=== PATIENT | female | born 1945 | race Caucasian/White ===

== ENCOUNTER 2018-12-31 00:15 | Inpatient (IN) | payer MEDICARE ==
[2018-12-31 02:09] VITALS: BP 122/75
[2018-12-31] MEDS ORDERED: Magnesium Hydroxide (MOM) 30 mL UDC PO PRN (02:26)
[2018-12-31] MEDS ORDERED: Maalox 30 mL Cup PO PRN (02:26)
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
[2019-01-01 08:13] LABS: A1C 5.5 % (4.8-5.6)
--- NOTE | 2019-01-02 00:39 | Progress Notes ---
DATE: PATIENT'S ID: The patient is a 73-year-old female. SUBJECTIVE: The patient seen and examined. The patient is lying in the bed. The patient denies any chest pain, shortness of breath, palpitation, dizziness, nausea, vomiting. PHYSICAL EXAMINATION: VITAL SIGNS: Temperature 97.6, pulse 75, respiratory rate 18, blood pressure 126/68. HEENT: No facial asymmetry. NECK: Supple, no JVD. HEART: Regular. CHEST AND LUNGS: Equal in expansion, no expiratory wheezing. ABDOMEN: Soft. EXTREMITIES: No edema. NEUROLOGIC: Alert, awake, follows commands. Decreased power throughout the upper and lower extremity. AVAILABLE DIAGNOSTIC DATA: None for my review. CLINICAL IMPRESSION: 1. Alzheimer's type dementia. 2. Hyperlipidemia. 3. Degenerative joint disease. 4. Osteoporosis. PLAN: 1. Psychotic evaluation and management deferred to psychiatrist. 2. Symptoms management. 3. Medication management. 4. Fall precautions. 5. Nutritional support. 6. General nursing care. 7. Care plan reviewed and discussed with staff. JOB# [id number]
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
--- NOTE | 2019-01-03 03:25 | Progress Notes ---
DATE: SUBJECTIVE: Chart was reviewed and the patient interviewed. Also discussed the patient's condition with the staff and reviewed records and labs. The patient is slightly confused. The patient also is withdrawn and she is also forgetful. At times, the patient seems to be fearful. She is interacting minimally with others. On the other hand, the patient is compliant with taking medications with no side effects of medications. ASSESSMENT: The patient is still depressed, psychotic, and unable to make her own decision. TREATMENT PLAN: Continue to monitor her behavior closely. Also, continue Namenda 5 mg twice a day and Aricept 10 mg at bedtime and continue to follow up closely. JOB# [id number]
--- NOTE | 2019-01-04 09:01 | Progress Notes ---
DATE: SUBJECTIVE: Chart was reviewed and the patient interviewed. Also discussed the patient's condition with the staff and reviewed records and labs. The patient remains confused and anxious. The patient also still needs lots of redirections. The patient also is still unable to provide any safe plan for self-care. At the same time, the patient continues to interact more and personal hygiene is fair and appetite is fair. ASSESSMENT: The patient is still confused and still needs a lot of caring. Also, the patient will need placement. [facility]# [id number]
--- NOTE | 2019-01-04 18:31 | Progress Notes ---
DATE: 01/04/2019 DATE OF SERVICE: 01/04/2019 IDENTIFICATION: A 73-year-old female. SUBJECTIVE: The patient seen and examined. The patient is lying in the bed. The patient denies any chest pain, shortness of breath, palpitation, dizziness, nausea, vomiting, diarrhea. PHYSICAL EXAMINATION: VITAL SIGNS: Temperature 96.9, pulse 70, respiratory rate 18, blood pressure 124/75. HEENT: No facial asymmetry. Poor dentition noted. NECK: Supple, no JVD, no hepatojugular reflux. No lymphadenopathy. HEART: Both heart sounds are regular. CHEST AND LUNGS: Equal in expansion, no expiratory wheezing. ABDOMEN: Soft, no guarding, no rigidity. Bowel sounds present. No palpable mass. EXTREMITIES: No edema. CLINICAL IMPRESSION: 1. Hyperlipidemia. 2. Osteoporosis. 3. Degenerative joint disease. 4. Alzheimer's type dementia. 5. Fall risk. PLAN: 1. Psychiatric evaluation and management deferred to psychiatrist. 2. Fall precautions. 3. Continue Aricept. 4. Symptoms management. 5. Medication management. 6. General nursing care. 7. We will follow this patient during the stay in the hospital. 8. Care plan reviewed and discussed with staff. JOB# [id number]
--- NOTE | 2019-01-04 21:11 | Progress Notes ---
DATE: 01/04/2019 SUBJECTIVE: Chart was reviewed and the patient interviewed. Also discussed the patient's condition with the staff and reviewed records and labs. The patient is still confused. The patient also is still asking "want to go home." Her judgment is still poor and the patient is still unable to make any safe plan for selfcare. The patient also is still anxious and is still depressed. Otherwise, no behavioral problems. ASSESSMENT: The patient is still depressed and is still considered to be gravely disabled. TREATMENT PLAN: Continue to monitor behavior and condition closely. Also, continue adjusting psychotropic medications and working on behavioral modification as well as placement issue. [facility]# [id number]
--- NOTE | 2019-01-05 22:48 | Progress Notes ---
DATE: SUBJECTIVE: Chart was reviewed and the patient interviewed. Also discussed the patient's condition with the staff and reviewed records and labs. The patient remains in a depressed mood. The patient also still seems to be confused with a flat affect. She also is still forgetful and she is still unable to provide any safe plan for selfcare. The patient also is still suspicious and seems to be paranoid. Otherwise, she is able to follow directions with no problems. ASSESSMENT: The patient is still depressed and still considered to be gravely disabled and unable to make decisions for herself at this time. TREATMENT PLAN: We will continue monitoring her behavior closely. Also, continue Aricept at a dose of 10 mg every day and Namenda was increased to 5 mg twice a day. Also, working on discharge plans and placement issue. JOB# [id number]
--- NOTE | 2019-01-07 01:30 | Progress Notes ---
DATE: 01/06/2019 SUBJECTIVE: Chart was reviewed and the patient interviewed. Also I discussed the patient's condition with the staff and reviewed records and labs. The patient is still withdrawn and guarded. The patient also is suspicious and paranoid and seems to be preoccupied. The patient also is forgetful and confused and needs lots of redirections. She also continued to be unable to provide any safe plan for self-care. ASSESSMENT: The patient is still psychotic. TREATMENT PLAN: Continue to monitor her behavior and her condition closely. Also, we will continue adjusting psychotropic medications and continue Namenda 5 mg twice a day and Aricept 10 mg at bedtime and continue to monitor behavior and condition closely. [facility]# [id number]
--- NOTE | 2019-01-07 22:39 | Progress Notes ---
DATE: 01/07/2019 SUBJECTIVE: Chart reviewed and the patient interviewed. Also discussed the patient's condition with the staff and reviewed records and labs. The patient is still confused and she still needs directions. The patient also is still anxious about where she is going to live and still unable to come up with a safe plan for her self-care or her discharge. She is still suspicious and slightly paranoid. Otherwise, the patient is easy to redirect her, and she is compliant with taking her Namenda and Aricept with no side effects. ASSESSMENT: The patient is still confused and considered to be gravely disabled. TREATMENT PLAN: Continue monitoring her behavior and her condition closely. Also, continue to work on discharge plans and placement issue. [facility]# [id number]
--- NOTE | 2019-01-08 20:52 | Progress Notes ---
DATE: 01/08/2019 PSYCHIATRIC PROGRESS NOTE SUBJECTIVE: Chart was reviewed and the patient interviewed. Also discussed the patient's condition with the staff and reviewed records and labs. The patient is still confused and still needs lots of redirections. The patient also is still isolative and tends to stay by herself most of the time. She also is still suspicious. On the other hand, the patient continued to comply with taking her medications with no side effects of medications. ASSESSMENT: The patient is still confused and needs redirections. TREATMENT PLAN: Continue to monitor her behavior and her condition closely. Also, continue working on adjusting her psychotropic medications and also working on placement issue and discharge plans. JOB# [id number]
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
--- NOTE | 2019-01-10 09:59 | Progress Notes ---
DATE: SUBJECTIVE: Chart was reviewed and the patient interviewed. Also discussed the patient's condition with the staff and reviewed records and labs. The patient is still forgetful and still needs redirections, but at the same time, the patient is pleasant and exhibiting no major behavioral problems. The patient also is able to follow instructions. She also still needs redirections. The patient also still unable to come up with a safe plan for self care because of her memory and forgetfulness. ASSESSMENT: The patient is still considered to be gravely disabled. TREATMENT PLAN: Continue to work with discharge planners in regard to placement issue and continue to follow up closely. Also, we will increase Namenda to 10 mg twice a day and continue Aricept to 10 mg every day and will continue to follow up. [facility]# [id number]
--- NOTE | 2019-01-11 18:55 | Progress Notes ---
DATE: SUBJECTIVE: Chart was reviewed and the patient interviewed. Also discussed the patient's condition with the staff and reviewed records and labs. The patient is calm, quiet, and withdrawn. The patient also is still confused and asking to go home, but have no safe plan for her going home. The patient also is still anxious. Otherwise, the patient denies any side effects of medications and continues to take Aricept and Namenda. ASSESSMENT: The patient is still considered to be gravely disabled. TREATMENT PLAN: Continue to monitor her behavior and her condition closely and continue working on discharge plans and placement issue. JOB# [id number]
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
--- NOTE | 2019-01-16 01:43 | Progress Notes ---
DATE: 01/15/2019 SUBJECTIVE: Chart was reviewed and the patient interviewed. Also discussed the patient's condition with the staff and reviewed records and labs. The patient is still confused and still needs lots of redirections. The patient also is withdrawn and interacting minimally with others. The patient, on the other hand is compliant with taking her medications with no side effects of medications. ASSESSMENT: The patient is still considered to be gravely disabled and confused. TREATMENT PLAN: Continue monitoring her behavior and her condition closely. Also, continue adjusting psychotropic medications and follow up closely, also working on discharge plans and placement issue. JOB# [id number]
--- NOTE | 2019-01-17 01:50 | Progress Notes ---
DATE: 01/16/2019 Case was discussed with staff of the patient, reviewed records. Covering for Dr. Mason. This is a well-known case to me as I have evaluated her upon admission. The patient is somewhat brighter. The patient continues to be; however, withdrawn, interacting minimally with staff. The patient; however, is compliant with the medication with no side effects. Continues to be unable to make safe plan for self-care. She is somewhat confused. No side effects with the medication, no sedation, no nausea, no extrapyramidal symptoms. We will continue to work with the patient in group therapy, milieu therapy, adjust medication as needed. JOB# [id number]
--- NOTE | 2019-01-17 22:58 | Progress Notes ---
DATE: 01/17/2019 Case was discussed with staff of the patient, reviewed records. The patient continues to be confused, withdrawal, isolate herself, minimal interaction, unable to formulate a safe plan for self-care. Continues to be unpredictable, impulsive. No side effects of the medication, no sedation, no nausea. We will continue to work with the patient in group therapy, milieu therapy, and adjust the medication as needed. [facility]# [id number]
--- NOTE | 2019-01-18 18:39 | Progress Notes ---
DATE: SUBJECTIVE: Chart was reviewed and the patient interviewed. Also discussed the patient's condition with the staff and reviewed records and labs. The patient is still in a depressed mood and the patient is still anxious. The patient also is still forgetful and has difficulty making up her needs known. The patient also is still unable to provide any safe plan for her self-care. At the same time, the patient is compliant with taking her medications and cooperative with her treatment. ASSESSMENT: The patient is still depressed and confused and considered to be gravely disabled. TREATMENT PLAN: We will continue monitoring her behavior and her condition and continue adjusting psychotropic medications and work on behavioral modification. JOB# [id number]
--- NOTE | 2019-01-19 06:37 | Progress Notes ---
DATE: SUBJECTIVE: Chart reviewed and the patient interviewed. Also discussed the patient's condition with the staff and reviewed records and labs. The patient is still in a depressed mood and she is still withdrawn. The patient also is forgetful and she is still trying to manage and still has difficulty providing any safe plan for self-care. The patient is still guarded and withdrawn. ASSESSMENT: The patient is still forgetful and unable to provide safe plan for self-care. TREATMENT PLAN: Continue monitoring her behavior closely. Also waiting for showcase maker to bring outcome of her placement and up until now the patient has no place to live. At the same time, we will continue working on placement and followup. JOB# [id number]
--- NOTE | 2019-01-20 19:10 | Progress Notes ---
DATE: 01/20/2019 DATE OF SERVICE: 01/20/2019 SUBJECTIVE: Chart was reviewed and the patient interviewed. Also discussed the patient's condition with the staff and reviewed records and labs. The patient remains in a depressed mood. The patient also is still anxious and is still withdrawn and guarded. The patient also seems to be confused and still needs redirections and assurance. She is compliant with taking her medications. The patient is still unable to provide any safe plan for self-care and still needs close monitoring and reassurance. The patient also still waiting for placement. ASSESSMENT: The patient is still considered to be gravely disabled. TREATMENT PLAN: We will continue monitoring her behavior and her condition and also continue to work on her ineffective coping. Also, working with senior case manager in regard to discharge plans and placement issue. JOB# [id number]
--- NOTE | 2019-01-22 09:58 | Progress Notes ---
DATE: 01/21/2019 SUBJECTIVE: Chart reviewed and the patient interviewed. Also discussed the patient's condition with the staff and reviewed records and labs. The patient is still in a depressed mood. The patient also is still confused and anxious and still unable to come up with a safe plan for safety care. The patient also still has difficulty with making plan for her discharge and still think that she can go home. At the same time working with the staff to get her to go to [facility] and will continue Abilify same dose and continue to follow up. JOB# [id number]
--- NOTE | 2019-01-22 22:49 | Progress Notes ---
DATE: SUBJECTIVE: Chart was reviewed and the patient interviewed. Also discussed the patient's condition with the staff and reviewed records and labs. The patient is still confused and still needs redirections. The patient also is still forgetful and still has difficulty retaining patient information. She is still asking for going home with no safe plan for self-care. On the other hand, no side effects of medications. ASSESSMENT: The patient is still considered to be gravely disabled. TREATMENT PLAN: I did fill some information to [facility] regarding her placement there. Waiting for approval from [facility] to be transferred there. At the same time, we will continue to monitor medications and condition and continue to follow up. JOB# [id number]
--- NOTE | 2019-01-24 02:35 | Progress Notes ---
DATE: 01/23/[address] Mason. Case was discussed with staff of the patient, reviewed records. This is a well-known case to me. I have seen her before covering for Dr. Mason. The patient continues to be confused, needing redirection. Continues to be very forgetful, difficulty retaining information. She is still asking to go home with no safe plan for self-care. She is compliant with the medication with no side effects. Continues to be considered gravely disabled. She has been compliant with the medication with no side effects, no sedation, no nausea and she is on Aricept and Namenda. We will continue to work with the patient in group therapy, milieu therapy, and adjust the medication as needed. JOB# [id number]
--- NOTE | 2019-01-25 11:55 | Progress Notes ---
DATE: 01/24/2019 SUBJECTIVE: Chart was reviewed and the patient interviewed. Also discussed the patient's condition with the staff and reviewed records and labs. The patient is still anxious and depressed. The patient also is still slightly confused. She is also interacting minimally with others. The patient also is still forgetful and needs lots of redirections. Otherwise, the patient is compliant with taking her medications with no side effects of medications. ASSESSMENT: The patient is still forgetful and needs placement. TREATMENT PLAN: We will monitor her behavior closely. Also discussed with case hardenermanager cardiac issue and waiting for conservative shift and also to try to get approval for the patient from Adult Protective Services in order to place the patient. At the same time, the patient still needs close monitoring and needs to work on her confusion and continue to follow up. JOB# [id number]
--- NOTE | 2019-01-26 18:21 | Progress Notes ---
DATE: 01/25/2019 SUBJECTIVE: Chart was reviewed and the patient interviewed. Also discussed the patient's condition with the staff and reviewed records and labs. The patient is still confused and anxious, but her affect is brighter. The patient also is cooperative with her treatment. She denies any intention to harm herself or others. She still has no safe plan for her discharge. ASSESSMENT: The patient is still concerned to be gravely disabled. TREATMENT PLAN: Continue Namenda 10 mg twice a day and Aricept 10 mg at bedtime. Also, continue working on her ineffective coping and her placement issue and discharge plans. optician manager still waiting for some kind of approval from a conservator in order for the patient to go to [facility]. At the same time, we will continue monitoring behavior and condition closely and continue to follow up. JOB# [id number]
--- NOTE | 2019-01-27 08:08 | Progress Notes ---
DATE: SUBJECTIVE: Chart was reviewed and the patient interviewed. Also discussed the patient's condition with the staff and reviewed records and labs. The patient is still depressed and confused. The patient also is still isolative and withdrawn. She also is still feeling hopeless and helpless. Otherwise, the patient is still unable to provide any safe plan for self-care and is still talking about going to her home and about her mom's need in the bank. ASSESSMENT: The patient is still gravely disabled. TREATMENT PLAN: Continue to monitor her behavior and her current condition. Also, continue to monitor psychotropic medications. [facility]# [id number]
--- NOTE | 2019-01-27 23:40 | Progress Notes ---
DATE: 01/27/[address] Mason. SUBJECTIVE: This is a well-known case to me and seen him before many times covering for Dr. Mason. The patient continues to be confused, depressed, isolating herself, feeling hopeless and helpless, unable to provide a safe plan for self-care, unpredictable, impulsive. She is still gravely disabled. Continue to being compliant with the medication with no side effects. We will continue the patient in group therapy, milieu therapy, adjust medication as needed. [facility]# [id number]
--- NOTE | 2019-01-28 12:19 | Progress Notes ---
DATE: 01/28/2019 FOLLOWUP PROGRESS NOTE PROGRESS ON THE UNIT: Case discussed with staff of the patient, reviewed records. The patient continues to be unpredictable, impulsive, confused, unable to make a safe plan for self-care, preoccupied with discharge, easily agitated. No side effects to the medication, no sedation, no nausea, no extrapyramidal symptoms. We will continue to work with the patient in group therapy and milieu therapy, adjust the medication as needed. JOB# [id number]
--- NOTE | 2019-01-30 05:11 | Progress Notes ---
DATE: SUBJECTIVE: Chart was reviewed and the patient interviewed. Also discussed the patient's condition with the staff and reviewed records and labs. The patient is still forgetful and still has difficulty making decisions. She also is still in a depressed mood. On the other hand, the patient is calm and cooperative and she is compliant with medications and also is still waiting for placement issue. drug worker is still reporting the patient's money is locked and waiting to release the money. On the other hand, the patient is still close observation, close monitoring. ASSESSMENT: The patient is still depressed but cooperative. TREATMENT PLAN: Continue monitoring her behavior. Also, continue to work with employment case manager in regard to discharge plans and placement issue. JOB# [id number]
--- NOTE | 2019-01-30 18:57 | Progress Notes ---
DATE: 01/30/2019 SUBJECTIVE: Chart reviewed and the patient interviewed. Also discussed the patient's condition with the staff and reviewed the records and labs. The patient is still confused. The patient also is still withdrawn and interacting minimally with others. The patient also still needs a lot of redirections and also needs encouragement. Otherwise, the patient is compliant with taking her medications. ASSESSMENT: The patient is still considered to be gravely disabled. TREATMENT PLAN: Continue to monitor her behavior and her condition closely. Also, continue to work on her ineffective coping as well as on discharge plans and placement issue. developer relations manager still telling me that patient's money is locked and there is no place to accept her. We will continue working on placement issue and on discharge plans. JOB# [id number]
--- NOTE | 2019-01-31 18:31 | Progress Notes ---
DATE: 01/31/2019 SUBJECTIVE: Chart reviewed and the patient interviewed. Also discussed the patient's condition with the staff and reviewed records and labs. The patient is still confused and is still withdrawn. The patient also still has difficulty carrying on conversation or making up decisions regard to her placement and she is still thinking that "I want to go home." Continued to discuss with the patient that she is not able to return back to her home, but the patient has difficulty accepting that. At the same time, case investigator is still trying to get the patient placed, but waiting for release of her funds. ASSESSMENT: The patient is still considered to be gravely disabled. TREATMENT PLAN: Continue current treatment and hospitalization. Also, continue to work on placement of the patient and followup. JOB# [id number]
--- NOTE | 2019-02-03 16:43 | Progress Notes ---
DATE: SUBJECTIVE: Chart was reviewed and the patient interviewed. Also discussed the patient's condition with the staff and reviewed records and labs. The patient is withdrawn and she is paranoid. The patient also is guarded and still needs lots of redirections. She is still unable to provide any safe plan for self-care. ASSESSMENT: The patient is still paranoid and still considered to be gravely disabled. TREATMENT PLAN: Continue to monitor behavior and condition. Also, porter sample case continued to try to place the patient somewhere, but still saying that the patient's funds are locked and is still trying to get her placed when her funds are released. At the same time, we will continue to monitor her medications and continue to follow up. [facility]# [id number]
--- NOTE | 2019-02-03 16:43 | Progress Notes ---
DATE: 02/02/2019 SUBJECTIVE: Chart was reviewed and the patient interviewed. Also discussed the patient's condition with the staff and reviewed records and labs. The patient is still anxious about her discharge and she is still unable to provide a safe plan for self-care. She still thinks that she can go home. On the other hand, the patient is easier to redirect and she is accepting instructions from staff. She also denies any intention to harm herself or others. She also is compliant with taking medications with no side effects of medications. ASSESSMENT: The patient still needs close monitoring and need placement and considered to be gravely disabled. TREATMENT PLAN: Continue to monitor her behavior and her condition and continue monitoring psychotropic medications. Also, continue to work on placement issue and discharge plans. JOB# [id number]
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
--- NOTE | 2019-02-04 09:21 | Progress Notes ---
DATE: 02/04/2019 SUBJECTIVE: The patient in the hospital, no confirmed discharge plan, noted by nursing staff to be generally calm and cooperative, but confused. Sleeping fairly well, eating with some prompting. AO to name only. No agitation, no escalation of behaviors, unable to care for her basic needs. We are trying to help her with placement, sometimes preoccupied with own thoughts, withdrawn. We will continue to monitor. We are actively trying to confirm a safe discharge plan. The patient quite confused. JOB# [id number]
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
--- NOTE | 2019-02-07 02:22 | Progress Notes ---
DATE: 02/06/2019 SUBJECTIVE: The patient remains very preoccupied, confused, demanding that I call the copy center specialist, "they know me." ASSESSMENT: The patient poorly oriented, ongoing concerns about her ability to care for self. The patient has fair sleep, fair appetite, mostly keeping to herself, highly disoriented. PLAN: We will continue to monitor. We are trying to figure out a safe discharge plan. Continue current dosing of Namenda. JOB# [id number]
--- NOTE | 2019-02-07 21:47 | Progress Notes ---
DATE: 02/07/2019 SUBJECTIVE: Chart reviewed and patient interviewed. Also discussed the patient's condition with the staff and reviewed records and labs. The patient is still anxious and is still confused. The patient also is still wondering about "going home." She is still not able to come up with a safe plan for self-care. At the same time, case loader operator is still unable to provide placement for the patient and still working with public office in order to try to get her placed. ASSESSMENT: The patient is still confused and needs placement and redirections. TREATMENT PLAN: Continue to monitor behavior and continue to work on her irritability and we will continue to follow up. JOB# [id number]
--- NOTE | 2019-02-08 20:36 | Progress Notes ---
DATE: 02/08/2019 SUBJECTIVE: Chart was reviewed and the patient interviewed. Also discussed the patient's condition with the staff and reviewed records and labs. The patient's affect is brighter, but she is still confused and the patient is still unable to provide a safe plan for self-care. She also is still anxious and is still in a depressed mood at times, but most of the time she seemed cheerful. She denies any intention to harm herself or others, but she is still unable to provide any safe plan for self-care. ASSESSMENT: The patient is still confused and considered gravely disabled and waiting for nurse case management, with placement issues and situations. The patient still needs placement and we will continue to work on placement issue. TREATMENT PLAN: We will plan to continue to work on placement issue and discharge plans and continue to follow up. JOB# [id number]
--- NOTE | 2019-02-09 21:29 | Progress Notes ---
DATE: 02/09/2019 SUBJECTIVE: Chart was reviewed and the patient interviewed. Also discussed the patient's condition with the staff and reviewed records and labs. The patient is still confused and is still in a depressed mood and still unable to provide any safe plan for self-care. The patient also is still anxious. The patient also is denying any intention to harm herself or others, but at the same time, she is unable to provide any safe plan for self-care. She also is still confused. Otherwise, the patient is compliant with taking her medications and no behavioral issues. ASSESSMENT: The patient is still considered to be gravely disabled. TREATMENT PLAN: We will continue monitoring her behavior. Also, continue to work on her placement and followup. JOB# [id number]
--- NOTE | 2019-02-11 16:50 | Progress Notes ---
DATE: 02/10/2019 SUBJECTIVE: Chart was reviewed and the patient interviewed. Also discussed the patient's condition with the staff and reviewed records and labs. The patient has been getting out of her room more, but at the same time, she is still anxious and still unable to provide any safe plan for self-care. The patient also is still interacting minimally with others. Otherwise, the patient is compliant with taking her medications. She is still confused. ASSESSMENT: The patient is still anxious and is still confused. TREATMENT PLAN: Continue to monitor her behavior and her condition, and continue to work on her placement and followup. JOB# [id number]
--- NOTE | 2019-02-12 00:15 | Progress Notes ---
DATE: 02/11/2019 SUBJECTIVE: Chart was reviewed and the patient interviewed. Also discussed the patient's condition with the staff and reviewed records and labs. The patient's affect is brighter, but the patient is still confused and she still needs lots of redirections. The patient also is still unable to make her needs known and unable to bring up or to come up with any safe plan for self-care. She is compliant with taking her medications with no side effects of medications. ASSESSMENT: The patient is still confused and gravely disabled. TREATMENT PLAN: Continue to monitor her behavior. Also, continue to work on placement issue and discharge plans. JOB# [id number]
--- NOTE | 2019-02-13 17:13 | Progress Notes ---
DATE: 02/12/2019 SUBJECTIVE: Chart was reviewed and the patient interviewed. Also discussed the patient's condition with the staff and reviewed records and labs. The patient is still anxious and slightly confused, but she also has started to get out more of the room and tries to go to attend the groups, although she is not participating because of her confusion. The patient also still needs redirections. On the other hand, the patient is compliant with treatment and medications. She is still asking for when she is going to go home and is still unable to provide any safe plan for self-care. ASSESSMENT: The patient is still considered to be gravely disabled. TREATMENT PLAN: Continue to monitor behavior and condition closely. Also, continue adjusting psychotropic medications and followup. [facility]# [id number]
--- NOTE | 2019-02-14 01:36 | Progress Notes ---
DATE: 02/13/2019 SUBJECTIVE: Chart was reviewed and the patient interviewed. Also discussed the patient's condition with the staff and reviewed records and labs. The patient is still forgetful and is still confused, but her affect is brighter and the patient is cooperative with her treatment. The patient also is compliant with taking her medication, which is Aricept and Namenda. She is still unable to provide any safe plan for self-care although she is still asking for "going home." No behavioral issues. Fair sleep and fair hygiene. ASSESSMENT: The patient is still considered to be gravely disabled. TREATMENT PLAN: Continue monitoring her behavior and her condition and continue to work on her discharge plans and placement issue. [facility]# [id number]
--- NOTE | 2019-02-14 19:01 | Progress Notes ---
DATE: 02/14/2019 SUBJECTIVE: Chart was reviewed and the patient interviewed. Also discussed the patient's condition with the staff and reviewed records and labs. The patient is still confused and anxious. The patient also still has difficulty accepting the fact that she is waiting for placement and she cannot return back to her place. At the same time, the patient is cooperative and compliant with her treatment and she denies any side effects of her medications. ASSESSMENT: The patient is still considered to be gravely disabled and she is still confused. TREATMENT PLAN: Continue to monitor her behavior and condition and continue current medications. Also, continue to work with window caser in regard to placement issue and discharge plans. JOB# [id number]
--- NOTE | 2019-02-15 22:15 | Progress Notes ---
DATE: SUBJECTIVE: Chart was reviewed and the patient interviewed. Also discussed the patient's condition with the staff and reviewed records and labs. The patient is calm and cooperative. She is still confused, but no behavioral issues with the patient. The patient is still unable to provide any safe plan for self-care. On the other hand, no side effects of the patient's medications. The patient continued to take Aricept and Namenda. ASSESSMENT: The patient is still considered to be gravely disabled. TREATMENT PLAN: It is not clear to me why the patient is still in the hospital all this time and why placement for her is not arranged, although the patient has sufficient funds, money and human services case manager continued to say that conservative shift issues, but no dates and no more information available for me. It seemed that the patient is regressing and her condition deteriorating with long hospital stay and I am trying to push for patient to be discharged from the hospital, but at the same time, still no reports of placement and the patient cannot return to her previous placement according to staff. ASSESSMENT: The patient is still considered gravely stable, but she is ready for discharge. TREATMENT PLAN: Continue to work on placement and work with human services case manager in regard to discharge plans. JOB# [id number]
--- NOTE | 2019-02-16 14:15 | Progress Notes ---
DATE: SUBJECTIVE: Chart was reviewed and the patient interviewed. Also discussed the patient's condition with the staff and reviewed records and labs. The patient's affect is brighter. The patient is less agitated and she is interacting more, but she is still confused and her interaction is in a confused state. The patient also still needs lots of redirections. The patient also is having difficulty following directions at times. She is still unable to provide any safe plan for self-care and she still thinks that she can go back to her home in spite of explaining to the patient the reason why she is in the hospital and the reason why she cannot return back to her home. ASSESSMENT: The patient is still considered to be gravely disabled. TREATMENT PLAN: We will continue to monitor her behavior and her condition closely. Also, continue working on discharge plans and placement issue since the patient is still considered to be gravely disabled and unable to return to her previous placement or to her home. [facility]# [id number]
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
--- NOTE | 2019-02-18 23:59 | Progress Notes ---
DATE: 02/18/2019 SUBJECTIVE: The patient was seen and evaluated. The patient's chart reviewed ____. Today on dsia-vu-oldo evaluation, the patient denies any ____, she has a friend in the police department who she needs to contact, so she can get delivery to her house. MENTAL STATUS EXAMINATION: Mildly disorganized and confused. ASSESSMENT AND PLAN: We will continue with the current medication regimen as she continued to be very disabled secondary to the patient's severe dementia. We will continue working with mental rn case management ____. JOB# [id number]
--- NOTE | 2019-02-19 18:31 | Progress Notes ---
DATE: 02/19/2019 SUBJECTIVE: Case was discussed with staff of the patient, reviewed records, well-known case to me. I have seen her before covering for Dr. Mason. The patient reported that the plan is that she is supposed to be leaving today. She is still confused, mumbling to herself. Continues to be unable to make safe plan for self-care. This is probably her basic level of functioning. She is on Namenda and Aricept. The patient is discharged today, will need to follow up with the psychiatrist, primary care physician and therapist. We will continue with the patient in group therapy, milieu therapy, and adjust medications as needed. JOB# [id number]
--- NOTE | 2019-02-21 00:05 | Progress Notes ---
DATE: 02/20/2019 SUBJECTIVE: Case was discussed with staff of the patient, reviewed records. The patient is leaving today; however, not sure if this is right. No side effects with the medication, no sedation, and no nausea. She is sleeping well, eating well. Working on discharge plan. We will continue to work with the patient in group therapy, milieu therapy, and adjust the medications as needed. JOB# [id number]
--- NOTE | 2019-02-22 08:40 | Progress Notes ---
DATE: 02/22/2019 DATE OF SERVICE: 02/22/2019 SUBJECTIVE: Chart reviewed and the patient interviewed. Also discussed the patient's condition with the staff and reviewed records and labs. The patient is calm and is cooperative. The patient also is not agitated. Easy to redirect her. The patient also is compliant with taking her medications. She still needs medical support assistant and confused and still unable to make decisions. ASSESSMENT: The patient is still considered to be gravely disabled and waiting for placement. TREATMENT PLAN: The patient has court date today and she is going to the court for having public guardian assigned to her properties. Also, we will work on discharge plans and placement as soon as the patient gets a court order with a conservator. JOB# [id number]
--- NOTE | 2019-02-22 19:54 | Progress Notes ---
DATE: 02/21/2019 DATE: 02/21/2019. SUBJECTIVE: Chart was reviewed and the patient interviewed. Also discussed the patient's condition with the staff and reviewed records and labs. The patient is still calm, but anxious and still seems to be in a depressed mood. The patient also is interacting minimally with others. She is also unable to make any decisions for herself and she is forgetful. Otherwise, the patient is compliant with taking her medications with no side effects. ASSESSMENT: The patient is still considered to be gravely disabled. TREATMENT PLAN: Continue current condition and medications and monitoring her closely. Also, tomorrow will be a court date for a conservatorship hearing. At the same time, we will continue working on her placement and discharge plans. JOB# [id number]
--- NOTE | 2019-02-23 20:29 | Progress Notes ---
DATE: SUBJECTIVE: Chart reviewed and the patient interviewed. Also discussed the patient's condition with the staff and reviewed records and labs. The patient is still anxious and is still confused and depressed. The patient also still has no safe plan for self-care, but at the same time yesterday, the patient went to court and it seems that the court approved her condition in regard to her disability and in regard to her conservatorship. It is not clear to me what will be the next step, but definitely waiting for placement. ASSESSMENT: The patient is still considered to be gravely disabled. TREATMENT PLAN: Continue working on placement and continue current medications, Aricept and Namenda. Also, continue to follow up. Vital signs are stable and the patient has steady gait. No new labs available for review. JOB# [id number]
--- NOTE | 2019-02-26 01:06 | Progress Notes ---
DATE: 02/25/2019 SUBJECTIVE: Chart was reviewed and the patient interviewed. Also discussed the patient's condition with the staff and reviewed the records and labs. The patient is still anxious and is still in a depressed mood, but no behavioral issues. The patient also is still unable to provide any safe plan for self-care. The patient also is still unable to provide any safe plan and at the same time, the patient is compliant with taking Aricept and Namenda. We will continue same dose and we will continue to follow up. [facility]# [id number]
--- NOTE | 2019-02-26 10:01 | Progress Notes ---
DATE: 02/24/2019 SUBJECTIVE: Chart was reviewed and patient interviewed. Also discussed the patient's condition with the staff and reviewed records and labs. The patient is still depressed and withdrawn. The patient also is still easily agitated. The patient also still has been unable to provide any safe plan for self-care. At the same time, the patient does not understand the process of the court and what happened in the court and still asking to go home. At the same time, she is compliant with taking her medications. ASSESSMENT: The patient is still considered to be gravely disabled. TREATMENT PLAN: Continue monitoring behavior and condition closely. Also, continue to work on placement issue and discharge plans. JOB# [id number]
--- NOTE | 2019-03-01 00:25 | Progress Notes ---
DATE: 02/28/2019 SUBJECTIVE: Chart was reviewed and the patient interviewed. Also discussed the patient's condition with the staff and reviewed records and labs. The patient's affect is brighter. The patient is less anxious, but she is still confused and she is still unable to provide any safe plan for self-care. She also is still interacting minimally with others. Otherwise, the patient is compliant with taking her medications with no side effects of medications. ASSESSMENT: The patient is calm, but confused and still needs placement. TREATMENT PLAN: Continue to monitor her behavior and her condition. Also, continue adjusting psychotropic medications and work on behavioral modification. [facility]# [id number]
--- NOTE | 2019-03-01 15:50 | Progress Notes ---
DATE: 03/01/2019 SUBJECTIVE: Case was discussed with staff of the patient, reviewed records. The patient is brighter, decrease anxiety. She continues to be confused, unable to provide safe plan for self-care. The patient reported that she went to court yesterday; however, I could not find any documentation about that. She said, she will be leaving in 2 days. She continues to be unable to take care of herself on her own. No side effects with the medication, no sedation, no nausea. She has been here for a long period of time, almost 2 months. I will continue outpatient group therapy, milieu therapy, and adjust medications as needed. JOB# [id number]
--- NOTE | 2019-03-02 04:12 | Progress Notes ---
DATE: 02/26/2019 DATE OF SERVICE: 02/26/2019 SUBJECTIVE: Chart was reviewed and the patient interviewed. Also discussed the patient's condition with the staff and reviewed records and labs. The patient is still anxious and she is still isolative and withdrawn. The patient also seems to be depressed. The patient also has difficulty making decisions. The patient also is compliant with taking medications and no side effects of medications. ASSESSMENT: The patient is still considered to be gravely disabled. TREATMENT PLAN: Continue to monitor her behavior and her condition closely. Also, continue working on discharge plans and placement issue. JOB# [id number]
--- NOTE | 2019-03-02 09:20 | Progress Notes ---
DATE: 02/27/2019 DATE OF SERVICE: 02/27/2019 SUBJECTIVE: Chart was reviewed and the patient interviewed. Also discussed the patient's condition with the staff and reviewed records and labs. The patient is still forgetful and confused. The patient also still needs redirections. Otherwise, the patient is compliant with taking her medications with no side effects of medications. ASSESSMENT: The patient is still gravely disabled. TREATMENT PLAN: Continue current treatment and current medications. Also, working on placement issue and on discharge plans. JOB# [id number]
--- NOTE | 2019-03-02 19:53 | Progress Notes ---
DATE: 02/26/2019 DATE OF SERVICE: 02/26/19 SUBJECTIVE: Chart was reviewed and the patient interviewed. Also discussed the patient's condition with the staff and reviewed records and labs. The patient is still in a depressed mood. The patient also is still anxious and she is still interacting minimally with others. She also seems to be slightly confused, but at the same time, pleasantly confused and no behavioral problems. The patient denies any side effects of medications. ASSESSMENT: The patient is still considered to be gravely disabled and waiting for placement. TREATMENT PLAN: We will continue monitoring her behavior and continue to work on discharge plans and placement issue. Also, continue current medications. JOB# [id number]
--- NOTE | 2019-03-03 21:46 | Progress Notes ---
DATE: 03/03/[address] Mason. SUBJECTIVE: Case was discussed with staff of the patient, reviewed records. This is a well-known case to me and seen her before many times covering for Dr. Mason. The patient is awaiting placement. She continues to be anxious, interacting minimally with others. She continues to have poor insight. She is confused. She is unable to make safe plan for for self-care. She continues to be gravely disabled, awaiting placement. No side effects with medication, no sedation, and no nausea. We will continue to work with the patient in group therapy, milieu therapy, and adjust the medications as needed. JOB# [id number]
--- NOTE | 2019-03-04 23:45 | Progress Notes ---
DATE: 03/04/2019 Case was discussed with staff of the patient, reviewed records. The patient continues to have poor insight, unpredictable, impulsive, confused, working on placement for this patient. Minimal interaction with staff and others, unable to make safe plan for self-care, very poor insight. However, the staff is working on placement for this patient. We will continue to work with the patient in group therapy, milieu therapy, and adjust the medication as needed. JOB# [id number]
--- NOTE | 2019-03-05 20:49 | Progress Notes ---
DATE: 03/05/2019 SUBJECTIVE: Case was discussed with staff of the patient, reviewed treatment plans and goals, the patient is in agreement. The patient is doing well today. She continues to be confused, unable to make safe plan for self-care. She continues to have poor insight. She is on Namenda and Aricept. She is awaiting placement. No side effects with the medication, no sedation, and no nausea. We will continue to work with the patient in group therapy, milieu therapy, and adjust the medications as needed. JOB# [id number]
--- NOTE | 2019-03-07 01:27 | Progress Notes ---
DATE: 03/06/2019 Case was discussed with staff of the patient, reviewed records. The patient continues to be confused, continues to be unable to make safe plan for self-care, but she is sleeping well. She is eating well. No acting out behavior. However, she has episodes of irritability, responding better to redirection. Working on discharge plan and we will continue to work with the patient in group therapy, milieu therapy, and adjust the medication as needed. [facility]# [id number]
--- NOTE | 2019-03-08 22:48 | Progress Notes ---
DATE: 03/08/2019 PSYCHIATRIC PROGRESS NOTE SUBJECTIVE: Chart was reviewed and the patient interviewed. Also, discussed the patient's condition with the staff and reviewed records and labs. The patient remains in a depressed mood. The patient also is still anxious and is still withdrawn and interacting minimally with others. The patient also still has difficulty making decisions and slightly confused. Otherwise, the patient has no major behavioral problems. ASSESSMENT: The patient is still considered to be gravely disabled and waiting for discharge plans and placement issue. The patient is still depressed and needs close monitoring and placement. TREATMENT PLAN: Waiting for associate media planner to find a placement for the patient and at the same time, we will continue managing her medications and condition. [facility]# [id number]
--- NOTE | 2019-03-09 07:40 | Progress Notes ---
DATE: SUBJECTIVE: Chart was reviewed and the patient interviewed. Also discussed the patient's condition with the staff and reviewed records and labs. The patient's affect is brighter. The patient is cooperative with her treatment. She also is compliant with taking her medications. She is still forgetful and has difficulty making decisions, but no behavioral issues. ASSESSMENT: The patient is still awaiting for placement and casework specialist is still working on discharge plans and placement issue. TREATMENT PLAN: Continue current treatment and current medications and continue to work on discharge plans and placement issue. JOB# [id number]
--- NOTE | 2019-03-10 22:53 | Progress Notes ---
DATE: 03/10/2019 PSYCHIATRIC PROGRESS NOTE SUBJECTIVE: Chart was reviewed and the patient interviewed. Also discussed the patient's condition with the staff and reviewed records and labs. The patient is still anxious and is still depressed. The patient also is interacting minimally with peers and with others. The patient also is still forgetful and needs redirections. Otherwise, no behavioral problems. She is basically waiting for placement. ASSESSMENT: The patient is still awaiting for placement and still confused. TREATMENT PLAN: Continue to monitor her behaviors and her condition closely. Also, continue adjusting psychotropic medications and work on behavioral modifications if needed. JOB# [id number]
--- NOTE | 2019-03-11 20:22 | Progress Notes ---
DATE: SUBJECTIVE: Chart was reviewed and the patient interviewed. Also discussed the patient's condition with the staff and reviewed the records and labs. The patient seems to be less depressed and she seems to be more visible on the unit and getting out of her room more and she has been eating dinner with other patients rather than staying alone. She also is smiling more. Otherwise, the patient denies any side effects of medications and she is still waiting patiently regarding her placement issue. ASSESSMENT: The patient is still confused and considered to be gravely disabled. TREATMENT PLAN: Continue to monitor her behavior and her condition and continue to work on placement issue. JOB# [id number]
--- NOTE | 2019-03-12 09:38 | Progress Notes ---
DATE: 03/12/2019 SUBJECTIVE: Chart was reviewed and the patient interviewed. Also discussed the patient's condition with the staff and reviewed the records and labs. The patient's affect is brighter. The patient is calm and cooperative. She is also interacting more with peers and others. She is forgetful and she still needs lots of redirections. Otherwise, the patient is compliant with taking Aricept and Namenda with no side effects. ASSESSMENT: The patient is still depressed and waiting for placement. TREATMENT PLAN: Continue to monitor her behavior and her condition and continue working on discharge plans. JOB# [id number]
--- NOTE | 2019-03-14 01:41 | Progress Notes ---
DATE: SUBJECTIVE: Chart was reviewed and the patient interviewed. Also discussed the patient's condition with the staff and reviewed records and labs. "I'm checking out today." The patient seems to be more verbal and she is talking more about herself and about her feelings. She is still anxious about her discharge, and she is still disappointed for long hospital stay. Also, she seems to be in a depressed mood. At the same time, the patient is participating more in groups and interacting slightly more. ASSESSMENT: The patient is still depressed and confused and needs close monitoring. TREATMENT PLAN: Continue current treatment and medications and continue to work on placement. JOB# [id number]
--- NOTE | 2019-03-14 23:43 | Progress Notes ---
DATE: SUBJECTIVE: Chart was reviewed and the patient interviewed. Also discussed the patient's condition with the staff and reviewed records and labs. The patient's affect is brighter and the patient less agitated and less irritable, but she is still confused and still needs redirections. The patient also still has difficulty making decisions. The patient also is still waiting for placement, but at the same time she is asking about when she is going to leave. Otherwise, the patient is compliant with taking her medications with no side effects. ASSESSMENT: The patient is still confused and still needs redirections. TREATMENT PLAN: Continue to monitor behavior and condition closely. Also, continue working on discharge plans and placement issue. JOB# [id number]
--- NOTE | 2019-03-16 00:29 | Progress Notes ---
DATE: SUBJECTIVE: Chart was reviewed and the patient interviewed. Also discussed the patient's condition with the staff and reviewed records and labs. The patient is still anxious and is still in depressed mood. The patient also is withdrawn. The patient also is guarded. Otherwise, the patient is compliant with taking her medications with no side effects. ASSESSMENT: The patient is still anxious and needs placement. TREATMENT PLAN: Continue to monitor her behavior closely. Also, continue to work on discharge plans and placement issue. [facility]# [id number]
--- NOTE | 2019-03-17 02:03 | Progress Notes ---
DATE: 03/16/[address] Mason. Case was discussed with staff of the patient, reviewed records. This is a well-known case to me and seen her before many times and covering for Dr. Mason. She is sleeping well, eating well. She denies any current intent to harm himself or anyone. She is demented, confused. She tells me today she is going back to her home and much of this is true. No side effects of the medication, no sedation, no nausea. We will continue outpatient group therapy, milieu therapy, and adjust medications as needed. JOB# [id number]
[2019-03-18] MEDS: Multivitamin Tab PO SCH (09:12)
--- NOTE | 2019-03-18 14:37 | Progress Notes ---
DATE: 03/17/2019 SUBJECTIVE: The patient was seen and evaluated. The patient's chart reviewed. Covering for Dr. Mason. Today on prkl-co-acih evaluation, the patient continues to perseverate about the [place] [address] and chief of justice. MENTAL STATUS EXAMINATION: Denies any SI or HI, although continues to be demented and confused. ASSESSMENT AND PLAN: We will continue monitoring and evaluating, as she continues to be disorganized. We will continue with primary psychiatrist's treatment plan and goals, which include Aricept at 10 mg. JOB# [id number]
--- NOTE | 2019-03-19 02:33 | Progress Notes ---
DATE: 03/18/[address] Mason. SUBJECTIVE: Today on kbkn-hv-yavd evaluation, ____ police department and eyewitness ____. On examination, derails in conversation. ASSESSMENT AND PLAN: Dementia with behavior disturbance. We will continue with the current medication regimen to target the patient's ongoing behavior disturbance and continue working with medical billing specialist for a safe disposition once the patient is further psychiatrically stabilized in a semi-structured environment, which she needs because of the severe dementia. JOB# [id number]
[2019-03-19] MEDS: Multivitamin Tab PO SCH (08:47)
--- NOTE | 2019-03-19 23:39 | Progress Notes ---
DATE: 03/19/2019 SUBJECTIVE: Case was discussed with staff of the patient, reviewed records. The patient continues to be confused, unpredictable, impulsive, needing redirection, awaiting placement. She is unable to make safe plan for self-care. No side effects to the medication, no sedation, and no nausea. We will continue to work with the patient in group therapy, milieu therapy, and adjust the medication as needed. [facility]# [id number]
[2019-03-20] MEDS: Multivitamin Tab PO SCH (08:49)
[2019-03-21] MEDS: Multivitamin Tab PO SCH (09:00)
--- NOTE | 2019-03-21 11:40 | Progress Notes ---
DATE: 03/20/2019 SUBJECTIVE: The patient is in the hospital. The patient is delusional, believing that she is responsible for protecting the hospital from serious lawsuit and then she is responsible for putting some people in senior care in [place], still confused, impulsive, unpredictable, not making really much sense, confabulating information and delusional, grandiose, AO to name and place only, does not really know why she is in the hospital or what is going on, mostly withdrawn. She has been in the hospital for quite some time, likely approaching her baseline to a certain extent. IMPRESSION: The patient apparently conserved or at least temporary conserved. We will continue to monitor ongoing concerns given the extent and severity of her ongoing confusional state. [facility]# [id number]
[2019-03-22] MEDS: Multivitamin Tab PO SCH (09:43)
--- NOTE | 2019-03-22 21:24 | Progress Notes ---
DATE: 03/21/2019 SUBJECTIVE: Chart was reviewed and the patient interviewed. Also discussed the patient's condition with the staff and reviewed records and labs. The patient is still in a depressed mood. The patient also is still withdrawn and guarded and interacting minimally with others. The patient also is feeling hopeless, but at the same time she is confused and no major behavioral issues. Otherwise, the patient is compliant with taking her medications with no side effects. ASSESSMENT: The patient is still considered to be gravely disabled. TREATMENT PLAN: Continue monitoring her behavior and her condition. Also, working on placement issue and discharge plans. JOB# [id number]
[2019-03-23] MEDS: Multivitamin Tab PO SCH (09:29)
[2019-03-24] MEDS: Multivitamin Tab PO SCH (08:43)
--- NOTE | 2019-03-24 09:27 | Internal Medicine Prog Note ---
Internal Medicine Subjective - Subjective Patient seen and examined:: with staff, chart reviewed, other (seen for dr oh) Patient is:: awake, verbal, interactive, ambulating, confused Per staff patient has:: no adverse event, no episodes of fall, eating well, tolerating meds Internal Medicine Objective - Results Recent Labs: Laboratory Last Values POC Glucose 188 MG/DL (70 - 105) H 02/02/19 19:27 Triglycerides 162 mg/dL (<150) H 12/31/18 08:04 Cholesterol 234 mg/dL (<200) H 12/31/18 08:04 LDL Cholesterol Direct 155 mg/dL (75-193) 12/31/18 08:04 HDL Cholesterol 62 mg/dL (23-92) 12/31/18 08:04 - Physical Exam Vitals and I&O: Vital Signs Temp 108 F 03/24/19 06:21 Pulse 55 03/24/19 06:21 Resp 19 03/24/19 06:21 BP 108/55 03/24/19 06:21 Pulse Ox 95 03/24/19 06:21 Intake & Output 03/23/19 03/24/19 03/24/19 18:59 06:59 18:59 Intake Total 1000 720 Balance 1000 720 Intake: Oral 1000 720 Other: # Voids 4 3 # Bowel Movements 1 0 Stool Characteristics Soft Active Medications: Current Medications Acetaminophen (Tylenol) 650 mg PO Q4HR PRN PRN Reason: Mild Pain / Temp above 100 Al Hydrox/Mg Hydrox/Simethicone (Maalox) 30 ml PO Q4HR PRN PRN Reason: GI DISTRESS Donepezil HCl (Aricept) 10 mg PO HS GALLO Last Admin: 03/23/19 20:51 Dose: 10 mg Magnesium Hydroxide (Milk Of Magnesia) 30 ml PO HS PRN PRN Reason: Constipation Multivitamins/Vitamin C (Theragran) 1 tab PO DAILY GALLO Stop: 05/17/19 08:59 Last Admin: 03/24/19 08:43 Dose: 1 tab General: thin, appears younger HEENT: NC/AT, PERRLA, EOMI Neck: Supple, No JVD, No thyromegaly Lungs: CTAB Cardiovascular: RRR, Normal S1, Normal S2, with murmur Abdomen: soft, thin, non-distended, positive bowel sound Extremities: excoriation Internal Medicine Assmt/Plan - Assessment Assessment: alzheimers dementa elevated chol djd osteoporosis - Plan Plan: fall precaution nutritional support cont on calcium supplemetn will cont to follow tom rn Nutritional Asmnt/Malnutr-PDOC - Dietary Evaluation Malnutrition Findings (Please click <Entered> for more info): Nutritional Asmnt/Malnutrition Start: 01/04/19 09: 50 Text: Status: Complete Freq: Protocol: Document 01/04/19 14:59 LCJOSEG (Rec: 01/04/19 15:06 LCHENG [email or web address]) Nutritional Asmnt/Malnutrition Patient General Information Nutritional Screening Moderate Risk Diagnosis psychosis Pertinent Medical Hx/Surgical Hx dementia, DJD, osteoporosis Subjective Information pt seen lying in bed, awake and alert, stated food has beed great. Pt is not a big eater. Encourage to eat balanced meals and pt agreed with it. Per EMR, PO intake 75 -100% Current Diet Order/ Nutrition Support regular Pertinent Medications reviewed Pertinent Labs 12/31 reviewed Nutritional Hx/Data Height 1.65 m Height (Calculated Centimeters) 165.1 Current Weight (lbs) 74.843 kg Weight (Calculated Kilograms) 74.8 Weight (Calculated Grams) 36715.7 [place] Body Weight 125 Body Mass Index (BMI) 27.4 Weight Status Overweight GI Symptoms GI Symptoms None Last BM 01/04 x 2 Difficult in: None Skin Integrity/Comment: intact Current %PO Good (75-100%) Estimated Nutritional Goals BEE in Kcals: Using Current wt Calories/Kcals/Kg 23-27 Kcals Calculated 9405-4609 Protein: Using Current wt Protein g/k.8 Protein Calculated 60 Fluid: ml 1725-1998ml (1ml/kcal) Nutritional Problem No current Nutrition Prob Problem N/A Malnutrition Alert Is there a minimum of two criteria No selected? Query Text:Check all the applicable criteria. A minimum of two criteria are recommended for diagnosis of either severe or non-severe malnutrition. Malnutrition Related to Morbid Obesity Malnutrition related to morbid obesity No Intervention/Recommendation Comments 1. Continue with regular diet as ordered. 2. Monitor PO intake, wt, labs and skin integrity 3. F/U as low risk in 7 days Expected Outcomes/Goals Expected Outcomes/Goals 1. PO intake to meet at least 75% of nutritional needs. 2. Wt stability, skin to remain intact, labs to approach WNL.
--- NOTE | 2019-03-25 00:47 | Progress Notes ---
DATE: 03/24/2019 SUBJECTIVE: Case was discussed with staff of the patient, reviewed records. The patient continues to do the same. She is demented, confused, awaiting placement. She is sleeping well, eating well. She is on Aricept 10 mg at bedtime with no side effects, no sedation, and no nausea. We will continue to work with the patient in group therapy, milieu therapy, and adjust the medications as needed. [facility]# [id number]
[2019-03-25] MEDS: Multivitamin Tab PO SCH (09:32)
--- NOTE | 2019-03-25 11:27 | Internal Medicine Prog Note ---
Internal Medicine Subjective - Subjective Patient seen and examined:: with staff, chart reviewed Patient is:: awake, verbal, interactive, ambulating, confused Per staff patient has:: no adverse event, no episodes of fall, eating well, tolerating meds Internal Medicine Objective - Results Recent Labs: Laboratory Last Values POC Glucose 188 MG/DL (70 - 105) H 02/02/19 19:27 Triglycerides 162 mg/dL (<150) H 12/31/18 08:04 Cholesterol 234 mg/dL (<200) H 12/31/18 08:04 LDL Cholesterol Direct 155 mg/dL (75-193) 12/31/18 08:04 HDL Cholesterol 62 mg/dL (23-92) 12/31/18 08:04 - Physical Exam Vitals and I&O: Vital Signs Temp 97.5 F 03/25/19 06:19 Pulse 63 03/25/19 06:19 Resp 18 03/25/19 06:19 BP 109/72 03/25/19 06:19 Pulse Ox 96 03/25/19 06:19 Intake & Output 03/24/19 03/25/19 03/25/19 18:59 06:59 18:59 Intake Total 900 180 Balance 900 180 Intake: Oral 900 180 Other: # Voids 3 # Bowel Movements 1 Stool Characteristics Soft Soft Active Medications: Current Medications Acetaminophen (Tylenol) 650 mg PO Q4HR PRN PRN Reason: Mild Pain / Temp above 100 Al Hydrox/Mg Hydrox/Simethicone (Maalox) 30 ml PO Q4HR PRN PRN Reason: GI DISTRESS Donepezil HCl (Aricept) 10 mg PO HS [facility] Last Admin: 03/24/19 20:39 Dose: 10 mg Magnesium Hydroxide (Milk Of Magnesia) 30 ml PO HS PRN PRN Reason: Constipation Multivitamins/Vitamin C (Theragran) 1 tab PO DAILY GALLO Stop: 05/17/19 08:59 Last Admin: 03/25/19 09:32 Dose: 1 tab General: thin, appears younger HEENT: NC/AT, PERRLA, EOMI Neck: Supple, No JVD, No thyromegaly Lungs: CTAB Cardiovascular: RRR, Normal S1, Normal S2, with murmur Abdomen: soft, thin, non-distended, positive bowel sound Extremities: excoriation Internal Medicine Assmt/Plan - Assessment Assessment: alzheimers dementa elevated chol djd osteoporosis - Plan Plan: fall precaution nutritional support cont on calcium supplemetn will cont to follow tom rn Nutritional Asmnt/Malnutr-PDOC - Dietary Evaluation Malnutrition Findings (Please click <Entered> for more info): Nutritional Asmnt/Malnutrition Start: 01/04/19 09: 50 Text: Status: Complete Freq: Protocol: Document 01/04/19 14:59 TARIK (Rec: 01/04/19 15:06 TARIK [id number]) Nutritional Asmnt/Malnutrition Patient General Information Nutritional Screening Moderate Risk Diagnosis psychosis Pertinent Medical Hx/Surgical Hx dementia, DJD, osteoporosis Subjective Information pt seen lying in bed, awake and alert, stated food has beed great. Pt is not a big eater. Encourage to eat balanced meals and pt agreed with it. Per EMR, PO intake 75 -100% Current Diet Order/ Nutrition Support regular Pertinent Medications reviewed Pertinent Labs 12/31 reviewed Nutritional Hx/Data Height 1.65 m Height (Calculated Centimeters) 165.1 Current Weight (lbs) 74.843 kg Weight (Calculated Kilograms) 74.8 Weight (Calculated Grams) 69540.7 [place] Body Weight 125 Body Mass Index (BMI) 27.4 Weight Status Overweight GI Symptoms GI Symptoms None Last BM 01/04 x 2 Difficult in: None Skin Integrity/Comment: intact Current %PO Good (75-100%) Estimated Nutritional Goals BEE in Kcals: Using Current wt Calories/Kcals/Kg 23-27 Kcals Calculated 0343-9197 Protein: Using Current wt Protein g/k.8 Protein Calculated 60 Fluid: ml 1725-1998ml (1ml/kcal) Nutritional Problem No current Nutrition Prob Problem N/A Malnutrition Alert Is there a minimum of two criteria No selected? Query Text:Check all the applicable criteria. A minimum of two criteria are recommended for diagnosis of either severe or non-severe malnutrition. Malnutrition Related to Morbid Obesity Malnutrition related to morbid obesity No Intervention/Recommendation Comments 1. Continue with regular diet as ordered. 2. Monitor PO intake, wt, labs and skin integrity 3. F/U as low risk in 7 days Expected Outcomes/Goals Expected Outcomes/Goals 1. PO intake to meet at least 75% of nutritional needs. 2. Wt stability, skin to remain intact, labs to approach WNL.
--- NOTE | 2019-03-25 15:06 | Progress Notes ---
DATE: 03/25/2019 Case was discussed with staff of the patient, reviewed records. The patient has been in stable condition, awaiting placement. Sleeping well, eating well. No side effects with the medication, no sedation, and no nausea. We will continue to work with the patient in group therapy, milieu therapy, and adjust the medications as needed. JOB# [id number] MTDD
--- NOTE | 2019-03-26 06:27 | Progress Notes ---
DATE: 03/23/2019 PSYCHIATRIC PROGRESS NOTE DATE OF SERVICE: 03/23/2019 SUBJECTIVE: Chart reviewed and the patient interviewed. Also discussed the patient's condition with the staff and reviewed records and labs. The patient is still in a depressed mood. The patient also is still anxious and withdrawn and interacts minimally with others. She is still confused and has difficulty making decisions. The patient also is still waiting for placement, and at the same time, she still thinks that she can go back to her place. At the same time, the patient is compliant with taking her medications with no side effects of medications. ASSESSMENT: The patient is still considered to be gravely disabled. TREATMENT PLAN: We will continue monitoring the patient's condition closely. Also, continue current medications. Also waiting for placement issue. [facility]# [id number]
[2019-03-26] MEDS: Multivitamin Tab PO SCH (09:02)
--- NOTE | 2019-03-26 13:08 | Internal Medicine Prog Note ---
Internal Medicine Subjective - Subjective Patient seen and examined:: with staff, chart reviewed Patient is:: awake, verbal, interactive, ambulating, confused Per staff patient has:: no adverse event, no episodes of fall, eating well, tolerating meds Internal Medicine Objective - Results Recent Labs: Laboratory Last Values POC Glucose 188 MG/DL (70 - 105) H 02/02/19 19:27 Triglycerides 162 mg/dL (<150) H 12/31/18 08:04 Cholesterol 234 mg/dL (<200) H 12/31/18 08:04 LDL Cholesterol Direct 155 mg/dL (75-193) 12/31/18 08:04 HDL Cholesterol 62 mg/dL (23-92) 12/31/18 08:04 - Physical Exam Vitals and I&O: Vital Signs Temp 98.2 F 03/26/19 06:24 Pulse 71 03/26/19 06:24 Resp 18 03/26/19 06:24 BP 115/70 03/26/19 06:24 Pulse Ox 97 03/26/19 06:24 Intake & Output 03/25/19 03/26/19 03/26/19 18:59 06:59 18:59 Intake Total 420 Balance 420 Intake: Oral 420 Other: # Voids 1 # Bowel Movements 0 Stool Characteristics Soft Active Medications: Current Medications Acetaminophen (Tylenol) 650 mg PO Q4HR PRN PRN Reason: Mild Pain / Temp above 100 Al Hydrox/Mg Hydrox/Simethicone (Maalox) 30 ml PO Q4HR PRN PRN Reason: GI DISTRESS Donepezil HCl (Aricept) 10 mg PO HS G[facility]O Last Admin: 03/25/19 20:45 Dose: 10 mg Magnesium Hydroxide (Milk Of Magnesia) 30 ml PO HS PRN PRN Reason: Constipation Multivitamins/Vitamin C (Theragran) 1 tab PO DAILY GALLO Stop: 05/17/19 08:59 Last Admin: 03/26/19 09:02 Dose: 1 tab General: thin, appears younger HEENT: NC/AT, PERRLA, EOMI Neck: Supple, No JVD, No thyromegaly Lungs: CTAB Cardiovascular: RRR, Normal S1, Normal S2, with murmur Abdomen: soft, thin, non-distended, positive bowel sound Extremities: excoriation Internal Medicine Assmt/Plan - Assessment Assessment: alzheimers dementa elevated chol djd osteoporosis - Plan Plan: fall precaution nutritional support cont on calcium supplemetn will cont to follow dw rn add mvi Nutritional Asmnt/Malnutr-PDOC - Dietary Evaluation Malnutrition Findings (Please click <Entered> for more info): Nutritional Asmnt/Malnutrition Start: 01/04/19 09: 50 Text: Status: Complete Freq: Protocol: Document 01/04/19 14:59 TARIK (Rec: 01/04/19 15:06 LCCOREY [id number]) Nutritional Asmnt/Malnutrition Patient General Information Nutritional Screening Moderate Risk Diagnosis psychosis Pertinent Medical Hx/Surgical Hx dementia, DJD, osteoporosis Subjective Information pt seen lying in bed, awake and alert, stated food has beed great. Pt is not a big eater. Encourage to eat balanced meals and pt agreed with it. Per EMR, PO intake 75 -100% Current Diet Order/ Nutrition Support regular Pertinent Medications reviewed Pertinent Labs 12/31 reviewed Nutritional Hx/Data Height 1.65 m Height (Calculated Centimeters) 165.1 Current Weight (lbs) 74.843 kg Weight (Calculated Kilograms) 74.8 Weight (Calculated Grams) 34808.7 [place] Body Weight 125 Body Mass Index (BMI) 27.4 Weight Status Overweight GI Symptoms GI Symptoms None Last BM 01/04 x 2 Difficult in: None Skin Integrity/Comment: intact Current %PO Good (75-100%) Estimated Nutritional Goals BEE in Kcals: Using Current wt Calories/Kcals/Kg 23-27 Kcals Calculated 4607-3283 Protein: Using Current wt Protein g/k.8 Protein Calculated 60 Fluid: ml 1725-1998ml (1ml/kcal) Nutritional Problem No current Nutrition Prob Problem N/A Malnutrition Alert Is there a minimum of two criteria No selected? Query Text:Check all the applicable criteria. A minimum of two criteria are recommended for diagnosis of either severe or non-severe malnutrition. Malnutrition Related to Morbid Obesity Malnutrition related to morbid obesity No Intervention/Recommendation Comments 1. Continue with regular diet as ordered. 2. Monitor PO intake, wt, labs and skin integrity 3. F/U as low risk in 7 days Expected Outcomes/Goals Expected Outcomes/Goals 1. PO intake to meet at least 75% of nutritional needs. 2. Wt stability, skin to remain intact, labs to approach WNL.
--- NOTE | 2019-03-26 23:12 | Progress Notes ---
DATE: 03/26/2019 SUBJECTIVE: Chart reviewed and the patient interviewed. Also discussed the patient's condition with the staff and reviewed records and labs. The patient is still confused and seems to be in a depressed mood. The patient also is interacting minimally with others. She also is still suspicious and is still paranoid. She at the same time cooperative and compliant with taking her medications and no behavioral issues. ASSESSMENT: The patient is still gravely disabled and waiting for placement. TREATMENT PLAN: Continue monitoring her behavior and her condition closely. Also, continue working on discharge plans and placement issue. JOB# [id number]
[2019-03-27] MEDS: Multivitamin w/ Minerals Tab PO SCH (08:59)
[2019-03-27] MEDS: Multivitamin Tab PO SCH (09:00)
--- NOTE | 2019-03-27 12:15 | Internal Medicine Prog Note ---
Internal Medicine Subjective - Subjective Patient seen and examined:: with staff, chart reviewed Patient is:: awake, verbal, interactive, ambulating, confused Per staff patient has:: no adverse event, no episodes of fall, eating well, tolerating meds Internal Medicine Objective - Results Recent Labs: Laboratory Last Values POC Glucose 188 MG/DL (70 - 105) H 02/02/19 19:27 Triglycerides 162 mg/dL (<150) H 12/31/18 08:04 Cholesterol 234 mg/dL (<200) H 12/31/18 08:04 LDL Cholesterol Direct 155 mg/dL (75-193) 12/31/18 08:04 HDL Cholesterol 62 mg/dL (23-92) 12/31/18 08:04 - Physical Exam Vitals and I&O: Vital Signs Temp 98.4 F 03/27/19 06:28 Pulse 72 03/27/19 06:28 Resp 20 03/27/19 06:28 BP 111/59 03/27/19 06:28 Pulse Ox 95 03/27/19 06:28 Intake & Output 03/26/19 03/27/19 03/27/19 18:59 06:59 18:59 Intake Total 900 240 Balance 900 240 Intake: Oral 900 240 Other: # Voids 3 2 # Bowel Movements 1 0 Stool Characteristics Soft Active Medications: Current Medications Acetaminophen (Tylenol) 650 mg PO Q4HR PRN PRN Reason: Mild Pain / Temp above 100 Al Hydrox/Mg Hydrox/Simethicone (Maalox) 30 ml PO Q4HR PRN PRN Reason: GI DISTRESS Donepezil HCl (Aricept) 10 mg PO HS [facility] Last Admin: 03/26/19 20:37 Dose: 10 mg Magnesium Hydroxide (Milk Of Magnesia) 30 ml PO HS PRN PRN Reason: Constipation General: thin, appears younger HEENT: NC/AT, PERRLA, EOMI Neck: Supple, No JVD, No thyromegaly Lungs: CTAB Cardiovascular: RRR, Normal S1, Normal S2, with murmur Abdomen: soft, thin, non-distended, positive bowel sound Extremities: excoriation Internal Medicine Assmt/Plan - Assessment Assessment: alzheimers dementa elevated chol djd osteoporosis - Plan Plan: fall precaution nutritional support cont on calcium supplemetn will cont to follow dw rn add mvi Nutritional Asmnt/Malnutr-PDOC - Dietary Evaluation Malnutrition Findings (Please click <Entered> for more info): Nutritional Asmnt/Malnutrition Start: 01/04/19 09: 50 Text: Status: Complete Freq: Protocol: Document 01/04/19 14:59 LCJOSEG (Rec: 01/04/19 15:06 ANUELRitika [id number]) Nutritional Asmnt/Malnutrition Patient General Information Nutritional Screening Moderate Risk Diagnosis psychosis Pertinent Medical Hx/Surgical Hx dementia, DJD, osteoporosis Subjective Information pt seen lying in bed, awake and alert, stated food has beed great. Pt is not a big eater. Encourage to eat balanced meals and pt agreed with it. Per EMR, PO intake 75 -100% Current Diet Order/ Nutrition Support regular Pertinent Medications reviewed Pertinent Labs 12/31 reviewed Nutritional Hx/Data Height 1.65 m Height (Calculated Centimeters) 165.1 Current Weight (lbs) 74.843 kg Weight (Calculated Kilograms) 74.8 Weight (Calculated Grams) 68225.7 [place] Body Weight 125 Body Mass Index (BMI) 27.4 Weight Status Overweight GI Symptoms GI Symptoms None Last BM 01/04 x 2 Difficult in: None Skin Integrity/Comment: intact Current %PO Good (75-100%) Estimated Nutritional Goals BEE in Kcals: Using Current wt Calories/Kcals/Kg 23-27 Kcals Calculated 5196-5491 Protein: Using Current wt Protein g/k.8 Protein Calculated 60 Fluid: ml 1725-1998ml (1ml/kcal) Nutritional Problem No current Nutrition Prob Problem N/A Malnutrition Alert Is there a minimum of two criteria No selected? Query Text:Check all the applicable criteria. A minimum of two criteria are recommended for diagnosis of either severe or non-severe malnutrition. Malnutrition Related to Morbid Obesity Malnutrition related to morbid obesity No Intervention/Recommendation Comments 1. Continue with regular diet as ordered. 2. Monitor PO intake, wt, labs and skin integrity 3. F/U as low risk in 7 days Expected Outcomes/Goals Expected Outcomes/Goals 1. PO intake to meet at least 75% of nutritional needs. 2. Wt stability, skin to remain intact, labs to approach WNL.
--- NOTE | 2019-03-27 23:24 | Progress Notes ---
DATE: 03/27/2019 SUBJECTIVE: Chart was reviewed and the patient interviewed. Also discussed the patient's condition with the staff and reviewed records and labs. The patient is still in a depressed mood and anxious and withdrawn. The patient is interacting minimally with others. She is still feeling hopeless with long hospital stay, but at the same time, she is not agitated or aggressive and accepting the fact that she is waiting for placement. She is still unable to make any safe plan for self-care. ASSESSMENT: The patient is still confused and is still not able to understand or comprehend her placement issue or conservatorship issues. TREATMENT PLAN: We will continue monitoring her behavior and her condition closely. Also, continue to work on discharge plans. [facility]# [id number]
[2019-03-28] MEDS: Multivitamin w/ Minerals Tab PO SCH (09:21)
--- NOTE | 2019-03-28 12:35 | Internal Medicine Prog Note ---
Internal Medicine Subjective - Subjective Patient seen and examined:: with staff, chart reviewed Patient is:: awake, verbal, interactive, ambulating, confused Per staff patient has:: no adverse event, no episodes of fall, eating well, tolerating meds Internal Medicine Objective - Results Recent Labs: Laboratory Last Values POC Glucose 188 MG/DL (70 - 105) H 02/02/19 19:27 Triglycerides 162 mg/dL (<150) H 12/31/18 08:04 Cholesterol 234 mg/dL (<200) H 12/31/18 08:04 LDL Cholesterol Direct 155 mg/dL (75-193) 12/31/18 08:04 HDL Cholesterol 62 mg/dL (23-92) 12/31/18 08:04 - Physical Exam Vitals and I&O: Vital Signs Temp 98.3 F 03/28/19 05:47 Pulse 54 03/28/19 05:47 Resp 20 03/28/19 05:47 BP 97/57 03/28/19 05:47 Pulse Ox 96 03/28/19 05:47 Intake & Output 03/27/19 03/28/19 03/28/19 18:59 06:59 18:59 Intake Total 900 180 Balance 900 180 Intake: Oral 900 180 Other: # Voids 3 1 # Bowel Movements 0 0 Stool Characteristics Soft Active Medications: Current Medications Acetaminophen (Tylenol) 650 mg PO Q4HR PRN PRN Reason: Mild Pain / Temp above 100 Al Hydrox/Mg Hydrox/Simethicone (Maalox) 30 ml PO Q4HR PRN PRN Reason: GI DISTRESS Donepezil HCl (Aricept) 10 mg PO HS [facility] Last Admin: 03/27/19 20:17 Dose: 10 mg Magnesium Hydroxide (Milk Of Magnesia) 30 ml PO HS PRN PRN Reason: Constipation General: thin, appears younger HEENT: NC/AT, PERRLA, EOMI Neck: Supple, No JVD, No thyromegaly Lungs: CTAB Cardiovascular: RRR, Normal S1, Normal S2, with murmur Abdomen: soft, thin, non-distended, positive bowel sound Extremities: excoriation Internal Medicine Assmt/Plan - Assessment Assessment: alzheimers dementa elevated chol djd osteoporosis - Plan Plan: fall precaution nutritional support cont on calcium supplemetn will cont to follow dw rn add mvi Nutritional Asmnt/Malnutr-PDOC - Dietary Evaluation Malnutrition Findings (Please click <Entered> for more info): Nutritional Asmnt/Malnutrition Start: 01/04/19 09: 50 Text: Status: Complete Freq: Protocol: Document 01/04/19 14:59 LCJOSEG (Rec: 01/04/19 15:06 ANUELRitika [email or web address]) Nutritional Asmnt/Malnutrition Patient General Information Nutritional Screening Moderate Risk Diagnosis psychosis Pertinent Medical Hx/Surgical Hx dementia, DJD, osteoporosis Subjective Information pt seen lying in bed, awake and alert, stated food has beed great. Pt is not a big eater. Encourage to eat balanced meals and pt agreed with it. Per EMR, PO intake 75 -100% Current Diet Order/ Nutrition Support regular Pertinent Medications reviewed Pertinent Labs 12/31 reviewed Nutritional Hx/Data Height 1.65 m Height (Calculated Centimeters) 165.1 Current Weight (lbs) 74.843 kg Weight (Calculated Kilograms) 74.8 Weight (Calculated Grams) 83047.7 [place] Body Weight 125 Body Mass Index (BMI) 27.4 Weight Status Overweight GI Symptoms GI Symptoms None Last BM 01/04 x 2 Difficult in: None Skin Integrity/Comment: intact Current %PO Good (75-100%) Estimated Nutritional Goals BEE in Kcals: Using Current wt Calories/Kcals/Kg 23-27 Kcals Calculated 6263-1402 Protein: Using Current wt Protein g/k.8 Protein Calculated 60 Fluid: ml 1725-1998ml (1ml/kcal) Nutritional Problem No current Nutrition Prob Problem N/A Malnutrition Alert Is there a minimum of two criteria No selected? Query Text:Check all the applicable criteria. A minimum of two criteria are recommended for diagnosis of either severe or non-severe malnutrition. Malnutrition Related to Morbid Obesity Malnutrition related to morbid obesity No Intervention/Recommendation Comments 1. Continue with regular diet as ordered. 2. Monitor PO intake, wt, labs and skin integrity 3. F/U as low risk in 7 days Expected Outcomes/Goals Expected Outcomes/Goals 1. PO intake to meet at least 75% of nutritional needs. 2. Wt stability, skin to remain intact, labs to approach WNL.
--- NOTE | 2019-03-28 22:31 | Progress Notes ---
DATE: 03/28/2019 SUBJECTIVE: Chart was reviewed and the patient interviewed. Also discussed the patient's condition with the staff and reviewed records and labs. The patient is still restless and anxious. The patient also is still wandering around, and is still slightly confused and needs redirections. The patient also still has difficulty following directions and she is still considered to be gravely disabled with her inability to come up with a safe plan for placement. On the other hand, we will continue to monitor behavior and condition closely and continue to follow up and work on placement issue. JOB# [id number]
[2019-03-29] MEDS: Multivitamin w/ Minerals Tab PO SCH (08:41)
--- NOTE | 2019-03-29 13:05 | Internal Medicine Prog Note ---
Internal Medicine Subjective - Subjective Patient seen and examined:: with staff, chart reviewed Patient is:: awake, verbal, interactive, ambulating, confused Per staff patient has:: no adverse event, no episodes of fall, eating well, tolerating meds Internal Medicine Objective - Results Recent Labs: Laboratory Last Values POC Glucose 188 MG/DL (70 - 105) H 02/02/19 19:27 Triglycerides 162 mg/dL (<150) H 12/31/18 08:04 Cholesterol 234 mg/dL (<200) H 12/31/18 08:04 LDL Cholesterol Direct 155 mg/dL (75-193) 12/31/18 08:04 HDL Cholesterol 62 mg/dL (23-92) 12/31/18 08:04 - Physical Exam Vitals and I&O: Vital Signs Temp 97.9 F 03/29/19 06:22 Pulse 78 03/29/19 06:22 Resp 18 03/29/19 06:22 BP 123/73 03/29/19 06:22 Pulse Ox 96 03/29/19 06:22 Intake & Output 03/28/19 03/29/19 03/29/19 18:59 06:59 18:59 Intake Total 900 260 Balance 900 260 Intake: Oral 900 260 Other: # Voids 3 3 # Bowel Movements 1 0 Stool Characteristics Soft Active Medications: Current Medications Acetaminophen (Tylenol) 650 mg PO Q4HR PRN PRN Reason: Mild Pain / Temp above 100 Al Hydrox/Mg Hydrox/Simethicone (Maalox) 30 ml PO Q4HR PRN PRN Reason: GI DISTRESS Donepezil HCl (Aricept) 10 mg PO HS [facility] Last Admin: 03/28/19 20:37 Dose: 10 mg Magnesium Hydroxide (Milk Of Magnesia) 30 ml PO HS PRN PRN Reason: Constipation General: thin, appears younger HEENT: NC/AT, PERRLA, EOMI Neck: Supple, No JVD, No thyromegaly Lungs: CTAB Cardiovascular: RRR, Normal S1, Normal S2, with murmur Abdomen: soft, thin, non-distended, positive bowel sound Extremities: excoriation Internal Medicine Assmt/Plan - Assessment Assessment: alzheimers dementa elevated chol djd osteoporosis - Plan Plan: fall precaution nutritional support cont on calcium supplemetn will cont to follow dw rn add mvi Nutritional Asmnt/Malnutr-PDOC - Dietary Evaluation Malnutrition Findings (Please click <Entered> for more info): Nutritional Asmnt/Malnutrition Start: 01/04/19 09: 50 Text: Status: Complete Freq: Protocol: Document 01/04/19 14:59 [email or web address] (Rec: 01/04/19 15:06 ANUELRitika [email or web address]) Nutritional Asmnt/Malnutrition Patient General Information Nutritional Screening Moderate Risk Diagnosis psychosis Pertinent Medical Hx/Surgical Hx dementia, DJD, osteoporosis Subjective Information pt seen lying in bed, awake and alert, stated food has beed great. Pt is not a big eater. Encourage to eat balanced meals and pt agreed with it. Per EMR, PO intake 75 -100% Current Diet Order/ Nutrition Support regular Pertinent Medications reviewed Pertinent Labs 12/31 reviewed Nutritional Hx/Data Height 1.65 m Height (Calculated Centimeters) 165.1 Current Weight (lbs) 74.843 kg Weight (Calculated Kilograms) 74.8 Weight (Calculated Grams) 98042.7 [place] Body Weight 125 Body Mass Index (BMI) 27.4 Weight Status Overweight GI Symptoms GI Symptoms None Last BM 01/04 x 2 Difficult in: None Skin Integrity/Comment: intact Current %PO Good (75-100%) Estimated Nutritional Goals BEE in Kcals: Using Current wt Calories/Kcals/Kg 23-27 Kcals Calculated 4764-8253 Protein: Using Current wt Protein g/k.8 Protein Calculated 60 Fluid: ml 1725-1998ml (1ml/kcal) Nutritional Problem No current Nutrition Prob Problem N/A Malnutrition Alert Is there a minimum of two criteria No selected? Query Text:Check all the applicable criteria. A minimum of two criteria are recommended for diagnosis of either severe or non-severe malnutrition. Malnutrition Related to Morbid Obesity Malnutrition related to morbid obesity No Intervention/Recommendation Comments 1. Continue with regular diet as ordered. 2. Monitor PO intake, wt, labs and skin integrity 3. F/U as low risk in 7 days Expected Outcomes/Goals Expected Outcomes/Goals 1. PO intake to meet at least 75% of nutritional needs. 2. Wt stability, skin to remain intact, labs to approach WNL.
[2019-03-30] MEDS: Multivitamin w/ Minerals Tab PO SCH (10:43)
--- NOTE | 2019-03-30 12:44 | Internal Medicine Prog Note ---
Internal Medicine Subjective - Subjective Patient seen and examined:: with staff, chart reviewed Patient is:: awake, verbal, interactive, ambulating, confused Per staff patient has:: no adverse event, no episodes of fall, eating well, tolerating meds Internal Medicine Objective - Results Recent Labs: Laboratory Last Values POC Glucose 188 MG/DL (70 - 105) H 02/02/19 19:27 Triglycerides 162 mg/dL (<150) H 12/31/18 08:04 Cholesterol 234 mg/dL (<200) H 12/31/18 08:04 LDL Cholesterol Direct 155 mg/dL (75-193) 12/31/18 08:04 HDL Cholesterol 62 mg/dL (23-92) 12/31/18 08:04 - Physical Exam Vitals and I&O: Vital Signs Temp 98.4 F 03/30/19 06:22 Pulse 60 03/30/19 06:22 Resp 20 03/30/19 06:22 BP 108/60 03/30/19 06:22 Pulse Ox 97 03/30/19 06:22 Intake & Output 03/29/19 03/30/19 03/30/19 18:59 06:59 18:59 Intake Total 1080 120 Balance 1080 120 Intake: Oral 1080 120 Other: # Voids 4 3 # Bowel Movements 0 Stool Characteristics Soft Active Medications: Current Medications Acetaminophen (Tylenol) 650 mg PO Q4HR PRN PRN Reason: Mild Pain / Temp above 100 Al Hydrox/Mg Hydrox/Simethicone (Maalox) 30 ml PO Q4HR PRN PRN Reason: GI DISTRESS Donepezil HCl (Aricept) 10 mg PO HS [facility] Last Admin: 03/29/19 20:41 Dose: 10 mg Magnesium Hydroxide (Milk Of Magnesia) 30 ml PO HS PRN PRN Reason: Constipation General: thin, appears younger HEENT: NC/AT, PERRLA, EOMI Neck: Supple, No JVD, No thyromegaly Lungs: CTAB Cardiovascular: RRR, Normal S1, Normal S2, with murmur Abdomen: soft, thin, non-distended, positive bowel sound Extremities: excoriation Internal Medicine Assmt/Plan - Assessment Assessment: alzheimers dementa elevated chol djd osteoporosis - Plan Plan: fall precaution nutritional support cont on calcium supplemetn will cont to follow dw rn add mvi Nutritional Asmnt/Malnutr-PDOC - Dietary Evaluation Malnutrition Findings (Please click <Entered> for more info): Nutritional Asmnt/Malnutrition Start: 01/04/19 09: 50 Text: Status: Complete Freq: Protocol: Document 01/04/19 14:59 LCJOSEG (Rec: 01/04/19 15:06 LCCOREY [email or web address]) Nutritional Asmnt/Malnutrition Patient General Information Nutritional Screening Moderate Risk Diagnosis psychosis Pertinent Medical Hx/Surgical Hx dementia, DJD, osteoporosis Subjective Information pt seen lying in bed, awake and alert, stated food has beed great. Pt is not a big eater. Encourage to eat balanced meals and pt agreed with it. Per EMR, PO intake 75 -100% Current Diet Order/ Nutrition Support regular Pertinent Medications reviewed Pertinent Labs 12/31 reviewed Nutritional Hx/Data Height 1.65 m Height (Calculated Centimeters) 165.1 Current Weight (lbs) 74.843 kg Weight (Calculated Kilograms) 74.8 Weight (Calculated Grams) 90278.7 [place] Body Weight 125 Body Mass Index (BMI) 27.4 Weight Status Overweight GI Symptoms GI Symptoms None Last BM 01/04 x 2 Difficult in: None Skin Integrity/Comment: intact Current %PO Good (75-100%) Estimated Nutritional Goals BEE in Kcals: Using Current wt Calories/Kcals/Kg 23-27 Kcals Calculated 1259-4241 Protein: Using Current wt Protein g/k.8 Protein Calculated 60 Fluid: ml 1725-1998ml (1ml/kcal) Nutritional Problem No current Nutrition Prob Problem N/A Malnutrition Alert Is there a minimum of two criteria No selected? Query Text:Check all the applicable criteria. A minimum of two criteria are recommended for diagnosis of either severe or non-severe malnutrition. Malnutrition Related to Morbid Obesity Malnutrition related to morbid obesity No Intervention/Recommendation Comments 1. Continue with regular diet as ordered. 2. Monitor PO intake, wt, labs and skin integrity 3. F/U as low risk in 7 days Expected Outcomes/Goals Expected Outcomes/Goals 1. PO intake to meet at least 75% of nutritional needs. 2. Wt stability, skin to remain intact, labs to approach WNL.
--- NOTE | 2019-03-30 22:07 | Progress Notes ---
DATE: 03/29/2019 SUBJECTIVE: Chart was reviewed and the patient interviewed. Also discussed the patient's condition with the staff and reviewed records and labs. The patient remains in a depressed mood and she is still anxious. The patient also is still wandering about while she was in the hospital for a long time and she has been in the hospital for almost 3 months. finance manager is still not able to give exact information except that waiting for "date." At the same time, the patient continued to comply with taking her medications with no side effects of the medications. ASSESSMENT: The patient is still depressed and is still considered to be gravely disabled. TREATMENT PLAN: Continue to monitor behavior and her condition closely. Also, continue adjusting psychotropic medications and working on placement issue. JOB# [id number]
--- NOTE | 2019-03-30 22:26 | Progress Notes ---
DATE: 03/30/2019 SUBJECTIVE: Chart reviewed and patient interviewed. Also discussed the patient's condition with the staff and reviewed records and labs. The patient is still severely anxious and severely irritable. The patient also is still suspicious, but she is cooperative and calm and compliant with taking her medications. She also confused and needs redirections. Otherwise, patient is denying any intention to harm herself or others and she is compliant with taking her medications. ASSESSMENT: The patient still needs placement and is still considered to be gravely disabled. TREATMENT PLAN: We will continue to monitor her behavior and her condition closely. Also, continue adjusting psychotropic medications and work on behavioral modification. [facility]# [id number]
[2019-03-31] MEDS: Multivitamin w/ Minerals Tab PO SCH (08:35)
--- NOTE | 2019-03-31 12:03 | Internal Medicine Prog Note ---
Internal Medicine Subjective - Subjective Patient seen and examined:: with staff, chart reviewed Patient is:: awake, verbal, interactive, ambulating, confused Per staff patient has:: no adverse event, no episodes of fall, eating well, tolerating meds Internal Medicine Objective - Results Recent Labs: Laboratory Last Values POC Glucose 188 MG/DL (70 - 105) H 02/02/19 19:27 Triglycerides 162 mg/dL (<150) H 12/31/18 08:04 Cholesterol 234 mg/dL (<200) H 12/31/18 08:04 LDL Cholesterol Direct 155 mg/dL (75-193) 12/31/18 08:04 HDL Cholesterol 62 mg/dL (23-92) 12/31/18 08:04 - Physical Exam Vitals and I&O: Vital Signs Temp 98.0 F 03/31/19 06:58 Pulse 78 03/31/19 06:58 Resp 18 03/31/19 06:58 BP 107/55 03/31/19 06:58 Pulse Ox 96 03/31/19 06:58 Intake & Output 03/30/19 03/31/19 03/31/19 18:59 06:59 18:59 Intake Total 1500 120 Balance 1500 120 Intake: Oral 1500 120 Other: # Voids 3 3 # Bowel Movements 0 0 Stool Characteristics Soft Active Medications: Current Medications Acetaminophen (Tylenol) 650 mg PO Q4HR PRN PRN Reason: Mild Pain / Temp above 100 Al Hydrox/Mg Hydrox/Simethicone (Maalox) 30 ml PO Q4HR PRN PRN Reason: GI DISTRESS Donepezil HCl (Aricept) 10 mg PO HS [facility] Last Admin: 03/30/19 20:36 Dose: 10 mg Magnesium Hydroxide (Milk Of Magnesia) 30 ml PO HS PRN PRN Reason: Constipation General: thin, appears younger HEENT: NC/AT, PERRLA, EOMI Neck: Supple, No JVD, No thyromegaly Lungs: CTAB Cardiovascular: RRR, Normal S1, Normal S2, with murmur Abdomen: soft, thin, non-distended, positive bowel sound Extremities: excoriation Internal Medicine Assmt/Plan - Assessment Assessment: alzheimers dementa elevated chol djd osteoporosis - Plan Plan: fall precaution nutritional support cont on calcium supplemetn will cont to follow dw rn add mvi Nutritional Asmnt/Malnutr-PDOC - Dietary Evaluation Malnutrition Findings (Please click <Entered> for more info): Nutritional Asmnt/Malnutrition Start: 01/04/19 09: 50 Text: Status: Complete Freq: Protocol: Document 01/04/19 14:59 LCJOSEG (Rec: 01/04/19 15:06 ANUELRitika [email or web address]) Nutritional Asmnt/Malnutrition Patient General Information Nutritional Screening Moderate Risk Diagnosis psychosis Pertinent Medical Hx/Surgical Hx dementia, DJD, osteoporosis Subjective Information pt seen lying in bed, awake and alert, stated food has beed great. Pt is not a big eater. Encourage to eat balanced meals and pt agreed with it. Per EMR, PO intake 75 -100% Current Diet Order/ Nutrition Support regular Pertinent Medications reviewed Pertinent Labs 12/31 reviewed Nutritional Hx/Data Height 1.65 m Height (Calculated Centimeters) 165.1 Current Weight (lbs) 74.843 kg Weight (Calculated Kilograms) 74.8 Weight (Calculated Grams) 93826.7 [place] Body Weight 125 Body Mass Index (BMI) 27.4 Weight Status Overweight GI Symptoms GI Symptoms None Last BM 01/04 x 2 Difficult in: None Skin Integrity/Comment: intact Current %PO Good (75-100%) Estimated Nutritional Goals BEE in Kcals: Using Current wt Calories/Kcals/Kg 23-27 Kcals Calculated 5875-5564 Protein: Using Current wt Protein g/k.8 Protein Calculated 60 Fluid: ml 1725-1998ml (1ml/kcal) Nutritional Problem No current Nutrition Prob Problem N/A Malnutrition Alert Is there a minimum of two criteria No selected? Query Text:Check all the applicable criteria. A minimum of two criteria are recommended for diagnosis of either severe or non-severe malnutrition. Malnutrition Related to Morbid Obesity Malnutrition related to morbid obesity No Intervention/Recommendation Comments 1. Continue with regular diet as ordered. 2. Monitor PO intake, wt, labs and skin integrity 3. F/U as low risk in 7 days Expected Outcomes/Goals Expected Outcomes/Goals 1. PO intake to meet at least 75% of nutritional needs. 2. Wt stability, skin to remain intact, labs to approach WNL.
--- NOTE | 2019-03-31 23:06 | Progress Notes ---
DATE: 03/31/2019 SUBJECTIVE: Chart was reviewed and the patient interviewed. Also discussed the patient's condition with the staff and reviewed records and labs. The patient is calm and cooperative and she is trying to participate more in the program. She also is less irritable and less agitated, but she is still confused. She is still depressed for a long hospital stay. Otherwise, the patient is compliant with taking medications with no side effects. ASSESSMENT: The patient is stable, but gravely disabled. TREATMENT PLAN: Continue current medications and continue working with high risk case manager in regard to discharge plans and placement issue. JOB# [id number]
[2019-04-01] MEDS: Multivitamin w/ Minerals Tab PO SCH (09:19)
--- NOTE | 2019-04-01 13:22 | Internal Medicine Prog Note ---
Internal Medicine Subjective - Subjective Patient seen and examined:: with staff, chart reviewed Patient is:: awake, verbal, interactive, ambulating, confused Per staff patient has:: no adverse event, no episodes of fall, eating well, tolerating meds Internal Medicine Objective - Results Recent Labs: Laboratory Last Values POC Glucose 188 MG/DL (70 - 105) H 02/02/19 19:27 Triglycerides 162 mg/dL (<150) H 12/31/18 08:04 Cholesterol 234 mg/dL (<200) H 12/31/18 08:04 LDL Cholesterol Direct 155 mg/dL (75-193) 12/31/18 08:04 HDL Cholesterol 62 mg/dL (23-92) 12/31/18 08:04 - Physical Exam Vitals and I&O: Vital Signs Temp 97.5 F 04/01/19 06:16 Pulse 60 04/01/19 06:16 Resp 18 04/01/19 06:16 BP 94/63 04/01/19 06:16 Pulse Ox 94 04/01/19 06:16 Intake & Output 03/31/19 04/01/19 04/01/19 18:59 06:59 18:59 Intake Total 1000 120 Balance 1000 120 Intake: Oral 1000 120 Other: # Voids 3 2 # Bowel Movements 1 0 Active Medications: Current Medications Acetaminophen (Tylenol) 650 mg PO Q4HR PRN PRN Reason: Mild Pain / Temp above 100 Al Hydrox/Mg Hydrox/Simethicone (Maalox) 30 ml PO Q4HR PRN PRN Reason: GI DISTRESS Donepezil HCl (Aricept) 10 mg PO HS [facility] Last Admin: 03/31/19 20:59 Dose: 10 mg Magnesium Hydroxide (Milk Of Magnesia) 30 ml PO HS PRN PRN Reason: Constipation General: thin, appears younger HEENT: NC/AT, PERRLA, EOMI Neck: Supple, No JVD, No thyromegaly Lungs: CTAB Cardiovascular: RRR, Normal S1, Normal S2, with murmur Abdomen: soft, thin, non-distended, positive bowel sound Extremities: excoriation Internal Medicine Assmt/Plan - Assessment Assessment: alzheimers dementa elevated chol djd osteoporosis - Plan Plan: fall precaution nutritional support cont on calcium supplemetn will cont to follow dw rn add mvi Nutritional Asmnt/Malnutr-PDOC - Dietary Evaluation Malnutrition Findings (Please click <Entered> for more info): Nutritional Asmnt/Malnutrition Start: 01/04/19 09: 50 Text: Status: Complete Freq: Protocol: Document 01/04/19 14:59 LCJOSEG (Rec: 01/04/19 15:06 TARIK [email or web address]) Nutritional Asmnt/Malnutrition Patient General Information Nutritional Screening Moderate Risk Diagnosis psychosis Pertinent Medical Hx/Surgical Hx dementia, DJD, osteoporosis Subjective Information pt seen lying in bed, awake and alert, stated food has beed great. Pt is not a big eater. Encourage to eat balanced meals and pt agreed with it. Per EMR, PO intake 75 -100% Current Diet Order/ Nutrition Support regular Pertinent Medications reviewed Pertinent Labs 12/31 reviewed Nutritional Hx/Data Height 1.65 m Height (Calculated Centimeters) 165.1 Current Weight (lbs) 74.843 kg Weight (Calculated Kilograms) 74.8 Weight (Calculated Grams) 06139.7 [place] Body Weight 125 Body Mass Index (BMI) 27.4 Weight Status Overweight GI Symptoms GI Symptoms None Last BM 01/04 x 2 Difficult in: None Skin Integrity/Comment: intact Current %PO Good (75-100%) Estimated Nutritional Goals BEE in Kcals: Using Current wt Calories/Kcals/Kg 23-27 Kcals Calculated 8929-1989 Protein: Using Current wt Protein g/k.8 Protein Calculated 60 Fluid: ml 1725-1998ml (1ml/kcal) Nutritional Problem No current Nutrition Prob Problem N/A Malnutrition Alert Is there a minimum of two criteria No selected? Query Text:Check all the applicable criteria. A minimum of two criteria are recommended for diagnosis of either severe or non-severe malnutrition. Malnutrition Related to Morbid Obesity Malnutrition related to morbid obesity No Intervention/Recommendation Comments 1. Continue with regular diet as ordered. 2. Monitor PO intake, wt, labs and skin integrity 3. F/U as low risk in 7 days Expected Outcomes/Goals Expected Outcomes/Goals 1. PO intake to meet at least 75% of nutritional needs. 2. Wt stability, skin to remain intact, labs to approach WNL.
--- NOTE | 2019-04-01 20:27 | Progress Notes ---
DATE: 04/01/2019 SUBJECTIVE: Chart was reviewed and the patient interviewed and discussed the patient's condition with the staff and reviewed records and labs. The patient is still depressed and anxious. The patient also is confused and still needs redirections. The patient also is unable to come up with a safe plan for self care. Otherwise, the patient is compliant with taking medications. ASSESSMENT: The patient is still considered to be gravely disabled. TREATMENT PLAN: Continue to monitor behavior and condition closely. Also, waiting for placement issue and discharge plans. [facility]# [id number]
[2019-04-02] MEDS: Multivitamin w/ Minerals Tab PO SCH (08:06)
--- NOTE | 2019-04-02 14:00 | Internal Medicine Prog Note ---
Internal Medicine Subjective - Subjective Service Date: 04/02/19 Patient is:: awake, verbal, interactive, ambulating, confused Per staff patient has:: no adverse event, no episodes of fall, eating well, tolerating meds Internal Medicine Objective - Results Recent Labs: Laboratory Last Values POC Glucose 188 MG/DL (70 - 105) H 02/02/19 19:27 Triglycerides 162 mg/dL (<150) H 12/31/18 08:04 Cholesterol 234 mg/dL (<200) H 12/31/18 08:04 LDL Cholesterol Direct 155 mg/dL (75-193) 12/31/18 08:04 HDL Cholesterol 62 mg/dL (23-92) 12/31/18 08:04 - Physical Exam Vitals and I&O: Vital Signs Temp 98.3 F 04/02/19 06:27 Pulse 65 04/02/19 06:27 Resp 19 04/02/19 06:27 BP 100/75 04/02/19 06:27 Pulse Ox 95 04/02/19 06:27 Intake & Output 04/01/19 04/02/19 04/02/19 18:59 06:59 18:59 Intake Total 950 240 Balance 950 240 Intake: Oral 950 240 Other: # Voids 4 2 # Bowel Movements 1 0 Active Medications: Current Medications Acetaminophen (Tylenol) 650 mg PO Q4HR PRN PRN Reason: Mild Pain / Temp above 100 Al Hydrox/Mg Hydrox/Simethicone (Maalox) 30 ml PO Q4HR PRN PRN Reason: GI DISTRESS Donepezil HCl (Aricept) 10 mg PO HS [facility] Last Admin: 04/01/19 20:42 Dose: 10 mg Magnesium Hydroxide (Milk Of Magnesia) 30 ml PO HS PRN PRN Reason: Constipation General: thin, appears younger HEENT: NC/AT, PERRLA, EOMI Neck: Supple, No JVD, No thyromegaly Lungs: CTAB Cardiovascular: RRR, Normal S1, Normal S2, with murmur Abdomen: soft, thin, non-distended, positive bowel sound Extremities: excoriation Internal Medicine Assmt/Plan - Assessment Assessment: alzheimers dementa elevated chol djd osteoporosis - Plan Plan: fall precaution nutritional support cont on calcium supplemetn will cont to follow tom rn Nutritional Asmnt/Malnutr-PDOC - Dietary Evaluation Malnutrition Findings (Please click <Entered> for more info): Nutritional Asmnt/Malnutrition Start: 01/04/19 09: 50 Text: Status: Complete Freq: Protocol: Document 01/04/19 14:59 LCCOREY (Rec: 01/04/19 15:06 MICHICOREY [email or web address]) Nutritional Asmnt/Malnutrition Patient General Information Nutritional Screening Moderate Risk Diagnosis psychosis Pertinent Medical Hx/Surgical Hx dementia, DJD, osteoporosis Subjective Information pt seen lying in bed, awake and alert, stated food has beed great. Pt is not a big eater. Encourage to eat balanced meals and pt agreed with it. Per EMR, PO intake 75 -100% Current Diet Order/ Nutrition Support regular Pertinent Medications reviewed Pertinent Labs 12/31 reviewed Nutritional Hx/Data Height 5 ft 5 in Height (Calculated Centimeters) 165.1 Current Weight (lbs) 165 lb Weight (Calculated Kilograms) 74.8 Weight (Calculated Grams) 94450.7 [place] Body Weight 125 Body Mass Index (BMI) 27.4 Weight Status Overweight GI Symptoms GI Symptoms None Last BM 01/04 x 2 Difficult in: None Skin Integrity/Comment: intact Current %PO Good (75-100%) Estimated Nutritional Goals BEE in Kcals: Using Current wt Calories/Kcals/Kg 23-27 Kcals Calculated 6345-7371 Protein: Using Current wt Protein g/k.8 Protein Calculated 60 Fluid: ml 1725-1998ml (1ml/kcal) Nutritional Problem No current Nutrition Prob Problem N/A Malnutrition Alert Is there a minimum of two criteria No selected? Query Text:Check all the applicable criteria. A minimum of two criteria are recommended for diagnosis of either severe or non-severe malnutrition. Malnutrition Related to Morbid Obesity Malnutrition related to morbid obesity No Intervention/Recommendation Comments 1. Continue with regular diet as ordered. 2. Monitor PO intake, wt, labs and skin integrity 3. F/U as low risk in 7 days Expected Outcomes/Goals Expected Outcomes/Goals 1. PO intake to meet at least 75% of nutritional needs. 2. Wt stability, skin to remain intact, labs to approach WNL.
[2019-04-03] MEDS: Multivitamin w/ Minerals Tab PO SCH ×2 (08:30→09:26)
--- NOTE | 2019-04-03 10:31 | Internal Medicine Prog Note ---
Internal Medicine Subjective - Subjective Service Date: 04/03/19 Patient is:: awake, verbal, interactive, ambulating, confused Per staff patient has:: no adverse event, no episodes of fall, eating well, tolerating meds Internal Medicine Objective - Results Recent Labs: Laboratory Last Values POC Glucose 188 MG/DL (70 - 105) H 02/02/19 19:27 Triglycerides 162 mg/dL (<150) H 12/31/18 08:04 Cholesterol 234 mg/dL (<200) H 12/31/18 08:04 LDL Cholesterol Direct 155 mg/dL (75-193) 12/31/18 08:04 HDL Cholesterol 62 mg/dL (23-92) 12/31/18 08:04 - Physical Exam Vitals and I&O: Vital Signs Temp 97.7 F 04/03/19 05:44 Pulse 57 04/03/19 05:44 Resp 19 04/03/19 05:44 BP 114/68 04/03/19 05:44 Pulse Ox 97 04/03/19 05:44 Intake & Output 04/02/19 04/03/19 04/03/19 18:59 06:59 18:59 Intake Total 1000 0 Balance 1000 0 Intake: Oral 1000 0 Other: # Voids 4 2 # Bowel Movements 1 0 Active Medications: Current Medications Acetaminophen (Tylenol) 650 mg PO Q4HR PRN PRN Reason: Mild Pain / Temp above 100 Al Hydrox/Mg Hydrox/Simethicone (Maalox) 30 ml PO Q4HR PRN PRN Reason: GI DISTRESS Donepezil HCl (Aricept) 10 mg PO HS [facility] Last Admin: 04/02/19 20:33 Dose: 10 mg Magnesium Hydroxide (Milk Of Magnesia) 30 ml PO HS PRN PRN Reason: Constipation General: thin, appears younger HEENT: NC/AT, PERRLA, EOMI Neck: Supple, No JVD, No thyromegaly Lungs: CTAB Cardiovascular: RRR, Normal S1, Normal S2, with murmur Abdomen: soft, thin, non-distended, positive bowel sound Extremities: excoriation Internal Medicine Assmt/Plan - Assessment Assessment: alzheimers dementa elevated chol djd osteoporosis - Plan Plan: fall precaution nutritional support cont on calcium supplemetn will cont to follow tom rn Nutritional Asmnt/Malnutr-PDOC - Dietary Evaluation Malnutrition Findings (Please click <Entered> for more info): Nutritional Asmnt/Malnutrition Start: 01/04/19 09: 50 Text: Status: Complete Freq: Protocol: Document 01/04/19 14:59 LCCOREY (Rec: 01/04/19 15:06 MICHICOREY [id number]) Nutritional Asmnt/Malnutrition Patient General Information Nutritional Screening Moderate Risk Diagnosis psychosis Pertinent Medical Hx/Surgical Hx dementia, DJD, osteoporosis Subjective Information pt seen lying in bed, awake and alert, stated food has beed great. Pt is not a big eater. Encourage to eat balanced meals and pt agreed with it. Per EMR, PO intake 75 -100% Current Diet Order/ Nutrition Support regular Pertinent Medications reviewed Pertinent Labs 12/31 reviewed Nutritional Hx/Data Height 5 ft 5 in Height (Calculated Centimeters) 165.1 Current Weight (lbs) 165 lb Weight (Calculated Kilograms) 74.8 Weight (Calculated Grams) 96236.7 [place] Body Weight 125 Body Mass Index (BMI) 27.4 Weight Status Overweight GI Symptoms GI Symptoms None Last BM 01/04 x 2 Difficult in: None Skin Integrity/Comment: intact Current %PO Good (75-100%) Estimated Nutritional Goals BEE in Kcals: Using Current wt Calories/Kcals/Kg 23-27 Kcals Calculated 6331-8972 Protein: Using Current wt Protein g/k.8 Protein Calculated 60 Fluid: ml 1725-1998ml (1ml/kcal) Nutritional Problem No current Nutrition Prob Problem N/A Malnutrition Alert Is there a minimum of two criteria No selected? Query Text:Check all the applicable criteria. A minimum of two criteria are recommended for diagnosis of either severe or non-severe malnutrition. Malnutrition Related to Morbid Obesity Malnutrition related to morbid obesity No Intervention/Recommendation Comments 1. Continue with regular diet as ordered. 2. Monitor PO intake, wt, labs and skin integrity 3. F/U as low risk in 7 days Expected Outcomes/Goals Expected Outcomes/Goals 1. PO intake to meet at least 75% of nutritional needs. 2. Wt stability, skin to remain intact, labs to approach WNL.
--- NOTE | 2019-04-03 20:54 | Progress Notes ---
DATE: 04/02/2019 PSYCHIATRIC PROGRESS NOTE SUBJECTIVE: Chart was reviewed and the patient interviewed. Also discussed the patient's condition with the staff and reviewed records and labs. The patient is calm, but depressed. The patient also is guarded and is withdrawn. She is cooperative with her treatment. The patient also is still waiting for placement issue eagerly, but no major behavioral problems. ASSESSMENT: The patient is still depressed and considered to be gravely disabled and waiting for placement. TREATMENT PLAN: Continue to monitor behavior and condition closely. Also, continue adjusting psychotropic medications and working on her discharge plans and placement issue. JOB# [id number]
[2019-04-04] MEDS: Multivitamin w/ Minerals Tab PO SCH (08:18)
--- NOTE | 2019-04-04 22:14 | Progress Notes ---
DATE: PSYCHIATRIC PROGRESS NOTE SUBJECTIVE: Chart was reviewed and the patient interviewed. Also discussed the patient's condition with the staff and reviewed records and labs. The patient remains calm and cooperative and is still in a depressed mood. The patient also is interacting minimally with others. Easier to follow directions. The patient is compliant with taking Aricept and Namenda with no side effects. ASSESSMENT: The patient is still considered to be gravely disabled. TREATMENT PLAN: I will fill a form today for conservatorship petition for the court that was given or left in the chart by the manager case management. At the same time, we will continue working on discharge plans and on placement issue. JOB# [id number]
--- NOTE | 2019-04-05 04:17 | Progress Notes ---
DATE: 04/03/2019 SUBJECTIVE: Chart was reviewed and the patient interviewed. Also discussed the patient's condition with the staff and reviewed records and labs. The patient remains in a depressed mood. The patient also is still anxious and is still in irritable mood and easily agitated. The patient also is interacting more with peers and with others, but in a confused way. Otherwise, the patient is cooperative with treatment. ASSESSMENT: The patient is still depressed and waiting for placement. TREATMENT PLAN: Continue monitoring her behavior and her condition and continue working on discharge plans and placement issue. Up until now, no updates from housing case manager on the situation with the placement. JOB# [id number]
[2019-04-05] MEDS: Multivitamin w/ Minerals Tab PO SCH (08:14)
--- NOTE | 2019-04-05 22:56 | Progress Notes ---
DATE: 04/05/2019 PSYCHIATRIC PROGRESS NOTE SUBJECTIVE: Chart was reviewed and the patient interviewed. Also discussed the patient's condition with the staff and reviewed the records and labs. The patient is calmer and less agitated. The patient also is less irritable and is easier to redirect her. The patient is compliant with her medications and with treatment plans. Otherwise, the patient is waiting for placement and cooperative in regard to placement. She is still unable to make any decisions for self-care and conservatorship is pending. ASSESSMENT: The patient is still considered to be gravely disabled. TREATMENT PLAN: Continue to monitor behavior and condition closely. Also, continue working on placement issue and discharge plans. JOB# [id number]
[2019-04-06] MEDS: Multivitamin w/ Minerals Tab PO SCH (08:31)
[2019-04-07] MEDS: Multivitamin w/ Minerals Tab PO SCH (08:40)
--- NOTE | 2019-04-07 09:02 | Progress Notes ---
DATE: 04/06/2019 SUBJECTIVE: Chart was reviewed and the patient interviewed. Also discussed the patient's condition with the staff and reviewed records and labs. The patient is calm and cooperative with her treatment. The patient still seems to be more depressed. She also is still awaiting for placement and again field nurse case manager is saying that "the date is coming, but not sure when." At the same time, the patient is compliant with her treatment and going to groups. No behavioral problems. [facility]# [id number]
--- NOTE | 2019-04-07 21:22 | Progress Notes ---
DATE: 04/07/2019 PSYCHIATRIC PROGRESS NOTE SUBJECTIVE: Chart was reviewed and the patient interviewed. Also discussed the patient's condition with the staff and reviewed records and labs. The patient is still depressed. The patient also is still anxious. She also is preoccupied. The patient also is still waiting for placement. She denies any suicidal or homicidal ideations. She also denies any side effects of medications. ASSESSMENT: The patient is still depressed mood, but also considered to be gravely disabled and unable to give any safe plan for such care. TREATMENT PLAN: Continue to monitor behavior and condition closely. Also, continue working on his conservatorship and discharge plans and placement issue. JOB# [id number]
[2019-04-08] MEDS: Multivitamin w/ Minerals Tab PO SCH (08:23)
--- NOTE | 2019-04-08 09:31 | Progress Notes ---
DATE: SUBJECTIVE: Chart was reviewed and the patient interviewed. Also discussed the patient's condition with the staff and reviewed records and labs. The patient is still confused and forgetful. She also is still isolative and withdrawn and interacting minimally with others. The patient also denies any intention to harm herself or others. She also is still going to groups and is still trying to follow directions, but at the same time, seems to be depressed. ASSESSMENT: The patient is still considered to be gravely disabled and needs close monitoring. TREATMENT PLAN: Continue to monitor behavior and condition closely. Also, continue adjusting psychotropic medications and work on behavioral modification and placement issue. JOB# [id number]
[2019-04-09] MEDS: Multivitamin w/ Minerals Tab PO SCH (08:16)
--- NOTE | 2019-04-09 11:32 | Internal Medicine Prog Note ---
Internal Medicine Subjective - Subjective Patient seen and examined:: with staff, chart reviewed, other (pleasant) Patient is:: awake, verbal, interactive, ambulating, confused Per staff patient has:: no adverse event, no episodes of fall, eating well, tolerating meds Internal Medicine Objective - Results Recent Labs: Laboratory Last Values POC Glucose 188 MG/DL (70 - 105) H 02/02/19 19:27 Triglycerides 162 mg/dL (<150) H 12/31/18 08:04 Cholesterol 234 mg/dL (<200) H 12/31/18 08:04 LDL Cholesterol Direct 155 mg/dL (75-193) 12/31/18 08:04 HDL Cholesterol 62 mg/dL (23-92) 12/31/18 08:04 - Physical Exam Vitals and I&O: Vital Signs Temp 97.1 F 04/09/19 06:27 Pulse 77 04/09/19 06:27 Resp 19 04/09/19 06:27 BP 122/74 04/09/19 06:27 Pulse Ox 98 04/09/19 06:27 Intake & Output 04/08/19 04/09/19 04/09/19 18:59 06:59 18:59 Intake Total 900 120 Balance 900 120 Intake: Oral 900 120 Other: # Voids 3 3 # Bowel Movements 1 Active Medications: Current Medications Acetaminophen (Tylenol) 650 mg PO Q4HR PRN PRN Reason: Mild Pain / Temp above 100 Al Hydrox/Mg Hydrox/Simethicone (Maalox) 30 ml PO Q4HR PRN PRN Reason: GI DISTRESS Donepezil HCl (Aricept) 10 mg PO HS [facility] Last Admin: 04/08/19 21:18 Dose: 10 mg Magnesium Hydroxide (Milk Of Magnesia) 30 ml PO HS PRN PRN Reason: Constipation General: thin, appears younger HEENT: NC/AT, PERRLA, EOMI Neck: Supple, No JVD, No thyromegaly Lungs: CTAB Cardiovascular: RRR, Normal S1, Normal S2, with murmur Abdomen: soft, thin, non-distended, positive bowel sound Extremities: excoriation Internal Medicine Assmt/Plan - Assessment Assessment: alzheimers dementa elevated chol djd osteoporosis - Plan Plan: fall precaution nutritional support cont on calcium supplemetn will cont to follow dw rn add mvi Nutritional Asmnt/Malnutr-PDOC - Dietary Evaluation Malnutrition Findings (Please click <Entered> for more info): Nutritional Asmnt/Malnutrition Start: 01/04/19 09: 50 Text: Status: Complete Freq: Protocol: Document 01/04/19 14:59 LCHENG (Rec: 01/04/19 15:06 LCJOSEG [id number]) Nutritional Asmnt/Malnutrition Patient General Information Nutritional Screening Moderate Risk Diagnosis psychosis Pertinent Medical Hx/Surgical Hx dementia, DJD, osteoporosis Subjective Information pt seen lying in bed, awake and alert, stated food has beed great. Pt is not a big eater. Encourage to eat balanced meals and pt agreed with it. Per EMR, PO intake 75 -100% Current Diet Order/ Nutrition Support regular Pertinent Medications reviewed Pertinent Labs 12/31 reviewed Nutritional Hx/Data Height 1.65 m Height (Calculated Centimeters) 165.1 Current Weight (lbs) 74.843 kg Weight (Calculated Kilograms) 74.8 Weight (Calculated Grams) 53532.7 [place] Body Weight 125 Body Mass Index (BMI) 27.4 Weight Status Overweight GI Symptoms GI Symptoms None Last BM 01/04 x 2 Difficult in: None Skin Integrity/Comment: intact Current %PO Good (75-100%) Estimated Nutritional Goals BEE in Kcals: Using Current wt Calories/Kcals/Kg 23-27 Kcals Calculated 5205-5374 Protein: Using Current wt Protein g/k.8 Protein Calculated 60 Fluid: ml 1725-1998ml (1ml/kcal) Nutritional Problem No current Nutrition Prob Problem N/A Malnutrition Alert Is there a minimum of two criteria No selected? Query Text:Check all the applicable criteria. A minimum of two criteria are recommended for diagnosis of either severe or non-severe malnutrition. Malnutrition Related to Morbid Obesity Malnutrition related to morbid obesity No Intervention/Recommendation Comments 1. Continue with regular diet as ordered. 2. Monitor PO intake, wt, labs and skin integrity 3. F/U as low risk in 7 days Expected Outcomes/Goals Expected Outcomes/Goals 1. PO intake to meet at least 75% of nutritional needs. 2. Wt stability, skin to remain intact, labs to approach WNL.
--- NOTE | 2019-04-09 13:55 | Progress Notes ---
DATE: 04/09/2019 PSYCHIATRIC PROGRESS NOTE SUBJECTIVE: Chart reviewed and the patient interviewed. Also discussed the patient's condition with the staff and reviewed records and labs. The patient is still anxious and is still depressed. The patient also is still withdrawn. The patient also is interacting minimally with others. The patient also feels hopeless and helpless, but at the same time, she is not exhibiting any behavior problems and she is compliant with taking her medications. ASSESSMENT: The patient is still gravely disabled and needs placement. TREATMENT PLAN: Continue current medications and continue working on her behavior modification and placement issue and her ineffective coping. [facility]# [id number]
--- NOTE | 2019-04-10 12:11 | Internal Medicine Prog Note ---
Internal Medicine Subjective - Subjective Patient seen and examined:: with staff, chart reviewed Patient is:: awake, verbal, interactive, ambulating, confused Per staff patient has:: no adverse event, no episodes of fall, eating well, tolerating meds Internal Medicine Objective - Results Recent Labs: Laboratory Last Values POC Glucose 188 MG/DL (70 - 105) H 02/02/19 19:27 Triglycerides 162 mg/dL (<150) H 12/31/18 08:04 Cholesterol 234 mg/dL (<200) H 12/31/18 08:04 LDL Cholesterol Direct 155 mg/dL (75-193) 12/31/18 08:04 HDL Cholesterol 62 mg/dL (23-92) 12/31/18 08:04 - Physical Exam Vitals and I&O: Vital Signs Temp 97.6 F 04/10/19 06:24 Pulse 60 04/10/19 06:24 Resp 20 04/10/19 06:24 BP 128/72 04/10/19 06:24 Pulse Ox 96 04/10/19 06:24 Intake & Output 04/09/19 04/10/19 04/10/19 18:59 06:59 18:59 Intake Total 950 240 Balance 950 240 Intake: Oral 950 240 Other: # Voids 4 3 # Bowel Movements 1 0 Active Medications: Current Medications Acetaminophen (Tylenol) 650 mg PO Q4HR PRN PRN Reason: Mild Pain / Temp above 100 Al Hydrox/Mg Hydrox/Simethicone (Maalox) 30 ml PO Q4HR PRN PRN Reason: GI DISTRESS Donepezil HCl (Aricept) 10 mg PO HS [facility] Last Admin: 04/09/19 21:27 Dose: 10 mg Magnesium Hydroxide (Milk Of Magnesia) 30 ml PO HS PRN PRN Reason: Constipation General: thin, appears younger HEENT: NC/AT, PERRLA, EOMI Neck: Supple, No JVD, No thyromegaly Lungs: CTAB Cardiovascular: RRR, Normal S1, Normal S2, with murmur Abdomen: soft, thin, non-distended, positive bowel sound Extremities: excoriation Internal Medicine Assmt/Plan - Assessment Assessment: alzheimers dementa elevated chol djd osteoporosis - Plan Plan: fall precaution nutritional support cont on calcium supplemetn will cont to follow dw rn add mvi Nutritional Asmnt/Malnutr-PDOC - Dietary Evaluation Malnutrition Findings (Please click <Entered> for more info): Nutritional Asmnt/Malnutrition Start: 01/04/19 09: 50 Text: Status: Complete Freq: Protocol: Document 01/04/19 14:59 LCJOSEG (Rec: 01/04/19 15:06 TARIK [id number]) Nutritional Asmnt/Malnutrition Patient General Information Nutritional Screening Moderate Risk Diagnosis psychosis Pertinent Medical Hx/Surgical Hx dementia, DJD, osteoporosis Subjective Information pt seen lying in bed, awake and alert, stated food has beed great. Pt is not a big eater. Encourage to eat balanced meals and pt agreed with it. Per EMR, PO intake 75 -100% Current Diet Order/ Nutrition Support regular Pertinent Medications reviewed Pertinent Labs 12/31 reviewed Nutritional Hx/Data Height 1.65 m Height (Calculated Centimeters) 165.1 Current Weight (lbs) 74.843 kg Weight (Calculated Kilograms) 74.8 Weight (Calculated Grams) 43191.7 [place] Body Weight 125 Body Mass Index (BMI) 27.4 Weight Status Overweight GI Symptoms GI Symptoms None Last BM 01/04 x 2 Difficult in: None Skin Integrity/Comment: intact Current %PO Good (75-100%) Estimated Nutritional Goals BEE in Kcals: Using Current wt Calories/Kcals/Kg 23-27 Kcals Calculated 1562-2682 Protein: Using Current wt Protein g/k.8 Protein Calculated 60 Fluid: ml 1725-1998ml (1ml/kcal) Nutritional Problem No current Nutrition Prob Problem N/A Malnutrition Alert Is there a minimum of two criteria No selected? Query Text:Check all the applicable criteria. A minimum of two criteria are recommended for diagnosis of either severe or non-severe malnutrition. Malnutrition Related to Morbid Obesity Malnutrition related to morbid obesity No Intervention/Recommendation Comments 1. Continue with regular diet as ordered. 2. Monitor PO intake, wt, labs and skin integrity 3. F/U as low risk in 7 days Expected Outcomes/Goals Expected Outcomes/Goals 1. PO intake to meet at least 75% of nutritional needs. 2. Wt stability, skin to remain intact, labs to approach WNL.
--- NOTE | 2019-04-10 20:19 | Progress Notes ---
DATE: 04/10/2019 Case was discussed with staff of the patient, reviewed records. This is a well-known case to me and seen her many times and covering for Dr. Mason. The patient is awaiting placement. Sleeping well, eating well. No suicidal ideation, no homicidal ideation, no paranoia. We will continue outpatient group therapy, milieu therapy, adjust the medication as needed. She is only on Aricept 10 mg at bedtime. [facility]# [id number]
[2019-04-11] MEDS: Multivitamin w/ Minerals Tab PO SCH (08:47)
--- NOTE | 2019-04-11 14:39 | Internal Medicine Prog Note ---
Internal Medicine Subjective - Subjective Patient seen and examined:: with staff, chart reviewed Patient is:: awake, verbal, interactive, ambulating, confused Per staff patient has:: no adverse event, no episodes of fall, eating well, tolerating meds Internal Medicine Objective - Results Recent Labs: Laboratory Last Values POC Glucose 188 MG/DL (70 - 105) H 02/02/19 19:27 Triglycerides 162 mg/dL (<150) H 12/31/18 08:04 Cholesterol 234 mg/dL (<200) H 12/31/18 08:04 LDL Cholesterol Direct 155 mg/dL (75-193) 12/31/18 08:04 HDL Cholesterol 62 mg/dL (23-92) 12/31/18 08:04 - Physical Exam Vitals and I&O: Vital Signs Temp 97.9 F 04/11/19 14:19 Pulse 86 04/11/19 14:19 Resp 20 04/11/19 14:19 BP 106/70 04/11/19 14:19 Pulse Ox 94 04/11/19 14:19 Intake & Output 04/10/19 04/11/19 04/11/19 18:59 06:59 18:59 Intake Total 900 120 Balance 900 120 Intake: Oral 900 120 Other: # Voids 3 3 # Bowel Movements 1 0 Active Medications: Current Medications Acetaminophen (Tylenol) 650 mg PO Q4HR PRN PRN Reason: Mild Pain / Temp above 100 Al Hydrox/Mg Hydrox/Simethicone (Maalox) 30 ml PO Q4HR PRN PRN Reason: GI DISTRESS Donepezil HCl (Aricept) 10 mg PO HS [facility] Last Admin: 04/10/19 20:23 Dose: 10 mg Magnesium Hydroxide (Milk Of Magnesia) 30 ml PO HS PRN PRN Reason: Constipation General: thin, appears younger HEENT: NC/AT, PERRLA, EOMI Neck: Supple, No JVD, No thyromegaly Lungs: CTAB Cardiovascular: RRR, Normal S1, Normal S2, with murmur Abdomen: soft, thin, non-distended, positive bowel sound Extremities: excoriation Internal Medicine Assmt/Plan - Assessment Assessment: alzheimers dementa elevated chol djd osteoporosis - Plan Plan: fall precaution nutritional support cont on calcium supplemetn will cont to follow dw rn add mvi Nutritional Asmnt/Malnutr-PDOC - Dietary Evaluation Malnutrition Findings (Please click <Entered> for more info): Nutritional Asmnt/Malnutrition Start: 01/04/19 09: 50 Text: Status: Complete Freq: Protocol: Document 01/04/19 14:59 LCJOSEG (Rec: 01/04/19 15:06 TARIK [id number]) Nutritional Asmnt/Malnutrition Patient General Information Nutritional Screening Moderate Risk Diagnosis psychosis Pertinent Medical Hx/Surgical Hx dementia, DJD, osteoporosis Subjective Information pt seen lying in bed, awake and alert, stated food has beed great. Pt is not a big eater. Encourage to eat balanced meals and pt agreed with it. Per EMR, PO intake 75 -100% Current Diet Order/ Nutrition Support regular Pertinent Medications reviewed Pertinent Labs 12/31 reviewed Nutritional Hx/Data Height 1.65 m Height (Calculated Centimeters) 165.1 Current Weight (lbs) 74.843 kg Weight (Calculated Kilograms) 74.8 Weight (Calculated Grams) 21240.7 [place] Body Weight 125 Body Mass Index (BMI) 27.4 Weight Status Overweight GI Symptoms GI Symptoms None Last BM 01/04 x 2 Difficult in: None Skin Integrity/Comment: intact Current %PO Good (75-100%) Estimated Nutritional Goals BEE in Kcals: Using Current wt Calories/Kcals/Kg 23-27 Kcals Calculated 8345-8910 Protein: Using Current wt Protein g/k.8 Protein Calculated 60 Fluid: ml 1725-1998ml (1ml/kcal) Nutritional Problem No current Nutrition Prob Problem N/A Malnutrition Alert Is there a minimum of two criteria No selected? Query Text:Check all the applicable criteria. A minimum of two criteria are recommended for diagnosis of either severe or non-severe malnutrition. Malnutrition Related to Morbid Obesity Malnutrition related to morbid obesity No Intervention/Recommendation Comments 1. Continue with regular diet as ordered. 2. Monitor PO intake, wt, labs and skin integrity 3. F/U as low risk in 7 days Expected Outcomes/Goals Expected Outcomes/Goals 1. PO intake to meet at least 75% of nutritional needs. 2. Wt stability, skin to remain intact, labs to approach WNL.
--- NOTE | 2019-04-12 11:54 | Internal Medicine Prog Note ---
Internal Medicine Subjective - Subjective Patient seen and examined:: with staff, chart reviewed Patient is:: awake, verbal, interactive, ambulating, confused Per staff patient has:: no adverse event, no episodes of fall, eating well, tolerating meds Internal Medicine Objective - Results Recent Labs: Laboratory Last Values POC Glucose 188 MG/DL (70 - 105) H 02/02/19 19:27 Triglycerides 162 mg/dL (<150) H 12/31/18 08:04 Cholesterol 234 mg/dL (<200) H 12/31/18 08:04 LDL Cholesterol Direct 155 mg/dL (75-193) 12/31/18 08:04 HDL Cholesterol 62 mg/dL (23-92) 12/31/18 08:04 - Physical Exam Vitals and I&O: Vital Signs Temp 98.4 F 04/12/19 06:33 Pulse 63 04/12/19 06:33 Resp 19 04/12/19 06:33 BP 105/61 04/12/19 06:33 Pulse Ox 97 04/12/19 06:33 Intake & Output 04/11/19 04/12/19 04/12/19 18:59 06:59 18:59 Intake Total 120 Balance 120 Intake: Oral 120 Other: # Voids 2 1 # Bowel Movements 1 1 Active Medications: Current Medications Acetaminophen (Tylenol) 650 mg PO Q4HR PRN PRN Reason: Mild Pain / Temp above 100 Al Hydrox/Mg Hydrox/Simethicone (Maalox) 30 ml PO Q4HR PRN PRN Reason: GI DISTRESS Donepezil HCl (Aricept) 10 mg PO HS [facility] Last Admin: 04/11/19 20:33 Dose: 10 mg Magnesium Hydroxide (Milk Of Magnesia) 30 ml PO HS PRN PRN Reason: Constipation General: thin, appears younger HEENT: NC/AT, PERRLA, EOMI Neck: Supple, No JVD, No thyromegaly Lungs: CTAB Cardiovascular: RRR, Normal S1, Normal S2, with murmur Abdomen: soft, thin, non-distended, positive bowel sound Extremities: excoriation Internal Medicine Assmt/Plan - Assessment Assessment: alzheimers dementa elevated chol djd osteoporosis - Plan Plan: fall precaution nutritional support cont on calcium supplemetn will cont to follow dw rn add mvi Nutritional Asmnt/Malnutr-PDOC - Dietary Evaluation Malnutrition Findings (Please click <Entered> for more info): Nutritional Asmnt/Malnutrition Start: 01/04/19 09: 50 Text: Status: Complete Freq: Protocol: Document 01/04/19 14:59 MICHICOREY (Rec: 01/04/19 15:06 ANUELRitika [email or web address]) Nutritional Asmnt/Malnutrition Patient General Information Nutritional Screening Moderate Risk Diagnosis psychosis Pertinent Medical Hx/Surgical Hx dementia, DJD, osteoporosis Subjective Information pt seen lying in bed, awake and alert, stated food has beed great. Pt is not a big eater. Encourage to eat balanced meals and pt agreed with it. Per EMR, PO intake 75 -100% Current Diet Order/ Nutrition Support regular Pertinent Medications reviewed Pertinent Labs 12/31 reviewed Nutritional Hx/Data Height 1.65 m Height (Calculated Centimeters) 165.1 Current Weight (lbs) 74.843 kg Weight (Calculated Kilograms) 74.8 Weight (Calculated Grams) 37772.7 [place] Body Weight 125 Body Mass Index (BMI) 27.4 Weight Status Overweight GI Symptoms GI Symptoms None Last BM 01/04 x 2 Difficult in: None Skin Integrity/Comment: intact Current %PO Good (75-100%) Estimated Nutritional Goals BEE in Kcals: Using Current wt Calories/Kcals/Kg 23-27 Kcals Calculated 4303-6969 Protein: Using Current wt Protein g/k.8 Protein Calculated 60 Fluid: ml 1725-1998ml (1ml/kcal) Nutritional Problem No current Nutrition Prob Problem N/A Malnutrition Alert Is there a minimum of two criteria No selected? Query Text:Check all the applicable criteria. A minimum of two criteria are recommended for diagnosis of either severe or non-severe malnutrition. Malnutrition Related to Morbid Obesity Malnutrition related to morbid obesity No Intervention/Recommendation Comments 1. Continue with regular diet as ordered. 2. Monitor PO intake, wt, labs and skin integrity 3. F/U as low risk in 7 days Expected Outcomes/Goals Expected Outcomes/Goals 1. PO intake to meet at least 75% of nutritional needs. 2. Wt stability, skin to remain intact, labs to approach WNL.
--- NOTE | 2019-04-12 19:22 | Progress Notes ---
DATE: SUBJECTIVE: Chart was reviewed and the patient interviewed. Also discussed the patient's condition with the staff and reviewed records and labs. The patient is still depressed and anxious. The patient also is pleasantly confused, but at the same time, she is making more friends and has been interacting more with patients on the unit, but in a confused state. The patient also is less anxious and she seems to be slightly more comfortable on the unit since she has been in the hospital for almost more than 3 months. ASSESSMENT: The patient is still pleasantly confused and considered to be gravely disabled. TREATMENT PLAN: Continue current treatment and current medications and still waiting for placement issue and for court orders. [facility]# [id number]
--- NOTE | 2019-04-13 01:47 | Progress Notes ---
DATE: 04/12/2019 SUBJECTIVE: Chart was reviewed and the patient interviewed. Also discussed the patient's condition with the staff and reviewed records and labs. The patient is still pleasantly confused. The patient also is interacting more with peers and with others. She also is easier to redirect her. Otherwise, the patient continued to comply with taking her medications, and she is waiting for her placement issue. ASSESSMENT: The patient is still anxious and is still considered to be gravely disabled. TREATMENT PLAN: Continue to monitor behavior and condition closely. Also, continue adjusting psychotropic medications and work on behavioral modification and placement issue. JOB# [id number]
[2019-04-13] MEDS: Multivitamin w/ Minerals Tab PO SCH (08:13)
--- NOTE | 2019-04-13 11:58 | Internal Medicine Prog Note ---
Internal Medicine Subjective - Subjective Patient seen and examined:: with staff, chart reviewed Patient is:: awake, verbal, interactive, ambulating, confused Per staff patient has:: no adverse event, no episodes of fall, eating well, tolerating meds Internal Medicine Objective - Results Recent Labs: Laboratory Last Values POC Glucose 188 MG/DL (70 - 105) H 02/02/19 19:27 Triglycerides 162 mg/dL (<150) H 12/31/18 08:04 Cholesterol 234 mg/dL (<200) H 12/31/18 08:04 LDL Cholesterol Direct 155 mg/dL (75-193) 12/31/18 08:04 HDL Cholesterol 62 mg/dL (23-92) 12/31/18 08:04 - Physical Exam Vitals and I&O: Vital Signs Temp 97.5 F 04/13/19 06:51 Pulse 84 04/13/19 06:51 Resp 19 04/13/19 06:51 BP 95/65 04/13/19 06:51 Pulse Ox 98 04/13/19 06:51 Intake & Output 04/12/19 04/13/19 04/13/19 18:59 06:59 18:59 Intake Total 1000 120 Balance 1000 120 Intake: Oral 1000 120 Other: # Voids 4 3 # Bowel Movements 1 Active Medications: Current Medications Acetaminophen (Tylenol) 650 mg PO Q4HR PRN PRN Reason: Mild Pain / Temp above 100 Al Hydrox/Mg Hydrox/Simethicone (Maalox) 30 ml PO Q4HR PRN PRN Reason: GI DISTRESS Donepezil HCl (Aricept) 10 mg PO HS [facility] Last Admin: 04/12/19 21:13 Dose: 10 mg Magnesium Hydroxide (Milk Of Magnesia) 30 ml PO HS PRN PRN Reason: Constipation General: thin, appears younger HEENT: NC/AT, PERRLA, EOMI Neck: Supple, No JVD, No thyromegaly Lungs: CTAB Cardiovascular: RRR, Normal S1, Normal S2, with murmur Abdomen: soft, thin, non-distended, positive bowel sound Extremities: excoriation Internal Medicine Assmt/Plan - Assessment Assessment: alzheimers dementa elevated chol djd osteoporosis - Plan Plan: fall precaution nutritional support cont on calcium supplemetn will cont to follow dw rn add mvi Nutritional Asmnt/Malnutr-PDOC - Dietary Evaluation Malnutrition Findings (Please click <Entered> for more info): Nutritional Asmnt/Malnutrition Start: 01/04/19 09: 50 Text: Status: Complete Freq: Protocol: Document 01/04/19 14:59 LCJOSEG (Rec: 01/04/19 15:06 LCCOREY [id number]) Nutritional Asmnt/Malnutrition Patient General Information Nutritional Screening Moderate Risk Diagnosis psychosis Pertinent Medical Hx/Surgical Hx dementia, DJD, osteoporosis Subjective Information pt seen lying in bed, awake and alert, stated food has beed great. Pt is not a big eater. Encourage to eat balanced meals and pt agreed with it. Per EMR, PO intake 75 -100% Current Diet Order/ Nutrition Support regular Pertinent Medications reviewed Pertinent Labs 12/31 reviewed Nutritional Hx/Data Height 1.65 m Height (Calculated Centimeters) 165.1 Current Weight (lbs) 74.843 kg Weight (Calculated Kilograms) 74.8 Weight (Calculated Grams) 01205.7 [place] Body Weight 125 Body Mass Index (BMI) 27.4 Weight Status Overweight GI Symptoms GI Symptoms None Last BM 01/04 x 2 Difficult in: None Skin Integrity/Comment: intact Current %PO Good (75-100%) Estimated Nutritional Goals BEE in Kcals: Using Current wt Calories/Kcals/Kg 23-27 Kcals Calculated 0456-8077 Protein: Using Current wt Protein g/k.8 Protein Calculated 60 Fluid: ml 1725-1998ml (1ml/kcal) Nutritional Problem No current Nutrition Prob Problem N/A Malnutrition Alert Is there a minimum of two criteria No selected? Query Text:Check all the applicable criteria. A minimum of two criteria are recommended for diagnosis of either severe or non-severe malnutrition. Malnutrition Related to Morbid Obesity Malnutrition related to morbid obesity No Intervention/Recommendation Comments 1. Continue with regular diet as ordered. 2. Monitor PO intake, wt, labs and skin integrity 3. F/U as low risk in 7 days Expected Outcomes/Goals Expected Outcomes/Goals 1. PO intake to meet at least 75% of nutritional needs. 2. Wt stability, skin to remain intact, labs to approach WNL.
--- NOTE | 2019-04-13 12:20 | Progress Notes ---
DATE: 04/13/2019 SUBJECTIVE: Chart was reviewed and the patient interviewed. Also discussed the patient's condition with the staff and reviewed records and labs. The patient remains pleasantly confused, and she is still depressed and withdrawn. The patient also is still wandering around the unit in a confused state. She is able to follow directions. The patient denies any intention to harm herself or others, but she is still unable to care for herself. The patient continued to take Aricept 10 mg every day with no side effects. ASSESSMENT: The patient is still restless and is still confused and considered to be gravely disabled. TREATMENT PLAN: Continue to monitor her behavior and her condition and continue to work on her discharge plans and placement issue and waiting for court date for conservatorship. [facility]# [id number]
[2019-04-14] MEDS: Multivitamin w/ Minerals Tab PO SCH ×2 (08:16→08:17)
--- NOTE | 2019-04-14 12:55 | Internal Medicine Prog Note ---
Internal Medicine Subjective - Subjective Patient seen and examined:: with staff, chart reviewed Patient is:: awake, verbal, interactive, ambulating, confused Per staff patient has:: no adverse event, no episodes of fall, eating well, tolerating meds Internal Medicine Objective - Results Recent Labs: Laboratory Last Values POC Glucose 188 MG/DL (70 - 105) H 02/02/19 19:27 Triglycerides 162 mg/dL (<150) H 12/31/18 08:04 Cholesterol 234 mg/dL (<200) H 12/31/18 08:04 LDL Cholesterol Direct 155 mg/dL (75-193) 12/31/18 08:04 HDL Cholesterol 62 mg/dL (23-92) 12/31/18 08:04 - Physical Exam Vitals and I&O: Vital Signs Temp 97.2 F 04/14/19 06:11 Pulse 81 04/14/19 06:11 Resp 18 04/14/19 06:11 BP 122/68 04/13/19 20:00 Pulse Ox 98 04/14/19 06:11 Intake & Output 04/13/19 04/14/19 04/14/19 18:59 06:59 18:59 Intake Total 1100 480 Balance 1100 480 Intake: Oral 740 480 Other 360 Other: # Voids 3 2 # Bowel Movements 1 Active Medications: Current Medications Acetaminophen (Tylenol) 650 mg PO Q4HR PRN PRN Reason: Mild Pain / Temp above 100 Al Hydrox/Mg Hydrox/Simethicone (Maalox) 30 ml PO Q4HR PRN PRN Reason: GI DISTRESS Donepezil HCl (Aricept) 10 mg PO HS [facility] Last Admin: 04/13/19 20:53 Dose: 10 mg Magnesium Hydroxide (Milk Of Magnesia) 30 ml PO HS PRN PRN Reason: Constipation General: thin, appears younger HEENT: NC/AT, PERRLA, EOMI Neck: Supple, No JVD, No thyromegaly Lungs: CTAB Cardiovascular: RRR, Normal S1, Normal S2, with murmur Abdomen: soft, thin, non-distended, positive bowel sound Extremities: excoriation Internal Medicine Assmt/Plan - Assessment Assessment: alzheimers dementa elevated chol djd osteoporosis - Plan Plan: fall precaution nutritional support cont on calcium supplemetn will cont to follow dw rn add mvi Nutritional Asmnt/Malnutr-PDOC - Dietary Evaluation Malnutrition Findings (Please click <Entered> for more info): Nutritional Asmnt/Malnutrition Start: 01/04/19 09: 50 Text: Status: Complete Freq: Protocol: Document 01/04/19 14:59 LCJOSEG (Rec: 01/04/19 15:06 LCCOREY [email or web address]) Nutritional Asmnt/Malnutrition Patient General Information Nutritional Screening Moderate Risk Diagnosis psychosis Pertinent Medical Hx/Surgical Hx dementia, DJD, osteoporosis Subjective Information pt seen lying in bed, awake and alert, stated food has beed great. Pt is not a big eater. Encourage to eat balanced meals and pt agreed with it. Per EMR, PO intake 75 -100% Current Diet Order/ Nutrition Support regular Pertinent Medications reviewed Pertinent Labs 12/31 reviewed Nutritional Hx/Data Height 1.65 m Height (Calculated Centimeters) 165.1 Current Weight (lbs) 74.843 kg Weight (Calculated Kilograms) 74.8 Weight (Calculated Grams) 08852.7 [place] Body Weight 125 Body Mass Index (BMI) 27.4 Weight Status Overweight GI Symptoms GI Symptoms None Last BM 01/04 x 2 Difficult in: None Skin Integrity/Comment: intact Current %PO Good (75-100%) Estimated Nutritional Goals BEE in Kcals: Using Current wt Calories/Kcals/Kg 23-27 Kcals Calculated 6791-0618 Protein: Using Current wt Protein g/k.8 Protein Calculated 60 Fluid: ml 1725-1998ml (1ml/kcal) Nutritional Problem No current Nutrition Prob Problem N/A Malnutrition Alert Is there a minimum of two criteria No selected? Query Text:Check all the applicable criteria. A minimum of two criteria are recommended for diagnosis of either severe or non-severe malnutrition. Malnutrition Related to Morbid Obesity Malnutrition related to morbid obesity No Intervention/Recommendation Comments 1. Continue with regular diet as ordered. 2. Monitor PO intake, wt, labs and skin integrity 3. F/U as low risk in 7 days Expected Outcomes/Goals Expected Outcomes/Goals 1. PO intake to meet at least 75% of nutritional needs. 2. Wt stability, skin to remain intact, labs to approach WNL.
--- NOTE | 2019-04-14 17:47 | Progress Notes ---
DATE: 04/14/2019 SUBJECTIVE: Case was discussed with staff of the patient, reviewed records. This is a well-known case to me as I have seen her before many times covering for Dr. Mason. She is awaiting placement. She is sleeping well, eating well. Continues to be at times withdrawn and confused. She is able to follow direction. She denies any intent to harm herself or anyone. No side effects with the medication, no sedation, no nausea. She is on Aricept 10 mg at bedtime. We will continue outpatient group therapy, milieu therapy, adjust the medication as needed. JOB# [id number]
[2019-04-15] MEDS: Multivitamin w/ Minerals Tab PO SCH (09:15)
--- NOTE | 2019-04-15 12:34 | Internal Medicine Prog Note ---
Internal Medicine Subjective - Subjective Patient seen and examined:: with staff, chart reviewed Patient is:: awake, verbal, interactive, ambulating, confused Per staff patient has:: no adverse event, no episodes of fall, eating well, tolerating meds Internal Medicine Objective - Results Recent Labs: Laboratory Last Values POC Glucose 188 MG/DL (70 - 105) H 02/02/19 19:27 Triglycerides 162 mg/dL (<150) H 12/31/18 08:04 Cholesterol 234 mg/dL (<200) H 12/31/18 08:04 LDL Cholesterol Direct 155 mg/dL (75-193) 12/31/18 08:04 HDL Cholesterol 62 mg/dL (23-92) 12/31/18 08:04 - Physical Exam Vitals and I&O: Vital Signs Temp 97.1 F 04/15/19 06:20 Pulse 54 04/15/19 06:20 Resp 18 04/15/19 06:20 BP 121/70 04/15/19 06:20 Pulse Ox 99 04/15/19 06:20 Intake & Output 04/14/19 04/15/19 04/15/19 18:59 06:59 18:59 Intake Total 1200 Output Total 1 Balance 1199 Intake: Oral 1200 Output: Stool 1 Active Medications: Current Medications Acetaminophen (Tylenol) 650 mg PO Q4HR PRN PRN Reason: Mild Pain / Temp above 100 Al Hydrox/Mg Hydrox/Simethicone (Maalox) 30 ml PO Q4HR PRN PRN Reason: GI DISTRESS Donepezil HCl (Aricept) 10 mg PO HS [facility] Last Admin: 04/14/19 21:32 Dose: 10 mg Magnesium Hydroxide (Milk Of Magnesia) 30 ml PO HS PRN PRN Reason: Constipation General: thin, appears younger HEENT: NC/AT, PERRLA, EOMI Neck: Supple, No JVD, No thyromegaly Lungs: CTAB Cardiovascular: RRR, Normal S1, Normal S2, with murmur Abdomen: soft, thin, non-distended, positive bowel sound Extremities: excoriation Internal Medicine Assmt/Plan - Assessment Assessment: alzheimers dementa elevated chol djd osteoporosis - Plan Plan: fall precaution nutritional support cont on calcium supplemetn will cont to follow dw rn add mvi Nutritional Asmnt/Malnutr-PDOC - Dietary Evaluation Malnutrition Findings (Please click <Entered> for more info): Nutritional Asmnt/Malnutrition Start: 01/04/19 09: 50 Text: Status: Complete Freq: Protocol: Document 01/04/19 14:59 LCJOSEG (Rec: 01/04/19 15:06 LCCOREY [id number]) Nutritional Asmnt/Malnutrition Patient General Information Nutritional Screening Moderate Risk Diagnosis psychosis Pertinent Medical Hx/Surgical Hx dementia, DJD, osteoporosis Subjective Information pt seen lying in bed, awake and alert, stated food has beed great. Pt is not a big eater. Encourage to eat balanced meals and pt agreed with it. Per EMR, PO intake 75 -100% Current Diet Order/ Nutrition Support regular Pertinent Medications reviewed Pertinent Labs 12/31 reviewed Nutritional Hx/Data Height 1.65 m Height (Calculated Centimeters) 165.1 Current Weight (lbs) 74.843 kg Weight (Calculated Kilograms) 74.8 Weight (Calculated Grams) 89459.7 [place] Body Weight 125 Body Mass Index (BMI) 27.4 Weight Status Overweight GI Symptoms GI Symptoms None Last BM 01/04 x 2 Difficult in: None Skin Integrity/Comment: intact Current %PO Good (75-100%) Estimated Nutritional Goals BEE in Kcals: Using Current wt Calories/Kcals/Kg 23-27 Kcals Calculated 7999-9217 Protein: Using Current wt Protein g/k.8 Protein Calculated 60 Fluid: ml 1725-1998ml (1ml/kcal) Nutritional Problem No current Nutrition Prob Problem N/A Malnutrition Alert Is there a minimum of two criteria No selected? Query Text:Check all the applicable criteria. A minimum of two criteria are recommended for diagnosis of either severe or non-severe malnutrition. Malnutrition Related to Morbid Obesity Malnutrition related to morbid obesity No Intervention/Recommendation Comments 1. Continue with regular diet as ordered. 2. Monitor PO intake, wt, labs and skin integrity 3. F/U as low risk in 7 days Expected Outcomes/Goals Expected Outcomes/Goals 1. PO intake to meet at least 75% of nutritional needs. 2. Wt stability, skin to remain intact, labs to approach WNL.
--- NOTE | 2019-04-15 14:06 | Progress Notes ---
DATE: 04/15/2019 Case was discussed with staff of the patient, reviewed records. The patient has been very pleasant and cooperative. She is sleeping well, eating well. She denies any current intent to harm himself or anyone. She denies any visual hallucination or paranoia. She is on Aricept, voices are working on discharge plan and will continue outpatient group therapy, milieu therapy, adjust medication as needed. [facility]# [id number]
[2019-04-16] MEDS: Multivitamin w/ Minerals Tab PO SCH (09:00)
--- NOTE | 2019-04-16 12:26 | Internal Medicine Prog Note ---
Internal Medicine Subjective - Subjective Patient seen and examined:: with staff, chart reviewed Patient is:: awake, verbal, interactive, ambulating, confused Per staff patient has:: no adverse event, no episodes of fall, eating well, tolerating meds Internal Medicine Objective - Results Recent Labs: Laboratory Last Values POC Glucose 188 MG/DL (70 - 105) H 02/02/19 19:27 Triglycerides 162 mg/dL (<150) H 12/31/18 08:04 Cholesterol 234 mg/dL (<200) H 12/31/18 08:04 LDL Cholesterol Direct 155 mg/dL (75-193) 12/31/18 08:04 HDL Cholesterol 62 mg/dL (23-92) 12/31/18 08:04 - Physical Exam Vitals and I&O: Vital Signs Temp 97.7 F 04/16/19 06:28 Pulse 53 04/16/19 06:28 Resp 18 04/16/19 06:28 BP 128/75 04/16/19 06:28 Pulse Ox 97 04/16/19 06:28 Intake & Output 04/15/19 04/16/19 04/16/19 18:59 06:59 18:59 Intake Total 1000 240 Balance 1000 240 Intake: Oral 1000 240 Other: # Voids 4 2 # Bowel Movements 1 0 Active Medications: Current Medications Acetaminophen (Tylenol) 650 mg PO Q4HR PRN PRN Reason: Mild Pain / Temp above 100 Al Hydrox/Mg Hydrox/Simethicone (Maalox) 30 ml PO Q4HR PRN PRN Reason: GI DISTRESS Donepezil HCl (Aricept) 10 mg PO HS [facility] Last Admin: 04/15/19 21:42 Dose: 10 mg Magnesium Hydroxide (Milk Of Magnesia) 30 ml PO HS PRN PRN Reason: Constipation General: thin, appears younger HEENT: NC/AT, PERRLA, EOMI Neck: Supple, No JVD, No thyromegaly Lungs: CTAB Cardiovascular: RRR, Normal S1, Normal S2, with murmur Abdomen: soft, thin, non-distended, positive bowel sound Extremities: excoriation Internal Medicine Assmt/Plan - Assessment Assessment: alzheimers dementa elevated chol djd osteoporosis - Plan Plan: fall precaution nutritional support cont on calcium supplemetn will cont to follow dw rn add mvi Nutritional Asmnt/Malnutr-PDOC - Dietary Evaluation Malnutrition Findings (Please click <Entered> for more info): Nutritional Asmnt/Malnutrition Start: 01/04/19 09: 50 Text: Status: Complete Freq: Protocol: Document 01/04/19 14:59 LCJOSEG (Rec: 01/04/19 15:06 TARIK [email or web address]) Nutritional Asmnt/Malnutrition Patient General Information Nutritional Screening Moderate Risk Diagnosis psychosis Pertinent Medical Hx/Surgical Hx dementia, DJD, osteoporosis Subjective Information pt seen lying in bed, awake and alert, stated food has beed great. Pt is not a big eater. Encourage to eat balanced meals and pt agreed with it. Per EMR, PO intake 75 -100% Current Diet Order/ Nutrition Support regular Pertinent Medications reviewed Pertinent Labs 12/31 reviewed Nutritional Hx/Data Height 1.65 m Height (Calculated Centimeters) 165.1 Current Weight (lbs) 74.843 kg Weight (Calculated Kilograms) 74.8 Weight (Calculated Grams) 15019.7 [place] Body Weight 125 Body Mass Index (BMI) 27.4 Weight Status Overweight GI Symptoms GI Symptoms None Last BM 01/04 x 2 Difficult in: None Skin Integrity/Comment: intact Current %PO Good (75-100%) Estimated Nutritional Goals BEE in Kcals: Using Current wt Calories/Kcals/Kg 23-27 Kcals Calculated 2743-1559 Protein: Using Current wt Protein g/k.8 Protein Calculated 60 Fluid: ml 1725-1998ml (1ml/kcal) Nutritional Problem No current Nutrition Prob Problem N/A Malnutrition Alert Is there a minimum of two criteria No selected? Query Text:Check all the applicable criteria. A minimum of two criteria are recommended for diagnosis of either severe or non-severe malnutrition. Malnutrition Related to Morbid Obesity Malnutrition related to morbid obesity No Intervention/Recommendation Comments 1. Continue with regular diet as ordered. 2. Monitor PO intake, wt, labs and skin integrity 3. F/U as low risk in 7 days Expected Outcomes/Goals Expected Outcomes/Goals 1. PO intake to meet at least 75% of nutritional needs. 2. Wt stability, skin to remain intact, labs to approach WNL.
--- NOTE | 2019-04-17 01:35 | Progress Notes ---
DATE: 04/16/2019 SUBJECTIVE: Chart reviewed and the patient interviewed. Also discussed the patient's condition with the staff and reviewed the records and labs. The patient is still depressed and is still pleasantly confused. The patient also is still compliant with taking her medications with no side effects of medications. The patient also still waiting for her discharge plans and still waiting for court hearing. At the same time, we will continue working on her irritability and her irritable mood and we will continue to follow up. [facility]# [id number]
--- NOTE | 2019-04-17 08:11 | Progress Notes ---
DATE: SUBJECTIVE: Chart reviewed and the patient interviewed. Also discussed the patient's condition with the staff and reviewed records and labs. The patient is pleasantly confused and she is still withdrawn and guarded. The patient also is still interacting minimally with others. The patient also seems to be depressed, but needs a lot of redirections. Otherwise, the patient is compliant with taking her medications with no side effect of medications. ASSESSMENT: The patient is still confused, but waiting for placement. TREATMENT PLAN: Continue to monitor behavior and condition closely and continue to work on her discharge plans and placement issue. JOB# [id number]
[2019-04-17] MEDS: Multivitamin w/ Minerals Tab PO SCH (08:24)
--- NOTE | 2019-04-17 12:34 | Internal Medicine Prog Note ---
Internal Medicine Subjective - Subjective Patient seen and examined:: with staff, chart reviewed Patient is:: awake, verbal, interactive, ambulating, confused Per staff patient has:: no adverse event, no episodes of fall, eating well, tolerating meds Internal Medicine Objective - Results Recent Labs: Laboratory Last Values POC Glucose 188 MG/DL (70 - 105) H 02/02/19 19:27 Triglycerides 162 mg/dL (<150) H 12/31/18 08:04 Cholesterol 234 mg/dL (<200) H 12/31/18 08:04 LDL Cholesterol Direct 155 mg/dL (75-193) 12/31/18 08:04 HDL Cholesterol 62 mg/dL (23-92) 12/31/18 08:04 - Physical Exam Vitals and I&O: Vital Signs Temp 98.3 F 04/16/19 19:39 Pulse 77 04/16/19 19:39 Resp 19 04/16/19 20:00 BP 123/78 04/16/19 19:39 Pulse Ox 97 04/16/19 19:39 Intake & Output 04/16/19 04/17/19 04/17/19 18:59 06:59 18:59 Intake Total 240 Balance 240 Intake: Oral 240 Other: # Voids 2 2 # Bowel Movements 1 Active Medications: Current Medications Acetaminophen (Tylenol) 650 mg PO Q4HR PRN PRN Reason: Mild Pain / Temp above 100 Al Hydrox/Mg Hydrox/Simethicone (Maalox) 30 ml PO Q4HR PRN PRN Reason: GI DISTRESS Donepezil HCl (Aricept) 10 mg PO HS [facility] Last Admin: 04/16/19 21:09 Dose: 10 mg Magnesium Hydroxide (Milk Of Magnesia) 30 ml PO HS PRN PRN Reason: Constipation General: thin, appears younger HEENT: NC/AT, PERRLA, EOMI Neck: Supple, No JVD, No thyromegaly Lungs: CTAB Cardiovascular: RRR, Normal S1, Normal S2, with murmur Abdomen: soft, thin, non-distended, positive bowel sound Extremities: excoriation Internal Medicine Assmt/Plan - Assessment Assessment: alzheimers dementa elevated chol djd osteoporosis - Plan Plan: fall precaution nutritional support cont on calcium supplemetn will cont to follow dw rn add mvi Nutritional Asmnt/Malnutr-PDOC - Dietary Evaluation Malnutrition Findings (Please click <Entered> for more info): Nutritional Asmnt/Malnutrition Start: 01/04/19 09: 50 Text: Status: Complete Freq: Protocol: Document 01/04/19 14:59 MICHICOREY (Rec: 01/04/19 15:06 MICHICOREY [email or web address]) Nutritional Asmnt/Malnutrition Patient General Information Nutritional Screening Moderate Risk Diagnosis psychosis Pertinent Medical Hx/Surgical Hx dementia, DJD, osteoporosis Subjective Information pt seen lying in bed, awake and alert, stated food has beed great. Pt is not a big eater. Encourage to eat balanced meals and pt agreed with it. Per EMR, PO intake 75 -100% Current Diet Order/ Nutrition Support regular Pertinent Medications reviewed Pertinent Labs 12/31 reviewed Nutritional Hx/Data Height 1.65 m Height (Calculated Centimeters) 165.1 Current Weight (lbs) 74.843 kg Weight (Calculated Kilograms) 74.8 Weight (Calculated Grams) 68801.7 [place] Body Weight 125 Body Mass Index (BMI) 27.4 Weight Status Overweight GI Symptoms GI Symptoms None Last BM 01/04 x 2 Difficult in: None Skin Integrity/Comment: intact Current %PO Good (75-100%) Estimated Nutritional Goals BEE in Kcals: Using Current wt Calories/Kcals/Kg 23-27 Kcals Calculated 3947-3339 Protein: Using Current wt Protein g/k.8 Protein Calculated 60 Fluid: ml 1725-1998ml (1ml/kcal) Nutritional Problem No current Nutrition Prob Problem N/A Malnutrition Alert Is there a minimum of two criteria No selected? Query Text:Check all the applicable criteria. A minimum of two criteria are recommended for diagnosis of either severe or non-severe malnutrition. Malnutrition Related to Morbid Obesity Malnutrition related to morbid obesity No Intervention/Recommendation Comments 1. Continue with regular diet as ordered. 2. Monitor PO intake, wt, labs and skin integrity 3. F/U as low risk in 7 days Expected Outcomes/Goals Expected Outcomes/Goals 1. PO intake to meet at least 75% of nutritional needs. 2. Wt stability, skin to remain intact, labs to approach WNL.
[2019-04-18] MEDS: Multivitamin w/ Minerals Tab PO SCH (08:11)
--- NOTE | 2019-04-18 12:18 | Internal Medicine Prog Note ---
Internal Medicine Subjective - Subjective Patient seen and examined:: with staff, chart reviewed Patient is:: awake, verbal, interactive, ambulating, confused Per staff patient has:: no adverse event, no episodes of fall, eating well, tolerating meds Internal Medicine Objective - Results Recent Labs: Laboratory Last Values POC Glucose 188 MG/DL (70 - 105) H 02/02/19 19:27 Triglycerides 162 mg/dL (<150) H 12/31/18 08:04 Cholesterol 234 mg/dL (<200) H 12/31/18 08:04 LDL Cholesterol Direct 155 mg/dL (75-193) 12/31/18 08:04 HDL Cholesterol 62 mg/dL (23-92) 12/31/18 08:04 - Physical Exam Vitals and I&O: Vital Signs Temp 97.3 F 04/18/19 06:29 Pulse 86 04/18/19 06:29 Resp 17 04/18/19 08:00 BP 121/63 04/18/19 06:29 Pulse Ox 100 04/18/19 06:29 Intake & Output 04/17/19 04/18/19 04/18/19 18:59 06:59 18:59 Intake Total 1300 120 Balance 1300 120 Intake: Oral 1300 120 Other: # Voids 2 # Bowel Movements 1 Active Medications: Current Medications Acetaminophen (Tylenol) 650 mg PO Q4HR PRN PRN Reason: Mild Pain / Temp above 100 Al Hydrox/Mg Hydrox/Simethicone (Maalox) 30 ml PO Q4HR PRN PRN Reason: GI DISTRESS Donepezil HCl (Aricept) 10 mg PO HS [facility] Last Admin: 04/17/19 20:52 Dose: 10 mg Magnesium Hydroxide (Milk Of Magnesia) 30 ml PO HS PRN PRN Reason: Constipation General: thin, appears younger HEENT: NC/AT, PERRLA, EOMI Neck: Supple, No JVD, No thyromegaly Lungs: CTAB Cardiovascular: RRR, Normal S1, Normal S2, with murmur Abdomen: soft, thin, non-distended, positive bowel sound Extremities: excoriation Internal Medicine Assmt/Plan - Assessment Assessment: alzheimers dementa elevated chol djd osteoporosis - Plan Plan: fall precaution nutritional support cont on calcium supplemetn will cont to follow dw rn add mvi Nutritional Asmnt/Malnutr-PDOC - Dietary Evaluation Malnutrition Findings (Please click <Entered> for more info): Nutritional Asmnt/Malnutrition Start: 01/04/19 09: 50 Text: Status: Complete Freq: Protocol: Document 01/04/19 14:59 ANUELG (Rec: 01/04/19 15:06 TARIK [id number]) Nutritional Asmnt/Malnutrition Patient General Information Nutritional Screening Moderate Risk Diagnosis psychosis Pertinent Medical Hx/Surgical Hx dementia, DJD, osteoporosis Subjective Information pt seen lying in bed, awake and alert, stated food has beed great. Pt is not a big eater. Encourage to eat balanced meals and pt agreed with it. Per EMR, PO intake 75 -100% Current Diet Order/ Nutrition Support regular Pertinent Medications reviewed Pertinent Labs 12/31 reviewed Nutritional Hx/Data Height 1.65 m Height (Calculated Centimeters) 165.1 Current Weight (lbs) 74.843 kg Weight (Calculated Kilograms) 74.8 Weight (Calculated Grams) 07717.7 [place] Body Weight 125 Body Mass Index (BMI) 27.4 Weight Status Overweight GI Symptoms GI Symptoms None Last BM 01/04 x 2 Difficult in: None Skin Integrity/Comment: intact Current %PO Good (75-100%) Estimated Nutritional Goals BEE in Kcals: Using Current wt Calories/Kcals/Kg 23-27 Kcals Calculated 8849-2272 Protein: Using Current wt Protein g/k.8 Protein Calculated 60 Fluid: ml 1725-1998ml (1ml/kcal) Nutritional Problem No current Nutrition Prob Problem N/A Malnutrition Alert Is there a minimum of two criteria No selected? Query Text:Check all the applicable criteria. A minimum of two criteria are recommended for diagnosis of either severe or non-severe malnutrition. Malnutrition Related to Morbid Obesity Malnutrition related to morbid obesity No Intervention/Recommendation Comments 1. Continue with regular diet as ordered. 2. Monitor PO intake, wt, labs and skin integrity 3. F/U as low risk in 7 days Expected Outcomes/Goals Expected Outcomes/Goals 1. PO intake to meet at least 75% of nutritional needs. 2. Wt stability, skin to remain intact, labs to approach WNL.
--- NOTE | 2019-04-18 21:36 | Progress Notes ---
DATE: 04/18/2019 The patient is currently in the hospital, difficult placement, gravely disabled, cannot take care of her basic needs. I have seen this patient many times over the past few months. Resting comfortably, calm, generally cooperative, still confused, gravely disabled, unable to care for her basic needs. No medication side effects. Nurses noting she is calm, but confused. JOB# [id number]
--- NOTE | 2019-04-19 07:37 | Progress Notes ---
DATE: 04/19/2019 SUBJECTIVE: Chart reviewed and the patient interviewed. Also, discussed the patient's condition with the staff and reviewed records and labs. The patient continued to be pleasantly confused and she is interacting more. The patient also is denying any intention to harm herself or others, but she is still confused and she still needs redirections. The patient also is still suspicious and is still paranoid. Otherwise, the patient is compliant with taking her medications and she is still confused and needs lots of redirections. Also, waiting for discharge plans and for placement issue. JOB# [id number]
[2019-04-19] MEDS: Multivitamin w/ Minerals Tab PO SCH (08:18)
--- NOTE | 2019-04-19 12:22 | Internal Medicine Prog Note ---
Internal Medicine Subjective - Subjective Patient seen and examined:: with staff, chart reviewed Patient is:: awake, verbal, interactive, ambulating, confused Per staff patient has:: no adverse event, no episodes of fall, eating well, tolerating meds Internal Medicine Objective - Results Recent Labs: Laboratory Last Values POC Glucose 188 MG/DL (70 - 105) H 02/02/19 19:27 Triglycerides 162 mg/dL (<150) H 12/31/18 08:04 Cholesterol 234 mg/dL (<200) H 12/31/18 08:04 LDL Cholesterol Direct 155 mg/dL (75-193) 12/31/18 08:04 HDL Cholesterol 62 mg/dL (23-92) 12/31/18 08:04 - Physical Exam Vitals and I&O: Vital Signs Temp 97 F 04/19/19 06:35 Pulse 74 04/19/19 06:35 Resp 16 04/19/19 08:00 BP 92/67 04/19/19 06:35 Pulse Ox 98 04/19/19 06:35 Intake & Output 04/18/19 04/19/19 04/19/19 18:59 06:59 18:59 Intake Total 1250 120 Balance 1250 120 Intake: Oral 1250 120 Other: # Voids 3 # Bowel Movements 1 Active Medications: Current Medications Acetaminophen (Tylenol) 650 mg PO Q4HR PRN PRN Reason: Mild Pain / Temp above 100 Al Hydrox/Mg Hydrox/Simethicone (Maalox) 30 ml PO Q4HR PRN PRN Reason: GI DISTRESS Donepezil HCl (Aricept) 10 mg PO HS [facility] Last Admin: 04/18/19 21:42 Dose: 10 mg Magnesium Hydroxide (Milk Of Magnesia) 30 ml PO HS PRN PRN Reason: Constipation General: thin, appears younger HEENT: NC/AT, PERRLA, EOMI Neck: Supple, No JVD, No thyromegaly Lungs: CTAB Cardiovascular: RRR, Normal S1, Normal S2, with murmur Abdomen: soft, thin, non-distended, positive bowel sound Extremities: excoriation Internal Medicine Assmt/Plan - Assessment Assessment: alzheimers dementa elevated chol djd osteoporosis - Plan Plan: fall precaution nutritional support cont on calcium supplemetn will cont to follow dw rn add mvi Nutritional Asmnt/Malnutr-PDOC - Dietary Evaluation Malnutrition Findings (Please click <Entered> for more info): Nutritional Asmnt/Malnutrition Start: 01/04/19 09: 50 Text: Status: Complete Freq: Protocol: Document 01/04/19 14:59 [email or web address] (Rec: 01/04/19 15:06 LCCOREY [id number]) Nutritional Asmnt/Malnutrition Patient General Information Nutritional Screening Moderate Risk Diagnosis psychosis Pertinent Medical Hx/Surgical Hx dementia, DJD, osteoporosis Subjective Information pt seen lying in bed, awake and alert, stated food has beed great. Pt is not a big eater. Encourage to eat balanced meals and pt agreed with it. Per EMR, PO intake 75 -100% Current Diet Order/ Nutrition Support regular Pertinent Medications reviewed Pertinent Labs 12/31 reviewed Nutritional Hx/Data Height 1.65 m Height (Calculated Centimeters) 165.1 Current Weight (lbs) 74.843 kg Weight (Calculated Kilograms) 74.8 Weight (Calculated Grams) 30938.7 [place] Body Weight 125 Body Mass Index (BMI) 27.4 Weight Status Overweight GI Symptoms GI Symptoms None Last BM 01/04 x 2 Difficult in: None Skin Integrity/Comment: intact Current %PO Good (75-100%) Estimated Nutritional Goals BEE in Kcals: Using Current wt Calories/Kcals/Kg 23-27 Kcals Calculated 5057-5144 Protein: Using Current wt Protein g/k.8 Protein Calculated 60 Fluid: ml 1725-1998ml (1ml/kcal) Nutritional Problem No current Nutrition Prob Problem N/A Malnutrition Alert Is there a minimum of two criteria No selected? Query Text:Check all the applicable criteria. A minimum of two criteria are recommended for diagnosis of either severe or non-severe malnutrition. Malnutrition Related to Morbid Obesity Malnutrition related to morbid obesity No Intervention/Recommendation Comments 1. Continue with regular diet as ordered. 2. Monitor PO intake, wt, labs and skin integrity 3. F/U as low risk in 7 days Expected Outcomes/Goals Expected Outcomes/Goals 1. PO intake to meet at least 75% of nutritional needs. 2. Wt stability, skin to remain intact, labs to approach WNL.
--- NOTE | 2019-04-20 07:39 | Progress Notes ---
DATE: 04/20/2019 SUBJECTIVE: Chart reviewed and the patient interviewed. Also discussed the patient's condition with the staff and reviewed records and labs. The patient is still pleasantly confused and anxious, but no behavioral issues. The patient also is wandering around the unit, but no agitation. The patient is depressed because of her long hospital stay, but at the same time waiting for the court order. The patient denies any side effects of medications. ASSESSMENT: The patient is still gravely disabled. TREATMENT PLAN: Continue to monitor behavior and still waiting for placement issue and discharge plans. JOB# [id number]
[2019-04-20] MEDS: Multivitamin w/ Minerals Tab PO SCH (10:00)
--- NOTE | 2019-04-20 12:16 | Internal Medicine Prog Note ---
Internal Medicine Subjective - Subjective Patient seen and examined:: with staff, chart reviewed Patient is:: awake, verbal, interactive, ambulating, confused Per staff patient has:: no adverse event, no episodes of fall, eating well, tolerating meds Internal Medicine Objective - Results Recent Labs: Laboratory Last Values POC Glucose 188 MG/DL (70 - 105) H 02/02/19 19:27 Triglycerides 162 mg/dL (<150) H 12/31/18 08:04 Cholesterol 234 mg/dL (<200) H 12/31/18 08:04 LDL Cholesterol Direct 155 mg/dL (75-193) 12/31/18 08:04 HDL Cholesterol 62 mg/dL (23-92) 12/31/18 08:04 - Physical Exam Vitals and I&O: Vital Signs Temp 97.9 F 04/19/19 14:00 Pulse 72 04/19/19 14:00 Resp 16 04/19/19 19:43 BP 92/67 04/19/19 06:35 Pulse Ox 96 04/19/19 14:00 Intake & Output 04/19/19 04/20/19 04/20/19 18:59 06:59 18:59 Intake Total 1000 Balance 1000 Intake: Oral 1000 Other: # Voids 4 # Bowel Movements 1 Active Medications: Current Medications Acetaminophen (Tylenol) 650 mg PO Q4HR PRN PRN Reason: Mild Pain / Temp above 100 Al Hydrox/Mg Hydrox/Simethicone (Maalox) 30 ml PO Q4HR PRN PRN Reason: GI DISTRESS Donepezil HCl (Aricept) 10 mg PO HS [facility] Last Admin: 04/19/19 20:30 Dose: 10 mg Magnesium Hydroxide (Milk Of Magnesia) 30 ml PO HS PRN PRN Reason: Constipation General: thin, appears younger HEENT: NC/AT, PERRLA, EOMI Neck: Supple, No JVD, No thyromegaly Lungs: CTAB Cardiovascular: RRR, Normal S1, Normal S2, with murmur Abdomen: soft, thin, non-distended, positive bowel sound Extremities: excoriation Internal Medicine Assmt/Plan - Assessment Assessment: alzheimers dementa elevated chol djd osteoporosis - Plan Plan: fall precaution nutritional support cont on calcium supplemetn will cont to follow dw rn add mvi Nutritional Asmnt/Malnutr-PDOC - Dietary Evaluation Malnutrition Findings (Please click <Entered> for more info): Nutritional Asmnt/Malnutrition Start: 01/04/19 09: 50 Text: Status: Complete Freq: Protocol: Document 01/04/19 14:59 MICHICOREY (Rec: 01/04/19 15:06 MICHICOREY [id number]) Nutritional Asmnt/Malnutrition Patient General Information Nutritional Screening Moderate Risk Diagnosis psychosis Pertinent Medical Hx/Surgical Hx dementia, DJD, osteoporosis Subjective Information pt seen lying in bed, awake and alert, stated food has beed great. Pt is not a big eater. Encourage to eat balanced meals and pt agreed with it. Per EMR, PO intake 75 -100% Current Diet Order/ Nutrition Support regular Pertinent Medications reviewed Pertinent Labs 12/31 reviewed Nutritional Hx/Data Height 1.65 m Height (Calculated Centimeters) 165.1 Current Weight (lbs) 74.843 kg Weight (Calculated Kilograms) 74.8 Weight (Calculated Grams) 71692.7 [place] Body Weight 125 Body Mass Index (BMI) 27.4 Weight Status Overweight GI Symptoms GI Symptoms None Last BM 01/04 x 2 Difficult in: None Skin Integrity/Comment: intact Current %PO Good (75-100%) Estimated Nutritional Goals BEE in Kcals: Using Current wt Calories/Kcals/Kg 23-27 Kcals Calculated 6822-5043 Protein: Using Current wt Protein g/k.8 Protein Calculated 60 Fluid: ml 1725-1998ml (1ml/kcal) Nutritional Problem No current Nutrition Prob Problem N/A Malnutrition Alert Is there a minimum of two criteria No selected? Query Text:Check all the applicable criteria. A minimum of two criteria are recommended for diagnosis of either severe or non-severe malnutrition. Malnutrition Related to Morbid Obesity Malnutrition related to morbid obesity No Intervention/Recommendation Comments 1. Continue with regular diet as ordered. 2. Monitor PO intake, wt, labs and skin integrity 3. F/U as low risk in 7 days Expected Outcomes/Goals Expected Outcomes/Goals 1. PO intake to meet at least 75% of nutritional needs. 2. Wt stability, skin to remain intact, labs to approach WNL.
[2019-04-21] MEDS: Multivitamin w/ Minerals Tab PO SCH (08:40)
--- NOTE | 2019-04-21 13:25 | Internal Medicine Prog Note ---
Internal Medicine Subjective - Subjective Patient seen and examined:: with staff, chart reviewed Patient is:: awake, verbal, interactive, ambulating, confused Per staff patient has:: no adverse event, no episodes of fall, eating well, tolerating meds Internal Medicine Objective - Results Recent Labs: Laboratory Last Values POC Glucose 188 MG/DL (70 - 105) H 02/02/19 19:27 Triglycerides 162 mg/dL (<150) H 12/31/18 08:04 Cholesterol 234 mg/dL (<200) H 12/31/18 08:04 LDL Cholesterol Direct 155 mg/dL (75-193) 12/31/18 08:04 HDL Cholesterol 62 mg/dL (23-92) 12/31/18 08:04 - Physical Exam Vitals and I&O: Vital Signs Temp 97.7 F 04/20/19 20:00 Pulse 79 04/20/19 20:00 Resp 18 04/20/19 20:00 BP 126/75 04/20/19 20:00 Pulse Ox 95 04/20/19 20:00 Intake & Output 04/20/19 04/21/19 04/21/19 18:59 06:59 18:59 Intake Total 1000 Balance 1000 Intake: Oral 1000 Other: # Voids 4 # Bowel Movements 1 Active Medications: Current Medications Acetaminophen (Tylenol) 650 mg PO Q4HR PRN PRN Reason: Mild Pain / Temp above 100 Al Hydrox/Mg Hydrox/Simethicone (Maalox) 30 ml PO Q4HR PRN PRN Reason: GI DISTRESS Donepezil HCl (Aricept) 10 mg PO HS [facility] Last Admin: 04/20/19 21:22 Dose: 10 mg Magnesium Hydroxide (Milk Of Magnesia) 30 ml PO HS PRN PRN Reason: Constipation General: thin, appears younger HEENT: NC/AT, PERRLA, EOMI Neck: Supple, No JVD, No thyromegaly Lungs: CTAB Cardiovascular: RRR, Normal S1, Normal S2, with murmur Abdomen: soft, thin, non-distended, positive bowel sound Extremities: excoriation Internal Medicine Assmt/Plan - Assessment Assessment: alzheimers dementa elevated chol djd osteoporosis - Plan Plan: fall precaution nutritional support cont on calcium supplemetn will cont to follow dw rn add mvi Nutritional Asmnt/Malnutr-PDOC - Dietary Evaluation Malnutrition Findings (Please click <Entered> for more info): Nutritional Asmnt/Malnutrition Start: 01/04/19 09: 50 Text: Status: Complete Freq: Protocol: Document 01/04/19 14:59 MICHICOREY (Rec: 01/04/19 15:06 MICHICOREY [id number]) Nutritional Asmnt/Malnutrition Patient General Information Nutritional Screening Moderate Risk Diagnosis psychosis Pertinent Medical Hx/Surgical Hx dementia, DJD, osteoporosis Subjective Information pt seen lying in bed, awake and alert, stated food has beed great. Pt is not a big eater. Encourage to eat balanced meals and pt agreed with it. Per EMR, PO intake 75 -100% Current Diet Order/ Nutrition Support regular Pertinent Medications reviewed Pertinent Labs 12/31 reviewed Nutritional Hx/Data Height 1.65 m Height (Calculated Centimeters) 165.1 Current Weight (lbs) 74.843 kg Weight (Calculated Kilograms) 74.8 Weight (Calculated Grams) 56112.7 [place] Body Weight 125 Body Mass Index (BMI) 27.4 Weight Status Overweight GI Symptoms GI Symptoms None Last BM 01/04 x 2 Difficult in: None Skin Integrity/Comment: intact Current %PO Good (75-100%) Estimated Nutritional Goals BEE in Kcals: Using Current wt Calories/Kcals/Kg 23-27 Kcals Calculated 2627-3815 Protein: Using Current wt Protein g/k.8 Protein Calculated 60 Fluid: ml 1725-1998ml (1ml/kcal) Nutritional Problem No current Nutrition Prob Problem N/A Malnutrition Alert Is there a minimum of two criteria No selected? Query Text:Check all the applicable criteria. A minimum of two criteria are recommended for diagnosis of either severe or non-severe malnutrition. Malnutrition Related to Morbid Obesity Malnutrition related to morbid obesity No Intervention/Recommendation Comments 1. Continue with regular diet as ordered. 2. Monitor PO intake, wt, labs and skin integrity 3. F/U as low risk in 7 days Expected Outcomes/Goals Expected Outcomes/Goals 1. PO intake to meet at least 75% of nutritional needs. 2. Wt stability, skin to remain intact, labs to approach WNL.
--- NOTE | 2019-04-21 19:27 | Progress Notes ---
DATE: 04/21/2019 SUBJECTIVE: The patient was seen and evaluated. The patient's chart reviewed. Covering for Dr. Mason. The patient's chart reviewed. No acute events overnight. The patient continues to be with poor memory and no behavior issues. MENTAL STATUS EXAMINATION: Which was mostly focused about being discharged. No agitation and wandering around the unit. ASSESSMENT AND PLAN: The patient continues to be gravely disabled secondary to severe dementia and poor family support system. He needs a lower level of care. We will continue with the current medication regimen. JOB# [id number]
[2019-04-22] MEDS: Multivitamin w/ Minerals Tab PO SCH (09:06)
--- NOTE | 2019-04-22 14:05 | Internal Medicine Prog Note ---
Internal Medicine Subjective - Subjective Patient seen and examined:: with staff, chart reviewed Patient is:: awake, verbal, interactive, ambulating, confused Per staff patient has:: no adverse event, no episodes of fall, eating well, tolerating meds Internal Medicine Objective - Results Recent Labs: Laboratory Last Values POC Glucose 188 MG/DL (70 - 105) H 02/02/19 19:27 Triglycerides 162 mg/dL (<150) H 12/31/18 08:04 Cholesterol 234 mg/dL (<200) H 12/31/18 08:04 LDL Cholesterol Direct 155 mg/dL (75-193) 12/31/18 08:04 HDL Cholesterol 62 mg/dL (23-92) 12/31/18 08:04 - Physical Exam Vitals and I&O: Vital Signs Temp 97.1 F 04/22/19 06:58 Pulse 85 04/22/19 06:58 Resp 19 04/22/19 06:58 BP 110/76 04/22/19 06:58 Pulse Ox 99 04/22/19 06:58 Intake & Output 04/21/19 04/22/19 04/22/19 18:59 06:59 18:59 Intake Total 900 170 Balance 900 170 Intake: Oral 900 170 Other: # Voids 3 2 # Bowel Movements 1 Active Medications: Current Medications Acetaminophen (Tylenol) 650 mg PO Q4HR PRN PRN Reason: Mild Pain / Temp above 100 Al Hydrox/Mg Hydrox/Simethicone (Maalox) 30 ml PO Q4HR PRN PRN Reason: GI DISTRESS Donepezil HCl (Aricept) 10 mg PO HS [facility] Last Admin: 04/21/19 20:54 Dose: 10 mg Magnesium Hydroxide (Milk Of Magnesia) 30 ml PO HS PRN PRN Reason: Constipation General: thin, appears younger HEENT: NC/AT, PERRLA, EOMI Neck: Supple, No JVD, No thyromegaly Lungs: CTAB Cardiovascular: RRR, Normal S1, Normal S2, with murmur Abdomen: soft, thin, non-distended, positive bowel sound Extremities: excoriation Internal Medicine Assmt/Plan - Assessment Assessment: alzheimers dementa elevated chol djd osteoporosis - Plan Plan: fall precaution nutritional support cont on calcium supplemetn will cont to follow dw rn add mvi Nutritional Asmnt/Malnutr-PDOC - Dietary Evaluation Malnutrition Findings (Please click <Entered> for more info): Nutritional Asmnt/Malnutrition Start: 01/04/19 09: 50 Text: Status: Complete Freq: Protocol: Document 01/04/19 14:59 LCJOSEG (Rec: 01/04/19 15:06 LCCOREY [email or web address]) Nutritional Asmnt/Malnutrition Patient General Information Nutritional Screening Moderate Risk Diagnosis psychosis Pertinent Medical Hx/Surgical Hx dementia, DJD, osteoporosis Subjective Information pt seen lying in bed, awake and alert, stated food has beed great. Pt is not a big eater. Encourage to eat balanced meals and pt agreed with it. Per EMR, PO intake 75 -100% Current Diet Order/ Nutrition Support regular Pertinent Medications reviewed Pertinent Labs 12/31 reviewed Nutritional Hx/Data Height 1.65 m Height (Calculated Centimeters) 165.1 Current Weight (lbs) 74.843 kg Weight (Calculated Kilograms) 74.8 Weight (Calculated Grams) 44520.7 [place] Body Weight 125 Body Mass Index (BMI) 27.4 Weight Status Overweight GI Symptoms GI Symptoms None Last BM 01/04 x 2 Difficult in: None Skin Integrity/Comment: intact Current %PO Good (75-100%) Estimated Nutritional Goals BEE in Kcals: Using Current wt Calories/Kcals/Kg 23-27 Kcals Calculated 3150-7729 Protein: Using Current wt Protein g/k.8 Protein Calculated 60 Fluid: ml 1725-1998ml (1ml/kcal) Nutritional Problem No current Nutrition Prob Problem N/A Malnutrition Alert Is there a minimum of two criteria No selected? Query Text:Check all the applicable criteria. A minimum of two criteria are recommended for diagnosis of either severe or non-severe malnutrition. Malnutrition Related to Morbid Obesity Malnutrition related to morbid obesity No Intervention/Recommendation Comments 1. Continue with regular diet as ordered. 2. Monitor PO intake, wt, labs and skin integrity 3. F/U as low risk in 7 days Expected Outcomes/Goals Expected Outcomes/Goals 1. PO intake to meet at least 75% of nutritional needs. 2. Wt stability, skin to remain intact, labs to approach WNL.
--- NOTE | 2019-04-22 19:41 | Progress Notes ---
DATE: 04/22/2019 SUBJECTIVE: The patient was seen and evaluated. The patient's chart reviewed. Covering for Dr. Mason. Today on [id number] evaluation denies any side effects to medication. Sleeping well. MENTAL STATUS EXAMINATION: Stable from last visit. ASSESSMENT AND PLAN: A 73-year-old female with severe dementia, working closely with mental patient case coordinator for safe disposition to a lower level. JOB# [id number]
[2019-04-23] MEDS: Multivitamin w/ Minerals Tab PO SCH (08:54)
--- NOTE | 2019-04-23 12:28 | Internal Medicine Prog Note ---
Internal Medicine Subjective - Subjective Patient seen and examined:: with staff, chart reviewed Patient is:: awake, verbal, interactive, ambulating, confused Per staff patient has:: no adverse event, no episodes of fall, eating well, tolerating meds Internal Medicine Objective - Results Recent Labs: Laboratory Last Values POC Glucose 188 MG/DL (70 - 105) H 02/02/19 19:27 Triglycerides 162 mg/dL (<150) H 12/31/18 08:04 Cholesterol 234 mg/dL (<200) H 12/31/18 08:04 LDL Cholesterol Direct 155 mg/dL (75-193) 12/31/18 08:04 HDL Cholesterol 62 mg/dL (23-92) 12/31/18 08:04 - Physical Exam Vitals and I&O: Vital Signs Temp 97.6 F 04/23/19 06:54 Pulse 89 04/23/19 06:54 Resp 18 04/23/19 06:54 BP 116/71 04/23/19 06:54 Pulse Ox 98 04/23/19 06:54 Intake & Output 04/22/19 04/23/19 04/23/19 18:59 06:59 18:59 Intake Total 900 120 Balance 900 120 Intake: Oral 900 120 Other: # Voids 3 3 # Bowel Movements 1 Active Medications: Current Medications Acetaminophen (Tylenol) 650 mg PO Q4HR PRN PRN Reason: Mild Pain / Temp above 100 Al Hydrox/Mg Hydrox/Simethicone (Maalox) 30 ml PO Q4HR PRN PRN Reason: GI DISTRESS Donepezil HCl (Aricept) 10 mg PO HS [facility] Last Admin: 04/22/19 21:51 Dose: 10 mg Magnesium Hydroxide (Milk Of Magnesia) 30 ml PO HS PRN PRN Reason: Constipation General: thin, appears younger HEENT: NC/AT, PERRLA, EOMI Neck: Supple, No JVD, No thyromegaly Lungs: CTAB Cardiovascular: RRR, Normal S1, Normal S2, with murmur Abdomen: soft, thin, non-distended, positive bowel sound Extremities: excoriation Internal Medicine Assmt/Plan - Assessment Assessment: alzheimers dementa elevated chol djd osteoporosis - Plan Plan: fall precaution nutritional support cont on calcium supplemetn will cont to follow dw rn add mvi Nutritional Asmnt/Malnutr-PDOC - Dietary Evaluation Malnutrition Findings (Please click <Entered> for more info): Nutritional Asmnt/Malnutrition Start: 01/04/19 09: 50 Text: Status: Complete Freq: Protocol: Document 01/04/19 14:59 LCJOSEG (Rec: 01/04/19 15:06 LCCOREY [id number]) Nutritional Asmnt/Malnutrition Patient General Information Nutritional Screening Moderate Risk Diagnosis psychosis Pertinent Medical Hx/Surgical Hx dementia, DJD, osteoporosis Subjective Information pt seen lying in bed, awake and alert, stated food has beed great. Pt is not a big eater. Encourage to eat balanced meals and pt agreed with it. Per EMR, PO intake 75 -100% Current Diet Order/ Nutrition Support regular Pertinent Medications reviewed Pertinent Labs 12/31 reviewed Nutritional Hx/Data Height 1.65 m Height (Calculated Centimeters) 165.1 Current Weight (lbs) 74.843 kg Weight (Calculated Kilograms) 74.8 Weight (Calculated Grams) 52197.7 [place] Body Weight 125 Body Mass Index (BMI) 27.4 Weight Status Overweight GI Symptoms GI Symptoms None Last BM 01/04 x 2 Difficult in: None Skin Integrity/Comment: intact Current %PO Good (75-100%) Estimated Nutritional Goals BEE in Kcals: Using Current wt Calories/Kcals/Kg 23-27 Kcals Calculated 9983-9038 Protein: Using Current wt Protein g/k.8 Protein Calculated 60 Fluid: ml 1725-1998ml (1ml/kcal) Nutritional Problem No current Nutrition Prob Problem N/A Malnutrition Alert Is there a minimum of two criteria No selected? Query Text:Check all the applicable criteria. A minimum of two criteria are recommended for diagnosis of either severe or non-severe malnutrition. Malnutrition Related to Morbid Obesity Malnutrition related to morbid obesity No Intervention/Recommendation Comments 1. Continue with regular diet as ordered. 2. Monitor PO intake, wt, labs and skin integrity 3. F/U as low risk in 7 days Expected Outcomes/Goals Expected Outcomes/Goals 1. PO intake to meet at least 75% of nutritional needs. 2. Wt stability, skin to remain intact, labs to approach WNL.
--- NOTE | 2019-04-23 23:06 | Progress Notes ---
DATE: 04/23/2019 SUBJECTIVE: Case was discussed with staff of the patient, reviewed records. This is a well-known case to me, have seen her many times, covering for Dr. Mason. The patient is currently at her basic level of functioning. She is sleeping well, eating well. No suicidal ideation, no homicidal ideation, and no paranoia. Working on placement. We will continue to work with the patient in group therapy, milieu therapy, and adjust the medications as needed. JOB# [id number]
[2019-04-24] MEDS: Multivitamin w/ Minerals Tab PO SCH (08:15)
--- NOTE | 2019-04-24 12:07 | Internal Medicine Prog Note ---
Internal Medicine Subjective - Subjective Patient seen and examined:: with staff, chart reviewed Patient is:: awake, verbal, interactive, ambulating, confused Per staff patient has:: no adverse event, no episodes of fall, eating well, tolerating meds Internal Medicine Objective - Results Recent Labs: Laboratory Last Values POC Glucose 188 MG/DL (70 - 105) H 02/02/19 19:27 Triglycerides 162 mg/dL (<150) H 12/31/18 08:04 Cholesterol 234 mg/dL (<200) H 12/31/18 08:04 LDL Cholesterol Direct 155 mg/dL (75-193) 12/31/18 08:04 HDL Cholesterol 62 mg/dL (23-92) 12/31/18 08:04 - Physical Exam Vitals and I&O: Vital Signs Temp 98 F 04/24/19 05:39 Pulse 62 04/24/19 05:39 Resp 18 04/24/19 08:00 BP 115/55 04/24/19 05:39 Pulse Ox 95 04/24/19 05:39 Intake & Output 04/23/19 04/24/19 04/24/19 18:59 06:59 18:59 Intake Total 1000 240 Balance 1000 240 Intake: Oral 1000 240 Other: # Voids 4 3 # Bowel Movements 1 0 Active Medications: Current Medications Acetaminophen (Tylenol) 650 mg PO Q4HR PRN PRN Reason: Mild Pain / Temp above 100 Al Hydrox/Mg Hydrox/Simethicone (Maalox) 30 ml PO Q4HR PRN PRN Reason: GI DISTRESS Donepezil HCl (Aricept) 10 mg PO HS [facility] Last Admin: 04/23/19 21:13 Dose: 10 mg Magnesium Hydroxide (Milk Of Magnesia) 30 ml PO HS PRN PRN Reason: Constipation General: thin, appears younger HEENT: NC/AT, PERRLA, EOMI Neck: Supple, No JVD, No thyromegaly Lungs: CTAB Cardiovascular: RRR, Normal S1, Normal S2, with murmur Abdomen: soft, thin, non-distended, positive bowel sound Extremities: excoriation Internal Medicine Assmt/Plan - Assessment Assessment: alzheimers dementa elevated chol djd osteoporosis - Plan Plan: fall precaution nutritional support cont on calcium supplemetn will cont to follow dw rn add mvi Nutritional Asmnt/Malnutr-PDOC - Dietary Evaluation Malnutrition Findings (Please click <Entered> for more info): Nutritional Asmnt/Malnutrition Start: 01/04/19 09: 50 Text: Status: Complete Freq: Protocol: Document 01/04/19 14:59 ANUELG (Rec: 01/04/19 15:06 TARIK [id number]) Nutritional Asmnt/Malnutrition Patient General Information Nutritional Screening Moderate Risk Diagnosis psychosis Pertinent Medical Hx/Surgical Hx dementia, DJD, osteoporosis Subjective Information pt seen lying in bed, awake and alert, stated food has beed great. Pt is not a big eater. Encourage to eat balanced meals and pt agreed with it. Per EMR, PO intake 75 -100% Current Diet Order/ Nutrition Support regular Pertinent Medications reviewed Pertinent Labs 12/31 reviewed Nutritional Hx/Data Height 1.65 m Height (Calculated Centimeters) 165.1 Current Weight (lbs) 74.843 kg Weight (Calculated Kilograms) 74.8 Weight (Calculated Grams) 84368.7 [place] Body Weight 125 Body Mass Index (BMI) 27.4 Weight Status Overweight GI Symptoms GI Symptoms None Last BM 01/04 x 2 Difficult in: None Skin Integrity/Comment: intact Current %PO Good (75-100%) Estimated Nutritional Goals BEE in Kcals: Using Current wt Calories/Kcals/Kg 23-27 Kcals Calculated 7255-0849 Protein: Using Current wt Protein g/k.8 Protein Calculated 60 Fluid: ml 1725-1998ml (1ml/kcal) Nutritional Problem No current Nutrition Prob Problem N/A Malnutrition Alert Is there a minimum of two criteria No selected? Query Text:Check all the applicable criteria. A minimum of two criteria are recommended for diagnosis of either severe or non-severe malnutrition. Malnutrition Related to Morbid Obesity Malnutrition related to morbid obesity No Intervention/Recommendation Comments 1. Continue with regular diet as ordered. 2. Monitor PO intake, wt, labs and skin integrity 3. F/U as low risk in 7 days Expected Outcomes/Goals Expected Outcomes/Goals 1. PO intake to meet at least 75% of nutritional needs. 2. Wt stability, skin to remain intact, labs to approach WNL.
--- NOTE | 2019-04-24 14:19 | Progress Notes ---
DATE: 04/24/2019 SUBJECTIVE: Case was discussed with staff of the patient, reviewed records. The patient continues to be awaiting placement. She is sleeping well, eating well. She denies any current intent to harm herself or anyone. She denies any visual hallucinations or paranoia. Denies having any side effects. Awaiting placement. No side effects with the medication, no sedation, no nausea. We will continue outpatient group therapy, milieu therapy, and adjust medication as needed. [facility]# [id number]
[2019-04-25] MEDS: Multivitamin w/ Minerals Tab PO SCH (12:01)
--- NOTE | 2019-04-25 12:41 | Internal Medicine Prog Note ---
Internal Medicine Subjective - Subjective Patient seen and examined:: with staff, chart reviewed Patient is:: awake, verbal, interactive, ambulating, confused Per staff patient has:: no adverse event, no episodes of fall, eating well, tolerating meds Internal Medicine Objective - Results Recent Labs: Laboratory Last Values POC Glucose 188 MG/DL (70 - 105) H 02/02/19 19:27 Triglycerides 162 mg/dL (<150) H 12/31/18 08:04 Cholesterol 234 mg/dL (<200) H 12/31/18 08:04 LDL Cholesterol Direct 155 mg/dL (75-193) 12/31/18 08:04 HDL Cholesterol 62 mg/dL (23-92) 12/31/18 08:04 - Physical Exam Vitals and I&O: Vital Signs Temp 97.8 F 04/25/19 06:22 Pulse 51 04/25/19 06:22 Resp 19 04/25/19 06:22 BP 108/68 04/25/19 06:22 Pulse Ox 94 04/25/19 06:22 Intake & Output 04/24/19 04/25/19 04/25/19 18:59 06:59 18:59 Intake Total 900 240 Balance 900 240 Intake: Oral 900 240 Other: # Voids 3 2 # Bowel Movements 1 0 Active Medications: Current Medications Acetaminophen (Tylenol) 650 mg PO Q4HR PRN PRN Reason: Mild Pain / Temp above 100 Al Hydrox/Mg Hydrox/Simethicone (Maalox) 30 ml PO Q4HR PRN PRN Reason: GI DISTRESS Donepezil HCl (Aricept) 10 mg PO HS [facility] Last Admin: 04/24/19 20:50 Dose: 10 mg Magnesium Hydroxide (Milk Of Magnesia) 30 ml PO HS PRN PRN Reason: Constipation General: thin, appears younger HEENT: NC/AT, PERRLA, EOMI Neck: Supple, No JVD, No thyromegaly Lungs: CTAB Cardiovascular: RRR, Normal S1, Normal S2, with murmur Abdomen: soft, thin, non-distended, positive bowel sound Extremities: excoriation Internal Medicine Assmt/Plan - Assessment Assessment: alzheimers dementa elevated chol djd osteoporosis - Plan Plan: fall precaution nutritional support cont on calcium supplemetn will cont to follow dw rn add mvi Nutritional Asmnt/Malnutr-PDOC - Dietary Evaluation Malnutrition Findings (Please click <Entered> for more info): Nutritional Asmnt/Malnutrition Start: 01/04/19 09: 50 Text: Status: Complete Freq: Protocol: Document 01/04/19 14:59 LCJOSEG (Rec: 01/04/19 15:06 TARIK [id number]) Nutritional Asmnt/Malnutrition Patient General Information Nutritional Screening Moderate Risk Diagnosis psychosis Pertinent Medical Hx/Surgical Hx dementia, DJD, osteoporosis Subjective Information pt seen lying in bed, awake and alert, stated food has beed great. Pt is not a big eater. Encourage to eat balanced meals and pt agreed with it. Per EMR, PO intake 75 -100% Current Diet Order/ Nutrition Support regular Pertinent Medications reviewed Pertinent Labs 12/31 reviewed Nutritional Hx/Data Height 1.65 m Height (Calculated Centimeters) 165.1 Current Weight (lbs) 74.843 kg Weight (Calculated Kilograms) 74.8 Weight (Calculated Grams) 49370.7 [place] Body Weight 125 Body Mass Index (BMI) 27.4 Weight Status Overweight GI Symptoms GI Symptoms None Last BM 01/04 x 2 Difficult in: None Skin Integrity/Comment: intact Current %PO Good (75-100%) Estimated Nutritional Goals BEE in Kcals: Using Current wt Calories/Kcals/Kg 23-27 Kcals Calculated 7446-2844 Protein: Using Current wt Protein g/k.8 Protein Calculated 60 Fluid: ml 1725-1998ml (1ml/kcal) Nutritional Problem No current Nutrition Prob Problem N/A Malnutrition Alert Is there a minimum of two criteria No selected? Query Text:Check all the applicable criteria. A minimum of two criteria are recommended for diagnosis of either severe or non-severe malnutrition. Malnutrition Related to Morbid Obesity Malnutrition related to morbid obesity No Intervention/Recommendation Comments 1. Continue with regular diet as ordered. 2. Monitor PO intake, wt, labs and skin integrity 3. F/U as low risk in 7 days Expected Outcomes/Goals Expected Outcomes/Goals 1. PO intake to meet at least 75% of nutritional needs. 2. Wt stability, skin to remain intact, labs to approach WNL.
--- NOTE | 2019-04-25 12:50 | Progress Notes ---
DATE: SUBJECTIVE: Chart reviewed and the patient interviewed. Also discussed the patient's condition with the staff and reviewed records and labs. The patient is calm and cooperative. The patient is less agitated and less confused. Also, interacting more with peers and others. She is still confused. She is compliant with taking her medications. ASSESSMENT: The patient is calm and cooperative and waiting for placement. TREATMENT PLAN: Continue current treatment and current medications and continue to work on placement issue and discharge plans. The patient interviewed yesterday by the facility and waiting to hear the outcome. JOB# [id number]
[2019-04-26] MEDS: Multivitamin w/ Minerals Tab PO SCH (09:13)
--- NOTE | 2019-04-26 11:37 | Internal Medicine Prog Note ---
Internal Medicine Subjective - Subjective Patient seen and examined:: with staff, chart reviewed Patient is:: awake, verbal, interactive, ambulating, confused Per staff patient has:: no adverse event, no episodes of fall, eating well, tolerating meds Internal Medicine Objective - Results Recent Labs: Laboratory Last Values POC Glucose 188 MG/DL (70 - 105) H 02/02/19 19:27 Triglycerides 162 mg/dL (<150) H 12/31/18 08:04 Cholesterol 234 mg/dL (<200) H 12/31/18 08:04 LDL Cholesterol Direct 155 mg/dL (75-193) 12/31/18 08:04 HDL Cholesterol 62 mg/dL (23-92) 12/31/18 08:04 - Physical Exam Vitals and I&O: Vital Signs Temp 97.5 F 04/26/19 06:34 Pulse 74 04/26/19 06:34 Resp 18 04/26/19 06:34 BP 111/56 04/26/19 06:34 Pulse Ox 95 04/26/19 06:34 Intake & Output 04/25/19 04/26/19 04/26/19 18:59 06:59 18:59 Intake Total 900 360 Balance 900 360 Intake: Oral 900 360 Other: # Voids 4 3 # Bowel Movements 1 0 Active Medications: Current Medications Acetaminophen (Tylenol) 650 mg PO Q4HR PRN PRN Reason: Mild Pain / Temp above 100 Al Hydrox/Mg Hydrox/Simethicone (Maalox) 30 ml PO Q4HR PRN PRN Reason: GI DISTRESS Donepezil HCl (Aricept) 10 mg PO HS [facility] Last Admin: 04/25/19 21:10 Dose: 10 mg Magnesium Hydroxide (Milk Of Magnesia) 30 ml PO HS PRN PRN Reason: Constipation General: thin, appears younger HEENT: NC/AT, PERRLA, EOMI Neck: Supple, No JVD, No thyromegaly Lungs: CTAB Cardiovascular: RRR, Normal S1, Normal S2, with murmur Abdomen: soft, thin, non-distended, positive bowel sound Extremities: excoriation Internal Medicine Assmt/Plan - Assessment Assessment: alzheimers dementa elevated chol djd osteoporosis - Plan Plan: fall precaution nutritional support cont on calcium supplemetn will cont to follow dw rn add mvi Nutritional Asmnt/Malnutr-PDOC - Dietary Evaluation Malnutrition Findings (Please click <Entered> for more info): Nutritional Asmnt/Malnutrition Start: 01/04/19 09: 50 Text: Status: Complete Freq: Protocol: Document 01/04/19 14:59 LCJOSEG (Rec: 01/04/19 15:06 TARIK [id number]) Nutritional Asmnt/Malnutrition Patient General Information Nutritional Screening Moderate Risk Diagnosis psychosis Pertinent Medical Hx/Surgical Hx dementia, DJD, osteoporosis Subjective Information pt seen lying in bed, awake and alert, stated food has beed great. Pt is not a big eater. Encourage to eat balanced meals and pt agreed with it. Per EMR, PO intake 75 -100% Current Diet Order/ Nutrition Support regular Pertinent Medications reviewed Pertinent Labs 12/31 reviewed Nutritional Hx/Data Height 1.65 m Height (Calculated Centimeters) 165.1 Current Weight (lbs) 74.843 kg Weight (Calculated Kilograms) 74.8 Weight (Calculated Grams) 62824.7 [place] Body Weight 125 Body Mass Index (BMI) 27.4 Weight Status Overweight GI Symptoms GI Symptoms None Last BM 01/04 x 2 Difficult in: None Skin Integrity/Comment: intact Current %PO Good (75-100%) Estimated Nutritional Goals BEE in Kcals: Using Current wt Calories/Kcals/Kg 23-27 Kcals Calculated 5558-7226 Protein: Using Current wt Protein g/k.8 Protein Calculated 60 Fluid: ml 1725-1998ml (1ml/kcal) Nutritional Problem No current Nutrition Prob Problem N/A Malnutrition Alert Is there a minimum of two criteria No selected? Query Text:Check all the applicable criteria. A minimum of two criteria are recommended for diagnosis of either severe or non-severe malnutrition. Malnutrition Related to Morbid Obesity Malnutrition related to morbid obesity No Intervention/Recommendation Comments 1. Continue with regular diet as ordered. 2. Monitor PO intake, wt, labs and skin integrity 3. F/U as low risk in 7 days Expected Outcomes/Goals Expected Outcomes/Goals 1. PO intake to meet at least 75% of nutritional needs. 2. Wt stability, skin to remain intact, labs to approach WNL.
--- NOTE | 2019-04-26 22:19 | Progress Notes ---
DATE: 04/26/2019 SUBJECTIVE: The patient calmer, less agitated, ongoing confusional state, waiting for placement, cannot take care of her basic needs, considered gravely disabled, otherwise resting comfortably, sitting, socializing with others. No distress. No side effects. JOB# [id number]
[2019-04-27] MEDS: Multivitamin w/ Minerals Tab PO SCH (08:39)
--- NOTE | 2019-04-27 12:13 | Internal Medicine Prog Note ---
Internal Medicine Subjective - Subjective Patient seen and examined:: with staff, chart reviewed Patient is:: awake, verbal, interactive, ambulating, confused Per staff patient has:: no adverse event, no episodes of fall, eating well, tolerating meds Internal Medicine Objective - Results Recent Labs: Laboratory Last Values POC Glucose 188 MG/DL (70 - 105) H 02/02/19 19:27 Triglycerides 162 mg/dL (<150) H 12/31/18 08:04 Cholesterol 234 mg/dL (<200) H 12/31/18 08:04 LDL Cholesterol Direct 155 mg/dL (75-193) 12/31/18 08:04 HDL Cholesterol 62 mg/dL (23-92) 12/31/18 08:04 - Physical Exam Vitals and I&O: Vital Signs Temp 97 F 04/27/19 06:33 Pulse 85 04/27/19 06:33 Resp 18 04/27/19 06:33 BP 117/72 04/27/19 06:33 Pulse Ox 96 04/27/19 06:33 Intake & Output 04/26/19 04/27/19 04/27/19 18:59 06:59 18:59 Intake Total 1300 120 Balance 1300 120 Intake: Oral 1300 120 Other: # Voids 3 3 # Bowel Movements 0 Active Medications: Current Medications Acetaminophen (Tylenol) 650 mg PO Q4HR PRN PRN Reason: Mild Pain / Temp above 100 Al Hydrox/Mg Hydrox/Simethicone (Maalox) 30 ml PO Q4HR PRN PRN Reason: GI DISTRESS Donepezil HCl (Aricept) 10 mg PO HS [facility] Last Admin: 04/26/19 21:51 Dose: 10 mg Magnesium Hydroxide (Milk Of Magnesia) 30 ml PO HS PRN PRN Reason: Constipation General: thin, appears younger HEENT: NC/AT, PERRLA, EOMI Neck: Supple, No JVD, No thyromegaly Lungs: CTAB Cardiovascular: RRR, Normal S1, Normal S2, with murmur Abdomen: soft, thin, non-distended, positive bowel sound Extremities: excoriation Internal Medicine Assmt/Plan - Assessment Assessment: alzheimers dementa elevated chol djd osteoporosis - Plan Plan: fall precaution nutritional support cont on calcium supplemetn will cont to follow dw rn add mvi Nutritional Asmnt/Malnutr-PDOC - Dietary Evaluation Malnutrition Findings (Please click <Entered> for more info): Nutritional Asmnt/Malnutrition Start: 01/04/19 09: 50 Text: Status: Complete Freq: Protocol: Document 01/04/19 14:59 MICHICOREY (Rec: 01/04/19 15:06 ANUELRitika [email or web address]) Nutritional Asmnt/Malnutrition Patient General Information Nutritional Screening Moderate Risk Diagnosis psychosis Pertinent Medical Hx/Surgical Hx dementia, DJD, osteoporosis Subjective Information pt seen lying in bed, awake and alert, stated food has beed great. Pt is not a big eater. Encourage to eat balanced meals and pt agreed with it. Per EMR, PO intake 75 -100% Current Diet Order/ Nutrition Support regular Pertinent Medications reviewed Pertinent Labs 12/31 reviewed Nutritional Hx/Data Height 1.65 m Height (Calculated Centimeters) 165.1 Current Weight (lbs) 74.843 kg Weight (Calculated Kilograms) 74.8 Weight (Calculated Grams) 80483.7 [place] Body Weight 125 Body Mass Index (BMI) 27.4 Weight Status Overweight GI Symptoms GI Symptoms None Last BM 01/04 x 2 Difficult in: None Skin Integrity/Comment: intact Current %PO Good (75-100%) Estimated Nutritional Goals BEE in Kcals: Using Current wt Calories/Kcals/Kg 23-27 Kcals Calculated 1875-5973 Protein: Using Current wt Protein g/k.8 Protein Calculated 60 Fluid: ml 1725-1998ml (1ml/kcal) Nutritional Problem No current Nutrition Prob Problem N/A Malnutrition Alert Is there a minimum of two criteria No selected? Query Text:Check all the applicable criteria. A minimum of two criteria are recommended for diagnosis of either severe or non-severe malnutrition. Malnutrition Related to Morbid Obesity Malnutrition related to morbid obesity No Intervention/Recommendation Comments 1. Continue with regular diet as ordered. 2. Monitor PO intake, wt, labs and skin integrity 3. F/U as low risk in 7 days Expected Outcomes/Goals Expected Outcomes/Goals 1. PO intake to meet at least 75% of nutritional needs. 2. Wt stability, skin to remain intact, labs to approach WNL.
--- NOTE | 2019-04-27 22:44 | Progress Notes ---
DATE: 04/27/2019 SUBJECTIVE: The patient is currently in the hospital. She remains with ongoing confusion. I tried to talk to her today, but she is very confused, disoriented, really has no idea what is going on. Generally calmer, more cooperative, confusion is still pretty prevalent per adoption social worker. We are pending a safe discharge plan. The patient is able to verbalize some of her basic needs. AO to essentially name and place only. No complaints, resting comfortably. She is pretty forgetful, unable to really care for basic needs. JOB# [id number]
[2019-04-28] MEDS: Multivitamin w/ Minerals Tab PO SCH (08:06)
--- NOTE | 2019-04-28 11:23 | Internal Medicine Prog Note ---
Internal Medicine Subjective - Subjective Service Date: 04/28/19 Patient is:: awake, verbal, interactive, ambulating, confused Per staff patient has:: no adverse event, no episodes of fall, eating well, tolerating meds Internal Medicine Objective - Results Recent Labs: Laboratory Last Values POC Glucose 188 MG/DL (70 - 105) H 02/02/19 19:27 Triglycerides 162 mg/dL (<150) H 12/31/18 08:04 Cholesterol 234 mg/dL (<200) H 12/31/18 08:04 LDL Cholesterol Direct 155 mg/dL (75-193) 12/31/18 08:04 HDL Cholesterol 62 mg/dL (23-92) 12/31/18 08:04 - Physical Exam Vitals and I&O: Vital Signs Temp 97.8 F 04/27/19 20:00 Pulse 68 04/27/19 20:00 Resp 18 04/27/19 20:00 BP 105/65 04/27/19 20:00 Pulse Ox 95 04/27/19 20:00 Intake & Output 04/27/19 04/28/19 04/28/19 18:59 06:59 18:59 Intake Total 900 Balance 900 Intake: Oral 900 Other: # Voids 3 # Bowel Movements 1 Active Medications: Current Medications Acetaminophen (Tylenol) 650 mg PO Q4HR PRN PRN Reason: Mild Pain / Temp above 100 Al Hydrox/Mg Hydrox/Simethicone (Maalox) 30 ml PO Q4HR PRN PRN Reason: GI DISTRESS Donepezil HCl (Aricept) 10 mg PO HS [facility] Last Admin: 04/27/19 20:46 Dose: 10 mg Magnesium Hydroxide (Milk Of Magnesia) 30 ml PO HS PRN PRN Reason: Constipation General: thin, appears younger HEENT: NC/AT, PERRLA, EOMI Neck: Supple, No JVD, No thyromegaly Lungs: CTAB Cardiovascular: RRR, Normal S1, Normal S2, with murmur Abdomen: soft, thin, non-distended, positive bowel sound Extremities: excoriation Internal Medicine Assmt/Plan - Assessment Assessment: alzheimers dementa elevated chol djd osteoporosis - Plan Plan: fall precaution nutritional support cont on calcium supplemetn will cont to follow tom rn Nutritional Asmnt/Malnutr-PDOC - Dietary Evaluation Malnutrition Findings (Please click <Entered> for more info): Nutritional Asmnt/Malnutrition Start: 01/04/19 09: 50 Text: Status: Complete Freq: Protocol: Document 01/04/19 14:59 MICHICOREY (Rec: 01/04/19 15:06 TARIK [email or web address]) Nutritional Asmnt/Malnutrition Patient General Information Nutritional Screening Moderate Risk Diagnosis psychosis Pertinent Medical Hx/Surgical Hx dementia, DJD, osteoporosis Subjective Information pt seen lying in bed, awake and alert, stated food has beed great. Pt is not a big eater. Encourage to eat balanced meals and pt agreed with it. Per EMR, PO intake 75 -100% Current Diet Order/ Nutrition Support regular Pertinent Medications reviewed Pertinent Labs 12/31 reviewed Nutritional Hx/Data Height 5 ft 5 in Height (Calculated Centimeters) 165.1 Current Weight (lbs) 165 lb Weight (Calculated Kilograms) 74.8 Weight (Calculated Grams) 49865.7 [place] Body Weight 125 Body Mass Index (BMI) 27.4 Weight Status Overweight GI Symptoms GI Symptoms None Last BM 01/04 x 2 Difficult in: None Skin Integrity/Comment: intact Current %PO Good (75-100%) Estimated Nutritional Goals BEE in Kcals: Using Current wt Calories/Kcals/Kg 23-27 Kcals Calculated 6304-6177 Protein: Using Current wt Protein g/k.8 Protein Calculated 60 Fluid: ml 1725-1998ml (1ml/kcal) Nutritional Problem No current Nutrition Prob Problem N/A Malnutrition Alert Is there a minimum of two criteria No selected? Query Text:Check all the applicable criteria. A minimum of two criteria are recommended for diagnosis of either severe or non-severe malnutrition. Malnutrition Related to Morbid Obesity Malnutrition related to morbid obesity No Intervention/Recommendation Comments 1. Continue with regular diet as ordered. 2. Monitor PO intake, wt, labs and skin integrity 3. F/U as low risk in 7 days Expected Outcomes/Goals Expected Outcomes/Goals 1. PO intake to meet at least 75% of nutritional needs. 2. Wt stability, skin to remain intact, labs to approach WNL.
--- NOTE | 2019-04-28 19:03 | Progress Notes ---
DATE: 04/28/2019 SUBJECTIVE: The patient in the hospital, confused, but calm on exam, pleasant, pacing up and down the unit, but no events, using front wheel walker, poor orientation to name, place. No agitation. The patient has some funds in the bank, unable to place at this time. We are working with the court system and trying to place her. She slept about 7 hours, unable to care for basic needs and we have not been able to confirm placements. We will continue to monitor on an inpatient unit. The patient currently gravely disabled, too confused to take care for self. The patient had a court date back in January. PLAN: We will continue to monitor. JOB# [id number]
[2019-04-29] MEDS: Multivitamin w/ Minerals Tab PO SCH (08:54)
--- NOTE | 2019-04-29 11:34 | Internal Medicine Prog Note ---
Internal Medicine Subjective - Subjective Service Date: 04/29/19 Patient is:: awake, verbal, interactive, ambulating, confused Per staff patient has:: no adverse event, no episodes of fall, eating well, tolerating meds Internal Medicine Objective - Results Recent Labs: Laboratory Last Values POC Glucose 188 MG/DL (70 - 105) H 02/02/19 19:27 Triglycerides 162 mg/dL (<150) H 12/31/18 08:04 Cholesterol 234 mg/dL (<200) H 12/31/18 08:04 LDL Cholesterol Direct 155 mg/dL (75-193) 12/31/18 08:04 HDL Cholesterol 62 mg/dL (23-92) 12/31/18 08:04 - Physical Exam Vitals and I&O: Vital Signs Temp 98 F 04/29/19 06:21 Pulse 70 04/29/19 06:21 Resp 20 04/29/19 06:21 BP 117/74 04/29/19 06:21 Pulse Ox 99 04/29/19 06:21 Intake & Output 04/28/19 04/29/19 04/29/19 18:59 06:59 18:59 Intake Total 1000 240 Balance 1000 240 Intake: Oral 1000 240 Other: # Voids 4 1 # Bowel Movements 1 Active Medications: Current Medications Acetaminophen (Tylenol) 650 mg PO Q4HR PRN PRN Reason: Mild Pain / Temp above 100 Al Hydrox/Mg Hydrox/Simethicone (Maalox) 30 ml PO Q4HR PRN PRN Reason: GI DISTRESS Donepezil HCl (Aricept) 10 mg PO HS [facility] Last Admin: 04/28/19 20:27 Dose: 10 mg Magnesium Hydroxide (Milk Of Magnesia) 30 ml PO HS PRN PRN Reason: Constipation General: thin, appears younger HEENT: NC/AT, PERRLA, EOMI Neck: Supple, No JVD, No thyromegaly Lungs: CTAB Cardiovascular: RRR, Normal S1, Normal S2, with murmur Abdomen: soft, thin, non-distended, positive bowel sound Extremities: excoriation Internal Medicine Assmt/Plan - Assessment Assessment: alzheimers dementa elevated chol djd osteoporosis - Plan Plan: fall precaution nutritional support cont on calcium supplemetn will cont to follow tom rn Nutritional Asmnt/Malnutr-PDOC - Dietary Evaluation Malnutrition Findings (Please click <Entered> for more info): Nutritional Asmnt/Malnutrition Start: 01/04/19 09: 50 Text: Status: Complete Freq: Protocol: Document 01/04/19 14:59 MICHICOREY (Rec: 01/04/19 15:06 MICHICOREY [id number]) Nutritional Asmnt/Malnutrition Patient General Information Nutritional Screening Moderate Risk Diagnosis psychosis Pertinent Medical Hx/Surgical Hx dementia, DJD, osteoporosis Subjective Information pt seen lying in bed, awake and alert, stated food has beed great. Pt is not a big eater. Encourage to eat balanced meals and pt agreed with it. Per EMR, PO intake 75 -100% Current Diet Order/ Nutrition Support regular Pertinent Medications reviewed Pertinent Labs 12/31 reviewed Nutritional Hx/Data Height 5 ft 5 in Height (Calculated Centimeters) 165.1 Current Weight (lbs) 165 lb Weight (Calculated Kilograms) 74.8 Weight (Calculated Grams) 09538.7 [place] Body Weight 125 Body Mass Index (BMI) 27.4 Weight Status Overweight GI Symptoms GI Symptoms None Last BM 01/04 x 2 Difficult in: None Skin Integrity/Comment: intact Current %PO Good (75-100%) Estimated Nutritional Goals BEE in Kcals: Using Current wt Calories/Kcals/Kg 23-27 Kcals Calculated 2588-5000 Protein: Using Current wt Protein g/k.8 Protein Calculated 60 Fluid: ml 1725-1998ml (1ml/kcal) Nutritional Problem No current Nutrition Prob Problem N/A Malnutrition Alert Is there a minimum of two criteria No selected? Query Text:Check all the applicable criteria. A minimum of two criteria are recommended for diagnosis of either severe or non-severe malnutrition. Malnutrition Related to Morbid Obesity Malnutrition related to morbid obesity No Intervention/Recommendation Comments 1. Continue with regular diet as ordered. 2. Monitor PO intake, wt, labs and skin integrity 3. F/U as low risk in 7 days Expected Outcomes/Goals Expected Outcomes/Goals 1. PO intake to meet at least 75% of nutritional needs. 2. Wt stability, skin to remain intact, labs to approach WNL.
--- NOTE | 2019-04-29 20:29 | Progress Notes ---
DATE: 04/29/2019 SUBJECTIVE: The patient is currently in the hospital. Slept for about 10 hours, confused, very forgetful, easily agitated, does not really know what is going on. When I go to talk to her today, she does not want to engage with me, sleeping, arousable, able to make her needs known per staff, ongoing confusional state. We are trying to help her with placement. AO to name and place only, does not really know what is going on. Still stating that she wants to go home. MEDICATIONS: Reviewed. PLAN: We will continue to monitor closely. JOB# [id number]
[2019-04-30] MEDS: Multivitamin w/ Minerals Tab PO SCH (11:10)
--- NOTE | 2019-04-30 15:17 | Internal Medicine Prog Note ---
Internal Medicine Subjective - Subjective Patient seen and examined:: with staff, chart reviewed Patient is:: awake, verbal, interactive, ambulating, confused Per staff patient has:: no adverse event, no episodes of fall, eating well, tolerating meds Internal Medicine Objective - Results Recent Labs: Laboratory Last Values POC Glucose 188 MG/DL (70 - 105) H 02/02/19 19:27 Triglycerides 162 mg/dL (<150) H 12/31/18 08:04 Cholesterol 234 mg/dL (<200) H 12/31/18 08:04 LDL Cholesterol Direct 155 mg/dL (75-193) 12/31/18 08:04 HDL Cholesterol 62 mg/dL (23-92) 12/31/18 08:04 - Physical Exam Vitals and I&O: Vital Signs Temp 98 F 04/30/19 06:03 Pulse 65 04/30/19 06:03 Resp 19 04/30/19 06:03 BP 115/72 04/30/19 06:03 Pulse Ox 98 04/30/19 06:03 Intake & Output 04/29/19 04/30/19 04/30/19 18:59 06:59 18:59 Intake Total 900 600 Balance 900 600 Intake: Oral 900 600 Other: # Voids 3 1 # Bowel Movements 1 Active Medications: Current Medications Donepezil HCl (Aricept) 10 mg PO HS [facility] Last Admin: 04/29/19 21:06 Dose: 10 mg General: thin, appears younger HEENT: NC/AT, PERRLA, EOMI Neck: Supple, No JVD, No thyromegaly Lungs: CTAB Cardiovascular: RRR, Normal S1, Normal S2, with murmur Abdomen: soft, thin, non-distended, positive bowel sound Extremities: excoriation Internal Medicine Assmt/Plan - Assessment Assessment: alzheimers dementa elevated chol djd osteoporosis - Plan Plan: fall precaution nutritional support cont on calcium supplemetn will cont to follow dw rn add mvi placement pending Nutritional Asmnt/Malnutr-PDOC - Dietary Evaluation Malnutrition Findings (Please click <Entered> for more info): Nutritional Asmnt/Malnutrition Start: 01/04/19 09: 50 Text: Status: Complete Freq: Protocol: Document 01/04/19 14:59 LCHENG (Rec: 01/04/19 15:06 LCHENG [email or web address]) Nutritional Asmnt/Malnutrition Patient General Information Nutritional Screening Moderate Risk Diagnosis psychosis Pertinent Medical Hx/Surgical Hx dementia, DJD, osteoporosis Subjective Information pt seen lying in bed, awake and alert, stated food has beed great. Pt is not a big eater. Encourage to eat balanced meals and pt agreed with it. Per EMR, PO intake 75 -100% Current Diet Order/ Nutrition Support regular Pertinent Medications reviewed Pertinent Labs 12/31 reviewed Nutritional Hx/Data Height 1.65 m Height (Calculated Centimeters) 165.1 Current Weight (lbs) 74.843 kg Weight (Calculated Kilograms) 74.8 Weight (Calculated Grams) 92177.7 [place] Body Weight 125 Body Mass Index (BMI) 27.4 Weight Status Overweight GI Symptoms GI Symptoms None Last BM 01/04 x 2 Difficult in: None Skin Integrity/Comment: intact Current %PO Good (75-100%) Estimated Nutritional Goals BEE in Kcals: Using Current wt Calories/Kcals/Kg 23-27 Kcals Calculated 9752-4121 Protein: Using Current wt Protein g/k.8 Protein Calculated 60 Fluid: ml 1725-1998ml (1ml/kcal) Nutritional Problem No current Nutrition Prob Problem N/A Malnutrition Alert Is there a minimum of two criteria No selected? Query Text:Check all the applicable criteria. A minimum of two criteria are recommended for diagnosis of either severe or non-severe malnutrition. Malnutrition Related to Morbid Obesity Malnutrition related to morbid obesity No Intervention/Recommendation Comments 1. Continue with regular diet as ordered. 2. Monitor PO intake, wt, labs and skin integrity 3. F/U as low risk in 7 days Expected Outcomes/Goals Expected Outcomes/Goals 1. PO intake to meet at least 75% of nutritional needs. 2. Wt stability, skin to remain intact, labs to approach WNL.
--- NOTE | 2019-04-30 19:46 | Progress Notes ---
DATE: 04/30/2019 SUBJECTIVE: The patient in the hospital, mostly forgetful, very sad, depressed. States that she wants to go home. States that it is 2007, states the month is June. She does not really know what is going on or where she is, mostly keeps to self, ongoing confusional state and unable to care for basic needs. No confirmed safe discharge plan in place. Medications were noted. We will continue to monitor. [facility]# [id number]
[2019-05-01] MEDS: Multivitamin w/ Minerals Tab PO SCH (09:16)
--- NOTE | 2019-05-01 12:29 | Internal Medicine Prog Note ---
Internal Medicine Subjective - Subjective Patient seen and examined:: with staff, chart reviewed Patient is:: awake, verbal, interactive, ambulating, confused Per staff patient has:: no adverse event, no episodes of fall, eating well, tolerating meds Internal Medicine Objective - Results Recent Labs: Laboratory Last Values POC Glucose 188 MG/DL (70 - 105) H 02/02/19 19:27 Triglycerides 162 mg/dL (<150) H 12/31/18 08:04 Cholesterol 234 mg/dL (<200) H 12/31/18 08:04 LDL Cholesterol Direct 155 mg/dL (75-193) 12/31/18 08:04 HDL Cholesterol 62 mg/dL (23-92) 12/31/18 08:04 - Physical Exam Vitals and I&O: Vital Signs Temp 98.4 F 05/01/19 05:42 Pulse 66 05/01/19 05:42 Resp 19 05/01/19 05:42 BP 111/72 05/01/19 05:42 Pulse Ox 95 05/01/19 05:42 Intake & Output 04/30/19 05/01/19 05/01/19 18:59 06:59 18:59 Intake Total 1000 280 Balance 1000 280 Intake: Oral 1000 280 Other: # Voids 3 2 # Bowel Movements 1 1 Active Medications: Current Medications Donepezil HCl (Aricept) 10 mg PO HS [facility] Last Admin: 04/30/19 20:43 Dose: 10 mg General: thin, appears younger HEENT: NC/AT, PERRLA, EOMI Neck: Supple, No JVD, No thyromegaly Lungs: CTAB Cardiovascular: RRR, Normal S1, Normal S2, with murmur Abdomen: soft, thin, non-distended, positive bowel sound Extremities: excoriation Internal Medicine Assmt/Plan - Assessment Assessment: alzheimers dementa elevated chol djd osteoporosis - Plan Plan: fall precaution nutritional support cont on calcium supplemetn will cont to follow dw rn add mvi placement pending Nutritional Asmnt/Malnutr-PDOC - Dietary Evaluation Malnutrition Findings (Please click <Entered> for more info): Nutritional Asmnt/Malnutrition Start: 01/04/19 09: 50 Text: Status: Complete Freq: Protocol: Document 01/04/19 14:59 LCHENG (Rec: 01/04/19 15:06 LCHENG [email or web address]) Nutritional Asmnt/Malnutrition Patient General Information Nutritional Screening Moderate Risk Diagnosis psychosis Pertinent Medical Hx/Surgical Hx dementia, DJD, osteoporosis Subjective Information pt seen lying in bed, awake and alert, stated food has beed great. Pt is not a big eater. Encourage to eat balanced meals and pt agreed with it. Per EMR, PO intake 75 -100% Current Diet Order/ Nutrition Support regular Pertinent Medications reviewed Pertinent Labs 12/31 reviewed Nutritional Hx/Data Height 1.65 m Height (Calculated Centimeters) 165.1 Current Weight (lbs) 74.843 kg Weight (Calculated Kilograms) 74.8 Weight (Calculated Grams) 09533.7 [place] Body Weight 125 Body Mass Index (BMI) 27.4 Weight Status Overweight GI Symptoms GI Symptoms None Last BM 01/04 x 2 Difficult in: None Skin Integrity/Comment: intact Current %PO Good (75-100%) Estimated Nutritional Goals BEE in Kcals: Using Current wt Calories/Kcals/Kg 23-27 Kcals Calculated 5039-9906 Protein: Using Current wt Protein g/k.8 Protein Calculated 60 Fluid: ml 1725-1998ml (1ml/kcal) Nutritional Problem No current Nutrition Prob Problem N/A Malnutrition Alert Is there a minimum of two criteria No selected? Query Text:Check all the applicable criteria. A minimum of two criteria are recommended for diagnosis of either severe or non-severe malnutrition. Malnutrition Related to Morbid Obesity Malnutrition related to morbid obesity No Intervention/Recommendation Comments 1. Continue with regular diet as ordered. 2. Monitor PO intake, wt, labs and skin integrity 3. F/U as low risk in 7 days Expected Outcomes/Goals Expected Outcomes/Goals 1. PO intake to meet at least 75% of nutritional needs. 2. Wt stability, skin to remain intact, labs to approach WNL.
--- NOTE | 2019-05-02 01:45 | Progress Notes ---
DATE: 05/01/2019 The patient in the hospital, remains forgetful, confused, but generally calmer, anxiously awaiting placement. She believes she is going home. We are trying to work hard on placement for the patient and trying to find her a safe discharge plan. No distress, resting comfortably, still sad, depressed, withdrawn, upset, she cannot go home right now, wants to go home, fair sleep, fair appetite. We will continue to monitor. Currently on dosing of Aricept. [facility]# [id number]
[2019-05-02] MEDS: Multivitamin w/ Minerals Tab PO SCH (09:53)
--- NOTE | 2019-05-02 12:48 | Internal Medicine Prog Note ---
Internal Medicine Subjective - Subjective Patient seen and examined:: with staff, chart reviewed Patient is:: awake, verbal, interactive, ambulating, confused Per staff patient has:: no adverse event, no episodes of fall, eating well, tolerating meds Internal Medicine Objective - Results Recent Labs: Laboratory Last Values POC Glucose 188 MG/DL (70 - 105) H 02/02/19 19:27 Triglycerides 162 mg/dL (<150) H 12/31/18 08:04 Cholesterol 234 mg/dL (<200) H 12/31/18 08:04 LDL Cholesterol Direct 155 mg/dL (75-193) 12/31/18 08:04 HDL Cholesterol 62 mg/dL (23-92) 12/31/18 08:04 - Physical Exam Vitals and I&O: Vital Signs Temp 98.4 F 05/02/19 06:25 Pulse 50 05/02/19 06:25 Resp 19 05/02/19 06:25 BP 104/67 05/02/19 06:25 Pulse Ox 93 05/02/19 06:25 Intake & Output 05/01/19 05/02/19 05/02/19 18:59 06:59 18:59 Intake Total 120 Balance 120 Intake: Oral 120 Other: # Voids 3 # Bowel Movements 0 Active Medications: Current Medications Alendronate Sodium (Fosamax) 70 mg PO QWED [facility] Stop: 07/01/19 07:29 Last Admin: 05/02/19 06:32 Dose: 70 mg Donepezil HCl (Aricept) 10 mg PO [facility] Last Admin: 05/01/19 20:36 Dose: 10 mg General: thin, appears younger HEENT: NC/AT, PERRLA, EOMI Neck: Supple, No JVD, No thyromegaly Lungs: CTAB Cardiovascular: RRR, Normal S1, Normal S2, with murmur Abdomen: soft, thin, non-distended, positive bowel sound Extremities: excoriation Internal Medicine Assmt/Plan - Assessment Assessment: alzheimers dementa elevated chol djd osteoporosis - Plan Plan: fall precaution nutritional support cont on calcium supplemetn will cont to follow dw rn add mvi placement pending Nutritional Asmnt/Malnutr-PDOC - Dietary Evaluation Malnutrition Findings (Please click <Entered> for more info): Nutritional Asmnt/Malnutrition Start: 01/04/19 09: 50 Text: Status: Complete Freq: Protocol: Document 01/04/19 14:59 LCHENG (Rec: 01/04/19 15:06 [email or web address] [id number]) Nutritional Asmnt/Malnutrition Patient General Information Nutritional Screening Moderate Risk Diagnosis psychosis Pertinent Medical Hx/Surgical Hx dementia, DJD, osteoporosis Subjective Information pt seen lying in bed, awake and alert, stated food has beed great. Pt is not a big eater. Encourage to eat balanced meals and pt agreed with it. Per EMR, PO intake 75 -100% Current Diet Order/ Nutrition Support regular Pertinent Medications reviewed Pertinent Labs 12/31 reviewed Nutritional Hx/Data Height 1.65 m Height (Calculated Centimeters) 165.1 Current Weight (lbs) 74.843 kg Weight (Calculated Kilograms) 74.8 Weight (Calculated Grams) 89138.7 [place] Body Weight 125 Body Mass Index (BMI) 27.4 Weight Status Overweight GI Symptoms GI Symptoms None Last BM 01/04 x 2 Difficult in: None Skin Integrity/Comment: intact Current %PO Good (75-100%) Estimated Nutritional Goals BEE in Kcals: Using Current wt Calories/Kcals/Kg 23-27 Kcals Calculated 3165-9954 Protein: Using Current wt Protein g/k.8 Protein Calculated 60 Fluid: ml 1725-1998ml (1ml/kcal) Nutritional Problem No current Nutrition Prob Problem N/A Malnutrition Alert Is there a minimum of two criteria No selected? Query Text:Check all the applicable criteria. A minimum of two criteria are recommended for diagnosis of either severe or non-severe malnutrition. Malnutrition Related to Morbid Obesity Malnutrition related to morbid obesity No Intervention/Recommendation Comments 1. Continue with regular diet as ordered. 2. Monitor PO intake, wt, labs and skin integrity 3. F/U as low risk in 7 days Expected Outcomes/Goals Expected Outcomes/Goals 1. PO intake to meet at least 75% of nutritional needs. 2. Wt stability, skin to remain intact, labs to approach WNL.
--- NOTE | 2019-05-02 23:01 | Progress Notes ---
DATE: 05/02/2019 SUBJECTIVE: The patient slept for about 9 hours, still stating that she is ready to go home now. She cannot go home. We will keep explained to her. I have explained to her in the past reasons, she cannot go back to her home, but she is asking, does seem to understand the severity of her current situation, very confused, forgetful, poor orientation otherwise calm, pleasant, gravely disabled, cannot take care of her basic needs. Medications were noted. We are working hard on placement trying to confirm a safe discharge. JOB# [id number]
[2019-05-03] MEDS: Multivitamin w/ Minerals Tab PO SCH (08:47)
--- NOTE | 2019-05-03 12:30 | Internal Medicine Prog Note ---
Internal Medicine Subjective - Subjective Patient seen and examined:: with staff, chart reviewed Patient is:: awake, verbal, interactive, ambulating, confused Per staff patient has:: no adverse event, no episodes of fall, eating well, tolerating meds Internal Medicine Objective - Results Recent Labs: Laboratory Last Values POC Glucose 188 MG/DL (70 - 105) H 02/02/19 19:27 Triglycerides 162 mg/dL (<150) H 12/31/18 08:04 Cholesterol 234 mg/dL (<200) H 12/31/18 08:04 LDL Cholesterol Direct 155 mg/dL (75-193) 12/31/18 08:04 HDL Cholesterol 62 mg/dL (23-92) 12/31/18 08:04 - Physical Exam Vitals and I&O: Vital Signs Temp 98.2 F 05/03/19 06:08 Pulse 61 05/03/19 06:08 Resp 18 05/03/19 06:08 BP 113/66 05/03/19 06:08 Pulse Ox 97 05/03/19 06:08 Intake & Output 05/02/19 05/03/19 05/03/19 18:59 06:59 18:59 Intake Total 1200 240 Balance 1200 240 Intake: Oral 1200 240 Other: # Voids 2 # Bowel Movements 1 0 Active Medications: Current Medications Alendronate Sodium (Fosamax) 70 mg PO QWED [facility] Stop: 07/01/19 07:29 Last Admin: 05/02/19 06:32 Dose: 70 mg Donepezil HCl (Aricept) 10 mg PO [facility] Last Admin: 05/02/19 20:45 Dose: 10 mg General: thin, appears younger HEENT: NC/AT, PERRLA, EOMI Neck: Supple, No JVD, No thyromegaly Lungs: CTAB Cardiovascular: RRR, Normal S1, Normal S2, with murmur Abdomen: soft, thin, non-distended, positive bowel sound Extremities: excoriation Internal Medicine Assmt/Plan - Assessment Assessment: alzheimers dementa elevated chol djd osteoporosis - Plan Plan: fall precaution nutritional support cont on calcium supplemetn will cont to follow dw rn add mvi placement pending Nutritional Asmnt/Malnutr-PDOC - Dietary Evaluation Malnutrition Findings (Please click <Entered> for more info): Nutritional Asmnt/Malnutrition Start: 01/04/19 09: 50 Text: Status: Complete Freq: Protocol: Document 01/04/19 14:59 LCJOSEG (Rec: 01/04/19 15:06 [email or web address] [id number]) Nutritional Asmnt/Malnutrition Patient General Information Nutritional Screening Moderate Risk Diagnosis psychosis Pertinent Medical Hx/Surgical Hx dementia, DJD, osteoporosis Subjective Information pt seen lying in bed, awake and alert, stated food has beed great. Pt is not a big eater. Encourage to eat balanced meals and pt agreed with it. Per EMR, PO intake 75 -100% Current Diet Order/ Nutrition Support regular Pertinent Medications reviewed Pertinent Labs 12/31 reviewed Nutritional Hx/Data Height 1.65 m Height (Calculated Centimeters) 165.1 Current Weight (lbs) 74.843 kg Weight (Calculated Kilograms) 74.8 Weight (Calculated Grams) 29410.7 [place] Body Weight 125 Body Mass Index (BMI) 27.4 Weight Status Overweight GI Symptoms GI Symptoms None Last BM 01/04 x 2 Difficult in: None Skin Integrity/Comment: intact Current %PO Good (75-100%) Estimated Nutritional Goals BEE in Kcals: Using Current wt Calories/Kcals/Kg 23-27 Kcals Calculated 7125-8107 Protein: Using Current wt Protein g/k.8 Protein Calculated 60 Fluid: ml 1725-1998ml (1ml/kcal) Nutritional Problem No current Nutrition Prob Problem N/A Malnutrition Alert Is there a minimum of two criteria No selected? Query Text:Check all the applicable criteria. A minimum of two criteria are recommended for diagnosis of either severe or non-severe malnutrition. Malnutrition Related to Morbid Obesity Malnutrition related to morbid obesity No Intervention/Recommendation Comments 1. Continue with regular diet as ordered. 2. Monitor PO intake, wt, labs and skin integrity 3. F/U as low risk in 7 days Expected Outcomes/Goals Expected Outcomes/Goals 1. PO intake to meet at least 75% of nutritional needs. 2. Wt stability, skin to remain intact, labs to approach WNL.
--- NOTE | 2019-05-04 02:36 | Progress Notes ---
DATE: 05/03/2019 The patient slept for about 8 hours, confused, still stating she wants to go home. We are trying to secure a safe discharge plan. The court is also involved with her. Fair ADLs, forgetful, depressed, withdrawn and frustrated that she is still here, wants to go home, but cannot go home. We will continue to monitor, adjust dosages. We are trying to confirm a safe discharge plan. Medications were noted. JOB# [id number]
[2019-05-04] MEDS: Multivitamin w/ Minerals Tab PO SCH (08:42)
--- NOTE | 2019-05-04 12:51 | Internal Medicine Prog Note ---
Internal Medicine Subjective - Subjective Patient seen and examined:: with staff, chart reviewed Patient is:: awake, verbal, interactive, ambulating, confused Per staff patient has:: no adverse event, no episodes of fall, eating well, tolerating meds Internal Medicine Objective - Results Recent Labs: Laboratory Last Values POC Glucose 188 MG/DL (70 - 105) H 02/02/19 19:27 Triglycerides 162 mg/dL (<150) H 12/31/18 08:04 Cholesterol 234 mg/dL (<200) H 12/31/18 08:04 LDL Cholesterol Direct 155 mg/dL (75-193) 12/31/18 08:04 HDL Cholesterol 62 mg/dL (23-92) 12/31/18 08:04 - Physical Exam Vitals and I&O: Vital Signs Temp 97.2 F 05/03/19 14:00 Pulse 70 05/03/19 14:00 Resp 20 05/03/19 14:00 BP 100/70 05/03/19 14:00 Pulse Ox 96 05/03/19 14:00 Intake & Output 05/03/19 05/04/19 05/04/19 18:59 06:59 18:59 Intake Total 1000 Balance 1000 Intake: Oral 1000 Other: # Voids 4 # Bowel Movements 1 Active Medications: Current Medications Alendronate Sodium (Fosamax) 70 mg PO QWED [facility] Stop: 07/01/19 07:29 Last Admin: 05/02/19 06:32 Dose: 70 mg Donepezil HCl (Aricept) 10 mg PO [facility] Last Admin: 05/03/19 21:19 Dose: 10 mg General: thin, appears younger HEENT: NC/AT, PERRLA, EOMI Neck: Supple, No JVD, No thyromegaly Lungs: CTAB Cardiovascular: RRR, Normal S1, Normal S2, with murmur Abdomen: soft, thin, non-distended, positive bowel sound Extremities: excoriation Internal Medicine Assmt/Plan - Assessment Assessment: alzheimers dementa elevated chol djd osteoporosis - Plan Plan: fall precaution nutritional support cont on calcium supplemetn will cont to follow dw rn add mvi placement pending Nutritional Asmnt/Malnutr-PDOC - Dietary Evaluation Malnutrition Findings (Please click <Entered> for more info): Nutritional Asmnt/Malnutrition Start: 01/04/19 09: 50 Text: Status: Complete Freq: Protocol: Document 01/04/19 14:59 LCHENG (Rec: 01/04/19 15:06 [email or web address] [id number]) Nutritional Asmnt/Malnutrition Patient General Information Nutritional Screening Moderate Risk Diagnosis psychosis Pertinent Medical Hx/Surgical Hx dementia, DJD, osteoporosis Subjective Information pt seen lying in bed, awake and alert, stated food has beed great. Pt is not a big eater. Encourage to eat balanced meals and pt agreed with it. Per EMR, PO intake 75 -100% Current Diet Order/ Nutrition Support regular Pertinent Medications reviewed Pertinent Labs 12/31 reviewed Nutritional Hx/Data Height 1.65 m Height (Calculated Centimeters) 165.1 Current Weight (lbs) 74.843 kg Weight (Calculated Kilograms) 74.8 Weight (Calculated Grams) 15834.7 [place] Body Weight 125 Body Mass Index (BMI) 27.4 Weight Status Overweight GI Symptoms GI Symptoms None Last BM 01/04 x 2 Difficult in: None Skin Integrity/Comment: intact Current %PO Good (75-100%) Estimated Nutritional Goals BEE in Kcals: Using Current wt Calories/Kcals/Kg 23-27 Kcals Calculated 0853-4355 Protein: Using Current wt Protein g/k.8 Protein Calculated 60 Fluid: ml 1725-1998ml (1ml/kcal) Nutritional Problem No current Nutrition Prob Problem N/A Malnutrition Alert Is there a minimum of two criteria No selected? Query Text:Check all the applicable criteria. A minimum of two criteria are recommended for diagnosis of either severe or non-severe malnutrition. Malnutrition Related to Morbid Obesity Malnutrition related to morbid obesity No Intervention/Recommendation Comments 1. Continue with regular diet as ordered. 2. Monitor PO intake, wt, labs and skin integrity 3. F/U as low risk in 7 days Expected Outcomes/Goals Expected Outcomes/Goals 1. PO intake to meet at least 75% of nutritional needs. 2. Wt stability, skin to remain intact, labs to approach WNL.
--- NOTE | 2019-05-05 01:58 | Progress Notes ---
DATE: 05/04/2019 SUBJECTIVE: The patient in the hospital, poor orientation, still believes she can go home. She cannot go home. AO to name, place, not year, not month. Very forgetful, cannot take care of her basic needs. We are trying to find out a place to go. Ongoing concerns for grave disability. Mostly withdrawn, keeps to self, depressed appearing, but no agitation. PLAN: We will continue to monitor, coordinate care with social media senior associate. JOB# [id number]
[2019-05-05] MEDS: Multivitamin w/ Minerals Tab PO SCH (08:26)
--- NOTE | 2019-05-05 13:30 | Internal Medicine Prog Note ---
Internal Medicine Subjective - Subjective Patient seen and examined:: with staff, chart reviewed Patient is:: awake, verbal, interactive, ambulating, confused Per staff patient has:: no adverse event, no episodes of fall, eating well, tolerating meds Internal Medicine Objective - Results Recent Labs: Laboratory Last Values POC Glucose 188 MG/DL (70 - 105) H 02/02/19 19:27 Triglycerides 162 mg/dL (<150) H 12/31/18 08:04 Cholesterol 234 mg/dL (<200) H 12/31/18 08:04 LDL Cholesterol Direct 155 mg/dL (75-193) 12/31/18 08:04 HDL Cholesterol 62 mg/dL (23-92) 12/31/18 08:04 - Physical Exam Vitals and I&O: Vital Signs Temp 97.8 F 05/05/19 06:36 Pulse 62 05/05/19 06:36 Resp 19 05/05/19 06:36 BP 102/64 05/05/19 06:36 Pulse Ox 98 05/05/19 06:36 Intake & Output 05/04/19 05/05/19 05/05/19 18:59 06:59 18:59 Intake Total 1000 480 Balance 1000 480 Intake: Oral 1000 480 Other: # Voids 4 1 # Bowel Movements 1 Active Medications: Current Medications Alendronate Sodium (Fosamax) 70 mg PO QWED [facility] Stop: 07/01/19 07:29 Last Admin: 05/02/19 06:32 Dose: 70 mg Donepezil HCl (Aricept) 10 mg PO [facility] Last Admin: 05/04/19 21:01 Dose: 10 mg General: thin, appears younger HEENT: NC/AT, PERRLA, EOMI Neck: Supple, No JVD, No thyromegaly Lungs: CTAB Cardiovascular: RRR, Normal S1, Normal S2, with murmur Abdomen: soft, thin, non-distended, positive bowel sound Extremities: excoriation Internal Medicine Assmt/Plan - Assessment Assessment: alzheimers dementa elevated chol djd osteoporosis - Plan Plan: fall precaution nutritional support cont on calcium supplemetn will cont to follow dw rn add mvi placement pending Nutritional Asmnt/Malnutr-PDOC - Dietary Evaluation Malnutrition Findings (Please click <Entered> for more info): Nutritional Asmnt/Malnutrition Start: 01/04/19 09: 50 Text: Status: Complete Freq: Protocol: Document 01/04/19 14:59 LCJOSEG (Rec: 01/04/19 15:06 [email or web address] [id number]) Nutritional Asmnt/Malnutrition Patient General Information Nutritional Screening Moderate Risk Diagnosis psychosis Pertinent Medical Hx/Surgical Hx dementia, DJD, osteoporosis Subjective Information pt seen lying in bed, awake and alert, stated food has beed great. Pt is not a big eater. Encourage to eat balanced meals and pt agreed with it. Per EMR, PO intake 75 -100% Current Diet Order/ Nutrition Support regular Pertinent Medications reviewed Pertinent Labs 12/31 reviewed Nutritional Hx/Data Height 1.65 m Height (Calculated Centimeters) 165.1 Current Weight (lbs) 74.843 kg Weight (Calculated Kilograms) 74.8 Weight (Calculated Grams) 22314.7 [place] Body Weight 125 Body Mass Index (BMI) 27.4 Weight Status Overweight GI Symptoms GI Symptoms None Last BM 01/04 x 2 Difficult in: None Skin Integrity/Comment: intact Current %PO Good (75-100%) Estimated Nutritional Goals BEE in Kcals: Using Current wt Calories/Kcals/Kg 23-27 Kcals Calculated 3088-4889 Protein: Using Current wt Protein g/k.8 Protein Calculated 60 Fluid: ml 1725-1998ml (1ml/kcal) Nutritional Problem No current Nutrition Prob Problem N/A Malnutrition Alert Is there a minimum of two criteria No selected? Query Text:Check all the applicable criteria. A minimum of two criteria are recommended for diagnosis of either severe or non-severe malnutrition. Malnutrition Related to Morbid Obesity Malnutrition related to morbid obesity No Intervention/Recommendation Comments 1. Continue with regular diet as ordered. 2. Monitor PO intake, wt, labs and skin integrity 3. F/U as low risk in 7 days Expected Outcomes/Goals Expected Outcomes/Goals 1. PO intake to meet at least 75% of nutritional needs. 2. Wt stability, skin to remain intact, labs to approach WNL.
--- NOTE | 2019-05-05 20:57 | Progress Notes ---
DATE: 05/05/2019 Case was discussed with staff of the patient, reviewed records. The patient continues to be confused, waiting on placement. She knows where she is and her name. She is sleeping better, eating better, ongoing concern for grave disability. No side effects with the medication, no sedation, no nausea and she is on medication for dementia. We will continue outpatient group therapy, milieu therapy, and adjust medication as needed. [facility]# [id number]
[2019-05-06] MEDS: Multivitamin w/ Minerals Tab PO SCH (08:35)
--- NOTE | 2019-05-06 13:13 | Internal Medicine Prog Note ---
Internal Medicine Subjective - Subjective Patient seen and examined:: with staff, chart reviewed Patient is:: awake, verbal, interactive, ambulating, confused Per staff patient has:: no adverse event, no episodes of fall, eating well, tolerating meds Internal Medicine Objective - Results Recent Labs: Laboratory Last Values POC Glucose 188 MG/DL (70 - 105) H 02/02/19 19:27 Triglycerides 162 mg/dL (<150) H 12/31/18 08:04 Cholesterol 234 mg/dL (<200) H 12/31/18 08:04 LDL Cholesterol Direct 155 mg/dL (75-193) 12/31/18 08:04 HDL Cholesterol 62 mg/dL (23-92) 12/31/18 08:04 - Physical Exam Vitals and I&O: Vital Signs Temp 98.1 F 05/06/19 06:22 Pulse 66 05/06/19 06:22 Resp 20 05/06/19 06:22 BP 101/63 05/06/19 06:22 Pulse Ox 97 05/06/19 06:22 Intake & Output 05/05/19 05/06/19 05/06/19 18:59 06:59 18:59 Intake Total 1500 120 Balance 1500 120 Intake: Oral 1500 120 Other: # Voids 3 3 # Bowel Movements 0 Active Medications: Current Medications Alendronate Sodium (Fosamax) 70 mg PO QWED [facility] Stop: 07/01/19 07:29 Last Admin: 05/02/19 06:32 Dose: 70 mg Donepezil HCl (Aricept) 10 mg PO [facility] Last Admin: 05/05/19 21:06 Dose: 10 mg General: thin, appears younger HEENT: NC/AT, PERRLA, EOMI Neck: Supple, No JVD, No thyromegaly Lungs: CTAB Cardiovascular: RRR, Normal S1, Normal S2, with murmur Abdomen: soft, thin, non-distended, positive bowel sound Extremities: excoriation Internal Medicine Assmt/Plan - Assessment Assessment: alzheimers dementa elevated chol djd osteoporosis - Plan Plan: fall precaution nutritional support cont on calcium supplemetn will cont to follow dw rn add mvi placement pending Nutritional Asmnt/Malnutr-PDOC - Dietary Evaluation Malnutrition Findings (Please click <Entered> for more info): Nutritional Asmnt/Malnutrition Start: 01/04/19 09: 50 Text: Status: Complete Freq: Protocol: Document 01/04/19 14:59 LCJOSEG (Rec: 01/04/19 15:06 LCJOSEG [id number]) Nutritional Asmnt/Malnutrition Patient General Information Nutritional Screening Moderate Risk Diagnosis psychosis Pertinent Medical Hx/Surgical Hx dementia, DJD, osteoporosis Subjective Information pt seen lying in bed, awake and alert, stated food has beed great. Pt is not a big eater. Encourage to eat balanced meals and pt agreed with it. Per EMR, PO intake 75 -100% Current Diet Order/ Nutrition Support regular Pertinent Medications reviewed Pertinent Labs 12/31 reviewed Nutritional Hx/Data Height 1.65 m Height (Calculated Centimeters) 165.1 Current Weight (lbs) 74.843 kg Weight (Calculated Kilograms) 74.8 Weight (Calculated Grams) 35831.7 [place] Body Weight 125 Body Mass Index (BMI) 27.4 Weight Status Overweight GI Symptoms GI Symptoms None Last BM 01/04 x 2 Difficult in: None Skin Integrity/Comment: intact Current %PO Good (75-100%) Estimated Nutritional Goals BEE in Kcals: Using Current wt Calories/Kcals/Kg 23-27 Kcals Calculated 8205-2560 Protein: Using Current wt Protein g/k.8 Protein Calculated 60 Fluid: ml 1725-1998ml (1ml/kcal) Nutritional Problem No current Nutrition Prob Problem N/A Malnutrition Alert Is there a minimum of two criteria No selected? Query Text:Check all the applicable criteria. A minimum of two criteria are recommended for diagnosis of either severe or non-severe malnutrition. Malnutrition Related to Morbid Obesity Malnutrition related to morbid obesity No Intervention/Recommendation Comments 1. Continue with regular diet as ordered. 2. Monitor PO intake, wt, labs and skin integrity 3. F/U as low risk in 7 days Expected Outcomes/Goals Expected Outcomes/Goals 1. PO intake to meet at least 75% of nutritional needs. 2. Wt stability, skin to remain intact, labs to approach WNL.
--- NOTE | 2019-05-06 22:27 | Progress Notes ---
DATE: 05/06/2019 Case was discussed with staff of the patient, reviewed records. The patient is confused, demented. Continues to have poor insight, awaiting placement. She sleeps better, eats better. No side effects from the medication, no sedation, no nausea. She is on medication for dementia. We will continue to work with the patient in group therapy, milieu therapy, and adjust the medication as needed. [facility]# [id number]
[2019-05-07] MEDS: Multivitamin w/ Minerals Tab PO SCH (08:16)
--- NOTE | 2019-05-07 12:17 | Internal Medicine Prog Note ---
Internal Medicine Subjective - Subjective Patient seen and examined:: with staff, chart reviewed Patient is:: awake, verbal, interactive, ambulating, confused Per staff patient has:: no adverse event, no episodes of fall, eating well, tolerating meds Internal Medicine Objective - Results Recent Labs: Laboratory Last Values POC Glucose 188 MG/DL (70 - 105) H 02/02/19 19:27 Triglycerides 162 mg/dL (<150) H 12/31/18 08:04 Cholesterol 234 mg/dL (<200) H 12/31/18 08:04 LDL Cholesterol Direct 155 mg/dL (75-193) 12/31/18 08:04 HDL Cholesterol 62 mg/dL (23-92) 12/31/18 08:04 - Physical Exam Vitals and I&O: Vital Signs Temp 97.6 F 05/07/19 05:48 Pulse 63 05/07/19 05:48 Resp 20 05/07/19 05:48 BP 111/70 05/07/19 05:48 Pulse Ox 96 05/07/19 05:48 Intake & Output 05/06/19 05/07/19 05/07/19 18:59 06:59 18:59 Intake Total 1400 120 Balance 1400 120 Intake: Oral 1400 120 Other: # Voids 4 1 # Bowel Movements 1 0 Active Medications: Current Medications Alendronate Sodium (Fosamax) 70 mg PO QWED [facility] Stop: 07/01/19 07:29 Last Admin: 05/02/19 06:32 Dose: 70 mg Donepezil HCl (Aricept) 10 mg PO [facility] Last Admin: 05/06/19 20:31 Dose: 10 mg General: thin, appears younger HEENT: NC/AT, PERRLA, EOMI Neck: Supple, No JVD, No thyromegaly Lungs: CTAB Cardiovascular: RRR, Normal S1, Normal S2, with murmur Abdomen: soft, thin, non-distended, positive bowel sound Extremities: excoriation Internal Medicine Assmt/Plan - Assessment Assessment: alzheimers dementa elevated chol djd osteoporosis - Plan Plan: fall precaution nutritional support cont on calcium supplemetn will cont to follow dw rn add mvi placement pending Nutritional Asmnt/Malnutr-PDOC - Dietary Evaluation Malnutrition Findings (Please click <Entered> for more info): Nutritional Asmnt/Malnutrition Start: 01/04/19 09: 50 Text: Status: Complete Freq: Protocol: Document 01/04/19 14:59 LCJOSEG (Rec: 01/04/19 15:06 TARIK [email or web address]) Nutritional Asmnt/Malnutrition Patient General Information Nutritional Screening Moderate Risk Diagnosis psychosis Pertinent Medical Hx/Surgical Hx dementia, DJD, osteoporosis Subjective Information pt seen lying in bed, awake and alert, stated food has beed great. Pt is not a big eater. Encourage to eat balanced meals and pt agreed with it. Per EMR, PO intake 75 -100% Current Diet Order/ Nutrition Support regular Pertinent Medications reviewed Pertinent Labs 12/31 reviewed Nutritional Hx/Data Height 1.65 m Height (Calculated Centimeters) 165.1 Current Weight (lbs) 74.843 kg Weight (Calculated Kilograms) 74.8 Weight (Calculated Grams) 49967.7 [place] Body Weight 125 Body Mass Index (BMI) 27.4 Weight Status Overweight GI Symptoms GI Symptoms None Last BM 01/04 x 2 Difficult in: None Skin Integrity/Comment: intact Current %PO Good (75-100%) Estimated Nutritional Goals BEE in Kcals: Using Current wt Calories/Kcals/Kg 23-27 Kcals Calculated 6401-1503 Protein: Using Current wt Protein g/k.8 Protein Calculated 60 Fluid: ml 1725-1998ml (1ml/kcal) Nutritional Problem No current Nutrition Prob Problem N/A Malnutrition Alert Is there a minimum of two criteria No selected? Query Text:Check all the applicable criteria. A minimum of two criteria are recommended for diagnosis of either severe or non-severe malnutrition. Malnutrition Related to Morbid Obesity Malnutrition related to morbid obesity No Intervention/Recommendation Comments 1. Continue with regular diet as ordered. 2. Monitor PO intake, wt, labs and skin integrity 3. F/U as low risk in 7 days Expected Outcomes/Goals Expected Outcomes/Goals 1. PO intake to meet at least 75% of nutritional needs. 2. Wt stability, skin to remain intact, labs to approach WNL.
--- NOTE | 2019-05-07 22:34 | Progress Notes ---
DATE: 05/07/2019 SUBJECTIVE: The patient remains confused, disoriented, awaiting placement. No side effects from medications. Wandering at times and mostly otherwise calm, friendly, and cooperative. No side effects from medications. Fair sleep, fair appetite. JOB# [id number]
[2019-05-08] MEDS: Multivitamin w/ Minerals Tab PO SCH (08:51)
--- NOTE | 2019-05-08 15:34 | Internal Medicine Prog Note ---
Internal Medicine Subjective - Subjective Patient seen and examined:: with staff, chart reviewed Patient is:: awake, verbal, interactive, ambulating, confused Per staff patient has:: no adverse event, no episodes of fall, eating well, tolerating meds Internal Medicine Objective - Results Recent Labs: Laboratory Last Values POC Glucose 188 MG/DL (70 - 105) H 02/02/19 19:27 Triglycerides 162 mg/dL (<150) H 12/31/18 08:04 Cholesterol 234 mg/dL (<200) H 12/31/18 08:04 LDL Cholesterol Direct 155 mg/dL (75-193) 12/31/18 08:04 HDL Cholesterol 62 mg/dL (23-92) 12/31/18 08:04 - Physical Exam Vitals and I&O: Vital Signs Temp 97.7 F 05/08/19 14:19 Pulse 74 05/08/19 14:19 Resp 20 05/08/19 14:19 BP 136/66 05/08/19 14:19 Pulse Ox 97 05/08/19 14:19 Intake & Output 05/07/19 05/08/19 05/08/19 18:59 06:59 18:59 Intake Total 900 240 Balance 900 240 Intake: Oral 900 240 Other: # Voids 3 1 # Bowel Movements 1 Active Medications: Current Medications Alendronate Sodium (Fosamax) 70 mg PO QWED [facility] Stop: 07/01/19 07:29 Last Admin: 05/02/19 06:32 Dose: 70 mg Donepezil HCl (Aricept) [address] [facility] Last Admin: 05/07/19 21:09 Dose: 10 mg General: thin, appears younger HEENT: NC/AT, PERRLA, EOMI Neck: Supple, No JVD, No thyromegaly Lungs: CTAB Cardiovascular: RRR, Normal S1, Normal S2, with murmur Abdomen: soft, thin, non-distended, positive bowel sound Extremities: excoriation Internal Medicine Assmt/Plan - Assessment Assessment: alzheimers dementa elevated chol djd osteoporosis - Plan Plan: fall precaution nutritional support cont on calcium supplemetn will cont to follow dw rn add mvi placement pending Nutritional Asmnt/Malnutr-PDOC - Dietary Evaluation Malnutrition Findings (Please click <Entered> for more info): Nutritional Asmnt/Malnutrition Start: 01/04/19 09: 50 Text: Status: Complete Freq: Protocol: Document 01/04/19 14:59 LCJOSEG (Rec: 01/04/19 15:06 [email or web address] [id number]) Nutritional Asmnt/Malnutrition Patient General Information Nutritional Screening Moderate Risk Diagnosis psychosis Pertinent Medical Hx/Surgical Hx dementia, DJD, osteoporosis Subjective Information pt seen lying in bed, awake and alert, stated food has beed great. Pt is not a big eater. Encourage to eat balanced meals and pt agreed with it. Per EMR, PO intake 75 -100% Current Diet Order/ Nutrition Support regular Pertinent Medications reviewed Pertinent Labs 12/31 reviewed Nutritional Hx/Data Height 1.65 m Height (Calculated Centimeters) 165.1 Current Weight (lbs) 74.843 kg Weight (Calculated Kilograms) 74.8 Weight (Calculated Grams) 24338.7 [place] Body Weight 125 Body Mass Index (BMI) 27.4 Weight Status Overweight GI Symptoms GI Symptoms None Last BM 01/04 x 2 Difficult in: None Skin Integrity/Comment: intact Current %PO Good (75-100%) Estimated Nutritional Goals BEE in Kcals: Using Current wt Calories/Kcals/Kg 23-27 Kcals Calculated 1201-9319 Protein: Using Current wt Protein g/k.8 Protein Calculated 60 Fluid: ml 1725-1998ml (1ml/kcal) Nutritional Problem No current Nutrition Prob Problem N/A Malnutrition Alert Is there a minimum of two criteria No selected? Query Text:Check all the applicable criteria. A minimum of two criteria are recommended for diagnosis of either severe or non-severe malnutrition. Malnutrition Related to Morbid Obesity Malnutrition related to morbid obesity No Intervention/Recommendation Comments 1. Continue with regular diet as ordered. 2. Monitor PO intake, wt, labs and skin integrity 3. F/U as low risk in 7 days Expected Outcomes/Goals Expected Outcomes/Goals 1. PO intake to meet at least 75% of nutritional needs. 2. Wt stability, skin to remain intact, labs to approach WNL.
--- NOTE | 2019-05-08 23:34 | Progress Notes ---
DATE: 05/08/[address] Mason. Case was discussed with staff of the patient, reviewed records. The patient is awaiting discharge. She is sleeping well and eating well. No suicidal ideation, no homicidal ideation, no paranoia, no side effects with the medication, no sedation, or no nausea. I will continue outpatient group therapy, milieu therapy, and adjust medication as needed. [facility]# [id number]
[2019-05-09] MEDS: Multivitamin w/ Minerals Tab PO SCH (08:47)
--- NOTE | 2019-05-09 12:08 | Internal Medicine Prog Note ---
Internal Medicine Subjective - Subjective Patient seen and examined:: with staff, chart reviewed Patient is:: awake, verbal, interactive, ambulating, confused Per staff patient has:: no adverse event, no episodes of fall, eating well, tolerating meds Internal Medicine Objective - Results Recent Labs: Laboratory Last Values POC Glucose 188 MG/DL (70 - 105) H 02/02/19 19:27 Triglycerides 162 mg/dL (<150) H 12/31/18 08:04 Cholesterol 234 mg/dL (<200) H 12/31/18 08:04 LDL Cholesterol Direct 155 mg/dL (75-193) 12/31/18 08:04 HDL Cholesterol 62 mg/dL (23-92) 12/31/18 08:04 - Physical Exam Vitals and I&O: Vital Signs Temp 97.6 F 05/09/19 06:19 Pulse 59 05/09/19 06:19 Resp 20 05/09/19 06:19 BP 133/80 05/09/19 06:19 Pulse Ox 97 05/09/19 06:19 Intake & Output 05/08/19 05/09/19 05/09/19 18:59 06:59 18:59 Intake Total 900 120 Balance 900 120 Intake: Oral 900 120 Other: # Voids 3 3 # Bowel Movements 1 0 Stool Characteristics Formed Brown Active Medications: Current Medications Alendronate Sodium (Fosamax) 70 mg PO QWED [facility] Stop: 07/01/19 07:29 Last Admin: 05/09/19 06:46 Dose: 70 mg Donepezil HCl (Aricept) 10 mg PO [facility] Last Admin: 05/08/19 21:15 Dose: 10 mg General: thin, appears younger HEENT: NC/AT, PERRLA, EOMI Neck: Supple, No JVD, No thyromegaly Lungs: CTAB Cardiovascular: RRR, Normal S1, Normal S2, with murmur Abdomen: soft, thin, non-distended, positive bowel sound Extremities: excoriation Internal Medicine Assmt/Plan - Assessment Assessment: alzheimers dementa elevated chol djd osteoporosis - Plan Plan: fall precaution nutritional support cont on calcium supplemetn will cont to follow dw rn add mvi placement pending Nutritional Asmnt/Malnutr-PDOC - Dietary Evaluation Malnutrition Findings (Please click <Entered> for more info): Nutritional Asmnt/Malnutrition Start: 01/04/19 09: 50 Text: Status: Complete Freq: Protocol: Document 01/04/19 14:59 LCJOSEG (Rec: 01/04/19 15:06 LCCOREY [email or web address]) Nutritional Asmnt/Malnutrition Patient General Information Nutritional Screening Moderate Risk Diagnosis psychosis Pertinent Medical Hx/Surgical Hx dementia, DJD, osteoporosis Subjective Information pt seen lying in bed, awake and alert, stated food has beed great. Pt is not a big eater. Encourage to eat balanced meals and pt agreed with it. Per EMR, PO intake 75 -100% Current Diet Order/ Nutrition Support regular Pertinent Medications reviewed Pertinent Labs 12/31 reviewed Nutritional Hx/Data Height 1.65 m Height (Calculated Centimeters) 165.1 Current Weight (lbs) 74.843 kg Weight (Calculated Kilograms) 74.8 Weight (Calculated Grams) 48419.7 [place] Body Weight 125 Body Mass Index (BMI) 27.4 Weight Status Overweight GI Symptoms GI Symptoms None Last BM 01/04 x 2 Difficult in: None Skin Integrity/Comment: intact Current %PO Good (75-100%) Estimated Nutritional Goals BEE in Kcals: Using Current wt Calories/Kcals/Kg 23-27 Kcals Calculated 3017-1417 Protein: Using Current wt Protein g/k.8 Protein Calculated 60 Fluid: ml 1725-1998ml (1ml/kcal) Nutritional Problem No current Nutrition Prob Problem N/A Malnutrition Alert Is there a minimum of two criteria No selected? Query Text:Check all the applicable criteria. A minimum of two criteria are recommended for diagnosis of either severe or non-severe malnutrition. Malnutrition Related to Morbid Obesity Malnutrition related to morbid obesity No Intervention/Recommendation Comments 1. Continue with regular diet as ordered. 2. Monitor PO intake, wt, labs and skin integrity 3. F/U as low risk in 7 days Expected Outcomes/Goals Expected Outcomes/Goals 1. PO intake to meet at least 75% of nutritional needs. 2. Wt stability, skin to remain intact, labs to approach WNL.
--- NOTE | 2019-05-09 13:03 | Progress Notes ---
DATE: 05/09/2019 Case was discussed with staff of the patient, reviewed records. The patient continued to more or less the same awaiting placement. Sleeping well, eating well. No suicidal ideation, no homicidal ideation, no paranoia. Working on discharge plan. She is demented. We will continue outpatient group therapy, milieu therapy, adjust medication as needed. JOB# [id number]
[2019-05-10] MEDS: Multivitamin w/ Minerals Tab PO SCH (09:22)
[2019-05-10] MEDS: Calcium Carb/Vit D 500 mg/200 U Tab PO SCH (09:23)
--- NOTE | 2019-05-10 15:09 | Progress Notes ---
DATE: 05/10/2019 Case was discussed with staff of the patient, reviewed records. The patient continues to be the same. She is demented, confused, but in general, she is pleasant, cooperative, sleeping well, eating well. No side effects with the medication, no sedation, no nausea. She is on medication for dementia and working on discharge plan, awaiting placement. We will continue the patient, reviewed therapy, milieu therapy, and adjust medications as needed. JOB# [id number]
--- NOTE | 2019-05-10 23:54 | Internal Medicine Prog Note ---
Internal Medicine Subjective - Subjective Patient seen and examined:: with staff, chart reviewed, other (late entry) Patient is:: awake, verbal, interactive, ambulating, confused Per staff patient has:: no adverse event, no episodes of fall, eating well, tolerating meds Internal Medicine Objective - Results Recent Labs: Laboratory Last Values POC Glucose 188 MG/DL (70 - 105) H 02/02/19 19:27 Triglycerides 162 mg/dL (<150) H 12/31/18 08:04 Cholesterol 234 mg/dL (<200) H 12/31/18 08:04 LDL Cholesterol Direct 155 mg/dL (75-193) 12/31/18 08:04 HDL Cholesterol 62 mg/dL (23-92) 12/31/18 08:04 - Physical Exam Vitals and I&O: Vital Signs Temp 97.5 F 05/10/19 20:00 Pulse 76 05/10/19 20:00 Resp 20 05/10/19 20:00 BP 112/64 05/10/19 20:00 Pulse Ox 98 05/10/19 20:00 Intake & Output 05/10/19 05/10/19 05/11/19 06:59 18:59 06:59 Intake Total 120 Balance 120 Intake: Oral 120 Other: # Voids 3 Active Medications: Current Medications Alendronate Sodium (Fosamax) 70 mg PO QWED [facility] Stop: 07/01/19 07:29 Last Admin: 05/09/19 06:46 Dose: 70 mg Calcium/Vitamin D (Oscal W/Vitamin D) 1 tab PO DAILY [facility] Stop: 07/09/19 08:59 Last Admin: 05/10/19 09:23 Dose: 1 tab Donepezil HCl (Aricept) 10 mg PO HS [facility] Last Admin: 05/10/19 20:27 Dose: 10 mg General: thin, appears younger HEENT: NC/AT, PERRLA, EOMI Neck: Supple, No JVD, No thyromegaly Lungs: CTAB Cardiovascular: RRR, Normal S1, Normal S2, with murmur Abdomen: soft, thin, non-distended, positive bowel sound Extremities: excoriation Internal Medicine Assmt/Plan - Assessment Assessment: alzheimers dementa elevated chol djd osteoporosis - Plan Plan: fall precaution nutritional support cont on calcium supplemetn will cont to follow dw rn add mvi placement pending Nutritional Asmnt/Malnutr-PDOC - Dietary Evaluation Malnutrition Findings (Please click <Entered> for more info): Nutritional Asmnt/Malnutrition Start: 01/04/19 09: 50 Text: Status: Complete Freq: Protocol: Document 01/04/19 14:59 LCHENG (Rec: 01/04/19 15:06 LCHENG [email or web address]) Nutritional Asmnt/Malnutrition Patient General Information Nutritional Screening Moderate Risk Diagnosis psychosis Pertinent Medical Hx/Surgical Hx dementia, DJD, osteoporosis Subjective Information pt seen lying in bed, awake and alert, stated food has beed great. Pt is not a big eater. Encourage to eat balanced meals and pt agreed with it. Per EMR, PO intake 75 -100% Current Diet Order/ Nutrition Support regular Pertinent Medications reviewed Pertinent Labs 12/31 reviewed Nutritional Hx/Data Height 1.65 m Height (Calculated Centimeters) 165.1 Current Weight (lbs) 74.843 kg Weight (Calculated Kilograms) 74.8 Weight (Calculated Grams) 61803.7 [place] Body Weight 125 Body Mass Index (BMI) 27.4 Weight Status Overweight GI Symptoms GI Symptoms None Last BM 01/04 x 2 Difficult in: None Skin Integrity/Comment: intact Current %PO Good (75-100%) Estimated Nutritional Goals BEE in Kcals: Using Current wt Calories/Kcals/Kg 23-27 Kcals Calculated 5212-9405 Protein: Using Current wt Protein g/k.8 Protein Calculated 60 Fluid: ml 1725-1998ml (1ml/kcal) Nutritional Problem No current Nutrition Prob Problem N/A Malnutrition Alert Is there a minimum of two criteria No selected? Query Text:Check all the applicable criteria. A minimum of two criteria are recommended for diagnosis of either severe or non-severe malnutrition. Malnutrition Related to Morbid Obesity Malnutrition related to morbid obesity No Intervention/Recommendation Comments 1. Continue with regular diet as ordered. 2. Monitor PO intake, wt, labs and skin integrity 3. F/U as low risk in 7 days Expected Outcomes/Goals Expected Outcomes/Goals 1. PO intake to meet at least 75% of nutritional needs. 2. Wt stability, skin to remain intact, labs to approach WNL.
[2019-05-11] MEDS: Calcium Carb/Vit D 500 mg/200 U Tab PO SCH (08:39)
[2019-05-11] MEDS: Multivitamin w/ Minerals Tab PO SCH (08:39)
--- NOTE | 2019-05-11 12:31 | Internal Medicine Prog Note ---
Internal Medicine Subjective - Subjective Patient seen and examined:: with staff, chart reviewed Patient is:: awake, verbal, interactive, ambulating, confused Per staff patient has:: no adverse event, no episodes of fall, eating well, tolerating meds Internal Medicine Objective - Results Recent Labs: Laboratory Last Values POC Glucose 188 MG/DL (70 - 105) H 02/02/19 19:27 Triglycerides 162 mg/dL (<150) H 12/31/18 08:04 Cholesterol 234 mg/dL (<200) H 12/31/18 08:04 LDL Cholesterol Direct 155 mg/dL (75-193) 12/31/18 08:04 HDL Cholesterol 62 mg/dL (23-92) 12/31/18 08:04 - Physical Exam Vitals and I&O: Vital Signs Temp 97.8 F 05/11/19 06:33 Pulse 73 05/11/19 06:33 Resp 20 05/11/19 11:57 BP 105/71 05/11/19 06:33 Pulse Ox 97 05/11/19 06:33 Intake & Output 05/10/19 05/11/19 05/11/19 18:59 06:59 18:59 Intake Total 120 Balance 120 Intake: Oral 120 Other: # Voids 3 Active Medications: Current Medications Alendronate Sodium (Fosamax) 70 mg PO QWED [facility] Stop: 07/01/19 07:29 Last Admin: 05/09/19 06:46 Dose: 70 mg Calcium/Vitamin D (Oscal W/Vitamin D) 1 tab PO DAILY [facility] Stop: 07/09/19 08:59 Last Admin: 05/11/19 08:39 Dose: 1 tab Donepezil HCl (Aricept) 10 mg PO HS [facility] Last Admin: 05/10/19 20:27 Dose: 10 mg General: thin, appears younger HEENT: NC/AT, PERRLA, EOMI Neck: Supple, No JVD, No thyromegaly Lungs: CTAB Cardiovascular: RRR, Normal S1, Normal S2, with murmur Abdomen: soft, thin, non-distended, positive bowel sound Extremities: excoriation Internal Medicine Assmt/Plan - Assessment Assessment: alzheimers dementa elevated chol djd osteoporosis - Plan Plan: fall precaution nutritional support cont on calcium supplemetn will cont to follow dw rn add mvi placement pending Nutritional Asmnt/Malnutr-PDOC - Dietary Evaluation Malnutrition Findings (Please click <Entered> for more info): Nutritional Asmnt/Malnutrition Start: 01/04/19 09: 50 Text: Status: Complete Freq: Protocol: Document 01/04/19 14:59 LCHENG (Rec: 01/04/19 15:06 LCJOSEG [id number]) Nutritional Asmnt/Malnutrition Patient General Information Nutritional Screening Moderate Risk Diagnosis psychosis Pertinent Medical Hx/Surgical Hx dementia, DJD, osteoporosis Subjective Information pt seen lying in bed, awake and alert, stated food has beed great. Pt is not a big eater. Encourage to eat balanced meals and pt agreed with it. Per EMR, PO intake 75 -100% Current Diet Order/ Nutrition Support regular Pertinent Medications reviewed Pertinent Labs 12/31 reviewed Nutritional Hx/Data Height 1.65 m Height (Calculated Centimeters) 165.1 Current Weight (lbs) 74.843 kg Weight (Calculated Kilograms) 74.8 Weight (Calculated Grams) 26622.7 [place] Body Weight 125 Body Mass Index (BMI) 27.4 Weight Status Overweight GI Symptoms GI Symptoms None Last BM 01/04 x 2 Difficult in: None Skin Integrity/Comment: intact Current %PO Good (75-100%) Estimated Nutritional Goals BEE in Kcals: Using Current wt Calories/Kcals/Kg 23-27 Kcals Calculated 7994-0433 Protein: Using Current wt Protein g/k.8 Protein Calculated 60 Fluid: ml 1725-1998ml (1ml/kcal) Nutritional Problem No current Nutrition Prob Problem N/A Malnutrition Alert Is there a minimum of two criteria No selected? Query Text:Check all the applicable criteria. A minimum of two criteria are recommended for diagnosis of either severe or non-severe malnutrition. Malnutrition Related to Morbid Obesity Malnutrition related to morbid obesity No Intervention/Recommendation Comments 1. Continue with regular diet as ordered. 2. Monitor PO intake, wt, labs and skin integrity 3. F/U as low risk in 7 days Expected Outcomes/Goals Expected Outcomes/Goals 1. PO intake to meet at least 75% of nutritional needs. 2. Wt stability, skin to remain intact, labs to approach WNL.
--- NOTE | 2019-05-11 22:46 | Progress Notes ---
DATE: 05/11/2019 Case was discussed with staff of the patient, reviewed records. The patient continues to be confused about why she is here, where she is going to go. She is sleeping well, eating well. No acting out behavior. No side effects from the medication, no sedation, no nausea. She is not taking any psychotic. She is responding well to redirection. We will continue outpatient group therapy, milieu therapy, and adjust medication as needed. [facility]# [id number]
[2019-05-12] MEDS: Calcium Carb/Vit D 500 mg/200 U Tab PO SCH (08:12)
[2019-05-12] MEDS: Multivitamin w/ Minerals Tab PO SCH (08:12)
--- NOTE | 2019-05-12 15:00 | Internal Medicine Prog Note ---
Internal Medicine Subjective - Subjective Patient seen and examined:: with staff, chart reviewed Patient is:: awake, verbal, interactive, ambulating, confused Per staff patient has:: no adverse event, no episodes of fall, eating well, tolerating meds Internal Medicine Objective - Results Recent Labs: Laboratory Last Values POC Glucose 188 MG/DL (70 - 105) H 02/02/19 19:27 Triglycerides 162 mg/dL (<150) H 12/31/18 08:04 Cholesterol 234 mg/dL (<200) H 12/31/18 08:04 LDL Cholesterol Direct 155 mg/dL (75-193) 12/31/18 08:04 HDL Cholesterol 62 mg/dL (23-92) 12/31/18 08:04 - Physical Exam Vitals and I&O: Vital Signs Temp 98.2 F 05/12/19 06:26 Pulse 74 05/12/19 06:26 Resp 20 05/12/19 06:26 BP 122/73 05/12/19 06:26 Pulse Ox 100 05/12/19 06:26 Intake & Output 05/11/19 05/12/19 05/12/19 18:59 06:59 18:59 Intake Total 1500 240 Balance 1500 240 Intake: Oral 1500 240 Other: # Voids 3 2 # Bowel Movements 0 Active Medications: Current Medications Alendronate Sodium (Fosamax) 70 mg PO QWED [facility] Stop: 07/01/19 07:29 Last Admin: 05/09/19 06:46 Dose: 70 mg Calcium/Vitamin D (Oscal W/Vitamin D) 1 tab PO DAILY [facility] Stop: 07/09/19 08:59 Last Admin: 05/12/19 08:12 Dose: 1 tab Donepezil HCl (Aricept) 10 mg PO HS [facility] Last Admin: 05/11/19 20:50 Dose: 10 mg General: thin, appears younger HEENT: NC/AT, PERRLA, EOMI Neck: Supple, No JVD, No thyromegaly Lungs: CTAB Cardiovascular: RRR, Normal S1, Normal S2, with murmur Abdomen: soft, thin, non-distended, positive bowel sound Extremities: excoriation Internal Medicine Assmt/Plan - Assessment Assessment: alzheimers dementa elevated chol djd osteoporosis - Plan Plan: fall precaution nutritional support cont on calcium supplemetn will cont to follow dw rn add mvi placement pending Nutritional Asmnt/Malnutr-PDOC - Dietary Evaluation Malnutrition Findings (Please click <Entered> for more info): Nutritional Asmnt/Malnutrition Start: 01/04/19 09: 50 Text: Status: Complete Freq: Protocol: Document 01/04/19 14:59 LCHENG (Rec: 01/04/19 15:06 LCHENG [id number]) Nutritional Asmnt/Malnutrition Patient General Information Nutritional Screening Moderate Risk Diagnosis psychosis Pertinent Medical Hx/Surgical Hx dementia, DJD, osteoporosis Subjective Information pt seen lying in bed, awake and alert, stated food has beed great. Pt is not a big eater. Encourage to eat balanced meals and pt agreed with it. Per EMR, PO intake 75 -100% Current Diet Order/ Nutrition Support regular Pertinent Medications reviewed Pertinent Labs 12/31 reviewed Nutritional Hx/Data Height 1.65 m Height (Calculated Centimeters) 165.1 Current Weight (lbs) 74.843 kg Weight (Calculated Kilograms) 74.8 Weight (Calculated Grams) 43057.7 [place] Body Weight 125 Body Mass Index (BMI) 27.4 Weight Status Overweight GI Symptoms GI Symptoms None Last BM 01/04 x 2 Difficult in: None Skin Integrity/Comment: intact Current %PO Good (75-100%) Estimated Nutritional Goals BEE in Kcals: Using Current wt Calories/Kcals/Kg 23-27 Kcals Calculated 5998-6175 Protein: Using Current wt Protein g/k.8 Protein Calculated 60 Fluid: ml 1725-1998ml (1ml/kcal) Nutritional Problem No current Nutrition Prob Problem N/A Malnutrition Alert Is there a minimum of two criteria No selected? Query Text:Check all the applicable criteria. A minimum of two criteria are recommended for diagnosis of either severe or non-severe malnutrition. Malnutrition Related to Morbid Obesity Malnutrition related to morbid obesity No Intervention/Recommendation Comments 1. Continue with regular diet as ordered. 2. Monitor PO intake, wt, labs and skin integrity 3. F/U as low risk in 7 days Expected Outcomes/Goals Expected Outcomes/Goals 1. PO intake to meet at least 75% of nutritional needs. 2. Wt stability, skin to remain intact, labs to approach WNL.
--- NOTE | 2019-05-12 21:45 | Progress Notes ---
DATE: A 73-year-old female, currently in the hospital, currently pending placement, considered gravely disabled, confused, disoriented, poor orientation, forgetful, otherwise calm and cooperative. We will continue to monitor. In the hospital, monitor for any behavioral changes or agitation. The patient is still fixated on going home, but she is not going home, given the circumstances that brought her here in the first place. [facility]# [id number]
--- NOTE | 2019-05-13 08:25 | Progress Notes ---
DATE: 05/13/2019 SUBJECTIVE: The patient in the hospital, pending placement, gravely disabled, calm, generally cooperative, still believes she is going to go home, slept fairly well, eating with redirection, prompting, ADLs with redirection, prompting. PLAN: We will continue to monitor. JOB# [id number]
[2019-05-13] MEDS: Calcium Carb/Vit D 500 mg/200 U Tab PO SCH (09:06)
[2019-05-13] MEDS: Multivitamin w/ Minerals Tab PO SCH (09:06)
--- NOTE | 2019-05-13 13:23 | Internal Medicine Prog Note ---
Internal Medicine Subjective - Subjective Patient seen and examined:: with staff, chart reviewed Patient is:: awake, verbal, interactive, ambulating, confused Per staff patient has:: no adverse event, no episodes of fall, eating well, tolerating meds Internal Medicine Objective - Results Recent Labs: Laboratory Last Values POC Glucose 188 MG/DL (70 - 105) H 02/02/19 19:27 Triglycerides 162 mg/dL (<150) H 12/31/18 08:04 Cholesterol 234 mg/dL (<200) H 12/31/18 08:04 LDL Cholesterol Direct 155 mg/dL (75-193) 12/31/18 08:04 HDL Cholesterol 62 mg/dL (23-92) 12/31/18 08:04 - Physical Exam Vitals and I&O: Vital Signs Temp 97.0 F 05/13/19 06:14 Pulse 56 05/13/19 06:14 Resp 18 05/13/19 06:14 BP 113/65 05/13/19 06:14 Pulse Ox 99 05/13/19 06:14 Intake & Output 05/12/19 05/13/19 05/13/19 18:59 06:59 18:59 Intake Total 1000 240 Balance 1000 240 Intake: Oral 1000 240 Other: # Voids 4 1 # Bowel Movements 1 Active Medications: Current Medications Alendronate Sodium (Fosamax) 70 mg PO QWED [facility] Stop: 07/01/19 07:29 Last Admin: 05/09/19 06:46 Dose: 70 mg Calcium/Vitamin D (Oscal W/Vitamin D) 1 tab PO DAILY [facility] Stop: 07/09/19 08:59 Last Admin: 05/13/19 09:06 Dose: 1 tab Donepezil HCl (Aricept) 10 mg PO HS [facility] Last Admin: 05/12/19 21:11 Dose: 10 mg General: thin, appears younger HEENT: NC/AT, PERRLA, EOMI Neck: Supple, No JVD, No thyromegaly Lungs: CTAB Cardiovascular: RRR, Normal S1, Normal S2, with murmur Abdomen: soft, thin, non-distended, positive bowel sound Extremities: excoriation Internal Medicine Assmt/Plan - Assessment Assessment: alzheimers dementa elevated chol djd osteoporosis - Plan Plan: fall precaution nutritional support cont on calcium supplemetn will cont to follow dw rn add mvi placement pending Nutritional Asmnt/Malnutr-PDOC - Dietary Evaluation Malnutrition Findings (Please click <Entered> for more info): Nutritional Asmnt/Malnutrition Start: 01/04/19 09: 50 Text: Status: Complete Freq: Protocol: Document 01/04/19 14:59 LCHENG (Rec: 01/04/19 15:06 LCHENG [email or web address]) Nutritional Asmnt/Malnutrition Patient General Information Nutritional Screening Moderate Risk Diagnosis psychosis Pertinent Medical Hx/Surgical Hx dementia, DJD, osteoporosis Subjective Information pt seen lying in bed, awake and alert, stated food has beed great. Pt is not a big eater. Encourage to eat balanced meals and pt agreed with it. Per EMR, PO intake 75 -100% Current Diet Order/ Nutrition Support regular Pertinent Medications reviewed Pertinent Labs 12/31 reviewed Nutritional Hx/Data Height 1.65 m Height (Calculated Centimeters) 165.1 Current Weight (lbs) 74.843 kg Weight (Calculated Kilograms) 74.8 Weight (Calculated Grams) 28815.7 [place] Body Weight 125 Body Mass Index (BMI) 27.4 Weight Status Overweight GI Symptoms GI Symptoms None Last BM 01/04 x 2 Difficult in: None Skin Integrity/Comment: intact Current %PO Good (75-100%) Estimated Nutritional Goals BEE in Kcals: Using Current wt Calories/Kcals/Kg 23-27 Kcals Calculated 9450-8114 Protein: Using Current wt Protein g/k.8 Protein Calculated 60 Fluid: ml 1725-1998ml (1ml/kcal) Nutritional Problem No current Nutrition Prob Problem N/A Malnutrition Alert Is there a minimum of two criteria No selected? Query Text:Check all the applicable criteria. A minimum of two criteria are recommended for diagnosis of either severe or non-severe malnutrition. Malnutrition Related to Morbid Obesity Malnutrition related to morbid obesity No Intervention/Recommendation Comments 1. Continue with regular diet as ordered. 2. Monitor PO intake, wt, labs and skin integrity 3. F/U as low risk in 7 days Expected Outcomes/Goals Expected Outcomes/Goals 1. PO intake to meet at least 75% of nutritional needs. 2. Wt stability, skin to remain intact, labs to approach WNL.
[2019-05-14] MEDS: Multivitamin w/ Minerals Tab PO SCH (09:31)
[2019-05-14] MEDS: Calcium Carb/Vit D 500 mg/200 U Tab PO SCH (09:31)
--- NOTE | 2019-05-14 12:47 | Internal Medicine Prog Note ---
Internal Medicine Subjective - Subjective Patient seen and examined:: with staff, chart reviewed Patient is:: awake, verbal, interactive, ambulating, confused Per staff patient has:: no adverse event, no episodes of fall, eating well, tolerating meds Internal Medicine Objective - Results Recent Labs: Laboratory Last Values POC Glucose 188 MG/DL (70 - 105) H 02/02/19 19:27 Triglycerides 162 mg/dL (<150) H 12/31/18 08:04 Cholesterol 234 mg/dL (<200) H 12/31/18 08:04 LDL Cholesterol Direct 155 mg/dL (75-193) 12/31/18 08:04 HDL Cholesterol 62 mg/dL (23-92) 12/31/18 08:04 - Physical Exam Vitals and I&O: Vital Signs Temp 97.1 F 05/14/19 06:27 Pulse 63 05/14/19 06:27 Resp 19 05/14/19 08:00 BP 100/70 05/14/19 06:27 Pulse Ox 97 05/14/19 06:27 Intake & Output 05/13/19 05/14/19 05/14/19 18:59 06:59 18:59 Intake Total 950 180 Balance 950 180 Intake: Oral 950 180 Other: # Voids 4 1 # Bowel Movements 1 0 Active Medications: Current Medications Alendronate Sodium (Fosamax) 70 mg PO QWED [facility] Stop: 07/01/19 07:29 Last Admin: 05/09/19 06:46 Dose: 70 mg Calcium/Vitamin D (Oscal W/Vitamin D) 1 tab PO DAILY [facility] Stop: 07/09/19 08:59 Last Admin: 05/14/19 09:31 Dose: 1 tab Donepezil HCl (Aricept) 10 mg PO HS [facility] Last Admin: 05/13/19 20:31 Dose: 10 mg General: thin, appears younger HEENT: NC/AT, PERRLA, EOMI Neck: Supple, No JVD, No thyromegaly Lungs: CTAB Cardiovascular: RRR, Normal S1, Normal S2, with murmur Abdomen: soft, thin, non-distended, positive bowel sound Extremities: excoriation Internal Medicine Assmt/Plan - Assessment Assessment: alzheimers dementa elevated chol djd osteoporosis - Plan Plan: fall precaution nutritional support cont on calcium supplemetn will cont to follow dw rn add mvi placement pending Nutritional Asmnt/Malnutr-PDOC - Dietary Evaluation Malnutrition Findings (Please click <Entered> for more info): Nutritional Asmnt/Malnutrition Start: 01/04/19 09: 50 Text: Status: Complete Freq: Protocol: Document 01/04/19 14:59 LCHENG (Rec: 01/04/19 15:06 LCJOSEG [id number]) Nutritional Asmnt/Malnutrition Patient General Information Nutritional Screening Moderate Risk Diagnosis psychosis Pertinent Medical Hx/Surgical Hx dementia, DJD, osteoporosis Subjective Information pt seen lying in bed, awake and alert, stated food has beed great. Pt is not a big eater. Encourage to eat balanced meals and pt agreed with it. Per EMR, PO intake 75 -100% Current Diet Order/ Nutrition Support regular Pertinent Medications reviewed Pertinent Labs 12/31 reviewed Nutritional Hx/Data Height 1.65 m Height (Calculated Centimeters) 165.1 Current Weight (lbs) 74.843 kg Weight (Calculated Kilograms) 74.8 Weight (Calculated Grams) 94400.7 [place] Body Weight 125 Body Mass Index (BMI) 27.4 Weight Status Overweight GI Symptoms GI Symptoms None Last BM 01/04 x 2 Difficult in: None Skin Integrity/Comment: intact Current %PO Good (75-100%) Estimated Nutritional Goals BEE in Kcals: Using Current wt Calories/Kcals/Kg 23-27 Kcals Calculated 6561-0475 Protein: Using Current wt Protein g/k.8 Protein Calculated 60 Fluid: ml 1725-1998ml (1ml/kcal) Nutritional Problem No current Nutrition Prob Problem N/A Malnutrition Alert Is there a minimum of two criteria No selected? Query Text:Check all the applicable criteria. A minimum of two criteria are recommended for diagnosis of either severe or non-severe malnutrition. Malnutrition Related to Morbid Obesity Malnutrition related to morbid obesity No Intervention/Recommendation Comments 1. Continue with regular diet as ordered. 2. Monitor PO intake, wt, labs and skin integrity 3. F/U as low risk in 7 days Expected Outcomes/Goals Expected Outcomes/Goals 1. PO intake to meet at least 75% of nutritional needs. 2. Wt stability, skin to remain intact, labs to approach WNL.
[2019-05-15] MEDS: Multivitamin w/ Minerals Tab PO SCH (08:22)
[2019-05-15] MEDS: Calcium Carb/Vit D 500 mg/200 U Tab PO SCH (08:23)
--- NOTE | 2019-05-15 10:02 | Progress Notes ---
DATE: 05/15/2019 SUBJECTIVE: Chart reviewed and the patient interviewed. Also discussed the patient's condition with the staff and reviewed records and labs. The patient is still calm and cooperative and compliant with taking her medications. The patient wants to be left alone at times and she is still in a depressed mood. Otherwise, the patient is cooperative with her treatment and she is compliant with taking her medications. ASSESSMENT: The patient is still depressed and anxious and need placement and considered to be gravely disabled. TREATMENT PLAN: We will monitor her behavior and her condition closely. Also, we will continue working on placement issue and on discharge plans. [facility]# [id number]
--- NOTE | 2019-05-15 13:08 | Internal Medicine Prog Note ---
Internal Medicine Subjective - Subjective Patient seen and examined:: with staff, chart reviewed Patient is:: awake, verbal, interactive, ambulating, confused Per staff patient has:: no adverse event, no episodes of fall, eating well, tolerating meds Internal Medicine Objective - Results Recent Labs: Laboratory Last Values POC Glucose 188 MG/DL (70 - 105) H 02/02/19 19:27 Triglycerides 162 mg/dL (<150) H 12/31/18 08:04 Cholesterol 234 mg/dL (<200) H 12/31/18 08:04 LDL Cholesterol Direct 155 mg/dL (75-193) 12/31/18 08:04 HDL Cholesterol 62 mg/dL (23-92) 12/31/18 08:04 - Physical Exam Vitals and I&O: Vital Signs Temp 97.5 F 05/15/19 05:42 Pulse 86 05/15/19 05:42 Resp 19 05/15/19 09:55 BP 131/85 05/15/19 05:42 Pulse Ox 95 05/15/19 05:42 Intake & Output 05/14/19 05/15/19 05/15/19 18:59 06:59 18:59 Intake Total 1000 240 Balance 1000 240 Intake: Oral 1000 240 Other: # Voids 4 3 # Bowel Movements 1 0 Active Medications: Current Medications Alendronate Sodium (Fosamax) 70 mg PO QWED [facility] Stop: 07/01/19 07:29 Last Admin: 05/09/19 06:46 Dose: 70 mg Calcium/Vitamin D (Oscal W/Vitamin D) 1 tab PO DAILY [facility] Stop: 07/09/19 08:59 Last Admin: 05/15/19 08:23 Dose: 1 tab Donepezil HCl (Aricept) 10 mg PO HS [facility] Last Admin: 05/14/19 20:39 Dose: 10 mg General: thin, appears younger HEENT: NC/AT, PERRLA, EOMI Neck: Supple, No JVD, No thyromegaly Lungs: CTAB Cardiovascular: RRR, Normal S1, Normal S2, with murmur Abdomen: soft, thin, non-distended, positive bowel sound Extremities: excoriation Internal Medicine Assmt/Plan - Assessment Assessment: alzheimers dementa elevated chol djd osteoporosis - Plan Plan: fall precaution nutritional support cont on calcium supplemetn will cont to follow dw rn add mvi placement pending Nutritional Asmnt/Malnutr-PDOC - Dietary Evaluation Malnutrition Findings (Please click <Entered> for more info): Nutritional Asmnt/Malnutrition Start: 01/04/19 09: 50 Text: Status: Complete Freq: Protocol: Document 01/04/19 14:59 LCHENG (Rec: 01/04/19 15:06 LCJOSEG [id number]) Nutritional Asmnt/Malnutrition Patient General Information Nutritional Screening Moderate Risk Diagnosis psychosis Pertinent Medical Hx/Surgical Hx dementia, DJD, osteoporosis Subjective Information pt seen lying in bed, awake and alert, stated food has beed great. Pt is not a big eater. Encourage to eat balanced meals and pt agreed with it. Per EMR, PO intake 75 -100% Current Diet Order/ Nutrition Support regular Pertinent Medications reviewed Pertinent Labs 12/31 reviewed Nutritional Hx/Data Height 1.65 m Height (Calculated Centimeters) 165.1 Current Weight (lbs) 74.843 kg Weight (Calculated Kilograms) 74.8 Weight (Calculated Grams) 24138.7 [place] Body Weight 125 Body Mass Index (BMI) 27.4 Weight Status Overweight GI Symptoms GI Symptoms None Last BM 01/04 x 2 Difficult in: None Skin Integrity/Comment: intact Current %PO Good (75-100%) Estimated Nutritional Goals BEE in Kcals: Using Current wt Calories/Kcals/Kg 23-27 Kcals Calculated 9236-3393 Protein: Using Current wt Protein g/k.8 Protein Calculated 60 Fluid: ml 1725-1998ml (1ml/kcal) Nutritional Problem No current Nutrition Prob Problem N/A Malnutrition Alert Is there a minimum of two criteria No selected? Query Text:Check all the applicable criteria. A minimum of two criteria are recommended for diagnosis of either severe or non-severe malnutrition. Malnutrition Related to Morbid Obesity Malnutrition related to morbid obesity No Intervention/Recommendation Comments 1. Continue with regular diet as ordered. 2. Monitor PO intake, wt, labs and skin integrity 3. F/U as low risk in 7 days Expected Outcomes/Goals Expected Outcomes/Goals 1. PO intake to meet at least 75% of nutritional needs. 2. Wt stability, skin to remain intact, labs to approach WNL.
--- NOTE | 2019-05-15 19:30 | Progress Notes ---
DATE: 05/14/2019 PSYCHIATRIC PROGRESS NOTE SUBJECTIVE: Chart reviewed and the patient interviewed. Also discussed the patient's condition with the staff and reviewed records and labs. The patient is calm and cooperative, but she is still forgetful and slightly confused. The patient also is still asking to go to her home, but at the same time, still working on placement issues with caser up. She has no behavioral issues or behavioral problems. ASSESSMENT: The patient is still considered to be gravely disabled. TREATMENT PLAN: Continue to monitor her behavior and her condition and continue adjusting medications. Also, continue working on discharge plans and placement issue. JOB# [id number]
--- NOTE | 2019-05-16 07:41 | Progress Notes ---
DATE: SUBJECTIVE: Chart reviewed and the patient interviewed. Also discussed the patient's condition with the staff and reviewed records and labs. The patient remains severely depressed. The patient also is still withdrawn and guarded and she is interacting minimally with others but at the same time, she has no behavioral issues and no behavioral problems. The patient also is cooperative with her treatment. She still needs redirections. ASSESSMENT: The patient is still considered to be gravely disabled. TREATMENT PLAN: Continue to monitor her behavior and her condition closely. Also, continue to work on her placement and discharge plans. JOB# [id number]
[2019-05-16] MEDS: Calcium Carb/Vit D 500 mg/200 U Tab PO SCH (08:50)
[2019-05-16] MEDS: Multivitamin w/ Minerals Tab PO SCH (08:50)
--- NOTE | 2019-05-16 12:14 | Internal Medicine Prog Note ---
Internal Medicine Subjective - Subjective Patient seen and examined:: with staff, chart reviewed Patient is:: awake, verbal, interactive, ambulating, confused Per staff patient has:: no adverse event, no episodes of fall, eating well, tolerating meds Internal Medicine Objective - Results Recent Labs: Laboratory Last Values POC Glucose 188 MG/DL (70 - 105) H 02/02/19 19:27 Triglycerides 162 mg/dL (<150) H 12/31/18 08:04 Cholesterol 234 mg/dL (<200) H 12/31/18 08:04 LDL Cholesterol Direct 155 mg/dL (75-193) 12/31/18 08:04 HDL Cholesterol 62 mg/dL (23-92) 12/31/18 08:04 - Physical Exam Vitals and I&O: Vital Signs Temp 96.9 F 05/16/19 05:42 Pulse 64 05/16/19 05:42 Resp 19 05/16/19 05:42 BP 121/74 05/16/19 05:42 Pulse Ox 95 05/16/19 05:42 Intake & Output 05/15/19 05/16/19 05/16/19 18:59 06:59 18:59 Intake Total 1400 60 Balance 1400 60 Intake: Oral 1400 60 Other: # Voids 4 3 # Bowel Movements 1 0 Active Medications: Current Medications Alendronate Sodium (Fosamax) 70 mg PO QWED [facility] Stop: 07/01/19 07:29 Last Admin: 05/16/19 06:54 Dose: 70 mg Calcium/Vitamin D (Oscal W/Vitamin D) 1 tab PO DAILY [facility] Stop: 07/09/19 08:59 Last Admin: 05/16/19 08:50 Dose: 1 tab Donepezil HCl (Aricept) 10 mg PO HS [facility] Last Admin: 05/15/19 21:01 Dose: 10 mg General: thin, appears younger HEENT: NC/AT, PERRLA, EOMI Neck: Supple, No JVD, No thyromegaly Lungs: CTAB Cardiovascular: RRR, Normal S1, Normal S2, with murmur Abdomen: soft, thin, non-distended, positive bowel sound Extremities: excoriation Internal Medicine Assmt/Plan - Assessment Assessment: alzheimers dementa elevated chol djd osteoporosis - Plan Plan: fall precaution nutritional support cont on calcium supplemetn will cont to follow dw rn add mvi placement pending Nutritional Asmnt/Malnutr-PDOC - Dietary Evaluation Malnutrition Findings (Please click <Entered> for more info): Nutritional Asmnt/Malnutrition Start: 01/04/19 09: 50 Text: Status: Complete Freq: Protocol: Document 01/04/19 14:59 LCHENG (Rec: 01/04/19 15:06 LCJOSEG [id number]) Nutritional Asmnt/Malnutrition Patient General Information Nutritional Screening Moderate Risk Diagnosis psychosis Pertinent Medical Hx/Surgical Hx dementia, DJD, osteoporosis Subjective Information pt seen lying in bed, awake and alert, stated food has beed great. Pt is not a big eater. Encourage to eat balanced meals and pt agreed with it. Per EMR, PO intake 75 -100% Current Diet Order/ Nutrition Support regular Pertinent Medications reviewed Pertinent Labs 12/31 reviewed Nutritional Hx/Data Height 1.65 m Height (Calculated Centimeters) 165.1 Current Weight (lbs) 74.843 kg Weight (Calculated Kilograms) 74.8 Weight (Calculated Grams) 35975.7 [place] Body Weight 125 Body Mass Index (BMI) 27.4 Weight Status Overweight GI Symptoms GI Symptoms None Last BM 01/04 x 2 Difficult in: None Skin Integrity/Comment: intact Current %PO Good (75-100%) Estimated Nutritional Goals BEE in Kcals: Using Current wt Calories/Kcals/Kg 23-27 Kcals Calculated 3022-9810 Protein: Using Current wt Protein g/k.8 Protein Calculated 60 Fluid: ml 1725-1998ml (1ml/kcal) Nutritional Problem No current Nutrition Prob Problem N/A Malnutrition Alert Is there a minimum of two criteria No selected? Query Text:Check all the applicable criteria. A minimum of two criteria are recommended for diagnosis of either severe or non-severe malnutrition. Malnutrition Related to Morbid Obesity Malnutrition related to morbid obesity No Intervention/Recommendation Comments 1. Continue with regular diet as ordered. 2. Monitor PO intake, wt, labs and skin integrity 3. F/U as low risk in 7 days Expected Outcomes/Goals Expected Outcomes/Goals 1. PO intake to meet at least 75% of nutritional needs. 2. Wt stability, skin to remain intact, labs to approach WNL.
[2019-05-17] MEDS: Calcium Carb/Vit D 500 mg/200 U Tab PO SCH (08:15)
[2019-05-17] MEDS: Multivitamin w/ Minerals Tab PO SCH (08:15)
--- NOTE | 2019-05-17 10:23 | Progress Notes ---
DATE: SUBJECTIVE: Chart reviewed and the patient interviewed. Also discussed the patient's condition with the staff and reviewed records and labs. The patient is still anxious and confused and wandering around, but no major behavioral problems. It is also is easier to redirect her. The patient also is still unable to provide any safe plan for self-care. She also is compliant with taking her medications with no side effect of medications. ASSESSMENT: The patient is still confused and considered to be gravely disabled and waiting for placement. [facility]# [id number]
--- NOTE | 2019-05-17 12:36 | Internal Medicine Prog Note ---
Internal Medicine Subjective - Subjective Patient seen and examined:: with staff, chart reviewed Patient is:: awake, verbal, interactive, ambulating, confused Per staff patient has:: no adverse event, no episodes of fall, eating well, tolerating meds Internal Medicine Objective - Results Recent Labs: Laboratory Last Values POC Glucose 188 MG/DL (70 - 105) H 02/02/19 19:27 Triglycerides 162 mg/dL (<150) H 12/31/18 08:04 Cholesterol 234 mg/dL (<200) H 12/31/18 08:04 LDL Cholesterol Direct 155 mg/dL (75-193) 12/31/18 08:04 HDL Cholesterol 62 mg/dL (23-92) 12/31/18 08:04 - Physical Exam Vitals and I&O: Vital Signs Temp 97.8 F 05/17/19 06:23 Pulse 60 05/17/19 06:23 Resp 19 05/17/19 07:41 BP 120/70 05/17/19 06:23 Pulse Ox 99 05/17/19 06:23 Intake & Output 05/16/19 05/17/19 05/17/19 18:59 06:59 18:59 Intake Total 120 Balance 120 Intake: Oral 120 Other: # Voids 3 Active Medications: Current Medications Alendronate Sodium (Fosamax) 70 mg PO QWED [facility] Stop: 07/01/19 07:29 Last Admin: 05/16/19 06:54 Dose: 70 mg Calcium/Vitamin D (Oscal W/Vitamin D) 1 tab PO DAILY [facility] Stop: 07/09/19 08:59 Last Admin: 05/17/19 08:15 Dose: 1 tab Donepezil HCl (Aricept) 10 mg PO HS [facility] Last Admin: 05/16/19 21:32 Dose: 10 mg General: thin, appears younger HEENT: NC/AT, PERRLA, EOMI Neck: Supple, No JVD, No thyromegaly Lungs: CTAB Cardiovascular: RRR, Normal S1, Normal S2, with murmur Abdomen: soft, thin, non-distended, positive bowel sound Extremities: excoriation Internal Medicine Assmt/Plan - Assessment Assessment: alzheimers dementa elevated chol djd osteoporosis - Plan Plan: fall precaution nutritional support cont on calcium supplemetn will cont to follow dw rn add mvi placement pending Nutritional Asmnt/Malnutr-PDOC - Dietary Evaluation Malnutrition Findings (Please click <Entered> for more info): Nutritional Asmnt/Malnutrition Start: 01/04/19 09: 50 Text: Status: Complete Freq: Protocol: Document 01/04/19 14:59 LCHENG (Rec: 01/04/19 15:06 [email or web address] [email or web address]) Nutritional Asmnt/Malnutrition Patient General Information Nutritional Screening Moderate Risk Diagnosis psychosis Pertinent Medical Hx/Surgical Hx dementia, DJD, osteoporosis Subjective Information pt seen lying in bed, awake and alert, stated food has beed great. Pt is not a big eater. Encourage to eat balanced meals and pt agreed with it. Per EMR, PO intake 75 -100% Current Diet Order/ Nutrition Support regular Pertinent Medications reviewed Pertinent Labs 12/31 reviewed Nutritional Hx/Data Height 1.65 m Height (Calculated Centimeters) 165.1 Current Weight (lbs) 74.843 kg Weight (Calculated Kilograms) 74.8 Weight (Calculated Grams) 11598.7 [place] Body Weight 125 Body Mass Index (BMI) 27.4 Weight Status Overweight GI Symptoms GI Symptoms None Last BM 01/04 x 2 Difficult in: None Skin Integrity/Comment: intact Current %PO Good (75-100%) Estimated Nutritional Goals BEE in Kcals: Using Current wt Calories/Kcals/Kg 23-27 Kcals Calculated 4471-1865 Protein: Using Current wt Protein g/k.8 Protein Calculated 60 Fluid: ml 1725-1998ml (1ml/kcal) Nutritional Problem No current Nutrition Prob Problem N/A Malnutrition Alert Is there a minimum of two criteria No selected? Query Text:Check all the applicable criteria. A minimum of two criteria are recommended for diagnosis of either severe or non-severe malnutrition. Malnutrition Related to Morbid Obesity Malnutrition related to morbid obesity No Intervention/Recommendation Comments 1. Continue with regular diet as ordered. 2. Monitor PO intake, wt, labs and skin integrity 3. F/U as low risk in 7 days Expected Outcomes/Goals Expected Outcomes/Goals 1. PO intake to meet at least 75% of nutritional needs. 2. Wt stability, skin to remain intact, labs to approach WNL.
[2019-05-18] MEDS: Multivitamin w/ Minerals Tab PO SCH (08:23)
[2019-05-18] MEDS: Calcium Carb/Vit D 500 mg/200 U Tab PO SCH (08:23)
--- NOTE | 2019-05-18 12:53 | Internal Medicine Prog Note ---
Internal Medicine Subjective - Subjective Patient seen and examined:: with staff, chart reviewed Patient is:: awake, verbal, interactive, ambulating, confused Per staff patient has:: no adverse event, no episodes of fall, eating well, tolerating meds Internal Medicine Objective - Results Recent Labs: Laboratory Last Values POC Glucose 188 MG/DL (70 - 105) H 02/02/19 19:27 Triglycerides 162 mg/dL (<150) H 12/31/18 08:04 Cholesterol 234 mg/dL (<200) H 12/31/18 08:04 LDL Cholesterol Direct 155 mg/dL (75-193) 12/31/18 08:04 HDL Cholesterol 62 mg/dL (23-92) 12/31/18 08:04 - Physical Exam Vitals and I&O: Vital Signs Temp 98 F 05/18/19 06:40 Pulse 79 05/18/19 06:40 Resp 19 05/18/19 07:48 BP 133/76 05/18/19 06:40 Pulse Ox 98 05/18/19 06:40 Intake & Output 05/17/19 05/18/19 05/18/19 18:59 06:59 18:59 Intake Total 240 Balance 240 Intake: Oral 240 Other: # Voids 2 Active Medications: Current Medications Alendronate Sodium (Fosamax) 70 mg PO QWED [facility] Stop: 07/01/19 07:29 Last Admin: 05/16/19 06:54 Dose: 70 mg Calcium/Vitamin D (Oscal W/Vitamin D) 1 tab PO DAILY [facility] Stop: 07/09/19 08:59 Last Admin: 05/18/19 08:23 Dose: 1 tab Donepezil HCl (Aricept) 10 mg PO [facility] Last Admin: 05/17/19 20:52 Dose: 10 mg General: thin, appears younger HEENT: NC/AT, PERRLA, EOMI Neck: Supple, No JVD, No thyromegaly Lungs: CTAB Cardiovascular: RRR, Normal S1, Normal S2, with murmur Abdomen: soft, thin, non-distended, positive bowel sound Extremities: excoriation Internal Medicine Assmt/Plan - Assessment Assessment: alzheimers dementa elevated chol djd osteoporosis - Plan Plan: fall precaution nutritional support cont on calcium supplemetn will cont to follow dw rn add mvi placement pending Nutritional Asmnt/Malnutr-PDOC - Dietary Evaluation Malnutrition Findings (Please click <Entered> for more info): Nutritional Asmnt/Malnutrition Start: 01/04/19 09: 50 Text: Status: Complete Freq: Protocol: Document 01/04/19 14:59 LCJOSEG (Rec: 01/04/19 15:06 [email or web address] [email or web address]) Nutritional Asmnt/Malnutrition Patient General Information Nutritional Screening Moderate Risk Diagnosis psychosis Pertinent Medical Hx/Surgical Hx dementia, DJD, osteoporosis Subjective Information pt seen lying in bed, awake and alert, stated food has beed great. Pt is not a big eater. Encourage to eat balanced meals and pt agreed with it. Per EMR, PO intake 75 -100% Current Diet Order/ Nutrition Support regular Pertinent Medications reviewed Pertinent Labs 12/31 reviewed Nutritional Hx/Data Height 1.65 m Height (Calculated Centimeters) 165.1 Current Weight (lbs) 74.843 kg Weight (Calculated Kilograms) 74.8 Weight (Calculated Grams) 95162.7 [place] Body Weight 125 Body Mass Index (BMI) 27.4 Weight Status Overweight GI Symptoms GI Symptoms None Last BM 01/04 x 2 Difficult in: None Skin Integrity/Comment: intact Current %PO Good (75-100%) Estimated Nutritional Goals BEE in Kcals: Using Current wt Calories/Kcals/Kg 23-27 Kcals Calculated 4492-7093 Protein: Using Current wt Protein g/k.8 Protein Calculated 60 Fluid: ml 1725-1998ml (1ml/kcal) Nutritional Problem No current Nutrition Prob Problem N/A Malnutrition Alert Is there a minimum of two criteria No selected? Query Text:Check all the applicable criteria. A minimum of two criteria are recommended for diagnosis of either severe or non-severe malnutrition. Malnutrition Related to Morbid Obesity Malnutrition related to morbid obesity No Intervention/Recommendation Comments 1. Continue with regular diet as ordered. 2. Monitor PO intake, wt, labs and skin integrity 3. F/U as low risk in 7 days Expected Outcomes/Goals Expected Outcomes/Goals 1. PO intake to meet at least 75% of nutritional needs. 2. Wt stability, skin to remain intact, labs to approach WNL.
--- NOTE | 2019-05-19 00:11 | Progress Notes ---
DATE: 05/18/2019 PSYCHIATRIC PROGRESS NOTE SUBJECTIVE: Chart reviewed and the patient interviewed. Also, discussed the patient's condition with the staff and reviewed records and labs. The patient is still confused, but calm and cooperative with her treatment. The patient still needs lot of redirections. She also is still forgetful and she is still unable to provide any safe plan for self-care. Otherwise, the patient is cooperative and compliant with taking her medications. Vital signs are stable and gait is steady. ASSESSMENT: The patient is still considered to be gravely disabled. TREATMENT PLAN: Continue to monitor her behavior and her condition closely. Also, continue to work on her discharge plans and placement issue. JOB# [id number]
[2019-05-19] MEDS: Multivitamin w/ Minerals Tab PO SCH (08:49)
[2019-05-19] MEDS: Calcium Carb/Vit D 500 mg/200 U Tab PO SCH (08:49)
--- NOTE | 2019-05-19 15:25 | Internal Medicine Prog Note ---
Internal Medicine Subjective - Subjective Service Date: 05/19/19 Patient is:: awake, verbal, interactive, ambulating, confused Per staff patient has:: no adverse event, no episodes of fall, eating well, tolerating meds Internal Medicine Objective - Results Recent Labs: Laboratory Last Values POC Glucose 188 MG/DL (70 - 105) H 02/02/19 19:27 Triglycerides 162 mg/dL (<150) H 12/31/18 08:04 Cholesterol 234 mg/dL (<200) H 12/31/18 08:04 LDL Cholesterol Direct 155 mg/dL (75-193) 12/31/18 08:04 HDL Cholesterol 62 mg/dL (23-92) 12/31/18 08:04 - Physical Exam Vitals and I&O: Vital Signs Temp 97.2 F 05/19/19 14:00 Pulse 65 05/19/19 14:00 Resp 18 05/19/19 14:00 BP 98/59 05/19/19 14:00 Pulse Ox 98 05/19/19 14:00 Intake & Output 05/18/19 05/19/19 05/19/19 18:59 06:59 18:59 Intake Total 1300 600 Balance 1300 600 Intake: Oral 1300 600 Other: # Voids 3 1 # Bowel Movements 0 Active Medications: Current Medications Alendronate Sodium (Fosamax) 70 mg PO QWED [facility] Stop: 07/01/19 07:29 Last Admin: 05/16/19 06:54 Dose: 70 mg Calcium/Vitamin D (Oscal W/Vitamin D) 1 tab PO DAILY [facility] Stop: 07/09/19 08:59 Last Admin: 05/19/19 08:49 Dose: 1 tab Donepezil HCl (Aricept) 10 mg PO HS [facility] Last Admin: 05/18/19 20:29 Dose: 10 mg General: thin, appears younger HEENT: NC/AT, PERRLA, EOMI Neck: Supple, No JVD, No thyromegaly Lungs: CTAB Cardiovascular: RRR, Normal S1, Normal S2, with murmur Abdomen: soft, thin, non-distended, positive bowel sound Extremities: excoriation Internal Medicine Assmt/Plan - Assessment Assessment: alzheimers dementa elevated chol djd osteoporosis - Plan Plan: fall precaution nutritional support cont on calcium supplemetn will cont to follow tom rn Nutritional Asmnt/Malnutr-PDOC - Dietary Evaluation Malnutrition Findings (Please click <Entered> for more info): Nutritional Asmnt/Malnutrition Start: 01/04/19 09: 50 Text: Status: Complete Freq: Protocol: Document 01/04/19 14:59 LCHENG (Rec: 01/04/19 15:06 [email or web address] [email or web address]) Nutritional Asmnt/Malnutrition Patient General Information Nutritional Screening Moderate Risk Diagnosis psychosis Pertinent Medical Hx/Surgical Hx dementia, DJD, osteoporosis Subjective Information pt seen lying in bed, awake and alert, stated food has beed great. Pt is not a big eater. Encourage to eat balanced meals and pt agreed with it. Per EMR, PO intake 75 -100% Current Diet Order/ Nutrition Support regular Pertinent Medications reviewed Pertinent Labs 12/31 reviewed Nutritional Hx/Data Height 5 ft 5 in Height (Calculated Centimeters) 165.1 Current Weight (lbs) 165 lb Weight (Calculated Kilograms) 74.8 Weight (Calculated Grams) 86477.7 [place] Body Weight 125 Body Mass Index (BMI) 27.4 Weight Status Overweight GI Symptoms GI Symptoms None Last BM 01/04 x 2 Difficult in: None Skin Integrity/Comment: intact Current %PO Good (75-100%) Estimated Nutritional Goals BEE in Kcals: Using Current wt Calories/Kcals/Kg 23-27 Kcals Calculated 1148-3908 Protein: Using Current wt Protein g/k.8 Protein Calculated 60 Fluid: ml 1725-1998ml (1ml/kcal) Nutritional Problem No current Nutrition Prob Problem N/A Malnutrition Alert Is there a minimum of two criteria No selected? Query Text:Check all the applicable criteria. A minimum of two criteria are recommended for diagnosis of either severe or non-severe malnutrition. Malnutrition Related to Morbid Obesity Malnutrition related to morbid obesity No Intervention/Recommendation Comments 1. Continue with regular diet as ordered. 2. Monitor PO intake, wt, labs and skin integrity 3. F/U as low risk in 7 days Expected Outcomes/Goals Expected Outcomes/Goals 1. PO intake to meet at least 75% of nutritional needs. 2. Wt stability, skin to remain intact, labs to approach WNL.
--- NOTE | 2019-05-20 00:10 | Progress Notes ---
DATE: 05/19/2019 PSYCHIATRIC PROGRESS NOTE SUBJECTIVE: Chart reviewed and patient interviewed. Also discussed patient's condition with the staff and reviewed records and labs. The patient is still confused and anxious. The patient also is still in a depressed mood. The patient also is interacting with others, but in a confused state. She is still unable to provide any safe plan or self care. No behavioral problems. Vital signs are stable and gait is steady. ASSESSMENT: The patient is still considered to be gravely disabled and is still depressed. TREATMENT PLAN: We will continue monitoring the patient's behavior. Also, continue to work on her discharge plans and on placement issue. JOB# [id number]
[2019-05-20] MEDS: Multivitamin w/ Minerals Tab PO SCH (08:47)
[2019-05-20] MEDS: Calcium Carb/Vit D 500 mg/200 U Tab PO SCH (08:47)
--- NOTE | 2019-05-20 15:23 | Internal Medicine Prog Note ---
Internal Medicine Subjective - Subjective Service Date: 05/20/19 Patient is:: awake, verbal, interactive, ambulating, confused Per staff patient has:: no adverse event, no episodes of fall, eating well, tolerating meds Internal Medicine Objective - Results Recent Labs: Laboratory Last Values POC Glucose 188 MG/DL (70 - 105) H 02/02/19 19:27 Triglycerides 162 mg/dL (<150) H 12/31/18 08:04 Cholesterol 234 mg/dL (<200) H 12/31/18 08:04 LDL Cholesterol Direct 155 mg/dL (75-193) 12/31/18 08:04 HDL Cholesterol 62 mg/dL (23-92) 12/31/18 08:04 - Physical Exam Vitals and I&O: Vital Signs Temp 97.6 F 05/20/19 06:48 Pulse 64 05/20/19 06:48 Resp 15 05/20/19 08:00 BP 101/65 05/20/19 06:48 Pulse Ox 94 05/20/19 06:48 Intake & Output 05/19/19 05/20/19 05/20/19 18:59 06:59 18:59 Intake Total 1200 120 Balance 1200 120 Intake: Oral 1200 120 Other: # Voids 2 # Bowel Movements 1 Active Medications: Current Medications Alendronate Sodium (Fosamax) 70 mg PO QWED [facility] Stop: 07/01/19 07:29 Last Admin: 05/16/19 06:54 Dose: 70 mg Calcium/Vitamin D (Oscal W/Vitamin D) 1 tab PO DAILY [facility] Stop: 07/09/19 08:59 Last Admin: 05/20/19 08:47 Dose: 1 tab Donepezil HCl (Aricept) 10 mg PO [facility] Last Admin: 05/19/19 20:21 Dose: 10 mg General: thin, appears younger HEENT: NC/AT, PERRLA, EOMI Neck: Supple, No JVD, No thyromegaly Lungs: CTAB Cardiovascular: RRR, Normal S1, Normal S2, with murmur Abdomen: soft, thin, non-distended, positive bowel sound Extremities: excoriation Internal Medicine Assmt/Plan - Assessment Assessment: alzheimers dementa elevated chol djd osteoporosis - Plan Plan: fall precaution nutritional support cont on calcium supplemetn will cont to follow tom rn Nutritional Asmnt/Malnutr-PDOC - Dietary Evaluation Malnutrition Findings (Please click <Entered> for more info): Nutritional Asmnt/Malnutrition Start: 01/04/19 09: 50 Text: Status: Complete Freq: Protocol: Document 01/04/19 14:59 LCCOREY (Rec: 01/04/19 15:06 TARIK [id number]) Nutritional Asmnt/Malnutrition Patient General Information Nutritional Screening Moderate Risk Diagnosis psychosis Pertinent Medical Hx/Surgical Hx dementia, DJD, osteoporosis Subjective Information pt seen lying in bed, awake and alert, stated food has beed great. Pt is not a big eater. Encourage to eat balanced meals and pt agreed with it. Per EMR, PO intake 75 -100% Current Diet Order/ Nutrition Support regular Pertinent Medications reviewed Pertinent Labs 12/31 reviewed Nutritional Hx/Data Height 5 ft 5 in Height (Calculated Centimeters) 165.1 Current Weight (lbs) 165 lb Weight (Calculated Kilograms) 74.8 Weight (Calculated Grams) 63283.7 [place] Body Weight 125 Body Mass Index (BMI) 27.4 Weight Status Overweight GI Symptoms GI Symptoms None Last BM 01/04 x 2 Difficult in: None Skin Integrity/Comment: intact Current %PO Good (75-100%) Estimated Nutritional Goals BEE in Kcals: Using Current wt Calories/Kcals/Kg 23-27 Kcals Calculated 1296-7482 Protein: Using Current wt Protein g/k.8 Protein Calculated 60 Fluid: ml 1725-1998ml (1ml/kcal) Nutritional Problem No current Nutrition Prob Problem N/A Malnutrition Alert Is there a minimum of two criteria No selected? Query Text:Check all the applicable criteria. A minimum of two criteria are recommended for diagnosis of either severe or non-severe malnutrition. Malnutrition Related to Morbid Obesity Malnutrition related to morbid obesity No Intervention/Recommendation Comments 1. Continue with regular diet as ordered. 2. Monitor PO intake, wt, labs and skin integrity 3. F/U as low risk in 7 days Expected Outcomes/Goals Expected Outcomes/Goals 1. PO intake to meet at least 75% of nutritional needs. 2. Wt stability, skin to remain intact, labs to approach WNL.
[2019-05-21] MEDS: Multivitamin w/ Minerals Tab PO SCH (08:41)
[2019-05-21] MEDS: Calcium Carb/Vit D 500 mg/200 U Tab PO SCH (08:41)
--- NOTE | 2019-05-21 12:44 | Internal Medicine Prog Note ---
Internal Medicine Subjective - Subjective Patient seen and examined:: with staff, chart reviewed Patient is:: awake, verbal, interactive, ambulating, confused Per staff patient has:: no adverse event, no episodes of fall, eating well, tolerating meds Internal Medicine Objective - Results Recent Labs: Laboratory Last Values POC Glucose 188 MG/DL (70 - 105) H 02/02/19 19:27 Triglycerides 162 mg/dL (<150) H 12/31/18 08:04 Cholesterol 234 mg/dL (<200) H 12/31/18 08:04 LDL Cholesterol Direct 155 mg/dL (75-193) 12/31/18 08:04 HDL Cholesterol 62 mg/dL (23-92) 12/31/18 08:04 - Physical Exam Vitals and I&O: Vital Signs Temp 97.3 F 05/21/19 06:52 Pulse 81 05/21/19 06:52 Resp 19 05/21/19 06:52 BP 104/66 05/21/19 06:52 Pulse Ox 96 05/21/19 06:52 Intake & Output 05/20/19 05/21/19 05/21/19 18:59 06:59 18:59 Intake Total 1400 120 Balance 1400 120 Intake: Oral 1400 120 Other: # Voids 2 3 # Bowel Movements 1 Active Medications: Current Medications Alendronate Sodium (Fosamax) 70 mg PO QWED [facility] Stop: 07/01/19 07:29 Last Admin: 05/16/19 06:54 Dose: 70 mg Calcium/Vitamin D (Oscal W/Vitamin D) 1 tab PO DAILY [facility] Stop: 07/09/19 08:59 Last Admin: 05/21/19 08:41 Dose: 1 tab Donepezil HCl (Aricept) 10 mg PO HS [facility] Last Admin: 05/20/19 20:38 Dose: 10 mg General: thin, appears younger HEENT: NC/AT, PERRLA, EOMI Neck: Supple, No JVD, No thyromegaly Lungs: CTAB Cardiovascular: RRR, Normal S1, Normal S2, with murmur Abdomen: soft, thin, non-distended, positive bowel sound Extremities: excoriation Internal Medicine Assmt/Plan - Assessment Assessment: alzheimers dementa elevated chol djd osteoporosis - Plan Plan: fall precaution nutritional support cont on calcium supplemetn will cont to follow dw rn add mvi placement pending Nutritional Asmnt/Malnutr-PDOC - Dietary Evaluation Malnutrition Findings (Please click <Entered> for more info): Nutritional Asmnt/Malnutrition Start: 01/04/19 09: 50 Text: Status: Complete Freq: Protocol: Document 01/04/19 14:59 LCHENG (Rec: 01/04/19 15:06 LCHENG [email or web address]) Nutritional Asmnt/Malnutrition Patient General Information Nutritional Screening Moderate Risk Diagnosis psychosis Pertinent Medical Hx/Surgical Hx dementia, DJD, osteoporosis Subjective Information pt seen lying in bed, awake and alert, stated food has beed great. Pt is not a big eater. Encourage to eat balanced meals and pt agreed with it. Per EMR, PO intake 75 -100% Current Diet Order/ Nutrition Support regular Pertinent Medications reviewed Pertinent Labs 12/31 reviewed Nutritional Hx/Data Height 1.65 m Height (Calculated Centimeters) 165.1 Current Weight (lbs) 74.843 kg Weight (Calculated Kilograms) 74.8 Weight (Calculated Grams) 26636.7 [place] Body Weight 125 Body Mass Index (BMI) 27.4 Weight Status Overweight GI Symptoms GI Symptoms None Last BM 01/04 x 2 Difficult in: None Skin Integrity/Comment: intact Current %PO Good (75-100%) Estimated Nutritional Goals BEE in Kcals: Using Current wt Calories/Kcals/Kg 23-27 Kcals Calculated 2059-3180 Protein: Using Current wt Protein g/k.8 Protein Calculated 60 Fluid: ml 1725-1998ml (1ml/kcal) Nutritional Problem No current Nutrition Prob Problem N/A Malnutrition Alert Is there a minimum of two criteria No selected? Query Text:Check all the applicable criteria. A minimum of two criteria are recommended for diagnosis of either severe or non-severe malnutrition. Malnutrition Related to Morbid Obesity Malnutrition related to morbid obesity No Intervention/Recommendation Comments 1. Continue with regular diet as ordered. 2. Monitor PO intake, wt, labs and skin integrity 3. F/U as low risk in 7 days Expected Outcomes/Goals Expected Outcomes/Goals 1. PO intake to meet at least 75% of nutritional needs. 2. Wt stability, skin to remain intact, labs to approach WNL.
--- NOTE | 2019-05-21 15:39 | Progress Notes ---
DATE: 05/20/2019 SUBJECTIVE: Chart reviewed and the patient interviewed. Also discussed the patient's condition with the staff and reviewed records and labs. The patient continued to be anxious and in a depressed mood. The patient also is still confused, but no agitation and no behavioral problems. She also is cooperative with taking her medications. She is still pacing up and down the unit in a confused state. Otherwise, the patient is compliant with taking medications with no side effects. ASSESSMENT: The patient is still anxious and depressed. TREATMENT PLAN: Continue to monitor her behavior and condition and continue working on discharge plans and on placement issue. JOB# [id number]
--- NOTE | 2019-05-21 23:13 | Progress Notes ---
DATE: SUBJECTIVE: Chart reviewed and the patient interviewed. Also discussed the patient's condition with the staff and reviewed records and labs. The patient continued to be anxious and depressed, but calm and cooperative with treatment. The patient also is still forgetful and confused and still has difficulty making decisions and considered to be gravely disabled. Otherwise, the patient is compliant with taking her medications and the patient denies any side effects of Aricept 10 mg every day. ASSESSMENT: The patient is still considered gravely disabled and waiting for placement. TREATMENT PLAN: We will continue monitoring her condition and medications and continue working on placement issue and discharge plans. JOB# [id number]
--- NOTE | 2019-05-22 08:04 | Progress Notes ---
DATE: SUBJECTIVE: Chart reviewed and the patient interviewed. Also discussed the patient's condition with the staff and reviewed records and labs. The patient is still anxious and still in a depressed mood. The patient also is still withdrawn and is still guarded. She also still has difficulty in making decisions and she is still considered to be gravely disabled. ASSESSMENT: The patient is still considered to be gravely disabled and waiting for placement. TREATMENT PLAN: Continue to monitor her behavior and her condition. Also, continue to work on her ineffective coping and followup. JOB# [id number]
[2019-05-22] MEDS: Multivitamin w/ Minerals Tab PO SCH (08:31)
[2019-05-22] MEDS: Calcium Carb/Vit D 500 mg/200 U Tab PO SCH (08:31)
--- NOTE | 2019-05-22 12:49 | Internal Medicine Prog Note ---
Internal Medicine Subjective - Subjective Patient seen and examined:: with staff, chart reviewed Patient is:: awake, verbal, interactive, ambulating, confused Per staff patient has:: no adverse event, no episodes of fall, eating well, tolerating meds Internal Medicine Objective - Results Recent Labs: Laboratory Last Values POC Glucose 188 MG/DL (70 - 105) H 02/02/19 19:27 Triglycerides 162 mg/dL (<150) H 12/31/18 08:04 Cholesterol 234 mg/dL (<200) H 12/31/18 08:04 LDL Cholesterol Direct 155 mg/dL (75-193) 12/31/18 08:04 HDL Cholesterol 62 mg/dL (23-92) 12/31/18 08:04 - Physical Exam Vitals and I&O: Vital Signs Temp 97.8 F 05/22/19 06:01 Pulse 53 05/22/19 06:01 Resp 18 05/22/19 06:01 BP 102/57 05/22/19 06:01 Pulse Ox 96 05/22/19 06:01 Intake & Output 05/21/19 05/22/19 05/22/19 18:59 06:59 18:59 Intake Total 1000 120 Balance 1000 120 Intake: Oral 1000 120 Other: # Voids 4 1 # Bowel Movements 1 0 Active Medications: Current Medications Alendronate Sodium (Fosamax) 70 mg PO QWED [facility] Stop: 07/01/19 07:29 Last Admin: 05/16/19 06:54 Dose: 70 mg Calcium/Vitamin D (Oscal W/Vitamin D) 1 tab PO DAILY [facility] Stop: 07/09/19 08:59 Last Admin: 05/22/19 08:31 Dose: 1 tab Donepezil HCl (Aricept) 10 mg PO HS [facility] Last Admin: 05/21/19 20:29 Dose: 10 mg General: thin, appears younger HEENT: NC/AT, PERRLA, EOMI Neck: Supple, No JVD, No thyromegaly Lungs: CTAB Cardiovascular: RRR, Normal S1, Normal S2, with murmur Abdomen: soft, thin, non-distended, positive bowel sound Extremities: excoriation Internal Medicine Assmt/Plan - Assessment Assessment: alzheimers dementa elevated chol djd osteoporosis - Plan Plan: fall precaution nutritional support cont on calcium supplemetn will cont to follow dw rn add mvi placement pending Nutritional Asmnt/Malnutr-PDOC - Dietary Evaluation Malnutrition Findings (Please click <Entered> for more info): Nutritional Asmnt/Malnutrition Start: 01/04/19 09: 50 Text: Status: Complete Freq: Protocol: Document 01/04/19 14:59 LCHENG (Rec: 01/04/19 15:06 [email or web address] [id number]) Nutritional Asmnt/Malnutrition Patient General Information Nutritional Screening Moderate Risk Diagnosis psychosis Pertinent Medical Hx/Surgical Hx dementia, DJD, osteoporosis Subjective Information pt seen lying in bed, awake and alert, stated food has beed great. Pt is not a big eater. Encourage to eat balanced meals and pt agreed with it. Per EMR, PO intake 75 -100% Current Diet Order/ Nutrition Support regular Pertinent Medications reviewed Pertinent Labs 12/31 reviewed Nutritional Hx/Data Height 1.65 m Height (Calculated Centimeters) 165.1 Current Weight (lbs) 74.843 kg Weight (Calculated Kilograms) 74.8 Weight (Calculated Grams) 25723.7 [place] Body Weight 125 Body Mass Index (BMI) 27.4 Weight Status Overweight GI Symptoms GI Symptoms None Last BM 01/04 x 2 Difficult in: None Skin Integrity/Comment: intact Current %PO Good (75-100%) Estimated Nutritional Goals BEE in Kcals: Using Current wt Calories/Kcals/Kg 23-27 Kcals Calculated 1570-8882 Protein: Using Current wt Protein g/k.8 Protein Calculated 60 Fluid: ml 1725-1998ml (1ml/kcal) Nutritional Problem No current Nutrition Prob Problem N/A Malnutrition Alert Is there a minimum of two criteria No selected? Query Text:Check all the applicable criteria. A minimum of two criteria are recommended for diagnosis of either severe or non-severe malnutrition. Malnutrition Related to Morbid Obesity Malnutrition related to morbid obesity No Intervention/Recommendation Comments 1. Continue with regular diet as ordered. 2. Monitor PO intake, wt, labs and skin integrity 3. F/U as low risk in 7 days Expected Outcomes/Goals Expected Outcomes/Goals 1. PO intake to meet at least 75% of nutritional needs. 2. Wt stability, skin to remain intact, labs to approach WNL.
[2019-05-23] MEDS: Calcium Carb/Vit D 500 mg/200 U Tab PO SCH (09:15)
[2019-05-23] MEDS: Multivitamin w/ Minerals Tab PO SCH (09:15)
--- NOTE | 2019-05-23 12:33 | Internal Medicine Prog Note ---
Internal Medicine Subjective - Subjective Patient seen and examined:: with staff, chart reviewed Patient is:: awake, verbal, interactive, ambulating, confused Per staff patient has:: no adverse event, no episodes of fall, eating well, tolerating meds Internal Medicine Objective - Results Recent Labs: Laboratory Last Values POC Glucose 188 MG/DL (70 - 105) H 02/02/19 19:27 Triglycerides 162 mg/dL (<150) H 12/31/18 08:04 Cholesterol 234 mg/dL (<200) H 12/31/18 08:04 LDL Cholesterol Direct 155 mg/dL (75-193) 12/31/18 08:04 HDL Cholesterol 62 mg/dL (23-92) 12/31/18 08:04 - Physical Exam Vitals and I&O: Vital Signs Temp 97.9 F 05/23/19 06:09 Pulse 56 05/23/19 06:09 Resp 20 05/23/19 08:00 BP 101/59 05/23/19 06:09 Pulse Ox 95 05/23/19 06:09 Intake & Output 05/22/19 05/23/19 05/23/19 18:59 06:59 18:59 Intake Total 900 200 Balance 900 200 Intake: Oral 900 200 Other: # Voids 3 3 # Bowel Movements 1 0 Active Medications: Current Medications Alendronate Sodium (Fosamax) 70 mg PO QWED [facility] Stop: 07/01/19 07:29 Last Admin: 05/23/19 09:15 Dose: 70 mg Calcium/Vitamin D (Oscal W/Vitamin D) 1 tab PO DAILY [facility] Stop: 07/09/19 08:59 Last Admin: 05/23/19 09:15 Dose: 1 tab Donepezil HCl (Aricept) 10 mg PO HS [facility] Last Admin: 05/22/19 20:31 Dose: 10 mg General: thin, appears younger HEENT: NC/AT, PERRLA, EOMI Neck: Supple, No JVD, No thyromegaly Lungs: CTAB Cardiovascular: RRR, Normal S1, Normal S2, with murmur Abdomen: soft, thin, non-distended, positive bowel sound Extremities: excoriation Internal Medicine Assmt/Plan - Assessment Assessment: alzheimers dementa elevated chol djd osteoporosis - Plan Plan: fall precaution nutritional support cont on calcium supplemetn will cont to follow dw rn add mvi placement pending Nutritional Asmnt/Malnutr-PDOC - Dietary Evaluation Malnutrition Findings (Please click <Entered> for more info): Nutritional Asmnt/Malnutrition Start: 01/04/19 09: 50 Text: Status: Complete Freq: Protocol: Document 01/04/19 14:59 LCHENG (Rec: 01/04/19 15:06 [email or web address] [id number]) Nutritional Asmnt/Malnutrition Patient General Information Nutritional Screening Moderate Risk Diagnosis psychosis Pertinent Medical Hx/Surgical Hx dementia, DJD, osteoporosis Subjective Information pt seen lying in bed, awake and alert, stated food has beed great. Pt is not a big eater. Encourage to eat balanced meals and pt agreed with it. Per EMR, PO intake 75 -100% Current Diet Order/ Nutrition Support regular Pertinent Medications reviewed Pertinent Labs 12/31 reviewed Nutritional Hx/Data Height 1.65 m Height (Calculated Centimeters) 165.1 Current Weight (lbs) 74.843 kg Weight (Calculated Kilograms) 74.8 Weight (Calculated Grams) 81035.7 [place] Body Weight 125 Body Mass Index (BMI) 27.4 Weight Status Overweight GI Symptoms GI Symptoms None Last BM 01/04 x 2 Difficult in: None Skin Integrity/Comment: intact Current %PO Good (75-100%) Estimated Nutritional Goals BEE in Kcals: Using Current wt Calories/Kcals/Kg 23-27 Kcals Calculated 6774-8832 Protein: Using Current wt Protein g/k.8 Protein Calculated 60 Fluid: ml 1725-1998ml (1ml/kcal) Nutritional Problem No current Nutrition Prob Problem N/A Malnutrition Alert Is there a minimum of two criteria No selected? Query Text:Check all the applicable criteria. A minimum of two criteria are recommended for diagnosis of either severe or non-severe malnutrition. Malnutrition Related to Morbid Obesity Malnutrition related to morbid obesity No Intervention/Recommendation Comments 1. Continue with regular diet as ordered. 2. Monitor PO intake, wt, labs and skin integrity 3. F/U as low risk in 7 days Expected Outcomes/Goals Expected Outcomes/Goals 1. PO intake to meet at least 75% of nutritional needs. 2. Wt stability, skin to remain intact, labs to approach WNL.
--- NOTE | 2019-05-23 21:47 | Progress Notes ---
DATE: 05/23/2019 SUBJECTIVE: The patient remains depressed, anxious, withdrawn, gravely disabled, confusion noted. MEDICATIONS: Noted. PLAN: We will continue to monitor. Continue treatment plan as set forth by Dr. Mason. JOB# [id number]
[2019-05-24] MEDS: Calcium Carb/Vit D 500 mg/200 U Tab PO SCH (08:14)
[2019-05-24] MEDS: Multivitamin w/ Minerals Tab PO SCH (08:14)
--- NOTE | 2019-05-24 13:08 | Internal Medicine Prog Note ---
Internal Medicine Subjective - Subjective Patient seen and examined:: with staff, chart reviewed Patient is:: awake, verbal, interactive, ambulating, confused Per staff patient has:: no adverse event, no episodes of fall, eating well, tolerating meds Internal Medicine Objective - Results Recent Labs: Laboratory Last Values POC Glucose 188 MG/DL (70 - 105) H 02/02/19 19:27 Triglycerides 162 mg/dL (<150) H 12/31/18 08:04 Cholesterol 234 mg/dL (<200) H 12/31/18 08:04 LDL Cholesterol Direct 155 mg/dL (75-193) 12/31/18 08:04 HDL Cholesterol 62 mg/dL (23-92) 12/31/18 08:04 - Physical Exam Vitals and I&O: Vital Signs Temp 97.6 F 05/24/19 06:27 Pulse 77 05/24/19 06:27 Resp 20 05/24/19 07:45 BP 115/81 05/24/19 06:27 Pulse Ox 97 05/24/19 06:27 Intake & Output 05/23/19 05/24/19 05/24/19 18:59 06:59 18:59 Intake Total 900 220 Balance 900 220 Intake: Oral 900 220 Other: # Voids 3 2 # Bowel Movements 1 1 Active Medications: Current Medications Alendronate Sodium (Fosamax) 70 mg PO QWED [facility] Stop: 07/01/19 07:29 Last Admin: 05/23/19 09:15 Dose: 70 mg Calcium/Vitamin D (Oscal W/Vitamin D) 1 tab PO DAILY [facility] Stop: 07/09/19 08:59 Last Admin: 05/24/19 08:14 Dose: 1 tab Donepezil HCl (Aricept) 10 mg PO HS [facility] Last Admin: 05/23/19 20:08 Dose: 10 mg General: thin, appears younger HEENT: NC/AT, PERRLA, EOMI Neck: Supple, No JVD, No thyromegaly Lungs: CTAB Cardiovascular: RRR, Normal S1, Normal S2, with murmur Abdomen: soft, thin, non-distended, positive bowel sound Extremities: excoriation Internal Medicine Assmt/Plan - Assessment Assessment: alzheimers dementa elevated chol djd osteoporosis - Plan Plan: fall precaution nutritional support cont on calcium supplemetn will cont to follow dw rn add mvi placement pending Nutritional Asmnt/Malnutr-PDOC - Dietary Evaluation Malnutrition Findings (Please click <Entered> for more info): Nutritional Asmnt/Malnutrition Start: 01/04/19 09: 50 Text: Status: Complete Freq: Protocol: Document 01/04/19 14:59 LCHENG (Rec: 01/04/19 15:06 LCJOSEG [id number]) Nutritional Asmnt/Malnutrition Patient General Information Nutritional Screening Moderate Risk Diagnosis psychosis Pertinent Medical Hx/Surgical Hx dementia, DJD, osteoporosis Subjective Information pt seen lying in bed, awake and alert, stated food has beed great. Pt is not a big eater. Encourage to eat balanced meals and pt agreed with it. Per EMR, PO intake 75 -100% Current Diet Order/ Nutrition Support regular Pertinent Medications reviewed Pertinent Labs 12/31 reviewed Nutritional Hx/Data Height 1.65 m Height (Calculated Centimeters) 165.1 Current Weight (lbs) 74.843 kg Weight (Calculated Kilograms) 74.8 Weight (Calculated Grams) 05760.7 [place] Body Weight 125 Body Mass Index (BMI) 27.4 Weight Status Overweight GI Symptoms GI Symptoms None Last BM 01/04 x 2 Difficult in: None Skin Integrity/Comment: intact Current %PO Good (75-100%) Estimated Nutritional Goals BEE in Kcals: Using Current wt Calories/Kcals/Kg 23-27 Kcals Calculated 7845-3673 Protein: Using Current wt Protein g/k.8 Protein Calculated 60 Fluid: ml 1725-1998ml (1ml/kcal) Nutritional Problem No current Nutrition Prob Problem N/A Malnutrition Alert Is there a minimum of two criteria No selected? Query Text:Check all the applicable criteria. A minimum of two criteria are recommended for diagnosis of either severe or non-severe malnutrition. Malnutrition Related to Morbid Obesity Malnutrition related to morbid obesity No Intervention/Recommendation Comments 1. Continue with regular diet as ordered. 2. Monitor PO intake, wt, labs and skin integrity 3. F/U as low risk in 7 days Expected Outcomes/Goals Expected Outcomes/Goals 1. PO intake to meet at least 75% of nutritional needs. 2. Wt stability, skin to remain intact, labs to approach WNL.
--- NOTE | 2019-05-24 14:07 | Progress Notes ---
DATE: 05/24/2019 The patient in the hospital, confused, disoriented, but generally calm. Currently pending placement. Concerns about grave disability. Otherwise, no agitation, no escalation of behaviors. We are working hard on placement at this time. It has been fairly complicated location of the patient's funds, trying to be located. Also conservatorship. JOB# [id number]
[2019-05-25] MEDS: Calcium Carb/Vit D 500 mg/200 U Tab PO SCH (08:58)
[2019-05-25] MEDS: Multivitamin w/ Minerals Tab PO SCH (08:58)
--- NOTE | 2019-05-25 12:42 | Internal Medicine Prog Note ---
Internal Medicine Subjective - Subjective Patient seen and examined:: with staff, chart reviewed Patient is:: awake, verbal, interactive, ambulating, confused Per staff patient has:: no adverse event, no episodes of fall, eating well, tolerating meds Internal Medicine Objective - Results Recent Labs: Laboratory Last Values POC Glucose 188 MG/DL (70 - 105) H 02/02/19 19:27 Triglycerides 162 mg/dL (<150) H 12/31/18 08:04 Cholesterol 234 mg/dL (<200) H 12/31/18 08:04 LDL Cholesterol Direct 155 mg/dL (75-193) 12/31/18 08:04 HDL Cholesterol 62 mg/dL (23-92) 12/31/18 08:04 - Physical Exam Vitals and I&O: Vital Signs Temp 97.5 F 05/25/19 06:27 Pulse 72 05/25/19 06:27 Resp 19 05/25/19 06:27 BP 139/73 05/25/19 06:27 Pulse Ox 96 05/25/19 06:27 Intake & Output 05/24/19 05/25/19 05/25/19 18:59 06:59 18:59 Intake Total 120 Balance 120 Intake: Oral 120 Other: # Voids 2 2 # Bowel Movements 1 Active Medications: Current Medications Alendronate Sodium (Fosamax) 70 mg PO QWED [facility] Stop: 07/01/19 07:29 Last Admin: 05/23/19 09:15 Dose: 70 mg Calcium/Vitamin D (Oscal W/Vitamin D) 1 tab PO DAILY [facility] Stop: 07/09/19 08:59 Last Admin: 05/25/19 08:58 Dose: 1 tab Donepezil HCl (Aricept) 10 mg PO HS [facility] Last Admin: 05/24/19 20:31 Dose: 10 mg General: thin, appears younger HEENT: NC/AT, PERRLA, EOMI Neck: Supple, No JVD, No thyromegaly Lungs: CTAB Cardiovascular: RRR, Normal S1, Normal S2, with murmur Abdomen: soft, thin, non-distended, positive bowel sound Extremities: excoriation Internal Medicine Assmt/Plan - Assessment Assessment: alzheimers dementa elevated chol djd osteoporosis - Plan Plan: fall precaution nutritional support cont on calcium supplemetn will cont to follow dw rn add mvi placement pending Nutritional Asmnt/Malnutr-PDOC - Dietary Evaluation Malnutrition Findings (Please click <Entered> for more info): Nutritional Asmnt/Malnutrition Start: 01/04/19 09: 50 Text: Status: Complete Freq: Protocol: Document 01/04/19 14:59 LCHENG (Rec: 01/04/19 15:06 [email or web address] [id number]) Nutritional Asmnt/Malnutrition Patient General Information Nutritional Screening Moderate Risk Diagnosis psychosis Pertinent Medical Hx/Surgical Hx dementia, DJD, osteoporosis Subjective Information pt seen lying in bed, awake and alert, stated food has beed great. Pt is not a big eater. Encourage to eat balanced meals and pt agreed with it. Per EMR, PO intake 75 -100% Current Diet Order/ Nutrition Support regular Pertinent Medications reviewed Pertinent Labs 12/31 reviewed Nutritional Hx/Data Height 1.65 m Height (Calculated Centimeters) 165.1 Current Weight (lbs) 74.843 kg Weight (Calculated Kilograms) 74.8 Weight (Calculated Grams) 58892.7 [place] Body Weight 125 Body Mass Index (BMI) 27.4 Weight Status Overweight GI Symptoms GI Symptoms None Last BM 01/04 x 2 Difficult in: None Skin Integrity/Comment: intact Current %PO Good (75-100%) Estimated Nutritional Goals BEE in Kcals: Using Current wt Calories/Kcals/Kg 23-27 Kcals Calculated 4751-0141 Protein: Using Current wt Protein g/k.8 Protein Calculated 60 Fluid: ml 1725-1998ml (1ml/kcal) Nutritional Problem No current Nutrition Prob Problem N/A Malnutrition Alert Is there a minimum of two criteria No selected? Query Text:Check all the applicable criteria. A minimum of two criteria are recommended for diagnosis of either severe or non-severe malnutrition. Malnutrition Related to Morbid Obesity Malnutrition related to morbid obesity No Intervention/Recommendation Comments 1. Continue with regular diet as ordered. 2. Monitor PO intake, wt, labs and skin integrity 3. F/U as low risk in 7 days Expected Outcomes/Goals Expected Outcomes/Goals 1. PO intake to meet at least 75% of nutritional needs. 2. Wt stability, skin to remain intact, labs to approach WNL.
--- NOTE | 2019-05-25 17:21 | Progress Notes ---
DATE: 05/25/2019 SUBJECTIVE: The patient remains confused, forgetful, but cooperative, no agitation, no escalation of behaviors, getting along well with others, sleeping well, eating well. We are pending placement, some complications with placement. Medications were reviewed. No complaints. The patient is sitting comfortably with others. [facility]# [id number]
[2019-05-26] MEDS: Calcium Carb/Vit D 500 mg/200 U Tab PO SCH (08:24)
--- NOTE | 2019-05-26 12:42 | Internal Medicine Prog Note ---
Internal Medicine Subjective - Subjective Patient seen and examined:: with staff, chart reviewed Patient is:: awake, verbal, interactive, ambulating, confused Per staff patient has:: no adverse event, no episodes of fall, eating well, tolerating meds Internal Medicine Objective - Results Recent Labs: Laboratory Last Values POC Glucose 188 MG/DL (70 - 105) H 02/02/19 19:27 Triglycerides 162 mg/dL (<150) H 12/31/18 08:04 Cholesterol 234 mg/dL (<200) H 12/31/18 08:04 LDL Cholesterol Direct 155 mg/dL (75-193) 12/31/18 08:04 HDL Cholesterol 62 mg/dL (23-92) 12/31/18 08:04 - Physical Exam Vitals and I&O: Vital Signs Temp 97.3 F 05/26/19 06:22 Pulse 76 05/26/19 06:22 Resp 18 05/26/19 09:33 BP 122/64 05/26/19 06:22 Pulse Ox 96 05/26/19 06:22 Intake & Output 05/25/19 05/26/19 05/26/19 18:59 06:59 18:59 Intake Total 1300 960 Balance 1300 960 Intake: Oral 1300 960 Other: # Voids 3 2 # Bowel Movements 0 Active Medications: Current Medications Alendronate Sodium (Fosamax) 70 mg PO QWED [facility] Stop: 07/01/19 07:29 Last Admin: 05/23/19 09:15 Dose: 70 mg Calcium/Vitamin D (Oscal W/Vitamin D) 1 tab PO DAILY [facility] Stop: 07/09/19 08:59 Last Admin: 05/26/19 08:24 Dose: 1 tab Donepezil HCl (Aricept) 10 mg PO HS [facility] Last Admin: 05/25/19 21:11 Dose: 10 mg General: thin, appears younger HEENT: NC/AT, PERRLA, EOMI Neck: Supple, No JVD, No thyromegaly Lungs: CTAB Cardiovascular: RRR, Normal S1, Normal S2, with murmur Abdomen: soft, thin, non-distended, positive bowel sound Extremities: excoriation Internal Medicine Assmt/Plan - Assessment Assessment: alzheimers dementa elevated chol djd osteoporosis - Plan Plan: fall precaution nutritional support cont on calcium supplemetn will cont to follow dw rn add mvi placement pending Nutritional Asmnt/Malnutr-PDOC - Dietary Evaluation Malnutrition Findings (Please click <Entered> for more info): Nutritional Asmnt/Malnutrition Start: 01/04/19 09: 50 Text: Status: Complete Freq: Protocol: Document 01/04/19 14:59 LCHENG (Rec: 01/04/19 15:06 LCHENG [id number]) Nutritional Asmnt/Malnutrition Patient General Information Nutritional Screening Moderate Risk Diagnosis psychosis Pertinent Medical Hx/Surgical Hx dementia, DJD, osteoporosis Subjective Information pt seen lying in bed, awake and alert, stated food has beed great. Pt is not a big eater. Encourage to eat balanced meals and pt agreed with it. Per EMR, PO intake 75 -100% Current Diet Order/ Nutrition Support regular Pertinent Medications reviewed Pertinent Labs 12/31 reviewed Nutritional Hx/Data Height 1.65 m Height (Calculated Centimeters) 165.1 Current Weight (lbs) 74.843 kg Weight (Calculated Kilograms) 74.8 Weight (Calculated Grams) 01293.7 [place] Body Weight 125 Body Mass Index (BMI) 27.4 Weight Status Overweight GI Symptoms GI Symptoms None Last BM 01/04 x 2 Difficult in: None Skin Integrity/Comment: intact Current %PO Good (75-100%) Estimated Nutritional Goals BEE in Kcals: Using Current wt Calories/Kcals/Kg 23-27 Kcals Calculated 1133-8068 Protein: Using Current wt Protein g/k.8 Protein Calculated 60 Fluid: ml 1725-1998ml (1ml/kcal) Nutritional Problem No current Nutrition Prob Problem N/A Malnutrition Alert Is there a minimum of two criteria No selected? Query Text:Check all the applicable criteria. A minimum of two criteria are recommended for diagnosis of either severe or non-severe malnutrition. Malnutrition Related to Morbid Obesity Malnutrition related to morbid obesity No Intervention/Recommendation Comments 1. Continue with regular diet as ordered. 2. Monitor PO intake, wt, labs and skin integrity 3. F/U as low risk in 7 days Expected Outcomes/Goals Expected Outcomes/Goals 1. PO intake to meet at least 75% of nutritional needs. 2. Wt stability, skin to remain intact, labs to approach WNL.
--- NOTE | 2019-05-27 06:57 | Progress Notes ---
DATE: 05/26/[address] Mason. SUBJECTIVE: Easily forgetful, confused overnight, no aggression in behavior. MENTAL STATUS EXAMINATION: Stable from last visit. IMPRESSION AND PLAN: Dementia, dealing comfortably, awaiting placement. We will continue with primary psychiatrist's treatment plan. JOB# [id number]
[2019-05-27] MEDS: Calcium Carb/Vit D 500 mg/200 U Tab PO SCH (09:20)
[2019-05-27] MEDS: Multivitamin w/ Minerals Tab PO SCH (09:21)
--- NOTE | 2019-05-27 12:23 | Internal Medicine Prog Note ---
Internal Medicine Subjective - Subjective Patient seen and examined:: with staff, chart reviewed Patient is:: awake, verbal, interactive, ambulating, confused Per staff patient has:: no adverse event, no episodes of fall, eating well, tolerating meds Internal Medicine Objective - Results Recent Labs: Laboratory Last Values POC Glucose 188 MG/DL (70 - 105) H 02/02/19 19:27 Triglycerides 162 mg/dL (<150) H 12/31/18 08:04 Cholesterol 234 mg/dL (<200) H 12/31/18 08:04 LDL Cholesterol Direct 155 mg/dL (75-193) 12/31/18 08:04 HDL Cholesterol 62 mg/dL (23-92) 12/31/18 08:04 - Physical Exam Vitals and I&O: Vital Signs Temp 97.8 F 05/27/19 05:43 Pulse 67 05/27/19 05:43 Resp 20 05/27/19 05:43 BP 118/64 05/27/19 05:43 Pulse Ox 96 05/27/19 05:43 Intake & Output 05/26/19 05/27/19 05/27/19 18:59 06:59 18:59 Intake Total 1200 480 Balance 1200 480 Intake: Oral 1200 480 Other: # Voids 1 # Bowel Movements 1 Active Medications: Current Medications Alendronate Sodium (Fosamax) 70 mg PO QWED [facility] Stop: 07/01/19 07:29 Last Admin: 05/23/19 09:15 Dose: 70 mg Calcium/Vitamin D (Oscal W/Vitamin D) 1 tab PO DAILY [facility] Stop: 07/09/19 08:59 Last Admin: 05/27/19 09:20 Dose: 1 tab Donepezil HCl (Aricept) 10 mg PO HS [facility] Last Admin: 05/26/19 20:15 Dose: 10 mg General: thin, appears younger HEENT: NC/AT, PERRLA, EOMI Neck: Supple, No JVD, No thyromegaly Lungs: CTAB Cardiovascular: RRR, Normal S1, Normal S2, with murmur Abdomen: soft, thin, non-distended, positive bowel sound Extremities: excoriation Internal Medicine Assmt/Plan - Assessment Assessment: alzheimers dementa elevated chol djd osteoporosis - Plan Plan: fall precaution nutritional support cont on calcium supplemetn will cont to follow dw rn add mvi placement pending Nutritional Asmnt/Malnutr-PDOC - Dietary Evaluation Malnutrition Findings (Please click <Entered> for more info): Nutritional Asmnt/Malnutrition Start: 01/04/19 09: 50 Text: Status: Complete Freq: Protocol: Document 01/04/19 14:59 LCHENG (Rec: 01/04/19 15:06 LCHENG [email or web address]) Nutritional Asmnt/Malnutrition Patient General Information Nutritional Screening Moderate Risk Diagnosis psychosis Pertinent Medical Hx/Surgical Hx dementia, DJD, osteoporosis Subjective Information pt seen lying in bed, awake and alert, stated food has beed great. Pt is not a big eater. Encourage to eat balanced meals and pt agreed with it. Per EMR, PO intake 75 -100% Current Diet Order/ Nutrition Support regular Pertinent Medications reviewed Pertinent Labs 12/31 reviewed Nutritional Hx/Data Height 1.65 m Height (Calculated Centimeters) 165.1 Current Weight (lbs) 74.843 kg Weight (Calculated Kilograms) 74.8 Weight (Calculated Grams) 13684.7 [place] Body Weight 125 Body Mass Index (BMI) 27.4 Weight Status Overweight GI Symptoms GI Symptoms None Last BM 01/04 x 2 Difficult in: None Skin Integrity/Comment: intact Current %PO Good (75-100%) Estimated Nutritional Goals BEE in Kcals: Using Current wt Calories/Kcals/Kg 23-27 Kcals Calculated 7417-0253 Protein: Using Current wt Protein g/k.8 Protein Calculated 60 Fluid: ml 1725-1998ml (1ml/kcal) Nutritional Problem No current Nutrition Prob Problem N/A Malnutrition Alert Is there a minimum of two criteria No selected? Query Text:Check all the applicable criteria. A minimum of two criteria are recommended for diagnosis of either severe or non-severe malnutrition. Malnutrition Related to Morbid Obesity Malnutrition related to morbid obesity No Intervention/Recommendation Comments 1. Continue with regular diet as ordered. 2. Monitor PO intake, wt, labs and skin integrity 3. F/U as low risk in 7 days Expected Outcomes/Goals Expected Outcomes/Goals 1. PO intake to meet at least 75% of nutritional needs. 2. Wt stability, skin to remain intact, labs to approach WNL.
--- NOTE | 2019-05-27 19:14 | Progress Notes ---
DATE: 05/27/2019 SUBJECTIVE: The patient was seen and evaluated. The patient's chart reviewed. No acute events reported overnight. Today on [id number] evaluation, the patient denies any complications or side effects of medications. The patient is perseverate about leaving. MENTAL STATUS EXAMINATION: Stable from last visit. ASSESSMENT AND PLAN: Dementia, awaiting placement. JOB# [id number]
[2019-05-28] MEDS: Multivitamin w/ Minerals Tab PO SCH (08:59)
[2019-05-28] MEDS: Calcium Carb/Vit D 500 mg/200 U Tab PO SCH (08:59)
--- NOTE | 2019-05-28 12:32 | Internal Medicine Prog Note ---
Internal Medicine Subjective - Subjective Patient seen and examined:: with staff, chart reviewed Patient is:: awake, verbal, interactive, ambulating, confused Per staff patient has:: no adverse event, no episodes of fall, eating well, tolerating meds Internal Medicine Objective - Results Recent Labs: Laboratory Last Values POC Glucose 188 MG/DL (70 - 105) H 02/02/19 19:27 Triglycerides 162 mg/dL (<150) H 12/31/18 08:04 Cholesterol 234 mg/dL (<200) H 12/31/18 08:04 LDL Cholesterol Direct 155 mg/dL (75-193) 12/31/18 08:04 HDL Cholesterol 62 mg/dL (23-92) 12/31/18 08:04 - Physical Exam Vitals and I&O: Vital Signs Temp 97.7 F 05/28/19 05:28 Pulse 65 05/28/19 05:28 Resp 18 05/28/19 08:00 BP 113/68 05/28/19 05:28 Pulse Ox 98 05/28/19 05:28 Intake & Output 05/27/19 05/28/19 05/28/19 18:59 06:59 18:59 Intake Total 900 300 Balance 900 300 Intake: Oral 900 300 Other: # Voids 3 1 # Bowel Movements 1 0 Active Medications: Current Medications Alendronate Sodium (Fosamax) 70 mg PO QWED [facility] Stop: 07/01/19 07:29 Last Admin: 05/23/19 09:15 Dose: 70 mg Calcium/Vitamin D (Oscal W/Vitamin D) 1 tab PO DAILY [facility] Stop: 07/09/19 08:59 Last Admin: 05/28/19 08:59 Dose: 1 tab Donepezil HCl (Aricept) 10 mg PO HS [facility] Last Admin: 05/27/19 20:13 Dose: 10 mg General: thin, appears younger HEENT: NC/AT, PERRLA, EOMI Neck: Supple, No JVD, No thyromegaly Lungs: CTAB Cardiovascular: RRR, Normal S1, Normal S2, with murmur Abdomen: soft, thin, non-distended, positive bowel sound Extremities: excoriation Internal Medicine Assmt/Plan - Assessment Assessment: alzheimers dementa elevated chol djd osteoporosis - Plan Plan: fall precaution nutritional support cont on calcium supplemetn will cont to follow dw rn add mvi placement pending Nutritional Asmnt/Malnutr-PDOC - Dietary Evaluation Malnutrition Findings (Please click <Entered> for more info): Nutritional Asmnt/Malnutrition Start: 01/04/19 09: 50 Text: Status: Complete Freq: Protocol: Document 01/04/19 14:59 LCHENG (Rec: 01/04/19 15:06 LCJOSEG [email or web address]) Nutritional Asmnt/Malnutrition Patient General Information Nutritional Screening Moderate Risk Diagnosis psychosis Pertinent Medical Hx/Surgical Hx dementia, DJD, osteoporosis Subjective Information pt seen lying in bed, awake and alert, stated food has beed great. Pt is not a big eater. Encourage to eat balanced meals and pt agreed with it. Per EMR, PO intake 75 -100% Current Diet Order/ Nutrition Support regular Pertinent Medications reviewed Pertinent Labs 12/31 reviewed Nutritional Hx/Data Height 1.65 m Height (Calculated Centimeters) 165.1 Current Weight (lbs) 74.843 kg Weight (Calculated Kilograms) 74.8 Weight (Calculated Grams) 98021.7 [place] Body Weight 125 Body Mass Index (BMI) 27.4 Weight Status Overweight GI Symptoms GI Symptoms None Last BM 01/04 x 2 Difficult in: None Skin Integrity/Comment: intact Current %PO Good (75-100%) Estimated Nutritional Goals BEE in Kcals: Using Current wt Calories/Kcals/Kg 23-27 Kcals Calculated 9309-2764 Protein: Using Current wt Protein g/k.8 Protein Calculated 60 Fluid: ml 1725-1998ml (1ml/kcal) Nutritional Problem No current Nutrition Prob Problem N/A Malnutrition Alert Is there a minimum of two criteria No selected? Query Text:Check all the applicable criteria. A minimum of two criteria are recommended for diagnosis of either severe or non-severe malnutrition. Malnutrition Related to Morbid Obesity Malnutrition related to morbid obesity No Intervention/Recommendation Comments 1. Continue with regular diet as ordered. 2. Monitor PO intake, wt, labs and skin integrity 3. F/U as low risk in 7 days Expected Outcomes/Goals Expected Outcomes/Goals 1. PO intake to meet at least 75% of nutritional needs. 2. Wt stability, skin to remain intact, labs to approach WNL.
--- NOTE | 2019-05-28 23:44 | Progress Notes ---
DATE: 05/28/2019 SUBJECTIVE: The patient in the hospital, likely at her baseline, confused, disoriented. No medication side effects, dementia, awaiting placement. Resting comfortably. Side effects noted. None noted on exam. Medications were noted. JOB# [id number]
[2019-05-29] MEDS: Calcium Carb/Vit D 500 mg/200 U Tab PO SCH (08:19)
[2019-05-29] MEDS: Multivitamin w/ Minerals Tab PO SCH (08:19)
--- NOTE | 2019-05-29 12:23 | Internal Medicine Prog Note ---
Internal Medicine Subjective - Subjective Patient seen and examined:: with staff, chart reviewed Patient is:: awake, verbal, interactive, ambulating, confused Per staff patient has:: no adverse event, no episodes of fall, eating well, tolerating meds Internal Medicine Objective - Results Recent Labs: Laboratory Last Values POC Glucose 188 MG/DL (70 - 105) H 02/02/19 19:27 Triglycerides 162 mg/dL (<150) H 12/31/18 08:04 Cholesterol 234 mg/dL (<200) H 12/31/18 08:04 LDL Cholesterol Direct 155 mg/dL (75-193) 12/31/18 08:04 HDL Cholesterol 62 mg/dL (23-92) 12/31/18 08:04 - Physical Exam Vitals and I&O: Vital Signs Temp 97.1 F 05/29/19 05:27 Pulse 52 05/29/19 05:27 Resp 18 05/29/19 08:00 BP 114/69 05/29/19 05:27 Pulse Ox 96 05/29/19 05:27 Intake & Output 05/28/19 05/29/19 05/29/19 18:59 06:59 18:59 Intake Total 900 360 Balance 900 360 Intake: Oral 900 360 Other: # Voids 3 1 # Bowel Movements 1 0 Active Medications: Current Medications Alendronate Sodium (Fosamax) 70 mg PO QWED [facility] Stop: 07/01/19 07:29 Last Admin: 05/23/19 09:15 Dose: 70 mg Calcium/Vitamin D (Oscal W/Vitamin D) 1 tab PO DAILY [facility] Stop: 07/09/19 08:59 Last Admin: 05/29/19 08:19 Dose: 1 tab Donepezil HCl (Aricept) 10 mg PO HS [facility] Last Admin: 05/28/19 20:54 Dose: 10 mg General: thin, appears younger HEENT: NC/AT, PERRLA, EOMI Neck: Supple, No JVD, No thyromegaly Lungs: CTAB Cardiovascular: RRR, Normal S1, Normal S2, with murmur Abdomen: soft, thin, non-distended, positive bowel sound Extremities: excoriation Internal Medicine Assmt/Plan - Assessment Assessment: alzheimers dementa elevated chol djd osteoporosis - Plan Plan: fall precaution nutritional support cont on calcium supplemetn will cont to follow dw rn add mvi placement pending Nutritional Asmnt/Malnutr-PDOC - Dietary Evaluation Malnutrition Findings (Please click <Entered> for more info): Nutritional Asmnt/Malnutrition Start: 01/04/19 09: 50 Text: Status: Complete Freq: Protocol: Document 01/04/19 14:59 LCHENG (Rec: 01/04/19 15:06 LCJOSEG [id number]) Nutritional Asmnt/Malnutrition Patient General Information Nutritional Screening Moderate Risk Diagnosis psychosis Pertinent Medical Hx/Surgical Hx dementia, DJD, osteoporosis Subjective Information pt seen lying in bed, awake and alert, stated food has beed great. Pt is not a big eater. Encourage to eat balanced meals and pt agreed with it. Per EMR, PO intake 75 -100% Current Diet Order/ Nutrition Support regular Pertinent Medications reviewed Pertinent Labs 12/31 reviewed Nutritional Hx/Data Height 1.65 m Height (Calculated Centimeters) 165.1 Current Weight (lbs) 74.843 kg Weight (Calculated Kilograms) 74.8 Weight (Calculated Grams) 74258.7 [place] Body Weight 125 Body Mass Index (BMI) 27.4 Weight Status Overweight GI Symptoms GI Symptoms None Last BM 01/04 x 2 Difficult in: None Skin Integrity/Comment: intact Current %PO Good (75-100%) Estimated Nutritional Goals BEE in Kcals: Using Current wt Calories/Kcals/Kg 23-27 Kcals Calculated 3886-3484 Protein: Using Current wt Protein g/k.8 Protein Calculated 60 Fluid: ml 1725-1998ml (1ml/kcal) Nutritional Problem No current Nutrition Prob Problem N/A Malnutrition Alert Is there a minimum of two criteria No selected? Query Text:Check all the applicable criteria. A minimum of two criteria are recommended for diagnosis of either severe or non-severe malnutrition. Malnutrition Related to Morbid Obesity Malnutrition related to morbid obesity No Intervention/Recommendation Comments 1. Continue with regular diet as ordered. 2. Monitor PO intake, wt, labs and skin integrity 3. F/U as low risk in 7 days Expected Outcomes/Goals Expected Outcomes/Goals 1. PO intake to meet at least 75% of nutritional needs. 2. Wt stability, skin to remain intact, labs to approach WNL.
[2019-05-30] MEDS: Calcium Carb/Vit D 500 mg/200 U Tab PO SCH (08:18)
[2019-05-30] MEDS: Multivitamin w/ Minerals Tab PO SCH (08:18)
--- NOTE | 2019-05-30 12:49 | Internal Medicine Prog Note ---
Internal Medicine Subjective - Subjective Patient seen and examined:: with staff, chart reviewed Patient is:: awake, verbal, interactive, ambulating, confused Per staff patient has:: no adverse event, no episodes of fall, eating well, tolerating meds Internal Medicine Objective - Results Recent Labs: Laboratory Last Values POC Glucose 188 MG/DL (70 - 105) H 02/02/19 19:27 Triglycerides 162 mg/dL (<150) H 12/31/18 08:04 Cholesterol 234 mg/dL (<200) H 12/31/18 08:04 LDL Cholesterol Direct 155 mg/dL (75-193) 12/31/18 08:04 HDL Cholesterol 62 mg/dL (23-92) 12/31/18 08:04 - Physical Exam Vitals and I&O: Vital Signs Temp 98.0 F 05/30/19 05:00 Pulse 70 05/30/19 05:00 Resp 19 05/30/19 05:00 BP 119/74 05/30/19 05:00 Pulse Ox 99 05/30/19 05:00 Intake & Output 05/29/19 05/30/19 05/30/19 18:59 06:59 18:59 Intake Total 900 480 Balance 900 480 Intake: Oral 900 480 Other: # Voids 3 2 # Bowel Movements 1 Active Medications: Current Medications Alendronate Sodium (Fosamax) 70 mg PO QWED [facility] Stop: 07/01/19 07:29 Last Admin: 05/30/19 06:37 Dose: 70 mg Calcium/Vitamin D (Oscal W/Vitamin D) 1 tab PO DAILY [facility] Stop: 07/09/19 08:59 Last Admin: 05/30/19 08:18 Dose: 1 tab Donepezil HCl (Aricept) 10 mg PO HS [facility] Last Admin: 05/29/19 20:26 Dose: 10 mg General: thin, appears younger HEENT: NC/AT, PERRLA, EOMI Neck: Supple, No JVD, No thyromegaly Lungs: CTAB Cardiovascular: RRR, Normal S1, Normal S2, with murmur Abdomen: soft, thin, non-distended, positive bowel sound Extremities: excoriation Internal Medicine Assmt/Plan - Assessment Assessment: alzheimers dementa elevated chol djd osteoporosis - Plan Plan: fall precaution nutritional support cont on calcium supplemetn will cont to follow dw rn add mvi placement pending Nutritional Asmnt/Malnutr-PDOC - Dietary Evaluation Malnutrition Findings (Please click <Entered> for more info): Nutritional Asmnt/Malnutrition Start: 01/04/19 09: 50 Text: Status: Complete Freq: Protocol: Document 01/04/19 14:59 LCHENG (Rec: 01/04/19 15:06 LCHENG [email or web address]) Nutritional Asmnt/Malnutrition Patient General Information Nutritional Screening Moderate Risk Diagnosis psychosis Pertinent Medical Hx/Surgical Hx dementia, DJD, osteoporosis Subjective Information pt seen lying in bed, awake and alert, stated food has beed great. Pt is not a big eater. Encourage to eat balanced meals and pt agreed with it. Per EMR, PO intake 75 -100% Current Diet Order/ Nutrition Support regular Pertinent Medications reviewed Pertinent Labs 12/31 reviewed Nutritional Hx/Data Height 1.65 m Height (Calculated Centimeters) 165.1 Current Weight (lbs) 74.843 kg Weight (Calculated Kilograms) 74.8 Weight (Calculated Grams) 52138.7 [place] Body Weight 125 Body Mass Index (BMI) 27.4 Weight Status Overweight GI Symptoms GI Symptoms None Last BM 01/04 x 2 Difficult in: None Skin Integrity/Comment: intact Current %PO Good (75-100%) Estimated Nutritional Goals BEE in Kcals: Using Current wt Calories/Kcals/Kg 23-27 Kcals Calculated 2452-1154 Protein: Using Current wt Protein g/k.8 Protein Calculated 60 Fluid: ml 1725-1998ml (1ml/kcal) Nutritional Problem No current Nutrition Prob Problem N/A Malnutrition Alert Is there a minimum of two criteria No selected? Query Text:Check all the applicable criteria. A minimum of two criteria are recommended for diagnosis of either severe or non-severe malnutrition. Malnutrition Related to Morbid Obesity Malnutrition related to morbid obesity No Intervention/Recommendation Comments 1. Continue with regular diet as ordered. 2. Monitor PO intake, wt, labs and skin integrity 3. F/U as low risk in 7 days Expected Outcomes/Goals Expected Outcomes/Goals 1. PO intake to meet at least 75% of nutritional needs. 2. Wt stability, skin to remain intact, labs to approach WNL.
--- NOTE | 2019-05-30 20:49 | Progress Notes ---
DATE: 05/29/2019 SUBJECTIVE: Chart reviewed and the patient interviewed. Also discussed the patient's condition with the staff and reviewed records and labs. The patient stays calm and she is still cooperative and compliant with his treatment and is taking her medications. She is still confused and wandering around the unit, but no behavioral issues. The patient also is still waiting for placement. ASSESSMENT: The patient is still considered to be gravely disabled. TREATMENT PLAN: Plan is to continue current treatment and working with rehabilitation caseworker in regard to placement issue. JOB# [id number]
--- NOTE | 2019-05-30 22:08 | Progress Notes ---
DATE: 05/30/2019 PSYCHIATRIC PROGRESS NOTE SUBJECTIVE: Chart reviewed and the patient interviewed. Also discussed the patient's condition with the staff and reviewed records and labs. The patient continued to be confused and forgetful, but calm and easy to follow directions. The patient also is trying to interact and socialize more. Also, she is trying to make her needs known. The patient also is compliant with taking her medications with no side effects. ASSESSMENT: The patient is still confused and considered gravely disabled. TREATMENT PLAN: Continue to monitor her behavior and her medications. Also, continue to work on discharge plans. I talked to the digital strategy manager of the unit and he said that the trial attorney is still trying to get her situated and he does not want to release her money until other legal issues are completed. At the same time, we will continue monitoring her medications and continue to follow up. JOB# [id number]
[2019-05-31] MEDS: Calcium Carb/Vit D 500 mg/200 U Tab PO SCH (08:01)
[2019-05-31] MEDS: Multivitamin w/ Minerals Tab PO SCH (08:02)
--- NOTE | 2019-05-31 15:35 | Internal Medicine Prog Note ---
Internal Medicine Subjective - Subjective Patient seen and examined:: with staff, chart reviewed Patient is:: awake, verbal, interactive, ambulating, confused Per staff patient has:: no adverse event, no episodes of fall, eating well, tolerating meds Internal Medicine Objective - Results Recent Labs: Laboratory Last Values POC Glucose 188 MG/DL (70 - 105) H 02/02/19 19:27 Triglycerides 162 mg/dL (<150) H 12/31/18 08:04 Cholesterol 234 mg/dL (<200) H 12/31/18 08:04 LDL Cholesterol Direct 155 mg/dL (75-193) 12/31/18 08:04 HDL Cholesterol 62 mg/dL (23-92) 12/31/18 08:04 - Physical Exam Vitals and I&O: Vital Signs Temp 97.4 F 05/31/19 14:00 Pulse 64 05/31/19 14:00 Resp 18 05/31/19 14:00 BP 120/76 05/31/19 14:00 Pulse Ox 100 05/31/19 14:00 Intake & Output 05/30/19 05/31/19 05/31/19 18:59 06:59 18:59 Intake Total 900 120 Balance 900 120 Intake: Oral 900 120 Other: # Voids 3 3 # Bowel Movements 1 1 Active Medications: Current Medications Alendronate Sodium (Fosamax) 70 mg PO QWED [facility] Stop: 07/01/19 07:29 Last Admin: 05/30/19 06:37 Dose: 70 mg Calcium/Vitamin D (Oscal W/Vitamin D) 1 tab PO DAILY [facility] Stop: 07/09/19 08:59 Last Admin: 05/31/19 08:01 Dose: 1 tab Donepezil HCl (Aricept) 10 mg PO HS [facility] Last Admin: 05/30/19 20:52 Dose: 10 mg General: thin, appears younger HEENT: NC/AT, PERRLA, EOMI Neck: Supple, No JVD, No thyromegaly Lungs: CTAB Cardiovascular: RRR, Normal S1, Normal S2, with murmur Abdomen: soft, thin, non-distended, positive bowel sound Extremities: excoriation Internal Medicine Assmt/Plan - Assessment Assessment: alzheimers dementa elevated chol djd osteoporosis - Plan Plan: fall precaution nutritional support cont on calcium supplemetn will cont to follow dw rn add mvi placement pending Nutritional Asmnt/Malnutr-PDOC - Dietary Evaluation Malnutrition Findings (Please click <Entered> for more info): Nutritional Asmnt/Malnutrition Start: 01/04/19 09: 50 Text: Status: Complete Freq: Protocol: Document 01/04/19 14:59 LCHENG (Rec: 01/04/19 15:06 LCJOSEG [id number]) Nutritional Asmnt/Malnutrition Patient General Information Nutritional Screening Moderate Risk Diagnosis psychosis Pertinent Medical Hx/Surgical Hx dementia, DJD, osteoporosis Subjective Information pt seen lying in bed, awake and alert, stated food has beed great. Pt is not a big eater. Encourage to eat balanced meals and pt agreed with it. Per EMR, PO intake 75 -100% Current Diet Order/ Nutrition Support regular Pertinent Medications reviewed Pertinent Labs 12/31 reviewed Nutritional Hx/Data Height 1.65 m Height (Calculated Centimeters) 165.1 Current Weight (lbs) 74.843 kg Weight (Calculated Kilograms) 74.8 Weight (Calculated Grams) 26421.7 [place] Body Weight 125 Body Mass Index (BMI) 27.4 Weight Status Overweight GI Symptoms GI Symptoms None Last BM 01/04 x 2 Difficult in: None Skin Integrity/Comment: intact Current %PO Good (75-100%) Estimated Nutritional Goals BEE in Kcals: Using Current wt Calories/Kcals/Kg 23-27 Kcals Calculated 9286-4441 Protein: Using Current wt Protein g/k.8 Protein Calculated 60 Fluid: ml 1725-1998ml (1ml/kcal) Nutritional Problem No current Nutrition Prob Problem N/A Malnutrition Alert Is there a minimum of two criteria No selected? Query Text:Check all the applicable criteria. A minimum of two criteria are recommended for diagnosis of either severe or non-severe malnutrition. Malnutrition Related to Morbid Obesity Malnutrition related to morbid obesity No Intervention/Recommendation Comments 1. Continue with regular diet as ordered. 2. Monitor PO intake, wt, labs and skin integrity 3. F/U as low risk in 7 days Expected Outcomes/Goals Expected Outcomes/Goals 1. PO intake to meet at least 75% of nutritional needs. 2. Wt stability, skin to remain intact, labs to approach WNL.
--- NOTE | 2019-05-31 21:18 | Progress Notes ---
DATE: 05/31/2019 SUBJECTIVE: Chart reviewed and the patient interviewed. Also discussed the patient's condition with the staff and reviewed records and labs. The patient continued to be withdrawn and anxious. The patient also is trying to socialize a little bit more but she still seems to be in a depressed mood. "I wanna go home." The patient is still unable to provide any safe plan for self-care and she still needs a lot of assistance and redirections. Otherwise, the patient is compliant with taking her medications with no side effects of medications. ASSESSMENT: The patient is still considered to be gravely disabled and needs close monitoring. TREATMENT PLAN: Continue monitoring her behavior and also continue to work on discharge plans and placement issue. [facility]# [id number]
[2019-06-01] MEDS: Multivitamin w/ Minerals Tab PO SCH (09:10)
[2019-06-01] MEDS: Calcium Carb/Vit D 500 mg/200 U Tab PO SCH (09:10)
--- NOTE | 2019-06-01 12:53 | Internal Medicine Prog Note ---
Internal Medicine Subjective - Subjective Patient seen and examined:: with staff, chart reviewed Patient is:: awake, verbal, interactive, ambulating, confused Per staff patient has:: no adverse event, no episodes of fall, eating well, tolerating meds Internal Medicine Objective - Results Recent Labs: Laboratory Last Values POC Glucose 188 MG/DL (70 - 105) H 02/02/19 19:27 Triglycerides 162 mg/dL (<150) H 12/31/18 08:04 Cholesterol 234 mg/dL (<200) H 12/31/18 08:04 LDL Cholesterol Direct 155 mg/dL (75-193) 12/31/18 08:04 HDL Cholesterol 62 mg/dL (23-92) 12/31/18 08:04 - Physical Exam Vitals and I&O: Vital Signs Temp 97.5 F 05/31/19 20:00 Pulse 58 05/31/19 20:00 Resp 18 05/31/19 20:00 BP 112/53 05/31/19 20:00 Pulse Ox 96 05/31/19 20:00 Intake & Output 05/31/19 06/01/19 06/01/19 18:59 06:59 18:59 Intake Total 1200 Balance 1200 Intake: Oral 1200 Other: # Bowel Movements 1 Active Medications: Current Medications Alendronate Sodium (Fosamax) 70 mg PO QWED [facility] Stop: 07/01/19 07:29 Last Admin: 05/30/19 06:37 Dose: 70 mg Calcium/Vitamin D (Oscal W/Vitamin D) 1 tab PO DAILY [facility] Stop: 07/09/19 08:59 Last Admin: 06/01/19 09:10 Dose: 1 tab Donepezil HCl (Aricept) 10 mg PO HS [facility] Last Admin: 05/31/19 21:38 Dose: 10 mg General: thin, appears younger HEENT: NC/AT, PERRLA, EOMI Neck: Supple, No JVD, No thyromegaly Lungs: CTAB Cardiovascular: RRR, Normal S1, Normal S2, with murmur Abdomen: soft, thin, non-distended, positive bowel sound Extremities: excoriation Internal Medicine Assmt/Plan - Assessment Assessment: alzheimers dementa elevated chol djd osteoporosis - Plan Plan: fall precaution nutritional support cont on calcium supplemetn will cont to follow dw rn add mvi placement pending Nutritional Asmnt/Malnutr-PDOC - Dietary Evaluation Malnutrition Findings (Please click <Entered> for more info): Nutritional Asmnt/Malnutrition Start: 01/04/19 09: 50 Text: Status: Complete Freq: Protocol: Document 01/04/19 14:59 LCHENG (Rec: 01/04/19 15:06 [email or web address] [id number]) Nutritional Asmnt/Malnutrition Patient General Information Nutritional Screening Moderate Risk Diagnosis psychosis Pertinent Medical Hx/Surgical Hx dementia, DJD, osteoporosis Subjective Information pt seen lying in bed, awake and alert, stated food has beed great. Pt is not a big eater. Encourage to eat balanced meals and pt agreed with it. Per EMR, PO intake 75 -100% Current Diet Order/ Nutrition Support regular Pertinent Medications reviewed Pertinent Labs 12/31 reviewed Nutritional Hx/Data Height 1.65 m Height (Calculated Centimeters) 165.1 Current Weight (lbs) 74.843 kg Weight (Calculated Kilograms) 74.8 Weight (Calculated Grams) 93856.7 [place] Body Weight 125 Body Mass Index (BMI) 27.4 Weight Status Overweight GI Symptoms GI Symptoms None Last BM 01/04 x 2 Difficult in: None Skin Integrity/Comment: intact Current %PO Good (75-100%) Estimated Nutritional Goals BEE in Kcals: Using Current wt Calories/Kcals/Kg 23-27 Kcals Calculated 4516-2540 Protein: Using Current wt Protein g/k.8 Protein Calculated 60 Fluid: ml 1725-1998ml (1ml/kcal) Nutritional Problem No current Nutrition Prob Problem N/A Malnutrition Alert Is there a minimum of two criteria No selected? Query Text:Check all the applicable criteria. A minimum of two criteria are recommended for diagnosis of either severe or non-severe malnutrition. Malnutrition Related to Morbid Obesity Malnutrition related to morbid obesity No Intervention/Recommendation Comments 1. Continue with regular diet as ordered. 2. Monitor PO intake, wt, labs and skin integrity 3. F/U as low risk in 7 days Expected Outcomes/Goals Expected Outcomes/Goals 1. PO intake to meet at least 75% of nutritional needs. 2. Wt stability, skin to remain intact, labs to approach WNL.
--- NOTE | 2019-06-02 03:54 | Progress Notes ---
DATE: 06/01/2019 SUBJECTIVE: Chart reviewed and the patient interviewed. Also discussed the patient's condition with the staff and reviewed records and labs. The patient remained calm and also interacting more. She is still confused and still needs lots of redirections. The patient also is still at times seems to be depressed and asking to go home. At the same time, the patient still cannot turn to placement until legal issues completed. ASSESSMENT: The patient is still considered to be gravely disabled. TREATMENT PLAN: Continue monitoring behavior and condition and will continue to follow up. JOB# [id number]
[2019-06-02] MEDS: Calcium Carb/Vit D 500 mg/200 U Tab PO SCH (09:06)
[2019-06-02] MEDS: Multivitamin w/ Minerals Tab PO SCH (09:06)
--- NOTE | 2019-06-02 14:06 | Internal Medicine Prog Note ---
Internal Medicine Subjective - Subjective Patient seen and examined:: with staff, chart reviewed Patient is:: awake, verbal, interactive, ambulating, confused Per staff patient has:: no adverse event, no episodes of fall, eating well, tolerating meds Internal Medicine Objective - Results Recent Labs: Laboratory Last Values POC Glucose 188 MG/DL (70 - 105) H 02/02/19 19:27 Triglycerides 162 mg/dL (<150) H 12/31/18 08:04 Cholesterol 234 mg/dL (<200) H 12/31/18 08:04 LDL Cholesterol Direct 155 mg/dL (75-193) 12/31/18 08:04 HDL Cholesterol 62 mg/dL (23-92) 12/31/18 08:04 - Physical Exam Vitals and I&O: Vital Signs Temp 97.8 F 06/02/19 05:51 Pulse 70 06/02/19 05:51 Resp 20 06/02/19 05:51 BP 112/64 06/02/19 05:51 Pulse Ox 98 06/02/19 05:51 Intake & Output 06/01/19 06/02/19 06/02/19 18:59 06:59 18:59 Intake Total 1000 Balance 1000 Intake: Oral 1000 Other: # Voids 4 # Bowel Movements 1 Active Medications: Current Medications Alendronate Sodium (Fosamax) 70 mg PO QWED [facility] Stop: 07/01/19 07:29 Last Admin: 05/30/19 06:37 Dose: 70 mg Calcium/Vitamin D (Oscal W/Vitamin D) 1 tab PO DAILY [facility] Stop: 07/09/19 08:59 Last Admin: 06/02/19 09:06 Dose: 1 tab Donepezil HCl (Aricept) 10 mg PO HS [facility] Last Admin: 06/01/19 20:51 Dose: 10 mg General: thin, appears younger HEENT: NC/AT, PERRLA, EOMI Neck: Supple, No JVD, No thyromegaly Lungs: CTAB Cardiovascular: RRR, Normal S1, Normal S2, with murmur Abdomen: soft, thin, non-distended, positive bowel sound Extremities: excoriation Internal Medicine Assmt/Plan - Assessment Assessment: alzheimers dementa elevated chol djd osteoporosis - Plan Plan: fall precaution nutritional support cont on calcium supplemetn will cont to follow dw rn add mvi placement ongoing Nutritional Asmnt/Malnutr-PDOC - Dietary Evaluation Malnutrition Findings (Please click <Entered> for more info): Nutritional Asmnt/Malnutrition Start: 01/04/19 09: 50 Text: Status: Complete Freq: Protocol: Document 01/04/19 14:59 LCJOSEG (Rec: 01/04/19 15:06 LCCOREY [id number]) Nutritional Asmnt/Malnutrition Patient General Information Nutritional Screening Moderate Risk Diagnosis psychosis Pertinent Medical Hx/Surgical Hx dementia, DJD, osteoporosis Subjective Information pt seen lying in bed, awake and alert, stated food has beed great. Pt is not a big eater. Encourage to eat balanced meals and pt agreed with it. Per EMR, PO intake 75 -100% Current Diet Order/ Nutrition Support regular Pertinent Medications reviewed Pertinent Labs 12/31 reviewed Nutritional Hx/Data Height 1.65 m Height (Calculated Centimeters) 165.1 Current Weight (lbs) 74.843 kg Weight (Calculated Kilograms) 74.8 Weight (Calculated Grams) 89986.7 [place] Body Weight 125 Body Mass Index (BMI) 27.4 Weight Status Overweight GI Symptoms GI Symptoms None Last BM 01/04 x 2 Difficult in: None Skin Integrity/Comment: intact Current %PO Good (75-100%) Estimated Nutritional Goals BEE in Kcals: Using Current wt Calories/Kcals/Kg 23-27 Kcals Calculated 8631-4549 Protein: Using Current wt Protein g/k.8 Protein Calculated 60 Fluid: ml 1725-1998ml (1ml/kcal) Nutritional Problem No current Nutrition Prob Problem N/A Malnutrition Alert Is there a minimum of two criteria No selected? Query Text:Check all the applicable criteria. A minimum of two criteria are recommended for diagnosis of either severe or non-severe malnutrition. Malnutrition Related to Morbid Obesity Malnutrition related to morbid obesity No Intervention/Recommendation Comments 1. Continue with regular diet as ordered. 2. Monitor PO intake, wt, labs and skin integrity 3. F/U as low risk in 7 days Expected Outcomes/Goals Expected Outcomes/Goals 1. PO intake to meet at least 75% of nutritional needs. 2. Wt stability, skin to remain intact, labs to approach WNL.
--- NOTE | 2019-06-02 22:41 | Progress Notes ---
DATE: 06/02/2019 PSYCHIATRIC PROGRESS NOTE SUBJECTIVE: Chart reviewed and patient interviewed. Also discussed patient's condition with the staff and reviewed records and labs. The patient's affect is brighter. The patient is still withdrawn. She also still has difficulty making her needs known and she is still concerned to be gravely disabled. The patient also is still cooperative with her treatment. No side effects of medications. ASSESSMENT: The patient is still considered to be gravely disabled. TREATMENT PLAN: Continue to monitor behavior and condition closely. Also, continue adjusting psychotropic medications and work on placement issue and discharge plans. JOB# [id number]
[2019-06-03] MEDS: Multivitamin w/ Minerals Tab PO SCH (08:51)
[2019-06-03] MEDS: Calcium Carb/Vit D 500 mg/200 U Tab PO SCH (08:51)
--- NOTE | 2019-06-03 12:12 | Internal Medicine Prog Note ---
Internal Medicine Subjective - Subjective Patient seen and examined:: with staff, chart reviewed Patient is:: awake, verbal, interactive, ambulating, confused Per staff patient has:: no adverse event, no episodes of fall, eating well, tolerating meds Internal Medicine Objective - Results Recent Labs: Laboratory Last Values POC Glucose 188 MG/DL (70 - 105) H 02/02/19 19:27 Triglycerides 162 mg/dL (<150) H 12/31/18 08:04 Cholesterol 234 mg/dL (<200) H 12/31/18 08:04 LDL Cholesterol Direct 155 mg/dL (75-193) 12/31/18 08:04 HDL Cholesterol 62 mg/dL (23-92) 12/31/18 08:04 - Physical Exam Vitals and I&O: Vital Signs Temp 97.5 F 06/03/19 06:26 Pulse 71 06/03/19 06:26 Resp 19 06/03/19 06:26 BP 119/70 06/03/19 06:26 Pulse Ox 99 06/03/19 06:26 Intake & Output 06/02/19 06/03/19 06/03/19 18:59 06:59 18:59 Intake Total 1500 120 Balance 1500 120 Intake: Oral 1500 120 Other: # Voids 4 3 # Bowel Movements 0 Active Medications: Current Medications Alendronate Sodium (Fosamax) 70 mg PO QWED [facility] Stop: 07/01/19 07:29 Last Admin: 05/30/19 06:37 Dose: 70 mg Calcium/Vitamin D (Oscal W/Vitamin D) 1 tab PO DAILY [facility] Stop: 07/09/19 08:59 Last Admin: 06/03/19 08:51 Dose: 1 tab Donepezil HCl (Aricept) 10 mg PO HS [facility] Last Admin: 06/02/19 20:29 Dose: 10 mg General: thin, appears younger HEENT: NC/AT, PERRLA, EOMI Neck: Supple, No JVD, No thyromegaly Lungs: CTAB Cardiovascular: RRR, Normal S1, Normal S2, with murmur Abdomen: soft, thin, non-distended, positive bowel sound Extremities: excoriation Internal Medicine Assmt/Plan - Assessment Assessment: alzheimers dementa elevated chol djd osteoporosis - Plan Plan: fall precaution nutritional support cont on calcium supplemetn will cont to follow dw rn add mvi placement ongoing Nutritional Asmnt/Malnutr-PDOC - Dietary Evaluation Malnutrition Findings (Please click <Entered> for more info): Nutritional Asmnt/Malnutrition Start: 01/04/19 09: 50 Text: Status: Complete Freq: Protocol: Document 01/04/19 14:59 LCHENG (Rec: 01/04/19 15:06 LCHENG [email or web address]) Nutritional Asmnt/Malnutrition Patient General Information Nutritional Screening Moderate Risk Diagnosis psychosis Pertinent Medical Hx/Surgical Hx dementia, DJD, osteoporosis Subjective Information pt seen lying in bed, awake and alert, stated food has beed great. Pt is not a big eater. Encourage to eat balanced meals and pt agreed with it. Per EMR, PO intake 75 -100% Current Diet Order/ Nutrition Support regular Pertinent Medications reviewed Pertinent Labs 12/31 reviewed Nutritional Hx/Data Height 1.65 m Height (Calculated Centimeters) 165.1 Current Weight (lbs) 74.843 kg Weight (Calculated Kilograms) 74.8 Weight (Calculated Grams) 24332.7 [place] Body Weight 125 Body Mass Index (BMI) 27.4 Weight Status Overweight GI Symptoms GI Symptoms None Last BM 01/04 x 2 Difficult in: None Skin Integrity/Comment: intact Current %PO Good (75-100%) Estimated Nutritional Goals BEE in Kcals: Using Current wt Calories/Kcals/Kg 23-27 Kcals Calculated 3190-1569 Protein: Using Current wt Protein g/k.8 Protein Calculated 60 Fluid: ml 1725-1998ml (1ml/kcal) Nutritional Problem No current Nutrition Prob Problem N/A Malnutrition Alert Is there a minimum of two criteria No selected? Query Text:Check all the applicable criteria. A minimum of two criteria are recommended for diagnosis of either severe or non-severe malnutrition. Malnutrition Related to Morbid Obesity Malnutrition related to morbid obesity No Intervention/Recommendation Comments 1. Continue with regular diet as ordered. 2. Monitor PO intake, wt, labs and skin integrity 3. F/U as low risk in 7 days Expected Outcomes/Goals Expected Outcomes/Goals 1. PO intake to meet at least 75% of nutritional needs. 2. Wt stability, skin to remain intact, labs to approach WNL.
--- NOTE | 2019-06-04 07:22 | Progress Notes ---
DATE: PSYCHIATRIC PROGRESS NOTE SUBJECTIVE: Chart reviewed and the patient interviewed. Also discussed the patient's condition with the staff and reviewed records and labs. The patient is still confused and forgetful. The patient also is interacting minimally with other and in a confused state, but no aggressive or agitation or behavioral issues. She is still asking for "when I am going to go home." Otherwise, no major issues. ASSESSMENT: The patient is still considered to be gravely disabled and waiting for placement. TREATMENT PLAN: Continue to monitor behavior and condition and current medications and continue to work on placement issue and discharge plans. JOB# [id number]
[2019-06-04] MEDS: Calcium Carb/Vit D 500 mg/200 U Tab PO SCH (08:27)
[2019-06-04] MEDS: Multivitamin w/ Minerals Tab PO SCH (08:27)
--- NOTE | 2019-06-04 12:11 | Internal Medicine Prog Note ---
Internal Medicine Subjective - Subjective Patient seen and examined:: with staff, chart reviewed Patient is:: awake, verbal, interactive, ambulating, confused Per staff patient has:: no adverse event, no episodes of fall, eating well, tolerating meds Internal Medicine Objective - Results Recent Labs: Laboratory Last Values POC Glucose 188 MG/DL (70 - 105) H 02/02/19 19:27 Triglycerides 162 mg/dL (<150) H 12/31/18 08:04 Cholesterol 234 mg/dL (<200) H 12/31/18 08:04 LDL Cholesterol Direct 155 mg/dL (75-193) 12/31/18 08:04 HDL Cholesterol 62 mg/dL (23-92) 12/31/18 08:04 - Physical Exam Vitals and I&O: Vital Signs Temp 98.0 F 06/04/19 06:04 Pulse 53 06/04/19 06:04 Resp 18 06/04/19 06:04 BP 118/63 06/04/19 06:04 Pulse Ox 97 06/04/19 06:04 Intake & Output 06/03/19 06/04/19 06/04/19 18:59 06:59 18:59 Intake Total 1200 240 Balance 1200 240 Intake: Oral 1200 240 Other: # Voids 4 2 # Bowel Movements 1 0 Active Medications: Current Medications Alendronate Sodium (Fosamax) 70 mg PO QWED [facility] Stop: 07/01/19 07:29 Last Admin: 05/30/19 06:37 Dose: 70 mg Calcium/Vitamin D (Oscal W/Vitamin D) 1 tab PO DAILY [facility] Stop: 07/09/19 08:59 Last Admin: 06/04/19 08:27 Dose: 1 tab Donepezil HCl (Aricept) 10 mg PO HS [facility] Last Admin: 06/03/19 20:23 Dose: 10 mg General: thin, appears younger HEENT: NC/AT, PERRLA, EOMI Neck: Supple, No JVD, No thyromegaly Lungs: CTAB Cardiovascular: RRR, Normal S1, Normal S2, with murmur Abdomen: soft, thin, non-distended, positive bowel sound Extremities: excoriation Internal Medicine Assmt/Plan - Assessment Assessment: alzheimers dementa elevated chol djd osteoporosis - Plan Plan: fall precaution nutritional support cont on calcium supplemetn will cont to follow dw rn add mvi placement ongoing Nutritional Asmnt/Malnutr-PDOC - Dietary Evaluation Malnutrition Findings (Please click <Entered> for more info): Nutritional Asmnt/Malnutrition Start: 01/04/19 09: 50 Text: Status: Complete Freq: Protocol: Document 01/04/19 14:59 LCHENG (Rec: 01/04/19 15:06 LCHENG [email or web address]) Nutritional Asmnt/Malnutrition Patient General Information Nutritional Screening Moderate Risk Diagnosis psychosis Pertinent Medical Hx/Surgical Hx dementia, DJD, osteoporosis Subjective Information pt seen lying in bed, awake and alert, stated food has beed great. Pt is not a big eater. Encourage to eat balanced meals and pt agreed with it. Per EMR, PO intake 75 -100% Current Diet Order/ Nutrition Support regular Pertinent Medications reviewed Pertinent Labs 12/31 reviewed Nutritional Hx/Data Height 1.65 m Height (Calculated Centimeters) 165.1 Current Weight (lbs) 74.843 kg Weight (Calculated Kilograms) 74.8 Weight (Calculated Grams) 21599.7 [place] Body Weight 125 Body Mass Index (BMI) 27.4 Weight Status Overweight GI Symptoms GI Symptoms None Last BM 01/04 x 2 Difficult in: None Skin Integrity/Comment: intact Current %PO Good (75-100%) Estimated Nutritional Goals BEE in Kcals: Using Current wt Calories/Kcals/Kg 23-27 Kcals Calculated 4826-2744 Protein: Using Current wt Protein g/k.8 Protein Calculated 60 Fluid: ml 1725-1998ml (1ml/kcal) Nutritional Problem No current Nutrition Prob Problem N/A Malnutrition Alert Is there a minimum of two criteria No selected? Query Text:Check all the applicable criteria. A minimum of two criteria are recommended for diagnosis of either severe or non-severe malnutrition. Malnutrition Related to Morbid Obesity Malnutrition related to morbid obesity No Intervention/Recommendation Comments 1. Continue with regular diet as ordered. 2. Monitor PO intake, wt, labs and skin integrity 3. F/U as low risk in 7 days Expected Outcomes/Goals Expected Outcomes/Goals 1. PO intake to meet at least 75% of nutritional needs. 2. Wt stability, skin to remain intact, labs to approach WNL.
--- NOTE | 2019-06-05 00:27 | Progress Notes ---
DATE: 06/04/2019 SUBJECTIVE: Chart was reviewed and the patient interviewed. Also discussed the patient's condition with the staff and reviewed records and labs. The patient is calm and cooperative. The patient also is interacting more. She is still confused and needs redirections. Otherwise, no side effects of medications. The patient is still waiting for placement. ASSESSMENT: The patient is still considered to be gravely disabled. TREATMENT PLAN: We will continue monitoring her behavior and her condition closely. Also continue adjusting psychotropic medications and work on behavioral modification. JOB# [id number]
[2019-06-05] MEDS: Calcium Carb/Vit D 500 mg/200 U Tab PO SCH (08:14)
[2019-06-05] MEDS: Multivitamin w/ Minerals Tab PO SCH (08:14)
--- NOTE | 2019-06-05 12:22 | Internal Medicine Prog Note ---
Internal Medicine Subjective - Subjective Patient seen and examined:: with staff, chart reviewed Patient is:: awake, verbal, interactive, ambulating, confused Per staff patient has:: no adverse event, no episodes of fall, eating well, tolerating meds Internal Medicine Objective - Results Recent Labs: Laboratory Last Values POC Glucose 188 MG/DL (70 - 105) H 02/02/19 19:27 Triglycerides 162 mg/dL (<150) H 12/31/18 08:04 Cholesterol 234 mg/dL (<200) H 12/31/18 08:04 LDL Cholesterol Direct 155 mg/dL (75-193) 12/31/18 08:04 HDL Cholesterol 62 mg/dL (23-92) 12/31/18 08:04 - Physical Exam Vitals and I&O: Vital Signs Temp 97.2 F 06/05/19 06:11 Pulse 57 06/05/19 06:11 Resp 18 06/05/19 08:00 BP 112/69 06/05/19 06:11 Pulse Ox 98 06/05/19 06:11 Intake & Output 06/04/19 06/05/19 06/05/19 18:59 06:59 18:59 Intake Total 1000 120 Balance 1000 120 Intake: Oral 1000 120 Other: # Voids 4 3 # Bowel Movements 1 0 Active Medications: Current Medications Alendronate Sodium (Fosamax) 70 mg PO QWED [facility] Stop: 07/01/19 07:29 Last Admin: 05/30/19 06:37 Dose: 70 mg Calcium/Vitamin D (Oscal W/Vitamin D) 1 tab PO DAILY [facility] Stop: 07/09/19 08:59 Last Admin: 06/05/19 08:14 Dose: 1 tab Donepezil HCl (Aricept) 10 mg PO HS [facility] Last Admin: 06/04/19 20:53 Dose: 10 mg General: thin, appears younger HEENT: NC/AT, PERRLA, EOMI Neck: Supple, No JVD, No thyromegaly Lungs: CTAB Cardiovascular: RRR, Normal S1, Normal S2, with murmur Abdomen: soft, thin, non-distended, positive bowel sound Extremities: excoriation Internal Medicine Assmt/Plan - Assessment Assessment: alzheimers dementa elevated chol djd osteoporosis - Plan Plan: fall precaution nutritional support cont on calcium supplemetn will cont to follow dw rn add mvi placement ongoing Nutritional Asmnt/Malnutr-PDOC - Dietary Evaluation Malnutrition Findings (Please click <Entered> for more info): Nutritional Asmnt/Malnutrition Start: 01/04/19 09: 50 Text: Status: Complete Freq: Protocol: Document 01/04/19 14:59 LCHENG (Rec: 01/04/19 15:06 LCHENG [id number]) Nutritional Asmnt/Malnutrition Patient General Information Nutritional Screening Moderate Risk Diagnosis psychosis Pertinent Medical Hx/Surgical Hx dementia, DJD, osteoporosis Subjective Information pt seen lying in bed, awake and alert, stated food has beed great. Pt is not a big eater. Encourage to eat balanced meals and pt agreed with it. Per EMR, PO intake 75 -100% Current Diet Order/ Nutrition Support regular Pertinent Medications reviewed Pertinent Labs 12/31 reviewed Nutritional Hx/Data Height 1.65 m Height (Calculated Centimeters) 165.1 Current Weight (lbs) 74.843 kg Weight (Calculated Kilograms) 74.8 Weight (Calculated Grams) 41258.7 [place] Body Weight 125 Body Mass Index (BMI) 27.4 Weight Status Overweight GI Symptoms GI Symptoms None Last BM 01/04 x 2 Difficult in: None Skin Integrity/Comment: intact Current %PO Good (75-100%) Estimated Nutritional Goals BEE in Kcals: Using Current wt Calories/Kcals/Kg 23-27 Kcals Calculated 2736-2934 Protein: Using Current wt Protein g/k.8 Protein Calculated 60 Fluid: ml 1725-1998ml (1ml/kcal) Nutritional Problem No current Nutrition Prob Problem N/A Malnutrition Alert Is there a minimum of two criteria No selected? Query Text:Check all the applicable criteria. A minimum of two criteria are recommended for diagnosis of either severe or non-severe malnutrition. Malnutrition Related to Morbid Obesity Malnutrition related to morbid obesity No Intervention/Recommendation Comments 1. Continue with regular diet as ordered. 2. Monitor PO intake, wt, labs and skin integrity 3. F/U as low risk in 7 days Expected Outcomes/Goals Expected Outcomes/Goals 1. PO intake to meet at least 75% of nutritional needs. 2. Wt stability, skin to remain intact, labs to approach WNL.
--- NOTE | 2019-06-05 21:17 | Progress Notes ---
DATE: 06/05/2019 PSYCHIATRIC PROGRESS NOTE SUBJECTIVE: Chart reviewed and the patient interviewed. Also discussed the patient's condition with the staff and reviewed records and labs. The patient continued to be confused and forgetful, but she is calm and cooperative with treatment. The patient also is still wandering around the unit in a confused state, but easy to redirect her. The patient also started to participate more. She is frustrated also as being in the hospital for a long time, but at the same time waiting for legal issues to move her forward to the placement. At the same time, no behavioral issues. ASSESSMENT: The patient is still considered to be gravely disabled and waiting for placement. TREATMENT PLAN: Continue to monitor behavior and condition closely. Also, continue working on discharge plans and placement issue. JOB# [id number]
[2019-06-06] MEDS: Multivitamin w/ Minerals Tab PO SCH (08:55)
[2019-06-06] MEDS: Calcium Carb/Vit D 500 mg/200 U Tab PO SCH (08:55)
--- NOTE | 2019-06-06 12:16 | Internal Medicine Prog Note ---
Internal Medicine Subjective - Subjective Patient seen and examined:: with staff, chart reviewed Patient is:: awake, verbal, interactive, ambulating, confused Per staff patient has:: no adverse event, no episodes of fall, eating well, tolerating meds Internal Medicine Objective - Results Recent Labs: Laboratory Last Values POC Glucose 188 MG/DL (70 - 105) H 02/02/19 19:27 Triglycerides 162 mg/dL (<150) H 12/31/18 08:04 Cholesterol 234 mg/dL (<200) H 12/31/18 08:04 LDL Cholesterol Direct 155 mg/dL (75-193) 12/31/18 08:04 HDL Cholesterol 62 mg/dL (23-92) 12/31/18 08:04 - Physical Exam Vitals and I&O: Vital Signs Temp 97.9 F 06/06/19 05:47 Pulse 56 06/06/19 05:47 Resp 20 06/06/19 05:47 BP 126/72 06/06/19 05:47 Pulse Ox 95 06/06/19 05:47 Intake & Output 06/05/19 06/06/19 06/06/19 18:59 06:59 18:59 Intake Total 900 120 Balance 900 120 Intake: Oral 900 120 Other: # Voids 3 0 # Bowel Movements 1 0 Active Medications: Current Medications Alendronate Sodium (Fosamax) 70 mg PO QWED [facility] Stop: 07/01/19 07:29 Last Admin: 06/06/19 06:52 Dose: 70 mg Calcium/Vitamin D (Oscal W/Vitamin D) 1 tab PO DAILY [facility] Stop: 07/09/19 08:59 Last Admin: 06/06/19 08:55 Dose: 1 tab Donepezil HCl (Aricept) 10 mg PO HS [facility] Last Admin: 06/05/19 20:32 Dose: 10 mg General: thin, appears younger HEENT: NC/AT, PERRLA, EOMI Neck: Supple, No JVD, No thyromegaly Lungs: CTAB Cardiovascular: RRR, Normal S1, Normal S2, with murmur Abdomen: soft, thin, non-distended, positive bowel sound Extremities: excoriation Internal Medicine Assmt/Plan - Assessment Assessment: alzheimers dementa elevated chol djd osteoporosis - Plan Plan: fall precaution nutritional support cont on calcium supplemetn will cont to follow dw rn add mvi placement ongoing Nutritional Asmnt/Malnutr-PDOC - Dietary Evaluation Malnutrition Findings (Please click <Entered> for more info): Nutritional Asmnt/Malnutrition Start: 01/04/19 09: 50 Text: Status: Complete Freq: Protocol: Document 01/04/19 14:59 LCHENG (Rec: 01/04/19 15:06 LCHENG [email or web address]) Nutritional Asmnt/Malnutrition Patient General Information Nutritional Screening Moderate Risk Diagnosis psychosis Pertinent Medical Hx/Surgical Hx dementia, DJD, osteoporosis Subjective Information pt seen lying in bed, awake and alert, stated food has beed great. Pt is not a big eater. Encourage to eat balanced meals and pt agreed with it. Per EMR, PO intake 75 -100% Current Diet Order/ Nutrition Support regular Pertinent Medications reviewed Pertinent Labs 12/31 reviewed Nutritional Hx/Data Height 1.65 m Height (Calculated Centimeters) 165.1 Current Weight (lbs) 74.843 kg Weight (Calculated Kilograms) 74.8 Weight (Calculated Grams) 32048.7 [place] Body Weight 125 Body Mass Index (BMI) 27.4 Weight Status Overweight GI Symptoms GI Symptoms None Last BM 01/04 x 2 Difficult in: None Skin Integrity/Comment: intact Current %PO Good (75-100%) Estimated Nutritional Goals BEE in Kcals: Using Current wt Calories/Kcals/Kg 23-27 Kcals Calculated 3444-9149 Protein: Using Current wt Protein g/k.8 Protein Calculated 60 Fluid: ml 1725-1998ml (1ml/kcal) Nutritional Problem No current Nutrition Prob Problem N/A Malnutrition Alert Is there a minimum of two criteria No selected? Query Text:Check all the applicable criteria. A minimum of two criteria are recommended for diagnosis of either severe or non-severe malnutrition. Malnutrition Related to Morbid Obesity Malnutrition related to morbid obesity No Intervention/Recommendation Comments 1. Continue with regular diet as ordered. 2. Monitor PO intake, wt, labs and skin integrity 3. F/U as low risk in 7 days Expected Outcomes/Goals Expected Outcomes/Goals 1. PO intake to meet at least 75% of nutritional needs. 2. Wt stability, skin to remain intact, labs to approach WNL.
--- NOTE | 2019-06-06 22:48 | Progress Notes ---
DATE: 06/06/2019 SUBJECTIVE: Chart reviewed and the patient interviewed. Also discussed the patient's condition with the staff and reviewed records and labs. The patient is calm and cooperative and compliant with her treatment. She is still confused and needs redirections, but no behavioral problems. No side effects of medications. ASSESSMENT: The patient is still considered to be gravely disabled and needs redirections. TREATMENT PLAN: Continue to monitor behavior and condition and continue working on discharge plans and placement issue. JOB# [id number]
[2019-06-07] MEDS: Multivitamin w/ Minerals Tab PO SCH (08:32)
[2019-06-07] MEDS: Calcium Carb/Vit D 500 mg/200 U Tab PO SCH (08:32)
--- NOTE | 2019-06-07 12:14 | Internal Medicine Prog Note ---
Internal Medicine Subjective - Subjective Patient seen and examined:: with staff, chart reviewed Patient is:: awake, verbal, interactive, ambulating, confused Per staff patient has:: no adverse event, no episodes of fall, eating well, tolerating meds Internal Medicine Objective - Results Recent Labs: Laboratory Last Values POC Glucose 188 MG/DL (70 - 105) H 02/02/19 19:27 Triglycerides 162 mg/dL (<150) H 12/31/18 08:04 Cholesterol 234 mg/dL (<200) H 12/31/18 08:04 LDL Cholesterol Direct 155 mg/dL (75-193) 12/31/18 08:04 HDL Cholesterol 62 mg/dL (23-92) 12/31/18 08:04 - Physical Exam Vitals and I&O: Vital Signs Temp 97.4 F 06/07/19 06:31 Pulse 79 06/07/19 06:31 Resp 18 06/07/19 06:31 BP 115/72 06/07/19 06:31 Pulse Ox 97 06/07/19 06:31 Intake & Output 06/06/19 06/07/19 06/07/19 18:59 06:59 18:59 Intake Total 900 120 Balance 900 120 Intake: Oral 900 120 Other: # Voids 3 3 # Bowel Movements 1 Active Medications: Current Medications Alendronate Sodium (Fosamax) 70 mg PO QWED [facility] Stop: 07/01/19 07:29 Last Admin: 06/06/19 06:52 Dose: 70 mg Calcium/Vitamin D (Oscal W/Vitamin D) 1 tab PO DAILY [facility] Stop: 07/09/19 08:59 Last Admin: 06/07/19 08:32 Dose: 1 tab Donepezil HCl (Aricept) 10 mg PO HS [facility] Last Admin: 06/06/19 20:44 Dose: 10 mg General: thin, appears younger HEENT: NC/AT, PERRLA, EOMI Neck: Supple, No JVD, No thyromegaly Lungs: CTAB Cardiovascular: RRR, Normal S1, Normal S2, with murmur Abdomen: soft, thin, non-distended, positive bowel sound Extremities: excoriation Internal Medicine Assmt/Plan - Assessment Assessment: alzheimers dementa elevated chol djd osteoporosis - Plan Plan: fall precaution nutritional support cont on calcium supplemetn will cont to follow dw rn add mvi placement ongoing Nutritional Asmnt/Malnutr-PDOC - Dietary Evaluation Malnutrition Findings (Please click <Entered> for more info): Nutritional Asmnt/Malnutrition Start: 01/04/19 09: 50 Text: Status: Complete Freq: Protocol: Document 01/04/19 14:59 LCHENG (Rec: 01/04/19 15:06 LCHENG [id number]) Nutritional Asmnt/Malnutrition Patient General Information Nutritional Screening Moderate Risk Diagnosis psychosis Pertinent Medical Hx/Surgical Hx dementia, DJD, osteoporosis Subjective Information pt seen lying in bed, awake and alert, stated food has beed great. Pt is not a big eater. Encourage to eat balanced meals and pt agreed with it. Per EMR, PO intake 75 -100% Current Diet Order/ Nutrition Support regular Pertinent Medications reviewed Pertinent Labs 12/31 reviewed Nutritional Hx/Data Height 1.65 m Height (Calculated Centimeters) 165.1 Current Weight (lbs) 74.843 kg Weight (Calculated Kilograms) 74.8 Weight (Calculated Grams) 33316.7 [place] Body Weight 125 Body Mass Index (BMI) 27.4 Weight Status Overweight GI Symptoms GI Symptoms None Last BM 01/04 x 2 Difficult in: None Skin Integrity/Comment: intact Current %PO Good (75-100%) Estimated Nutritional Goals BEE in Kcals: Using Current wt Calories/Kcals/Kg 23-27 Kcals Calculated 7367-8550 Protein: Using Current wt Protein g/k.8 Protein Calculated 60 Fluid: ml 1725-1998ml (1ml/kcal) Nutritional Problem No current Nutrition Prob Problem N/A Malnutrition Alert Is there a minimum of two criteria No selected? Query Text:Check all the applicable criteria. A minimum of two criteria are recommended for diagnosis of either severe or non-severe malnutrition. Malnutrition Related to Morbid Obesity Malnutrition related to morbid obesity No Intervention/Recommendation Comments 1. Continue with regular diet as ordered. 2. Monitor PO intake, wt, labs and skin integrity 3. F/U as low risk in 7 days Expected Outcomes/Goals Expected Outcomes/Goals 1. PO intake to meet at least 75% of nutritional needs. 2. Wt stability, skin to remain intact, labs to approach WNL.
--- NOTE | 2019-06-08 01:35 | Progress Notes ---
DATE: 06/07/2019 SUBJECTIVE: Chart reviewed and the patient interviewed. Also discussed the patient's condition with the staff and reviewed records and labs. The patient is still confused and anxious, but her affect is brighter. The patient also is cooperative and compliant with treatment and directions. She is still wandering around the unit in a confused state, but no behavioral problems. ASSESSMENT: The patient is still considered to be gravely disabled. TREATMENT PLAN: Continue monitoring behavior and waiting for placement issue. JOB# [id number]
[2019-06-08] MEDS: Multivitamin w/ Minerals Tab PO SCH (08:47)
[2019-06-08] MEDS: Calcium Carb/Vit D 500 mg/200 U Tab PO SCH (08:47)
--- NOTE | 2019-06-08 14:45 | Internal Medicine Prog Note ---
Internal Medicine Subjective - Subjective Patient seen and examined:: with staff, chart reviewed Patient is:: awake, verbal, interactive, ambulating, confused Per staff patient has:: no adverse event, no episodes of fall, eating well, tolerating meds Internal Medicine Objective - Results Recent Labs: Laboratory Last Values POC Glucose 188 MG/DL (70 - 105) H 02/02/19 19:27 Triglycerides 162 mg/dL (<150) H 12/31/18 08:04 Cholesterol 234 mg/dL (<200) H 12/31/18 08:04 LDL Cholesterol Direct 155 mg/dL (75-193) 12/31/18 08:04 HDL Cholesterol 62 mg/dL (23-92) 12/31/18 08:04 - Physical Exam Vitals and I&O: Vital Signs Temp 97 F 06/08/19 06:34 Pulse 63 06/08/19 06:34 Resp 18 06/08/19 08:00 BP 114/72 06/08/19 06:34 Pulse Ox 98 06/08/19 06:34 Intake & Output 06/07/19 06/08/19 06/08/19 18:59 06:59 18:59 Intake Total 1000 120 Balance 1000 120 Intake: Oral 1000 120 Other: # Voids 4 3 # Bowel Movements 1 Active Medications: Current Medications Alendronate Sodium (Fosamax) 70 mg PO QWED [facility] Stop: 07/01/19 07:29 Last Admin: 06/06/19 06:52 Dose: 70 mg Calcium/Vitamin D (Oscal W/Vitamin D) 1 tab PO DAILY [facility] Stop: 07/09/19 08:59 Last Admin: 06/08/19 08:47 Dose: 1 tab Donepezil HCl (Aricept) 10 mg PO HS [facility] Last Admin: 06/07/19 20:38 Dose: 10 mg General: thin, appears younger HEENT: NC/AT, PERRLA, EOMI Neck: Supple, No JVD, No thyromegaly Lungs: CTAB Cardiovascular: RRR, Normal S1, Normal S2, with murmur Abdomen: soft, thin, non-distended, positive bowel sound Extremities: excoriation Internal Medicine Assmt/Plan - Assessment Assessment: alzheimers dementa elevated chol djd osteoporosis - Plan Plan: fall precaution nutritional support cont on calcium supplemetn will cont to follow dw rn add mvi placement ongoing Nutritional Asmnt/Malnutr-PDOC - Dietary Evaluation Malnutrition Findings (Please click <Entered> for more info): Nutritional Asmnt/Malnutrition Start: 01/04/19 09: 50 Text: Status: Complete Freq: Protocol: Document 01/04/19 14:59 LCHENG (Rec: 01/04/19 15:06 [email or web address] [id number]) Nutritional Asmnt/Malnutrition Patient General Information Nutritional Screening Moderate Risk Diagnosis psychosis Pertinent Medical Hx/Surgical Hx dementia, DJD, osteoporosis Subjective Information pt seen lying in bed, awake and alert, stated food has beed great. Pt is not a big eater. Encourage to eat balanced meals and pt agreed with it. Per EMR, PO intake 75 -100% Current Diet Order/ Nutrition Support regular Pertinent Medications reviewed Pertinent Labs 12/31 reviewed Nutritional Hx/Data Height 1.65 m Height (Calculated Centimeters) 165.1 Current Weight (lbs) 74.843 kg Weight (Calculated Kilograms) 74.8 Weight (Calculated Grams) 99941.7 [place] Body Weight 125 Body Mass Index (BMI) 27.4 Weight Status Overweight GI Symptoms GI Symptoms None Last BM 01/04 x 2 Difficult in: None Skin Integrity/Comment: intact Current %PO Good (75-100%) Estimated Nutritional Goals BEE in Kcals: Using Current wt Calories/Kcals/Kg 23-27 Kcals Calculated 9698-4390 Protein: Using Current wt Protein g/k.8 Protein Calculated 60 Fluid: ml 1725-1998ml (1ml/kcal) Nutritional Problem No current Nutrition Prob Problem N/A Malnutrition Alert Is there a minimum of two criteria No selected? Query Text:Check all the applicable criteria. A minimum of two criteria are recommended for diagnosis of either severe or non-severe malnutrition. Malnutrition Related to Morbid Obesity Malnutrition related to morbid obesity No Intervention/Recommendation Comments 1. Continue with regular diet as ordered. 2. Monitor PO intake, wt, labs and skin integrity 3. F/U as low risk in 7 days Expected Outcomes/Goals Expected Outcomes/Goals 1. PO intake to meet at least 75% of nutritional needs. 2. Wt stability, skin to remain intact, labs to approach WNL.
--- NOTE | 2019-06-08 23:59 | Progress Notes ---
DATE: 06/08/[address] Mason. Case was discussed with staff of the patient, reviewed records. This is a well-known case to me. I have seen her many times covering for Dr. Mason. The patient is confused, demented, unable to make safe plan for self-care. Her affect in general is bright. She is responding well to redirection with episodes of confusion, considered gravely disabled. No side effects with the medication, no sedation, or no nausea. She is on medication for dementia. She is on Aricept 10 mg at bedtime with no side effects with the medication. We will continue the patient in group therapy, milieu therapy, and adjust medications as needed. [facility]# [id number]
[2019-06-09] MEDS: Multivitamin w/ Minerals Tab PO SCH (09:22)
[2019-06-09] MEDS: Calcium Carb/Vit D 500 mg/200 U Tab PO SCH (09:22)
--- NOTE | 2019-06-09 09:43 | Diagnostic Imaging Report ---
Left hip (4 views) HISTORY: Pain, trauma, fall The exam demonstrates changes associated with an old left intertrochanteric fracture and an old fracture of the distal femur.. Orthopedic fixation hardware traverses the left intratrochanteric region and the entire femoral shaft. No definite acute bony amenities are seen. IMPRESSION: 1. Findings consistent with old fractures about the left hip and distal femur with orthopedic fixation as noted above. No definite acute abnormality seen at this time. If symptoms persist, a repeat radiograph in 5-7 days recommended.
--- NOTE | 2019-06-09 13:58 | Internal Medicine Prog Note ---
Internal Medicine Subjective - Subjective Patient seen and examined:: with staff, chart reviewed Patient is:: awake, verbal, interactive, ambulating, confused Per staff patient has:: no adverse event, no episodes of fall, eating well, tolerating meds Internal Medicine Objective - Results Recent Labs: Laboratory Last Values POC Glucose 188 MG/DL (70 - 105) H 02/02/19 19:27 Triglycerides 162 mg/dL (<150) H 12/31/18 08:04 Cholesterol 234 mg/dL (<200) H 12/31/18 08:04 LDL Cholesterol Direct 155 mg/dL (75-193) 12/31/18 08:04 HDL Cholesterol 62 mg/dL (23-92) 12/31/18 08:04 - Physical Exam Vitals and I&O: Vital Signs Temp 98 F 06/09/19 06:48 Pulse 65 06/09/19 06:48 Resp 20 06/09/19 06:48 BP 110/76 06/09/19 06:48 Pulse Ox 97 06/09/19 06:48 Active Medications: Current Medications Acetaminophen (Tylenol) 650 mg PO Q4H PRN PRN Reason: Pain (Mild 1-3) Stop: 08/07/19 15:57 Last Admin: 06/08/19 16:13 Dose: 650 mg Alendronate Sodium (Fosamax) 70 mg PO QWED [facility] Stop: 07/01/19 07:29 Last Admin: 06/06/19 06:52 Dose: 70 mg Calcium/Vitamin D (Oscal W/Vitamin D) 1 tab PO DAILY [facility] Stop: 07/09/19 08:59 Last Admin: 06/09/19 09:22 Dose: 1 tab Donepezil HCl (Aricept) 10 mg PO HS [facility] Last Admin: 06/08/19 20:58 Dose: 10 mg General: demented, thin, appears younger HEENT: NC/AT, PERRLA, EOMI Neck: Supple, No JVD, No thyromegaly Lungs: CTAB Cardiovascular: RRR, Normal S1, Normal S2, with murmur Abdomen: soft, thin, non-distended, positive bowel sound Extremities: excoriation Neurological: no change Internal Medicine Assmt/Plan - Assessment Assessment: alzheimers dementa elevated chol djd osteoporosis ho old left hip fx - Plan Plan: fall precaution nutritional support cont on calcium supplemetn will cont to follow dw rn add mvi placement ongoing Nutritional Asmnt/Malnutr-PDOC - Dietary Evaluation Malnutrition Findings (Please click <Entered> for more info): Nutritional Asmnt/Malnutrition Start: 01/04/19 09: 50 Text: Status: Complete Freq: Protocol: Document 01/04/19 14:59 LCHENG (Rec: 01/04/19 15:06 LCJOSEG [id number]) Nutritional Asmnt/Malnutrition Patient General Information Nutritional Screening Moderate Risk Diagnosis psychosis Pertinent Medical Hx/Surgical Hx dementia, DJD, osteoporosis Subjective Information pt seen lying in bed, awake and alert, stated food has beed great. Pt is not a big eater. Encourage to eat balanced meals and pt agreed with it. Per EMR, PO intake 75 -100% Current Diet Order/ Nutrition Support regular Pertinent Medications reviewed Pertinent Labs 12/31 reviewed Nutritional Hx/Data Height 1.65 m Height (Calculated Centimeters) 165.1 Current Weight (lbs) 74.843 kg Weight (Calculated Kilograms) 74.8 Weight (Calculated Grams) 92103.7 [place] Body Weight 125 Body Mass Index (BMI) 27.4 Weight Status Overweight GI Symptoms GI Symptoms None Last BM 01/04 x 2 Difficult in: None Skin Integrity/Comment: intact Current %PO Good (75-100%) Estimated Nutritional Goals BEE in Kcals: Using Current wt Calories/Kcals/Kg 23-27 Kcals Calculated 4143-3370 Protein: Using Current wt Protein g/k.8 Protein Calculated 60 Fluid: ml 1725-1998ml (1ml/kcal) Nutritional Problem No current Nutrition Prob Problem N/A Malnutrition Alert Is there a minimum of two criteria No selected? Query Text:Check all the applicable criteria. A minimum of two criteria are recommended for diagnosis of either severe or non-severe malnutrition. Malnutrition Related to Morbid Obesity Malnutrition related to morbid obesity No Intervention/Recommendation Comments 1. Continue with regular diet as ordered. 2. Monitor PO intake, wt, labs and skin integrity 3. F/U as low risk in 7 days Expected Outcomes/Goals Expected Outcomes/Goals 1. PO intake to meet at least 75% of nutritional needs. 2. Wt stability, skin to remain intact, labs to approach WNL.
--- NOTE | 2019-06-10 02:03 | Progress Notes ---
DATE: 06/09/[address] Mason. Overnight, no acute events overnight. Today on [id number] evaluation, no SI, HI. No aggressive behavior. MENTAL STATUS EXAMINATION: Stable from last visit. ASSESSMENT AND PLAN: History of dementia with behavior disturbances, pending placement. JOB# [id number]
[2019-06-10] MEDS: Multivitamin w/ Minerals Tab PO SCH (09:26)
[2019-06-10] MEDS: Calcium Carb/Vit D 500 mg/200 U Tab PO SCH (09:27)
--- NOTE | 2019-06-10 12:37 | Internal Medicine Prog Note ---
Internal Medicine Subjective - Subjective Service Date: 06/10/19 Patient is:: awake, verbal, interactive, ambulating, confused Per staff patient has:: no adverse event, no episodes of fall, eating well, tolerating meds Internal Medicine Objective - Results Recent Labs: Laboratory Last Values POC Glucose 188 MG/DL (70 - 105) H 02/02/19 19:27 Triglycerides 162 mg/dL (<150) H 12/31/18 08:04 Cholesterol 234 mg/dL (<200) H 12/31/18 08:04 LDL Cholesterol Direct 155 mg/dL (75-193) 12/31/18 08:04 HDL Cholesterol 62 mg/dL (23-92) 12/31/18 08:04 - Physical Exam Vitals and I&O: Vital Signs Temp 97.4 F 06/10/19 06:12 Pulse 73 06/10/19 06:12 Resp 20 06/10/19 06:12 BP 103/63 06/10/19 06:12 Pulse Ox 96 06/10/19 06:12 Intake & Output 06/09/19 06/10/19 06/10/19 18:59 06:59 18:59 Intake Total 1400 240 Balance 1400 240 Intake: Oral 1400 240 Other: # Voids 3 1 # Bowel Movements 0 Active Medications: Current Medications Acetaminophen (Tylenol) 650 mg PO Q4H PRN PRN Reason: Pain (Mild 1-3) Stop: 08/07/19 15:57 Last Admin: 06/08/19 16:13 Dose: 650 mg Alendronate Sodium (Fosamax) 70 mg PO QWED [facility] Stop: 07/01/19 07:29 Last Admin: 06/06/19 06:52 Dose: 70 mg Calcium/Vitamin D (Oscal W/Vitamin D) 1 tab PO DAILY [facility] Stop: 07/09/19 08:59 Last Admin: 06/10/19 09:27 Dose: 1 tab Donepezil HCl (Aricept) 10 mg PO HS [facility] Last Admin: 06/09/19 20:55 Dose: 10 mg General: demented, thin, appears younger HEENT: NC/AT, PERRLA, EOMI Neck: Supple, No JVD, No thyromegaly Lungs: CTAB Cardiovascular: RRR, Normal S1, Normal S2, with murmur Abdomen: soft, thin, non-distended, positive bowel sound Extremities: excoriation Neurological: no change Internal Medicine Assmt/Plan - Assessment Assessment: alzheimers dementa elevated chol djd osteoporosis - Plan Plan: fall precaution nutritional support cont on calcium supplemetn will cont to follow dw rn add mvi placement ongoing Nutritional Asmnt/Malnutr-PDOC - Dietary Evaluation Malnutrition Findings (Please click <Entered> for more info): Nutritional Asmnt/Malnutrition Start: 01/04/19 09: 50 Text: Status: Complete Freq: Protocol: Document 01/04/19 14:59 LCHENG (Rec: 01/04/19 15:06 LCHENG [id number]) Nutritional Asmnt/Malnutrition Patient General Information Nutritional Screening Moderate Risk Diagnosis psychosis Pertinent Medical Hx/Surgical Hx dementia, DJD, osteoporosis Subjective Information pt seen lying in bed, awake and alert, stated food has beed great. Pt is not a big eater. Encourage to eat balanced meals and pt agreed with it. Per EMR, PO intake 75 -100% Current Diet Order/ Nutrition Support regular Pertinent Medications reviewed Pertinent Labs 12/31 reviewed Nutritional Hx/Data Height 5 ft 5 in Height (Calculated Centimeters) 165.1 Current Weight (lbs) 165 lb Weight (Calculated Kilograms) 74.8 Weight (Calculated Grams) 79935.7 [place] Body Weight 125 Body Mass Index (BMI) 27.4 Weight Status Overweight GI Symptoms GI Symptoms None Last BM 01/04 x 2 Difficult in: None Skin Integrity/Comment: intact Current %PO Good (75-100%) Estimated Nutritional Goals BEE in Kcals: Using Current wt Calories/Kcals/Kg 23-27 Kcals Calculated 1776-0526 Protein: Using Current wt Protein g/k.8 Protein Calculated 60 Fluid: ml 1725-1998ml (1ml/kcal) Nutritional Problem No current Nutrition Prob Problem N/A Malnutrition Alert Is there a minimum of two criteria No selected? Query Text:Check all the applicable criteria. A minimum of two criteria are recommended for diagnosis of either severe or non-severe malnutrition. Malnutrition Related to Morbid Obesity Malnutrition related to morbid obesity No Intervention/Recommendation Comments 1. Continue with regular diet as ordered. 2. Monitor PO intake, wt, labs and skin integrity 3. F/U as low risk in 7 days Expected Outcomes/Goals Expected Outcomes/Goals 1. PO intake to meet at least 75% of nutritional needs. 2. Wt stability, skin to remain intact, labs to approach WNL.
--- NOTE | 2019-06-11 05:02 | Progress Notes ---
DATE: 06/10/[address] Mason SUBJECTIVE: Today on [id number] evaluation, the patient denies any complication. No side effects of medications. She continues to be disorganized with poor memory. MENTAL STATUS EXAMINATION: Stable from yesterday. ASSESSMENT AND PLAN: The patient is a 73-year-old female with severe dementia, awaiting placement. JOB# [id number]
[2019-06-11] MEDS: Calcium Carb/Vit D 500 mg/200 U Tab PO SCH (08:32)
[2019-06-11] MEDS: Multivitamin w/ Minerals Tab PO SCH (08:33)
--- NOTE | 2019-06-11 11:42 | Internal Medicine Prog Note ---
Internal Medicine Subjective - Subjective Patient seen and examined:: with staff, chart reviewed Patient is:: awake, verbal, interactive, ambulating, confused Per staff patient has:: no adverse event, no episodes of fall, eating well, tolerating meds Internal Medicine Objective - Results Recent Labs: Laboratory Last Values POC Glucose 188 MG/DL (70 - 105) H 02/02/19 19:27 Triglycerides 162 mg/dL (<150) H 12/31/18 08:04 Cholesterol 234 mg/dL (<200) H 12/31/18 08:04 LDL Cholesterol Direct 155 mg/dL (75-193) 12/31/18 08:04 HDL Cholesterol 62 mg/dL (23-92) 12/31/18 08:04 - Physical Exam Vitals and I&O: Vital Signs Temp 97.6 F 06/11/19 06:08 Pulse 64 06/11/19 06:08 Resp 19 06/11/19 06:08 BP 123/63 06/11/19 06:08 Pulse Ox 96 06/11/19 06:08 Intake & Output 06/10/19 06/11/19 06/11/19 18:59 06:59 18:59 Intake Total 1000 120 Output Total 0 Balance 1000 120 Intake: Oral 1000 120 Output: Stool 0 Other: # Voids 3 2 # Bowel Movements 1 0 Active Medications: Current Medications Acetaminophen (Tylenol) 650 mg PO Q4H PRN PRN Reason: Pain (Mild 1-3) Stop: 08/07/19 15:57 Last Admin: 06/08/19 16:13 Dose: 650 mg Alendronate Sodium (Fosamax) 70 mg PO QWED [facility] Stop: 07/01/19 07:29 Last Admin: 06/06/19 06:52 Dose: 70 mg Calcium/Vitamin D (Oscal W/Vitamin D) 1 tab PO DAILY [facility] Stop: 07/09/19 08:59 Last Admin: 06/11/19 08:32 Dose: 1 tab Donepezil HCl (Aricept) 10 mg PO HS [facility] Last Admin: 06/10/19 20:23 Dose: 10 mg General: demented, thin, appears younger HEENT: NC/AT, PERRLA, EOMI Neck: Supple, No JVD, No thyromegaly Lungs: CTAB Cardiovascular: RRR, Normal S1, Normal S2, with murmur Abdomen: soft, thin, non-distended, positive bowel sound Extremities: excoriation Neurological: no change Internal Medicine Assmt/Plan - Assessment Assessment: alzheimers dementa elevated chol djd osteoporosis ho old left hip fx - Plan Plan: fall precaution nutritional support cont on calcium supplemetn will cont to follow dw rn add mvi placement ongoing Nutritional Asmnt/Malnutr-PDOC - Dietary Evaluation Malnutrition Findings (Please click <Entered> for more info): Nutritional Asmnt/Malnutrition Start: 01/04/19 09: 50 Text: Status: Complete Freq: Protocol: Document 01/04/19 14:59 LCHENG (Rec: 01/04/19 15:06 LCHENG [email or web address]) Nutritional Asmnt/Malnutrition Patient General Information Nutritional Screening Moderate Risk Diagnosis psychosis Pertinent Medical Hx/Surgical Hx dementia, DJD, osteoporosis Subjective Information pt seen lying in bed, awake and alert, stated food has beed great. Pt is not a big eater. Encourage to eat balanced meals and pt agreed with it. Per EMR, PO intake 75 -100% Current Diet Order/ Nutrition Support regular Pertinent Medications reviewed Pertinent Labs 12/31 reviewed Nutritional Hx/Data Height 1.65 m Height (Calculated Centimeters) 165.1 Current Weight (lbs) 74.843 kg Weight (Calculated Kilograms) 74.8 Weight (Calculated Grams) 75307.7 [place] Body Weight 125 Body Mass Index (BMI) 27.4 Weight Status Overweight GI Symptoms GI Symptoms None Last BM 01/04 x 2 Difficult in: None Skin Integrity/Comment: intact Current %PO Good (75-100%) Estimated Nutritional Goals BEE in Kcals: Using Current wt Calories/Kcals/Kg 23-27 Kcals Calculated 7095-3652 Protein: Using Current wt Protein g/k.8 Protein Calculated 60 Fluid: ml 1725-1998ml (1ml/kcal) Nutritional Problem No current Nutrition Prob Problem N/A Malnutrition Alert Is there a minimum of two criteria No selected? Query Text:Check all the applicable criteria. A minimum of two criteria are recommended for diagnosis of either severe or non-severe malnutrition. Malnutrition Related to Morbid Obesity Malnutrition related to morbid obesity No Intervention/Recommendation Comments 1. Continue with regular diet as ordered. 2. Monitor PO intake, wt, labs and skin integrity 3. F/U as low risk in 7 days Expected Outcomes/Goals Expected Outcomes/Goals 1. PO intake to meet at least 75% of nutritional needs. 2. Wt stability, skin to remain intact, labs to approach WNL.
--- NOTE | 2019-06-11 18:45 | Progress Notes ---
DATE: 06/11/2019 SUBJECTIVE: Chart reviewed and the patient interviewed. Also discussed the patient's condition with the staff and reviewed records and labs. The patient is still pleasantly confused. The patient also seems to be more depressed and she is still wandering around the unit in a confused state, but no agitation or behavioral issues. The patient also is compliant with her medications and cooperative with her treatment. The patient denies any intention to harm herself or others. ASSESSMENT: The patient is still considered to be gravely disabled. TREATMENT PLAN: We will continue current treatment and medications. Also, continue to work on her discharge plans and placement issue. JOB# [id number]
[2019-06-12] MEDS: Multivitamin w/ Minerals Tab PO SCH (08:29)
[2019-06-12] MEDS: Calcium Carb/Vit D 500 mg/200 U Tab PO SCH (08:29)
--- NOTE | 2019-06-12 10:52 | Progress Notes ---
DATE: SUBJECTIVE: Chart reviewed and the patient interviewed. Also discussed the patient's condition with the staff and reviewed records and labs. The patient is still confused and needs lots of redirections. The patient also tends to isolate herself and she seems to be more depressed with her long hospital stay. The patient also has episodes of anxiety, but no behavioral issues. OBJECTIVE: Vital signs are stable and gait is steady. No new labs available for review. ASSESSMENT: The patient is still considered to be gravely disabled. TREATMENT PLAN: We will continue to monitor her behavior and her condition closely. Also, continue to work on her discharge plans and placement issue. [facility]# [id number]
--- NOTE | 2019-06-12 12:17 | Internal Medicine Prog Note ---
Internal Medicine Subjective - Subjective Patient seen and examined:: with staff, chart reviewed Patient is:: awake, verbal, interactive, ambulating, confused Per staff patient has:: no adverse event, no episodes of fall, eating well, tolerating meds Internal Medicine Objective - Results Recent Labs: Laboratory Last Values POC Glucose 188 MG/DL (70 - 105) H 02/02/19 19:27 Triglycerides 162 mg/dL (<150) H 12/31/18 08:04 Cholesterol 234 mg/dL (<200) H 12/31/18 08:04 LDL Cholesterol Direct 155 mg/dL (75-193) 12/31/18 08:04 HDL Cholesterol 62 mg/dL (23-92) 12/31/18 08:04 - Physical Exam Vitals and I&O: Vital Signs Temp 99.2 F 06/12/19 05:38 Pulse 68 06/12/19 05:38 Resp 20 06/12/19 05:38 BP 120/67 06/12/19 05:38 Pulse Ox 96 06/12/19 05:38 Intake & Output 06/11/19 06/12/19 06/12/19 18:59 06:59 18:59 Intake Total 900 300 Balance 900 300 Intake: Oral 900 300 Other: # Voids 3 0 # Bowel Movements 1 0 Active Medications: Current Medications Acetaminophen (Tylenol) 650 mg PO Q4H PRN PRN Reason: Pain (Mild 1-3) Stop: 08/07/19 15:57 Last Admin: 06/08/19 16:13 Dose: 650 mg Alendronate Sodium (Fosamax) 70 mg PO QWED [facility] Stop: 07/01/19 07:29 Last Admin: 06/06/19 06:52 Dose: 70 mg Calcium/Vitamin D (Oscal W/Vitamin D) 1 tab PO DAILY [facility] Stop: 07/09/19 08:59 Last Admin: 06/12/19 08:29 Dose: 1 tab Donepezil HCl (Aricept) 10 mg PO HS [facility] Last Admin: 06/11/19 20:26 Dose: 10 mg General: demented, thin, appears younger HEENT: NC/AT, PERRLA, EOMI Neck: Supple, No JVD, No thyromegaly Lungs: CTAB Cardiovascular: RRR, Normal S1, Normal S2, with murmur Abdomen: soft, thin, non-distended, positive bowel sound Extremities: excoriation Neurological: no change Internal Medicine Assmt/Plan - Assessment Assessment: alzheimers dementa elevated chol djd osteoporosis ho old left hip fx - Plan Plan: fall precaution nutritional support cont on calcium supplemetn will cont to follow dw rn add mvi placement ongoing Nutritional Asmnt/Malnutr-PDOC - Dietary Evaluation Malnutrition Findings (Please click <Entered> for more info): Nutritional Asmnt/Malnutrition Start: 01/04/19 09: 50 Text: Status: Complete Freq: Protocol: Document 01/04/19 14:59 LCHENG (Rec: 01/04/19 15:06 LCHENG [email or web address]) Nutritional Asmnt/Malnutrition Patient General Information Nutritional Screening Moderate Risk Diagnosis psychosis Pertinent Medical Hx/Surgical Hx dementia, DJD, osteoporosis Subjective Information pt seen lying in bed, awake and alert, stated food has beed great. Pt is not a big eater. Encourage to eat balanced meals and pt agreed with it. Per EMR, PO intake 75 -100% Current Diet Order/ Nutrition Support regular Pertinent Medications reviewed Pertinent Labs 12/31 reviewed Nutritional Hx/Data Height 1.65 m Height (Calculated Centimeters) 165.1 Current Weight (lbs) 74.843 kg Weight (Calculated Kilograms) 74.8 Weight (Calculated Grams) 02752.7 [place] Body Weight 125 Body Mass Index (BMI) 27.4 Weight Status Overweight GI Symptoms GI Symptoms None Last BM 01/04 x 2 Difficult in: None Skin Integrity/Comment: intact Current %PO Good (75-100%) Estimated Nutritional Goals BEE in Kcals: Using Current wt Calories/Kcals/Kg 23-27 Kcals Calculated 0789-5695 Protein: Using Current wt Protein g/k.8 Protein Calculated 60 Fluid: ml 1725-1998ml (1ml/kcal) Nutritional Problem No current Nutrition Prob Problem N/A Malnutrition Alert Is there a minimum of two criteria No selected? Query Text:Check all the applicable criteria. A minimum of two criteria are recommended for diagnosis of either severe or non-severe malnutrition. Malnutrition Related to Morbid Obesity Malnutrition related to morbid obesity No Intervention/Recommendation Comments 1. Continue with regular diet as ordered. 2. Monitor PO intake, wt, labs and skin integrity 3. F/U as low risk in 7 days Expected Outcomes/Goals Expected Outcomes/Goals 1. PO intake to meet at least 75% of nutritional needs. 2. Wt stability, skin to remain intact, labs to approach WNL.
[2019-06-13] MEDS: Calcium Carb/Vit D 500 mg/200 U Tab PO SCH (09:16)
[2019-06-13] MEDS: Multivitamin w/ Minerals Tab PO SCH (09:17)
--- NOTE | 2019-06-13 12:31 | Internal Medicine Prog Note ---
Internal Medicine Subjective - Subjective Patient seen and examined:: with staff, chart reviewed Patient is:: awake, verbal, interactive, ambulating, confused Per staff patient has:: no adverse event, no episodes of fall, eating well, tolerating meds Internal Medicine Objective - Results Recent Labs: Laboratory Last Values POC Glucose 188 MG/DL (70 - 105) H 02/02/19 19:27 Triglycerides 162 mg/dL (<150) H 12/31/18 08:04 Cholesterol 234 mg/dL (<200) H 12/31/18 08:04 LDL Cholesterol Direct 155 mg/dL (75-193) 12/31/18 08:04 HDL Cholesterol 62 mg/dL (23-92) 12/31/18 08:04 - Physical Exam Vitals and I&O: Vital Signs Temp 97.6 F 06/13/19 06:44 Pulse 70 06/13/19 06:44 Resp 19 06/13/19 06:44 BP 105/73 06/13/19 06:44 Pulse Ox 97 06/13/19 06:44 Intake & Output 06/12/19 06/13/19 06/13/19 18:59 06:59 18:59 Intake Total 1080 120 Balance 1080 120 Intake: Oral 1080 120 Other: # Voids 3 3 # Bowel Movements 1 Active Medications: Current Medications Acetaminophen (Tylenol) 650 mg PO Q4H PRN PRN Reason: Pain (Mild 1-3) Stop: 08/07/19 15:57 Last Admin: 06/08/19 16:13 Dose: 650 mg Alendronate Sodium (Fosamax) 70 mg PO QWED [facility] Stop: 07/01/19 07:29 Last Admin: 06/13/19 09:17 Dose: 70 mg Calcium/Vitamin D (Oscal W/Vitamin D) 1 tab PO DAILY [facility] Stop: 07/09/19 08:59 Last Admin: 06/13/19 09:16 Dose: 1 tab Donepezil HCl (Aricept) 10 mg PO HS [facility] Last Admin: 06/12/19 21:04 Dose: 10 mg General: demented, thin, appears younger HEENT: NC/AT, PERRLA, EOMI Neck: Supple, No JVD, No thyromegaly Lungs: CTAB Cardiovascular: RRR, Normal S1, Normal S2, with murmur Abdomen: soft, thin, non-distended, positive bowel sound Extremities: excoriation Neurological: no change Internal Medicine Assmt/Plan - Assessment Assessment: alzheimers dementa elevated chol djd osteoporosis ho old left hip fx - Plan Plan: fall precaution nutritional support cont on calcium supplemetn will cont to follow dw rn add mvi placement ongoing Nutritional Asmnt/Malnutr-PDOC - Dietary Evaluation Malnutrition Findings (Please click <Entered> for more info): Nutritional Asmnt/Malnutrition Start: 01/04/19 09: 50 Text: Status: Complete Freq: Protocol: Document 01/04/19 14:59 LCHENG (Rec: 01/04/19 15:06 LCHENG [email or web address]) Nutritional Asmnt/Malnutrition Patient General Information Nutritional Screening Moderate Risk Diagnosis psychosis Pertinent Medical Hx/Surgical Hx dementia, DJD, osteoporosis Subjective Information pt seen lying in bed, awake and alert, stated food has beed great. Pt is not a big eater. Encourage to eat balanced meals and pt agreed with it. Per EMR, PO intake 75 -100% Current Diet Order/ Nutrition Support regular Pertinent Medications reviewed Pertinent Labs 12/31 reviewed Nutritional Hx/Data Height 1.65 m Height (Calculated Centimeters) 165.1 Current Weight (lbs) 74.843 kg Weight (Calculated Kilograms) 74.8 Weight (Calculated Grams) 07938.7 [place] Body Weight 125 Body Mass Index (BMI) 27.4 Weight Status Overweight GI Symptoms GI Symptoms None Last BM 01/04 x 2 Difficult in: None Skin Integrity/Comment: intact Current %PO Good (75-100%) Estimated Nutritional Goals BEE in Kcals: Using Current wt Calories/Kcals/Kg 23-27 Kcals Calculated 7705-1290 Protein: Using Current wt Protein g/k.8 Protein Calculated 60 Fluid: ml 1725-1998ml (1ml/kcal) Nutritional Problem No current Nutrition Prob Problem N/A Malnutrition Alert Is there a minimum of two criteria No selected? Query Text:Check all the applicable criteria. A minimum of two criteria are recommended for diagnosis of either severe or non-severe malnutrition. Malnutrition Related to Morbid Obesity Malnutrition related to morbid obesity No Intervention/Recommendation Comments 1. Continue with regular diet as ordered. 2. Monitor PO intake, wt, labs and skin integrity 3. F/U as low risk in 7 days Expected Outcomes/Goals Expected Outcomes/Goals 1. PO intake to meet at least 75% of nutritional needs. 2. Wt stability, skin to remain intact, labs to approach WNL.
--- NOTE | 2019-06-13 22:14 | Progress Notes ---
DATE: 06/13/2019 SUBJECTIVE: Chart reviewed and the patient interviewed. Also discussed the patient's condition with the staff and reviewed records and labs. The patient had no major behavioral issues and the patient is easy to follow directions. The patient also is interacting more. She also is still easy to redirect her. She denies any hallucinations or delusions, but confused and wandering around in a confused state. ASSESSMENT: The patient is still confused and considered to be gravely disabled. TREATMENT PLAN: Continue current treatment and medications and also continue working on placement issue and on discharge plans. JOB# [id number]
[2019-06-14] MEDS: Calcium Carb/Vit D 500 mg/200 U Tab PO SCH (08:08)
[2019-06-14] MEDS: Multivitamin w/ Minerals Tab PO SCH (08:08)
--- NOTE | 2019-06-14 15:00 | Internal Medicine Prog Note ---
Internal Medicine Subjective - Subjective Patient seen and examined:: with staff, chart reviewed Patient is:: awake, verbal, interactive, ambulating, confused Per staff patient has:: no adverse event, no episodes of fall, eating well, tolerating meds Internal Medicine Objective - Results Recent Labs: Laboratory Last Values POC Glucose 188 MG/DL (70 - 105) H 02/02/19 19:27 Triglycerides 162 mg/dL (<150) H 12/31/18 08:04 Cholesterol 234 mg/dL (<200) H 12/31/18 08:04 LDL Cholesterol Direct 155 mg/dL (75-193) 12/31/18 08:04 HDL Cholesterol 62 mg/dL (23-92) 12/31/18 08:04 - Physical Exam Vitals and I&O: Vital Signs Temp 97.8 F 06/14/19 14:00 Pulse 80 06/14/19 14:00 Resp 20 06/14/19 14:00 BP 90/48 06/14/19 14:00 Pulse Ox 97 06/14/19 14:00 Intake & Output 06/13/19 06/14/19 06/14/19 18:59 06:59 18:59 Intake Total 1080 120 Balance 1080 120 Intake: Oral 1080 120 Other: # Voids 3 2 # Bowel Movements 1 Active Medications: Current Medications Acetaminophen (Tylenol) 650 mg PO Q4H PRN PRN Reason: Pain (Mild 1-3) Stop: 08/07/19 15:57 Last Admin: 06/08/19 16:13 Dose: 650 mg Alendronate Sodium (Fosamax) 70 mg PO QWED [facility] Stop: 07/01/19 07:29 Last Admin: 06/13/19 09:17 Dose: 70 mg Calcium/Vitamin D (Oscal W/Vitamin D) 1 tab PO DAILY [facility] Stop: 07/09/19 08:59 Last Admin: 06/14/19 08:08 Dose: 1 tab Donepezil HCl (Aricept) 10 mg PO HS [facility] Last Admin: 06/13/19 20:37 Dose: 10 mg General: demented, thin, appears younger HEENT: NC/AT, PERRLA, EOMI Neck: Supple, No JVD, No thyromegaly Lungs: CTAB Cardiovascular: RRR, Normal S1, Normal S2, with murmur Abdomen: soft, thin, non-distended, positive bowel sound Extremities: excoriation Neurological: no change Internal Medicine Assmt/Plan - Assessment Assessment: alzheimers dementa elevated chol djd osteoporosis ho old left hip fx - Plan Plan: fall precaution nutritional support cont on calcium supplemetn will cont to follow dw rn add mvi placement ongoing Nutritional Asmnt/Malnutr-PDOC - Dietary Evaluation Malnutrition Findings (Please click <Entered> for more info): Nutritional Asmnt/Malnutrition Start: 01/04/19 09: 50 Text: Status: Complete Freq: Protocol: Document 01/04/19 14:59 LCHENG (Rec: 01/04/19 15:06 LCHENG [email or web address]) Nutritional Asmnt/Malnutrition Patient General Information Nutritional Screening Moderate Risk Diagnosis psychosis Pertinent Medical Hx/Surgical Hx dementia, DJD, osteoporosis Subjective Information pt seen lying in bed, awake and alert, stated food has beed great. Pt is not a big eater. Encourage to eat balanced meals and pt agreed with it. Per EMR, PO intake 75 -100% Current Diet Order/ Nutrition Support regular Pertinent Medications reviewed Pertinent Labs 12/31 reviewed Nutritional Hx/Data Height 1.65 m Height (Calculated Centimeters) 165.1 Current Weight (lbs) 74.843 kg Weight (Calculated Kilograms) 74.8 Weight (Calculated Grams) 05467.7 [place] Body Weight 125 Body Mass Index (BMI) 27.4 Weight Status Overweight GI Symptoms GI Symptoms None Last BM 01/04 x 2 Difficult in: None Skin Integrity/Comment: intact Current %PO Good (75-100%) Estimated Nutritional Goals BEE in Kcals: Using Current wt Calories/Kcals/Kg 23-27 Kcals Calculated 8241-1655 Protein: Using Current wt Protein g/k.8 Protein Calculated 60 Fluid: ml 1725-1998ml (1ml/kcal) Nutritional Problem No current Nutrition Prob Problem N/A Malnutrition Alert Is there a minimum of two criteria No selected? Query Text:Check all the applicable criteria. A minimum of two criteria are recommended for diagnosis of either severe or non-severe malnutrition. Malnutrition Related to Morbid Obesity Malnutrition related to morbid obesity No Intervention/Recommendation Comments 1. Continue with regular diet as ordered. 2. Monitor PO intake, wt, labs and skin integrity 3. F/U as low risk in 7 days Expected Outcomes/Goals Expected Outcomes/Goals 1. PO intake to meet at least 75% of nutritional needs. 2. Wt stability, skin to remain intact, labs to approach WNL.
--- NOTE | 2019-06-14 21:48 | Progress Notes ---
DATE: 06/14/2019 SUBJECTIVE: Chart reviewed and the patient interviewed. Also discussed the patient's condition with the staff and reviewed records and labs. The patient is still confused and she is still wandering around the unit. She is also still in a depressed mood, but no behavioral problems. She still needs reassurance and also needs directions because of her confusion. Otherwise, the patient is compliant with taking her medications with no side effects of medications. ASSESSMENT: The patient is still confused and considered to be gravely disabled and waiting for placement. TREATMENT PLAN: Continue current treatment and continue working on discharge plans and placement issue. JOB# [id number]
[2019-06-15] MEDS: Multivitamin w/ Minerals Tab PO SCH (08:33)
[2019-06-15] MEDS: Calcium Carb/Vit D 500 mg/200 U Tab PO SCH (08:33)
--- NOTE | 2019-06-15 12:45 | Internal Medicine Prog Note ---
Internal Medicine Subjective - Subjective Patient seen and examined:: with staff, chart reviewed Patient is:: awake, verbal, interactive, ambulating, confused Per staff patient has:: no adverse event, no episodes of fall, eating well, tolerating meds Internal Medicine Objective - Results Recent Labs: Laboratory Last Values POC Glucose 188 MG/DL (70 - 105) H 02/02/19 19:27 Triglycerides 162 mg/dL (<150) H 12/31/18 08:04 Cholesterol 234 mg/dL (<200) H 12/31/18 08:04 LDL Cholesterol Direct 155 mg/dL (75-193) 12/31/18 08:04 HDL Cholesterol 62 mg/dL (23-92) 12/31/18 08:04 - Physical Exam Vitals and I&O: Vital Signs Temp 97.4 F 06/15/19 05:28 Pulse 77 06/15/19 05:28 Resp 18 06/15/19 05:28 BP 112/62 06/15/19 05:28 Pulse Ox 100 06/15/19 05:28 Intake & Output 06/14/19 06/15/19 06/15/19 18:59 06:59 18:59 Intake Total 1500 600 Balance 1500 600 Intake: Oral 1500 600 Other: # Voids 3 1 # Bowel Movements 0 Active Medications: Current Medications Acetaminophen (Tylenol) 650 mg PO Q4H PRN PRN Reason: Pain (Mild 1-3) Stop: 08/07/19 15:57 Last Admin: 06/08/19 16:13 Dose: 650 mg Alendronate Sodium (Fosamax) 70 mg PO QWED [facility] Stop: 07/01/19 07:29 Last Admin: 06/13/19 09:17 Dose: 70 mg Calcium/Vitamin D (Oscal W/Vitamin D) 1 tab PO DAILY [facility] Stop: 07/09/19 08:59 Last Admin: 06/15/19 08:33 Dose: 1 tab Donepezil HCl (Aricept) 10 mg PO HS [facility] Last Admin: 06/14/19 20:46 Dose: 10 mg General: demented, thin, appears younger HEENT: NC/AT, PERRLA, EOMI Neck: Supple, No JVD, No thyromegaly Lungs: CTAB Cardiovascular: RRR, Normal S1, Normal S2, with murmur Abdomen: soft, thin, non-distended, positive bowel sound Extremities: excoriation Neurological: no change Internal Medicine Assmt/Plan - Assessment Assessment: alzheimers dementa elevated chol djd osteoporosis ho old left hip fx - Plan Plan: fall precaution nutritional support cont on calcium supplemetn will cont to follow dw rn add mvi placement ongoing Nutritional Asmnt/Malnutr-PDOC - Dietary Evaluation Malnutrition Findings (Please click <Entered> for more info): Nutritional Asmnt/Malnutrition Start: 01/04/19 09: 50 Text: Status: Complete Freq: Protocol: Document 01/04/19 14:59 LCHENG (Rec: 01/04/19 15:06 LCHENG [email or web address]) Nutritional Asmnt/Malnutrition Patient General Information Nutritional Screening Moderate Risk Diagnosis psychosis Pertinent Medical Hx/Surgical Hx dementia, DJD, osteoporosis Subjective Information pt seen lying in bed, awake and alert, stated food has beed great. Pt is not a big eater. Encourage to eat balanced meals and pt agreed with it. Per EMR, PO intake 75 -100% Current Diet Order/ Nutrition Support regular Pertinent Medications reviewed Pertinent Labs 12/31 reviewed Nutritional Hx/Data Height 1.65 m Height (Calculated Centimeters) 165.1 Current Weight (lbs) 74.843 kg Weight (Calculated Kilograms) 74.8 Weight (Calculated Grams) 82583.7 [place] Body Weight 125 Body Mass Index (BMI) 27.4 Weight Status Overweight GI Symptoms GI Symptoms None Last BM 01/04 x 2 Difficult in: None Skin Integrity/Comment: intact Current %PO Good (75-100%) Estimated Nutritional Goals BEE in Kcals: Using Current wt Calories/Kcals/Kg 23-27 Kcals Calculated 3763-5246 Protein: Using Current wt Protein g/k.8 Protein Calculated 60 Fluid: ml 1725-1998ml (1ml/kcal) Nutritional Problem No current Nutrition Prob Problem N/A Malnutrition Alert Is there a minimum of two criteria No selected? Query Text:Check all the applicable criteria. A minimum of two criteria are recommended for diagnosis of either severe or non-severe malnutrition. Malnutrition Related to Morbid Obesity Malnutrition related to morbid obesity No Intervention/Recommendation Comments 1. Continue with regular diet as ordered. 2. Monitor PO intake, wt, labs and skin integrity 3. F/U as low risk in 7 days Expected Outcomes/Goals Expected Outcomes/Goals 1. PO intake to meet at least 75% of nutritional needs. 2. Wt stability, skin to remain intact, labs to approach WNL.
--- NOTE | 2019-06-16 01:59 | Progress Notes ---
DATE: PSYCHIATRIC PROGRESS NOTE SUBJECTIVE: Chart reviewed and the patient interviewed. Also discussed the patient's condition with the staff and reviewed records and labs. The patient is still anxious and still needs redirections. The patient also is interacting more with peers and with others. The patient also is cooperative with the staff. She is still confused, but no behavioral problems. ASSESSMENT: The patient is still gravely disabled and need placement. TREATMENT PLAN: Continue to monitor behavior and condition closely and continue working on placement issue and on discharge plans. [facility]# [id number]
[2019-06-16] MEDS: Calcium Carb/Vit D 500 mg/200 U Tab PO SCH (08:23)
[2019-06-16] MEDS: Multivitamin w/ Minerals Tab PO SCH (08:23)
--- NOTE | 2019-06-16 10:19 | Internal Medicine Prog Note ---
Internal Medicine Subjective - Subjective Patient seen and examined:: with staff, chart reviewed Patient is:: awake, verbal, interactive, ambulating, confused Per staff patient has:: no adverse event, no episodes of fall, eating well, tolerating meds Internal Medicine Objective - Results Recent Labs: Laboratory Last Values POC Glucose 188 MG/DL (70 - 105) H 02/02/19 19:27 Triglycerides 162 mg/dL (<150) H 12/31/18 08:04 Cholesterol 234 mg/dL (<200) H 12/31/18 08:04 LDL Cholesterol Direct 155 mg/dL (75-193) 12/31/18 08:04 HDL Cholesterol 62 mg/dL (23-92) 12/31/18 08:04 - Physical Exam Vitals and I&O: Vital Signs Temp 98.2 F 06/16/19 05:16 Pulse 80 06/16/19 05:16 Resp 18 06/16/19 05:16 BP 117/67 06/16/19 05:16 Pulse Ox 98 06/16/19 05:16 Intake & Output 06/15/19 06/16/19 06/16/19 18:59 06:59 18:59 Intake Total 1000 240 Output Total 2 Balance 1000 238 Intake: Oral 1000 240 Output: Stool 2 Urine/Stool Mix 0 Other: # Voids 4 2 # Bowel Movements 1 0 Active Medications: Current Medications Acetaminophen (Tylenol) 650 mg PO Q4H PRN PRN Reason: Pain (Mild 1-3) Stop: 08/07/19 15:57 Last Admin: 06/08/19 16:13 Dose: 650 mg Alendronate Sodium (Fosamax) 70 mg PO QWED [facility] Stop: 07/01/19 07:29 Last Admin: 06/13/19 09:17 Dose: 70 mg Calcium/Vitamin D (Oscal W/Vitamin D) 1 tab PO DAILY [facility] Stop: 07/09/19 08:59 Last Admin: 06/16/19 08:23 Dose: 1 tab Donepezil HCl (Aricept) 10 mg PO HS [facility] Last Admin: 06/15/19 20:39 Dose: 10 mg General: demented, thin, appears younger HEENT: NC/AT, PERRLA, EOMI Neck: Supple, No JVD, No thyromegaly Lungs: CTAB Cardiovascular: RRR, Normal S1, Normal S2, with murmur Abdomen: soft, thin, non-distended, positive bowel sound Extremities: excoriation Neurological: no change Internal Medicine Assmt/Plan - Assessment Assessment: alzheimers dementa elevated chol djd osteoporosis ho old left hip fx - Plan Plan: fall precaution nutritional support cont on calcium supplemetn will cont to follow dw rn add mvi placement ongoing Nutritional Asmnt/Malnutr-PDOC - Dietary Evaluation Malnutrition Findings (Please click <Entered> for more info): Nutritional Asmnt/Malnutrition Start: 01/04/19 09: 50 Text: Status: Complete Freq: Protocol: Document 01/04/19 14:59 LCHENG (Rec: 01/04/19 15:06 LCHENG [email or web address]) Nutritional Asmnt/Malnutrition Patient General Information Nutritional Screening Moderate Risk Diagnosis psychosis Pertinent Medical Hx/Surgical Hx dementia, DJD, osteoporosis Subjective Information pt seen lying in bed, awake and alert, stated food has beed great. Pt is not a big eater. Encourage to eat balanced meals and pt agreed with it. Per EMR, PO intake 75 -100% Current Diet Order/ Nutrition Support regular Pertinent Medications reviewed Pertinent Labs 12/31 reviewed Nutritional Hx/Data Height 1.65 m Height (Calculated Centimeters) 165.1 Current Weight (lbs) 74.843 kg Weight (Calculated Kilograms) 74.8 Weight (Calculated Grams) 15912.7 [place] Body Weight 125 Body Mass Index (BMI) 27.4 Weight Status Overweight GI Symptoms GI Symptoms None Last BM 01/04 x 2 Difficult in: None Skin Integrity/Comment: intact Current %PO Good (75-100%) Estimated Nutritional Goals BEE in Kcals: Using Current wt Calories/Kcals/Kg 23-27 Kcals Calculated 0243-2483 Protein: Using Current wt Protein g/k.8 Protein Calculated 60 Fluid: ml 1725-1998ml (1ml/kcal) Nutritional Problem No current Nutrition Prob Problem N/A Malnutrition Alert Is there a minimum of two criteria No selected? Query Text:Check all the applicable criteria. A minimum of two criteria are recommended for diagnosis of either severe or non-severe malnutrition. Malnutrition Related to Morbid Obesity Malnutrition related to morbid obesity No Intervention/Recommendation Comments 1. Continue with regular diet as ordered. 2. Monitor PO intake, wt, labs and skin integrity 3. F/U as low risk in 7 days Expected Outcomes/Goals Expected Outcomes/Goals 1. PO intake to meet at least 75% of nutritional needs. 2. Wt stability, skin to remain intact, labs to approach WNL.
--- NOTE | 2019-06-16 23:02 | Progress Notes ---
DATE: 06/16/2019 SUBJECTIVE: Chart reviewed and the patient interviewed. Also discussed the patient's condition with the staff and reviewed records and labs. The patient's affect is brighter. The patient is calm and cooperative, but confused. She needs lots of redirections. She denies any thoughts of suicide or homicide. ASSESSMENT: The patient is still confused and considered to be gravely disabled. TREATMENT PLAN: We will continue monitoring her behavior and condition and we will continue to follow up. [facility]# [id number]
[2019-06-17] MEDS: Calcium Carb/Vit D 500 mg/200 U Tab PO SCH (08:23)
[2019-06-17] MEDS: Multivitamin w/ Minerals Tab PO SCH (08:23)
--- NOTE | 2019-06-17 15:08 | Internal Medicine Prog Note ---
Internal Medicine Subjective - Subjective Patient seen and examined:: with staff, chart reviewed Patient is:: awake, verbal, interactive, ambulating, confused Per staff patient has:: no adverse event, no episodes of fall, eating well, tolerating meds Internal Medicine Objective - Results Recent Labs: Laboratory Last Values POC Glucose 188 MG/DL (70 - 105) H 02/02/19 19:27 Triglycerides 162 mg/dL (<150) H 12/31/18 08:04 Cholesterol 234 mg/dL (<200) H 12/31/18 08:04 LDL Cholesterol Direct 155 mg/dL (75-193) 12/31/18 08:04 HDL Cholesterol 62 mg/dL (23-92) 12/31/18 08:04 - Physical Exam Vitals and I&O: Vital Signs Temp 98.3 F 06/17/19 14:00 Pulse 72 06/17/19 14:00 Resp 18 06/17/19 14:00 BP 93/57 06/17/19 14:00 Pulse Ox 97 06/17/19 14:00 Intake & Output 06/16/19 06/17/19 06/17/19 18:59 06:59 18:59 Intake Total 1500 120 Balance 1500 120 Intake: Oral 1500 120 Other: # Voids 3 1 # Bowel Movements 0 0 1 Active Medications: Current Medications Acetaminophen (Tylenol) 650 mg PO Q4H PRN PRN Reason: Pain (Mild 1-3) Stop: 08/07/19 15:57 Last Admin: 06/08/19 16:13 Dose: 650 mg Alendronate Sodium (Fosamax) 70 mg PO QWED [facility] Stop: 07/01/19 07:29 Last Admin: 06/13/19 09:17 Dose: 70 mg Calcium/Vitamin D (Oscal W/Vitamin D) 1 tab PO DAILY [facility] Stop: 07/09/19 08:59 Last Admin: 06/17/19 08:23 Dose: 1 tab Donepezil HCl (Aricept) 10 mg PO HS [facility] Last Admin: 06/16/19 20:49 Dose: 10 mg General: demented, thin, appears younger HEENT: NC/AT, PERRLA, EOMI Neck: Supple, No JVD, No thyromegaly Lungs: CTAB Cardiovascular: RRR, Normal S1, Normal S2, with murmur Abdomen: soft, thin, non-distended, positive bowel sound Extremities: excoriation Neurological: no change Internal Medicine Assmt/Plan - Assessment Assessment: alzheimers dementa elevated chol djd osteoporosis ho old left hip fx - Plan Plan: fall precaution nutritional support cont on calcium supplemetn will cont to follow dw rn add mvi placement ongoing Nutritional Asmnt/Malnutr-PDOC - Dietary Evaluation Malnutrition Findings (Please click <Entered> for more info): Nutritional Asmnt/Malnutrition Start: 01/04/19 09: 50 Text: Status: Complete Freq: Protocol: Document 01/04/19 14:59 LCHENG (Rec: 01/04/19 15:06 LCHENG [email or web address]) Nutritional Asmnt/Malnutrition Patient General Information Nutritional Screening Moderate Risk Diagnosis psychosis Pertinent Medical Hx/Surgical Hx dementia, DJD, osteoporosis Subjective Information pt seen lying in bed, awake and alert, stated food has beed great. Pt is not a big eater. Encourage to eat balanced meals and pt agreed with it. Per EMR, PO intake 75 -100% Current Diet Order/ Nutrition Support regular Pertinent Medications reviewed Pertinent Labs 12/31 reviewed Nutritional Hx/Data Height 1.65 m Height (Calculated Centimeters) 165.1 Current Weight (lbs) 74.843 kg Weight (Calculated Kilograms) 74.8 Weight (Calculated Grams) 09601.7 [place] Body Weight 125 Body Mass Index (BMI) 27.4 Weight Status Overweight GI Symptoms GI Symptoms None Last BM 01/04 x 2 Difficult in: None Skin Integrity/Comment: intact Current %PO Good (75-100%) Estimated Nutritional Goals BEE in Kcals: Using Current wt Calories/Kcals/Kg 23-27 Kcals Calculated 1756-2083 Protein: Using Current wt Protein g/k.8 Protein Calculated 60 Fluid: ml 1725-1998ml (1ml/kcal) Nutritional Problem No current Nutrition Prob Problem N/A Malnutrition Alert Is there a minimum of two criteria No selected? Query Text:Check all the applicable criteria. A minimum of two criteria are recommended for diagnosis of either severe or non-severe malnutrition. Malnutrition Related to Morbid Obesity Malnutrition related to morbid obesity No Intervention/Recommendation Comments 1. Continue with regular diet as ordered. 2. Monitor PO intake, wt, labs and skin integrity 3. F/U as low risk in 7 days Expected Outcomes/Goals Expected Outcomes/Goals 1. PO intake to meet at least 75% of nutritional needs. 2. Wt stability, skin to remain intact, labs to approach WNL.
--- NOTE | 2019-06-17 20:01 | Progress Notes ---
DATE: 06/17/2019 SUBJECTIVE: Chart reviewed and the patient interviewed. Also discussed the patient's condition with the staff and reviewed records and labs. The patient is still pleasantly confused and she still wandering around the facility and in the unit in a confused state. The patient also is still asking to go home, but at the same time, unable to provide any safe plan for self-care. The patient also is still anxious with mood swings. Otherwise, no behavioral problems. ASSESSMENT: The patient is still depressed and confused and considered to be gravely disabled. TREATMENT PLAN: Continue to monitor behavior and condition closely and also continue to work on discharge plans and placement issue. JOB# [id number]
--- NOTE | 2019-06-18 07:26 | Progress Notes ---
DATE: 06/18/2019 SUBJECTIVE: Chart reviewed and the patient interviewed. Also discussed the patient's condition with the staff and reviewed records and labs. The patient is still pleasantly confused, but she seems to be depressed. The patient also is still wandering around at times, but most of the time isolates herself. The patient also is still unable to provide any safe plan for self-care. At the same time, the patient is compliant with taking her medications with no side effects of medications. ASSESSMENT: The patient is still considered to be gravely disabled. TREATMENT PLAN: Continue to monitor behavior and condition closely. Also, continue working on discharge plans and placement issue and waiting for court hearing. JOB# [id number]
[2019-06-18] MEDS: Calcium Carb/Vit D 500 mg/200 U Tab PO SCH (08:17)
[2019-06-18] MEDS: Multivitamin w/ Minerals Tab PO SCH (08:17)
--- NOTE | 2019-06-18 12:43 | Internal Medicine Prog Note ---
Internal Medicine Subjective - Subjective Patient seen and examined:: with staff, chart reviewed Patient is:: awake, verbal, interactive, ambulating, confused Per staff patient has:: no adverse event, no episodes of fall, eating well, tolerating meds Internal Medicine Objective - Results Recent Labs: Laboratory Last Values POC Glucose 188 MG/DL (70 - 105) H 02/02/19 19:27 Triglycerides 162 mg/dL (<150) H 12/31/18 08:04 Cholesterol 234 mg/dL (<200) H 12/31/18 08:04 LDL Cholesterol Direct 155 mg/dL (75-193) 12/31/18 08:04 HDL Cholesterol 62 mg/dL (23-92) 12/31/18 08:04 - Physical Exam Vitals and I&O: Vital Signs Temp 97.4 F 06/18/19 06:33 Pulse 82 06/18/19 06:33 Resp 19 06/18/19 06:33 BP 129/74 06/18/19 06:33 Pulse Ox 97 06/18/19 06:33 Intake & Output 06/17/19 06/18/19 06/18/19 18:59 06:59 18:59 Intake Total 120 Balance 120 Intake: Oral 120 Other: # Voids 2 # Bowel Movements 1 Active Medications: Current Medications Acetaminophen (Tylenol) 650 mg PO Q4H PRN PRN Reason: Pain (Mild 1-3) Stop: 08/07/19 15:57 Last Admin: 06/08/19 16:13 Dose: 650 mg Alendronate Sodium (Fosamax) 70 mg PO QWED [facility] Stop: 07/01/19 07:29 Last Admin: 06/13/19 09:17 Dose: 70 mg Calcium/Vitamin D (Oscal W/Vitamin D) 1 tab PO DAILY [facility] Stop: 07/09/19 08:59 Last Admin: 06/18/19 08:17 Dose: 1 tab Donepezil HCl (Aricept) 10 mg PO HS [facility] Last Admin: 06/17/19 21:15 Dose: 10 mg General: demented, thin, appears younger HEENT: NC/AT, PERRLA, EOMI Neck: Supple, No JVD, No thyromegaly Lungs: CTAB Cardiovascular: RRR, Normal S1, Normal S2, with murmur Abdomen: soft, thin, non-distended, positive bowel sound Extremities: excoriation Neurological: no change Internal Medicine Assmt/Plan - Assessment Assessment: alzheimers dementa elevated chol djd osteoporosis ho old left hip fx - Plan Plan: fall precaution nutritional support cont on calcium supplemetn will cont to follow dw rn add mvi placement ongoing Nutritional Asmnt/Malnutr-PDOC - Dietary Evaluation Malnutrition Findings (Please click <Entered> for more info): Nutritional Asmnt/Malnutrition Start: 01/04/19 09: 50 Text: Status: Complete Freq: Protocol: Document 01/04/19 14:59 LCHENG (Rec: 01/04/19 15:06 LCHENG [email or web address]) Nutritional Asmnt/Malnutrition Patient General Information Nutritional Screening Moderate Risk Diagnosis psychosis Pertinent Medical Hx/Surgical Hx dementia, DJD, osteoporosis Subjective Information pt seen lying in bed, awake and alert, stated food has beed great. Pt is not a big eater. Encourage to eat balanced meals and pt agreed with it. Per EMR, PO intake 75 -100% Current Diet Order/ Nutrition Support regular Pertinent Medications reviewed Pertinent Labs 12/31 reviewed Nutritional Hx/Data Height 1.65 m Height (Calculated Centimeters) 165.1 Current Weight (lbs) 74.843 kg Weight (Calculated Kilograms) 74.8 Weight (Calculated Grams) 80541.7 [place] Body Weight 125 Body Mass Index (BMI) 27.4 Weight Status Overweight GI Symptoms GI Symptoms None Last BM 01/04 x 2 Difficult in: None Skin Integrity/Comment: intact Current %PO Good (75-100%) Estimated Nutritional Goals BEE in Kcals: Using Current wt Calories/Kcals/Kg 23-27 Kcals Calculated 4738-6445 Protein: Using Current wt Protein g/k.8 Protein Calculated 60 Fluid: ml 1725-1998ml (1ml/kcal) Nutritional Problem No current Nutrition Prob Problem N/A Malnutrition Alert Is there a minimum of two criteria No selected? Query Text:Check all the applicable criteria. A minimum of two criteria are recommended for diagnosis of either severe or non-severe malnutrition. Malnutrition Related to Morbid Obesity Malnutrition related to morbid obesity No Intervention/Recommendation Comments 1. Continue with regular diet as ordered. 2. Monitor PO intake, wt, labs and skin integrity 3. F/U as low risk in 7 days Expected Outcomes/Goals Expected Outcomes/Goals 1. PO intake to meet at least 75% of nutritional needs. 2. Wt stability, skin to remain intact, labs to approach WNL.
[2019-06-19] MEDS: Calcium Carb/Vit D 500 mg/200 U Tab PO SCH (09:17)
[2019-06-19] MEDS: Multivitamin w/ Minerals Tab PO SCH (09:17)
--- NOTE | 2019-06-19 10:45 | Progress Notes ---
DATE: SUBJECTIVE: Chart reviewed and the patient interviewed and discussed the patient's condition with the staff and reviewed records and labs. The patient is pleasantly confused. The patient also is anxious and she is still not sure about discharge plans. The patient is still thinking that she might go home. Otherwise, the patient is cooperative and compliant with treatment and the medications. ASSESSMENT: The patient is still considered to be gravely disabled. TREATMENT PLAN: We will continue current treatment, medications and waiting for placement. [facility]# [id number]
--- NOTE | 2019-06-19 12:35 | Internal Medicine Prog Note ---
Internal Medicine Subjective - Subjective Patient seen and examined:: with staff, chart reviewed Patient is:: awake, verbal, interactive, ambulating, confused Per staff patient has:: no adverse event, no episodes of fall, eating well, tolerating meds Internal Medicine Objective - Results Recent Labs: Laboratory Last Values POC Glucose 188 MG/DL (70 - 105) H 02/02/19 19:27 Triglycerides 162 mg/dL (<150) H 12/31/18 08:04 Cholesterol 234 mg/dL (<200) H 12/31/18 08:04 LDL Cholesterol Direct 155 mg/dL (75-193) 12/31/18 08:04 HDL Cholesterol 62 mg/dL (23-92) 12/31/18 08:04 - Physical Exam Vitals and I&O: Vital Signs Temp 97.1 F 06/19/19 06:06 Pulse 66 06/19/19 06:06 Resp 20 06/19/19 06:06 BP 117/68 06/19/19 06:06 Pulse Ox 97 06/19/19 06:06 Intake & Output 06/18/19 06/19/19 06/19/19 18:59 06:59 18:59 Intake Total 1250 180 Balance 1250 180 Intake: Oral 1250 180 Other: # Voids 1 # Bowel Movements 1 0 Active Medications: Current Medications Acetaminophen (Tylenol) 650 mg PO Q4H PRN PRN Reason: Pain (Mild 1-3) Stop: 08/07/19 15:57 Last Admin: 06/08/19 16:13 Dose: 650 mg Alendronate Sodium (Fosamax) 70 mg PO QWED [facility] Stop: 07/01/19 07:29 Last Admin: 06/13/19 09:17 Dose: 70 mg Calcium/Vitamin D (Oscal W/Vitamin D) 1 tab PO DAILY [facility] Stop: 07/09/19 08:59 Last Admin: 06/19/19 09:17 Dose: 1 tab Donepezil HCl (Aricept) 10 mg PO HS [facility] Last Admin: 06/18/19 20:48 Dose: 10 mg General: demented, thin, appears younger HEENT: NC/AT, PERRLA, EOMI Neck: Supple, No JVD, No thyromegaly Lungs: CTAB Cardiovascular: RRR, Normal S1, Normal S2, with murmur Abdomen: soft, thin, non-distended, positive bowel sound Extremities: excoriation Neurological: no change Internal Medicine Assmt/Plan - Assessment Assessment: alzheimers dementa elevated chol djd osteoporosis ho old left hip fx - Plan Plan: fall precaution nutritional support cont on calcium supplemetn will cont to follow dw rn add mvi placement ongoing Nutritional Asmnt/Malnutr-PDOC - Dietary Evaluation Malnutrition Findings (Please click <Entered> for more info): Nutritional Asmnt/Malnutrition Start: 01/04/19 09: 50 Text: Status: Complete Freq: Protocol: Document 01/04/19 14:59 LCHENG (Rec: 01/04/19 15:06 LCHENG [email or web address]) Nutritional Asmnt/Malnutrition Patient General Information Nutritional Screening Moderate Risk Diagnosis psychosis Pertinent Medical Hx/Surgical Hx dementia, DJD, osteoporosis Subjective Information pt seen lying in bed, awake and alert, stated food has beed great. Pt is not a big eater. Encourage to eat balanced meals and pt agreed with it. Per EMR, PO intake 75 -100% Current Diet Order/ Nutrition Support regular Pertinent Medications reviewed Pertinent Labs 12/31 reviewed Nutritional Hx/Data Height 1.65 m Height (Calculated Centimeters) 165.1 Current Weight (lbs) 74.843 kg Weight (Calculated Kilograms) 74.8 Weight (Calculated Grams) 62870.7 [place] Body Weight 125 Body Mass Index (BMI) 27.4 Weight Status Overweight GI Symptoms GI Symptoms None Last BM 01/04 x 2 Difficult in: None Skin Integrity/Comment: intact Current %PO Good (75-100%) Estimated Nutritional Goals BEE in Kcals: Using Current wt Calories/Kcals/Kg 23-27 Kcals Calculated 2868-9437 Protein: Using Current wt Protein g/k.8 Protein Calculated 60 Fluid: ml 1725-1998ml (1ml/kcal) Nutritional Problem No current Nutrition Prob Problem N/A Malnutrition Alert Is there a minimum of two criteria No selected? Query Text:Check all the applicable criteria. A minimum of two criteria are recommended for diagnosis of either severe or non-severe malnutrition. Malnutrition Related to Morbid Obesity Malnutrition related to morbid obesity No Intervention/Recommendation Comments 1. Continue with regular diet as ordered. 2. Monitor PO intake, wt, labs and skin integrity 3. F/U as low risk in 7 days Expected Outcomes/Goals Expected Outcomes/Goals 1. PO intake to meet at least 75% of nutritional needs. 2. Wt stability, skin to remain intact, labs to approach WNL.
[2019-06-20] MEDS: Multivitamin w/ Minerals Tab PO SCH (08:36)
[2019-06-20] MEDS: Calcium Carb/Vit D 500 mg/200 U Tab PO SCH (08:36)
--- NOTE | 2019-06-20 10:47 | Progress Notes ---
DATE: SUBJECTIVE: Chart reviewed and the patient interviewed. Also, discussed the patient's condition with the staff and reviewed records and labs. The patient is still pleasantly confused and she still needs redirections. The patient also is still interacting minimally with others and seems to be in a depressed mood. Otherwise, no side effects. She also is still continued to comply with taking her medications with no side effects of medications. ASSESSMENT: The patient is still waiting for placement. TREATMENT PLAN: Continue to monitor behavior and condition closely and continue working on her ineffective coping and her discharge plans. [facility]# [id number]
--- NOTE | 2019-06-20 12:31 | Internal Medicine Prog Note ---
Internal Medicine Subjective - Subjective Patient seen and examined:: with staff, chart reviewed Patient is:: awake, verbal, interactive, ambulating, confused Per staff patient has:: no adverse event, no episodes of fall, eating well, tolerating meds Internal Medicine Objective - Results Recent Labs: Laboratory Last Values POC Glucose 188 MG/DL (70 - 105) H 02/02/19 19:27 Triglycerides 162 mg/dL (<150) H 12/31/18 08:04 Cholesterol 234 mg/dL (<200) H 12/31/18 08:04 LDL Cholesterol Direct 155 mg/dL (75-193) 12/31/18 08:04 HDL Cholesterol 62 mg/dL (23-92) 12/31/18 08:04 - Physical Exam Vitals and I&O: Vital Signs Temp 98.1 F 06/20/19 06:04 Pulse 63 06/20/19 06:04 Resp 20 06/20/19 08:00 BP 134/77 06/20/19 06:04 Pulse Ox 95 06/20/19 06:04 Intake & Output 06/19/19 06/20/19 06/20/19 18:59 06:59 18:59 Intake Total 240 Balance 240 Intake: Oral 240 Other: # Voids 3 # Bowel Movements 0 Active Medications: Current Medications Acetaminophen (Tylenol) 650 mg PO Q4H PRN PRN Reason: Pain (Mild 1-3) Stop: 08/07/19 15:57 Last Admin: 06/08/19 16:13 Dose: 650 mg Alendronate Sodium (Fosamax) 70 mg PO QWED [facility] Stop: 07/01/19 07:29 Last Admin: 06/20/19 06:37 Dose: 70 mg Calcium/Vitamin D (Oscal W/Vitamin D) 1 tab PO DAILY [facility] Stop: 07/09/19 08:59 Last Admin: 06/20/19 08:36 Dose: 1 tab Donepezil HCl (Aricept) 10 mg PO HS [facility] Last Admin: 06/19/19 20:51 Dose: 10 mg General: demented, thin, appears younger HEENT: NC/AT, PERRLA, EOMI Neck: Supple, No JVD, No thyromegaly Lungs: CTAB Cardiovascular: RRR, Normal S1, Normal S2, with murmur Abdomen: soft, thin, non-distended, positive bowel sound Extremities: excoriation Neurological: no change Internal Medicine Assmt/Plan - Assessment Assessment: alzheimers dementa elevated chol djd osteoporosis ho old left hip fx - Plan Plan: fall precaution nutritional support cont on calcium supplemetn will cont to follow dw rn add mvi placement ongoing Nutritional Asmnt/Malnutr-PDOC - Dietary Evaluation Malnutrition Findings (Please click <Entered> for more info): Nutritional Asmnt/Malnutrition Start: 01/04/19 09: 50 Text: Status: Complete Freq: Protocol: Document 01/04/19 14:59 LCHENG (Rec: 01/04/19 15:06 LCHENG [email or web address]) Nutritional Asmnt/Malnutrition Patient General Information Nutritional Screening Moderate Risk Diagnosis psychosis Pertinent Medical Hx/Surgical Hx dementia, DJD, osteoporosis Subjective Information pt seen lying in bed, awake and alert, stated food has beed great. Pt is not a big eater. Encourage to eat balanced meals and pt agreed with it. Per EMR, PO intake 75 -100% Current Diet Order/ Nutrition Support regular Pertinent Medications reviewed Pertinent Labs 12/31 reviewed Nutritional Hx/Data Height 1.65 m Height (Calculated Centimeters) 165.1 Current Weight (lbs) 74.843 kg Weight (Calculated Kilograms) 74.8 Weight (Calculated Grams) 97299.7 [place] Body Weight 125 Body Mass Index (BMI) 27.4 Weight Status Overweight GI Symptoms GI Symptoms None Last BM 01/04 x 2 Difficult in: None Skin Integrity/Comment: intact Current %PO Good (75-100%) Estimated Nutritional Goals BEE in Kcals: Using Current wt Calories/Kcals/Kg 23-27 Kcals Calculated 2302-9572 Protein: Using Current wt Protein g/k.8 Protein Calculated 60 Fluid: ml 1725-1998ml (1ml/kcal) Nutritional Problem No current Nutrition Prob Problem N/A Malnutrition Alert Is there a minimum of two criteria No selected? Query Text:Check all the applicable criteria. A minimum of two criteria are recommended for diagnosis of either severe or non-severe malnutrition. Malnutrition Related to Morbid Obesity Malnutrition related to morbid obesity No Intervention/Recommendation Comments 1. Continue with regular diet as ordered. 2. Monitor PO intake, wt, labs and skin integrity 3. F/U as low risk in 7 days Expected Outcomes/Goals Expected Outcomes/Goals 1. PO intake to meet at least 75% of nutritional needs. 2. Wt stability, skin to remain intact, labs to approach WNL.
[2019-06-21] MEDS: Calcium Carb/Vit D 500 mg/200 U Tab PO SCH (08:15)
[2019-06-21] MEDS: Multivitamin w/ Minerals Tab PO SCH (08:15)
--- NOTE | 2019-06-21 11:38 | Progress Notes ---
DATE: SUBJECTIVE: Chart reviewed and the patient interviewed. Also discussed the patient's condition with the staff and reviewed records and labs. The patient went to court yesterday, but the outcome is not clear. The patient is still pleasantly confused and she is still wandering around the unit in a confused state, but no behavioral problems and easier to redirect her. She is also compliant with taking her medications with no side effects. ASSESSMENT: The patient is still considered to be gravely disabled and waiting for placement. TREATMENT PLAN: We will continue to monitor behavior and condition closely. Also, continue to work on her ineffective coping and her placement issue after her discharge. JOB# [id number]
--- NOTE | 2019-06-21 12:58 | Internal Medicine Prog Note ---
Internal Medicine Subjective - Subjective Patient seen and examined:: with staff, chart reviewed Patient is:: awake, verbal, interactive, ambulating, confused Per staff patient has:: no adverse event, no episodes of fall, eating well, tolerating meds Internal Medicine Objective - Results Recent Labs: Laboratory Last Values POC Glucose 188 MG/DL (70 - 105) H 02/02/19 19:27 Triglycerides 162 mg/dL (<150) H 12/31/18 08:04 Cholesterol 234 mg/dL (<200) H 12/31/18 08:04 LDL Cholesterol Direct 155 mg/dL (75-193) 12/31/18 08:04 HDL Cholesterol 62 mg/dL (23-92) 12/31/18 08:04 - Physical Exam Vitals and I&O: Vital Signs Temp 98.2 F 06/21/19 06:38 Pulse 79 06/21/19 06:38 Resp 19 06/21/19 06:38 BP 126/76 06/21/19 06:38 Pulse Ox 97 06/21/19 06:38 Intake & Output 06/20/19 06/21/19 06/21/19 18:59 06:59 18:59 Intake Total 400 120 Balance 400 120 Intake: Oral 400 120 Other: # Voids 2 3 Active Medications: Current Medications Acetaminophen (Tylenol) 650 mg PO Q4H PRN PRN Reason: Pain (Mild 1-3) Stop: 08/07/19 15:57 Last Admin: 06/08/19 16:13 Dose: 650 mg Alendronate Sodium (Fosamax) 70 mg PO QWED [facility] Stop: 07/01/19 07:29 Last Admin: 06/20/19 06:37 Dose: 70 mg Calcium/Vitamin D (Oscal W/Vitamin D) 1 tab PO DAILY [facility] Stop: 07/09/19 08:59 Last Admin: 06/21/19 08:15 Dose: 1 tab Donepezil HCl (Aricept) 10 mg PO HS [facility] Last Admin: 06/20/19 20:49 Dose: 10 mg General: demented, thin, appears younger HEENT: NC/AT, PERRLA, EOMI Neck: Supple, No JVD, No thyromegaly Lungs: CTAB Cardiovascular: RRR, Normal S1, Normal S2, with murmur Abdomen: soft, thin, non-distended, positive bowel sound Extremities: excoriation Neurological: no change Internal Medicine Assmt/Plan - Assessment Assessment: alzheimers dementa elevated chol djd osteoporosis ho old left hip fx - Plan Plan: fall precaution nutritional support cont on calcium supplemetn will cont to follow dw rn add mvi placement ongoing Nutritional Asmnt/Malnutr-PDOC - Dietary Evaluation Malnutrition Findings (Please click <Entered> for more info): Nutritional Asmnt/Malnutrition Start: 01/04/19 09: 50 Text: Status: Complete Freq: Protocol: Document 01/04/19 14:59 LCHENG (Rec: 01/04/19 15:06 LCHENG [email or web address]) Nutritional Asmnt/Malnutrition Patient General Information Nutritional Screening Moderate Risk Diagnosis psychosis Pertinent Medical Hx/Surgical Hx dementia, DJD, osteoporosis Subjective Information pt seen lying in bed, awake and alert, stated food has beed great. Pt is not a big eater. Encourage to eat balanced meals and pt agreed with it. Per EMR, PO intake 75 -100% Current Diet Order/ Nutrition Support regular Pertinent Medications reviewed Pertinent Labs 12/31 reviewed Nutritional Hx/Data Height 1.65 m Height (Calculated Centimeters) 165.1 Current Weight (lbs) 74.843 kg Weight (Calculated Kilograms) 74.8 Weight (Calculated Grams) 38836.7 [place] Body Weight 125 Body Mass Index (BMI) 27.4 Weight Status Overweight GI Symptoms GI Symptoms None Last BM 01/04 x 2 Difficult in: None Skin Integrity/Comment: intact Current %PO Good (75-100%) Estimated Nutritional Goals BEE in Kcals: Using Current wt Calories/Kcals/Kg 23-27 Kcals Calculated 9529-2917 Protein: Using Current wt Protein g/k.8 Protein Calculated 60 Fluid: ml 1725-1998ml (1ml/kcal) Nutritional Problem No current Nutrition Prob Problem N/A Malnutrition Alert Is there a minimum of two criteria No selected? Query Text:Check all the applicable criteria. A minimum of two criteria are recommended for diagnosis of either severe or non-severe malnutrition. Malnutrition Related to Morbid Obesity Malnutrition related to morbid obesity No Intervention/Recommendation Comments 1. Continue with regular diet as ordered. 2. Monitor PO intake, wt, labs and skin integrity 3. F/U as low risk in 7 days Expected Outcomes/Goals Expected Outcomes/Goals 1. PO intake to meet at least 75% of nutritional needs. 2. Wt stability, skin to remain intact, labs to approach WNL.
[2019-06-22] MEDS: Multivitamin w/ Minerals Tab PO SCH (09:18)
[2019-06-22] MEDS: Calcium Carb/Vit D 500 mg/200 U Tab PO SCH (09:18)
--- NOTE | 2019-06-22 12:34 | Internal Medicine Prog Note ---
Internal Medicine Subjective - Subjective Patient seen and examined:: with staff, chart reviewed Patient is:: awake, verbal, interactive, ambulating, confused Per staff patient has:: no adverse event, no episodes of fall, eating well, tolerating meds Internal Medicine Objective - Results Recent Labs: Laboratory Last Values POC Glucose 188 MG/DL (70 - 105) H 02/02/19 19:27 Triglycerides 162 mg/dL (<150) H 12/31/18 08:04 Cholesterol 234 mg/dL (<200) H 12/31/18 08:04 LDL Cholesterol Direct 155 mg/dL (75-193) 12/31/18 08:04 HDL Cholesterol 62 mg/dL (23-92) 12/31/18 08:04 - Physical Exam Vitals and I&O: Vital Signs Temp 97.8 F 06/22/19 06:40 Pulse 77 06/22/19 06:40 Resp 18 06/22/19 11:19 BP 117/64 06/22/19 06:40 Pulse Ox 97 06/22/19 06:40 Intake & Output 06/21/19 06/22/19 06/22/19 18:59 06:59 18:59 Intake Total 1200 120 Balance 1200 120 Intake: Oral 1200 120 Other: # Voids 3 3 # Bowel Movements 0 Active Medications: Current Medications Acetaminophen (Tylenol) 650 mg PO Q4H PRN PRN Reason: Pain (Mild 1-3) Stop: 08/07/19 15:57 Last Admin: 06/08/19 16:13 Dose: 650 mg Alendronate Sodium (Fosamax) 70 mg PO QWED [facility] Stop: 07/01/19 07:29 Last Admin: 06/20/19 06:37 Dose: 70 mg Calcium/Vitamin D (Oscal W/Vitamin D) 1 tab PO DAILY [facility] Stop: 07/09/19 08:59 Last Admin: 06/22/19 09:18 Dose: 1 tab Donepezil HCl (Aricept) 10 mg PO HS [facility] Last Admin: 06/21/19 21:03 Dose: 10 mg General: demented, thin, appears younger HEENT: NC/AT, PERRLA, EOMI Neck: Supple, No JVD, No thyromegaly Lungs: CTAB Cardiovascular: RRR, Normal S1, Normal S2, with murmur Abdomen: soft, thin, non-distended, positive bowel sound Extremities: excoriation Neurological: no change Internal Medicine Assmt/Plan - Assessment Assessment: alzheimers dementa elevated chol djd osteoporosis ho old left hip fx - Plan Plan: fall precaution nutritional support cont on calcium supplemetn will cont to follow dw rn add mvi placement ongoing Nutritional Asmnt/Malnutr-PDOC - Dietary Evaluation Malnutrition Findings (Please click <Entered> for more info): Nutritional Asmnt/Malnutrition Start: 01/04/19 09: 50 Text: Status: Complete Freq: Protocol: Document 01/04/19 14:59 LCHENG (Rec: 01/04/19 15:06 LCHENG [email or web address]) Nutritional Asmnt/Malnutrition Patient General Information Nutritional Screening Moderate Risk Diagnosis psychosis Pertinent Medical Hx/Surgical Hx dementia, DJD, osteoporosis Subjective Information pt seen lying in bed, awake and alert, stated food has beed great. Pt is not a big eater. Encourage to eat balanced meals and pt agreed with it. Per EMR, PO intake 75 -100% Current Diet Order/ Nutrition Support regular Pertinent Medications reviewed Pertinent Labs 12/31 reviewed Nutritional Hx/Data Height 1.65 m Height (Calculated Centimeters) 165.1 Current Weight (lbs) 74.843 kg Weight (Calculated Kilograms) 74.8 Weight (Calculated Grams) 81384.7 [place] Body Weight 125 Body Mass Index (BMI) 27.4 Weight Status Overweight GI Symptoms GI Symptoms None Last BM 01/04 x 2 Difficult in: None Skin Integrity/Comment: intact Current %PO Good (75-100%) Estimated Nutritional Goals BEE in Kcals: Using Current wt Calories/Kcals/Kg 23-27 Kcals Calculated 2537-7851 Protein: Using Current wt Protein g/k.8 Protein Calculated 60 Fluid: ml 1725-1998ml (1ml/kcal) Nutritional Problem No current Nutrition Prob Problem N/A Malnutrition Alert Is there a minimum of two criteria No selected? Query Text:Check all the applicable criteria. A minimum of two criteria are recommended for diagnosis of either severe or non-severe malnutrition. Malnutrition Related to Morbid Obesity Malnutrition related to morbid obesity No Intervention/Recommendation Comments 1. Continue with regular diet as ordered. 2. Monitor PO intake, wt, labs and skin integrity 3. F/U as low risk in 7 days Expected Outcomes/Goals Expected Outcomes/Goals 1. PO intake to meet at least 75% of nutritional needs. 2. Wt stability, skin to remain intact, labs to approach WNL.
[2019-06-23] MEDS: Calcium Carb/Vit D 500 mg/200 U Tab PO SCH (08:49)
[2019-06-23] MEDS: Multivitamin w/ Minerals Tab PO SCH (08:49)
--- NOTE | 2019-06-23 13:58 | Internal Medicine Prog Note ---
Internal Medicine Subjective - Subjective Service Date: 06/23/19 Patient is:: awake, verbal, interactive, ambulating, confused Per staff patient has:: no adverse event, no episodes of fall, eating well, tolerating meds Internal Medicine Objective - Results Recent Labs: Laboratory Last Values POC Glucose 188 MG/DL (70 - 105) H 02/02/19 19:27 Triglycerides 162 mg/dL (<150) H 12/31/18 08:04 Cholesterol 234 mg/dL (<200) H 12/31/18 08:04 LDL Cholesterol Direct 155 mg/dL (75-193) 12/31/18 08:04 HDL Cholesterol 62 mg/dL (23-92) 12/31/18 08:04 - Physical Exam Vitals and I&O: Vital Signs Temp 97.6 F 06/23/19 06:12 Pulse 89 06/23/19 06:12 Resp 18 06/23/19 08:00 BP 109/71 06/23/19 06:12 Pulse Ox 99 06/23/19 06:12 Intake & Output 06/22/19 06/23/19 06/23/19 18:59 06:59 18:59 Intake Total 1200 240 Balance 1200 240 Intake: Oral 1200 240 Other: # Voids 1 # Bowel Movements 1 Active Medications: Current Medications Acetaminophen (Tylenol) 650 mg PO Q4H PRN PRN Reason: Pain (Mild 1-3) Stop: 08/07/19 15:57 Last Admin: 06/08/19 16:13 Dose: 650 mg Alendronate Sodium (Fosamax) 70 mg PO QWED [facility] Stop: 07/01/19 07:29 Last Admin: 06/20/19 06:37 Dose: 70 mg Calcium/Vitamin D (Oscal W/Vitamin D) 1 tab PO DAILY [facility] Stop: 07/09/19 08:59 Last Admin: 06/23/19 08:49 Dose: 1 tab Donepezil HCl (Aricept) 10 mg PO HS [facility] Last Admin: 06/22/19 20:40 Dose: 10 mg General: demented, thin, appears younger HEENT: NC/AT, PERRLA, EOMI Neck: Supple, No JVD, No thyromegaly Lungs: CTAB Cardiovascular: RRR, Normal S1, Normal S2, with murmur Abdomen: soft, thin, non-distended, positive bowel sound Extremities: excoriation Neurological: no change Internal Medicine Assmt/Plan - Assessment Assessment: alzheimers dementa elevated chol djd osteoporosis - Plan Plan: fall precaution nutritional support cont on calcium supplemetn will cont to follow dw rn add mvi placement ongoing Nutritional Asmnt/Malnutr-PDOC - Dietary Evaluation Malnutrition Findings (Please click <Entered> for more info): Nutritional Asmnt/Malnutrition Start: 01/04/19 09: 50 Text: Status: Complete Freq: Protocol: Document 01/04/19 14:59 LCHENG (Rec: 01/04/19 15:06 LCHENG [email or web address]) Nutritional Asmnt/Malnutrition Patient General Information Nutritional Screening Moderate Risk Diagnosis psychosis Pertinent Medical Hx/Surgical Hx dementia, DJD, osteoporosis Subjective Information pt seen lying in bed, awake and alert, stated food has beed great. Pt is not a big eater. Encourage to eat balanced meals and pt agreed with it. Per EMR, PO intake 75 -100% Current Diet Order/ Nutrition Support regular Pertinent Medications reviewed Pertinent Labs 12/31 reviewed Nutritional Hx/Data Height 5 ft 5 in Height (Calculated Centimeters) 165.1 Current Weight (lbs) 165 lb Weight (Calculated Kilograms) 74.8 Weight (Calculated Grams) 60818.7 [place] Body Weight 125 Body Mass Index (BMI) 27.4 Weight Status Overweight GI Symptoms GI Symptoms None Last BM 01/04 x 2 Difficult in: None Skin Integrity/Comment: intact Current %PO Good (75-100%) Estimated Nutritional Goals BEE in Kcals: Using Current wt Calories/Kcals/Kg 23-27 Kcals Calculated 6936-4668 Protein: Using Current wt Protein g/k.8 Protein Calculated 60 Fluid: ml 1725-1998ml (1ml/kcal) Nutritional Problem No current Nutrition Prob Problem N/A Malnutrition Alert Is there a minimum of two criteria No selected? Query Text:Check all the applicable criteria. A minimum of two criteria are recommended for diagnosis of either severe or non-severe malnutrition. Malnutrition Related to Morbid Obesity Malnutrition related to morbid obesity No Intervention/Recommendation Comments 1. Continue with regular diet as ordered. 2. Monitor PO intake, wt, labs and skin integrity 3. F/U as low risk in 7 days Expected Outcomes/Goals Expected Outcomes/Goals 1. PO intake to meet at least 75% of nutritional needs. 2. Wt stability, skin to remain intact, labs to approach WNL.
--- NOTE | 2019-06-23 21:12 | Progress Notes ---
DATE: 06/23/2019 Case was discussed with staff of the patient, reviewed records. The patient is a well-known case to me and seen her many times. Covering for Dr. Mason. The patient has been interactive, participating in groups, but she is demented, confused. Continues to be unable to make safe plan for self-care. Continues to have poor insight. No side effects with the medication, no sedation, no nausea. We will continue outpatient group therapy, milieu therapy, adjust medication as needed. JOB# [id number]
[2019-06-24] MEDS: Multivitamin w/ Minerals Tab PO SCH (08:49)
[2019-06-24] MEDS: Calcium Carb/Vit D 500 mg/200 U Tab PO SCH (08:49)
--- NOTE | 2019-06-24 15:35 | Internal Medicine Prog Note ---
Internal Medicine Subjective - Subjective Service Date: 06/24/19 Patient is:: awake, verbal, interactive, ambulating, confused Per staff patient has:: no adverse event, no episodes of fall, eating well, tolerating meds Internal Medicine Objective - Results Recent Labs: Laboratory Last Values POC Glucose 188 MG/DL (70 - 105) H 02/02/19 19:27 Triglycerides 162 mg/dL (<150) H 12/31/18 08:04 Cholesterol 234 mg/dL (<200) H 12/31/18 08:04 LDL Cholesterol Direct 155 mg/dL (75-193) 12/31/18 08:04 HDL Cholesterol 62 mg/dL (23-92) 12/31/18 08:04 - Physical Exam Vitals and I&O: Vital Signs Temp 97.3 F 06/24/19 06:25 Pulse 68 06/24/19 06:25 Resp 18 06/24/19 07:49 BP 124/75 06/24/19 06:25 Pulse Ox 94 06/24/19 06:25 Intake & Output 06/23/19 06/24/19 06/24/19 18:59 06:59 18:59 Intake Total 1100 240 Balance 1100 240 Intake: Oral 1100 240 Other: # Voids 3 1 # Bowel Movements 0 Active Medications: Current Medications Acetaminophen (Tylenol) 650 mg PO Q4H PRN PRN Reason: Pain (Mild 1-3) Stop: 08/07/19 15:57 Last Admin: 06/08/19 16:13 Dose: 650 mg Alendronate Sodium (Fosamax) 70 mg PO QWED [facility] Stop: 07/01/19 07:29 Last Admin: 06/20/19 06:37 Dose: 70 mg Calcium/Vitamin D (Oscal W/Vitamin D) 1 tab PO DAILY [facility] Stop: 07/09/19 08:59 Last Admin: 06/24/19 08:49 Dose: 1 tab Donepezil HCl (Aricept) 10 mg PO HS [facility] Last Admin: 06/23/19 20:19 Dose: 10 mg General: demented, thin, appears younger HEENT: NC/AT, PERRLA, EOMI Neck: Supple, No JVD, No thyromegaly Lungs: CTAB Cardiovascular: RRR, Normal S1, Normal S2, with murmur Abdomen: soft, thin, non-distended, positive bowel sound Extremities: excoriation Neurological: no change Internal Medicine Assmt/Plan - Assessment Assessment: alzheimers dementa elevated chol djd osteoporosis - Plan Plan: fall precaution nutritional support cont on calcium supplemetn will cont to follow dw rn add mvi placement ongoing Nutritional Asmnt/Malnutr-PDOC - Dietary Evaluation Malnutrition Findings (Please click <Entered> for more info): Nutritional Asmnt/Malnutrition Start: 01/04/19 09: 50 Text: Status: Complete Freq: Protocol: Document 01/04/19 14:59 LCHENG (Rec: 01/04/19 15:06 LCHENG [email or web address]) Nutritional Asmnt/Malnutrition Patient General Information Nutritional Screening Moderate Risk Diagnosis psychosis Pertinent Medical Hx/Surgical Hx dementia, DJD, osteoporosis Subjective Information pt seen lying in bed, awake and alert, stated food has beed great. Pt is not a big eater. Encourage to eat balanced meals and pt agreed with it. Per EMR, PO intake 75 -100% Current Diet Order/ Nutrition Support regular Pertinent Medications reviewed Pertinent Labs 12/31 reviewed Nutritional Hx/Data Height 5 ft 5 in Height (Calculated Centimeters) 165.1 Current Weight (lbs) 165 lb Weight (Calculated Kilograms) 74.8 Weight (Calculated Grams) 78184.7 [place] Body Weight 125 Body Mass Index (BMI) 27.4 Weight Status Overweight GI Symptoms GI Symptoms None Last BM 01/04 x 2 Difficult in: None Skin Integrity/Comment: intact Current %PO Good (75-100%) Estimated Nutritional Goals BEE in Kcals: Using Current wt Calories/Kcals/Kg 23-27 Kcals Calculated 4919-9264 Protein: Using Current wt Protein g/k.8 Protein Calculated 60 Fluid: ml 1725-1998ml (1ml/kcal) Nutritional Problem No current Nutrition Prob Problem N/A Malnutrition Alert Is there a minimum of two criteria No selected? Query Text:Check all the applicable criteria. A minimum of two criteria are recommended for diagnosis of either severe or non-severe malnutrition. Malnutrition Related to Morbid Obesity Malnutrition related to morbid obesity No Intervention/Recommendation Comments 1. Continue with regular diet as ordered. 2. Monitor PO intake, wt, labs and skin integrity 3. F/U as low risk in 7 days Expected Outcomes/Goals Expected Outcomes/Goals 1. PO intake to meet at least 75% of nutritional needs. 2. Wt stability, skin to remain intact, labs to approach WNL.
--- NOTE | 2019-06-24 20:25 | Progress Notes ---
DATE: 06/24/2019 Case was discussed with staff of the patient, reviewed records. The patient continues to be in good mood. She is demented, confused. No suicidal ideation. No homicidal ideation. No paranoia. No side effects. We will continue outpatient group therapy, milieu therapy. Awaiting on placement. [facility]# [id number]
[2019-06-25] MEDS: Multivitamin w/ Minerals Tab PO SCH (08:13)
[2019-06-25] MEDS: Calcium Carb/Vit D 500 mg/200 U Tab PO SCH (08:13)
--- NOTE | 2019-06-25 12:32 | Internal Medicine Prog Note ---
Internal Medicine Subjective - Subjective Patient seen and examined:: with staff, chart reviewed Patient is:: awake, verbal, interactive, ambulating, confused Per staff patient has:: no adverse event, no episodes of fall, eating well, tolerating meds Internal Medicine Objective - Results Recent Labs: Laboratory Last Values POC Glucose 188 MG/DL (70 - 105) H 02/02/19 19:27 Triglycerides 162 mg/dL (<150) H 12/31/18 08:04 Cholesterol 234 mg/dL (<200) H 12/31/18 08:04 LDL Cholesterol Direct 155 mg/dL (75-193) 12/31/18 08:04 HDL Cholesterol 62 mg/dL (23-92) 12/31/18 08:04 - Physical Exam Vitals and I&O: Vital Signs Temp 97.2 F 06/25/19 06:16 Pulse 74 06/25/19 06:16 Resp 18 06/25/19 07:33 BP 120/78 06/25/19 06:16 Pulse Ox 98 06/25/19 06:16 Intake & Output 06/24/19 06/25/19 06/25/19 18:59 06:59 18:59 Intake Total 950 Balance 950 Intake: Oral 950 Other: # Voids 3 # Bowel Movements 1 Active Medications: Current Medications Acetaminophen (Tylenol) 650 mg PO Q4H PRN PRN Reason: Pain (Mild 1-3) Stop: 08/07/19 15:57 Last Admin: 06/08/19 16:13 Dose: 650 mg Alendronate Sodium (Fosamax) [address] [facility] Stop: 07/01/19 07:29 Last Admin: 06/20/19 06:37 Dose: 70 mg Calcium/Vitamin D (Oscal W/Vitamin D) [address] [facility] Stop: 07/09/19 08:59 Last Admin: 06/25/19 08:13 Dose: 1 tab Donepezil HCl (Aricept) [address] [facility] Last Admin: 06/24/19 20:59 Dose: 10 mg General: demented, thin, appears younger HEENT: NC/AT, PERRLA, EOMI Neck: Supple, No JVD, No thyromegaly Lungs: CTAB Cardiovascular: RRR, Normal S1, Normal S2, with murmur Abdomen: soft, thin, non-distended, positive bowel sound Extremities: excoriation Neurological: no change Internal Medicine Assmt/Plan - Assessment Assessment: alzheimers dementa elevated chol djd osteoporosis ho old left hip fx - Plan Plan: fall precaution nutritional support cont on calcium supplemetn will cont to follow dw rn add mvi placement ongoing Nutritional Asmnt/Malnutr-PDOC - Dietary Evaluation Malnutrition Findings (Please click <Entered> for more info): Nutritional Asmnt/Malnutrition Start: 01/04/19 09: 50 Text: Status: Complete Freq: Protocol: Document 01/04/19 14:59 LCHENG (Rec: 01/04/19 15:06 LCHENG [email or web address]) Nutritional Asmnt/Malnutrition Patient General Information Nutritional Screening Moderate Risk Diagnosis psychosis Pertinent Medical Hx/Surgical Hx dementia, DJD, osteoporosis Subjective Information pt seen lying in bed, awake and alert, stated food has beed great. Pt is not a big eater. Encourage to eat balanced meals and pt agreed with it. Per EMR, PO intake 75 -100% Current Diet Order/ Nutrition Support regular Pertinent Medications reviewed Pertinent Labs 12/31 reviewed Nutritional Hx/Data Height 1.65 m Height (Calculated Centimeters) 165.1 Current Weight (lbs) 74.843 kg Weight (Calculated Kilograms) 74.8 Weight (Calculated Grams) 61910.7 [place] Body Weight 125 Body Mass Index (BMI) 27.4 Weight Status Overweight GI Symptoms GI Symptoms None Last BM 01/04 x 2 Difficult in: None Skin Integrity/Comment: intact Current %PO Good (75-100%) Estimated Nutritional Goals BEE in Kcals: Using Current wt Calories/Kcals/Kg 23-27 Kcals Calculated 4030-7766 Protein: Using Current wt Protein g/k.8 Protein Calculated 60 Fluid: ml 1725-1998ml (1ml/kcal) Nutritional Problem No current Nutrition Prob Problem N/A Malnutrition Alert Is there a minimum of two criteria No selected? Query Text:Check all the applicable criteria. A minimum of two criteria are recommended for diagnosis of either severe or non-severe malnutrition. Malnutrition Related to Morbid Obesity Malnutrition related to morbid obesity No Intervention/Recommendation Comments 1. Continue with regular diet as ordered. 2. Monitor PO intake, wt, labs and skin integrity 3. F/U as low risk in 7 days Expected Outcomes/Goals Expected Outcomes/Goals 1. PO intake to meet at least 75% of nutritional needs. 2. Wt stability, skin to remain intact, labs to approach WNL.
--- NOTE | 2019-06-26 04:33 | Progress Notes ---
DATE: 06/25/2019 SUBJECTIVE: Chart was reviewed and the patient interviewed. Also discussed the patient's condition with the staff and reviewed records and labs. The patient is neatly dressed and she is in a better hygiene. The patient also is cooperative and compliant with taking her medications. She also is still wandering around the unit, but no agitation or behavioral problems. She also is compliant with taking her medications with no side effects of medications. ASSESSMENT: The patient is still considered to be gravely disabled. TREATMENT PLAN: Continue current medications and monitoring behavior. Also continue to work and waiting for discharge plans and placement issue. JOB# [id number]
[2019-06-26] MEDS: Calcium Carb/Vit D 500 mg/200 U Tab PO SCH (08:30)
[2019-06-26] MEDS: Multivitamin w/ Minerals Tab PO SCH (08:30)
--- NOTE | 2019-06-26 13:01 | Internal Medicine Prog Note ---
Internal Medicine Subjective - Subjective Patient seen and examined:: with staff, chart reviewed Patient is:: awake, verbal, interactive, ambulating, confused Per staff patient has:: no adverse event, no episodes of fall, eating well, tolerating meds Internal Medicine Objective - Results Recent Labs: Laboratory Last Values POC Glucose 188 MG/DL (70 - 105) H 02/02/19 19:27 Triglycerides 162 mg/dL (<150) H 12/31/18 08:04 Cholesterol 234 mg/dL (<200) H 12/31/18 08:04 LDL Cholesterol Direct 155 mg/dL (75-193) 12/31/18 08:04 HDL Cholesterol 62 mg/dL (23-92) 12/31/18 08:04 - Physical Exam Vitals and I&O: Vital Signs Temp 97.9 F 06/26/19 06:10 Pulse 66 06/26/19 06:10 Resp 18 06/26/19 08:00 BP 112/69 06/26/19 06:10 Pulse Ox 98 06/26/19 06:10 Intake & Output 06/25/19 06/26/19 06/26/19 18:59 06:59 18:59 Intake Total 900 300 Balance 900 300 Intake: Oral 900 300 Other: # Voids 4 1 # Bowel Movements 1 0 Active Medications: Current Medications Acetaminophen (Tylenol) 650 mg PO Q4H PRN PRN Reason: Pain (Mild 1-3) Stop: 08/07/19 15:57 Last Admin: 06/08/19 16:13 Dose: 650 mg Alendronate Sodium (Fosamax) 70 mg PO QWED [facility] Stop: 07/01/19 07:29 Last Admin: 06/20/19 06:37 Dose: 70 mg Calcium/Vitamin D (Oscal W/Vitamin D) 1 tab PO DAILY [facility] Stop: 07/09/19 08:59 Last Admin: 06/26/19 08:30 Dose: 1 tab Donepezil HCl (Aricept) 10 mg PO HS [facility] Last Admin: 06/25/19 21:31 Dose: 10 mg General: demented, thin, appears younger HEENT: NC/AT, PERRLA, EOMI Neck: Supple, No JVD, No thyromegaly Lungs: CTAB Cardiovascular: RRR, Normal S1, Normal S2, with murmur Abdomen: soft, thin, non-distended, positive bowel sound Extremities: excoriation Neurological: no change Internal Medicine Assmt/Plan - Assessment Assessment: alzheimers dementa elevated chol djd osteoporosis ho old left hip fx - Plan Plan: fall precaution nutritional support cont on calcium supplemetn will cont to follow dw rn add mvi placement ongoing Nutritional Asmnt/Malnutr-PDOC - Dietary Evaluation Malnutrition Findings (Please click <Entered> for more info): Nutritional Asmnt/Malnutrition Start: 01/04/19 09: 50 Text: Status: Complete Freq: Protocol: Document 01/04/19 14:59 LCHENG (Rec: 01/04/19 15:06 LCHENG [email or web address]) Nutritional Asmnt/Malnutrition Patient General Information Nutritional Screening Moderate Risk Diagnosis psychosis Pertinent Medical Hx/Surgical Hx dementia, DJD, osteoporosis Subjective Information pt seen lying in bed, awake and alert, stated food has beed great. Pt is not a big eater. Encourage to eat balanced meals and pt agreed with it. Per EMR, PO intake 75 -100% Current Diet Order/ Nutrition Support regular Pertinent Medications reviewed Pertinent Labs 12/31 reviewed Nutritional Hx/Data Height 1.65 m Height (Calculated Centimeters) 165.1 Current Weight (lbs) 74.843 kg Weight (Calculated Kilograms) 74.8 Weight (Calculated Grams) 48382.7 [place] Body Weight 125 Body Mass Index (BMI) 27.4 Weight Status Overweight GI Symptoms GI Symptoms None Last BM 01/04 x 2 Difficult in: None Skin Integrity/Comment: intact Current %PO Good (75-100%) Estimated Nutritional Goals BEE in Kcals: Using Current wt Calories/Kcals/Kg 23-27 Kcals Calculated 4382-5741 Protein: Using Current wt Protein g/k.8 Protein Calculated 60 Fluid: ml 1725-1998ml (1ml/kcal) Nutritional Problem No current Nutrition Prob Problem N/A Malnutrition Alert Is there a minimum of two criteria No selected? Query Text:Check all the applicable criteria. A minimum of two criteria are recommended for diagnosis of either severe or non-severe malnutrition. Malnutrition Related to Morbid Obesity Malnutrition related to morbid obesity No Intervention/Recommendation Comments 1. Continue with regular diet as ordered. 2. Monitor PO intake, wt, labs and skin integrity 3. F/U as low risk in 7 days Expected Outcomes/Goals Expected Outcomes/Goals 1. PO intake to meet at least 75% of nutritional needs. 2. Wt stability, skin to remain intact, labs to approach WNL.
--- NOTE | 2019-06-27 00:57 | Progress Notes ---
DATE: 06/26/2019 SUBJECTIVE: Chart is reviewed and the patient is interviewed. Also discussed the patient's condition with the staff and reviewed records and labs. The patient is still pleasantly confused and is still calm and cooperative with her treatment. The patient also is interacting appropriately with peers and with others, but she is feeling still hopeless because of her long hospital stay. The patient has no place to live and patient case manager are still working on placement issue. Otherwise, the patient is compliant with taking her medications with no side effects of medications. ASSESSMENT: The patient is still gravely disabled. TREATMENT PLAN: We will monitor behavior and condition closely. Also, continue to work on her discharge plans and placement issue. JOB# [id number]
[2019-06-27] MEDS: Calcium Carb/Vit D 500 mg/200 U Tab PO SCH (09:10)
[2019-06-27] MEDS: Multivitamin w/ Minerals Tab PO SCH (09:10)
--- NOTE | 2019-06-27 12:26 | Internal Medicine Prog Note ---
Internal Medicine Subjective - Subjective Patient seen and examined:: with staff, chart reviewed Patient is:: awake, verbal, interactive, ambulating, confused Per staff patient has:: no adverse event, no episodes of fall, eating well, tolerating meds Internal Medicine Objective - Results Recent Labs: Laboratory Last Values POC Glucose 188 MG/DL (70 - 105) H 02/02/19 19:27 Triglycerides 162 mg/dL (<150) H 12/31/18 08:04 Cholesterol 234 mg/dL (<200) H 12/31/18 08:04 LDL Cholesterol Direct 155 mg/dL (75-193) 12/31/18 08:04 HDL Cholesterol 62 mg/dL (23-92) 12/31/18 08:04 - Physical Exam Vitals and I&O: Vital Signs Temp 97.9 F 06/27/19 06:16 Pulse 65 06/27/19 06:16 Resp 19 06/27/19 06:16 BP 121/72 06/27/19 06:16 Pulse Ox 98 06/27/19 06:16 Intake & Output 06/26/19 06/27/19 06/27/19 18:59 06:59 18:59 Intake Total 120 Balance 120 Intake: Oral 120 Other: # Voids 3 # Bowel Movements 0 Active Medications: Current Medications Acetaminophen (Tylenol) 650 mg PO Q4H PRN PRN Reason: Pain (Mild 1-3) Stop: 08/07/19 15:57 Last Admin: 06/08/19 16:13 Dose: 650 mg Alendronate Sodium (Fosamax) 70 mg PO QWED [facility] Stop: 07/01/19 07:29 Last Admin: 06/27/19 07:07 Dose: 70 mg Calcium/Vitamin D (Oscal W/Vitamin D) 1 tab PO DAILY [facility] Stop: 07/09/19 08:59 Last Admin: 06/27/19 09:10 Dose: 1 tab Donepezil HCl (Aricept) 10 mg PO HS [facility] Last Admin: 06/26/19 21:07 Dose: 10 mg General: demented, thin, appears younger HEENT: NC/AT, PERRLA, EOMI Neck: Supple, No JVD, No thyromegaly Lungs: CTAB Cardiovascular: RRR, Normal S1, Normal S2, with murmur Abdomen: soft, thin, non-distended, positive bowel sound Extremities: excoriation Neurological: no change Internal Medicine Assmt/Plan - Assessment Assessment: alzheimers dementa elevated chol djd osteoporosis ho old left hip fx - Plan Plan: fall precaution nutritional support cont on calcium supplemetn will cont to follow dw rn add mvi placement ongoing Nutritional Asmnt/Malnutr-PDOC - Dietary Evaluation Malnutrition Findings (Please click <Entered> for more info): Nutritional Asmnt/Malnutrition Start: 01/04/19 09: 50 Text: Status: Complete Freq: Protocol: Document 01/04/19 14:59 LCHENG (Rec: 01/04/19 15:06 LCHENG [email or web address]) Nutritional Asmnt/Malnutrition Patient General Information Nutritional Screening Moderate Risk Diagnosis psychosis Pertinent Medical Hx/Surgical Hx dementia, DJD, osteoporosis Subjective Information pt seen lying in bed, awake and alert, stated food has beed great. Pt is not a big eater. Encourage to eat balanced meals and pt agreed with it. Per EMR, PO intake 75 -100% Current Diet Order/ Nutrition Support regular Pertinent Medications reviewed Pertinent Labs 12/31 reviewed Nutritional Hx/Data Height 1.65 m Height (Calculated Centimeters) 165.1 Current Weight (lbs) 74.843 kg Weight (Calculated Kilograms) 74.8 Weight (Calculated Grams) 32107.7 [place] Body Weight 125 Body Mass Index (BMI) 27.4 Weight Status Overweight GI Symptoms GI Symptoms None Last BM 01/04 x 2 Difficult in: None Skin Integrity/Comment: intact Current %PO Good (75-100%) Estimated Nutritional Goals BEE in Kcals: Using Current wt Calories/Kcals/Kg 23-27 Kcals Calculated 5299-1007 Protein: Using Current wt Protein g/k.8 Protein Calculated 60 Fluid: ml 1725-1998ml (1ml/kcal) Nutritional Problem No current Nutrition Prob Problem N/A Malnutrition Alert Is there a minimum of two criteria No selected? Query Text:Check all the applicable criteria. A minimum of two criteria are recommended for diagnosis of either severe or non-severe malnutrition. Malnutrition Related to Morbid Obesity Malnutrition related to morbid obesity No Intervention/Recommendation Comments 1. Continue with regular diet as ordered. 2. Monitor PO intake, wt, labs and skin integrity 3. F/U as low risk in 7 days Expected Outcomes/Goals Expected Outcomes/Goals 1. PO intake to meet at least 75% of nutritional needs. 2. Wt stability, skin to remain intact, labs to approach WNL.
--- NOTE | 2019-06-28 01:50 | Progress Notes ---
DATE: 06/27/2019 PSYCHIATRIC PROGRESS NOTE SUBJECTIVE: Chart was reviewed and the patient was interviewed. Also, discussed the patient's condition with the staff and reviewed records and labs. The patient's affect is brighter. The patient is interacting appropriately. The patient denies any intention to harm herself or others and she is cooperative and compliant with taking her medications. She is still pleasantly confused and needs redirections, but less than before. Otherwise, the patient is waiting for placement. ASSESSMENT: The patient is still considered to be gravely disabled. TREATMENT PLAN: Continue monitoring behavior and continue waiting for placement and discharge plans. JOB# [id number]
[2019-06-28] MEDS: Multivitamin w/ Minerals Tab PO SCH (08:29)
[2019-06-28] MEDS: Calcium Carb/Vit D 500 mg/200 U Tab PO SCH (08:29)
--- NOTE | 2019-06-28 12:33 | Internal Medicine Prog Note ---
Internal Medicine Subjective - Subjective Patient seen and examined:: with staff, chart reviewed Patient is:: awake, verbal, interactive, ambulating, confused Per staff patient has:: no adverse event, no episodes of fall, eating well, tolerating meds Internal Medicine Objective - Results Recent Labs: Laboratory Last Values POC Glucose 188 MG/DL (70 - 105) H 02/02/19 19:27 Triglycerides 162 mg/dL (<150) H 12/31/18 08:04 Cholesterol 234 mg/dL (<200) H 12/31/18 08:04 LDL Cholesterol Direct 155 mg/dL (75-193) 12/31/18 08:04 HDL Cholesterol 62 mg/dL (23-92) 12/31/18 08:04 - Physical Exam Vitals and I&O: Vital Signs Temp 97.3 F 06/28/19 06:41 Pulse 75 06/28/19 06:41 Resp 18 06/28/19 06:41 BP 121/76 06/28/19 06:41 Pulse Ox 98 06/28/19 06:41 Intake & Output 06/27/19 06/28/19 06/28/19 18:59 06:59 18:59 Intake Total 1080 120 Balance 1080 120 Intake: Oral 840 120 Other 240 Other: # Voids 3 2 # Bowel Movements 1 0 Active Medications: Current Medications Acetaminophen (Tylenol) 650 mg PO Q4H PRN PRN Reason: Pain (Mild 1-3) Stop: 08/07/19 15:57 Last Admin: 06/08/19 16:13 Dose: 650 mg Alendronate Sodium (Fosamax) 70 mg PO QWED [facility] Stop: 07/01/19 07:29 Last Admin: 06/27/19 07:07 Dose: 70 mg Calcium/Vitamin D (Oscal W/Vitamin D) 1 tab PO DAILY [facility] Stop: 07/09/19 08:59 Last Admin: 06/28/19 08:29 Dose: 1 tab Donepezil HCl (Aricept) 10 mg PO HS [facility] Last Admin: 06/27/19 20:22 Dose: 10 mg General: demented, thin, appears younger HEENT: NC/AT, PERRLA, EOMI Neck: Supple, No JVD, No thyromegaly Lungs: CTAB Cardiovascular: RRR, Normal S1, Normal S2, with murmur Abdomen: soft, thin, non-distended, positive bowel sound Extremities: excoriation Neurological: no change Internal Medicine Assmt/Plan - Assessment Assessment: alzheimers dementa elevated chol djd osteoporosis ho old left hip fx - Plan Plan: fall precaution nutritional support cont on calcium supplemetn will cont to follow dw rn add mvi placement ongoing Nutritional Asmnt/Malnutr-PDOC - Dietary Evaluation Malnutrition Findings (Please click <Entered> for more info): Nutritional Asmnt/Malnutrition Start: 01/04/19 09: 50 Text: Status: Complete Freq: Protocol: Document 01/04/19 14:59 LCHENG (Rec: 01/04/19 15:06 LCHENG [email or web address]) Nutritional Asmnt/Malnutrition Patient General Information Nutritional Screening Moderate Risk Diagnosis psychosis Pertinent Medical Hx/Surgical Hx dementia, DJD, osteoporosis Subjective Information pt seen lying in bed, awake and alert, stated food has beed great. Pt is not a big eater. Encourage to eat balanced meals and pt agreed with it. Per EMR, PO intake 75 -100% Current Diet Order/ Nutrition Support regular Pertinent Medications reviewed Pertinent Labs 12/31 reviewed Nutritional Hx/Data Height 1.65 m Height (Calculated Centimeters) 165.1 Current Weight (lbs) 74.843 kg Weight (Calculated Kilograms) 74.8 Weight (Calculated Grams) 05069.7 [place] Body Weight 125 Body Mass Index (BMI) 27.4 Weight Status Overweight GI Symptoms GI Symptoms None Last BM 01/04 x 2 Difficult in: None Skin Integrity/Comment: intact Current %PO Good (75-100%) Estimated Nutritional Goals BEE in Kcals: Using Current wt Calories/Kcals/Kg 23-27 Kcals Calculated 4048-8463 Protein: Using Current wt Protein g/k.8 Protein Calculated 60 Fluid: ml 1725-1998ml (1ml/kcal) Nutritional Problem No current Nutrition Prob Problem N/A Malnutrition Alert Is there a minimum of two criteria No selected? Query Text:Check all the applicable criteria. A minimum of two criteria are recommended for diagnosis of either severe or non-severe malnutrition. Malnutrition Related to Morbid Obesity Malnutrition related to morbid obesity No Intervention/Recommendation Comments 1. Continue with regular diet as ordered. 2. Monitor PO intake, wt, labs and skin integrity 3. F/U as low risk in 7 days Expected Outcomes/Goals Expected Outcomes/Goals 1. PO intake to meet at least 75% of nutritional needs. 2. Wt stability, skin to remain intact, labs to approach WNL.
--- NOTE | 2019-06-28 19:09 | Progress Notes ---
DATE: 06/28/2019 SUBJECTIVE: Chart was reviewed and the patient interviewed. Also discussed the patient's condition with the staff and reviewed records and labs. The patient is still pleasantly confused and is still anxious. The patient also is still waiting for placement issue. According to staff, the patient conservatorship is now back and "waiting to change conservator". It is not clear to me what exactly reasons for that, but it seems that still has problems with changes. Otherwise, the patient is still having mood swings. ASSESSMENT: The patient is still considered to be a gravely disabled. TREATMENT PLAN: Continue to monitor behavior and continue to work on her discharge plans and placement issue. JOB# [id number]
[2019-06-29] MEDS: Multivitamin w/ Minerals Tab PO SCH (08:44)
[2019-06-29] MEDS: Calcium Carb/Vit D 500 mg/200 U Tab PO SCH (08:44)
--- NOTE | 2019-06-29 12:34 | Internal Medicine Prog Note ---
Internal Medicine Subjective - Subjective Patient seen and examined:: with staff, chart reviewed Patient is:: awake, verbal, interactive, ambulating, confused Per staff patient has:: no adverse event, no episodes of fall, eating well, tolerating meds Internal Medicine Objective - Results Recent Labs: Laboratory Last Values POC Glucose 188 MG/DL (70 - 105) H 02/02/19 19:27 Triglycerides 162 mg/dL (<150) H 12/31/18 08:04 Cholesterol 234 mg/dL (<200) H 12/31/18 08:04 LDL Cholesterol Direct 155 mg/dL (75-193) 12/31/18 08:04 HDL Cholesterol 62 mg/dL (23-92) 12/31/18 08:04 - Physical Exam Vitals and I&O: Vital Signs Temp 97.4 F 06/29/19 05:48 Pulse 81 06/29/19 05:48 Resp 18 06/29/19 05:48 BP 122/73 06/29/19 05:48 Pulse Ox 98 06/29/19 05:48 Intake & Output 06/28/19 06/29/19 06/29/19 18:59 06:59 18:59 Intake Total 1000 240 Balance 1000 240 Intake: Oral 1000 240 Other: # Voids 4 2 # Bowel Movements 1 0 Active Medications: Current Medications Acetaminophen (Tylenol) 650 mg PO Q4H PRN PRN Reason: Pain (Mild 1-3) Stop: 08/07/19 15:57 Last Admin: 06/08/19 16:13 Dose: 650 mg Alendronate Sodium (Fosamax) 70 mg PO QWED [facility] Stop: 07/01/19 07:29 Last Admin: 06/27/19 07:07 Dose: 70 mg Calcium/Vitamin D (Oscal W/Vitamin D) 1 tab PO DAILY [facility] Stop: 07/09/19 08:59 Last Admin: 06/29/19 08:44 Dose: 1 tab Donepezil HCl (Aricept) 10 mg PO HS [facility] Last Admin: 06/28/19 21:21 Dose: 10 mg General: demented, thin, appears younger HEENT: NC/AT, PERRLA, EOMI Neck: Supple, No JVD, No thyromegaly Lungs: CTAB Cardiovascular: RRR, Normal S1, Normal S2, with murmur Abdomen: soft, thin, non-distended, positive bowel sound Extremities: excoriation Neurological: no change Internal Medicine Assmt/Plan - Assessment Assessment: alzheimers dementa elevated chol djd osteoporosis ho old left hip fx - Plan Plan: fall precaution nutritional support cont on calcium supplemetn will cont to follow dw rn add mvi placement ongoing Nutritional Asmnt/Malnutr-PDOC - Dietary Evaluation Malnutrition Findings (Please click <Entered> for more info): Nutritional Asmnt/Malnutrition Start: 01/04/19 09: 50 Text: Status: Complete Freq: Protocol: Document 01/04/19 14:59 LCHENG (Rec: 01/04/19 15:06 LCHENG [email or web address]) Nutritional Asmnt/Malnutrition Patient General Information Nutritional Screening Moderate Risk Diagnosis psychosis Pertinent Medical Hx/Surgical Hx dementia, DJD, osteoporosis Subjective Information pt seen lying in bed, awake and alert, stated food has beed great. Pt is not a big eater. Encourage to eat balanced meals and pt agreed with it. Per EMR, PO intake 75 -100% Current Diet Order/ Nutrition Support regular Pertinent Medications reviewed Pertinent Labs 12/31 reviewed Nutritional Hx/Data Height 1.65 m Height (Calculated Centimeters) 165.1 Current Weight (lbs) 74.843 kg Weight (Calculated Kilograms) 74.8 Weight (Calculated Grams) 08365.7 [place] Body Weight 125 Body Mass Index (BMI) 27.4 Weight Status Overweight GI Symptoms GI Symptoms None Last BM 01/04 x 2 Difficult in: None Skin Integrity/Comment: intact Current %PO Good (75-100%) Estimated Nutritional Goals BEE in Kcals: Using Current wt Calories/Kcals/Kg 23-27 Kcals Calculated 5485-9750 Protein: Using Current wt Protein g/k.8 Protein Calculated 60 Fluid: ml 1725-1998ml (1ml/kcal) Nutritional Problem No current Nutrition Prob Problem N/A Malnutrition Alert Is there a minimum of two criteria No selected? Query Text:Check all the applicable criteria. A minimum of two criteria are recommended for diagnosis of either severe or non-severe malnutrition. Malnutrition Related to Morbid Obesity Malnutrition related to morbid obesity No Intervention/Recommendation Comments 1. Continue with regular diet as ordered. 2. Monitor PO intake, wt, labs and skin integrity 3. F/U as low risk in 7 days Expected Outcomes/Goals Expected Outcomes/Goals 1. PO intake to meet at least 75% of nutritional needs. 2. Wt stability, skin to remain intact, labs to approach WNL.
[2019-06-30] MEDS: Multivitamin w/ Minerals Tab PO SCH (08:25)
[2019-06-30] MEDS: Calcium Carb/Vit D 500 mg/200 U Tab PO SCH (08:25)
--- NOTE | 2019-06-30 10:18 | Progress Notes ---
DATE: 06/29/2019 PSYCHIATRIC PROGRESS NOTE SUBJECTIVE: Chart was reviewed and the patient interviewed. Also discussed the patient's condition with the staff and reviewed records and labs. The patient continued to be extremely anxious and she is still withdrawn. The patient also is still wandering around in a confused state. On the other hand, no behavioral problems. The patient continued to comply with taking her medications with no side effects. ASSESSMENT: The patient is still considered to be gravely disabled. TREATMENT PLAN: Continue to monitor behavior and condition closely. Also, we will continue to work on ineffective coping and her depression. JOB# [id number]
--- NOTE | 2019-06-30 11:14 | Internal Medicine Prog Note ---
Internal Medicine Subjective - Subjective Patient seen and examined:: with staff, chart reviewed Patient is:: awake, verbal, interactive, ambulating, confused Per staff patient has:: no adverse event, no episodes of fall, eating well, tolerating meds Internal Medicine Objective - Results Recent Labs: Laboratory Last Values POC Glucose 188 MG/DL (70 - 105) H 02/02/19 19:27 Triglycerides 162 mg/dL (<150) H 12/31/18 08:04 Cholesterol 234 mg/dL (<200) H 12/31/18 08:04 LDL Cholesterol Direct 155 mg/dL (75-193) 12/31/18 08:04 HDL Cholesterol 62 mg/dL (23-92) 12/31/18 08:04 - Physical Exam Vitals and I&O: Vital Signs Temp 97.9 F 06/29/19 19:52 Pulse 82 06/29/19 19:52 Resp 19 06/29/19 19:52 BP 90/68 06/29/19 19:52 Pulse Ox 98 06/29/19 19:52 Intake & Output 06/29/19 06/30/19 06/30/19 18:59 06:59 18:59 Intake Total 1300 240 Balance 1300 240 Intake: Oral 1300 240 Other: # Voids 3 1 # Bowel Movements 0 Active Medications: Current Medications Acetaminophen (Tylenol) 650 mg PO Q4H PRN PRN Reason: Pain (Mild 1-3) Stop: 08/07/19 15:57 Last Admin: 06/08/19 16:13 Dose: 650 mg Alendronate Sodium (Fosamax) 70 mg PO QWED [facility] Stop: 07/01/19 07:29 Last Admin: 06/27/19 07:07 Dose: 70 mg Calcium/Vitamin D (Oscal W/Vitamin D) 1 tab PO DAILY [facility] Stop: 07/09/19 08:59 Last Admin: 06/30/19 08:25 Dose: 1 tab Donepezil HCl (Aricept) 10 mg PO HS [facility] Last Admin: 06/29/19 20:24 Dose: 10 mg General: demented, thin, appears younger HEENT: NC/AT, PERRLA, EOMI Neck: Supple, No JVD, No thyromegaly Lungs: CTAB Cardiovascular: RRR, Normal S1, Normal S2, with murmur Abdomen: soft, thin, non-distended, positive bowel sound Extremities: excoriation Neurological: no change Internal Medicine Assmt/Plan - Assessment Assessment: alzheimers dementa elevated chol djd osteoporosis ho old left hip fx - Plan Plan: fall precaution nutritional support cont on calcium supplemetn will cont to follow dw rn add mvi placement ongoing Nutritional Asmnt/Malnutr-PDOC - Dietary Evaluation Malnutrition Findings (Please click <Entered> for more info): Nutritional Asmnt/Malnutrition Start: 01/04/19 09: 50 Text: Status: Complete Freq: Protocol: Document 01/04/19 14:59 LCHENG (Rec: 01/04/19 15:06 LCHENG [email or web address]) Nutritional Asmnt/Malnutrition Patient General Information Nutritional Screening Moderate Risk Diagnosis psychosis Pertinent Medical Hx/Surgical Hx dementia, DJD, osteoporosis Subjective Information pt seen lying in bed, awake and alert, stated food has beed great. Pt is not a big eater. Encourage to eat balanced meals and pt agreed with it. Per EMR, PO intake 75 -100% Current Diet Order/ Nutrition Support regular Pertinent Medications reviewed Pertinent Labs 12/31 reviewed Nutritional Hx/Data Height 1.65 m Height (Calculated Centimeters) 165.1 Current Weight (lbs) 74.843 kg Weight (Calculated Kilograms) 74.8 Weight (Calculated Grams) 78313.7 [place] Body Weight 125 Body Mass Index (BMI) 27.4 Weight Status Overweight GI Symptoms GI Symptoms None Last BM 01/04 x 2 Difficult in: None Skin Integrity/Comment: intact Current %PO Good (75-100%) Estimated Nutritional Goals BEE in Kcals: Using Current wt Calories/Kcals/Kg 23-27 Kcals Calculated 6978-3451 Protein: Using Current wt Protein g/k.8 Protein Calculated 60 Fluid: ml 1725-1998ml (1ml/kcal) Nutritional Problem No current Nutrition Prob Problem N/A Malnutrition Alert Is there a minimum of two criteria No selected? Query Text:Check all the applicable criteria. A minimum of two criteria are recommended for diagnosis of either severe or non-severe malnutrition. Malnutrition Related to Morbid Obesity Malnutrition related to morbid obesity No Intervention/Recommendation Comments 1. Continue with regular diet as ordered. 2. Monitor PO intake, wt, labs and skin integrity 3. F/U as low risk in 7 days Expected Outcomes/Goals Expected Outcomes/Goals 1. PO intake to meet at least 75% of nutritional needs. 2. Wt stability, skin to remain intact, labs to approach WNL.
[2019-07-01] MEDS: Multivitamin w/ Minerals Tab PO SCH (08:35)
[2019-07-01] MEDS: Calcium Carb/Vit D 500 mg/200 U Tab PO SCH (08:35)
--- NOTE | 2019-07-01 08:39 | Progress Notes ---
DATE: 06/30/2019 PSYCHIATRIC FOLLOWUP NOTE SUBJECTIVE: The patient was seen and evaluated. The patient's chart reviewed. Covering for Dr. Mason. No acute events overnight. Fairly anxious, withdrawn. Still wandering around the unit. ASSESSMENT AND PLAN: Gravely disabled, secondary to the patient's comorbid medical illness and history of severe depression, dementia. Awaiting placement. JOB# [id number]
--- NOTE | 2019-07-01 15:53 | Internal Medicine Prog Note ---
Internal Medicine Subjective - Subjective Patient seen and examined:: with staff, chart reviewed Patient is:: awake, verbal, interactive, ambulating, confused Per staff patient has:: no adverse event, no episodes of fall, eating well, tolerating meds Internal Medicine Objective - Results Recent Labs: Laboratory Last Values POC Glucose 188 MG/DL (70 - 105) H 02/02/19 19:27 Triglycerides 162 mg/dL (<150) H 12/31/18 08:04 Cholesterol 234 mg/dL (<200) H 12/31/18 08:04 LDL Cholesterol Direct 155 mg/dL (75-193) 12/31/18 08:04 HDL Cholesterol 62 mg/dL (23-92) 12/31/18 08:04 - Physical Exam Vitals and I&O: Vital Signs Temp 97.9 F 07/01/19 15:09 Pulse 77 07/01/19 15:09 Resp 18 07/01/19 15:09 BP 116/66 07/01/19 15:09 Pulse Ox 98 07/01/19 15:09 Intake & Output 06/30/19 07/01/19 07/01/19 19:59 06:59 18:59 Intake Total Balance Intake: Oral Other: # Voids # Bowel Movements Stool Characteristics Soft Formed Brown Active Medications: Current Medications Acetaminophen (Tylenol) 650 mg PO Q4H PRN PRN Reason: Pain (Mild 1-3) Stop: 08/07/19 15:57 Last Admin: 06/08/19 16:13 Dose: 650 mg Alendronate Sodium (Fosamax) 70 mg PO We@0630 [facility] Stop: 09/02/19 06:29 Calcium/Vitamin D (Oscal W/Vitamin D) 1 tab PO DAILY [facility] Stop: 07/09/19 08:59 Last Admin: 07/01/19 08:35 Dose: 1 tab Donepezil HCl (Aricept) 10 mg PO HS [facility] Last Admin: 06/30/19 21:32 Dose: 10 mg General: demented, thin, appears younger HEENT: NC/AT, PERRLA, EOMI Neck: Supple, No JVD, No thyromegaly Lungs: CTAB Cardiovascular: RRR, Normal S1, Normal S2, with murmur Abdomen: soft, thin, non-distended, positive bowel sound Extremities: excoriation Neurological: no change Internal Medicine Assmt/Plan - Assessment Assessment: alzheimers dementa elevated chol djd osteoporosis ho old left hip fx - Plan Plan: fall precaution nutritional support cont on calcium supplemetn - resume fosamax will cont to follow dw rn add mvi placement ongoing Nutritional Asmnt/Malnutr-PDOC - Dietary Evaluation Malnutrition Findings (Please click <Entered> for more info): Nutritional Asmnt/Malnutrition Start: 01/04/19 09: 50 Text: Status: Complete Freq: Protocol: Document 01/04/19 14:59 LCHENG (Rec: 01/04/19 15:06 LCHENG [email or web address]) Nutritional Asmnt/Malnutrition Patient General Information Nutritional Screening Moderate Risk Diagnosis psychosis Pertinent Medical Hx/Surgical Hx dementia, DJD, osteoporosis Subjective Information pt seen lying in bed, awake and alert, stated food has beed great. Pt is not a big eater. Encourage to eat balanced meals and pt agreed with it. Per EMR, PO intake 75 -100% Current Diet Order/ Nutrition Support regular Pertinent Medications reviewed Pertinent Labs 12/31 reviewed Nutritional Hx/Data Height 1.65 m Height (Calculated Centimeters) 165.1 Current Weight (lbs) 74.843 kg Weight (Calculated Kilograms) 74.8 Weight (Calculated Grams) 31360.7 [place] Body Weight 125 Body Mass Index (BMI) 27.4 Weight Status Overweight GI Symptoms GI Symptoms None Last BM 01/04 x 2 Difficult in: None Skin Integrity/Comment: intact Current %PO Good (75-100%) Estimated Nutritional Goals BEE in Kcals: Using Current wt Calories/Kcals/Kg 23-27 Kcals Calculated 9716-1542 Protein: Using Current wt Protein g/k.8 Protein Calculated 60 Fluid: ml 1725-1998ml (1ml/kcal) Nutritional Problem No current Nutrition Prob Problem N/A Malnutrition Alert Is there a minimum of two criteria No selected? Query Text:Check all the applicable criteria. A minimum of two criteria are recommended for diagnosis of either severe or non-severe malnutrition. Malnutrition Related to Morbid Obesity Malnutrition related to morbid obesity No Intervention/Recommendation Comments 1. Continue with regular diet as ordered. 2. Monitor PO intake, wt, labs and skin integrity 3. F/U as low risk in 7 days Expected Outcomes/Goals Expected Outcomes/Goals 1. PO intake to meet at least 75% of nutritional needs. 2. Wt stability, skin to remain intact, labs to approach WNL.
--- NOTE | 2019-07-01 18:54 | Progress Notes ---
DATE: 07/01/2019 SUBJECTIVE: The patient was seen and evaluated. The patient's chart reviewed. No acute events overnight. No side effects endorsed by the patient today. No complication. MENTAL STATUS EXAMINATION: Stable from last visit. ASSESSMENT AND PLAN: Severe dementia, awaiting placement. JOB# [id number]
[2019-07-02] MEDS: Multivitamin w/ Minerals Tab PO SCH (08:59)
[2019-07-02] MEDS: Calcium Carb/Vit D 500 mg/200 U Tab PO SCH (08:59)
--- NOTE | 2019-07-02 12:21 | Internal Medicine Prog Note ---
Internal Medicine Subjective - Subjective Patient seen and examined:: with staff, chart reviewed Patient is:: awake, verbal, interactive, ambulating, confused Per staff patient has:: no adverse event, no episodes of fall, eating well, tolerating meds Internal Medicine Objective - Results Recent Labs: Laboratory Last Values POC Glucose 188 MG/DL (70 - 105) H 02/02/19 19:27 Triglycerides 162 mg/dL (<150) H 12/31/18 08:04 Cholesterol 234 mg/dL (<200) H 12/31/18 08:04 LDL Cholesterol Direct 155 mg/dL (75-193) 12/31/18 08:04 HDL Cholesterol 62 mg/dL (23-92) 12/31/18 08:04 - Physical Exam Vitals and I&O: Vital Signs Temp 97.6 F 07/02/19 06:21 Pulse 82 07/02/19 06:21 Resp 19 07/02/19 06:21 BP 114/78 07/02/19 06:21 Pulse Ox 99 07/02/19 06:21 Intake & Output 07/01/19 07/02/19 07/02/19 18:59 06:59 18:59 Intake Total 120 Balance 120 Intake: Oral 120 Other: # Voids 3 Stool Characteristics Soft Formed Brown Active Medications: Current Medications Acetaminophen (Tylenol) 650 mg PO Q4H PRN PRN Reason: Pain (Mild 1-3) Stop: 08/07/19 15:57 Last Admin: 06/08/19 16:13 Dose: 650 mg Alendronate Sodium (Fosamax) 70 mg PO We@0630 [facility] Stop: 09/02/19 06:29 Calcium/Vitamin D (Oscal W/Vitamin D) 1 tab PO DAILY [facility] Stop: 07/09/19 08:59 Last Admin: 07/02/19 08:59 Dose: 1 tab Donepezil HCl (Aricept) 10 mg PO HS [facility] Last Admin: 07/01/19 20:18 Dose: 10 mg General: demented, thin, appears younger HEENT: NC/AT, PERRLA, EOMI Neck: Supple, No JVD, No thyromegaly Lungs: CTAB Cardiovascular: RRR, Normal S1, Normal S2, with murmur Abdomen: soft, thin, non-distended, positive bowel sound Extremities: excoriation Neurological: no change Internal Medicine Assmt/Plan - Assessment Assessment: alzheimers dementa elevated chol djd osteoporosis ho old left hip fx - Plan Plan: fall precaution nutritional support cont on calcium supplemetn - resume fosamax will cont to follow dw rn add mvi placement ongoing Nutritional Asmnt/Malnutr-PDOC - Dietary Evaluation Malnutrition Findings (Please click <Entered> for more info): Nutritional Asmnt/Malnutrition Start: 01/04/19 09: 50 Text: Status: Complete Freq: Protocol: Document 01/04/19 14:59 LCHENG (Rec: 01/04/19 15:06 LCHENG [email or web address]) Nutritional Asmnt/Malnutrition Patient General Information Nutritional Screening Moderate Risk Diagnosis psychosis Pertinent Medical Hx/Surgical Hx dementia, DJD, osteoporosis Subjective Information pt seen lying in bed, awake and alert, stated food has beed great. Pt is not a big eater. Encourage to eat balanced meals and pt agreed with it. Per EMR, PO intake 75 -100% Current Diet Order/ Nutrition Support regular Pertinent Medications reviewed Pertinent Labs 12/31 reviewed Nutritional Hx/Data Height 1.65 m Height (Calculated Centimeters) 165.1 Current Weight (lbs) 74.843 kg Weight (Calculated Kilograms) 74.8 Weight (Calculated Grams) 24435.7 [place] Body Weight 125 Body Mass Index (BMI) 27.4 Weight Status Overweight GI Symptoms GI Symptoms None Last BM 01/04 x 2 Difficult in: None Skin Integrity/Comment: intact Current %PO Good (75-100%) Estimated Nutritional Goals BEE in Kcals: Using Current wt Calories/Kcals/Kg 23-27 Kcals Calculated 7211-1637 Protein: Using Current wt Protein g/k.8 Protein Calculated 60 Fluid: ml 1725-1998ml (1ml/kcal) Nutritional Problem No current Nutrition Prob Problem N/A Malnutrition Alert Is there a minimum of two criteria No selected? Query Text:Check all the applicable criteria. A minimum of two criteria are recommended for diagnosis of either severe or non-severe malnutrition. Malnutrition Related to Morbid Obesity Malnutrition related to morbid obesity No Intervention/Recommendation Comments 1. Continue with regular diet as ordered. 2. Monitor PO intake, wt, labs and skin integrity 3. F/U as low risk in 7 days Expected Outcomes/Goals Expected Outcomes/Goals 1. PO intake to meet at least 75% of nutritional needs. 2. Wt stability, skin to remain intact, labs to approach WNL.
--- NOTE | 2019-07-03 07:23 | Progress Notes ---
DATE: 07/02/2019 SUBJECTIVE: Chart was reviewed and the patient interviewed. Also, discussed the patient's condition with the staff and reviewed records and labs. The patient continued to show improvement and her affect is brighter. The patient also is interacting appropriately with others. The patient also is still unable to come up with any safe plan for self-care. Otherwise, the patient is compliant with taking her medications with no side effects. ASSESSMENT: The patient is still waiting for placement. [facility]# [id number]
[2019-07-03] MEDS: Multivitamin w/ Minerals Tab PO SCH (08:26)
[2019-07-03] MEDS: Calcium Carb/Vit D 500 mg/200 U Tab PO SCH (08:26)
--- NOTE | 2019-07-03 12:34 | Internal Medicine Prog Note ---
Internal Medicine Subjective - Subjective Patient seen and examined:: with staff, chart reviewed Patient is:: awake, verbal, interactive, ambulating, confused Per staff patient has:: no adverse event, no episodes of fall, eating well, tolerating meds Internal Medicine Objective - Results Recent Labs: Laboratory Last Values POC Glucose 188 MG/DL (70 - 105) H 02/02/19 19:27 Triglycerides 162 mg/dL (<150) H 12/31/18 08:04 Cholesterol 234 mg/dL (<200) H 12/31/18 08:04 LDL Cholesterol Direct 155 mg/dL (75-193) 12/31/18 08:04 HDL Cholesterol 62 mg/dL (23-92) 12/31/18 08:04 - Physical Exam Vitals and I&O: Vital Signs Temp 97.5 F 07/03/19 06:12 Pulse 77 07/03/19 06:12 Resp 20 07/03/19 07:11 BP 116/73 07/03/19 06:12 Pulse Ox 98 07/03/19 06:12 Intake & Output 07/02/19 07/03/19 07/03/19 18:59 06:59 18:59 Intake Total 950 240 Balance 950 240 Intake: Oral 950 240 Other: # Voids 3 2 # Bowel Movements 1 Active Medications: Current Medications Acetaminophen (Tylenol) 650 mg PO Q4H PRN PRN Reason: Pain (Mild 1-3) Stop: 08/07/19 15:57 Last Admin: 06/08/19 16:13 Dose: 650 mg Alendronate Sodium (Fosamax) 70 mg PO We@0630 [facility] Stop: 09/02/19 06:29 Calcium/Vitamin D (Oscal W/Vitamin D) 1 tab PO DAILY [facility] Stop: 07/09/19 08:59 Last Admin: 07/03/19 08:26 Dose: 1 tab Donepezil HCl (Aricept) 10 mg PO HS [facility] Last Admin: 07/02/19 20:56 Dose: 10 mg General: demented, thin, appears younger HEENT: NC/AT, PERRLA, EOMI Neck: Supple, No JVD, No thyromegaly Lungs: CTAB Cardiovascular: RRR, Normal S1, Normal S2, with murmur Abdomen: soft, thin, non-distended, positive bowel sound Extremities: excoriation Neurological: no change Internal Medicine Assmt/Plan - Assessment Assessment: alzheimers dementa elevated chol djd osteoporosis ho old left hip fx - Plan Plan: fall precaution nutritional support cont on calcium supplemetn - resume fosamax will cont to follow dw rn add mvi placement ongoing Nutritional Asmnt/Malnutr-PDOC - Dietary Evaluation Malnutrition Findings (Please click <Entered> for more info): Nutritional Asmnt/Malnutrition Start: 01/04/19 09: 50 Text: Status: Complete Freq: Protocol: Document 01/04/19 14:59 LCHENG (Rec: 01/04/19 15:06 LCHENG [email or web address]) Nutritional Asmnt/Malnutrition Patient General Information Nutritional Screening Moderate Risk Diagnosis psychosis Pertinent Medical Hx/Surgical Hx dementia, DJD, osteoporosis Subjective Information pt seen lying in bed, awake and alert, stated food has beed great. Pt is not a big eater. Encourage to eat balanced meals and pt agreed with it. Per EMR, PO intake 75 -100% Current Diet Order/ Nutrition Support regular Pertinent Medications reviewed Pertinent Labs 12/31 reviewed Nutritional Hx/Data Height 1.65 m Height (Calculated Centimeters) 165.1 Current Weight (lbs) 74.843 kg Weight (Calculated Kilograms) 74.8 Weight (Calculated Grams) 06714.7 [place] Body Weight 125 Body Mass Index (BMI) 27.4 Weight Status Overweight GI Symptoms GI Symptoms None Last BM 01/04 x 2 Difficult in: None Skin Integrity/Comment: intact Current %PO Good (75-100%) Estimated Nutritional Goals BEE in Kcals: Using Current wt Calories/Kcals/Kg 23-27 Kcals Calculated 8880-3806 Protein: Using Current wt Protein g/k.8 Protein Calculated 60 Fluid: ml 1725-1998ml (1ml/kcal) Nutritional Problem No current Nutrition Prob Problem N/A Malnutrition Alert Is there a minimum of two criteria No selected? Query Text:Check all the applicable criteria. A minimum of two criteria are recommended for diagnosis of either severe or non-severe malnutrition. Malnutrition Related to Morbid Obesity Malnutrition related to morbid obesity No Intervention/Recommendation Comments 1. Continue with regular diet as ordered. 2. Monitor PO intake, wt, labs and skin integrity 3. F/U as low risk in 7 days Expected Outcomes/Goals Expected Outcomes/Goals 1. PO intake to meet at least 75% of nutritional needs. 2. Wt stability, skin to remain intact, labs to approach WNL.
--- NOTE | 2019-07-04 00:06 | Progress Notes ---
DATE: 07/03/2019 SUBJECTIVE: Chart was reviewed and the patient interviewed. Also discussed the patient's condition with the staff and reviewed records and labs. The patient is still anxious about her discharge and about where she is going to go. She also continued to be pacing up and down the unit aimlessly about at the same time, she seems to be frustrated with her long hospital stay. The patient also has mood swings. Otherwise, the patient is compliant with taking her medications and no behavioral problems. ASSESSMENT: The patient is still considered to be gravely disabled and waiting for placement. TREATMENT PLAN: Continue monitoring behavior and continue adjusting psychotropic medications, but mainly working on her placement issue. JOB# [id number]
[2019-07-04] MEDS: Multivitamin w/ Minerals Tab PO SCH (08:33)
[2019-07-04] MEDS: Calcium Carb/Vit D 500 mg/200 U Tab PO SCH (08:33)
--- NOTE | 2019-07-04 12:24 | Internal Medicine Prog Note ---
Internal Medicine Subjective - Subjective Patient seen and examined:: with staff, chart reviewed Patient is:: awake, verbal, interactive, ambulating, confused Per staff patient has:: no adverse event, no episodes of fall, eating well, tolerating meds Internal Medicine Objective - Results Recent Labs: Laboratory Last Values POC Glucose 188 MG/DL (70 - 105) H 02/02/19 19:27 Triglycerides 162 mg/dL (<150) H 12/31/18 08:04 Cholesterol 234 mg/dL (<200) H 12/31/18 08:04 LDL Cholesterol Direct 155 mg/dL (75-193) 12/31/18 08:04 HDL Cholesterol 62 mg/dL (23-92) 12/31/18 08:04 - Physical Exam Vitals and I&O: Vital Signs Temp 97.0 F 07/04/19 05:57 Pulse 74 07/04/19 05:57 Resp 20 07/04/19 05:57 BP 111/69 07/04/19 05:57 Pulse Ox 97 07/04/19 05:57 Intake & Output 07/03/19 07/04/19 07/04/19 18:59 06:59 18:59 Intake Total 1320 180 Balance 1320 180 Intake: Oral 1080 180 Other 240 Other: # Voids 3 1 # Bowel Movements 0 0 Active Medications: Current Medications Acetaminophen (Tylenol) 650 mg PO Q4H PRN PRN Reason: Pain (Mild 1-3) Stop: 08/07/19 15:57 Last Admin: 06/08/19 16:13 Dose: 650 mg Alendronate Sodium (Fosamax) 70 mg PO We@0630 [facility] Stop: 09/02/19 06:29 Last Admin: 07/04/19 06:42 Dose: 70 mg Calcium/Vitamin D (Oscal W/Vitamin D) 1 tab PO DAILY [facility] Stop: 07/09/19 08:59 Last Admin: 07/04/19 08:33 Dose: 1 tab Donepezil HCl (Aricept) 10 mg PO HS [facility] Last Admin: 07/03/19 20:52 Dose: 10 mg General: demented, thin, appears younger HEENT: NC/AT, PERRLA, EOMI Neck: Supple, No JVD, No thyromegaly Lungs: CTAB Cardiovascular: RRR, Normal S1, Normal S2, with murmur Abdomen: soft, thin, non-distended, positive bowel sound Extremities: excoriation Neurological: no change Internal Medicine Assmt/Plan - Assessment Assessment: alzheimers dementa elevated chol djd osteoporosis ho old left hip fx - Plan Plan: fall precaution nutritional support cont on calcium supplemetn - resume fosamax will cont to follow dw rn add mvi placement ongoing Nutritional Asmnt/Malnutr-PDOC - Dietary Evaluation Malnutrition Findings (Please click <Entered> for more info): Nutritional Asmnt/Malnutrition Start: 01/04/19 09: 50 Text: Status: Complete Freq: Protocol: Document 01/04/19 14:59 LCHENG (Rec: 01/04/19 15:06 LCHENG [email or web address]) Nutritional Asmnt/Malnutrition Patient General Information Nutritional Screening Moderate Risk Diagnosis psychosis Pertinent Medical Hx/Surgical Hx dementia, DJD, osteoporosis Subjective Information pt seen lying in bed, awake and alert, stated food has beed great. Pt is not a big eater. Encourage to eat balanced meals and pt agreed with it. Per EMR, PO intake 75 -100% Current Diet Order/ Nutrition Support regular Pertinent Medications reviewed Pertinent Labs 12/31 reviewed Nutritional Hx/Data Height 1.65 m Height (Calculated Centimeters) 165.1 Current Weight (lbs) 74.843 kg Weight (Calculated Kilograms) 74.8 Weight (Calculated Grams) 77094.7 [place] Body Weight 125 Body Mass Index (BMI) 27.4 Weight Status Overweight GI Symptoms GI Symptoms None Last BM 01/04 x 2 Difficult in: None Skin Integrity/Comment: intact Current %PO Good (75-100%) Estimated Nutritional Goals BEE in Kcals: Using Current wt Calories/Kcals/Kg 23-27 Kcals Calculated 2439-8011 Protein: Using Current wt Protein g/k.8 Protein Calculated 60 Fluid: ml 1725-1998ml (1ml/kcal) Nutritional Problem No current Nutrition Prob Problem N/A Malnutrition Alert Is there a minimum of two criteria No selected? Query Text:Check all the applicable criteria. A minimum of two criteria are recommended for diagnosis of either severe or non-severe malnutrition. Malnutrition Related to Morbid Obesity Malnutrition related to morbid obesity No Intervention/Recommendation Comments 1. Continue with regular diet as ordered. 2. Monitor PO intake, wt, labs and skin integrity 3. F/U as low risk in 7 days Expected Outcomes/Goals Expected Outcomes/Goals 1. PO intake to meet at least 75% of nutritional needs. 2. Wt stability, skin to remain intact, labs to approach WNL.
[2019-07-05] MEDS: Calcium Carb/Vit D 500 mg/200 U Tab PO SCH (08:30)
[2019-07-05] MEDS: Multivitamin w/ Minerals Tab PO SCH (08:30)
--- NOTE | 2019-07-05 12:38 | Internal Medicine Prog Note ---
Internal Medicine Subjective - Subjective Patient seen and examined:: with staff, chart reviewed Patient is:: awake, verbal, interactive, ambulating, confused Per staff patient has:: no adverse event, no episodes of fall, eating well, tolerating meds Internal Medicine Objective - Results Recent Labs: Laboratory Last Values POC Glucose 188 MG/DL (70 - 105) H 02/02/19 19:27 Triglycerides 162 mg/dL (<150) H 12/31/18 08:04 Cholesterol 234 mg/dL (<200) H 12/31/18 08:04 LDL Cholesterol Direct 155 mg/dL (75-193) 12/31/18 08:04 HDL Cholesterol 62 mg/dL (23-92) 12/31/18 08:04 - Physical Exam Vitals and I&O: Vital Signs Temp 97.8 F 07/05/19 06:38 Pulse 75 07/05/19 06:38 Resp 18 07/05/19 06:38 BP 111/72 07/05/19 06:38 Pulse Ox 97 07/05/19 06:38 Intake & Output 07/04/19 07/05/19 07/05/19 18:59 06:59 18:59 Intake Total 1300 240 Balance 1300 240 Intake: Oral 1300 240 Other: # Voids 3 2 # Bowel Movements 0 0 Active Medications: Current Medications Acetaminophen (Tylenol) 650 mg PO Q4H PRN PRN Reason: Pain (Mild 1-3) Stop: 08/07/19 15:57 Last Admin: 06/08/19 16:13 Dose: 650 mg Alendronate Sodium (Fosamax) 70 mg PO We@0630 [facility] Stop: 09/02/19 06:29 Last Admin: 07/04/19 06:42 Dose: 70 mg Calcium/Vitamin D (Oscal W/Vitamin D) 1 tab PO DAILY [facility] Stop: 07/09/19 08:59 Last Admin: 07/04/19 08:33 Dose: 1 tab Donepezil HCl (Aricept) 10 mg PO [facility] Last Admin: 07/04/19 21:26 Dose: 10 mg General: demented, thin, appears younger HEENT: NC/AT, PERRLA, EOMI Neck: Supple, No JVD, No thyromegaly Lungs: CTAB Cardiovascular: RRR, Normal S1, Normal S2, with murmur Abdomen: soft, thin, non-distended, positive bowel sound Extremities: excoriation Neurological: no change Internal Medicine Assmt/Plan - Assessment Assessment: alzheimers dementa elevated chol djd osteoporosis ho old left hip fx - Plan Plan: fall precaution nutritional support cont on calcium supplemetn - resume fosamax will cont to follow dw rn add mvi placement ongoing Nutritional Asmnt/Malnutr-PDOC - Dietary Evaluation Malnutrition Findings (Please click <Entered> for more info): Nutritional Asmnt/Malnutrition Start: 01/04/19 09: 50 Text: Status: Complete Freq: Protocol: Document 01/04/19 14:59 LCHENG (Rec: 01/04/19 15:06 LCHENG [email or web address]) Nutritional Asmnt/Malnutrition Patient General Information Nutritional Screening Moderate Risk Diagnosis psychosis Pertinent Medical Hx/Surgical Hx dementia, DJD, osteoporosis Subjective Information pt seen lying in bed, awake and alert, stated food has beed great. Pt is not a big eater. Encourage to eat balanced meals and pt agreed with it. Per EMR, PO intake 75 -100% Current Diet Order/ Nutrition Support regular Pertinent Medications reviewed Pertinent Labs 12/31 reviewed Nutritional Hx/Data Height 1.65 m Height (Calculated Centimeters) 165.1 Current Weight (lbs) 74.843 kg Weight (Calculated Kilograms) 74.8 Weight (Calculated Grams) 09663.7 [place] Body Weight 125 Body Mass Index (BMI) 27.4 Weight Status Overweight GI Symptoms GI Symptoms None Last BM 01/04 x 2 Difficult in: None Skin Integrity/Comment: intact Current %PO Good (75-100%) Estimated Nutritional Goals BEE in Kcals: Using Current wt Calories/Kcals/Kg 23-27 Kcals Calculated 4033-5089 Protein: Using Current wt Protein g/k.8 Protein Calculated 60 Fluid: ml 1725-1998ml (1ml/kcal) Nutritional Problem No current Nutrition Prob Problem N/A Malnutrition Alert Is there a minimum of two criteria No selected? Query Text:Check all the applicable criteria. A minimum of two criteria are recommended for diagnosis of either severe or non-severe malnutrition. Malnutrition Related to Morbid Obesity Malnutrition related to morbid obesity No Intervention/Recommendation Comments 1. Continue with regular diet as ordered. 2. Monitor PO intake, wt, labs and skin integrity 3. F/U as low risk in 7 days Expected Outcomes/Goals Expected Outcomes/Goals 1. PO intake to meet at least 75% of nutritional needs. 2. Wt stability, skin to remain intact, labs to approach WNL.
--- NOTE | 2019-07-05 23:59 | Progress Notes ---
DATE: 07/05/2019 SUBJECTIVE: Chart was reviewed and the patient interviewed. Also discussed the patient's condition with the staff and reviewed records and labs. The patient is still anxious and is still wondering about her discharge date. The patient also is still restless and she is still having slight mood swings. The patient also still has difficulty with her mood. Otherwise, the patient is still considered to be gravely disabled, but no behavioral issues. ASSESSMENT: The patient is still gravely disabled. TREATMENT PLAN: Continue monitoring her behavior and her condition closely. Also continue working on her discharge plans and placement issue. JOB# [id number]
[2019-07-06] MEDS: Calcium Carb/Vit D 500 mg/200 U Tab PO SCH (08:39)
[2019-07-06] MEDS: Multivitamin w/ Minerals Tab PO SCH (08:39)
--- NOTE | 2019-07-06 13:04 | Internal Medicine Prog Note ---
Internal Medicine Subjective - Subjective Patient seen and examined:: with staff, chart reviewed Patient is:: awake, verbal, interactive, ambulating, confused Per staff patient has:: no adverse event, no episodes of fall, eating well, tolerating meds Internal Medicine Objective - Results Recent Labs: Laboratory Last Values POC Glucose 188 MG/DL (70 - 105) H 02/02/19 19:27 Triglycerides 162 mg/dL (<150) H 12/31/18 08:04 Cholesterol 234 mg/dL (<200) H 12/31/18 08:04 LDL Cholesterol Direct 155 mg/dL (75-193) 12/31/18 08:04 HDL Cholesterol 62 mg/dL (23-92) 12/31/18 08:04 - Physical Exam Vitals and I&O: Vital Signs Temp 97.5 F 07/06/19 06:31 Pulse 67 07/06/19 06:31 Resp 18 07/06/19 06:31 BP 110/67 07/06/19 06:31 Pulse Ox 98 07/06/19 06:31 Intake & Output 07/05/19 07/06/19 07/06/19 18:59 06:59 18:59 Intake Total 240 Balance 240 Intake: Oral 240 Other: # Voids 2 2 # Bowel Movements 0 0 Active Medications: Current Medications Acetaminophen (Tylenol) 650 mg PO Q4H PRN PRN Reason: Pain (Mild 1-3) Stop: 08/07/19 15:57 Last Admin: 06/08/19 16:13 Dose: 650 mg Alendronate Sodium (Fosamax) 70 mg PO We@0630 [facility] Stop: 09/02/19 06:29 Last Admin: 07/04/19 06:42 Dose: 70 mg Calcium/Vitamin D (Oscal W/Vitamin D) 1 tab PO DAILY [facility] Stop: 07/09/19 08:59 Last Admin: 07/06/19 08:39 Dose: 1 tab Donepezil HCl (Aricept) 10 mg PO [facility] Last Admin: 07/05/19 21:03 Dose: 10 mg General: demented, thin, appears younger HEENT: NC/AT, PERRLA, EOMI Neck: Supple, No JVD, No thyromegaly Lungs: CTAB Cardiovascular: RRR, Normal S1, Normal S2, with murmur Abdomen: soft, thin, non-distended, positive bowel sound Extremities: excoriation Neurological: no change Internal Medicine Assmt/Plan - Assessment Assessment: alzheimers dementa elevated chol djd osteoporosis ho old left hip fx - Plan Plan: fall precaution nutritional support cont on calcium supplemetn - resume fosamax will cont to follow dw rn add mvi placement ongoing Nutritional Asmnt/Malnutr-PDOC - Dietary Evaluation Malnutrition Findings (Please click <Entered> for more info): Nutritional Asmnt/Malnutrition Start: 01/04/19 09: 50 Text: Status: Complete Freq: Protocol: Document 01/04/19 14:59 LCHENG (Rec: 01/04/19 15:06 LCHENG [email or web address]) Nutritional Asmnt/Malnutrition Patient General Information Nutritional Screening Moderate Risk Diagnosis psychosis Pertinent Medical Hx/Surgical Hx dementia, DJD, osteoporosis Subjective Information pt seen lying in bed, awake and alert, stated food has beed great. Pt is not a big eater. Encourage to eat balanced meals and pt agreed with it. Per EMR, PO intake 75 -100% Current Diet Order/ Nutrition Support regular Pertinent Medications reviewed Pertinent Labs 12/31 reviewed Nutritional Hx/Data Height 1.65 m Height (Calculated Centimeters) 165.1 Current Weight (lbs) 74.843 kg Weight (Calculated Kilograms) 74.8 Weight (Calculated Grams) 70722.7 [place] Body Weight 125 Body Mass Index (BMI) 27.4 Weight Status Overweight GI Symptoms GI Symptoms None Last BM 01/04 x 2 Difficult in: None Skin Integrity/Comment: intact Current %PO Good (75-100%) Estimated Nutritional Goals BEE in Kcals: Using Current wt Calories/Kcals/Kg 23-27 Kcals Calculated 5951-0354 Protein: Using Current wt Protein g/k.8 Protein Calculated 60 Fluid: ml 1725-1998ml (1ml/kcal) Nutritional Problem No current Nutrition Prob Problem N/A Malnutrition Alert Is there a minimum of two criteria No selected? Query Text:Check all the applicable criteria. A minimum of two criteria are recommended for diagnosis of either severe or non-severe malnutrition. Malnutrition Related to Morbid Obesity Malnutrition related to morbid obesity No Intervention/Recommendation Comments 1. Continue with regular diet as ordered. 2. Monitor PO intake, wt, labs and skin integrity 3. F/U as low risk in 7 days Expected Outcomes/Goals Expected Outcomes/Goals 1. PO intake to meet at least 75% of nutritional needs. 2. Wt stability, skin to remain intact, labs to approach WNL.
--- NOTE | 2019-07-07 04:03 | Progress Notes ---
DATE: PSYCHIATRIC PROGRESS NOTE SUBJECTIVE: Chart was reviewed and the patient interviewed. Also discussed the patient's condition with the staff and reviewed records and labs. The patient is still anxious about her discharge, but she is still cooperative and she is still compliant with taking her medications. The patient also is interacting appropriately with peers and with others, but in a confused state. She also is still forgetful and needs redirections. Otherwise, the patient is compliant with taking her medications with no side effects of medications. ASSESSMENT: The patient is still considered to be gravely disabled and she is still waiting for placement. TREATMENT PLAN: Continue current treatment and current medications and continue to work on placement issue. JOB# [id number]
[2019-07-07] MEDS: Multivitamin w/ Minerals Tab PO SCH (08:54)
[2019-07-07] MEDS: Calcium Carb/Vit D 500 mg/200 U Tab PO SCH (08:54)
--- NOTE | 2019-07-07 13:05 | Internal Medicine Prog Note ---
Internal Medicine Subjective - Subjective Service Date: 07/07/19 Patient is:: awake, verbal, interactive, ambulating, confused Per staff patient has:: no adverse event, no episodes of fall, eating well, tolerating meds Internal Medicine Objective - Results Recent Labs: Laboratory Last Values POC Glucose 188 MG/DL (70 - 105) H 02/02/19 19:27 Triglycerides 162 mg/dL (<150) H 12/31/18 08:04 Cholesterol 234 mg/dL (<200) H 12/31/18 08:04 LDL Cholesterol Direct 155 mg/dL (75-193) 12/31/18 08:04 HDL Cholesterol 62 mg/dL (23-92) 12/31/18 08:04 - Physical Exam Vitals and I&O: Vital Signs Temp 97.2 F 07/07/19 06:25 Pulse 77 07/07/19 06:25 Resp 18 07/07/19 06:25 BP 110/72 07/07/19 06:25 Pulse Ox 98 07/07/19 06:25 Intake & Output 07/06/19 07/07/19 07/07/19 18:59 06:59 18:59 Intake Total 1000 240 Balance 1000 240 Intake: Oral 1000 240 Other: # Voids 4 3 # Bowel Movements 1 1 Active Medications: Current Medications Acetaminophen (Tylenol) 650 mg PO Q4H PRN PRN Reason: Pain (Mild 1-3) Stop: 08/07/19 15:57 Last Admin: 06/08/19 16:13 Dose: 650 mg Alendronate Sodium (Fosamax) 70 mg PO We@0630 [facility] Stop: 09/02/19 06:29 Last Admin: 07/04/19 06:42 Dose: 70 mg Calcium/Vitamin D (Oscal W/Vitamin D) 1 tab PO DAILY [facility] Stop: 07/09/19 08:59 Last Admin: 07/07/19 08:54 Dose: 1 tab Donepezil HCl (Aricept) [address] [facility] Last Admin: 07/06/19 20:26 Dose: 10 mg General: demented, thin, appears younger HEENT: NC/AT, PERRLA, EOMI Neck: Supple, No JVD, No thyromegaly Lungs: CTAB Cardiovascular: RRR, Normal S1, Normal S2, with murmur Abdomen: soft, thin, non-distended, positive bowel sound Extremities: excoriation Neurological: no change Internal Medicine Assmt/Plan - Assessment Assessment: alzheimers dementa elevated chol djd osteoporosis - Plan Plan: fall precaution nutritional support cont on calcium supplemetn will cont to follow dw rn add mvi placement ongoing Nutritional Asmnt/Malnutr-PDOC - Dietary Evaluation Malnutrition Findings (Please click <Entered> for more info): Nutritional Asmnt/Malnutrition Start: 01/04/19 09: 50 Text: Status: Complete Freq: Protocol: Document 01/04/19 14:59 LCHENG (Rec: 01/04/19 15:06 LCHENG [email or web address]) Nutritional Asmnt/Malnutrition Patient General Information Nutritional Screening Moderate Risk Diagnosis psychosis Pertinent Medical Hx/Surgical Hx dementia, DJD, osteoporosis Subjective Information pt seen lying in bed, awake and alert, stated food has beed great. Pt is not a big eater. Encourage to eat balanced meals and pt agreed with it. Per EMR, PO intake 75 -100% Current Diet Order/ Nutrition Support regular Pertinent Medications reviewed Pertinent Labs 12/31 reviewed Nutritional Hx/Data Height 5 ft 5 in Height (Calculated Centimeters) 165.1 Current Weight (lbs) 165 lb Weight (Calculated Kilograms) 74.8 Weight (Calculated Grams) 76910.7 [place] Body Weight 125 Body Mass Index (BMI) 27.4 Weight Status Overweight GI Symptoms GI Symptoms None Last BM 01/04 x 2 Difficult in: None Skin Integrity/Comment: intact Current %PO Good (75-100%) Estimated Nutritional Goals BEE in Kcals: Using Current wt Calories/Kcals/Kg 23-27 Kcals Calculated 7666-3111 Protein: Using Current wt Protein g/k.8 Protein Calculated 60 Fluid: ml 1725-1998ml (1ml/kcal) Nutritional Problem No current Nutrition Prob Problem N/A Malnutrition Alert Is there a minimum of two criteria No selected? Query Text:Check all the applicable criteria. A minimum of two criteria are recommended for diagnosis of either severe or non-severe malnutrition. Malnutrition Related to Morbid Obesity Malnutrition related to morbid obesity No Intervention/Recommendation Comments 1. Continue with regular diet as ordered. 2. Monitor PO intake, wt, labs and skin integrity 3. F/U as low risk in 7 days Expected Outcomes/Goals Expected Outcomes/Goals 1. PO intake to meet at least 75% of nutritional needs. 2. Wt stability, skin to remain intact, labs to approach WNL.
--- NOTE | 2019-07-07 20:38 | Progress Notes ---
DATE: 07/07/2019 PSYCHIATRIC PROGRESS NOTE SUBJECTIVE: Chart reviewed and the patient interviewed. Also, discussed the patient's condition with the staff and reviewed records and labs. The patient is still wandering around the unit in a confused state, but her affect is brighter and no behavioral problems. The patient also is still expressing her desire to leave, but at the same time waiting for placement. She is interacting more and personal hygiene is fair. ASSESSMENT: The patient is still gravely disabled and waiting for placement. TREATMENT PLAN: Continue to monitor behavior and condition and continue current medications and also continue to work on placement issue and discharge plans. JOB# [id number]
--- NOTE | 2019-07-08 06:59 | Progress Notes ---
DATE: 07/08/2019 SUBJECTIVE: Chart reviewed and the patient interviewed. Also discussed the patient's condition with the staff and reviewed records and labs. The patient is still anxious and is still confused, but affect is brighter. The patient also is still depressed for her hospital long stay and not able to return to her home, but at the same time, still waiting for court orders to release her back to her home. The patient also is still cooperative with her treatment and compliant with taking her medications. ASSESSMENT: The patient is still anxious and is still considered to be gravely disabled. TREATMENT PLAN: Continue current treatment and continue current medications and working on discharge plans and placement issue. JOB# [id number]
[2019-07-08] MEDS: Multivitamin w/ Minerals Tab PO SCH (08:39)
[2019-07-08] MEDS: Calcium Carb/Vit D 500 mg/200 U Tab PO SCH (08:39)
--- NOTE | 2019-07-08 12:11 | Internal Medicine Prog Note ---
Internal Medicine Subjective - Subjective Service Date: 07/08/19 Patient is:: awake, verbal, interactive, ambulating, confused Per staff patient has:: no adverse event, no episodes of fall, eating well, tolerating meds Internal Medicine Objective - Results Recent Labs: Laboratory Last Values POC Glucose 188 MG/DL (70 - 105) H 02/02/19 19:27 Triglycerides 162 mg/dL (<150) H 12/31/18 08:04 Cholesterol 234 mg/dL (<200) H 12/31/18 08:04 LDL Cholesterol Direct 155 mg/dL (75-193) 12/31/18 08:04 HDL Cholesterol 62 mg/dL (23-92) 12/31/18 08:04 - Physical Exam Vitals and I&O: Vital Signs Temp 97.9 F 07/08/19 06:19 Pulse 75 07/08/19 06:19 Resp 20 07/08/19 06:19 BP 124/79 07/08/19 06:19 Pulse Ox 99 07/08/19 06:19 Intake & Output 07/07/19 07/08/19 07/08/19 18:59 06:59 18:59 Intake Total 1200 480 Balance 1200 480 Intake: Oral 1200 480 Other: # Voids 1 # Bowel Movements 1 Active Medications: Current Medications Acetaminophen (Tylenol) 650 mg PO Q4H PRN PRN Reason: Pain (Mild 1-3) Stop: 08/07/19 15:57 Last Admin: 06/08/19 16:13 Dose: 650 mg Alendronate Sodium (Fosamax) 70 mg PO We@0630 [facility] Stop: 09/02/19 06:29 Last Admin: 07/04/19 06:42 Dose: 70 mg Calcium/Vitamin D (Oscal W/Vitamin D) 1 tab PO DAILY [facility] Stop: 07/09/19 08:59 Last Admin: 07/08/19 08:39 Dose: 1 tab Donepezil HCl (Aricept) 10 mg PO HS [facility] Last Admin: 07/07/19 20:56 Dose: 10 mg General: demented, thin, appears younger HEENT: NC/AT, PERRLA, EOMI Neck: Supple, No JVD, No thyromegaly Lungs: CTAB Cardiovascular: RRR, Normal S1, Normal S2, with murmur Abdomen: soft, thin, non-distended, positive bowel sound Extremities: excoriation Neurological: no change Internal Medicine Assmt/Plan - Assessment Assessment: alzheimers dementa elevated chol djd osteoporosis - Plan Plan: fall precaution nutritional support cont on calcium supplemetn will cont to follow dw rn add mvi placement ongoing Nutritional Asmnt/Malnutr-PDOC - Dietary Evaluation Malnutrition Findings (Please click <Entered> for more info): Nutritional Asmnt/Malnutrition Start: 01/04/19 09: 50 Text: Status: Complete Freq: Protocol: Document 01/04/19 14:59 LCHENG (Rec: 01/04/19 15:06 LCHENG [email or web address]) Nutritional Asmnt/Malnutrition Patient General Information Nutritional Screening Moderate Risk Diagnosis psychosis Pertinent Medical Hx/Surgical Hx dementia, DJD, osteoporosis Subjective Information pt seen lying in bed, awake and alert, stated food has beed great. Pt is not a big eater. Encourage to eat balanced meals and pt agreed with it. Per EMR, PO intake 75 -100% Current Diet Order/ Nutrition Support regular Pertinent Medications reviewed Pertinent Labs 12/31 reviewed Nutritional Hx/Data Height 5 ft 5 in Height (Calculated Centimeters) 165.1 Current Weight (lbs) 165 lb Weight (Calculated Kilograms) 74.8 Weight (Calculated Grams) 59353.7 [place] Body Weight 125 Body Mass Index (BMI) 27.4 Weight Status Overweight GI Symptoms GI Symptoms None Last BM 01/04 x 2 Difficult in: None Skin Integrity/Comment: intact Current %PO Good (75-100%) Estimated Nutritional Goals BEE in Kcals: Using Current wt Calories/Kcals/Kg 23-27 Kcals Calculated 1322-1299 Protein: Using Current wt Protein g/k.8 Protein Calculated 60 Fluid: ml 1725-1998ml (1ml/kcal) Nutritional Problem No current Nutrition Prob Problem N/A Malnutrition Alert Is there a minimum of two criteria No selected? Query Text:Check all the applicable criteria. A minimum of two criteria are recommended for diagnosis of either severe or non-severe malnutrition. Malnutrition Related to Morbid Obesity Malnutrition related to morbid obesity No Intervention/Recommendation Comments 1. Continue with regular diet as ordered. 2. Monitor PO intake, wt, labs and skin integrity 3. F/U as low risk in 7 days Expected Outcomes/Goals Expected Outcomes/Goals 1. PO intake to meet at least 75% of nutritional needs. 2. Wt stability, skin to remain intact, labs to approach WNL.
[2019-07-09] MEDS: Multivitamin w/ Minerals Tab PO SCH (08:23)
--- NOTE | 2019-07-09 13:01 | Internal Medicine Prog Note ---
Internal Medicine Subjective - Subjective Patient seen and examined:: with staff, chart reviewed Patient is:: awake, verbal, interactive, ambulating, confused Per staff patient has:: no adverse event, no episodes of fall, eating well, tolerating meds Internal Medicine Objective - Results Recent Labs: Laboratory Last Values POC Glucose 188 MG/DL (70 - 105) H 02/02/19 19:27 Triglycerides 162 mg/dL (<150) H 12/31/18 08:04 Cholesterol 234 mg/dL (<200) H 12/31/18 08:04 LDL Cholesterol Direct 155 mg/dL (75-193) 12/31/18 08:04 HDL Cholesterol 62 mg/dL (23-92) 12/31/18 08:04 - Physical Exam Vitals and I&O: Vital Signs Temp 97.7 F 07/09/19 06:09 Pulse 69 07/09/19 06:09 Resp 19 07/09/19 08:00 BP 112/78 07/09/19 06:09 Pulse Ox 99 07/09/19 06:09 Intake & Output 07/08/19 07/09/19 07/09/19 18:59 06:59 18:59 Intake Total 900 300 Balance 900 300 Intake: Oral 900 300 Other: # Voids 3 1 # Bowel Movements 1 0 Active Medications: Current Medications Acetaminophen (Tylenol) 650 mg PO Q4H PRN PRN Reason: Pain (Mild 1-3) Stop: 08/07/19 15:57 Last Admin: 06/08/19 16:13 Dose: 650 mg Alendronate Sodium (Fosamax) 70 mg PO We@0630 [facility] Stop: 09/02/19 06:29 Last Admin: 07/04/19 06:42 Dose: 70 mg Donepezil HCl (Aricept) 10 mg PO [facility] Last Admin: 07/08/19 20:52 Dose: 10 mg General: demented, thin, appears younger HEENT: NC/AT, PERRLA, EOMI Neck: Supple, No JVD, No thyromegaly Lungs: CTAB Cardiovascular: RRR, Normal S1, Normal S2, with murmur Abdomen: soft, thin, non-distended, positive bowel sound Extremities: excoriation Neurological: no change Internal Medicine Assmt/Plan - Assessment Assessment: alzheimers dementa elevated chol djd osteoporosis ho old left hip fx - Plan Plan: fall precaution nutritional support cont on calcium supplemetn - resume fosamax will cont to follow dw rn add mvi placement ongoing Nutritional Asmnt/Malnutr-PDOC - Dietary Evaluation Malnutrition Findings (Please click <Entered> for more info): Nutritional Asmnt/Malnutrition Start: 01/04/19 09: 50 Text: Status: Complete Freq: Protocol: Document 01/04/19 14:59 LCCOREY (Rec: 01/04/19 15:06 LCHENG [email or web address]) Nutritional Asmnt/Malnutrition Patient General Information Nutritional Screening Moderate Risk Diagnosis psychosis Pertinent Medical Hx/Surgical Hx dementia, DJD, osteoporosis Subjective Information pt seen lying in bed, awake and alert, stated food has beed great. Pt is not a big eater. Encourage to eat balanced meals and pt agreed with it. Per EMR, PO intake 75 -100% Current Diet Order/ Nutrition Support regular Pertinent Medications reviewed Pertinent Labs 12/31 reviewed Nutritional Hx/Data Height 1.65 m Height (Calculated Centimeters) 165.1 Current Weight (lbs) 74.843 kg Weight (Calculated Kilograms) 74.8 Weight (Calculated Grams) 36260.7 [place] Body Weight 125 Body Mass Index (BMI) 27.4 Weight Status Overweight GI Symptoms GI Symptoms None Last BM 01/04 x 2 Difficult in: None Skin Integrity/Comment: intact Current %PO Good (75-100%) Estimated Nutritional Goals BEE in Kcals: Using Current wt Calories/Kcals/Kg 23-27 Kcals Calculated 1025-7351 Protein: Using Current wt Protein g/k.8 Protein Calculated 60 Fluid: ml 1725-1998ml (1ml/kcal) Nutritional Problem No current Nutrition Prob Problem N/A Malnutrition Alert Is there a minimum of two criteria No selected? Query Text:Check all the applicable criteria. A minimum of two criteria are recommended for diagnosis of either severe or non-severe malnutrition. Malnutrition Related to Morbid Obesity Malnutrition related to morbid obesity No Intervention/Recommendation Comments 1. Continue with regular diet as ordered. 2. Monitor PO intake, wt, labs and skin integrity 3. F/U as low risk in 7 days Expected Outcomes/Goals Expected Outcomes/Goals 1. PO intake to meet at least 75% of nutritional needs. 2. Wt stability, skin to remain intact, labs to approach WNL.
--- NOTE | 2019-07-10 03:40 | Progress Notes ---
DATE: PSYCHIATRIC PROGRESS NOTE SUBJECTIVE: Chart reviewed and the patient interviewed. Also discussed the patient's condition with the staff and reviewed records and labs. The patient is still anxious about her discharge and she is still wandering around the unit in a confused state, but easy to redirect her, and no behavioral problems. The patient also is cooperative with her treatment and compliant with taking her medications. The patient denies any intention to harm herself or others. She also denies any thoughts of suicide or homicide. ASSESSMENT: The patient is still waiting for placement. TREATMENT PLAN: Continue to monitor behavior and condition. Also, continue to work on placement issue and waiting for final conservatorship procedures. JOB# [id number]
--- NOTE | 2019-07-10 07:54 | Progress Notes ---
DATE: 07/10/2019 SUBJECTIVE: Chart was reviewed and the patient interviewed. Also discussed the patient's condition with the staff and reviewed records and labs. The patient is pleasantly confused and she is still anxious and is still asking about her discharge date. The patient, on the other hand, is easier to calm her down and easier to follow directions. The patient also is interacting appropriately with peers and with others. She denies any intention to harm herself or others. At the same time, the patient is compliant with taking her medications with no side effects of medications. ASSESSMENT: The patient is still considered to be gravely disabled and still needs lots of assistance. TREATMENT PLAN: Continue monitoring her behavior and her condition closely. Also, continue adjusting psychotropic medications and working on behavioral modification. JOB# [id number]
[2019-07-10] MEDS: Multivitamin w/ Minerals Tab PO SCH (09:12)
[2019-07-10] MEDS: Calcium Carb/Vit D 500 mg/200 U Tab PO SCH (09:12)
--- NOTE | 2019-07-10 12:03 | Internal Medicine Prog Note ---
Internal Medicine Subjective - Subjective Patient seen and examined:: with staff, chart reviewed Patient is:: awake, verbal, interactive, ambulating, confused Per staff patient has:: no adverse event, no episodes of fall, eating well, tolerating meds Internal Medicine Objective - Results Recent Labs: Laboratory Last Values POC Glucose 188 MG/DL (70 - 105) H 02/02/19 19:27 Triglycerides 162 mg/dL (<150) H 12/31/18 08:04 Cholesterol 234 mg/dL (<200) H 12/31/18 08:04 LDL Cholesterol Direct 155 mg/dL (75-193) 12/31/18 08:04 HDL Cholesterol 62 mg/dL (23-92) 12/31/18 08:04 - Physical Exam Vitals and I&O: Vital Signs Temp 97.4 F 07/10/19 05:59 Pulse 75 07/10/19 05:59 Resp 18 07/10/19 08:00 BP 115/73 07/10/19 05:59 Pulse Ox 94 07/10/19 05:59 Intake & Output 07/09/19 07/10/19 07/10/19 18:59 06:59 18:59 Intake Total 1000 240 Balance 1000 240 Intake: Oral 1000 240 Other: # Voids 3 2 # Bowel Movements 1 Active Medications: Current Medications Acetaminophen (Tylenol) 650 mg PO Q4H PRN PRN Reason: Pain (Mild 1-3) Stop: 08/07/19 15:57 Last Admin: 06/08/19 16:13 Dose: 650 mg Alendronate Sodium (Fosamax) 70 mg PO We@0630 [facility] Stop: 09/02/19 06:29 Last Admin: 07/04/19 06:42 Dose: 70 mg Calcium/Vitamin D (Oscal W/Vitamin D) 1 tab PO DAILY [facility] Stop: 09/08/19 08:59 Last Admin: 07/10/19 09:12 Dose: 1 tab Donepezil HCl (Aricept) 10 mg PO [facility] Last Admin: 07/09/19 21:06 Dose: 10 mg General: demented, thin, appears younger HEENT: NC/AT, PERRLA, EOMI Neck: Supple, No JVD, No thyromegaly Lungs: CTAB Cardiovascular: RRR, Normal S1, Normal S2, with murmur Abdomen: soft, thin, non-distended, positive bowel sound Extremities: excoriation Neurological: no change Internal Medicine Assmt/Plan - Assessment Assessment: alzheimers dementa elevated chol djd osteoporosis ho old left hip fx - Plan Plan: fall precaution nutritional support cont on calcium supplemetn - resume fosamax will cont to follow dw rn add mvi placement ongoing Nutritional Asmnt/Malnutr-PDOC - Dietary Evaluation Malnutrition Findings (Please click <Entered> for more info): Nutritional Asmnt/Malnutrition Start: 01/04/19 09: 50 Text: Status: Complete Freq: Protocol: Document 01/04/19 14:59 LCHENG (Rec: 01/04/19 15:06 LCHENG [email or web address]) Nutritional Asmnt/Malnutrition Patient General Information Nutritional Screening Moderate Risk Diagnosis psychosis Pertinent Medical Hx/Surgical Hx dementia, DJD, osteoporosis Subjective Information pt seen lying in bed, awake and alert, stated food has beed great. Pt is not a big eater. Encourage to eat balanced meals and pt agreed with it. Per EMR, PO intake 75 -100% Current Diet Order/ Nutrition Support regular Pertinent Medications reviewed Pertinent Labs 12/31 reviewed Nutritional Hx/Data Height 1.65 m Height (Calculated Centimeters) 165.1 Current Weight (lbs) 74.843 kg Weight (Calculated Kilograms) 74.8 Weight (Calculated Grams) 64684.7 [place] Body Weight 125 Body Mass Index (BMI) 27.4 Weight Status Overweight GI Symptoms GI Symptoms None Last BM 01/04 x 2 Difficult in: None Skin Integrity/Comment: intact Current %PO Good (75-100%) Estimated Nutritional Goals BEE in Kcals: Using Current wt Calories/Kcals/Kg 23-27 Kcals Calculated 5612-2131 Protein: Using Current wt Protein g/k.8 Protein Calculated 60 Fluid: ml 1725-1998ml (1ml/kcal) Nutritional Problem No current Nutrition Prob Problem N/A Malnutrition Alert Is there a minimum of two criteria No selected? Query Text:Check all the applicable criteria. A minimum of two criteria are recommended for diagnosis of either severe or non-severe malnutrition. Malnutrition Related to Morbid Obesity Malnutrition related to morbid obesity No Intervention/Recommendation Comments 1. Continue with regular diet as ordered. 2. Monitor PO intake, wt, labs and skin integrity 3. F/U as low risk in 7 days Expected Outcomes/Goals Expected Outcomes/Goals 1. PO intake to meet at least 75% of nutritional needs. 2. Wt stability, skin to remain intact, labs to approach WNL.
--- NOTE | 2019-07-11 07:35 | Progress Notes ---
DATE: SUBJECTIVE: Chart was reviewed and the patient interviewed. Also discussed the patient's condition with the staff and reviewed records and labs. The patient is still pleasantly confused and is still anxious. The patient also still has mood swings and is still wandering around the unit in a confused state, but no behavioral problems. The patient also is still unable to provide any safe plan for self-care. ASSESSMENT: The patient is still pleasantly confused and considered to be gravely disabled. TREATMENT PLAN: Continue monitoring her behavior and her condition closely. Also, continue adjusting psychotropic medications and work on behavioral modification. JOB# [id number]
[2019-07-11] MEDS: Calcium Carb/Vit D 500 mg/200 U Tab PO SCH (08:26)
[2019-07-11] MEDS: Multivitamin w/ Minerals Tab PO SCH (08:27)
--- NOTE | 2019-07-11 12:34 | Internal Medicine Prog Note ---
Internal Medicine Subjective - Subjective Patient seen and examined:: with staff, chart reviewed Patient is:: awake, verbal, interactive, ambulating, confused Per staff patient has:: no adverse event, no episodes of fall, eating well, tolerating meds Internal Medicine Objective - Results Recent Labs: Laboratory Last Values POC Glucose 188 MG/DL (70 - 105) H 02/02/19 19:27 Triglycerides 162 mg/dL (<150) H 12/31/18 08:04 Cholesterol 234 mg/dL (<200) H 12/31/18 08:04 LDL Cholesterol Direct 155 mg/dL (75-193) 12/31/18 08:04 HDL Cholesterol 62 mg/dL (23-92) 12/31/18 08:04 - Physical Exam Vitals and I&O: Vital Signs Temp 97.6 F 07/11/19 06:29 Pulse 83 07/11/19 06:29 Resp 19 07/11/19 06:29 BP 120/58 07/11/19 06:29 Pulse Ox 98 07/11/19 06:29 Intake & Output 07/10/19 07/11/19 07/11/19 18:59 06:59 18:59 Intake Total 120 Balance 120 Intake: Oral 120 Other: # Voids 2 1 # Bowel Movements 0 0 Active Medications: Current Medications Acetaminophen (Tylenol) 650 mg PO Q4H PRN PRN Reason: Pain (Mild 1-3) Stop: 08/07/19 15:57 Last Admin: 06/08/19 16:13 Dose: 650 mg Alendronate Sodium (Fosamax) 70 mg PO We@0630 [facility] Stop: 09/02/19 06:29 Last Admin: 07/04/19 06:42 Dose: 70 mg Calcium/Vitamin D (Oscal W/Vitamin D) 1 tab PO DAILY [facility] Stop: 09/08/19 08:59 Last Admin: 07/11/19 08:26 Dose: 1 tab Donepezil HCl (Aricept) 10 mg PO [facility] Last Admin: 07/10/19 20:42 Dose: 10 mg General: demented, thin, appears younger HEENT: NC/AT, PERRLA, EOMI Neck: Supple, No JVD, No thyromegaly Lungs: CTAB Cardiovascular: RRR, Normal S1, Normal S2, with murmur Abdomen: soft, thin, non-distended, positive bowel sound Extremities: excoriation Neurological: no change Internal Medicine Assmt/Plan - Assessment Assessment: alzheimers dementa elevated chol djd osteoporosis ho old left hip fx - Plan Plan: fall precaution nutritional support cont on calcium supplemetn - resume fosamax will cont to follow dw rn add mvi placement ongoing Nutritional Asmnt/Malnutr-PDOC - Dietary Evaluation Malnutrition Findings (Please click <Entered> for more info): Nutritional Asmnt/Malnutrition Start: 01/04/19 09: 50 Text: Status: Complete Freq: Protocol: Document 01/04/19 14:59 LCHENG (Rec: 01/04/19 15:06 LCHENG [email or web address]) Nutritional Asmnt/Malnutrition Patient General Information Nutritional Screening Moderate Risk Diagnosis psychosis Pertinent Medical Hx/Surgical Hx dementia, DJD, osteoporosis Subjective Information pt seen lying in bed, awake and alert, stated food has beed great. Pt is not a big eater. Encourage to eat balanced meals and pt agreed with it. Per EMR, PO intake 75 -100% Current Diet Order/ Nutrition Support regular Pertinent Medications reviewed Pertinent Labs 12/31 reviewed Nutritional Hx/Data Height 1.65 m Height (Calculated Centimeters) 165.1 Current Weight (lbs) 74.843 kg Weight (Calculated Kilograms) 74.8 Weight (Calculated Grams) 88091.7 [place] Body Weight 125 Body Mass Index (BMI) 27.4 Weight Status Overweight GI Symptoms GI Symptoms None Last BM 01/04 x 2 Difficult in: None Skin Integrity/Comment: intact Current %PO Good (75-100%) Estimated Nutritional Goals BEE in Kcals: Using Current wt Calories/Kcals/Kg 23-27 Kcals Calculated 9872-6159 Protein: Using Current wt Protein g/k.8 Protein Calculated 60 Fluid: ml 1725-1998ml (1ml/kcal) Nutritional Problem No current Nutrition Prob Problem N/A Malnutrition Alert Is there a minimum of two criteria No selected? Query Text:Check all the applicable criteria. A minimum of two criteria are recommended for diagnosis of either severe or non-severe malnutrition. Malnutrition Related to Morbid Obesity Malnutrition related to morbid obesity No Intervention/Recommendation Comments 1. Continue with regular diet as ordered. 2. Monitor PO intake, wt, labs and skin integrity 3. F/U as low risk in 7 days Expected Outcomes/Goals Expected Outcomes/Goals 1. PO intake to meet at least 75% of nutritional needs. 2. Wt stability, skin to remain intact, labs to approach WNL.
[2019-07-12] MEDS: Calcium Carb/Vit D 500 mg/200 U Tab PO SCH (08:27)
[2019-07-12] MEDS: Multivitamin w/ Minerals Tab PO SCH (08:27)
--- NOTE | 2019-07-12 09:32 | Progress Notes ---
DATE: SUBJECTIVE: Chart was reviewed and the patient interviewed. Also discussed the patient's condition with the staff and reviewed records and labs. The patient is calm and cooperative, still confused and pacing up and down the unit. The patient also is frustrating with her long hospital stay. At the same time, rehabilitation caseworker is still working on placement issue and on discharge plans. The patient is also not able to give any safe plan for self care. ASSESSMENT: The patient is still considered to be gravely disabled. TREATMENT PLAN: We will continue to monitor her condition and behavior. Also, continue to work on her irritability and her agitation and continue to follow up closely. JOB# [id number]
--- NOTE | 2019-07-12 13:07 | Internal Medicine Prog Note ---
Internal Medicine Subjective - Subjective Patient seen and examined:: with staff, chart reviewed, other (no new complaint) Patient is:: awake, verbal, interactive, ambulating, confused Per staff patient has:: no adverse event, no episodes of fall, eating well, tolerating meds Internal Medicine Objective - Results Recent Labs: Laboratory Last Values POC Glucose 188 MG/DL (70 - 105) H 02/02/19 19:27 Triglycerides 162 mg/dL (<150) H 12/31/18 08:04 Cholesterol 234 mg/dL (<200) H 12/31/18 08:04 LDL Cholesterol Direct 155 mg/dL (75-193) 12/31/18 08:04 HDL Cholesterol 62 mg/dL (23-92) 12/31/18 08:04 - Physical Exam Vitals and I&O: Vital Signs Temp 97.3 F 07/12/19 06:16 Pulse 84 07/12/19 06:16 Resp 19 07/12/19 06:16 BP 103/75 07/12/19 06:16 Pulse Ox 98 07/12/19 06:16 Intake & Output 07/11/19 07/12/19 07/12/19 18:59 06:59 18:59 Intake Total 900 120 Balance 900 120 Intake: Oral 900 120 Other: # Voids 3 1 # Bowel Movements 1 0 Active Medications: Current Medications Acetaminophen (Tylenol) 650 mg PO Q4H PRN PRN Reason: Pain (Mild 1-3) Stop: 08/07/19 15:57 Last Admin: 06/08/19 16:13 Dose: 650 mg Alendronate Sodium (Fosamax) 70 mg PO We@0630 [facility] Stop: 09/02/19 06:29 Last Admin: 07/04/19 06:42 Dose: 70 mg Calcium/Vitamin D (Oscal W/Vitamin D) 1 tab PO DAILY [facility] Stop: 09/08/19 08:59 Last Admin: 07/12/19 08:27 Dose: 1 tab Donepezil HCl (Aricept) 10 mg PO [facility] Last Admin: 07/11/19 20:45 Dose: 10 mg General: demented, thin, appears younger HEENT: NC/AT, PERRLA, EOMI Neck: Supple, No JVD, No thyromegaly Lungs: CTAB Cardiovascular: RRR, Normal S1, Normal S2, with murmur Abdomen: soft, thin, non-distended, positive bowel sound Extremities: excoriation Neurological: no change Internal Medicine Assmt/Plan - Assessment Assessment: alzheimers dementa elevated chol djd osteoporosis ho old left hip fx - Plan Plan: fall precaution nutritional support cont on calcium supplemetn - resume fosamax will cont to follow dw rn add mvi Nutritional Asmnt/Malnutr-PDOC - Dietary Evaluation Malnutrition Findings (Please click <Entered> for more info): Nutritional Asmnt/Malnutrition Start: 01/04/19 09: 50 Text: Status: Complete Freq: Protocol: Document 01/04/19 14:59 LCHENG (Rec: 01/04/19 15:06 LCHENG [email or web address]) Nutritional Asmnt/Malnutrition Patient General Information Nutritional Screening Moderate Risk Diagnosis psychosis Pertinent Medical Hx/Surgical Hx dementia, DJD, osteoporosis Subjective Information pt seen lying in bed, awake and alert, stated food has beed great. Pt is not a big eater. Encourage to eat balanced meals and pt agreed with it. Per EMR, PO intake 75 -100% Current Diet Order/ Nutrition Support regular Pertinent Medications reviewed Pertinent Labs 12/31 reviewed Nutritional Hx/Data Height 1.65 m Height (Calculated Centimeters) 165.1 Current Weight (lbs) 74.843 kg Weight (Calculated Kilograms) 74.8 Weight (Calculated Grams) 73546.7 [place] Body Weight 125 Body Mass Index (BMI) 27.4 Weight Status Overweight GI Symptoms GI Symptoms None Last BM 01/04 x 2 Difficult in: None Skin Integrity/Comment: intact Current %PO Good (75-100%) Estimated Nutritional Goals BEE in Kcals: Using Current wt Calories/Kcals/Kg 23-27 Kcals Calculated 2403-7341 Protein: Using Current wt Protein g/k.8 Protein Calculated 60 Fluid: ml 1725-1998ml (1ml/kcal) Nutritional Problem No current Nutrition Prob Problem N/A Malnutrition Alert Is there a minimum of two criteria No selected? Query Text:Check all the applicable criteria. A minimum of two criteria are recommended for diagnosis of either severe or non-severe malnutrition. Malnutrition Related to Morbid Obesity Malnutrition related to morbid obesity No Intervention/Recommendation Comments 1. Continue with regular diet as ordered. 2. Monitor PO intake, wt, labs and skin integrity 3. F/U as low risk in 7 days Expected Outcomes/Goals Expected Outcomes/Goals 1. PO intake to meet at least 75% of nutritional needs. 2. Wt stability, skin to remain intact, labs to approach WNL.
[2019-07-13] MEDS: Calcium Carb/Vit D 500 mg/200 U Tab PO SCH (08:18)
[2019-07-13] MEDS: Multivitamin w/ Minerals Tab PO SCH (08:19)
--- NOTE | 2019-07-13 12:38 | Internal Medicine Prog Note ---
Internal Medicine Subjective - Subjective Patient seen and examined:: with staff, chart reviewed, other (eating ok) Patient is:: awake, verbal, interactive, ambulating, confused Per staff patient has:: no adverse event, no episodes of fall, eating well, tolerating meds Internal Medicine Objective - Results Recent Labs: Laboratory Last Values POC Glucose 188 MG/DL (70 - 105) H 02/02/19 19:27 Triglycerides 162 mg/dL (<150) H 12/31/18 08:04 Cholesterol 234 mg/dL (<200) H 12/31/18 08:04 LDL Cholesterol Direct 155 mg/dL (75-193) 12/31/18 08:04 HDL Cholesterol 62 mg/dL (23-92) 12/31/18 08:04 - Physical Exam Vitals and I&O: Vital Signs Temp 97.8 F 07/13/19 06:43 Pulse 71 07/13/19 06:43 Resp 18 07/13/19 06:43 BP 113/70 07/13/19 06:43 Pulse Ox 95 07/13/19 06:43 Intake & Output 07/12/19 07/13/19 07/13/19 18:59 06:59 18:59 Intake Total 240 Balance 240 Intake: Oral 240 Other: # Voids 3 # Bowel Movements 1 Active Medications: Current Medications Acetaminophen (Tylenol) 650 mg PO Q4H PRN PRN Reason: Pain (Mild 1-3) Stop: 08/07/19 15:57 Last Admin: 06/08/19 16:13 Dose: 650 mg Alendronate Sodium (Fosamax) 70 mg PO We@0630 [facility] Stop: 09/02/19 06:29 Last Admin: 07/04/19 06:42 Dose: 70 mg Calcium/Vitamin D (Oscal W/Vitamin D) 1 tab PO DAILY [facility] Stop: 09/08/19 08:59 Last Admin: 07/13/19 08:18 Dose: 1 tab Donepezil HCl (Aricept) 10 mg PO HS [facility] Last Admin: 07/12/19 20:46 Dose: 10 mg General: demented, thin, appears younger HEENT: NC/AT, PERRLA, EOMI Neck: Supple, No JVD, No thyromegaly Lungs: CTAB Cardiovascular: RRR, Normal S1, Normal S2, with murmur Abdomen: soft, thin, non-distended, positive bowel sound Extremities: excoriation Neurological: no change Internal Medicine Assmt/Plan - Assessment Assessment: alzheimers dementa elevated chol djd osteoporosis ho old left hip fx - Plan Plan: fall precaution nutritional support cont on calcium supplemetn - resume fosamax will cont to follow dw rn add mvi Nutritional Asmnt/Malnutr-PDOC - Dietary Evaluation Malnutrition Findings (Please click <Entered> for more info): Nutritional Asmnt/Malnutrition Start: 01/04/19 09: 50 Text: Status: Complete Freq: Protocol: Document 01/04/19 14:59 LCHENG (Rec: 01/04/19 15:06 LCHENG [email or web address]) Nutritional Asmnt/Malnutrition Patient General Information Nutritional Screening Moderate Risk Diagnosis psychosis Pertinent Medical Hx/Surgical Hx dementia, DJD, osteoporosis Subjective Information pt seen lying in bed, awake and alert, stated food has beed great. Pt is not a big eater. Encourage to eat balanced meals and pt agreed with it. Per EMR, PO intake 75 -100% Current Diet Order/ Nutrition Support regular Pertinent Medications reviewed Pertinent Labs 12/31 reviewed Nutritional Hx/Data Height 1.65 m Height (Calculated Centimeters) 165.1 Current Weight (lbs) 74.843 kg Weight (Calculated Kilograms) 74.8 Weight (Calculated Grams) 58194.7 [place] Body Weight 125 Body Mass Index (BMI) 27.4 Weight Status Overweight GI Symptoms GI Symptoms None Last BM 01/04 x 2 Difficult in: None Skin Integrity/Comment: intact Current %PO Good (75-100%) Estimated Nutritional Goals BEE in Kcals: Using Current wt Calories/Kcals/Kg 23-27 Kcals Calculated 8759-9026 Protein: Using Current wt Protein g/k.8 Protein Calculated 60 Fluid: ml 1725-1998ml (1ml/kcal) Nutritional Problem No current Nutrition Prob Problem N/A Malnutrition Alert Is there a minimum of two criteria No selected? Query Text:Check all the applicable criteria. A minimum of two criteria are recommended for diagnosis of either severe or non-severe malnutrition. Malnutrition Related to Morbid Obesity Malnutrition related to morbid obesity No Intervention/Recommendation Comments 1. Continue with regular diet as ordered. 2. Monitor PO intake, wt, labs and skin integrity 3. F/U as low risk in 7 days Expected Outcomes/Goals Expected Outcomes/Goals 1. PO intake to meet at least 75% of nutritional needs. 2. Wt stability, skin to remain intact, labs to approach WNL.
--- NOTE | 2019-07-13 21:19 | Progress Notes ---
DATE: 07/13/2019 SUBJECTIVE: Chart was reviewed and the patient interviewed. Also discussed the patient's condition with the staff and reviewed records and labs. The patient is smiling appropriately. She also is interacting more, but in a confused state. The patient also has continued to ask about her discharge date, but no agitation or irritability, when she knew that she is not discharged and cannot be discharged yet. At the same time, Legal pattern continues and the patient is still waiting for her estate planning attorney to get her money in order to be able to go to assisted living facility. At the same time, the patient denies any side effects of medications and continue same treatment and followup. JOB# [id number]
[2019-07-14] MEDS: Calcium Carb/Vit D 500 mg/200 U Tab PO SCH (08:27)
[2019-07-14] MEDS: Multivitamin w/ Minerals Tab PO SCH (08:27)
--- NOTE | 2019-07-14 09:24 | Internal Medicine Prog Note ---
Internal Medicine Subjective - Subjective Patient seen and examined:: with staff, chart reviewed Patient is:: awake, verbal, interactive, ambulating, confused Per staff patient has:: no adverse event, no episodes of fall, eating well, tolerating meds Internal Medicine Objective - Results Recent Labs: Laboratory Last Values POC Glucose 188 MG/DL (70 - 105) H 02/02/19 19:27 Triglycerides 162 mg/dL (<150) H 12/31/18 08:04 Cholesterol 234 mg/dL (<200) H 12/31/18 08:04 LDL Cholesterol Direct 155 mg/dL (75-193) 12/31/18 08:04 HDL Cholesterol 62 mg/dL (23-92) 12/31/18 08:04 - Physical Exam Vitals and I&O: Vital Signs Temp 97.9 F 07/14/19 06:31 Pulse 79 07/14/19 06:31 Resp 20 07/14/19 06:31 BP 118/58 07/14/19 06:31 Pulse Ox 98 07/14/19 06:31 Intake & Output 07/13/19 07/14/19 07/14/19 18:59 06:59 18:59 Intake Total 1200 480 Output Total 1 Balance 1200 479 Intake: Oral 1200 480 Output: Urine/Stool Mix 1 Other: # Voids 1 # Bowel Movements 1 Active Medications: Current Medications Acetaminophen (Tylenol) 650 mg PO Q4H PRN PRN Reason: Pain (Mild 1-3) Stop: 08/07/19 15:57 Last Admin: 06/08/19 16:13 Dose: 650 mg Alendronate Sodium (Fosamax) 70 mg PO We@0630 [facility] Stop: 09/02/19 06:29 Last Admin: 07/04/19 06:42 Dose: 70 mg Calcium/Vitamin D (Oscal W/Vitamin D) 1 tab PO DAILY [facility] Stop: 09/08/19 08:59 Last Admin: 07/14/19 08:27 Dose: 1 tab Donepezil HCl (Aricept) 10 mg PO HS [facility] Last Admin: 07/13/19 21:25 Dose: 10 mg General: demented, thin, appears younger HEENT: NC/AT, PERRLA, EOMI Neck: Supple, No JVD, No thyromegaly Lungs: CTAB Cardiovascular: RRR, Normal S1, Normal S2, with murmur Abdomen: soft, thin, non-distended, positive bowel sound Extremities: excoriation Neurological: no change Internal Medicine Assmt/Plan - Assessment Assessment: alzheimers dementa elevated chol djd osteoporosis ho old left hip fx - Plan Plan: fall precaution nutritional support cont on calcium supplemetn - resume fosamax will cont to follow dw rn add mvi Nutritional Asmnt/Malnutr-PDOC - Dietary Evaluation Malnutrition Findings (Please click <Entered> for more info): Nutritional Asmnt/Malnutrition Start: 01/04/19 09: 50 Text: Status: Complete Freq: Protocol: Document 01/04/19 14:59 LCHENG (Rec: 01/04/19 15:06 LCHENG [email or web address]) Nutritional Asmnt/Malnutrition Patient General Information Nutritional Screening Moderate Risk Diagnosis psychosis Pertinent Medical Hx/Surgical Hx dementia, DJD, osteoporosis Subjective Information pt seen lying in bed, awake and alert, stated food has beed great. Pt is not a big eater. Encourage to eat balanced meals and pt agreed with it. Per EMR, PO intake 75 -100% Current Diet Order/ Nutrition Support regular Pertinent Medications reviewed Pertinent Labs 12/31 reviewed Nutritional Hx/Data Height 1.65 m Height (Calculated Centimeters) 165.1 Current Weight (lbs) 74.843 kg Weight (Calculated Kilograms) 74.8 Weight (Calculated Grams) 92425.7 [place] Body Weight 125 Body Mass Index (BMI) 27.4 Weight Status Overweight GI Symptoms GI Symptoms None Last BM 01/04 x 2 Difficult in: None Skin Integrity/Comment: intact Current %PO Good (75-100%) Estimated Nutritional Goals BEE in Kcals: Using Current wt Calories/Kcals/Kg 23-27 Kcals Calculated 9447-6372 Protein: Using Current wt Protein g/k.8 Protein Calculated 60 Fluid: ml 1725-1998ml (1ml/kcal) Nutritional Problem No current Nutrition Prob Problem N/A Malnutrition Alert Is there a minimum of two criteria No selected? Query Text:Check all the applicable criteria. A minimum of two criteria are recommended for diagnosis of either severe or non-severe malnutrition. Malnutrition Related to Morbid Obesity Malnutrition related to morbid obesity No Intervention/Recommendation Comments 1. Continue with regular diet as ordered. 2. Monitor PO intake, wt, labs and skin integrity 3. F/U as low risk in 7 days Expected Outcomes/Goals Expected Outcomes/Goals 1. PO intake to meet at least 75% of nutritional needs. 2. Wt stability, skin to remain intact, labs to approach WNL.
[2019-07-15] MEDS: Multivitamin w/ Minerals Tab PO SCH (08:30)
[2019-07-15] MEDS: Calcium Carb/Vit D 500 mg/200 U Tab PO SCH (08:30)
--- NOTE | 2019-07-15 09:02 | Internal Medicine Prog Note ---
Internal Medicine Subjective - Subjective Patient seen and examined:: with staff, chart reviewed, other (no adverse events overnight) Patient is:: awake, verbal, interactive, ambulating, confused Per staff patient has:: no adverse event, no episodes of fall, eating well, tolerating meds Internal Medicine Objective - Results Recent Labs: Laboratory Last Values POC Glucose 188 MG/DL (70 - 105) H 02/02/19 19:27 Triglycerides 162 mg/dL (<150) H 12/31/18 08:04 Cholesterol 234 mg/dL (<200) H 12/31/18 08:04 LDL Cholesterol Direct 155 mg/dL (75-193) 12/31/18 08:04 HDL Cholesterol 62 mg/dL (23-92) 12/31/18 08:04 - Physical Exam Vitals and I&O: Vital Signs Temp 98.1 F 07/15/19 06:34 Pulse 80 07/15/19 06:34 Resp 19 07/15/19 06:34 BP 107/76 07/15/19 06:34 Pulse Ox 97 07/15/19 06:34 Intake & Output 07/14/19 07/15/19 07/15/19 18:59 06:59 18:59 Intake Total 1000 120 Balance 1000 120 Intake: Oral 1000 120 Other: # Voids 4 2 # Bowel Movements 1 Active Medications: Current Medications Acetaminophen (Tylenol) 650 mg PO Q4H PRN PRN Reason: Pain (Mild 1-3) Stop: 08/07/19 15:57 Last Admin: 06/08/19 16:13 Dose: 650 mg Alendronate Sodium (Fosamax) 70 mg PO We@0630 [facility] Stop: 09/02/19 06:29 Last Admin: 07/04/19 06:42 Dose: 70 mg Calcium/Vitamin D (Oscal W/Vitamin D) 1 tab PO DAILY [facility] Stop: 09/08/19 08:59 Last Admin: 07/15/19 08:30 Dose: 1 tab Donepezil HCl (Aricept) 10 mg PO [facility] Last Admin: 07/14/19 20:14 Dose: 10 mg General: demented, thin, appears younger HEENT: NC/AT, PERRLA, EOMI Neck: Supple, No JVD, No thyromegaly Lungs: CTAB Cardiovascular: RRR, Normal S1, Normal S2, with murmur Abdomen: soft, thin, non-distended, positive bowel sound Extremities: excoriation Neurological: no change Internal Medicine Assmt/Plan - Assessment Assessment: alzheimers dementa elevated chol djd osteoporosis ho old left hip fx - Plan Plan: fall precaution nutritional support cont on calcium supplemetn - resume fosamax will cont to follow dw rn add mvi Nutritional Asmnt/Malnutr-PDOC - Dietary Evaluation Malnutrition Findings (Please click <Entered> for more info): Nutritional Asmnt/Malnutrition Start: 01/04/19 09: 50 Text: Status: Complete Freq: Protocol: Document 01/04/19 14:59 LCHENG (Rec: 01/04/19 15:06 LCHENG [email or web address]) Nutritional Asmnt/Malnutrition Patient General Information Nutritional Screening Moderate Risk Diagnosis psychosis Pertinent Medical Hx/Surgical Hx dementia, DJD, osteoporosis Subjective Information pt seen lying in bed, awake and alert, stated food has beed great. Pt is not a big eater. Encourage to eat balanced meals and pt agreed with it. Per EMR, PO intake 75 -100% Current Diet Order/ Nutrition Support regular Pertinent Medications reviewed Pertinent Labs 12/31 reviewed Nutritional Hx/Data Height 1.65 m Height (Calculated Centimeters) 165.1 Current Weight (lbs) 74.843 kg Weight (Calculated Kilograms) 74.8 Weight (Calculated Grams) 56632.7 [place] Body Weight 125 Body Mass Index (BMI) 27.4 Weight Status Overweight GI Symptoms GI Symptoms None Last BM 01/04 x 2 Difficult in: None Skin Integrity/Comment: intact Current %PO Good (75-100%) Estimated Nutritional Goals BEE in Kcals: Using Current wt Calories/Kcals/Kg 23-27 Kcals Calculated 6628-9644 Protein: Using Current wt Protein g/k.8 Protein Calculated 60 Fluid: ml 1725-1998ml (1ml/kcal) Nutritional Problem No current Nutrition Prob Problem N/A Malnutrition Alert Is there a minimum of two criteria No selected? Query Text:Check all the applicable criteria. A minimum of two criteria are recommended for diagnosis of either severe or non-severe malnutrition. Malnutrition Related to Morbid Obesity Malnutrition related to morbid obesity No Intervention/Recommendation Comments 1. Continue with regular diet as ordered. 2. Monitor PO intake, wt, labs and skin integrity 3. F/U as low risk in 7 days Expected Outcomes/Goals Expected Outcomes/Goals 1. PO intake to meet at least 75% of nutritional needs. 2. Wt stability, skin to remain intact, labs to approach WNL.
--- NOTE | 2019-07-15 20:11 | Progress Notes ---
DATE: 07/14/2019 PSYCHIATRIC PROGRESS NOTE SUBJECTIVE: Chart reviewed and the patient interviewed. Also discussed the patient's condition with the staff and reviewed records and labs. The patient is still anxious about her discharge date, but she is calm and cooperative. The patient also is trying to interact more and socializing more. The patient denies any intention to harm herself or others. She also presently confused. ASSESSMENT: The patient is confused and considered to be gravely disabled. TREATMENT PLAN: Continue to monitor behavior and condition. Also, continue adjusting psychotropic medications and waiting on discharge plans and placement issue. JOB# [id number]
[2019-07-16] MEDS: Multivitamin w/ Minerals Tab PO SCH (08:32)
[2019-07-16] MEDS: Calcium Carb/Vit D 500 mg/200 U Tab PO SCH (08:32)
--- NOTE | 2019-07-16 10:44 | Progress Notes ---
DATE: CHIEF COMPLAINT: "I am still here." SUBJECTIVE: The patient is still asking about her discharge and still frustrated with her long hospital stay. The patient also is still easily agitated and she is still calm and cooperative. The patient also still has questions about her discharge. Otherwise, no issues or problems in regard to her behavior. ASSESSMENT: The patient is still considered to be gravely disabled. TREATMENT PLAN: Continue to monitor behavior and condition closely. Also, continue adjusting psychotropic medications and work on her discharge plans and placement issue. JOB# [id number]
--- NOTE | 2019-07-16 11:37 | Internal Medicine Prog Note ---
Internal Medicine Subjective - Subjective Patient seen and examined:: with staff, chart reviewed Patient is:: awake, verbal, interactive, ambulating, confused Per staff patient has:: no adverse event, no episodes of fall, eating well, tolerating meds Internal Medicine Objective - Results Recent Labs: Laboratory Last Values POC Glucose 188 MG/DL (70 - 105) H 02/02/19 19:27 Triglycerides 162 mg/dL (<150) H 12/31/18 08:04 Cholesterol 234 mg/dL (<200) H 12/31/18 08:04 LDL Cholesterol Direct 155 mg/dL (75-193) 12/31/18 08:04 HDL Cholesterol 62 mg/dL (23-92) 12/31/18 08:04 - Physical Exam Vitals and I&O: Vital Signs Temp 98.3 F 07/16/19 05:41 Pulse 69 07/16/19 05:41 Resp 20 07/16/19 05:41 BP 116/71 07/16/19 05:41 Pulse Ox 97 07/16/19 05:41 Intake & Output 07/15/19 07/16/19 07/16/19 18:59 06:59 18:59 Intake Total 1080 300 Balance 1080 300 Intake: Oral 1080 300 Other: # Voids 3 0 # Bowel Movements 0 0 Active Medications: Current Medications Acetaminophen (Tylenol) 650 mg PO Q4H PRN PRN Reason: Pain (Mild 1-3) Stop: 08/07/19 15:57 Last Admin: 06/08/19 16:13 Dose: 650 mg Alendronate Sodium (Fosamax) 70 mg PO We@0630 [facility] Stop: 09/02/19 06:29 Last Admin: 07/04/19 06:42 Dose: 70 mg Calcium/Vitamin D (Oscal W/Vitamin D) 1 tab PO DAILY [facility] Stop: 09/08/19 08:59 Last Admin: 07/16/19 08:32 Dose: 1 tab Donepezil HCl (Aricept) 10 mg PO [facility] Last Admin: 07/15/19 21:13 Dose: 10 mg General: demented, thin, appears younger HEENT: NC/AT, PERRLA, EOMI Neck: Supple, No JVD, No thyromegaly Lungs: CTAB Cardiovascular: RRR, Normal S1, Normal S2, with murmur Abdomen: soft, thin, non-distended, positive bowel sound Extremities: excoriation Neurological: no change Internal Medicine Assmt/Plan - Assessment Assessment: alzheimers dementa elevated chol djd osteoporosis ho old left hip fx - Plan Plan: fall precaution nutritional support cont on calcium supplemetn - resume fosamax will cont to follow dw rn add mvi Nutritional Asmnt/Malnutr-PDOC - Dietary Evaluation Malnutrition Findings (Please click <Entered> for more info): Nutritional Asmnt/Malnutrition Start: 01/04/19 09: 50 Text: Status: Complete Freq: Protocol: Document 01/04/19 14:59 LCHENG (Rec: 01/04/19 15:06 LCHENG [email or web address]) Nutritional Asmnt/Malnutrition Patient General Information Nutritional Screening Moderate Risk Diagnosis psychosis Pertinent Medical Hx/Surgical Hx dementia, DJD, osteoporosis Subjective Information pt seen lying in bed, awake and alert, stated food has beed great. Pt is not a big eater. Encourage to eat balanced meals and pt agreed with it. Per EMR, PO intake 75 -100% Current Diet Order/ Nutrition Support regular Pertinent Medications reviewed Pertinent Labs 12/31 reviewed Nutritional Hx/Data Height 1.65 m Height (Calculated Centimeters) 165.1 Current Weight (lbs) 74.843 kg Weight (Calculated Kilograms) 74.8 Weight (Calculated Grams) 76324.7 [place] Body Weight 125 Body Mass Index (BMI) 27.4 Weight Status Overweight GI Symptoms GI Symptoms None Last BM 01/04 x 2 Difficult in: None Skin Integrity/Comment: intact Current %PO Good (75-100%) Estimated Nutritional Goals BEE in Kcals: Using Current wt Calories/Kcals/Kg 23-27 Kcals Calculated 6648-3397 Protein: Using Current wt Protein g/k.8 Protein Calculated 60 Fluid: ml 1725-1998ml (1ml/kcal) Nutritional Problem No current Nutrition Prob Problem N/A Malnutrition Alert Is there a minimum of two criteria No selected? Query Text:Check all the applicable criteria. A minimum of two criteria are recommended for diagnosis of either severe or non-severe malnutrition. Malnutrition Related to Morbid Obesity Malnutrition related to morbid obesity No Intervention/Recommendation Comments 1. Continue with regular diet as ordered. 2. Monitor PO intake, wt, labs and skin integrity 3. F/U as low risk in 7 days Expected Outcomes/Goals Expected Outcomes/Goals 1. PO intake to meet at least 75% of nutritional needs. 2. Wt stability, skin to remain intact, labs to approach WNL.
[2019-07-17] MEDS: Calcium Carb/Vit D 500 mg/200 U Tab PO SCH (08:21)
[2019-07-17] MEDS: Multivitamin w/ Minerals Tab PO SCH (08:21)
--- NOTE | 2019-07-17 14:53 | Internal Medicine Prog Note ---
Internal Medicine Subjective - Subjective Patient seen and examined:: with staff, chart reviewed Patient is:: awake, verbal, interactive, ambulating, confused Per staff patient has:: no adverse event, no episodes of fall, eating well, tolerating meds Internal Medicine Objective - Results Recent Labs: Laboratory Last Values POC Glucose 188 MG/DL (70 - 105) H 02/02/19 19:27 Triglycerides 162 mg/dL (<150) H 12/31/18 08:04 Cholesterol 234 mg/dL (<200) H 12/31/18 08:04 LDL Cholesterol Direct 155 mg/dL (75-193) 12/31/18 08:04 HDL Cholesterol 62 mg/dL (23-92) 12/31/18 08:04 - Physical Exam Vitals and I&O: Vital Signs Temp 97.8 F 07/17/19 06:26 Pulse 61 07/17/19 06:26 Resp 19 07/17/19 06:26 BP 113/64 07/17/19 06:26 Pulse Ox 96 07/17/19 06:26 Intake & Output 07/16/19 07/17/19 07/17/19 18:59 06:59 18:59 Intake Total 980 240 Balance 980 240 Intake: Oral 740 240 Other 240 Other: # Voids 3 2 # Bowel Movements 1 0 Active Medications: Current Medications Acetaminophen (Tylenol) 650 mg PO Q4H PRN PRN Reason: Pain (Mild 1-3) Stop: 08/07/19 15:57 Last Admin: 06/08/19 16:13 Dose: 650 mg Alendronate Sodium (Fosamax) 70 mg PO We@0630 [facility] Stop: 09/02/19 06:29 Last Admin: 07/04/19 06:42 Dose: 70 mg Calcium/Vitamin D (Oscal W/Vitamin D) 1 tab PO DAILY [facility] Stop: 09/08/19 08:59 Last Admin: 07/17/19 08:21 Dose: 1 tab Donepezil HCl (Aricept) 10 mg PO HS [facility] Last Admin: 07/16/19 21:31 Dose: 10 mg General: demented, thin, appears younger HEENT: NC/AT, PERRLA, EOMI Neck: Supple, No JVD, No thyromegaly Lungs: CTAB Cardiovascular: RRR, Normal S1, Normal S2, with murmur Abdomen: soft, thin, non-distended, positive bowel sound Extremities: excoriation Neurological: no change Internal Medicine Assmt/Plan - Assessment Assessment: alzheimers dementa elevated chol djd osteoporosis ho old left hip fx - Plan Plan: fall precaution nutritional support cont on calcium supplemetn - resume fosamax will cont to follow dw rn add mvi Nutritional Asmnt/Malnutr-PDOC - Dietary Evaluation Malnutrition Findings (Please click <Entered> for more info): Nutritional Asmnt/Malnutrition Start: 01/04/19 09: 50 Text: Status: Complete Freq: Protocol: Document 01/04/19 14:59 LCHENG (Rec: 01/04/19 15:06 LCHENG [email or web address]) Nutritional Asmnt/Malnutrition Patient General Information Nutritional Screening Moderate Risk Diagnosis psychosis Pertinent Medical Hx/Surgical Hx dementia, DJD, osteoporosis Subjective Information pt seen lying in bed, awake and alert, stated food has beed great. Pt is not a big eater. Encourage to eat balanced meals and pt agreed with it. Per EMR, PO intake 75 -100% Current Diet Order/ Nutrition Support regular Pertinent Medications reviewed Pertinent Labs 12/31 reviewed Nutritional Hx/Data Height 1.65 m Height (Calculated Centimeters) 165.1 Current Weight (lbs) 74.843 kg Weight (Calculated Kilograms) 74.8 Weight (Calculated Grams) 54520.7 [place] Body Weight 125 Body Mass Index (BMI) 27.4 Weight Status Overweight GI Symptoms GI Symptoms None Last BM 01/04 x 2 Difficult in: None Skin Integrity/Comment: intact Current %PO Good (75-100%) Estimated Nutritional Goals BEE in Kcals: Using Current wt Calories/Kcals/Kg 23-27 Kcals Calculated 5657-1297 Protein: Using Current wt Protein g/k.8 Protein Calculated 60 Fluid: ml 1725-1998ml (1ml/kcal) Nutritional Problem No current Nutrition Prob Problem N/A Malnutrition Alert Is there a minimum of two criteria No selected? Query Text:Check all the applicable criteria. A minimum of two criteria are recommended for diagnosis of either severe or non-severe malnutrition. Malnutrition Related to Morbid Obesity Malnutrition related to morbid obesity No Intervention/Recommendation Comments 1. Continue with regular diet as ordered. 2. Monitor PO intake, wt, labs and skin integrity 3. F/U as low risk in 7 days Expected Outcomes/Goals Expected Outcomes/Goals 1. PO intake to meet at least 75% of nutritional needs. 2. Wt stability, skin to remain intact, labs to approach WNL.
--- NOTE | 2019-07-17 22:25 | Progress Notes ---
DATE: 07/17/2019 SUBJECTIVE: Chart was reviewed and the patient interviewed. Also discussed the patient's condition with the staff and reviewed records and labs. The patient is still anxious and she is still wondering about her discharge date. The patient is also still waiting eagerly for her discharge date. The patient also is interacting more with peers and with others and she is trying to socialize more, but in a confused state. She is still unable to provide any safe plan for self care. ASSESSMENT: The patient is still considered to be gravely disabled. TREATMENT PLAN: Continue to monitor behavior and condition closely. Also waiting for placement issue and conservatorship procedures to be completed. JOB# [id number]
--- NOTE | 2019-07-18 00:02 | Progress Notes ---
DATE: 07/16/2019 DATE OF SERVICE: 07/16/2019 Chart reviewed and the patient interviewed. Also discussed the patient's condition with the staff and reviewed records and labs. The patient is still pleasantly confused. The patient also is still restless and is still moving around the unit being bored for her long hospital stay. The patient is cooperative as regard to her treatment and no behavioral issues. ASSESSMENT: The patient is still slightly confused and still needs close monitoring. TREATMENT PLAN: Continue monitoring her behavior and continue working on her discharge plans. The patient also is still awaiting for legal issues in regard to placement and regard to her conservatorship. JOB# [id number]
--- NOTE | 2019-07-18 08:26 | Progress Notes ---
DATE: 07/18/2019 DATE OF SERVICE: 07/18/2019 SUBJECTIVE: Chart was reviewed and the patient interviewed. Also discussed the patient's condition with the staff and reviewed records and labs. The patient continued to be confused and anxious, but at the same time is cooperative and compliant with her treatment. The patient also is interacting more. Today, it seems that there is slight decline in her personal hygiene. The patient denies any side effects of medications. ASSESSMENT: The patient is still confused and considered to be gravely disabled. TREATMENT PLAN: Continue monitoring her behavior and work on discharge plans and waiting for court to give final arrangement on her placement. JOB# [id number]
[2019-07-18] MEDS: Multivitamin w/ Minerals Tab PO SCH (08:42)
[2019-07-18] MEDS: Calcium Carb/Vit D 500 mg/200 U Tab PO SCH (08:42)
--- NOTE | 2019-07-18 12:41 | Internal Medicine Prog Note ---
Internal Medicine Subjective - Subjective Patient seen and examined:: with staff, chart reviewed Patient is:: awake, verbal, interactive, ambulating, confused Per staff patient has:: no adverse event, no episodes of fall, eating well, tolerating meds Internal Medicine Objective - Results Recent Labs: Laboratory Last Values POC Glucose 188 MG/DL (70 - 105) H 02/02/19 19:27 Triglycerides 162 mg/dL (<150) H 12/31/18 08:04 Cholesterol 234 mg/dL (<200) H 12/31/18 08:04 LDL Cholesterol Direct 155 mg/dL (75-193) 12/31/18 08:04 HDL Cholesterol 62 mg/dL (23-92) 12/31/18 08:04 - Physical Exam Vitals and I&O: Vital Signs Temp 97.9 F 07/18/19 06:24 Pulse 72 07/18/19 06:24 Resp 20 07/18/19 06:24 BP 94/59 07/18/19 06:24 Pulse Ox 100 07/18/19 06:24 Intake & Output 07/17/19 07/18/19 07/18/19 18:59 06:59 18:59 Intake Total 900 240 Balance 900 240 Intake: Oral 900 240 Other: # Voids 4 0 # Bowel Movements 1 0 Active Medications: Current Medications Acetaminophen (Tylenol) 650 mg PO Q4H PRN PRN Reason: Pain (Mild 1-3) Stop: 08/07/19 15:57 Last Admin: 06/08/19 16:13 Dose: 650 mg Alendronate Sodium (Fosamax) 70 mg PO We@0630 [facility] Stop: 09/02/19 06:29 Last Admin: 07/18/19 06:11 Dose: 70 mg Calcium/Vitamin D (Oscal W/Vitamin D) 1 tab PO DAILY [facility] Stop: 09/08/19 08:59 Last Admin: 07/18/19 08:42 Dose: 1 tab Donepezil HCl (Aricept) 10 mg PO [facility] Last Admin: 07/17/19 21:00 Dose: 10 mg General: demented, thin, appears younger HEENT: NC/AT, PERRLA, EOMI Neck: Supple, No JVD, No thyromegaly Lungs: CTAB Cardiovascular: RRR, Normal S1, Normal S2, with murmur Abdomen: soft, thin, non-distended, positive bowel sound Extremities: excoriation Neurological: no change Internal Medicine Assmt/Plan - Assessment Assessment: alzheimers dementa elevated chol djd osteoporosis ho old left hip fx - Plan Plan: fall precaution nutritional support cont on calcium supplemetn - resume fosamax will cont to follow dw rn add mvi Nutritional Asmnt/Malnutr-PDOC - Dietary Evaluation Malnutrition Findings (Please click <Entered> for more info): Nutritional Asmnt/Malnutrition Start: 01/04/19 09: 50 Text: Status: Complete Freq: Protocol: Document 01/04/19 14:59 LCHENG (Rec: 01/04/19 15:06 LCHENG [email or web address]) Nutritional Asmnt/Malnutrition Patient General Information Nutritional Screening Moderate Risk Diagnosis psychosis Pertinent Medical Hx/Surgical Hx dementia, DJD, osteoporosis Subjective Information pt seen lying in bed, awake and alert, stated food has beed great. Pt is not a big eater. Encourage to eat balanced meals and pt agreed with it. Per EMR, PO intake 75 -100% Current Diet Order/ Nutrition Support regular Pertinent Medications reviewed Pertinent Labs 12/31 reviewed Nutritional Hx/Data Height 1.65 m Height (Calculated Centimeters) 165.1 Current Weight (lbs) 74.843 kg Weight (Calculated Kilograms) 74.8 Weight (Calculated Grams) 56778.7 [place] Body Weight 125 Body Mass Index (BMI) 27.4 Weight Status Overweight GI Symptoms GI Symptoms None Last BM 01/04 x 2 Difficult in: None Skin Integrity/Comment: intact Current %PO Good (75-100%) Estimated Nutritional Goals BEE in Kcals: Using Current wt Calories/Kcals/Kg 23-27 Kcals Calculated 6269-6016 Protein: Using Current wt Protein g/k.8 Protein Calculated 60 Fluid: ml 1725-1998ml (1ml/kcal) Nutritional Problem No current Nutrition Prob Problem N/A Malnutrition Alert Is there a minimum of two criteria No selected? Query Text:Check all the applicable criteria. A minimum of two criteria are recommended for diagnosis of either severe or non-severe malnutrition. Malnutrition Related to Morbid Obesity Malnutrition related to morbid obesity No Intervention/Recommendation Comments 1. Continue with regular diet as ordered. 2. Monitor PO intake, wt, labs and skin integrity 3. F/U as low risk in 7 days Expected Outcomes/Goals Expected Outcomes/Goals 1. PO intake to meet at least 75% of nutritional needs. 2. Wt stability, skin to remain intact, labs to approach WNL.
[2019-07-19] MEDS: Calcium Carb/Vit D 500 mg/200 U Tab PO SCH (08:27)
[2019-07-19] MEDS: Multivitamin w/ Minerals Tab PO SCH (08:27)
--- NOTE | 2019-07-19 12:11 | Internal Medicine Prog Note ---
Internal Medicine Subjective - Subjective Patient seen and examined:: with staff, chart reviewed Patient is:: awake, verbal, interactive, ambulating, confused Per staff patient has:: no adverse event, no episodes of fall, eating well, tolerating meds Internal Medicine Objective - Results Recent Labs: Laboratory Last Values POC Glucose 188 MG/DL (70 - 105) H 02/02/19 19:27 Triglycerides 162 mg/dL (<150) H 12/31/18 08:04 Cholesterol 234 mg/dL (<200) H 12/31/18 08:04 LDL Cholesterol Direct 155 mg/dL (75-193) 12/31/18 08:04 HDL Cholesterol 62 mg/dL (23-92) 12/31/18 08:04 - Physical Exam Vitals and I&O: Vital Signs Temp 97 F 07/19/19 06:10 Pulse 72 07/19/19 06:10 Resp 18 07/19/19 08:00 BP 125/80 07/19/19 06:10 Pulse Ox 97 07/19/19 06:10 Intake & Output 07/18/19 07/19/19 07/19/19 18:59 06:59 18:59 Intake Total 120 Balance 120 Intake: Oral 120 Other: # Voids 2 2 # Bowel Movements 1 Active Medications: Current Medications Acetaminophen (Tylenol) 650 mg PO Q4H PRN PRN Reason: Pain (Mild 1-3) Stop: 08/07/19 15:57 Last Admin: 06/08/19 16:13 Dose: 650 mg Alendronate Sodium (Fosamax) 70 mg PO We@0630 [facility] Stop: 09/02/19 06:29 Last Admin: 07/18/19 06:11 Dose: 70 mg Calcium/Vitamin D (Oscal W/Vitamin D) 1 tab PO DAILY [facility] Stop: 09/08/19 08:59 Last Admin: 07/19/19 08:27 Dose: 1 tab Donepezil HCl (Aricept) 10 mg PO HS [facility] Last Admin: 07/18/19 21:23 Dose: 10 mg General: demented, thin, appears younger HEENT: NC/AT, PERRLA, EOMI Neck: Supple, No JVD, No thyromegaly Lungs: CTAB Cardiovascular: RRR, Normal S1, Normal S2, with murmur Abdomen: soft, thin, non-distended, positive bowel sound Extremities: excoriation Neurological: no change Internal Medicine Assmt/Plan - Assessment Assessment: alzheimers dementa elevated chol djd osteoporosis ho old left hip fx - Plan Plan: fall precaution nutritional support cont on calcium supplemetn - resume fosamax will cont to follow dw rn add mvi Nutritional Asmnt/Malnutr-PDOC - Dietary Evaluation Malnutrition Findings (Please click <Entered> for more info): Nutritional Asmnt/Malnutrition Start: 01/04/19 09: 50 Text: Status: Complete Freq: Protocol: Document 01/04/19 14:59 LCHENG (Rec: 01/04/19 15:06 LCHENG [email or web address]) Nutritional Asmnt/Malnutrition Patient General Information Nutritional Screening Moderate Risk Diagnosis psychosis Pertinent Medical Hx/Surgical Hx dementia, DJD, osteoporosis Subjective Information pt seen lying in bed, awake and alert, stated food has beed great. Pt is not a big eater. Encourage to eat balanced meals and pt agreed with it. Per EMR, PO intake 75 -100% Current Diet Order/ Nutrition Support regular Pertinent Medications reviewed Pertinent Labs 12/31 reviewed Nutritional Hx/Data Height 1.65 m Height (Calculated Centimeters) 165.1 Current Weight (lbs) 74.843 kg Weight (Calculated Kilograms) 74.8 Weight (Calculated Grams) 62173.7 [place] Body Weight 125 Body Mass Index (BMI) 27.4 Weight Status Overweight GI Symptoms GI Symptoms None Last BM 01/04 x 2 Difficult in: None Skin Integrity/Comment: intact Current %PO Good (75-100%) Estimated Nutritional Goals BEE in Kcals: Using Current wt Calories/Kcals/Kg 23-27 Kcals Calculated 3516-0533 Protein: Using Current wt Protein g/k.8 Protein Calculated 60 Fluid: ml 1725-1998ml (1ml/kcal) Nutritional Problem No current Nutrition Prob Problem N/A Malnutrition Alert Is there a minimum of two criteria No selected? Query Text:Check all the applicable criteria. A minimum of two criteria are recommended for diagnosis of either severe or non-severe malnutrition. Malnutrition Related to Morbid Obesity Malnutrition related to morbid obesity No Intervention/Recommendation Comments 1. Continue with regular diet as ordered. 2. Monitor PO intake, wt, labs and skin integrity 3. F/U as low risk in 7 days Expected Outcomes/Goals Expected Outcomes/Goals 1. PO intake to meet at least 75% of nutritional needs. 2. Wt stability, skin to remain intact, labs to approach WNL.
--- NOTE | 2019-07-19 15:05 | Progress Notes ---
DATE: 07/19/2019 DATE OF SERVICE: 07/19/2019 SUBJECTIVE: Chart was reviewed and the patient interviewed. Also discussed the patient's condition with the staff and reviewed records and labs. The patient is still anxious about her discharge. The patient also is still asking about her discharge date. Otherwise, no major behavioral problems. The patient also has continued to comply with taking her medications with no side effects of medications. ASSESSMENT: The patient is still considered to be gravely disabled. TREATMENT PLAN: Continue to monitor behavior and condition closely. Also, continue adjusting psychotropic medications and working on behavior and working on her placement issue and the discharge plans. JOB# [id number]
[2019-07-20] MEDS: Multivitamin w/ Minerals Tab PO SCH (08:09)
[2019-07-20] MEDS: Calcium Carb/Vit D 500 mg/200 U Tab PO SCH (08:09)
--- NOTE | 2019-07-20 12:53 | Internal Medicine Prog Note ---
Internal Medicine Subjective - Subjective Patient seen and examined:: with staff, chart reviewed Patient is:: awake, verbal, interactive, ambulating, confused Per staff patient has:: no adverse event, no episodes of fall, eating well, tolerating meds Internal Medicine Objective - Results Recent Labs: Laboratory Last Values POC Glucose 188 MG/DL (70 - 105) H 02/02/19 19:27 Triglycerides 162 mg/dL (<150) H 12/31/18 08:04 Cholesterol 234 mg/dL (<200) H 12/31/18 08:04 LDL Cholesterol Direct 155 mg/dL (75-193) 12/31/18 08:04 HDL Cholesterol 62 mg/dL (23-92) 12/31/18 08:04 - Physical Exam Vitals and I&O: Vital Signs Temp 97.3 F 07/20/19 06:20 Pulse 70 07/20/19 06:20 Resp 18 07/20/19 07:23 BP 120/73 07/20/19 06:20 Pulse Ox 98 07/20/19 06:20 Intake & Output 07/19/19 07/20/19 07/20/19 18:59 06:59 18:59 Intake Total 120 Balance 120 Intake: Oral 120 Other: # Voids 2 2 # Bowel Movements 0 Active Medications: Current Medications Acetaminophen (Tylenol) 650 mg PO Q4H PRN PRN Reason: Pain (Mild 1-3) Stop: 08/07/19 15:57 Last Admin: 06/08/19 16:13 Dose: 650 mg Alendronate Sodium (Fosamax) 70 mg PO We@0630 [facility] Stop: 09/02/19 06:29 Last Admin: 07/18/19 06:11 Dose: 70 mg Calcium/Vitamin D (Oscal W/Vitamin D) 1 tab PO DAILY [facility] Stop: 09/08/19 08:59 Last Admin: 07/20/19 08:09 Dose: 1 tab Donepezil HCl (Aricept) 10 mg PO [facility] Last Admin: 07/19/19 20:15 Dose: 10 mg General: demented, thin, appears younger HEENT: NC/AT, PERRLA, EOMI Neck: Supple, No JVD, No thyromegaly Lungs: CTAB Cardiovascular: RRR, Normal S1, Normal S2, with murmur Abdomen: soft, thin, non-distended, positive bowel sound Extremities: excoriation Neurological: no change Internal Medicine Assmt/Plan - Assessment Assessment: alzheimers dementa elevated chol djd osteoporosis ho old left hip fx - Plan Plan: fall precaution nutritional support cont on calcium supplemetn - resume fosamax will cont to follow dw rn add mvi Nutritional Asmnt/Malnutr-PDOC - Dietary Evaluation Malnutrition Findings (Please click <Entered> for more info): Nutritional Asmnt/Malnutrition Start: 01/04/19 09: 50 Text: Status: Complete Freq: Protocol: Document 01/04/19 14:59 LCHENG (Rec: 01/04/19 15:06 LCHENG [email or web address]) Nutritional Asmnt/Malnutrition Patient General Information Nutritional Screening Moderate Risk Diagnosis psychosis Pertinent Medical Hx/Surgical Hx dementia, DJD, osteoporosis Subjective Information pt seen lying in bed, awake and alert, stated food has beed great. Pt is not a big eater. Encourage to eat balanced meals and pt agreed with it. Per EMR, PO intake 75 -100% Current Diet Order/ Nutrition Support regular Pertinent Medications reviewed Pertinent Labs 12/31 reviewed Nutritional Hx/Data Height 1.65 m Height (Calculated Centimeters) 165.1 Current Weight (lbs) 74.843 kg Weight (Calculated Kilograms) 74.8 Weight (Calculated Grams) 51466.7 [place] Body Weight 125 Body Mass Index (BMI) 27.4 Weight Status Overweight GI Symptoms GI Symptoms None Last BM 01/04 x 2 Difficult in: None Skin Integrity/Comment: intact Current %PO Good (75-100%) Estimated Nutritional Goals BEE in Kcals: Using Current wt Calories/Kcals/Kg 23-27 Kcals Calculated 5221-1021 Protein: Using Current wt Protein g/k.8 Protein Calculated 60 Fluid: ml 1725-1998ml (1ml/kcal) Nutritional Problem No current Nutrition Prob Problem N/A Malnutrition Alert Is there a minimum of two criteria No selected? Query Text:Check all the applicable criteria. A minimum of two criteria are recommended for diagnosis of either severe or non-severe malnutrition. Malnutrition Related to Morbid Obesity Malnutrition related to morbid obesity No Intervention/Recommendation Comments 1. Continue with regular diet as ordered. 2. Monitor PO intake, wt, labs and skin integrity 3. F/U as low risk in 7 days Expected Outcomes/Goals Expected Outcomes/Goals 1. PO intake to meet at least 75% of nutritional needs. 2. Wt stability, skin to remain intact, labs to approach WNL.
[2019-07-21] MEDS: Multivitamin w/ Minerals Tab PO SCH (08:38)
[2019-07-21] MEDS: Calcium Carb/Vit D 500 mg/200 U Tab PO SCH (08:38)
--- NOTE | 2019-07-21 17:24 | Internal Medicine Prog Note ---
Internal Medicine Subjective - Subjective Patient seen and examined:: with staff, chart reviewed Patient is:: awake, verbal, interactive, ambulating, confused Per staff patient has:: no adverse event, no episodes of fall, eating well, tolerating meds Internal Medicine Objective - Results Recent Labs: Laboratory Last Values POC Glucose 188 MG/DL (70 - 105) H 02/02/19 19:27 Triglycerides 162 mg/dL (<150) H 12/31/18 08:04 Cholesterol 234 mg/dL (<200) H 12/31/18 08:04 LDL Cholesterol Direct 155 mg/dL (75-193) 12/31/18 08:04 HDL Cholesterol 62 mg/dL (23-92) 12/31/18 08:04 - Physical Exam Vitals and I&O: Vital Signs Temp 97.2 F 07/21/19 14:00 Pulse 67 07/21/19 14:00 Resp 20 07/21/19 14:00 BP 104/65 07/21/19 14:00 Pulse Ox 98 07/21/19 14:00 Intake & Output 07/20/19 07/21/19 07/21/19 18:59 06:59 18:59 Intake Total 1000 480 Balance 1000 480 Weight (lbs) 59.988 kg Intake: Oral 1000 480 Other: # Voids 4 1 # Bowel Movements 1 Weight Source Bedscale Active Medications: Current Medications Acetaminophen (Tylenol) 650 mg PO Q4H PRN PRN Reason: Pain (Mild 1-3) Stop: 08/07/19 15:57 Last Admin: 06/08/19 16:13 Dose: 650 mg Alendronate Sodium (Fosamax) 70 mg PO We@0630 [facility] Stop: 09/02/19 06:29 Last Admin: 07/18/19 06:11 Dose: 70 mg Calcium/Vitamin D (Oscal W/Vitamin D) 1 tab PO DAILY [facility] Stop: 09/08/19 08:59 Last Admin: 07/21/19 08:38 Dose: 1 tab Donepezil HCl (Aricept) 10 mg PO [facility] Last Admin: 07/20/19 20:23 Dose: 10 mg General: demented, thin, appears younger HEENT: NC/AT, PERRLA, EOMI Neck: Supple, No JVD, No thyromegaly Lungs: CTAB Cardiovascular: RRR, Normal S1, Normal S2, with murmur Abdomen: soft, thin, non-distended, positive bowel sound Extremities: excoriation Neurological: no change Internal Medicine Assmt/Plan - Assessment Assessment: alzheimers dementa elevated chol djd osteoporosis ho old left hip fx - Plan Plan: fall precaution nutritional support cont on calcium supplemetn - resume fosamax will cont to follow dw rn add mvi Nutritional Asmnt/Malnutr-PDOC - Dietary Evaluation Malnutrition Findings (Please click <Entered> for more info): Nutritional Asmnt/Malnutrition Start: 01/04/19 09: 50 Text: Status: Complete Freq: Protocol: Document 01/04/19 14:59 LCHENG (Rec: 01/04/19 15:06 LCHENG [email or web address]) Nutritional Asmnt/Malnutrition Patient General Information Nutritional Screening Moderate Risk Diagnosis psychosis Pertinent Medical Hx/Surgical Hx dementia, DJD, osteoporosis Subjective Information pt seen lying in bed, awake and alert, stated food has beed great. Pt is not a big eater. Encourage to eat balanced meals and pt agreed with it. Per EMR, PO intake 75 -100% Current Diet Order/ Nutrition Support regular Pertinent Medications reviewed Pertinent Labs 12/31 reviewed Nutritional Hx/Data Height 1.65 m Height (Calculated Centimeters) 165.1 Current Weight (lbs) 74.843 kg Weight (Calculated Kilograms) 74.8 Weight (Calculated Grams) 81869.7 [place] Body Weight 125 Body Mass Index (BMI) 27.4 Weight Status Overweight GI Symptoms GI Symptoms None Last BM 01/04 x 2 Difficult in: None Skin Integrity/Comment: intact Current %PO Good (75-100%) Estimated Nutritional Goals BEE in Kcals: Using Current wt Calories/Kcals/Kg 23-27 Kcals Calculated 9362-3647 Protein: Using Current wt Protein g/k.8 Protein Calculated 60 Fluid: ml 1725-1998ml (1ml/kcal) Nutritional Problem No current Nutrition Prob Problem N/A Malnutrition Alert Is there a minimum of two criteria No selected? Query Text:Check all the applicable criteria. A minimum of two criteria are recommended for diagnosis of either severe or non-severe malnutrition. Malnutrition Related to Morbid Obesity Malnutrition related to morbid obesity No Intervention/Recommendation Comments 1. Continue with regular diet as ordered. 2. Monitor PO intake, wt, labs and skin integrity 3. F/U as low risk in 7 days Expected Outcomes/Goals Expected Outcomes/Goals 1. PO intake to meet at least 75% of nutritional needs. 2. Wt stability, skin to remain intact, labs to approach WNL.
[2019-07-22] MEDS: Calcium Carb/Vit D 500 mg/200 U Tab PO SCH (08:43)
[2019-07-22] MEDS: Multivitamin w/ Minerals Tab PO SCH (08:43)
--- NOTE | 2019-07-22 13:13 | Internal Medicine Prog Note ---
Internal Medicine Subjective - Subjective Service Date: 07/22/19 Patient is:: awake, verbal, interactive, ambulating, confused Per staff patient has:: no adverse event, no episodes of fall, eating well, tolerating meds Internal Medicine Objective - Results Recent Labs: Laboratory Last Values POC Glucose 188 MG/DL (70 - 105) H 02/02/19 19:27 Triglycerides 162 mg/dL (<150) H 12/31/18 08:04 Cholesterol 234 mg/dL (<200) H 12/31/18 08:04 LDL Cholesterol Direct 155 mg/dL (75-193) 12/31/18 08:04 HDL Cholesterol 62 mg/dL (23-92) 12/31/18 08:04 - Physical Exam Vitals and I&O: Vital Signs Temp 97.9 F 07/22/19 06:09 Pulse 78 07/22/19 06:09 Resp 18 07/22/19 08:00 BP 119/75 07/22/19 06:09 Pulse Ox 97 07/22/19 06:09 Intake & Output 07/21/19 07/22/19 07/22/19 18:59 06:59 18:59 Intake Total 1000 240 Balance 1000 240 Intake: Oral 1000 240 Other: # Voids 4 2 # Bowel Movements 1 Stool Characteristics Soft Brown Active Medications: Current Medications Acetaminophen (Tylenol) 650 mg PO Q4H PRN PRN Reason: Pain (Mild 1-3) Stop: 08/07/19 15:57 Last Admin: 06/08/19 16:13 Dose: 650 mg Alendronate Sodium (Fosamax) 70 mg PO We@0630 [facility] Stop: 09/02/19 06:29 Last Admin: 07/18/19 06:11 Dose: 70 mg Calcium/Vitamin D (Oscal W/Vitamin D) 1 tab PO DAILY [facility] Stop: 09/08/19 08:59 Last Admin: 07/22/19 08:43 Dose: 1 tab Donepezil HCl (Aricept) 10 mg PO [facility] Last Admin: 07/21/19 20:41 Dose: 10 mg General: demented, thin, appears younger HEENT: NC/AT, PERRLA, EOMI Neck: Supple, No JVD, No thyromegaly Lungs: CTAB Cardiovascular: RRR, Normal S1, Normal S2, with murmur Abdomen: soft, thin, non-distended, positive bowel sound Extremities: excoriation Neurological: no change Internal Medicine Assmt/Plan - Assessment Assessment: alzheimers dementa elevated chol djd osteoporosis - Plan Plan: fall precaution nutritional support cont on calcium supplemetn will cont to follow dw rn add mvi placement ongoing Nutritional Asmnt/Malnutr-PDOC - Dietary Evaluation Malnutrition Findings (Please click <Entered> for more info): Nutritional Asmnt/Malnutrition Start: 01/04/19 09: 50 Text: Status: Complete Freq: Protocol: Document 01/04/19 14:59 LCHENG (Rec: 01/04/19 15:06 LCHENG [email or web address]) Nutritional Asmnt/Malnutrition Patient General Information Nutritional Screening Moderate Risk Diagnosis psychosis Pertinent Medical Hx/Surgical Hx dementia, DJD, osteoporosis Subjective Information pt seen lying in bed, awake and alert, stated food has beed great. Pt is not a big eater. Encourage to eat balanced meals and pt agreed with it. Per EMR, PO intake 75 -100% Current Diet Order/ Nutrition Support regular Pertinent Medications reviewed Pertinent Labs 12/31 reviewed Nutritional Hx/Data Height 5 ft 5 in Height (Calculated Centimeters) 165.1 Current Weight (lbs) 165 lb Weight (Calculated Kilograms) 74.8 Weight (Calculated Grams) 96890.7 [place] Body Weight 125 Body Mass Index (BMI) 27.4 Weight Status Overweight GI Symptoms GI Symptoms None Last BM 01/04 x 2 Difficult in: None Skin Integrity/Comment: intact Current %PO Good (75-100%) Estimated Nutritional Goals BEE in Kcals: Using Current wt Calories/Kcals/Kg 23-27 Kcals Calculated 5606-4957 Protein: Using Current wt Protein g/k.8 Protein Calculated 60 Fluid: ml 1725-1998ml (1ml/kcal) Nutritional Problem No current Nutrition Prob Problem N/A Malnutrition Alert Is there a minimum of two criteria No selected? Query Text:Check all the applicable criteria. A minimum of two criteria are recommended for diagnosis of either severe or non-severe malnutrition. Malnutrition Related to Morbid Obesity Malnutrition related to morbid obesity No Intervention/Recommendation Comments 1. Continue with regular diet as ordered. 2. Monitor PO intake, wt, labs and skin integrity 3. F/U as low risk in 7 days Expected Outcomes/Goals Expected Outcomes/Goals 1. PO intake to meet at least 75% of nutritional needs. 2. Wt stability, skin to remain intact, labs to approach WNL.
--- NOTE | 2019-07-23 00:01 | Progress Notes ---
DATE: 07/20/2019 SUBJECTIVE: Chart was reviewed and the patient interviewed. Also discussed the patient's condition with the staff and reviewed records and labs. The patient is still anxious and is still in a depressed mood. The patient also is still confused and still unable to provide any safe plan for care for herself. She also is still wandering around the unit and interacting more with no behavioral issues. ASSESSMENT: The patient is still considered to be gravely disabled and needs close monitoring. TREATMENT PLAN: Continue to monitor her behavior and her condition closely and continue working on her discharge plans and placement issue. JOB# [id number]
--- NOTE | 2019-07-23 02:18 | Psych Progress Note ---
Psych Progress Note - Intro Date of Progress Note: 07/21/19 - Assessment Assessment: Patient interviewed, case discussed with staff, chart and records were reviewed. Patient is rambling and not making sense. She has been calm but confused and needs redirection. No plan for self care at this time. She is rambling about "a bad rene in halfway." - Vitals, I&O Vitals: Vital Signs - 24 hr 07/22/19 07/22/19 07/22/19 06:09 08:00 14:00 Temp 97.9 F 97.6 F HR 78 65 RR 20 18 19 BP 119/75 109/57 O2 Sat % 97 96 07/22/19 07/22/19 20:00 20:21 Temp 98 F HR 67 RR 20 20 BP 110/72 O2 Sat % 97 - Objective Psych Objective: presents restless, anxious, depressed, constricted, A&O x 1, insight is poor, no SI/HI noted, no AH/VH, limited cooperation - Plan Plan: cont current treatment plan. - Review of Relevant Data Review of Relevant Data: I have reviewed the following items and time jimena (where applicable) has been applied. - Medications Current Medications: Current Medications Acetaminophen (Tylenol) 650 mg PO Q4H PRN PRN Reason: Pain (Mild 1-3) Stop: 08/07/19 15:57 Last Admin: 06/08/19 16:13 Dose: 650 mg Alendronate Sodium (Fosamax) 70 mg PO We@0630 [facility] Stop: 09/02/19 06:29 Last Admin: 07/18/19 06:11 Dose: 70 mg Calcium/Vitamin D (Oscal W/Vitamin D) 1 tab PO DAILY [facility] Stop: 09/08/19 08:59 Last Admin: 07/22/19 08:43 Dose: 1 tab Donepezil HCl (Aricept) 10 mg PO HS [facility] Last Admin: 07/22/19 20:47 Dose: 10 mg
--- NOTE | 2019-07-23 02:22 | Psych Progress Note ---
Psych Progress Note - Intro Date of Progress Note: 07/22/19 - Assessment Assessment: Patient interviewed, case discussed with staff, chart and records were reviewed. Patient is asleep. No suicidal or homicidal thoughts. Remains confused, needs redirection on the unit. She requires staff assistance for basic needs. She has no plan for self care. - Vitals, I&O Vitals: Vital Signs - 24 hr 07/22/19 07/22/19 07/22/19 06:09 08:00 14:00 Temp 97.9 F 97.6 F HR 78 65 RR 20 18 19 BP 119/75 109/57 O2 Sat % 97 96 07/22/19 07/22/19 20:00 20:21 Temp 98 F HR 67 RR 20 20 BP 110/72 O2 Sat % 97 - Objective Psych Objective: presents restless, anxious, depressed, constricted, A&O x 1, insight is poor, no SI/HI noted, no AH/VH, limited cooperation - Plan Plan: cont current treatment plan. - Review of Relevant Data Review of Relevant Data: I have reviewed the following items and time jimena (where applicable) has been applied. - Medications Current Medications: Current Medications Acetaminophen (Tylenol) 650 mg PO Q4H PRN PRN Reason: Pain (Mild 1-3) Stop: 08/07/19 15:57 Last Admin: 06/08/19 16:13 Dose: 650 mg Alendronate Sodium (Fosamax) 70 mg PO We@0630 [facility] Stop: 09/02/19 06:29 Last Admin: 07/18/19 06:11 Dose: 70 mg Calcium/Vitamin D (Oscal W/Vitamin D) 1 tab PO DAILY [facility] Stop: 09/08/19 08:59 Last Admin: 07/22/19 08:43 Dose: 1 tab Donepezil HCl (Aricept) 10 mg PO [facility] Last Admin: 07/22/19 20:47 Dose: 10 mg
[2019-07-23] MEDS: Multivitamin w/ Minerals Tab PO SCH (08:43)
[2019-07-23] MEDS: Calcium Carb/Vit D 500 mg/200 U Tab PO SCH (08:44)
--- NOTE | 2019-07-23 12:47 | Internal Medicine Prog Note ---
Internal Medicine Subjective - Subjective Patient seen and examined:: with staff, chart reviewed Patient is:: awake, verbal, interactive, ambulating, confused Per staff patient has:: no adverse event, no episodes of fall, eating well, tolerating meds Internal Medicine Objective - Results Recent Labs: Laboratory Last Values POC Glucose 188 MG/DL (70 - 105) H 02/02/19 19:27 Triglycerides 162 mg/dL (<150) H 12/31/18 08:04 Cholesterol 234 mg/dL (<200) H 12/31/18 08:04 LDL Cholesterol Direct 155 mg/dL (75-193) 12/31/18 08:04 HDL Cholesterol 62 mg/dL (23-92) 12/31/18 08:04 - Physical Exam Vitals and I&O: Vital Signs Temp 98 F 07/23/19 06:32 Pulse 71 07/23/19 06:32 Resp 18 07/23/19 08:00 BP 103/74 07/23/19 06:32 Pulse Ox 98 07/23/19 06:32 Intake & Output 07/22/19 07/23/19 07/23/19 18:59 06:59 18:59 Intake Total 1100 480 Balance 1100 480 Intake: Oral 740 480 Other 360 Other: # Voids 3 1 # Bowel Movements 1 Stool Characteristics Soft Soft Brown Brown Active Medications: Current Medications Acetaminophen (Tylenol) 650 mg PO Q4H PRN PRN Reason: Pain (Mild 1-3) Stop: 08/07/19 15:57 Last Admin: 06/08/19 16:13 Dose: 650 mg Alendronate Sodium (Fosamax) 70 mg PO We@0630 [facility] Stop: 09/02/19 06:29 Last Admin: 07/18/19 06:11 Dose: 70 mg Calcium/Vitamin D (Oscal W/Vitamin D) 1 tab PO DAILY [facility] Stop: 09/08/19 08:59 Last Admin: 07/23/19 08:44 Dose: 1 tab Donepezil HCl (Aricept) 10 mg PO [facility] Last Admin: 07/22/19 20:47 Dose: 10 mg General: demented, thin, appears younger HEENT: NC/AT, PERRLA, EOMI Neck: Supple, No JVD, No thyromegaly Lungs: CTAB Cardiovascular: RRR, Normal S1, Normal S2, with murmur Abdomen: soft, thin, non-distended, positive bowel sound Extremities: excoriation Neurological: no change Internal Medicine Assmt/Plan - Assessment Assessment: alzheimers dementa elevated chol djd osteoporosis ho old left hip fx - Plan Plan: fall precaution nutritional support cont on calcium supplemetn - resume fosamax will cont to follow dw rn add mvi Nutritional Asmnt/Malnutr-PDOC - Dietary Evaluation Malnutrition Findings (Please click <Entered> for more info): Nutritional Asmnt/Malnutrition Start: 01/04/19 09: 50 Text: Status: Complete Freq: Protocol: Document 01/04/19 14:59 LCHENG (Rec: 01/04/19 15:06 LCHENG [email or web address]) Nutritional Asmnt/Malnutrition Patient General Information Nutritional Screening Moderate Risk Diagnosis psychosis Pertinent Medical Hx/Surgical Hx dementia, DJD, osteoporosis Subjective Information pt seen lying in bed, awake and alert, stated food has beed great. Pt is not a big eater. Encourage to eat balanced meals and pt agreed with it. Per EMR, PO intake 75 -100% Current Diet Order/ Nutrition Support regular Pertinent Medications reviewed Pertinent Labs 12/31 reviewed Nutritional Hx/Data Height 1.65 m Height (Calculated Centimeters) 165.1 Current Weight (lbs) 74.843 kg Weight (Calculated Kilograms) 74.8 Weight (Calculated Grams) 76237.7 [place] Body Weight 125 Body Mass Index (BMI) 27.4 Weight Status Overweight GI Symptoms GI Symptoms None Last BM 01/04 x 2 Difficult in: None Skin Integrity/Comment: intact Current %PO Good (75-100%) Estimated Nutritional Goals BEE in Kcals: Using Current wt Calories/Kcals/Kg 23-27 Kcals Calculated 3502-3151 Protein: Using Current wt Protein g/k.8 Protein Calculated 60 Fluid: ml 1725-1998ml (1ml/kcal) Nutritional Problem No current Nutrition Prob Problem N/A Malnutrition Alert Is there a minimum of two criteria No selected? Query Text:Check all the applicable criteria. A minimum of two criteria are recommended for diagnosis of either severe or non-severe malnutrition. Malnutrition Related to Morbid Obesity Malnutrition related to morbid obesity No Intervention/Recommendation Comments 1. Continue with regular diet as ordered. 2. Monitor PO intake, wt, labs and skin integrity 3. F/U as low risk in 7 days Expected Outcomes/Goals Expected Outcomes/Goals 1. PO intake to meet at least 75% of nutritional needs. 2. Wt stability, skin to remain intact, labs to approach WNL.
--- NOTE | 2019-07-23 21:09 | Progress Notes ---
DATE: 07/23/2019 SUBJECTIVE: The patient in the hospital, remains confused, needing a higher level of prompting, redirection, gravely disabled, at her baseline, pending a safe disposition plan. Medications were reviewed. Awake, alert, in no distress. JOB# [id number]
[2019-07-24] MEDS: Calcium Carb/Vit D 500 mg/200 U Tab PO SCH (08:26)
[2019-07-24] MEDS: Multivitamin w/ Minerals Tab PO SCH (08:26)
--- NOTE | 2019-07-24 12:48 | Internal Medicine Prog Note ---
Internal Medicine Subjective - Subjective Patient seen and examined:: with staff, chart reviewed Patient is:: awake, verbal, interactive, ambulating, confused Per staff patient has:: no adverse event, no episodes of fall, eating well, tolerating meds Internal Medicine Objective - Results Recent Labs: Laboratory Last Values POC Glucose 188 MG/DL (70 - 105) H 02/02/19 19:27 Triglycerides 162 mg/dL (<150) H 12/31/18 08:04 Cholesterol 234 mg/dL (<200) H 12/31/18 08:04 LDL Cholesterol Direct 155 mg/dL (75-193) 12/31/18 08:04 HDL Cholesterol 62 mg/dL (23-92) 12/31/18 08:04 - Physical Exam Vitals and I&O: Vital Signs Temp 97.6 F 07/24/19 06:18 Pulse 70 07/24/19 06:18 Resp 20 07/24/19 06:18 BP 124/77 07/24/19 06:18 Pulse Ox 93 07/24/19 06:18 Intake & Output 07/23/19 07/24/19 07/24/19 18:59 06:59 18:59 Intake Total 1100 240 Balance 1100 240 Intake: Oral 740 240 Other 360 Other: # Voids 3 2 # Bowel Movements 2 Stool Characteristics Soft Brown Active Medications: Current Medications Acetaminophen (Tylenol) 650 mg PO Q4H PRN PRN Reason: Pain (Mild 1-3) Stop: 08/07/19 15:57 Last Admin: 06/08/19 16:13 Dose: 650 mg Alendronate Sodium (Fosamax) 70 mg PO We@0630 [facility] Stop: 09/02/19 06:29 Last Admin: 07/18/19 06:11 Dose: 70 mg Calcium/Vitamin D (Oscal W/Vitamin D) 1 tab PO DAILY [facility] Stop: 09/08/19 08:59 Last Admin: 07/24/19 08:26 Dose: 1 tab Donepezil HCl (Aricept) 10 mg PO [facility] Last Admin: 07/23/19 21:03 Dose: 10 mg General: demented, thin, appears younger HEENT: NC/AT, PERRLA, EOMI Neck: Supple, No JVD, No thyromegaly Lungs: CTAB Cardiovascular: RRR, Normal S1, Normal S2, with murmur Abdomen: soft, thin, non-distended, positive bowel sound Extremities: excoriation Neurological: no change Internal Medicine Assmt/Plan - Assessment Assessment: alzheimers dementa elevated chol djd osteoporosis ho old left hip fx - Plan Plan: fall precaution nutritional support cont on calcium supplemetn - resume fosamax will cont to follow dw rn add mvi Nutritional Asmnt/Malnutr-PDOC - Dietary Evaluation Malnutrition Findings (Please click <Entered> for more info): Nutritional Asmnt/Malnutrition Start: 01/04/19 09: 50 Text: Status: Complete Freq: Protocol: Document 01/04/19 14:59 LCHENG (Rec: 01/04/19 15:06 LCHENG [email or web address]) Nutritional Asmnt/Malnutrition Patient General Information Nutritional Screening Moderate Risk Diagnosis psychosis Pertinent Medical Hx/Surgical Hx dementia, DJD, osteoporosis Subjective Information pt seen lying in bed, awake and alert, stated food has beed great. Pt is not a big eater. Encourage to eat balanced meals and pt agreed with it. Per EMR, PO intake 75 -100% Current Diet Order/ Nutrition Support regular Pertinent Medications reviewed Pertinent Labs 12/31 reviewed Nutritional Hx/Data Height 1.65 m Height (Calculated Centimeters) 165.1 Current Weight (lbs) 74.843 kg Weight (Calculated Kilograms) 74.8 Weight (Calculated Grams) 52385.7 [place] Body Weight 125 Body Mass Index (BMI) 27.4 Weight Status Overweight GI Symptoms GI Symptoms None Last BM 01/04 x 2 Difficult in: None Skin Integrity/Comment: intact Current %PO Good (75-100%) Estimated Nutritional Goals BEE in Kcals: Using Current wt Calories/Kcals/Kg 23-27 Kcals Calculated 7731-6993 Protein: Using Current wt Protein g/k.8 Protein Calculated 60 Fluid: ml 1725-1998ml (1ml/kcal) Nutritional Problem No current Nutrition Prob Problem N/A Malnutrition Alert Is there a minimum of two criteria No selected? Query Text:Check all the applicable criteria. A minimum of two criteria are recommended for diagnosis of either severe or non-severe malnutrition. Malnutrition Related to Morbid Obesity Malnutrition related to morbid obesity No Intervention/Recommendation Comments 1. Continue with regular diet as ordered. 2. Monitor PO intake, wt, labs and skin integrity 3. F/U as low risk in 7 days Expected Outcomes/Goals Expected Outcomes/Goals 1. PO intake to meet at least 75% of nutritional needs. 2. Wt stability, skin to remain intact, labs to approach WNL.
--- NOTE | 2019-07-24 20:22 | Progress Notes ---
DATE: 07/24/2019 SUBJECTIVE: Chart was reviewed and the patient interviewed. Also discussed the patient's condition with the staff and reviewed records and labs. The patient is still anxious about her discharge date, but still no information about her discharge and lead case manager still working on getting her legal issues resolved. The patient also is still anxious, but she is still suspicious and is still paranoid. The patient also has mood swings and she is interacting minimally with others. She also is minimizing. She is also easier to follow directions. ASSESSMENT: The patient is still considered to be gravely disabled. TREATMENT PLAN: Continue to monitor her condition. Continue discharge plans and placement issue. JOB# [id number]
[2019-07-25] MEDS: Multivitamin w/ Minerals Tab PO SCH (08:12)
[2019-07-25] MEDS: Calcium Carb/Vit D 500 mg/200 U Tab PO SCH (08:12)
--- NOTE | 2019-07-25 12:53 | Internal Medicine Prog Note ---
Internal Medicine Subjective - Subjective Patient seen and examined:: with staff, chart reviewed Patient is:: awake, verbal, interactive, ambulating, confused Per staff patient has:: no adverse event, no episodes of fall, eating well, tolerating meds Internal Medicine Objective - Results Recent Labs: Laboratory Last Values POC Glucose 188 MG/DL (70 - 105) H 02/02/19 19:27 Triglycerides 162 mg/dL (<150) H 12/31/18 08:04 Cholesterol 234 mg/dL (<200) H 12/31/18 08:04 LDL Cholesterol Direct 155 mg/dL (75-193) 12/31/18 08:04 HDL Cholesterol 62 mg/dL (23-92) 12/31/18 08:04 - Physical Exam Vitals and I&O: Vital Signs Temp 97.7 F 07/25/19 05:48 Pulse 79 07/25/19 05:48 Resp 18 07/25/19 08:00 BP 125/74 07/25/19 05:48 Pulse Ox 96 07/25/19 05:48 Intake & Output 07/24/19 07/25/19 07/25/19 18:59 06:59 18:59 Intake Total 360 Balance 360 Intake: Oral 360 Other: # Voids 2 3 # Bowel Movements 0 0 Stool Characteristics Soft Soft Brown Brown Active Medications: Current Medications Acetaminophen (Tylenol) 650 mg PO Q4H PRN PRN Reason: Pain (Mild 1-3) Stop: 08/07/19 15:57 Last Admin: 06/08/19 16:13 Dose: 650 mg Alendronate Sodium (Fosamax) 70 mg PO We@0630 [facility] Stop: 09/02/19 06:29 Last Admin: 07/25/19 06:52 Dose: 70 mg Calcium/Vitamin D (Oscal W/Vitamin D) 1 tab PO DAILY [facility] Stop: 09/08/19 08:59 Last Admin: 07/25/19 08:12 Dose: 1 tab Donepezil HCl (Aricept) 10 mg PO HS [facility] Last Admin: 07/24/19 20:44 Dose: 10 mg General: demented, thin, appears younger HEENT: NC/AT, PERRLA, EOMI Neck: Supple, No JVD, No thyromegaly Lungs: CTAB Cardiovascular: RRR, Normal S1, Normal S2, with murmur Abdomen: soft, thin, non-distended, positive bowel sound Extremities: excoriation Neurological: no change Internal Medicine Assmt/Plan - Assessment Assessment: alzheimers dementa elevated chol djd osteoporosis ho old left hip fx - Plan Plan: fall precaution nutritional support cont on calcium supplemetn - resume fosamax will cont to follow dw rn add mvi Nutritional Asmnt/Malnutr-PDOC - Dietary Evaluation Malnutrition Findings (Please click <Entered> for more info): Nutritional Asmnt/Malnutrition Start: 01/04/19 09: 50 Text: Status: Complete Freq: Protocol: Document 01/04/19 14:59 LCHENG (Rec: 01/04/19 15:06 LCHENG [email or web address]) Nutritional Asmnt/Malnutrition Patient General Information Nutritional Screening Moderate Risk Diagnosis psychosis Pertinent Medical Hx/Surgical Hx dementia, DJD, osteoporosis Subjective Information pt seen lying in bed, awake and alert, stated food has beed great. Pt is not a big eater. Encourage to eat balanced meals and pt agreed with it. Per EMR, PO intake 75 -100% Current Diet Order/ Nutrition Support regular Pertinent Medications reviewed Pertinent Labs 12/31 reviewed Nutritional Hx/Data Height 1.65 m Height (Calculated Centimeters) 165.1 Current Weight (lbs) 74.843 kg Weight (Calculated Kilograms) 74.8 Weight (Calculated Grams) 81556.7 [place] Body Weight 125 Body Mass Index (BMI) 27.4 Weight Status Overweight GI Symptoms GI Symptoms None Last BM 01/04 x 2 Difficult in: None Skin Integrity/Comment: intact Current %PO Good (75-100%) Estimated Nutritional Goals BEE in Kcals: Using Current wt Calories/Kcals/Kg 23-27 Kcals Calculated 5656-8555 Protein: Using Current wt Protein g/k.8 Protein Calculated 60 Fluid: ml 1725-1998ml (1ml/kcal) Nutritional Problem No current Nutrition Prob Problem N/A Malnutrition Alert Is there a minimum of two criteria No selected? Query Text:Check all the applicable criteria. A minimum of two criteria are recommended for diagnosis of either severe or non-severe malnutrition. Malnutrition Related to Morbid Obesity Malnutrition related to morbid obesity No Intervention/Recommendation Comments 1. Continue with regular diet as ordered. 2. Monitor PO intake, wt, labs and skin integrity 3. F/U as low risk in 7 days Expected Outcomes/Goals Expected Outcomes/Goals 1. PO intake to meet at least 75% of nutritional needs. 2. Wt stability, skin to remain intact, labs to approach WNL.
--- NOTE | 2019-07-25 19:46 | Progress Notes ---
DATE: 07/25/2019 SUBJECTIVE: Chart was reviewed and the patient interviewed. Also discussed the patient's condition with the staff and reviewed records and labs. The patient's affect is brighter and she seems to be happier because "they have a good birthday for me yesterday." The patient said that some of the staff celebrated her birthday that makes her happy. She is cooperative and she is compliant with her treatment, but she is still confused and forgetful. She also still has difficulty making any safe plan for self-care. ASSESSMENT: The patient is still considered to be gravely disabled. TREATMENT PLAN: Continue monitoring her behavior and her condition close. Also, continue adjusting psychotropic medications and work on behavioral modification. [facility]# [id number]
[2019-07-26] MEDS: Calcium Carb/Vit D 500 mg/200 U Tab PO SCH (08:23)
--- NOTE | 2019-07-26 14:11 | Internal Medicine Prog Note ---
Internal Medicine Subjective - Subjective Patient seen and examined:: with staff, chart reviewed Patient is:: awake, verbal, interactive, ambulating, confused Per staff patient has:: no adverse event, no episodes of fall, eating well, tolerating meds Internal Medicine Objective - Results Recent Labs: Laboratory Last Values POC Glucose 188 MG/DL (70 - 105) H 02/02/19 19:27 Triglycerides 162 mg/dL (<150) H 12/31/18 08:04 Cholesterol 234 mg/dL (<200) H 12/31/18 08:04 LDL Cholesterol Direct 155 mg/dL (75-193) 12/31/18 08:04 HDL Cholesterol 62 mg/dL (23-92) 12/31/18 08:04 - Physical Exam Vitals and I&O: Vital Signs Temp 97.7 F 07/26/19 06:17 Pulse 64 07/26/19 06:17 Resp 18 07/26/19 08:00 BP 120/76 07/26/19 06:17 Pulse Ox 96 07/26/19 06:17 Intake & Output 07/25/19 07/26/19 07/26/19 18:59 06:59 18:59 Intake Total 240 Balance 240 Intake: Oral 240 Other: # Voids 2 # Bowel Movements 0 Stool Characteristics Soft Brown Active Medications: Current Medications Acetaminophen (Tylenol) 650 mg PO Q4H PRN PRN Reason: Pain (Mild 1-3) Stop: 08/07/19 15:57 Last Admin: 06/08/19 16:13 Dose: 650 mg Alendronate Sodium (Fosamax) 70 mg PO We@0630 [facility] Stop: 09/02/19 06:29 Last Admin: 07/25/19 06:52 Dose: 70 mg Calcium/Vitamin D (Oscal W/Vitamin D) 1 tab PO DAILY [facility] Stop: 09/08/19 08:59 Last Admin: 07/26/19 08:23 Dose: 1 tab Donepezil HCl (Aricept) 10 mg PO [facility] Last Admin: 07/25/19 20:57 Dose: 10 mg General: demented, thin, appears younger HEENT: NC/AT, PERRLA, EOMI Neck: Supple, No JVD, No thyromegaly Lungs: CTAB Cardiovascular: RRR, Normal S1, Normal S2, with murmur Abdomen: soft, thin, non-distended, positive bowel sound Extremities: excoriation Neurological: no change Internal Medicine Assmt/Plan - Assessment Assessment: alzheimers dementa elevated chol djd osteoporosis ho old left hip fx - Plan Plan: fall precaution nutritional support cont on calcium supplemetn - resume fosamax will cont to follow dw rn add mvi Nutritional Asmnt/Malnutr-PDOC - Dietary Evaluation Malnutrition Findings (Please click <Entered> for more info): Nutritional Asmnt/Malnutrition Start: 01/04/19 09: 50 Text: Status: Complete Freq: Protocol: Document 01/04/19 14:59 LCHENG (Rec: 01/04/19 15:06 LCHENG [email or web address]) Nutritional Asmnt/Malnutrition Patient General Information Nutritional Screening Moderate Risk Diagnosis psychosis Pertinent Medical Hx/Surgical Hx dementia, DJD, osteoporosis Subjective Information pt seen lying in bed, awake and alert, stated food has beed great. Pt is not a big eater. Encourage to eat balanced meals and pt agreed with it. Per EMR, PO intake 75 -100% Current Diet Order/ Nutrition Support regular Pertinent Medications reviewed Pertinent Labs 12/31 reviewed Nutritional Hx/Data Height 1.65 m Height (Calculated Centimeters) 165.1 Current Weight (lbs) 74.843 kg Weight (Calculated Kilograms) 74.8 Weight (Calculated Grams) 35256.7 [place] Body Weight 125 Body Mass Index (BMI) 27.4 Weight Status Overweight GI Symptoms GI Symptoms None Last BM 01/04 x 2 Difficult in: None Skin Integrity/Comment: intact Current %PO Good (75-100%) Estimated Nutritional Goals BEE in Kcals: Using Current wt Calories/Kcals/Kg 23-27 Kcals Calculated 9558-3371 Protein: Using Current wt Protein g/k.8 Protein Calculated 60 Fluid: ml 1725-1998ml (1ml/kcal) Nutritional Problem No current Nutrition Prob Problem N/A Malnutrition Alert Is there a minimum of two criteria No selected? Query Text:Check all the applicable criteria. A minimum of two criteria are recommended for diagnosis of either severe or non-severe malnutrition. Malnutrition Related to Morbid Obesity Malnutrition related to morbid obesity No Intervention/Recommendation Comments 1. Continue with regular diet as ordered. 2. Monitor PO intake, wt, labs and skin integrity 3. F/U as low risk in 7 days Expected Outcomes/Goals Expected Outcomes/Goals 1. PO intake to meet at least 75% of nutritional needs. 2. Wt stability, skin to remain intact, labs to approach WNL.
--- NOTE | 2019-07-26 21:19 | Progress Notes ---
DATE: 07/26/2019 PSYCHIATRIC PROGRESS NOTE SUBJECTIVE: Chart reviewed and the patient interviewed. Also discussed the patient's condition with the staff and reviewed records and labs. The patient's affect is brighter. The patient is less anxious. The patient also is cooperative and compliant with treatment recommendation. She is still confused, but easy to follow directions. ASSESSMENT: The patient is still considered to be gravely disabled. TREATMENT PLAN: Continue monitoring her behavior and her condition closely. Also, continue working on her placement and discharge plans. JOB# [id number]
[2019-07-27] MEDS: Multivitamin w/ Minerals Tab PO SCH (08:29)
[2019-07-27] MEDS: Calcium Carb/Vit D 500 mg/200 U Tab PO SCH (08:29)
--- NOTE | 2019-07-27 12:33 | Internal Medicine Prog Note ---
Internal Medicine Subjective - Subjective Patient seen and examined:: with staff, chart reviewed Patient is:: awake, verbal, interactive, ambulating, confused Per staff patient has:: no adverse event, no episodes of fall, eating well, tolerating meds Internal Medicine Objective - Results Recent Labs: Laboratory Last Values POC Glucose 188 MG/DL (70 - 105) H 02/02/19 19:27 Triglycerides 162 mg/dL (<150) H 12/31/18 08:04 Cholesterol 234 mg/dL (<200) H 12/31/18 08:04 LDL Cholesterol Direct 155 mg/dL (75-193) 12/31/18 08:04 HDL Cholesterol 62 mg/dL (23-92) 12/31/18 08:04 - Physical Exam Vitals and I&O: Vital Signs Temp 97.1 F 07/27/19 06:23 Pulse 74 07/27/19 06:23 Resp 18 07/27/19 07:58 BP 120/77 07/27/19 06:23 Pulse Ox 95 07/27/19 06:23 Intake & Output 07/26/19 07/27/19 07/27/19 18:59 06:59 18:59 Intake Total 1300 240 Balance 1300 240 Intake: Oral 1300 240 Other: # Voids 3 1 # Bowel Movements 0 0 Active Medications: Current Medications Acetaminophen (Tylenol) 650 mg PO Q4H PRN PRN Reason: Pain (Mild 1-3) Stop: 08/07/19 15:57 Last Admin: 06/08/19 16:13 Dose: 650 mg Alendronate Sodium (Fosamax) 70 mg PO We@0630 [facility] Stop: 09/02/19 06:29 Last Admin: 07/25/19 06:52 Dose: 70 mg Calcium/Vitamin D (Oscal W/Vitamin D) 1 tab PO DAILY [facility] Stop: 09/08/19 08:59 Last Admin: 07/27/19 08:29 Dose: 1 tab Donepezil HCl (Aricept) 10 mg PO [facility] Last Admin: 07/26/19 20:20 Dose: 10 mg General: demented, thin, appears younger HEENT: NC/AT, PERRLA, EOMI Neck: Supple, No JVD, No thyromegaly Lungs: CTAB Cardiovascular: RRR, Normal S1, Normal S2, with murmur Abdomen: soft, thin, non-distended, positive bowel sound Extremities: excoriation Neurological: no change Internal Medicine Assmt/Plan - Assessment Assessment: alzheimers dementa elevated chol djd osteoporosis ho old left hip fx - Plan Plan: fall precaution nutritional support cont on calcium supplemetn - resume fosamax will cont to follow dw rn add mvi Nutritional Asmnt/Malnutr-PDOC - Dietary Evaluation Malnutrition Findings (Please click <Entered> for more info): Nutritional Asmnt/Malnutrition Start: 01/04/19 09: 50 Text: Status: Complete Freq: Protocol: Document 01/04/19 14:59 LCHENG (Rec: 01/04/19 15:06 LCHENG [email or web address]) Nutritional Asmnt/Malnutrition Patient General Information Nutritional Screening Moderate Risk Diagnosis psychosis Pertinent Medical Hx/Surgical Hx dementia, DJD, osteoporosis Subjective Information pt seen lying in bed, awake and alert, stated food has beed great. Pt is not a big eater. Encourage to eat balanced meals and pt agreed with it. Per EMR, PO intake 75 -100% Current Diet Order/ Nutrition Support regular Pertinent Medications reviewed Pertinent Labs 12/31 reviewed Nutritional Hx/Data Height 1.65 m Height (Calculated Centimeters) 165.1 Current Weight (lbs) 74.843 kg Weight (Calculated Kilograms) 74.8 Weight (Calculated Grams) 09374.7 [place] Body Weight 125 Body Mass Index (BMI) 27.4 Weight Status Overweight GI Symptoms GI Symptoms None Last BM 01/04 x 2 Difficult in: None Skin Integrity/Comment: intact Current %PO Good (75-100%) Estimated Nutritional Goals BEE in Kcals: Using Current wt Calories/Kcals/Kg 23-27 Kcals Calculated 4464-2735 Protein: Using Current wt Protein g/k.8 Protein Calculated 60 Fluid: ml 1725-1998ml (1ml/kcal) Nutritional Problem No current Nutrition Prob Problem N/A Malnutrition Alert Is there a minimum of two criteria No selected? Query Text:Check all the applicable criteria. A minimum of two criteria are recommended for diagnosis of either severe or non-severe malnutrition. Malnutrition Related to Morbid Obesity Malnutrition related to morbid obesity No Intervention/Recommendation Comments 1. Continue with regular diet as ordered. 2. Monitor PO intake, wt, labs and skin integrity 3. F/U as low risk in 7 days Expected Outcomes/Goals Expected Outcomes/Goals 1. PO intake to meet at least 75% of nutritional needs. 2. Wt stability, skin to remain intact, labs to approach WNL.
--- NOTE | 2019-07-27 18:57 | Progress Notes ---
DATE: 07/27/2019 SUBJECTIVE: Chart was reviewed and the patient interviewed. Also discussed the patient's condition with the staff and reviewed the records and labs. The patient continued to be calm and cooperative. She is still pleasantly confused and forgetful. The patient also is interacting, slightly more. She denies any hallucinations or delusions, but she is confused and forgetful. Otherwise, no behavioral problems. ASSESSMENT: The patient is still considered to be gravely disabled. TREATMENT PLAN: Continue monitoring her behavior and condition closely. Also, continue adjusting psychotropic medications and also waiting for placement. JOB# [id number]
[2019-07-28] MEDS: Calcium Carb/Vit D 500 mg/200 U Tab PO SCH (08:49)
[2019-07-28] MEDS: Multivitamin w/ Minerals Tab PO SCH (08:49)
--- NOTE | 2019-07-28 14:33 | Internal Medicine Prog Note ---
Internal Medicine Subjective - Subjective Patient seen and examined:: with staff, chart reviewed Patient is:: awake, verbal, interactive, ambulating, confused Per staff patient has:: no adverse event, no episodes of fall, eating well, tolerating meds Internal Medicine Objective - Results Recent Labs: Laboratory Last Values POC Glucose 188 MG/DL (70 - 105) H 02/02/19 19:27 Triglycerides 162 mg/dL (<150) H 12/31/18 08:04 Cholesterol 234 mg/dL (<200) H 12/31/18 08:04 LDL Cholesterol Direct 155 mg/dL (75-193) 12/31/18 08:04 HDL Cholesterol 62 mg/dL (23-92) 12/31/18 08:04 - Physical Exam Vitals and I&O: Vital Signs Temp 98.0 F 07/28/19 14:00 Pulse 58 07/28/19 14:00 Resp 18 07/28/19 14:00 BP 115/67 07/28/19 14:00 Pulse Ox 95 07/28/19 14:00 Intake & Output 07/27/19 07/28/19 07/28/19 18:59 06:59 18:59 Intake Total 480 Balance 480 Intake: Oral 480 Other: # Voids 1 Active Medications: Current Medications Acetaminophen (Tylenol) 650 mg PO Q4H PRN PRN Reason: Pain (Mild 1-3) Stop: 08/07/19 15:57 Last Admin: 06/08/19 16:13 Dose: 650 mg Alendronate Sodium (Fosamax) 70 mg PO We@0630 [facility] Stop: 09/02/19 06:29 Last Admin: 07/25/19 06:52 Dose: 70 mg Calcium/Vitamin D (Oscal W/Vitamin D) 1 tab PO DAILY [facility] Stop: 09/08/19 08:59 Last Admin: 07/28/19 08:49 Dose: 1 tab Donepezil HCl (Aricept) 10 mg PO [facility] Last Admin: 07/27/19 21:07 Dose: 10 mg General: demented, thin, appears younger HEENT: NC/AT, PERRLA, EOMI Neck: Supple, No JVD, No thyromegaly Lungs: CTAB Cardiovascular: RRR, Normal S1, Normal S2, with murmur Abdomen: soft, thin, non-distended, positive bowel sound Extremities: excoriation Neurological: no change Internal Medicine Assmt/Plan - Assessment Assessment: alzheimers dementa elevated chol djd osteoporosis ho old left hip fx - Plan Plan: fall precaution nutritional support cont on calcium supplemetn - resume fosamax will cont to follow dw rn add mvi Nutritional Asmnt/Malnutr-PDOC - Dietary Evaluation Malnutrition Findings (Please click <Entered> for more info): Nutritional Asmnt/Malnutrition Start: 01/04/19 09: 50 Text: Status: Complete Freq: Protocol: Document 01/04/19 14:59 LCHENG (Rec: 01/04/19 15:06 LCHENG [email or web address]) Nutritional Asmnt/Malnutrition Patient General Information Nutritional Screening Moderate Risk Diagnosis psychosis Pertinent Medical Hx/Surgical Hx dementia, DJD, osteoporosis Subjective Information pt seen lying in bed, awake and alert, stated food has beed great. Pt is not a big eater. Encourage to eat balanced meals and pt agreed with it. Per EMR, PO intake 75 -100% Current Diet Order/ Nutrition Support regular Pertinent Medications reviewed Pertinent Labs 12/31 reviewed Nutritional Hx/Data Height 1.65 m Height (Calculated Centimeters) 165.1 Current Weight (lbs) 74.843 kg Weight (Calculated Kilograms) 74.8 Weight (Calculated Grams) 96995.7 [place] Body Weight 125 Body Mass Index (BMI) 27.4 Weight Status Overweight GI Symptoms GI Symptoms None Last BM 01/04 x 2 Difficult in: None Skin Integrity/Comment: intact Current %PO Good (75-100%) Estimated Nutritional Goals BEE in Kcals: Using Current wt Calories/Kcals/Kg 23-27 Kcals Calculated 0330-1761 Protein: Using Current wt Protein g/k.8 Protein Calculated 60 Fluid: ml 1725-1998ml (1ml/kcal) Nutritional Problem No current Nutrition Prob Problem N/A Malnutrition Alert Is there a minimum of two criteria No selected? Query Text:Check all the applicable criteria. A minimum of two criteria are recommended for diagnosis of either severe or non-severe malnutrition. Malnutrition Related to Morbid Obesity Malnutrition related to morbid obesity No Intervention/Recommendation Comments 1. Continue with regular diet as ordered. 2. Monitor PO intake, wt, labs and skin integrity 3. F/U as low risk in 7 days Expected Outcomes/Goals Expected Outcomes/Goals 1. PO intake to meet at least 75% of nutritional needs. 2. Wt stability, skin to remain intact, labs to approach WNL.
--- NOTE | 2019-07-28 15:31 | Progress Notes ---
DATE: 07/28/2019 Case was discussed with staff of the patient, reviewed records. The patient is well known patient as I have seen her many times before covering for Dr. Mason. The patient in general doing the same. She is awaiting placement. She is sleeping well, eating well. No suicidal ideation, no homicidal ideation, no paranoia. She is demented, confused, awaiting placement and we will continue to work with the patient in group therapy, milieu therapy, adjust medication as needed. JOB# [id number]
[2019-07-29] MEDS: Calcium Carb/Vit D 500 mg/200 U Tab PO SCH (08:17)
[2019-07-29] MEDS: Multivitamin w/ Minerals Tab PO SCH (08:18)
--- NOTE | 2019-07-29 14:04 | Internal Medicine Prog Note ---
Internal Medicine Subjective - Subjective Patient seen and examined:: with staff, chart reviewed Patient is:: awake, verbal, interactive, ambulating, confused Per staff patient has:: no adverse event, no episodes of fall, eating well, tolerating meds Internal Medicine Objective - Results Recent Labs: Laboratory Last Values POC Glucose 188 MG/DL (70 - 105) H 02/02/19 19:27 Triglycerides 162 mg/dL (<150) H 12/31/18 08:04 Cholesterol 234 mg/dL (<200) H 12/31/18 08:04 LDL Cholesterol Direct 155 mg/dL (75-193) 12/31/18 08:04 HDL Cholesterol 62 mg/dL (23-92) 12/31/18 08:04 - Physical Exam Vitals and I&O: Vital Signs Temp 97.2 F 07/29/19 06:11 Pulse 73 07/29/19 06:11 Resp 20 07/29/19 06:11 BP 115/76 07/29/19 06:11 Pulse Ox 96 07/29/19 06:11 Intake & Output 07/28/19 07/29/19 07/29/19 18:59 06:59 18:59 Intake Total 1500 240 Balance 1500 240 Intake: Oral 1500 240 Other: # Voids 3 2 # Bowel Movements 0 Active Medications: Current Medications Acetaminophen (Tylenol) 650 mg PO Q4H PRN PRN Reason: Pain (Mild 1-3) Stop: 08/07/19 15:57 Last Admin: 06/08/19 16:13 Dose: 650 mg Alendronate Sodium (Fosamax) 70 mg PO We@0630 [facility] Stop: 09/02/19 06:29 Last Admin: 07/25/19 06:52 Dose: 70 mg Calcium/Vitamin D (Oscal W/Vitamin D) 1 tab PO DAILY [facility] Stop: 09/08/19 08:59 Last Admin: 07/29/19 08:17 Dose: 1 tab Donepezil HCl (Aricept) 10 mg PO [facility] Last Admin: 07/28/19 21:37 Dose: 10 mg General: demented, thin, appears younger HEENT: NC/AT, PERRLA, EOMI Neck: Supple, No JVD, No thyromegaly Lungs: CTAB Cardiovascular: RRR, Normal S1, Normal S2, with murmur Abdomen: soft, thin, non-distended, positive bowel sound Extremities: excoriation Neurological: no change Internal Medicine Assmt/Plan - Assessment Assessment: alzheimers dementa elevated chol djd osteoporosis ho old left hip fx - Plan Plan: fall precaution nutritional support cont on calcium supplemetn - resume fosamax will cont to follow dw rn add mvi Nutritional Asmnt/Malnutr-PDOC - Dietary Evaluation Malnutrition Findings (Please click <Entered> for more info): Nutritional Asmnt/Malnutrition Start: 01/04/19 09: 50 Text: Status: Complete Freq: Protocol: Document 01/04/19 14:59 LCHENG (Rec: 01/04/19 15:06 LCHENG [email or web address]) Nutritional Asmnt/Malnutrition Patient General Information Nutritional Screening Moderate Risk Diagnosis psychosis Pertinent Medical Hx/Surgical Hx dementia, DJD, osteoporosis Subjective Information pt seen lying in bed, awake and alert, stated food has beed great. Pt is not a big eater. Encourage to eat balanced meals and pt agreed with it. Per EMR, PO intake 75 -100% Current Diet Order/ Nutrition Support regular Pertinent Medications reviewed Pertinent Labs 12/31 reviewed Nutritional Hx/Data Height 1.65 m Height (Calculated Centimeters) 165.1 Current Weight (lbs) 74.843 kg Weight (Calculated Kilograms) 74.8 Weight (Calculated Grams) 49722.7 [place] Body Weight 125 Body Mass Index (BMI) 27.4 Weight Status Overweight GI Symptoms GI Symptoms None Last BM 01/04 x 2 Difficult in: None Skin Integrity/Comment: intact Current %PO Good (75-100%) Estimated Nutritional Goals BEE in Kcals: Using Current wt Calories/Kcals/Kg 23-27 Kcals Calculated 3114-7885 Protein: Using Current wt Protein g/k.8 Protein Calculated 60 Fluid: ml 1725-1998ml (1ml/kcal) Nutritional Problem No current Nutrition Prob Problem N/A Malnutrition Alert Is there a minimum of two criteria No selected? Query Text:Check all the applicable criteria. A minimum of two criteria are recommended for diagnosis of either severe or non-severe malnutrition. Malnutrition Related to Morbid Obesity Malnutrition related to morbid obesity No Intervention/Recommendation Comments 1. Continue with regular diet as ordered. 2. Monitor PO intake, wt, labs and skin integrity 3. F/U as low risk in 7 days Expected Outcomes/Goals Expected Outcomes/Goals 1. PO intake to meet at least 75% of nutritional needs. 2. Wt stability, skin to remain intact, labs to approach WNL.
--- NOTE | 2019-07-29 15:43 | Progress Notes ---
DATE: 07/29/2019 Case was discussed with staff of the patient, reviewed records. A well-known case to me. She is doing well, awaiting placement. Sleeping well, eating well. She has been here for a long period of time since 12/2018. No side effects with the medication, no sedation, no nausea, demented, confused. We will continue outpatient group therapy, milieu therapy, adjust medication as needed. [facility]# [id number]
[2019-07-30] MEDS: Calcium Carb/Vit D 500 mg/200 U Tab PO SCH (08:39)
[2019-07-30] MEDS: Multivitamin w/ Minerals Tab PO SCH (08:39)
--- NOTE | 2019-07-30 12:52 | Internal Medicine Prog Note ---
Internal Medicine Subjective - Subjective Patient seen and examined:: with staff, chart reviewed Patient is:: awake, verbal, interactive, ambulating, confused Per staff patient has:: no adverse event, no episodes of fall, eating well, tolerating meds Internal Medicine Objective - Results Recent Labs: Laboratory Last Values POC Glucose 188 MG/DL (70 - 105) H 02/02/19 19:27 Triglycerides 162 mg/dL (<150) H 12/31/18 08:04 Cholesterol 234 mg/dL (<200) H 12/31/18 08:04 LDL Cholesterol Direct 155 mg/dL (75-193) 12/31/18 08:04 HDL Cholesterol 62 mg/dL (23-92) 12/31/18 08:04 - Physical Exam Vitals and I&O: Vital Signs Temp 97.1 F 07/30/19 05:15 Pulse 69 07/30/19 05:15 Resp 18 07/30/19 05:15 BP 122/78 07/30/19 05:15 Pulse Ox 96 07/30/19 05:15 Intake & Output 07/29/19 07/30/19 07/30/19 18:59 06:59 18:59 Intake Total 800 120 Balance 800 120 Intake: Oral 800 120 Other: # Voids 4 3 # Bowel Movements 1 0 Active Medications: Current Medications Acetaminophen (Tylenol) 650 mg PO Q4H PRN PRN Reason: Pain (Mild 1-3) Stop: 08/07/19 15:57 Last Admin: 06/08/19 16:13 Dose: 650 mg Alendronate Sodium (Fosamax) 70 mg PO We@0630 [facility] Stop: 09/02/19 06:29 Last Admin: 07/25/19 06:52 Dose: 70 mg Calcium/Vitamin D (Oscal W/Vitamin D) 1 tab PO DAILY [facility] Stop: 09/08/19 08:59 Last Admin: 07/30/19 08:39 Dose: 1 tab Donepezil HCl (Aricept) 10 mg PO [facility] Last Admin: 07/29/19 21:59 Dose: 10 mg General: demented, thin, appears younger HEENT: NC/AT, PERRLA, EOMI Neck: Supple, No JVD, No thyromegaly Lungs: CTAB Cardiovascular: RRR, Normal S1, Normal S2, with murmur Abdomen: soft, thin, non-distended, positive bowel sound Extremities: excoriation Neurological: no change Internal Medicine Assmt/Plan - Assessment Assessment: alzheimers dementa elevated chol djd osteoporosis ho old left hip fx - Plan Plan: fall precaution nutritional support cont on calcium supplemetn - resume fosamax will cont to follow dw rn add mvi Nutritional Asmnt/Malnutr-PDOC - Dietary Evaluation Malnutrition Findings (Please click <Entered> for more info): Nutritional Asmnt/Malnutrition Start: 01/04/19 09: 50 Text: Status: Complete Freq: Protocol: Document 01/04/19 14:59 LCHENG (Rec: 01/04/19 15:06 LCHENG [email or web address]) Nutritional Asmnt/Malnutrition Patient General Information Nutritional Screening Moderate Risk Diagnosis psychosis Pertinent Medical Hx/Surgical Hx dementia, DJD, osteoporosis Subjective Information pt seen lying in bed, awake and alert, stated food has beed great. Pt is not a big eater. Encourage to eat balanced meals and pt agreed with it. Per EMR, PO intake 75 -100% Current Diet Order/ Nutrition Support regular Pertinent Medications reviewed Pertinent Labs 12/31 reviewed Nutritional Hx/Data Height 1.65 m Height (Calculated Centimeters) 165.1 Current Weight (lbs) 74.843 kg Weight (Calculated Kilograms) 74.8 Weight (Calculated Grams) 35462.7 [place] Body Weight 125 Body Mass Index (BMI) 27.4 Weight Status Overweight GI Symptoms GI Symptoms None Last BM 01/04 x 2 Difficult in: None Skin Integrity/Comment: intact Current %PO Good (75-100%) Estimated Nutritional Goals BEE in Kcals: Using Current wt Calories/Kcals/Kg 23-27 Kcals Calculated 3432-0976 Protein: Using Current wt Protein g/k.8 Protein Calculated 60 Fluid: ml 1725-1998ml (1ml/kcal) Nutritional Problem No current Nutrition Prob Problem N/A Malnutrition Alert Is there a minimum of two criteria No selected? Query Text:Check all the applicable criteria. A minimum of two criteria are recommended for diagnosis of either severe or non-severe malnutrition. Malnutrition Related to Morbid Obesity Malnutrition related to morbid obesity No Intervention/Recommendation Comments 1. Continue with regular diet as ordered. 2. Monitor PO intake, wt, labs and skin integrity 3. F/U as low risk in 7 days Expected Outcomes/Goals Expected Outcomes/Goals 1. PO intake to meet at least 75% of nutritional needs. 2. Wt stability, skin to remain intact, labs to approach WNL.
--- NOTE | 2019-07-30 21:18 | Progress Notes ---
DATE: 07/30/2019 SUBJECTIVE: Chart was reviewed and the patient interviewed. Also discussed the patient's condition with the staff and reviewed records and labs. The patient's affect is brighter. The patient is less depressed and less irritable. She also is cooperative and compliant with taking her medications with no side effects of medications. She also is waiting for placement, but she is still confused and needs redirections and still unable to provide safe plan for self-care. ASSESSMENT: The patient is still considered to be gravely disabled and waiting for placement. TREATMENT PLAN: Continue monitoring her behavior and her condition and continue to work on discharge plans and placement issue. JOB# [id number]
[2019-07-31] MEDS: Multivitamin w/ Minerals Tab PO SCH (08:45)
[2019-07-31] MEDS: Calcium Carb/Vit D 500 mg/200 U Tab PO SCH (08:45)
--- NOTE | 2019-07-31 12:38 | Internal Medicine Prog Note ---
Internal Medicine Subjective - Subjective Patient seen and examined:: with staff, chart reviewed Patient is:: awake, verbal, interactive, ambulating, confused Per staff patient has:: no adverse event, no episodes of fall, eating well, tolerating meds Internal Medicine Objective - Results Recent Labs: Laboratory Last Values POC Glucose 188 MG/DL (70 - 105) H 02/02/19 19:27 Triglycerides 162 mg/dL (<150) H 12/31/18 08:04 Cholesterol 234 mg/dL (<200) H 12/31/18 08:04 LDL Cholesterol Direct 155 mg/dL (75-193) 12/31/18 08:04 HDL Cholesterol 62 mg/dL (23-92) 12/31/18 08:04 - Physical Exam Vitals and I&O: Vital Signs Temp 98.3 F 07/31/19 05:30 Pulse 81 07/31/19 05:30 Resp 20 07/31/19 07:49 BP 115/77 07/31/19 05:30 Pulse Ox 96 07/31/19 05:30 Intake & Output 07/30/19 07/31/19 07/31/19 18:59 06:59 18:59 Intake Total 900 480 Balance 900 480 Intake: Oral 900 480 Other: # Voids 3 1 # Bowel Movements 1 Active Medications: Current Medications Acetaminophen (Tylenol) 650 mg PO Q4H PRN PRN Reason: Pain (Mild 1-3) Stop: 08/07/19 15:57 Last Admin: 06/08/19 16:13 Dose: 650 mg Alendronate Sodium (Fosamax) 70 mg PO We@0630 [facility] Stop: 09/02/19 06:29 Last Admin: 07/25/19 06:52 Dose: 70 mg Calcium/Vitamin D (Oscal W/Vitamin D) 1 tab PO DAILY [facility] Stop: 09/08/19 08:59 Last Admin: 07/31/19 08:45 Dose: 1 tab Donepezil HCl (Aricept) 10 mg PO [facility] Last Admin: 07/30/19 21:19 Dose: 10 mg General: demented, thin, appears younger HEENT: NC/AT, PERRLA, EOMI Neck: Supple, No JVD, No thyromegaly Lungs: CTAB Cardiovascular: RRR, Normal S1, Normal S2, with murmur Abdomen: soft, thin, non-distended, positive bowel sound Extremities: excoriation Neurological: no change Internal Medicine Assmt/Plan - Assessment Assessment: alzheimers dementa elevated chol djd osteoporosis ho old left hip fx - Plan Plan: fall precaution nutritional support cont on calcium supplemetn - resume fosamax will cont to follow dw rn add mvi Nutritional Asmnt/Malnutr-PDOC - Dietary Evaluation Malnutrition Findings (Please click <Entered> for more info): Nutritional Asmnt/Malnutrition Start: 01/04/19 09: 50 Text: Status: Complete Freq: Protocol: Document 01/04/19 14:59 LCHENG (Rec: 01/04/19 15:06 LCHENG [email or web address]) Nutritional Asmnt/Malnutrition Patient General Information Nutritional Screening Moderate Risk Diagnosis psychosis Pertinent Medical Hx/Surgical Hx dementia, DJD, osteoporosis Subjective Information pt seen lying in bed, awake and alert, stated food has beed great. Pt is not a big eater. Encourage to eat balanced meals and pt agreed with it. Per EMR, PO intake 75 -100% Current Diet Order/ Nutrition Support regular Pertinent Medications reviewed Pertinent Labs 12/31 reviewed Nutritional Hx/Data Height 1.65 m Height (Calculated Centimeters) 165.1 Current Weight (lbs) 74.843 kg Weight (Calculated Kilograms) 74.8 Weight (Calculated Grams) 29773.7 [place] Body Weight 125 Body Mass Index (BMI) 27.4 Weight Status Overweight GI Symptoms GI Symptoms None Last BM 01/04 x 2 Difficult in: None Skin Integrity/Comment: intact Current %PO Good (75-100%) Estimated Nutritional Goals BEE in Kcals: Using Current wt Calories/Kcals/Kg 23-27 Kcals Calculated 2619-9116 Protein: Using Current wt Protein g/k.8 Protein Calculated 60 Fluid: ml 1725-1998ml (1ml/kcal) Nutritional Problem No current Nutrition Prob Problem N/A Malnutrition Alert Is there a minimum of two criteria No selected? Query Text:Check all the applicable criteria. A minimum of two criteria are recommended for diagnosis of either severe or non-severe malnutrition. Malnutrition Related to Morbid Obesity Malnutrition related to morbid obesity No Intervention/Recommendation Comments 1. Continue with regular diet as ordered. 2. Monitor PO intake, wt, labs and skin integrity 3. F/U as low risk in 7 days Expected Outcomes/Goals Expected Outcomes/Goals 1. PO intake to meet at least 75% of nutritional needs. 2. Wt stability, skin to remain intact, labs to approach WNL.
--- NOTE | 2019-08-01 02:29 | Progress Notes ---
DATE: 07/31/2019 PSYCHIATRIC PROGRESS NOTE SUBJECTIVE: Chart was reviewed and the patient interviewed. Also discussed the patient's condition with the staff and reviewed records and labs. The patient's affect is brighter. The patient is still confused and forgetful, but at the same time she has no behavioral problems. She is also still frustrated with her long hospital stay, but at the same time the patient is working on her issue with her discharge and placement. Otherwise, the patient is cooperative and is compliant with taking her medications with no side effects of medications. ASSESSMENT: The patient is still considered to be gravely disabled and waiting for placement. TREATMENT PLAN: Continue monitoring behavior and condition closely. Also, continue adjusting psychotropic medications and followup. JOB# [id number]
--- NOTE | 2019-08-01 06:59 | Progress Notes ---
DATE: 08/01/2019 DATE OF SERVICE: 08/01/2019 SUBJECTIVE: Chart was reviewed and the patient interviewed. Also discussed the patient's condition with the staff and reviewed records and labs. The patient is still anxious and is still slightly confused. The patient also is still restless and still has labile affect. ASSESSMENT: The patient is still considered to be gravely disabled and waiting for placement. TREATMENT PLAN: Continue to monitor behavior and condition closely. Also, continue adjusting psychotropic medications and working on placement. JOB# [id number]
[2019-08-01] MEDS: Multivitamin w/ Minerals Tab PO SCH (08:50)
[2019-08-01] MEDS: Calcium Carb/Vit D 500 mg/200 U Tab PO SCH (08:51)
--- NOTE | 2019-08-01 13:00 | Internal Medicine Prog Note ---
Internal Medicine Subjective - Subjective Patient seen and examined:: with staff, chart reviewed Patient is:: awake, verbal, interactive, ambulating, confused Per staff patient has:: no adverse event, no episodes of fall, eating well, tolerating meds Internal Medicine Objective - Results Recent Labs: Laboratory Last Values POC Glucose 188 MG/DL (70 - 105) H 02/02/19 19:27 Triglycerides 162 mg/dL (<150) H 12/31/18 08:04 Cholesterol 234 mg/dL (<200) H 12/31/18 08:04 LDL Cholesterol Direct 155 mg/dL (75-193) 12/31/18 08:04 HDL Cholesterol 62 mg/dL (23-92) 12/31/18 08:04 - Physical Exam Vitals and I&O: Vital Signs Temp 97.6 F 08/01/19 06:43 Pulse 74 08/01/19 06:43 Resp 20 08/01/19 06:43 BP 106/71 08/01/19 06:43 Pulse Ox 96 08/01/19 06:43 Intake & Output 07/31/19 08/01/19 08/01/19 18:59 06:59 18:59 Intake Total 240 Balance 240 Intake: Oral 240 Other: # Voids 2 # Bowel Movements 1 Active Medications: Current Medications Acetaminophen (Tylenol) 650 mg PO Q4H PRN PRN Reason: Pain (Mild 1-3) Stop: 08/07/19 15:57 Last Admin: 06/08/19 16:13 Dose: 650 mg Alendronate Sodium (Fosamax) 70 mg PO We@0630 [facility] Stop: 09/02/19 06:29 Last Admin: 08/01/19 06:13 Dose: 70 mg Calcium/Vitamin D (Oscal W/Vitamin D) 1 tab PO DAILY [facility] Stop: 09/08/19 08:59 Last Admin: 08/01/19 08:51 Dose: 1 tab Donepezil HCl (Aricept) 10 mg PO HS [facility] Last Admin: 07/31/19 21:06 Dose: 10 mg General: demented, thin, appears younger HEENT: NC/AT, PERRLA, EOMI Neck: Supple, No JVD, No thyromegaly Lungs: CTAB Cardiovascular: RRR, Normal S1, Normal S2, with murmur Abdomen: soft, thin, non-distended, positive bowel sound Extremities: excoriation Neurological: no change Internal Medicine Assmt/Plan - Assessment Assessment: alzheimers dementa elevated chol djd osteoporosis ho old left hip fx - Plan Plan: fall precaution nutritional support cont on calcium supplemetn - resume fosamax will cont to follow dw rn add mvi Nutritional Asmnt/Malnutr-PDOC - Dietary Evaluation Malnutrition Findings (Please click <Entered> for more info): Nutritional Asmnt/Malnutrition Start: 01/04/19 09: 50 Text: Status: Complete Freq: Protocol: Document 01/04/19 14:59 LCHENG (Rec: 01/04/19 15:06 LCHENG [email or web address]) Nutritional Asmnt/Malnutrition Patient General Information Nutritional Screening Moderate Risk Diagnosis psychosis Pertinent Medical Hx/Surgical Hx dementia, DJD, osteoporosis Subjective Information pt seen lying in bed, awake and alert, stated food has beed great. Pt is not a big eater. Encourage to eat balanced meals and pt agreed with it. Per EMR, PO intake 75 -100% Current Diet Order/ Nutrition Support regular Pertinent Medications reviewed Pertinent Labs 12/31 reviewed Nutritional Hx/Data Height 1.65 m Height (Calculated Centimeters) 165.1 Current Weight (lbs) 74.843 kg Weight (Calculated Kilograms) 74.8 Weight (Calculated Grams) 09247.7 [place] Body Weight 125 Body Mass Index (BMI) 27.4 Weight Status Overweight GI Symptoms GI Symptoms None Last BM 01/04 x 2 Difficult in: None Skin Integrity/Comment: intact Current %PO Good (75-100%) Estimated Nutritional Goals BEE in Kcals: Using Current wt Calories/Kcals/Kg 23-27 Kcals Calculated 2626-7399 Protein: Using Current wt Protein g/k.8 Protein Calculated 60 Fluid: ml 1725-1998ml (1ml/kcal) Nutritional Problem No current Nutrition Prob Problem N/A Malnutrition Alert Is there a minimum of two criteria No selected? Query Text:Check all the applicable criteria. A minimum of two criteria are recommended for diagnosis of either severe or non-severe malnutrition. Malnutrition Related to Morbid Obesity Malnutrition related to morbid obesity No Intervention/Recommendation Comments 1. Continue with regular diet as ordered. 2. Monitor PO intake, wt, labs and skin integrity 3. F/U as low risk in 7 days Expected Outcomes/Goals Expected Outcomes/Goals 1. PO intake to meet at least 75% of nutritional needs. 2. Wt stability, skin to remain intact, labs to approach WNL.
--- NOTE | 2019-08-02 07:25 | Progress Notes ---
DATE: 08/02/2019 SUBJECTIVE: Chart was reviewed and the patient interviewed. Also discussed the patient's condition with the staff and reviewed records and labs. The patient is still anxious and is still in a depressed mood. The patient also is still pleasantly confused and wandering around the unit. The patient also has been compliant with taking her medications. She denies any side effects of medications. ASSESSMENT: The patient is still considered to be gravely disabled. TREATMENT PLAN: We will continue current treatment and current medications. Also, continue to work on her ineffective coping and confusion as well as continue to work on her discharge plans and placement issue. JOB# [id number]
[2019-08-02] MEDS: Multivitamin w/ Minerals Tab PO SCH (08:26)
[2019-08-02] MEDS: Calcium Carb/Vit D 500 mg/200 U Tab PO SCH (08:26)
--- NOTE | 2019-08-02 13:00 | Internal Medicine Prog Note ---
Internal Medicine Subjective - Subjective Patient seen and examined:: with staff, chart reviewed Patient is:: awake, verbal, interactive, ambulating, confused Per staff patient has:: no adverse event, no episodes of fall, eating well, tolerating meds Internal Medicine Objective - Results Recent Labs: Laboratory Last Values POC Glucose 188 MG/DL (70 - 105) H 02/02/19 19:27 Triglycerides 162 mg/dL (<150) H 12/31/18 08:04 Cholesterol 234 mg/dL (<200) H 12/31/18 08:04 LDL Cholesterol Direct 155 mg/dL (75-193) 12/31/18 08:04 HDL Cholesterol 62 mg/dL (23-92) 12/31/18 08:04 - Physical Exam Vitals and I&O: Vital Signs Temp 98.4 F 08/02/19 05:34 Pulse 82 08/02/19 05:34 Resp 18 08/02/19 05:34 BP 127/80 08/02/19 05:34 Pulse Ox 98 08/02/19 05:34 Intake & Output 08/01/19 08/02/19 08/02/19 18:59 06:59 18:59 Intake Total 600 240 Balance 600 240 Intake: Oral 600 240 Other: # Voids 3 2 # Bowel Movements 0 0 Active Medications: Current Medications Acetaminophen (Tylenol) 650 mg PO Q4H PRN PRN Reason: Pain (Mild 1-3) Stop: 08/07/19 15:57 Last Admin: 06/08/19 16:13 Dose: 650 mg Alendronate Sodium (Fosamax) 70 mg PO We@0630 [facility] Stop: 09/02/19 06:29 Last Admin: 08/01/19 06:13 Dose: 70 mg Calcium/Vitamin D (Oscal W/Vitamin D) 1 tab PO DAILY [facility] Stop: 09/08/19 08:59 Last Admin: 08/02/19 08:26 Dose: 1 tab Donepezil HCl (Aricept) 10 mg PO [facility] Last Admin: 08/01/19 20:51 Dose: 10 mg General: demented, thin, appears younger HEENT: NC/AT, PERRLA, EOMI Neck: Supple, No JVD, No thyromegaly Lungs: CTAB Cardiovascular: RRR, Normal S1, Normal S2, with murmur Abdomen: soft, thin, non-distended, positive bowel sound Extremities: excoriation Neurological: no change Internal Medicine Assmt/Plan - Assessment Assessment: alzheimers dementa elevated chol djd osteoporosis ho old left hip fx - Plan Plan: fall precaution nutritional support cont on calcium supplemetn - resume fosamax will cont to follow dw rn add mvi Nutritional Asmnt/Malnutr-PDOC - Dietary Evaluation Malnutrition Findings (Please click <Entered> for more info): Nutritional Asmnt/Malnutrition Start: 01/04/19 09: 50 Text: Status: Complete Freq: Protocol: Document 01/04/19 14:59 LCHENG (Rec: 01/04/19 15:06 LCHENG [email or web address]) Nutritional Asmnt/Malnutrition Patient General Information Nutritional Screening Moderate Risk Diagnosis psychosis Pertinent Medical Hx/Surgical Hx dementia, DJD, osteoporosis Subjective Information pt seen lying in bed, awake and alert, stated food has beed great. Pt is not a big eater. Encourage to eat balanced meals and pt agreed with it. Per EMR, PO intake 75 -100% Current Diet Order/ Nutrition Support regular Pertinent Medications reviewed Pertinent Labs 12/31 reviewed Nutritional Hx/Data Height 1.65 m Height (Calculated Centimeters) 165.1 Current Weight (lbs) 74.843 kg Weight (Calculated Kilograms) 74.8 Weight (Calculated Grams) 64255.7 [place] Body Weight 125 Body Mass Index (BMI) 27.4 Weight Status Overweight GI Symptoms GI Symptoms None Last BM 01/04 x 2 Difficult in: None Skin Integrity/Comment: intact Current %PO Good (75-100%) Estimated Nutritional Goals BEE in Kcals: Using Current wt Calories/Kcals/Kg 23-27 Kcals Calculated 2428-9575 Protein: Using Current wt Protein g/k.8 Protein Calculated 60 Fluid: ml 1725-1998ml (1ml/kcal) Nutritional Problem No current Nutrition Prob Problem N/A Malnutrition Alert Is there a minimum of two criteria No selected? Query Text:Check all the applicable criteria. A minimum of two criteria are recommended for diagnosis of either severe or non-severe malnutrition. Malnutrition Related to Morbid Obesity Malnutrition related to morbid obesity No Intervention/Recommendation Comments 1. Continue with regular diet as ordered. 2. Monitor PO intake, wt, labs and skin integrity 3. F/U as low risk in 7 days Expected Outcomes/Goals Expected Outcomes/Goals 1. PO intake to meet at least 75% of nutritional needs. 2. Wt stability, skin to remain intact, labs to approach WNL.
[2019-08-03] MEDS: Calcium Carb/Vit D 500 mg/200 U Tab PO SCH (08:49)
[2019-08-03] MEDS: Multivitamin w/ Minerals Tab PO SCH (08:50)
--- NOTE | 2019-08-03 12:55 | Internal Medicine Prog Note ---
Internal Medicine Subjective - Subjective Patient seen and examined:: with staff, chart reviewed Patient is:: awake, verbal, interactive, ambulating, confused Per staff patient has:: no adverse event, no episodes of fall, eating well, tolerating meds Internal Medicine Objective - Results Recent Labs: Laboratory Last Values POC Glucose 188 MG/DL (70 - 105) H 02/02/19 19:27 Triglycerides 162 mg/dL (<150) H 12/31/18 08:04 Cholesterol 234 mg/dL (<200) H 12/31/18 08:04 LDL Cholesterol Direct 155 mg/dL (75-193) 12/31/18 08:04 HDL Cholesterol 62 mg/dL (23-92) 12/31/18 08:04 - Physical Exam Vitals and I&O: Vital Signs Temp 98.4 F 08/03/19 06:49 Pulse 68 08/03/19 06:49 Resp 18 08/03/19 06:49 BP 130/76 08/03/19 06:49 Pulse Ox 98 08/03/19 06:49 Intake & Output 08/02/19 08/03/19 08/03/19 18:59 06:59 18:59 Intake Total 1200 240 Balance 1200 240 Intake: Oral 1200 240 Other: # Voids 2 # Bowel Movements 1 0 Active Medications: Current Medications Acetaminophen (Tylenol) 650 mg PO Q4H PRN PRN Reason: Pain (Mild 1-3) Stop: 08/07/19 15:57 Last Admin: 06/08/19 16:13 Dose: 650 mg Alendronate Sodium (Fosamax) 70 mg PO We@0630 [facility] Stop: 09/02/19 06:29 Last Admin: 08/01/19 06:13 Dose: 70 mg Calcium/Vitamin D (Oscal W/Vitamin D) 1 tab PO DAILY [facility] Stop: 09/08/19 08:59 Last Admin: 08/03/19 08:49 Dose: 1 tab Donepezil HCl (Aricept) 10 mg PO [facility] Last Admin: 08/02/19 21:39 Dose: 10 mg General: demented, thin, appears younger HEENT: NC/AT, PERRLA, EOMI Neck: Supple, No JVD, No thyromegaly Lungs: CTAB Cardiovascular: RRR, Normal S1, Normal S2, with murmur Abdomen: soft, thin, non-distended, positive bowel sound Extremities: excoriation Neurological: no change Internal Medicine Assmt/Plan - Assessment Assessment: alzheimers dementa elevated chol djd osteoporosis ho old left hip fx - Plan Plan: fall precaution nutritional support cont on calcium supplemetn - resume fosamax will cont to follow dw rn add mvi Nutritional Asmnt/Malnutr-PDOC - Dietary Evaluation Malnutrition Findings (Please click <Entered> for more info): Nutritional Asmnt/Malnutrition Start: 01/04/19 09: 50 Text: Status: Complete Freq: Protocol: Document 01/04/19 14:59 LCHENG (Rec: 01/04/19 15:06 LCHENG [email or web address]) Nutritional Asmnt/Malnutrition Patient General Information Nutritional Screening Moderate Risk Diagnosis psychosis Pertinent Medical Hx/Surgical Hx dementia, DJD, osteoporosis Subjective Information pt seen lying in bed, awake and alert, stated food has beed great. Pt is not a big eater. Encourage to eat balanced meals and pt agreed with it. Per EMR, PO intake 75 -100% Current Diet Order/ Nutrition Support regular Pertinent Medications reviewed Pertinent Labs 12/31 reviewed Nutritional Hx/Data Height 1.65 m Height (Calculated Centimeters) 165.1 Current Weight (lbs) 74.843 kg Weight (Calculated Kilograms) 74.8 Weight (Calculated Grams) 02791.7 [place] Body Weight 125 Body Mass Index (BMI) 27.4 Weight Status Overweight GI Symptoms GI Symptoms None Last BM 01/04 x 2 Difficult in: None Skin Integrity/Comment: intact Current %PO Good (75-100%) Estimated Nutritional Goals BEE in Kcals: Using Current wt Calories/Kcals/Kg 23-27 Kcals Calculated 2520-3202 Protein: Using Current wt Protein g/k.8 Protein Calculated 60 Fluid: ml 1725-1998ml (1ml/kcal) Nutritional Problem No current Nutrition Prob Problem N/A Malnutrition Alert Is there a minimum of two criteria No selected? Query Text:Check all the applicable criteria. A minimum of two criteria are recommended for diagnosis of either severe or non-severe malnutrition. Malnutrition Related to Morbid Obesity Malnutrition related to morbid obesity No Intervention/Recommendation Comments 1. Continue with regular diet as ordered. 2. Monitor PO intake, wt, labs and skin integrity 3. F/U as low risk in 7 days Expected Outcomes/Goals Expected Outcomes/Goals 1. PO intake to meet at least 75% of nutritional needs. 2. Wt stability, skin to remain intact, labs to approach WNL.
--- NOTE | 2019-08-04 07:17 | Progress Notes ---
DATE: 08/03/2019 Case was discussed with staff of the patient, reviewed records. The patient continues to do the same. She is a well-known patient ,saw her many times covering for Dr. Mason. She is sleeping well, eating well. Awaiting placement. No side effects with the medication, no sedation, no nausea, no extrapyramidal symptoms. We will continue outpatient group therapy, milieu therapy, and adjust medications as needed. JOB# [id number] [email or web address]
[2019-08-04] MEDS: Calcium Carb/Vit D 500 mg/200 U Tab PO SCH (08:39)
[2019-08-04] MEDS: Multivitamin w/ Minerals Tab PO SCH (08:39)
--- NOTE | 2019-08-04 11:30 | Internal Medicine Prog Note ---
Internal Medicine Subjective - Subjective Service Date: 08/04/19 Patient is:: awake, verbal, interactive, ambulating, confused Per staff patient has:: no adverse event, no episodes of fall, eating well, tolerating meds Internal Medicine Objective - Results Recent Labs: Laboratory Last Values POC Glucose 188 MG/DL (70 - 105) H 02/02/19 19:27 Triglycerides 162 mg/dL (<150) H 12/31/18 08:04 Cholesterol 234 mg/dL (<200) H 12/31/18 08:04 LDL Cholesterol Direct 155 mg/dL (75-193) 12/31/18 08:04 HDL Cholesterol 62 mg/dL (23-92) 12/31/18 08:04 - Physical Exam Vitals and I&O: Vital Signs Temp 97.4 F 08/04/19 06:20 Pulse 77 08/04/19 06:20 Resp 20 08/04/19 06:20 BP 110/70 08/04/19 06:20 Pulse Ox 99 08/04/19 06:20 Intake & Output 08/03/19 08/04/19 08/04/19 18:59 06:59 18:59 Intake Total 1000 300 Balance 1000 300 Intake: Oral 1000 300 Other: # Voids 5 0 # Bowel Movements 1 0 Active Medications: Current Medications Acetaminophen (Tylenol) 650 mg PO Q4H PRN PRN Reason: Pain (Mild 1-3) Stop: 08/07/19 15:57 Last Admin: 06/08/19 16:13 Dose: 650 mg Alendronate Sodium (Fosamax) 70 mg PO We@0630 [facility] Stop: 09/02/19 06:29 Last Admin: 08/01/19 06:13 Dose: 70 mg Calcium/Vitamin D (Oscal W/Vitamin D) 1 tab PO DAILY [facility] Stop: 09/08/19 08:59 Last Admin: 08/04/19 08:39 Dose: 1 tab Donepezil HCl (Aricept) 10 mg PO [facility] Last Admin: 08/03/19 20:35 Dose: 10 mg General: demented, thin, appears younger HEENT: NC/AT, PERRLA, EOMI Neck: Supple, No JVD, No thyromegaly Lungs: CTAB Cardiovascular: RRR, Normal S1, Normal S2, with murmur Abdomen: soft, thin, non-distended, positive bowel sound Extremities: excoriation Neurological: no change Internal Medicine Assmt/Plan - Assessment Assessment: alzheimers dementa elevated chol djd osteoporosis - Plan Plan: fall precaution nutritional support cont on calcium supplemetn will cont to follow dw rn add mvi placement ongoing Nutritional Asmnt/Malnutr-PDOC - Dietary Evaluation Malnutrition Findings (Please click <Entered> for more info): Nutritional Asmnt/Malnutrition Start: 01/04/19 09: 50 Text: Status: Complete Freq: Protocol: Document 01/04/19 14:59 LCHENG (Rec: 01/04/19 15:06 LCHENG [email or web address]) Nutritional Asmnt/Malnutrition Patient General Information Nutritional Screening Moderate Risk Diagnosis psychosis Pertinent Medical Hx/Surgical Hx dementia, DJD, osteoporosis Subjective Information pt seen lying in bed, awake and alert, stated food has beed great. Pt is not a big eater. Encourage to eat balanced meals and pt agreed with it. Per EMR, PO intake 75 -100% Current Diet Order/ Nutrition Support regular Pertinent Medications reviewed Pertinent Labs 12/31 reviewed Nutritional Hx/Data Height 5 ft 5 in Height (Calculated Centimeters) 165.1 Current Weight (lbs) 165 lb Weight (Calculated Kilograms) 74.8 Weight (Calculated Grams) 88932.7 [place] Body Weight 125 Body Mass Index (BMI) 27.4 Weight Status Overweight GI Symptoms GI Symptoms None Last BM 01/04 x 2 Difficult in: None Skin Integrity/Comment: intact Current %PO Good (75-100%) Estimated Nutritional Goals BEE in Kcals: Using Current wt Calories/Kcals/Kg 23-27 Kcals Calculated 7330-8067 Protein: Using Current wt Protein g/k.8 Protein Calculated 60 Fluid: ml 1725-1998ml (1ml/kcal) Nutritional Problem No current Nutrition Prob Problem N/A Malnutrition Alert Is there a minimum of two criteria No selected? Query Text:Check all the applicable criteria. A minimum of two criteria are recommended for diagnosis of either severe or non-severe malnutrition. Malnutrition Related to Morbid Obesity Malnutrition related to morbid obesity No Intervention/Recommendation Comments 1. Continue with regular diet as ordered. 2. Monitor PO intake, wt, labs and skin integrity 3. F/U as low risk in 7 days Expected Outcomes/Goals Expected Outcomes/Goals 1. PO intake to meet at least 75% of nutritional needs. 2. Wt stability, skin to remain intact, labs to approach WNL.
--- NOTE | 2019-08-04 23:15 | Progress Notes ---
DATE: 08/04/2019 SUBJECTIVE: No acute events reported overnight, doing well, eating well. EXAMINATION: Stable from last visit. ASSESSMENT AND PLAN: No complications. Awaiting for placement. PSYCHIATRIC# [id number]
--- NOTE | 2019-08-05 08:05 | Progress Notes ---
DATE: 08/05/2019 SUBJECTIVE: No acute events overnight. No chest pains, no palpitations noted by the patient. MENTAL STATUS EXAMINATION: Stable from last visit. ASSESSMENT AND PLAN: Schizophrenia and dementia, awaiting placement. JOB# [id number]
[2019-08-05] MEDS: Multivitamin w/ Minerals Tab PO SCH (08:07)
[2019-08-05] MEDS: Calcium Carb/Vit D 500 mg/200 U Tab PO SCH (08:07)
--- NOTE | 2019-08-05 13:20 | Internal Medicine Prog Note ---
Internal Medicine Subjective - Subjective Service Date: 08/05/19 Patient is:: awake, verbal, interactive, ambulating, confused Per staff patient has:: no adverse event, no episodes of fall, eating well, tolerating meds Internal Medicine Objective - Results Recent Labs: Laboratory Last Values POC Glucose 188 MG/DL (70 - 105) H 02/02/19 19:27 Triglycerides 162 mg/dL (<150) H 12/31/18 08:04 Cholesterol 234 mg/dL (<200) H 12/31/18 08:04 LDL Cholesterol Direct 155 mg/dL (75-193) 12/31/18 08:04 HDL Cholesterol 62 mg/dL (23-92) 12/31/18 08:04 - Physical Exam Vitals and I&O: Vital Signs Temp 97.5 F 08/05/19 05:51 Pulse 81 08/05/19 05:51 Resp 19 08/05/19 08:00 BP 120/78 08/05/19 05:51 Pulse Ox 99 08/05/19 05:51 Intake & Output 08/04/19 08/05/19 08/05/19 18:59 06:59 18:59 Intake Total 240 Balance 240 Intake: Oral 240 Other: # Voids 2 Active Medications: Current Medications Acetaminophen (Tylenol) 650 mg PO Q4H PRN PRN Reason: Pain (Mild 1-3) Stop: 08/07/19 15:57 Last Admin: 06/08/19 16:13 Dose: 650 mg Alendronate Sodium (Fosamax) 70 mg PO We@0630 [facility] Stop: 09/02/19 06:29 Last Admin: 08/01/19 06:13 Dose: 70 mg Calcium/Vitamin D (Oscal W/Vitamin D) 1 tab PO DAILY [facility] Stop: 09/08/19 08:59 Last Admin: 08/05/19 08:07 Dose: 1 tab Donepezil HCl (Aricept) 10 mg PO [facility] Last Admin: 08/04/19 20:39 Dose: 10 mg General: demented, thin HEENT: NC/AT, PERRLA, EOMI Neck: Supple, No JVD, No thyromegaly Lungs: CTAB Cardiovascular: RRR, Normal S1, Normal S2, with murmur Abdomen: soft, thin, non-distended, positive bowel sound Extremities: excoriation Neurological: no change Internal Medicine Assmt/Plan - Assessment Assessment: alzheimers dementa elevated chol djd osteoporosis - Plan Plan: fall precaution nutritional support cont on calcium supplemetn will cont to follow dw rn add mvi placement ongoing Nutritional Asmnt/Malnutr-PDOC - Dietary Evaluation Malnutrition Findings (Please click <Entered> for more info): Nutritional Asmnt/Malnutrition Start: 01/04/19 09: 50 Text: Status: Complete Freq: Protocol: Document 01/04/19 14:59 [email or web address] (Rec: 01/04/19 15:06 LCHENG [email or web address]) Nutritional Asmnt/Malnutrition Patient General Information Nutritional Screening Moderate Risk Diagnosis psychosis Pertinent Medical Hx/Surgical Hx dementia, DJD, osteoporosis Subjective Information pt seen lying in bed, awake and alert, stated food has beed great. Pt is not a big eater. Encourage to eat balanced meals and pt agreed with it. Per EMR, PO intake 75 -100% Current Diet Order/ Nutrition Support regular Pertinent Medications reviewed Pertinent Labs / reviewed Nutritional Hx/Data Height 5 ft 5 in Height (Calculated Centimeters) 165.1 Current Weight (lbs) 165 lb Weight (Calculated Kilograms) 74.8 Weight (Calculated Grams) 98490.7 [place] Body Weight 125 Body Mass Index (BMI) 27.4 Weight Status Overweight GI Symptoms GI Symptoms None Last BM 01/04 x 2 Difficult in: None Skin Integrity/Comment: intact Current %PO Good (75-100%) Estimated Nutritional Goals BEE in Kcals: Using Current wt Calories/Kcals/Kg 23-27 Kcals Calculated 5684-7249 Protein: Using Current wt Protein g/k.8 Protein Calculated 60 Fluid: ml 1725-1998ml (1ml/kcal) Nutritional Problem No current Nutrition Prob Problem N/A Malnutrition Alert Is there a minimum of two criteria No selected? Query Text:Check all the applicable criteria. A minimum of two criteria are recommended for diagnosis of either severe or non-severe malnutrition. Malnutrition Related to Morbid Obesity Malnutrition related to morbid obesity No Intervention/Recommendation Comments 1. Continue with regular diet as ordered. 2. Monitor PO intake, wt, labs and skin integrity 3. F/U as low risk in 7 days Expected Outcomes/Goals Expected Outcomes/Goals 1. PO intake to meet at least 75% of nutritional needs. 2. Wt stability, skin to remain intact, labs to approach WNL.
[2019-08-06] MEDS: Calcium Carb/Vit D 500 mg/200 U Tab PO SCH (08:17)
[2019-08-06] MEDS: Multivitamin w/ Minerals Tab PO SCH (08:18)
--- NOTE | 2019-08-06 12:33 | Internal Medicine Prog Note ---
Internal Medicine Subjective - Subjective Patient seen and examined:: with staff, chart reviewed Patient is:: awake, verbal, interactive, ambulating, confused Per staff patient has:: no adverse event, no episodes of fall, eating well, tolerating meds Internal Medicine Objective - Results Recent Labs: Laboratory Last Values POC Glucose 188 MG/DL (70 - 105) H 02/02/19 19:27 Triglycerides 162 mg/dL (<150) H 12/31/18 08:04 Cholesterol 234 mg/dL (<200) H 12/31/18 08:04 LDL Cholesterol Direct 155 mg/dL (75-193) 12/31/18 08:04 HDL Cholesterol 62 mg/dL (23-92) 12/31/18 08:04 - Physical Exam Vitals and I&O: Vital Signs Temp 97.6 F 08/06/19 06:10 Pulse 69 08/06/19 06:10 Resp 20 08/06/19 06:10 BP 104/71 08/06/19 06:10 Pulse Ox 97 08/06/19 06:10 Intake & Output 08/05/19 08/06/19 08/06/19 18:59 06:59 18:59 Intake Total 950 300 Balance 950 300 Intake: Oral 950 300 Other: # Voids 3 1 # Bowel Movements 1 0 Active Medications: Current Medications Acetaminophen (Tylenol) 650 mg PO Q4H PRN PRN Reason: Pain (Mild 1-3) Stop: 08/07/19 15:57 Last Admin: 06/08/19 16:13 Dose: 650 mg Alendronate Sodium (Fosamax) 70 mg PO We@0630 [facility] Stop: 09/02/19 06:29 Last Admin: 08/01/19 06:13 Dose: 70 mg Calcium/Vitamin D (Oscal W/Vitamin D) 1 tab PO DAILY [facility] Stop: 09/08/19 08:59 Last Admin: 08/06/19 08:17 Dose: 1 tab Donepezil HCl (Aricept) [address] [facility] Last Admin: 08/05/19 20:16 Dose: 10 mg General: demented, thin HEENT: NC/AT, PERRLA, EOMI Neck: Supple, No JVD, No thyromegaly Lungs: CTAB Cardiovascular: RRR, Normal S1, Normal S2, with murmur Abdomen: soft, thin, non-distended, positive bowel sound Extremities: excoriation Neurological: no change Internal Medicine Assmt/Plan - Assessment Assessment: alzheimers dementa elevated chol djd osteoporosis ho old left hip fx - Plan Plan: fall precaution nutritional support cont on calcium supplemetn - resume fosamax will cont to follow dw rn add mvi Nutritional Asmnt/Malnutr-PDOC - Dietary Evaluation Malnutrition Findings (Please click <Entered> for more info): Nutritional Asmnt/Malnutrition Start: 01/04/19 09: 50 Text: Status: Complete Freq: Protocol: Document 01/04/19 14:59 LCHENG (Rec: 01/04/19 15:06 LCHENG [email or web address]) Nutritional Asmnt/Malnutrition Patient General Information Nutritional Screening Moderate Risk Diagnosis psychosis Pertinent Medical Hx/Surgical Hx dementia, DJD, osteoporosis Subjective Information pt seen lying in bed, awake and alert, stated food has beed great. Pt is not a big eater. Encourage to eat balanced meals and pt agreed with it. Per EMR, PO intake 75 -100% Current Diet Order/ Nutrition Support regular Pertinent Medications reviewed Pertinent Labs 12/31 reviewed Nutritional Hx/Data Height 1.65 m Height (Calculated Centimeters) 165.1 Current Weight (lbs) 74.843 kg Weight (Calculated Kilograms) 74.8 Weight (Calculated Grams) 51413.7 [place] Body Weight 125 Body Mass Index (BMI) 27.4 Weight Status Overweight GI Symptoms GI Symptoms None Last BM 01/04 x 2 Difficult in: None Skin Integrity/Comment: intact Current %PO Good (75-100%) Estimated Nutritional Goals BEE in Kcals: Using Current wt Calories/Kcals/Kg 23-27 Kcals Calculated 6482-5494 Protein: Using Current wt Protein g/k.8 Protein Calculated 60 Fluid: ml 1725-1998ml (1ml/kcal) Nutritional Problem No current Nutrition Prob Problem N/A Malnutrition Alert Is there a minimum of two criteria No selected? Query Text:Check all the applicable criteria. A minimum of two criteria are recommended for diagnosis of either severe or non-severe malnutrition. Malnutrition Related to Morbid Obesity Malnutrition related to morbid obesity No Intervention/Recommendation Comments 1. Continue with regular diet as ordered. 2. Monitor PO intake, wt, labs and skin integrity 3. F/U as low risk in 7 days Expected Outcomes/Goals Expected Outcomes/Goals 1. PO intake to meet at least 75% of nutritional needs. 2. Wt stability, skin to remain intact, labs to approach WNL.
--- NOTE | 2019-08-06 23:43 | Progress Notes ---
DATE: Case was discussed with staff of the patient, reviewed records. The patient continues to wait for placement. Sleeping well, eating well. No suicidal ideation, no homicidal ideation, no paranoia, no side effects. Working on discharge plan and no sedation, no nausea. Vital signs stable. Gait is normal. We will continued the patient in group therapy, milieu therapy, and adjust medications as needed. JOB# [id number] [facility]
[2019-08-07] MEDS: Multivitamin w/ Minerals Tab PO SCH (08:11)
[2019-08-07] MEDS: Calcium Carb/Vit D 500 mg/200 U Tab PO SCH (08:11)
--- NOTE | 2019-08-07 13:01 | Internal Medicine Prog Note ---
Internal Medicine Subjective - Subjective Patient seen and examined:: with staff, chart reviewed Patient is:: awake, verbal, interactive, ambulating, confused Per staff patient has:: no adverse event, no episodes of fall, eating well, tolerating meds Internal Medicine Objective - Results Recent Labs: Laboratory Last Values POC Glucose 188 MG/DL (70 - 105) H 02/02/19 19:27 Triglycerides 162 mg/dL (<150) H 12/31/18 08:04 Cholesterol 234 mg/dL (<200) H 12/31/18 08:04 LDL Cholesterol Direct 155 mg/dL (75-193) 12/31/18 08:04 HDL Cholesterol 62 mg/dL (23-92) 12/31/18 08:04 - Physical Exam Vitals and I&O: Vital Signs Temp 97.4 F 08/07/19 06:00 Pulse 73 08/07/19 06:00 Resp 16 08/07/19 08:00 BP 116/68 08/07/19 06:00 Pulse Ox 98 08/07/19 06:00 Intake & Output 08/06/19 08/07/19 08/07/19 18:59 06:59 18:59 Intake Total 1000 240 Balance 1000 240 Intake: Oral 1000 240 Other: # Voids 4 2 # Bowel Movements 1 Active Medications: Current Medications Acetaminophen (Tylenol) 650 mg PO Q4H PRN PRN Reason: Pain (Mild 1-3) Stop: 08/07/19 15:57 Last Admin: 06/08/19 16:13 Dose: 650 mg Alendronate Sodium (Fosamax) 70 mg PO We@0630 [facility] Stop: 09/02/19 06:29 Last Admin: 08/01/19 06:13 Dose: 70 mg Calcium/Vitamin D (Oscal W/Vitamin D) 1 tab PO DAILY [facility] Stop: 09/08/19 08:59 Last Admin: 08/07/19 08:11 Dose: 1 tab Donepezil HCl (Aricept) 10 mg PO [facility] Last Admin: 08/06/19 20:28 Dose: 10 mg General: demented, thin HEENT: NC/AT, PERRLA, EOMI Neck: Supple, No JVD, No thyromegaly Lungs: CTAB Cardiovascular: RRR, Normal S1, Normal S2, with murmur Abdomen: soft, thin, non-distended, positive bowel sound Extremities: excoriation Neurological: no change Internal Medicine Assmt/Plan - Assessment Assessment: alzheimers dementa elevated chol djd osteoporosis ho old left hip fx - Plan Plan: fall precaution nutritional support cont on calcium supplemetn - resume fosamax will cont to follow dw rn add mvi Nutritional Asmnt/Malnutr-PDOC - Dietary Evaluation Malnutrition Findings (Please click <Entered> for more info): Nutritional Asmnt/Malnutrition Start: 01/04/19 09: 50 Text: Status: Complete Freq: Protocol: Document 01/04/19 14:59 LCHENG (Rec: 01/04/19 15:06 LCHENG [email or web address]) Nutritional Asmnt/Malnutrition Patient General Information Nutritional Screening Moderate Risk Diagnosis psychosis Pertinent Medical Hx/Surgical Hx dementia, DJD, osteoporosis Subjective Information pt seen lying in bed, awake and alert, stated food has beed great. Pt is not a big eater. Encourage to eat balanced meals and pt agreed with it. Per EMR, PO intake 75 -100% Current Diet Order/ Nutrition Support regular Pertinent Medications reviewed Pertinent Labs 12/31 reviewed Nutritional Hx/Data Height 1.65 m Height (Calculated Centimeters) 165.1 Current Weight (lbs) 74.843 kg Weight (Calculated Kilograms) 74.8 Weight (Calculated Grams) 97852.7 [place] Body Weight 125 Body Mass Index (BMI) 27.4 Weight Status Overweight GI Symptoms GI Symptoms None Last BM 01/04 x 2 Difficult in: None Skin Integrity/Comment: intact Current %PO Good (75-100%) Estimated Nutritional Goals BEE in Kcals: Using Current wt Calories/Kcals/Kg 23-27 Kcals Calculated 1480-4805 Protein: Using Current wt Protein g/k.8 Protein Calculated 60 Fluid: ml 1725-1998ml (1ml/kcal) Nutritional Problem No current Nutrition Prob Problem N/A Malnutrition Alert Is there a minimum of two criteria No selected? Query Text:Check all the applicable criteria. A minimum of two criteria are recommended for diagnosis of either severe or non-severe malnutrition. Malnutrition Related to Morbid Obesity Malnutrition related to morbid obesity No Intervention/Recommendation Comments 1. Continue with regular diet as ordered. 2. Monitor PO intake, wt, labs and skin integrity 3. F/U as low risk in 7 days Expected Outcomes/Goals Expected Outcomes/Goals 1. PO intake to meet at least 75% of nutritional needs. 2. Wt stability, skin to remain intact, labs to approach WNL.
--- NOTE | 2019-08-07 21:24 | Progress Notes ---
DATE: Case was discussed with staff of the patient, reviewed records. The patient is awaiting placement. Sleeping well, eating well. No suicidal ideation, no homicidal ideation, no paranoia, no side effects. Working on discharge plan. We will continue the patient in group therapy, milieu therapy, adjust medication as needed. [facility]# [id number]
--- NOTE | 2019-08-08 06:50 | Progress Notes ---
DATE: 08/08/2019 SUBJECTIVE: Chart was reviewed and the patient interviewed. Also discussed the patient's condition with the staff and reviewed records and labs. The patient is still in irritable and angry mood. The patient also is still suspicious and is still withdrawn and guarded and interacting minimally with others. The patient also denies any thoughts of suicide or homicide, but she still seems to be more depressed because of her long hospital stay. Otherwise, the patient is cooperative and compliant with taking her medications and still needs redirections. JOB# [id number]
[2019-08-08] MEDS: Multivitamin w/ Minerals Tab PO SCH (08:00)
[2019-08-08] MEDS: Calcium Carb/Vit D 500 mg/200 U Tab PO SCH (08:00)
--- NOTE | 2019-08-08 12:58 | Internal Medicine Prog Note ---
Internal Medicine Subjective - Subjective Patient seen and examined:: with staff, chart reviewed Patient is:: awake, verbal, interactive, ambulating, confused Per staff patient has:: no adverse event, no episodes of fall, eating well, tolerating meds Internal Medicine Objective - Results Recent Labs: Laboratory Last Values POC Glucose 188 MG/DL (70 - 105) H 02/02/19 19:27 Triglycerides 162 mg/dL (<150) H 12/31/18 08:04 Cholesterol 234 mg/dL (<200) H 12/31/18 08:04 LDL Cholesterol Direct 155 mg/dL (75-193) 12/31/18 08:04 HDL Cholesterol 62 mg/dL (23-92) 12/31/18 08:04 - Physical Exam Vitals and I&O: Vital Signs Temp 97.2 F 08/08/19 06:28 Pulse 67 08/08/19 06:28 Resp 18 08/08/19 08:00 BP 121/70 08/08/19 06:28 Pulse Ox 96 08/08/19 06:28 Intake & Output 08/07/19 08/08/19 08/08/19 18:59 06:59 18:59 Intake Total 900 240 Balance 900 240 Intake: Oral 900 240 Other: # Voids 3 2 # Bowel Movements 1 0 Stool Characteristics Soft Brown Active Medications: Current Medications Alendronate Sodium (Fosamax) 70 mg PO We@0630 [facility] Stop: 09/02/19 06:29 Last Admin: 08/08/19 06:18 Dose: 70 mg Calcium/Vitamin D (Oscal W/Vitamin D) 1 tab PO DAILY [facility] Stop: 09/08/19 08:59 Last Admin: 08/08/19 08:00 Dose: 1 tab Donepezil HCl (Aricept) 10 mg PO [facility] Last Admin: 08/07/19 20:31 Dose: 10 mg General: demented, thin HEENT: NC/AT, PERRLA, EOMI Neck: Supple, No JVD, No thyromegaly Lungs: CTAB Cardiovascular: RRR, Normal S1, Normal S2, with murmur Abdomen: soft, thin, non-distended, positive bowel sound Extremities: excoriation Neurological: no change Internal Medicine Assmt/Plan - Assessment Assessment: alzheimers dementa elevated chol djd osteoporosis ho old left hip fx - Plan Plan: fall precaution nutritional support cont on calcium supplemetn - resume fosamax will cont to follow dw rn add mvi Nutritional Asmnt/Malnutr-PDOC - Dietary Evaluation Malnutrition Findings (Please click <Entered> for more info): Nutritional Asmnt/Malnutrition Start: 01/04/19 09: 50 Text: Status: Complete Freq: Protocol: Document 01/04/19 14:59 LCJOSEG (Rec: 01/04/19 15:06 LCHENG [email or web address]) Nutritional Asmnt/Malnutrition Patient General Information Nutritional Screening Moderate Risk Diagnosis psychosis Pertinent Medical Hx/Surgical Hx dementia, DJD, osteoporosis Subjective Information pt seen lying in bed, awake and alert, stated food has beed great. Pt is not a big eater. Encourage to eat balanced meals and pt agreed with it. Per EMR, PO intake 75 -100% Current Diet Order/ Nutrition Support regular Pertinent Medications reviewed Pertinent Labs 12/31 reviewed Nutritional Hx/Data Height 1.65 m Height (Calculated Centimeters) 165.1 Current Weight (lbs) 74.843 kg Weight (Calculated Kilograms) 74.8 Weight (Calculated Grams) 53982.7 [place] Body Weight 125 Body Mass Index (BMI) 27.4 Weight Status Overweight GI Symptoms GI Symptoms None Last BM 01/04 x 2 Difficult in: None Skin Integrity/Comment: intact Current %PO Good (75-100%) Estimated Nutritional Goals BEE in Kcals: Using Current wt Calories/Kcals/Kg 23-27 Kcals Calculated 3183-7739 Protein: Using Current wt Protein g/k.8 Protein Calculated 60 Fluid: ml 1725-1998ml (1ml/kcal) Nutritional Problem No current Nutrition Prob Problem N/A Malnutrition Alert Is there a minimum of two criteria No selected? Query Text:Check all the applicable criteria. A minimum of two criteria are recommended for diagnosis of either severe or non-severe malnutrition. Malnutrition Related to Morbid Obesity Malnutrition related to morbid obesity No Intervention/Recommendation Comments 1. Continue with regular diet as ordered. 2. Monitor PO intake, wt, labs and skin integrity 3. F/U as low risk in 7 days Expected Outcomes/Goals Expected Outcomes/Goals 1. PO intake to meet at least 75% of nutritional needs. 2. Wt stability, skin to remain intact, labs to approach WNL.
[2019-08-09] MEDS: Calcium Carb/Vit D 500 mg/200 U Tab PO SCH (08:15)
[2019-08-09] MEDS: Multivitamin w/ Minerals Tab PO SCH (08:15)
--- NOTE | 2019-08-09 14:17 | Internal Medicine Prog Note ---
Internal Medicine Subjective - Subjective Patient seen and examined:: with staff, chart reviewed Patient is:: awake, verbal, interactive, ambulating, confused Per staff patient has:: no adverse event, no episodes of fall, eating well, tolerating meds Internal Medicine Objective - Results Recent Labs: Laboratory Last Values POC Glucose 188 MG/DL (70 - 105) H 02/02/19 19:27 Triglycerides 162 mg/dL (<150) H 12/31/18 08:04 Cholesterol 234 mg/dL (<200) H 12/31/18 08:04 LDL Cholesterol Direct 155 mg/dL (75-193) 12/31/18 08:04 HDL Cholesterol 62 mg/dL (23-92) 12/31/18 08:04 - Physical Exam Vitals and I&O: Vital Signs Temp 97.3 F 08/09/19 06:43 Pulse 73 08/09/19 06:43 Resp 18 08/09/19 08:00 BP 124/76 08/09/19 06:43 Pulse Ox 96 08/09/19 06:43 Intake & Output 08/08/19 08/09/19 08/09/19 18:59 06:59 18:59 Intake Total 900 240 Balance 900 240 Intake: Oral 900 240 Other: # Voids 3 2 # Bowel Movements 1 0 Stool Characteristics Soft Soft Brown Brown Active Medications: Current Medications Acetaminophen (Tylenol) 650 mg PO Q4H PRN PRN Reason: Pain (Mild 1-3) Stop: 10/07/19 17:51 Acetaminophen (Tylenol) 650 mg PO Q4H PRN PRN Reason: Temperature above 101 Stop: 10/07/19 17:53 Alendronate Sodium (Fosamax) 70 mg PO We@0630 [facility] Stop: 09/02/19 06:29 Last Admin: 08/08/19 06:18 Dose: 70 mg Calcium/Vitamin D (Oscal W/Vitamin D) 1 tab PO DAILY [facility] Stop: 09/08/19 08:59 Last Admin: 08/09/19 08:15 Dose: 1 tab Donepezil HCl (Aricept) 10 mg PO HS [facility] Last Admin: 08/08/19 20:46 Dose: 10 mg General: demented, thin HEENT: NC/AT, PERRLA, EOMI Neck: Supple, No JVD, No thyromegaly Lungs: CTAB Cardiovascular: RRR, Normal S1, Normal S2, with murmur Abdomen: soft, thin, non-distended, positive bowel sound Extremities: excoriation Neurological: no change Internal Medicine Assmt/Plan - Assessment Assessment: alzheimers dementa elevated chol djd osteoporosis ho old left hip fx - Plan Plan: fall precaution nutritional support cont on calcium supplemetn - resume fosamax will cont to follow dw rn add mvi Nutritional Asmnt/Malnutr-PDOC - Dietary Evaluation Malnutrition Findings (Please click <Entered> for more info): Nutritional Asmnt/Malnutrition Start: 01/04/19 09: 50 Text: Status: Complete Freq: Protocol: Document 01/04/19 14:59 ANUELG (Rec: 01/04/19 15:06 TARIK [email or web address]) Nutritional Asmnt/Malnutrition Patient General Information Nutritional Screening Moderate Risk Diagnosis psychosis Pertinent Medical Hx/Surgical Hx dementia, DJD, osteoporosis Subjective Information pt seen lying in bed, awake and alert, stated food has beed great. Pt is not a big eater. Encourage to eat balanced meals and pt agreed with it. Per EMR, PO intake 75 -100% Current Diet Order/ Nutrition Support regular Pertinent Medications reviewed Pertinent Labs 12/31 reviewed Nutritional Hx/Data Height 1.65 m Height (Calculated Centimeters) 165.1 Current Weight (lbs) 74.843 kg Weight (Calculated Kilograms) 74.8 Weight (Calculated Grams) 62121.7 [place] Body Weight 125 Body Mass Index (BMI) 27.4 Weight Status Overweight GI Symptoms GI Symptoms None Last BM 01/04 x 2 Difficult in: None Skin Integrity/Comment: intact Current %PO Good (75-100%) Estimated Nutritional Goals BEE in Kcals: Using Current wt Calories/Kcals/Kg 23-27 Kcals Calculated 7452-3518 Protein: Using Current wt Protein g/k.8 Protein Calculated 60 Fluid: ml 1725-1998ml (1ml/kcal) Nutritional Problem No current Nutrition Prob Problem N/A Malnutrition Alert Is there a minimum of two criteria No selected? Query Text:Check all the applicable criteria. A minimum of two criteria are recommended for diagnosis of either severe or non-severe malnutrition. Malnutrition Related to Morbid Obesity Malnutrition related to morbid obesity No Intervention/Recommendation Comments 1. Continue with regular diet as ordered. 2. Monitor PO intake, wt, labs and skin integrity 3. F/U as low risk in 7 days Expected Outcomes/Goals Expected Outcomes/Goals 1. PO intake to meet at least 75% of nutritional needs. 2. Wt stability, skin to remain intact, labs to approach WNL.
[2019-08-10] MEDS: Multivitamin w/ Minerals Tab PO SCH (08:19)
[2019-08-10] MEDS: Calcium Carb/Vit D 500 mg/200 U Tab PO SCH (08:19)
--- NOTE | 2019-08-10 13:08 | Internal Medicine Prog Note ---
Internal Medicine Subjective - Subjective Patient seen and examined:: with staff, chart reviewed Patient is:: awake, verbal, interactive, ambulating, confused Per staff patient has:: no adverse event, no episodes of fall, eating well, tolerating meds Internal Medicine Objective - Results Recent Labs: Laboratory Last Values POC Glucose 188 MG/DL (70 - 105) H 02/02/19 19:27 Triglycerides 162 mg/dL (<150) H 12/31/18 08:04 Cholesterol 234 mg/dL (<200) H 12/31/18 08:04 LDL Cholesterol Direct 155 mg/dL (75-193) 12/31/18 08:04 HDL Cholesterol 62 mg/dL (23-92) 12/31/18 08:04 - Physical Exam Vitals and I&O: Vital Signs Temp 97.5 F 08/10/19 06:29 Pulse 74 08/10/19 06:29 Resp 18 08/10/19 08:00 BP 126/70 08/10/19 06:29 Pulse Ox 96 08/10/19 06:29 Intake & Output 08/09/19 08/10/19 08/10/19 18:59 06:59 18:59 Intake Total 1300 240 Balance 1300 240 Intake: Oral 1300 240 Other: # Voids 3 2 # Bowel Movements 0 0 Stool Characteristics Soft Soft Brown Brown Active Medications: Current Medications Acetaminophen (Tylenol) 650 mg PO Q4H PRN PRN Reason: Pain (Mild 1-3) Stop: 10/07/19 17:51 Acetaminophen (Tylenol) 650 mg PO Q4H PRN PRN Reason: Temperature above 101 Stop: 10/07/19 17:53 Alendronate Sodium (Fosamax) 70 mg PO We@0630 [facility] Stop: 09/02/19 06:29 Last Admin: 08/08/19 06:18 Dose: 70 mg Calcium/Vitamin D (Oscal W/Vitamin D) 1 tab PO DAILY [facility] Stop: 09/08/19 08:59 Last Admin: 08/10/19 08:19 Dose: 1 tab Donepezil HCl (Aricept) 10 mg PO HS [facility] Last Admin: 08/09/19 21:23 Dose: 10 mg General: demented, thin HEENT: NC/AT, PERRLA, EOMI Neck: Supple, No JVD, No thyromegaly Lungs: CTAB Cardiovascular: RRR, Normal S1, Normal S2, with murmur Abdomen: soft, thin, non-distended, positive bowel sound Extremities: excoriation Neurological: no change Internal Medicine Assmt/Plan - Assessment Assessment: alzheimers dementa elevated chol djd osteoporosis ho old left hip fx - Plan Plan: fall precaution nutritional support cont on calcium supplemetn - resume fosamax will cont to follow dw rn add mvi Nutritional Asmnt/Malnutr-PDOC - Dietary Evaluation Malnutrition Findings (Please click <Entered> for more info): Nutritional Asmnt/Malnutrition Start: 01/04/19 09: 50 Text: Status: Complete Freq: Protocol: Document 01/04/19 14:59 ANUELG (Rec: 01/04/19 15:06 TARIK [email or web address]) Nutritional Asmnt/Malnutrition Patient General Information Nutritional Screening Moderate Risk Diagnosis psychosis Pertinent Medical Hx/Surgical Hx dementia, DJD, osteoporosis Subjective Information pt seen lying in bed, awake and alert, stated food has beed great. Pt is not a big eater. Encourage to eat balanced meals and pt agreed with it. Per EMR, PO intake 75 -100% Current Diet Order/ Nutrition Support regular Pertinent Medications reviewed Pertinent Labs 12/31 reviewed Nutritional Hx/Data Height 1.65 m Height (Calculated Centimeters) 165.1 Current Weight (lbs) 74.843 kg Weight (Calculated Kilograms) 74.8 Weight (Calculated Grams) 81003.7 [place] Body Weight 125 Body Mass Index (BMI) 27.4 Weight Status Overweight GI Symptoms GI Symptoms None Last BM 01/04 x 2 Difficult in: None Skin Integrity/Comment: intact Current %PO Good (75-100%) Estimated Nutritional Goals BEE in Kcals: Using Current wt Calories/Kcals/Kg 23-27 Kcals Calculated 6689-4318 Protein: Using Current wt Protein g/k.8 Protein Calculated 60 Fluid: ml 1725-1998ml (1ml/kcal) Nutritional Problem No current Nutrition Prob Problem N/A Malnutrition Alert Is there a minimum of two criteria No selected? Query Text:Check all the applicable criteria. A minimum of two criteria are recommended for diagnosis of either severe or non-severe malnutrition. Malnutrition Related to Morbid Obesity Malnutrition related to morbid obesity No Intervention/Recommendation Comments 1. Continue with regular diet as ordered. 2. Monitor PO intake, wt, labs and skin integrity 3. F/U as low risk in 7 days Expected Outcomes/Goals Expected Outcomes/Goals 1. PO intake to meet at least 75% of nutritional needs. 2. Wt stability, skin to remain intact, labs to approach WNL.
[2019-08-11] MEDS: Calcium Carb/Vit D 500 mg/200 U Tab PO SCH (08:15)
[2019-08-11] MEDS: Multivitamin w/ Minerals Tab PO SCH (08:15)
--- NOTE | 2019-08-11 15:59 | Internal Medicine Prog Note ---
Internal Medicine Subjective - Subjective Patient seen and examined:: with staff, chart reviewed Patient is:: awake, verbal, interactive, ambulating, confused Per staff patient has:: no adverse event, no episodes of fall, eating well, tolerating meds Internal Medicine Objective - Results Recent Labs: Laboratory Last Values POC Glucose 188 MG/DL (70 - 105) H 02/02/19 19:27 Triglycerides 162 mg/dL (<150) H 12/31/18 08:04 Cholesterol 234 mg/dL (<200) H 12/31/18 08:04 LDL Cholesterol Direct 155 mg/dL (75-193) 12/31/18 08:04 HDL Cholesterol 62 mg/dL (23-92) 12/31/18 08:04 - Physical Exam Vitals and I&O: Vital Signs Temp 97.7 F 08/11/19 14:00 Pulse 68 08/11/19 14:00 Resp 20 08/11/19 14:00 BP 111/83 08/11/19 14:00 Pulse Ox 98 08/11/19 14:00 Intake & Output 08/10/19 08/11/19 08/11/19 18:59 06:59 18:59 Intake Total 1200 300 Balance 1200 300 Intake: Oral 1200 300 Other: # Voids 1 # Bowel Movements 1 0 Stool Characteristics Soft Brown Active Medications: Current Medications Acetaminophen (Tylenol) 650 mg PO Q4H PRN PRN Reason: Pain (Mild 1-3) Stop: 10/07/19 17:51 Acetaminophen (Tylenol) 650 mg PO Q4H PRN PRN Reason: Temperature above 101 Stop: 10/07/19 17:53 Alendronate Sodium (Fosamax) 70 mg PO We@0630 [facility] Stop: 09/02/19 06:29 Last Admin: 08/08/19 06:18 Dose: 70 mg Calcium/Vitamin D (Oscal W/Vitamin D) 1 tab PO DAILY [facility] Stop: 09/08/19 08:59 Last Admin: 08/11/19 08:15 Dose: 1 tab Donepezil HCl (Aricept) 10 mg PO HS [facility] Last Admin: 08/10/19 20:17 Dose: 10 mg General: demented, thin HEENT: NC/AT, PERRLA, EOMI Neck: Supple, No JVD, No thyromegaly Lungs: CTAB Cardiovascular: RRR, Normal S1, Normal S2, with murmur Abdomen: soft, thin, non-distended, positive bowel sound Extremities: excoriation Neurological: no change Internal Medicine Assmt/Plan - Assessment Assessment: alzheimers dementa elevated chol djd osteoporosis ho old left hip fx - Plan Plan: fall precaution nutritional support cont on calcium supplemetn - resume fosamax will cont to follow dw rn add mvi Nutritional Asmnt/Malnutr-PDOC - Dietary Evaluation Malnutrition Findings (Please click <Entered> for more info): Nutritional Asmnt/Malnutrition Start: 01/04/19 09: 50 Text: Status: Complete Freq: Protocol: Document 01/04/19 14:59 LCHENG (Rec: 01/04/19 15:06 LCJOSEG [id number]) Nutritional Asmnt/Malnutrition Patient General Information Nutritional Screening Moderate Risk Diagnosis psychosis Pertinent Medical Hx/Surgical Hx dementia, DJD, osteoporosis Subjective Information pt seen lying in bed, awake and alert, stated food has beed great. Pt is not a big eater. Encourage to eat balanced meals and pt agreed with it. Per EMR, PO intake 75 -100% Current Diet Order/ Nutrition Support regular Pertinent Medications reviewed Pertinent Labs 12/31 reviewed Nutritional Hx/Data Height 1.65 m Height (Calculated Centimeters) 165.1 Current Weight (lbs) 74.843 kg Weight (Calculated Kilograms) 74.8 Weight (Calculated Grams) 21640.7 [place] Body Weight 125 Body Mass Index (BMI) 27.4 Weight Status Overweight GI Symptoms GI Symptoms None Last BM 01/04 x 2 Difficult in: None Skin Integrity/Comment: intact Current %PO Good (75-100%) Estimated Nutritional Goals BEE in Kcals: Using Current wt Calories/Kcals/Kg 23-27 Kcals Calculated 6857-2562 Protein: Using Current wt Protein g/k.8 Protein Calculated 60 Fluid: ml 1725-1998ml (1ml/kcal) Nutritional Problem No current Nutrition Prob Problem N/A Malnutrition Alert Is there a minimum of two criteria No selected? Query Text:Check all the applicable criteria. A minimum of two criteria are recommended for diagnosis of either severe or non-severe malnutrition. Malnutrition Related to Morbid Obesity Malnutrition related to morbid obesity No Intervention/Recommendation Comments 1. Continue with regular diet as ordered. 2. Monitor PO intake, wt, labs and skin integrity 3. F/U as low risk in 7 days Expected Outcomes/Goals Expected Outcomes/Goals 1. PO intake to meet at least 75% of nutritional needs. 2. Wt stability, skin to remain intact, labs to approach WNL.
--- NOTE | 2019-08-11 22:40 | Progress Notes ---
DATE: 08/11/2019 The patient remains suspicious, withdrawn, confused, otherwise interactive with others. At times, no agitation, no escalation of behaviors. Remains confused and disoriented. We are pending placement. JOB# [id number]
[2019-08-12] MEDS: Multivitamin w/ Minerals Tab PO SCH (08:54)
[2019-08-12] MEDS: Calcium Carb/Vit D 500 mg/200 U Tab PO SCH (08:54)
--- NOTE | 2019-08-12 14:34 | Internal Medicine Prog Note ---
Internal Medicine Subjective - Subjective Patient seen and examined:: with staff, chart reviewed Patient is:: awake, verbal, interactive, ambulating, confused Per staff patient has:: no adverse event, no episodes of fall, eating well, tolerating meds Internal Medicine Objective - Results Recent Labs: Laboratory Last Values POC Glucose 112 MG/DL (70 - 105) H 08/11/19 21:00 Triglycerides 162 mg/dL (<150) H 12/31/18 08:04 Cholesterol 234 mg/dL (<200) H 12/31/18 08:04 LDL Cholesterol Direct 155 mg/dL (75-193) 12/31/18 08:04 HDL Cholesterol 62 mg/dL (23-92) 12/31/18 08:04 - Physical Exam Vitals and I&O: Vital Signs Temp 97 F 08/12/19 06:32 Pulse 79 08/12/19 06:32 Resp 18 08/12/19 08:00 BP 118/73 08/12/19 06:32 Pulse Ox 98 08/12/19 06:32 Intake & Output 08/11/19 08/12/19 08/12/19 18:59 06:59 18:59 Intake Total 1300 120 Balance 1300 120 Intake: Oral 1300 120 Other: # Voids 3 3 # Bowel Movements 0 Stool Characteristics Soft Brown Active Medications: Current Medications Acetaminophen (Tylenol) 650 mg PO Q4H PRN PRN Reason: Pain (Mild 1-3) Stop: 10/07/19 17:51 Acetaminophen (Tylenol) 650 mg PO Q4H PRN PRN Reason: Temperature above 101 Stop: 10/07/19 17:53 Alendronate Sodium (Fosamax) 70 mg PO We@0630 [facility] Stop: 09/02/19 06:29 Last Admin: 08/08/19 06:18 Dose: 70 mg Calcium/Vitamin D (Oscal W/Vitamin D) 1 tab PO DAILY [facility] Stop: 09/08/19 08:59 Last Admin: 08/12/19 08:54 Dose: 1 tab Donepezil HCl (Aricept) 10 mg PO HS [facility] Last Admin: 08/11/19 21:15 Dose: 10 mg General: demented, thin HEENT: NC/AT, PERRLA, EOMI Neck: Supple, No JVD, No thyromegaly Lungs: CTAB Cardiovascular: RRR, Normal S1, Normal S2, with murmur Abdomen: soft, thin, non-distended, positive bowel sound Extremities: excoriation Neurological: no change Internal Medicine Assmt/Plan - Assessment Assessment: alzheimers dementa elevated chol djd osteoporosis ho old left hip fx - Plan Plan: fall precaution nutritional support cont on calcium supplemetn - resume fosamax will cont to follow dw rn add mvi Nutritional Asmnt/Malnutr-PDOC - Dietary Evaluation Malnutrition Findings (Please click <Entered> for more info): Nutritional Asmnt/Malnutrition Start: 01/04/19 09: 50 Text: Status: Complete Freq: Protocol: Document 01/04/19 14:59 LCHENG (Rec: 01/04/19 15:06 LCHENG [email or web address]) Nutritional Asmnt/Malnutrition Patient General Information Nutritional Screening Moderate Risk Diagnosis psychosis Pertinent Medical Hx/Surgical Hx dementia, DJD, osteoporosis Subjective Information pt seen lying in bed, awake and alert, stated food has beed great. Pt is not a big eater. Encourage to eat balanced meals and pt agreed with it. Per EMR, PO intake 75 -100% Current Diet Order/ Nutrition Support regular Pertinent Medications reviewed Pertinent Labs 12/31 reviewed Nutritional Hx/Data Height 1.65 m Height (Calculated Centimeters) 165.1 Current Weight (lbs) 74.843 kg Weight (Calculated Kilograms) 74.8 Weight (Calculated Grams) 24155.7 [place] Body Weight 125 Body Mass Index (BMI) 27.4 Weight Status Overweight GI Symptoms GI Symptoms None Last BM 01/04 x 2 Difficult in: None Skin Integrity/Comment: intact Current %PO Good (75-100%) Estimated Nutritional Goals BEE in Kcals: Using Current wt Calories/Kcals/Kg 23-27 Kcals Calculated 2111-8651 Protein: Using Current wt Protein g/k.8 Protein Calculated 60 Fluid: ml 1725-1998ml (1ml/kcal) Nutritional Problem No current Nutrition Prob Problem N/A Malnutrition Alert Is there a minimum of two criteria No selected? Query Text:Check all the applicable criteria. A minimum of two criteria are recommended for diagnosis of either severe or non-severe malnutrition. Malnutrition Related to Morbid Obesity Malnutrition related to morbid obesity No Intervention/Recommendation Comments 1. Continue with regular diet as ordered. 2. Monitor PO intake, wt, labs and skin integrity 3. F/U as low risk in 7 days Expected Outcomes/Goals Expected Outcomes/Goals 1. PO intake to meet at least 75% of nutritional needs. 2. Wt stability, skin to remain intact, labs to approach WNL.
[2019-08-13] MEDS: Multivitamin w/ Minerals Tab PO SCH (08:00)
[2019-08-13] MEDS: Calcium Carb/Vit D 500 mg/200 U Tab PO SCH (08:00)
--- NOTE | 2019-08-13 08:04 | Progress Notes ---
DATE: 08/12/2019 SUBJECTIVE: The patient in the hospital, confused, disoriented, pending placement. No agitation, mostly withdrawn, keeps to self, disoriented. Medications were reviewed. Fair sleep, requiring some prompting, and redirection. Continue with dosing of . JOB# [id number]
--- NOTE | 2019-08-13 08:04 | Progress Notes ---
DATE: 08/09/2019 SUBJECTIVE: Chart reviewed and the patient interviewed. Also discussed the patient's condition with the staff and reviewed records and labs. The patient is still in a depressed mood. The patient also is still anxious about her discharge, but at the same time, her staying in the hospital is making her more confused. The patient also is still unable to provide any safe plan for self-care or any safe plan for her discharge. ASSESSMENT: The patient is still considered to be gravely disabled. TREATMENT PLAN: Continue current treatment and current medications. Also, continue working on discharge plans and also providing supportive therapy for the patient and continue to follow up. JOB# [id number]
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
--- NOTE | 2019-08-13 12:48 | Internal Medicine Prog Note ---
Internal Medicine Subjective - Subjective Patient seen and examined:: with staff, chart reviewed Patient is:: awake, verbal, interactive, ambulating, confused Per staff patient has:: no adverse event, no episodes of fall, eating well, tolerating meds Internal Medicine Objective - Results Recent Labs: Laboratory Last Values POC Glucose 112 MG/DL (70 - 105) H 08/11/19 21:00 Triglycerides 162 mg/dL (<150) H 12/31/18 08:04 Cholesterol 234 mg/dL (<200) H 12/31/18 08:04 LDL Cholesterol Direct 155 mg/dL (75-193) 12/31/18 08:04 HDL Cholesterol 62 mg/dL (23-92) 12/31/18 08:04 - Physical Exam Vitals and I&O: Vital Signs Temp 98.1 F 08/13/19 06:27 Pulse 78 08/13/19 06:27 Resp 19 08/13/19 06:27 BP 152/77 08/13/19 06:27 Pulse Ox 97 08/13/19 06:27 Intake & Output 08/12/19 08/13/19 08/13/19 18:59 06:59 18:59 Intake Total 1000 300 Balance 1000 300 Intake: Oral 1000 300 Other: # Voids 2 # Bowel Movements 1 Stool Characteristics Soft Brown Active Medications: Current Medications Acetaminophen (Tylenol) 650 mg PO Q4H PRN PRN Reason: Pain (Mild 1-3) Stop: 10/07/19 17:51 Acetaminophen (Tylenol) 650 mg PO Q4H PRN PRN Reason: Temperature above 101 Stop: 10/07/19 17:53 Alendronate Sodium (Fosamax) 70 mg PO We@0630 [facility] Stop: 09/02/19 06:29 Last Admin: 08/08/19 06:18 Dose: 70 mg Calcium/Vitamin D (Oscal W/Vitamin D) 1 tab PO DAILY [facility] Stop: 09/08/19 08:59 Last Admin: 08/13/19 08:00 Dose: 1 tab Donepezil HCl (Aricept) 10 mg PO HS [facility] Last Admin: 08/12/19 20:56 Dose: 10 mg General: demented, thin HEENT: NC/AT, PERRLA, EOMI Neck: Supple, No JVD, No thyromegaly Lungs: CTAB Cardiovascular: RRR, Normal S1, Normal S2, with murmur Abdomen: soft, thin, non-distended, positive bowel sound Extremities: excoriation Neurological: no change Internal Medicine Assmt/Plan - Assessment Assessment: alzheimers dementa elevated chol djd osteoporosis ho old left hip fx - Plan Plan: fall precaution nutritional support cont on calcium supplemetn - resume fosamax will cont to follow dw rn add mvi Nutritional Asmnt/Malnutr-PDOC - Dietary Evaluation Malnutrition Findings (Please click <Entered> for more info): Nutritional Asmnt/Malnutrition Start: 01/04/19 09: 50 Text: Status: Complete Freq: Protocol: Document 01/04/19 14:59 LCHENG (Rec: 01/04/19 15:06 LCHENG [email or web address]) Nutritional Asmnt/Malnutrition Patient General Information Nutritional Screening Moderate Risk Diagnosis psychosis Pertinent Medical Hx/Surgical Hx dementia, DJD, osteoporosis Subjective Information pt seen lying in bed, awake and alert, stated food has beed great. Pt is not a big eater. Encourage to eat balanced meals and pt agreed with it. Per EMR, PO intake 75 -100% Current Diet Order/ Nutrition Support regular Pertinent Medications reviewed Pertinent Labs 12/31 reviewed Nutritional Hx/Data Height 1.65 m Height (Calculated Centimeters) 165.1 Current Weight (lbs) 74.843 kg Weight (Calculated Kilograms) 74.8 Weight (Calculated Grams) 32286.7 [place] Body Weight 125 Body Mass Index (BMI) 27.4 Weight Status Overweight GI Symptoms GI Symptoms None Last BM 01/04 x 2 Difficult in: None Skin Integrity/Comment: intact Current %PO Good (75-100%) Estimated Nutritional Goals BEE in Kcals: Using Current wt Calories/Kcals/Kg 23-27 Kcals Calculated 2982-5521 Protein: Using Current wt Protein g/k.8 Protein Calculated 60 Fluid: ml 1725-1998ml (1ml/kcal) Nutritional Problem No current Nutrition Prob Problem N/A Malnutrition Alert Is there a minimum of two criteria No selected? Query Text:Check all the applicable criteria. A minimum of two criteria are recommended for diagnosis of either severe or non-severe malnutrition. Malnutrition Related to Morbid Obesity Malnutrition related to morbid obesity No Intervention/Recommendation Comments 1. Continue with regular diet as ordered. 2. Monitor PO intake, wt, labs and skin integrity 3. F/U as low risk in 7 days Expected Outcomes/Goals Expected Outcomes/Goals 1. PO intake to meet at least 75% of nutritional needs. 2. Wt stability, skin to remain intact, labs to approach WNL.
--- NOTE | 2019-08-13 14:04 | Progress Notes ---
DATE: 08/10/2019 Chart reviewed and the patient interviewed. Also discussed the patient's condition with the staff and reviewed records and labs. The patient is calm and cooperative. The patient also is still less irritable and less agitated. The patient also is interacting minimally with others. She also is denying any suicide or homicide and she is still unhappy for the length of stay at the hospital. At the same time, I have no specific plans for her discharge and still unable to make decisions. ASSESSMENT: The patient is still anxious and is still in waiting for discharge plans. TREATMENT PLAN: Continue current treatment and continue to work with discharge plans in regard to placement issue and in regard to discharge plans. [facility]# [id number]
--- NOTE | 2019-08-14 07:11 | Progress Notes ---
DATE: SUBJECTIVE: Chart was reviewed and the patient interviewed. Also discussed the patient's condition with the staff and reviewed records and labs. The patient is still in a depressed mood, but she is cooperative with her treatment and compliant with taking her medications. The patient also is still at times pacing up and down the unit, but no behavioral problems or any agitation. The patient is still waiting for placement and she wants "[place] at home." The patient denies any side effects of medications. ASSESSMENT: The patient is still considered to be gravely disabled and waiting for placement. TREATMENT PLAN: Continue to monitor behavior and condition closely. Also, continue adjusting psychotropic medications and work on discharge plans and placement issue. [facility]# [id number]
[2019-08-14] MEDS: Calcium Carb/Vit D 500 mg/200 U Tab PO SCH (08:21)
[2019-08-14] MEDS: Multivitamin w/ Minerals Tab PO SCH (08:21)
[2019-08-15] MEDS: Calcium Carb/Vit D 500 mg/200 U Tab PO SCH (09:28)
[2019-08-15] MEDS: Multivitamin w/ Minerals Tab PO SCH (09:29)
--- NOTE | 2019-08-15 11:22 | Progress Notes ---
DATE: SUBJECTIVE: Chart was reviewed and the patient interviewed. Also discussed the patient's condition with the staff and reviewed records and labs. The patient is still in a depressed mood. The patient also is still withdrawn and interacting minimally with others. The patient is also feeling hopeless at times. She also still needs lots of redirections and still unable to have a safe plan for self-care. ASSESSMENT: The patient is still considered to be gravely disabled. TREATMENT PLAN: Continue to monitor her behavior and her condition closely. Also, continue adjusting psychotropic medications and work on behavioral modification. Also working on placement issue. JOB# [id number]
--- NOTE | 2019-08-15 14:19 | Internal Medicine Prog Note ---
Internal Medicine Subjective - Subjective Patient seen and examined:: with staff, chart reviewed Patient is:: awake, verbal, interactive, ambulating, confused Per staff patient has:: no adverse event, no episodes of fall, eating well, tolerating meds Internal Medicine Objective - Results Recent Labs: Laboratory Last Values POC Glucose 112 MG/DL (70 - 105) H 08/11/19 21:00 Triglycerides 162 mg/dL (<150) H 12/31/18 08:04 Cholesterol 234 mg/dL (<200) H 12/31/18 08:04 LDL Cholesterol Direct 155 mg/dL (75-193) 12/31/18 08:04 HDL Cholesterol 62 mg/dL (23-92) 12/31/18 08:04 - Physical Exam Vitals and I&O: Vital Signs Temp 97.5 F 08/15/19 08:00 Pulse 68 08/15/19 08:00 Resp 18 08/15/19 08:00 BP 120/69 08/15/19 08:00 Pulse Ox 100 08/15/19 08:00 Intake & Output 08/14/19 08/15/19 08/15/19 18:59 06:59 18:59 Intake Total 800 360 Balance 800 360 Intake: Oral 800 360 Other: # Voids 4 2 # Bowel Movements 1 0 Stool Characteristics Soft Soft Active Medications: Current Medications Acetaminophen (Tylenol) 650 mg PO Q4H PRN PRN Reason: Pain (Mild 1-3) Stop: 10/07/19 17:51 Acetaminophen (Tylenol) 650 mg PO Q4H PRN PRN Reason: Temperature above 101 Stop: 10/07/19 17:53 Alendronate Sodium (Fosamax) 70 mg PO We@0630 [facility] Stop: 09/02/19 06:29 Last Admin: 08/15/19 06:41 Dose: 70 mg Calcium/Vitamin D (Oscal W/Vitamin D) 1 tab PO DAILY [facility] Stop: 09/08/19 08:59 Last Admin: 08/15/19 09:28 Dose: 1 tab Donepezil HCl (Aricept) 10 mg PO [facility] Last Admin: 08/14/19 20:17 Dose: 10 mg General: demented, thin HEENT: NC/AT, PERRLA, EOMI Neck: Supple, No JVD, No thyromegaly Lungs: CTAB Cardiovascular: RRR, Normal S1, Normal S2, with murmur Abdomen: soft, thin, non-distended, positive bowel sound Extremities: excoriation Neurological: no change Internal Medicine Assmt/Plan - Assessment Assessment: alzheimers dementa elevated chol djd osteoporosis ho old left hip fx - Plan Plan: fall precaution nutritional support cont on calcium supplemetn - resume fosamax will cont to follow dw rn add mvi Nutritional Asmnt/Malnutr-PDOC - Dietary Evaluation Malnutrition Findings (Please click <Entered> for more info): Nutritional Asmnt/Malnutrition Start: 01/04/19 09: 50 Text: Status: Complete Freq: Protocol: Document 01/04/19 14:59 LCHENG (Rec: 01/04/19 15:06 [email or web address] [email or web address]) Nutritional Asmnt/Malnutrition Patient General Information Nutritional Screening Moderate Risk Diagnosis psychosis Pertinent Medical Hx/Surgical Hx dementia, DJD, osteoporosis Subjective Information pt seen lying in bed, awake and alert, stated food has beed great. Pt is not a big eater. Encourage to eat balanced meals and pt agreed with it. Per EMR, PO intake 75 -100% Current Diet Order/ Nutrition Support regular Pertinent Medications reviewed Pertinent Labs 12/31 reviewed Nutritional Hx/Data Height 1.65 m Height (Calculated Centimeters) 165.1 Current Weight (lbs) 74.843 kg Weight (Calculated Kilograms) 74.8 Weight (Calculated Grams) 71883.7 [place] Body Weight 125 Body Mass Index (BMI) 27.4 Weight Status Overweight GI Symptoms GI Symptoms None Last BM 01/04 x 2 Difficult in: None Skin Integrity/Comment: intact Current %PO Good (75-100%) Estimated Nutritional Goals BEE in Kcals: Using Current wt Calories/Kcals/Kg 23-27 Kcals Calculated 5472-3710 Protein: Using Current wt Protein g/k.8 Protein Calculated 60 Fluid: ml 1725-1998ml (1ml/kcal) Nutritional Problem No current Nutrition Prob Problem N/A Malnutrition Alert Is there a minimum of two criteria No selected? Query Text:Check all the applicable criteria. A minimum of two criteria are recommended for diagnosis of either severe or non-severe malnutrition. Malnutrition Related to Morbid Obesity Malnutrition related to morbid obesity No Intervention/Recommendation Comments 1. Continue with regular diet as ordered. 2. Monitor PO intake, wt, labs and skin integrity 3. F/U as low risk in 7 days Expected Outcomes/Goals Expected Outcomes/Goals 1. PO intake to meet at least 75% of nutritional needs. 2. Wt stability, skin to remain intact, labs to approach WNL.
--- NOTE | 2019-08-15 14:19 | Internal Medicine Prog Note ---
Internal Medicine Subjective - Subjective Patient seen and examined:: with staff, chart reviewed Patient is:: awake, verbal, interactive, ambulating, confused Per staff patient has:: no adverse event, no episodes of fall, eating well, tolerating meds Internal Medicine Objective - Results Recent Labs: Laboratory Last Values POC Glucose 112 MG/DL (70 - 105) H 08/11/19 21:00 Triglycerides 162 mg/dL (<150) H 12/31/18 08:04 Cholesterol 234 mg/dL (<200) H 12/31/18 08:04 LDL Cholesterol Direct 155 mg/dL (75-193) 12/31/18 08:04 HDL Cholesterol 62 mg/dL (23-92) 12/31/18 08:04 - Physical Exam Vitals and I&O: Vital Signs Temp 97.1 F 08/14/19 06:14 Pulse 75 08/14/19 06:14 Resp 20 08/14/19 08:00 BP 121/73 08/14/19 06:14 Pulse Ox 95 08/14/19 06:14 Intake & Output 08/13/19 08/14/19 08/14/19 18:59 06:59 18:59 Intake Total 1100 120 Balance 1100 120 Intake: Oral 1100 120 Other: # Voids 4 1 # Bowel Movements 1 Stool Characteristics Soft Soft Brown Active Medications: Current Medications Acetaminophen (Tylenol) 650 mg PO Q4H PRN PRN Reason: Pain (Mild 1-3) Stop: 10/07/19 17:51 Acetaminophen (Tylenol) 650 mg PO Q4H PRN PRN Reason: Temperature above 101 Stop: 10/07/19 17:53 Alendronate Sodium (Fosamax) 70 mg PO We@0630 [facility] Stop: 09/02/19 06:29 Last Admin: 08/08/19 06:18 Dose: 70 mg Calcium/Vitamin D (Oscal W/Vitamin D) 1 tab PO DAILY [facility] Stop: 09/08/19 08:59 Last Admin: 08/14/19 08:21 Dose: 1 tab Donepezil HCl (Aricept) 10 mg PO [facility] Last Admin: 08/13/19 21:05 Dose: 10 mg General: demented, thin HEENT: NC/AT, PERRLA, EOMI Neck: Supple, No JVD, No thyromegaly Lungs: CTAB Cardiovascular: RRR, Normal S1, Normal S2, with murmur Abdomen: soft, thin, non-distended, positive bowel sound Extremities: excoriation Neurological: no change Internal Medicine Assmt/Plan - Assessment Assessment: alzheimers dementa elevated chol djd osteoporosis ho old left hip fx - Plan Plan: fall precaution nutritional support cont on calcium supplemetn - resume fosamax will cont to follow dw rn add mvi Nutritional Asmnt/Malnutr-PDOC - Dietary Evaluation Malnutrition Findings (Please click <Entered> for more info): Nutritional Asmnt/Malnutrition Start: 01/04/19 09: 50 Text: Status: Complete Freq: Protocol: Document 01/04/19 14:59 LCHENG (Rec: 01/04/19 15:06 [email or web address] [email or web address]) Nutritional Asmnt/Malnutrition Patient General Information Nutritional Screening Moderate Risk Diagnosis psychosis Pertinent Medical Hx/Surgical Hx dementia, DJD, osteoporosis Subjective Information pt seen lying in bed, awake and alert, stated food has beed great. Pt is not a big eater. Encourage to eat balanced meals and pt agreed with it. Per EMR, PO intake 75 -100% Current Diet Order/ Nutrition Support regular Pertinent Medications reviewed Pertinent Labs 12/31 reviewed Nutritional Hx/Data Height 1.65 m Height (Calculated Centimeters) 165.1 Current Weight (lbs) 74.843 kg Weight (Calculated Kilograms) 74.8 Weight (Calculated Grams) 46367.7 [place] Body Weight 125 Body Mass Index (BMI) 27.4 Weight Status Overweight GI Symptoms GI Symptoms None Last BM 01/04 x 2 Difficult in: None Skin Integrity/Comment: intact Current %PO Good (75-100%) Estimated Nutritional Goals BEE in Kcals: Using Current wt Calories/Kcals/Kg 23-27 Kcals Calculated 8483-4181 Protein: Using Current wt Protein g/k.8 Protein Calculated 60 Fluid: ml 1725-1998ml (1ml/kcal) Nutritional Problem No current Nutrition Prob Problem N/A Malnutrition Alert Is there a minimum of two criteria No selected? Query Text:Check all the applicable criteria. A minimum of two criteria are recommended for diagnosis of either severe or non-severe malnutrition. Malnutrition Related to Morbid Obesity Malnutrition related to morbid obesity No Intervention/Recommendation Comments 1. Continue with regular diet as ordered. 2. Monitor PO intake, wt, labs and skin integrity 3. F/U as low risk in 7 days Expected Outcomes/Goals Expected Outcomes/Goals 1. PO intake to meet at least 75% of nutritional needs. 2. Wt stability, skin to remain intact, labs to approach WNL.
[2019-08-16] MEDS: Multivitamin w/ Minerals Tab PO SCH (08:34)
[2019-08-16] MEDS: Calcium Carb/Vit D 500 mg/200 U Tab PO SCH (08:34)
--- NOTE | 2019-08-16 15:38 | Internal Medicine Prog Note ---
Internal Medicine Subjective - Subjective Patient seen and examined:: with staff, chart reviewed Patient is:: awake, verbal, interactive, ambulating, confused Per staff patient has:: no adverse event, no episodes of fall, eating well, tolerating meds Internal Medicine Objective - Results Recent Labs: Laboratory Last Values POC Glucose 112 MG/DL (70 - 105) H 08/11/19 21:00 Triglycerides 162 mg/dL (<150) H 12/31/18 08:04 Cholesterol 234 mg/dL (<200) H 12/31/18 08:04 LDL Cholesterol Direct 155 mg/dL (75-193) 12/31/18 08:04 HDL Cholesterol 62 mg/dL (23-92) 12/31/18 08:04 - Physical Exam Vitals and I&O: Vital Signs Temp 98.4 F 08/16/19 14:00 Pulse 68 08/16/19 14:00 Resp 18 08/16/19 14:00 BP 103/50 08/16/19 14:00 Pulse Ox 99 08/16/19 14:00 Intake & Output 08/15/19 08/16/19 08/16/19 18:59 06:59 18:59 Intake Total 1300 120 120 Balance 1300 120 120 Intake: Oral 1300 120 120 Other: # Voids 3 2 2 # Bowel Movements 0 0 0 Stool Characteristics Soft Active Medications: Current Medications Acetaminophen (Tylenol) 650 mg PO Q4H PRN PRN Reason: Pain (Mild 1-3) Stop: 10/07/19 17:51 Acetaminophen (Tylenol) 650 mg PO Q4H PRN PRN Reason: Temperature above 101 Stop: 10/07/19 17:53 Alendronate Sodium (Fosamax) 70 mg PO We@0630 [facility] Stop: 09/02/19 06:29 Last Admin: 08/15/19 06:41 Dose: 70 mg Calcium/Vitamin D (Oscal W/Vitamin D) 1 tab PO DAILY [facility] Stop: 09/08/19 08:59 Last Admin: 08/16/19 08:34 Dose: 1 tab Donepezil HCl (Aricept) 10 mg PO HS [facility] Last Admin: 08/15/19 20:39 Dose: 10 mg General: demented, thin HEENT: NC/AT, PERRLA, EOMI Neck: Supple, No JVD, No thyromegaly Lungs: CTAB Cardiovascular: RRR, Normal S1, Normal S2, with murmur Abdomen: soft, thin, non-distended, positive bowel sound Extremities: excoriation Neurological: no change Internal Medicine Assmt/Plan - Assessment Assessment: alzheimers dementa elevated chol djd osteoporosis ho old left hip fx - Plan Plan: fall precaution nutritional support cont on calcium supplemetn - resume fosamax will cont to follow dw rn add mvi Nutritional Asmnt/Malnutr-PDOC - Dietary Evaluation Malnutrition Findings (Please click <Entered> for more info): Nutritional Asmnt/Malnutrition Start: 01/04/19 09: 50 Text: Status: Complete Freq: Protocol: Document 01/04/19 14:59 TARIK (Rec: 01/04/19 15:06 TARIK [email or web address]) Nutritional Asmnt/Malnutrition Patient General Information Nutritional Screening Moderate Risk Diagnosis psychosis Pertinent Medical Hx/Surgical Hx dementia, DJD, osteoporosis Subjective Information pt seen lying in bed, awake and alert, stated food has beed great. Pt is not a big eater. Encourage to eat balanced meals and pt agreed with it. Per EMR, PO intake 75 -100% Current Diet Order/ Nutrition Support regular Pertinent Medications reviewed Pertinent Labs 12/31 reviewed Nutritional Hx/Data Height 1.65 m Height (Calculated Centimeters) 165.1 Current Weight (lbs) 74.843 kg Weight (Calculated Kilograms) 74.8 Weight (Calculated Grams) 93025.7 [place] Body Weight 125 Body Mass Index (BMI) 27.4 Weight Status Overweight GI Symptoms GI Symptoms None Last BM 01/04 x 2 Difficult in: None Skin Integrity/Comment: intact Current %PO Good (75-100%) Estimated Nutritional Goals BEE in Kcals: Using Current wt Calories/Kcals/Kg 23-27 Kcals Calculated 0903-7718 Protein: Using Current wt Protein g/k.8 Protein Calculated 60 Fluid: ml 1725-1998ml (1ml/kcal) Nutritional Problem No current Nutrition Prob Problem N/A Malnutrition Alert Is there a minimum of two criteria No selected? Query Text:Check all the applicable criteria. A minimum of two criteria are recommended for diagnosis of either severe or non-severe malnutrition. Malnutrition Related to Morbid Obesity Malnutrition related to morbid obesity No Intervention/Recommendation Comments 1. Continue with regular diet as ordered. 2. Monitor PO intake, wt, labs and skin integrity 3. F/U as low risk in 7 days Expected Outcomes/Goals Expected Outcomes/Goals 1. PO intake to meet at least 75% of nutritional needs. 2. Wt stability, skin to remain intact, labs to approach WNL.
[2019-08-17] MEDS: Multivitamin w/ Minerals Tab PO SCH (08:47)
[2019-08-17] MEDS: Calcium Carb/Vit D 500 mg/200 U Tab PO SCH (08:47)
--- NOTE | 2019-08-17 12:16 | Progress Notes ---
DATE: SUBJECTIVE: Chart was reviewed and the patient interviewed. Also discussed the patient's condition with the staff and reviewed records and labs. The patient is still in a depressed mood. The patient also is still confused and wandering around, but at the same time, no behavioral issues. She also continued to comply with taking her medications with no side effects of medications. ASSESSMENT: The patient is still gravely disabled and waiting for placement. TREATMENT PLAN: Continue to monitor behavior and condition. Also, continue to work in regard to her discharge plans and followup. JOB# [id number]
--- NOTE | 2019-08-17 16:28 | Internal Medicine Prog Note ---
Internal Medicine Subjective - Subjective Patient seen and examined:: with staff, chart reviewed Patient is:: awake, verbal, interactive, ambulating, confused Per staff patient has:: no adverse event, no episodes of fall, eating well, tolerating meds Internal Medicine Objective - Results Recent Labs: Laboratory Last Values POC Glucose 112 MG/DL (70 - 105) H 08/11/19 21:00 Triglycerides 162 mg/dL (<150) H 12/31/18 08:04 Cholesterol 234 mg/dL (<200) H 12/31/18 08:04 LDL Cholesterol Direct 155 mg/dL (75-193) 12/31/18 08:04 HDL Cholesterol 62 mg/dL (23-92) 12/31/18 08:04 - Physical Exam Vitals and I&O: Vital Signs Temp 98.0 F 08/17/19 14:00 Pulse 72 08/17/19 14:00 Resp 20 08/17/19 14:00 BP 106/60 08/17/19 14:00 Pulse Ox 97 08/17/19 14:00 Intake & Output 08/16/19 08/17/19 08/17/19 18:59 06:59 18:59 Intake Total 1120 120 Balance 1120 120 Intake: Oral 1120 120 Other: # Voids 4 2 # Bowel Movements 1 Active Medications: Current Medications Acetaminophen (Tylenol) 650 mg PO Q4H PRN PRN Reason: Pain (Mild 1-3) Stop: 10/07/19 17:51 Acetaminophen (Tylenol) 650 mg PO Q4H PRN PRN Reason: Temperature above 101 Stop: 10/07/19 17:53 Alendronate Sodium (Fosamax) 70 mg PO We@0630 [facility] Stop: 09/02/19 06:29 Last Admin: 08/15/19 06:41 Dose: 70 mg Calcium/Vitamin D (Oscal W/Vitamin D) 1 tab PO DAILY [facility] Stop: 09/08/19 08:59 Last Admin: 08/17/19 08:47 Dose: 1 tab Donepezil HCl (Aricept) 10 mg PO HS [facility] Last Admin: 08/16/19 20:51 Dose: 10 mg General: demented, thin HEENT: NC/AT, PERRLA, EOMI Neck: Supple, No JVD, No thyromegaly Lungs: CTAB Cardiovascular: RRR, Normal S1, Normal S2, with murmur Abdomen: soft, thin, non-distended, positive bowel sound Extremities: excoriation Neurological: no change Internal Medicine Assmt/Plan - Assessment Assessment: alzheimers dementa elevated chol djd osteoporosis ho old left hip fx - Plan Plan: fall precaution nutritional support cont on calcium supplemetn - resume fosamax will cont to follow dw rn add mvi Nutritional Asmnt/Malnutr-PDOC - Dietary Evaluation Malnutrition Findings (Please click <Entered> for more info): Nutritional Asmnt/Malnutrition Start: 01/04/19 09: 50 Text: Status: Complete Freq: Protocol: Document 01/04/19 14:59 LCHENG (Rec: 01/04/19 15:06 LCHENG [email or web address]) Nutritional Asmnt/Malnutrition Patient General Information Nutritional Screening Moderate Risk Diagnosis psychosis Pertinent Medical Hx/Surgical Hx dementia, DJD, osteoporosis Subjective Information pt seen lying in bed, awake and alert, stated food has beed great. Pt is not a big eater. Encourage to eat balanced meals and pt agreed with it. Per EMR, PO intake 75 -100% Current Diet Order/ Nutrition Support regular Pertinent Medications reviewed Pertinent Labs 12/31 reviewed Nutritional Hx/Data Height 1.65 m Height (Calculated Centimeters) 165.1 Current Weight (lbs) 74.843 kg Weight (Calculated Kilograms) 74.8 Weight (Calculated Grams) 19254.7 [place] Body Weight 125 Body Mass Index (BMI) 27.4 Weight Status Overweight GI Symptoms GI Symptoms None Last BM 01/04 x 2 Difficult in: None Skin Integrity/Comment: intact Current %PO Good (75-100%) Estimated Nutritional Goals BEE in Kcals: Using Current wt Calories/Kcals/Kg 23-27 Kcals Calculated 7542-4096 Protein: Using Current wt Protein g/k.8 Protein Calculated 60 Fluid: ml 1725-1998ml (1ml/kcal) Nutritional Problem No current Nutrition Prob Problem N/A Malnutrition Alert Is there a minimum of two criteria No selected? Query Text:Check all the applicable criteria. A minimum of two criteria are recommended for diagnosis of either severe or non-severe malnutrition. Malnutrition Related to Morbid Obesity Malnutrition related to morbid obesity No Intervention/Recommendation Comments 1. Continue with regular diet as ordered. 2. Monitor PO intake, wt, labs and skin integrity 3. F/U as low risk in 7 days Expected Outcomes/Goals Expected Outcomes/Goals 1. PO intake to meet at least 75% of nutritional needs. 2. Wt stability, skin to remain intact, labs to approach WNL.
--- NOTE | 2019-08-17 22:27 | Progress Notes ---
DATE: SUBJECTIVE: Chart was reviewed and the patient interviewed. Also discussed the patient's condition with the staff and reviewed records and labs. The patient's affect is brighter, but she is still in a depressed mood. The patient also still seems slightly confused, but at the same time, she is walking around with a walker for protection because of high fall risk. She also is less agitated and she also is still asking about going home and about discharge plans, but so far no discharge plans. She is still unable to provide safe plan for self-care and considered to be gravely disabled. ASSESSMENT: The patient is still considered to be gravely disabled and waiting for placement. TREATMENT PLAN: Continue current treatment and medications and continue to follow up closely. [facility]# [id number]
[2019-08-18] MEDS: Calcium Carb/Vit D 500 mg/200 U Tab PO SCH (08:23)
[2019-08-18] MEDS: Multivitamin w/ Minerals Tab PO SCH (08:23)
--- NOTE | 2019-08-18 15:07 | Internal Medicine Prog Note ---
Internal Medicine Subjective - Subjective Service Date: 08/18/19 Patient is:: awake, verbal, interactive, ambulating, confused Per staff patient has:: no adverse event, no episodes of fall, eating well, tolerating meds Internal Medicine Objective - Results Recent Labs: Laboratory Last Values POC Glucose 112 MG/DL (70 - 105) H 08/11/19 21:00 Triglycerides 162 mg/dL (<150) H 12/31/18 08:04 Cholesterol 234 mg/dL (<200) H 12/31/18 08:04 LDL Cholesterol Direct 155 mg/dL (75-193) 12/31/18 08:04 HDL Cholesterol 62 mg/dL (23-92) 12/31/18 08:04 - Physical Exam Vitals and I&O: Vital Signs Temp 97.7 F 08/18/19 14:16 Pulse 91 08/18/19 14:16 Resp 20 08/18/19 14:16 BP 114/76 08/18/19 14:16 Pulse Ox 97 08/18/19 14:16 Intake & Output 08/17/19 08/18/19 08/18/19 18:59 06:59 18:59 Intake Total 900 120 Output Total 61 Balance 900 59 Intake: Oral 900 120 Output: Urine 60 Stool 1 Urine/Stool Mix 0 Other: # Voids 3 # Bowel Movements 1 1 Stool Characteristics Soft Soft Formed Formed Brown Brown Active Medications: Current Medications Acetaminophen (Tylenol) 650 mg PO Q4H PRN PRN Reason: Pain (Mild 1-3) Stop: 10/07/19 17:51 Acetaminophen (Tylenol) 650 mg PO Q4H PRN PRN Reason: Temperature above 101 Stop: 10/07/19 17:53 Alendronate Sodium (Fosamax) 70 mg PO We@0630 [facility] Stop: 09/02/19 06:29 Last Admin: 08/15/19 06:41 Dose: 70 mg Calcium/Vitamin D (Oscal W/Vitamin D) 1 tab PO DAILY [facility] Stop: 09/08/19 08:59 Last Admin: 08/18/19 08:23 Dose: 1 tab Donepezil HCl (Aricept) 10 mg PO [facility] Last Admin: 08/17/19 20:38 Dose: 10 mg General: demented, thin HEENT: NC/AT, PERRLA, EOMI Neck: Supple, No JVD, No thyromegaly Lungs: CTAB Cardiovascular: RRR, Normal S1, Normal S2, with murmur Abdomen: soft, thin, non-distended, positive bowel sound Extremities: excoriation Neurological: no change Internal Medicine Assmt/Plan - Assessment Assessment: alzheimers dementa elevated chol djd osteoporosis - Plan Plan: fall precaution nutritional support cont on calcium supplement will cont to follow dw rn add mvi placement ongoing Nutritional Asmnt/Malnutr-PDOC - Dietary Evaluation Malnutrition Findings (Please click <Entered> for more info): Nutritional Asmnt/Malnutrition Start: 01/04/19 09: 50 Text: Status: Complete Freq: Protocol: Document 01/04/19 14:59 TARIK (Rec: 01/04/19 15:06 TARIK [id number]) Nutritional Asmnt/Malnutrition Patient General Information Nutritional Screening Moderate Risk Diagnosis psychosis Pertinent Medical Hx/Surgical Hx dementia, DJD, osteoporosis Subjective Information pt seen lying in bed, awake and alert, stated food has beed great. Pt is not a big eater. Encourage to eat balanced meals and pt agreed with it. Per EMR, PO intake 75 -100% Current Diet Order/ Nutrition Support regular Pertinent Medications reviewed Pertinent Labs / reviewed Nutritional Hx/Data Height 5 ft 5 in Height (Calculated Centimeters) 165.1 Current Weight (lbs) 165 lb Weight (Calculated Kilograms) 74.8 Weight (Calculated Grams) 15077.7 [place] Body Weight 125 Body Mass Index (BMI) 27.4 Weight Status Overweight GI Symptoms GI Symptoms None Last BM 01/04 x 2 Difficult in: None Skin Integrity/Comment: intact Current %PO Good (75-100%) Estimated Nutritional Goals BEE in Kcals: Using Current wt Calories/Kcals/Kg 23-27 Kcals Calculated 7017-4677 Protein: Using Current wt Protein g/k.8 Protein Calculated 60 Fluid: ml 1725-1998ml (1ml/kcal) Nutritional Problem No current Nutrition Prob Problem N/A Malnutrition Alert Is there a minimum of two criteria No selected? Query Text:Check all the applicable criteria. A minimum of two criteria are recommended for diagnosis of either severe or non-severe malnutrition. Malnutrition Related to Morbid Obesity Malnutrition related to morbid obesity No Intervention/Recommendation Comments 1. Continue with regular diet as ordered. 2. Monitor PO intake, wt, labs and skin integrity 3. F/U as low risk in 7 days Expected Outcomes/Goals Expected Outcomes/Goals 1. PO intake to meet at least 75% of nutritional needs. 2. Wt stability, skin to remain intact, labs to approach WNL.
--- NOTE | 2019-08-18 19:56 | Progress Notes ---
DATE: SUBJECTIVE: Chart was reviewed and the patient interviewed. Also discussed the patient's condition with the staff and reviewed records and labs. The patient continued to be in a depressed mood. The patient also has sad affect. The patient also is still anxious about her discharge plans and about placement issue. Otherwise, the patient is compliant with taking her medications with no side effects of medications. ASSESSMENT: The patient is still confused and considered to be gravely disabled. TREATMENT PLAN: Continue monitoring her behavior and her condition closely. Also, still working on discharge plans and waiting for placement issue. JOB# [id number]
[2019-08-19] MEDS: Calcium Carb/Vit D 500 mg/200 U Tab PO SCH (08:55)
[2019-08-19] MEDS: Multivitamin w/ Minerals Tab PO SCH (08:55)
--- NOTE | 2019-08-19 13:10 | Internal Medicine Prog Note ---
Internal Medicine Subjective - Subjective Service Date: 08/19/19 Patient is:: awake, verbal, interactive, ambulating, confused Per staff patient has:: no adverse event, no episodes of fall, eating well, tolerating meds Internal Medicine Objective - Results Recent Labs: Laboratory Last Values POC Glucose 112 MG/DL (70 - 105) H 08/11/19 21:00 Triglycerides 162 mg/dL (<150) H 12/31/18 08:04 Cholesterol 234 mg/dL (<200) H 12/31/18 08:04 LDL Cholesterol Direct 155 mg/dL (75-193) 12/31/18 08:04 HDL Cholesterol 62 mg/dL (23-92) 12/31/18 08:04 - Physical Exam Vitals and I&O: Vital Signs Temp 97.1 F 08/19/19 05:57 Pulse 78 08/19/19 05:57 Resp 20 08/19/19 05:57 BP 117/68 08/19/19 05:57 Pulse Ox 97 08/19/19 05:57 Intake & Output 08/18/19 08/19/19 08/19/19 18:59 06:59 18:59 Intake Total 950 240 Balance 950 240 Intake: Oral 950 240 Other: # Voids 4 1 # Bowel Movements 1 Stool Characteristics Soft Soft Formed Formed Brown Brown Active Medications: Current Medications Acetaminophen (Tylenol) 650 mg PO Q4H PRN PRN Reason: Pain (Mild 1-3) Stop: 10/07/19 17:51 Acetaminophen (Tylenol) 650 mg PO Q4H PRN PRN Reason: Temperature above 101 Stop: 10/07/19 17:53 Alendronate Sodium (Fosamax) 70 mg PO We@0630 [facility] Stop: 09/02/19 06:29 Last Admin: 08/15/19 06:41 Dose: 70 mg Calcium/Vitamin D (Oscal W/Vitamin D) 1 tab PO DAILY [facility] Stop: 09/08/19 08:59 Last Admin: 08/19/19 08:55 Dose: 1 tab Donepezil HCl (Aricept) 10 mg PO [facility] Last Admin: 08/18/19 20:38 Dose: 10 mg General: demented, thin HEENT: NC/AT, PERRLA, EOMI Neck: Supple, No JVD, No thyromegaly Lungs: CTAB Cardiovascular: RRR, Normal S1, Normal S2, with murmur Abdomen: soft, thin, non-distended, positive bowel sound Extremities: excoriation Neurological: no change Internal Medicine Assmt/Plan - Assessment Assessment: alzheimers dementa elevated chol djd osteoporosis - Plan Plan: fall precaution nutritional support cont on calcium supplement will cont to follow dw rn add mvi placement ongoing Nutritional Asmnt/Malnutr-PDOC - Dietary Evaluation Malnutrition Findings (Please click <Entered> for more info): Nutritional Asmnt/Malnutrition Start: 01/04/19 09: 50 Text: Status: Complete Freq: Protocol: Document 01/04/19 14:59 LCHENG (Rec: 01/04/19 15:06 LCHENG [email or web address]) Nutritional Asmnt/Malnutrition Patient General Information Nutritional Screening Moderate Risk Diagnosis psychosis Pertinent Medical Hx/Surgical Hx dementia, DJD, osteoporosis Subjective Information pt seen lying in bed, awake and alert, stated food has beed great. Pt is not a big eater. Encourage to eat balanced meals and pt agreed with it. Per EMR, PO intake 75 -100% Current Diet Order/ Nutrition Support regular Pertinent Medications reviewed Pertinent Labs / reviewed Nutritional Hx/Data Height 5 ft 5 in Height (Calculated Centimeters) 165.1 Current Weight (lbs) 165 lb Weight (Calculated Kilograms) 74.8 Weight (Calculated Grams) 66440.7 [place] Body Weight 125 Body Mass Index (BMI) 27.4 Weight Status Overweight GI Symptoms GI Symptoms None Last BM 01/04 x 2 Difficult in: None Skin Integrity/Comment: intact Current %PO Good (75-100%) Estimated Nutritional Goals BEE in Kcals: Using Current wt Calories/Kcals/Kg 23-27 Kcals Calculated 7164-3023 Protein: Using Current wt Protein g/k.8 Protein Calculated 60 Fluid: ml 1725-1998ml (1ml/kcal) Nutritional Problem No current Nutrition Prob Problem N/A Malnutrition Alert Is there a minimum of two criteria No selected? Query Text:Check all the applicable criteria. A minimum of two criteria are recommended for diagnosis of either severe or non-severe malnutrition. Malnutrition Related to Morbid Obesity Malnutrition related to morbid obesity No Intervention/Recommendation Comments 1. Continue with regular diet as ordered. 2. Monitor PO intake, wt, labs and skin integrity 3. F/U as low risk in 7 days Expected Outcomes/Goals Expected Outcomes/Goals 1. PO intake to meet at least 75% of nutritional needs. 2. Wt stability, skin to remain intact, labs to approach WNL.
[2019-08-20] MEDS: Calcium Carb/Vit D 500 mg/200 U Tab PO SCH (08:32)
[2019-08-20] MEDS: Multivitamin w/ Minerals Tab PO SCH (08:32)
--- NOTE | 2019-08-20 14:20 | Internal Medicine Prog Note ---
Internal Medicine Subjective - Subjective Patient seen and examined:: with staff, chart reviewed Patient is:: awake, verbal, interactive, ambulating, confused Per staff patient has:: no adverse event, no episodes of fall, eating well, tolerating meds Internal Medicine Objective - Results Recent Labs: Laboratory Last Values POC Glucose 112 MG/DL (70 - 105) H 08/11/19 21:00 Triglycerides 162 mg/dL (<150) H 12/31/18 08:04 Cholesterol 234 mg/dL (<200) H 12/31/18 08:04 LDL Cholesterol Direct 155 mg/dL (75-193) 12/31/18 08:04 HDL Cholesterol 62 mg/dL (23-92) 12/31/18 08:04 - Physical Exam Vitals and I&O: Vital Signs Temp 97.9 F 08/20/19 06:07 Pulse 74 08/20/19 06:07 Resp 18 08/20/19 07:46 BP 117/74 08/20/19 06:07 Pulse Ox 96 08/20/19 06:07 Intake & Output 08/19/19 08/20/19 08/20/19 18:59 06:59 18:59 Intake Total 950 240 Balance 950 240 Intake: Oral 950 240 Other: # Voids 3 2 # Bowel Movements 1 Stool Characteristics Soft Soft Formed Formed Brown Brown Active Medications: Current Medications Acetaminophen (Tylenol) 650 mg PO Q4H PRN PRN Reason: Pain (Mild 1-3) Stop: 10/07/19 17:51 Acetaminophen (Tylenol) 650 mg PO Q4H PRN PRN Reason: Temperature above 101 Stop: 10/07/19 17:53 Alendronate Sodium (Fosamax) 70 mg PO We@0630 [facility] Stop: 09/02/19 06:29 Last Admin: 08/15/19 06:41 Dose: 70 mg Calcium/Vitamin D (Oscal W/Vitamin D) 1 tab PO DAILY [facility] Stop: 09/08/19 08:59 Last Admin: 08/20/19 08:32 Dose: 1 tab Donepezil HCl (Aricept) 10 mg PO [facility] Last Admin: 08/19/19 21:09 Dose: 10 mg General: demented, thin HEENT: NC/AT, PERRLA, EOMI Neck: Supple, No JVD, No thyromegaly Lungs: CTAB Cardiovascular: RRR, Normal S1, Normal S2, with murmur Abdomen: soft, thin, non-distended, positive bowel sound Extremities: excoriation Neurological: no change Internal Medicine Assmt/Plan - Assessment Assessment: alzheimers dementa elevated chol djd osteoporosis ho old left hip fx - Plan Plan: fall precaution nutritional support cont on calcium supplemetn - resume fosamax will cont to follow dw rn add mvi Nutritional Asmnt/Malnutr-PDOC - Dietary Evaluation Malnutrition Findings (Please click <Entered> for more info): Nutritional Asmnt/Malnutrition Start: 01/04/19 09: 50 Text: Status: Complete Freq: Protocol: Document 01/04/19 14:59 ANUELG (Rec: 01/04/19 15:06 TARIK [id number]) Nutritional Asmnt/Malnutrition Patient General Information Nutritional Screening Moderate Risk Diagnosis psychosis Pertinent Medical Hx/Surgical Hx dementia, DJD, osteoporosis Subjective Information pt seen lying in bed, awake and alert, stated food has beed great. Pt is not a big eater. Encourage to eat balanced meals and pt agreed with it. Per EMR, PO intake 75 -100% Current Diet Order/ Nutrition Support regular Pertinent Medications reviewed Pertinent Labs 12/31 reviewed Nutritional Hx/Data Height 1.65 m Height (Calculated Centimeters) 165.1 Current Weight (lbs) 74.843 kg Weight (Calculated Kilograms) 74.8 Weight (Calculated Grams) 92595.7 [place] Body Weight 125 Body Mass Index (BMI) 27.4 Weight Status Overweight GI Symptoms GI Symptoms None Last BM 01/04 x 2 Difficult in: None Skin Integrity/Comment: intact Current %PO Good (75-100%) Estimated Nutritional Goals BEE in Kcals: Using Current wt Calories/Kcals/Kg 23-27 Kcals Calculated 4005-3739 Protein: Using Current wt Protein g/k.8 Protein Calculated 60 Fluid: ml 1725-1998ml (1ml/kcal) Nutritional Problem No current Nutrition Prob Problem N/A Malnutrition Alert Is there a minimum of two criteria No selected? Query Text:Check all the applicable criteria. A minimum of two criteria are recommended for diagnosis of either severe or non-severe malnutrition. Malnutrition Related to Morbid Obesity Malnutrition related to morbid obesity No Intervention/Recommendation Comments 1. Continue with regular diet as ordered. 2. Monitor PO intake, wt, labs and skin integrity 3. F/U as low risk in 7 days Expected Outcomes/Goals Expected Outcomes/Goals 1. PO intake to meet at least 75% of nutritional needs. 2. Wt stability, skin to remain intact, labs to approach WNL.
[2019-08-21] MEDS: Calcium Carb/Vit D 500 mg/200 U Tab PO SCH (09:54)
[2019-08-21] MEDS: Multivitamin w/ Minerals Tab PO SCH (09:54)
--- NOTE | 2019-08-21 14:41 | Internal Medicine Prog Note ---
Internal Medicine Subjective - Subjective Patient seen and examined:: with staff, chart reviewed Patient is:: awake, verbal, interactive, ambulating, confused Per staff patient has:: no adverse event, no episodes of fall, eating well, tolerating meds Internal Medicine Objective - Results Recent Labs: Laboratory Last Values POC Glucose 112 MG/DL (70 - 105) H 08/11/19 21:00 Triglycerides 162 mg/dL (<150) H 12/31/18 08:04 Cholesterol 234 mg/dL (<200) H 12/31/18 08:04 LDL Cholesterol Direct 155 mg/dL (75-193) 12/31/18 08:04 HDL Cholesterol 62 mg/dL (23-92) 12/31/18 08:04 - Physical Exam Vitals and I&O: Vital Signs Temp 97 F 08/21/19 14:18 Pulse 69 08/21/19 14:18 Resp 18 08/21/19 14:18 BP 109/58 08/21/19 14:18 Pulse Ox 99 08/21/19 14:18 Intake & Output 08/20/19 08/21/19 08/21/19 18:59 06:59 18:59 Intake Total 800 420 Balance 800 420 Intake: Oral 800 420 Other: # Voids 4 2 # Bowel Movements 1 Stool Characteristics Soft Formed Brown Active Medications: Current Medications Acetaminophen (Tylenol) 650 mg PO Q4H PRN PRN Reason: Pain (Mild 1-3) Stop: 10/07/19 17:51 Acetaminophen (Tylenol) 650 mg PO Q4H PRN PRN Reason: Temperature above 101 Stop: 10/07/19 17:53 Alendronate Sodium (Fosamax) 70 mg PO We@0630 [facility] Stop: 09/02/19 06:29 Last Admin: 08/15/19 06:41 Dose: 70 mg Calcium/Vitamin D (Oscal W/Vitamin D) 1 tab PO DAILY [facility] Stop: 09/08/19 08:59 Last Admin: 08/21/19 09:54 Dose: 1 tab Donepezil HCl (Aricept) 10 mg PO HS [facility] Last Admin: 08/20/19 20:51 Dose: 10 mg General: demented, thin HEENT: NC/AT, PERRLA, EOMI Neck: Supple, No JVD, No thyromegaly Lungs: CTAB Cardiovascular: RRR, Normal S1, Normal S2, with murmur Abdomen: soft, thin, non-distended, positive bowel sound Extremities: excoriation Neurological: no change Internal Medicine Assmt/Plan - Assessment Assessment: alzheimers dementa elevated chol djd osteoporosis ho old left hip fx - Plan Plan: fall precaution nutritional support cont on calcium supplemetn - resume fosamax will cont to follow dw rn add mvi Nutritional Asmnt/Malnutr-PDOC - Dietary Evaluation Malnutrition Findings (Please click <Entered> for more info): Nutritional Asmnt/Malnutrition Start: 01/04/19 09: 50 Text: Status: Complete Freq: Protocol: Document 01/04/19 14:59 LCHENG (Rec: 01/04/19 15:06 LCHENG [email or web address]) Nutritional Asmnt/Malnutrition Patient General Information Nutritional Screening Moderate Risk Diagnosis psychosis Pertinent Medical Hx/Surgical Hx dementia, DJD, osteoporosis Subjective Information pt seen lying in bed, awake and alert, stated food has beed great. Pt is not a big eater. Encourage to eat balanced meals and pt agreed with it. Per EMR, PO intake 75 -100% Current Diet Order/ Nutrition Support regular Pertinent Medications reviewed Pertinent Labs 12/31 reviewed Nutritional Hx/Data Height 1.65 m Height (Calculated Centimeters) 165.1 Current Weight (lbs) 74.843 kg Weight (Calculated Kilograms) 74.8 Weight (Calculated Grams) 13238.7 [place] Body Weight 125 Body Mass Index (BMI) 27.4 Weight Status Overweight GI Symptoms GI Symptoms None Last BM 01/04 x 2 Difficult in: None Skin Integrity/Comment: intact Current %PO Good (75-100%) Estimated Nutritional Goals BEE in Kcals: Using Current wt Calories/Kcals/Kg 23-27 Kcals Calculated 0180-4094 Protein: Using Current wt Protein g/k.8 Protein Calculated 60 Fluid: ml 1725-1998ml (1ml/kcal) Nutritional Problem No current Nutrition Prob Problem N/A Malnutrition Alert Is there a minimum of two criteria No selected? Query Text:Check all the applicable criteria. A minimum of two criteria are recommended for diagnosis of either severe or non-severe malnutrition. Malnutrition Related to Morbid Obesity Malnutrition related to morbid obesity No Intervention/Recommendation Comments 1. Continue with regular diet as ordered. 2. Monitor PO intake, wt, labs and skin integrity 3. F/U as low risk in 7 days Expected Outcomes/Goals Expected Outcomes/Goals 1. PO intake to meet at least 75% of nutritional needs. 2. Wt stability, skin to remain intact, labs to approach WNL.
[2019-08-22] MEDS: Multivitamin w/ Minerals Tab PO SCH (11:07)
[2019-08-22] MEDS: Calcium Carb/Vit D 500 mg/200 U Tab PO SCH (11:07)
--- NOTE | 2019-08-22 16:36 | Internal Medicine Prog Note ---
Internal Medicine Subjective - Subjective Patient seen and examined:: with staff, chart reviewed Patient is:: awake, verbal, interactive, ambulating, confused Per staff patient has:: no adverse event, no episodes of fall, eating well, tolerating meds Internal Medicine Objective - Results Recent Labs: Laboratory Last Values POC Glucose 112 MG/DL (70 - 105) H 08/11/19 21:00 Triglycerides 162 mg/dL (<150) H 12/31/18 08:04 Cholesterol 234 mg/dL (<200) H 12/31/18 08:04 LDL Cholesterol Direct 155 mg/dL (75-193) 12/31/18 08:04 HDL Cholesterol 62 mg/dL (23-92) 12/31/18 08:04 - Physical Exam Vitals and I&O: Vital Signs Temp 97.6 F 08/22/19 14:23 Pulse 63 08/22/19 14:23 Resp 18 08/22/19 14:23 BP 116/57 08/22/19 14:23 Pulse Ox 97 08/22/19 14:23 Intake & Output 08/21/19 08/22/19 08/22/19 18:59 06:59 18:59 Intake Total 300 Balance 300 Intake: Oral 300 Other: # Voids 3 3 # Bowel Movements 1 0 Stool Characteristics Soft Soft Formed Formed Brown Brown Active Medications: Current Medications Acetaminophen (Tylenol) 650 mg PO Q4H PRN PRN Reason: Pain (Mild 1-3) Stop: 10/07/19 17:51 Acetaminophen (Tylenol) 650 mg PO Q4H PRN PRN Reason: Temperature above 101 Stop: 10/07/19 17:53 Alendronate Sodium (Fosamax) 70 mg PO We@0630 [facility] Stop: 09/02/19 06:29 Last Admin: 08/22/19 06:32 Dose: 70 mg Calcium/Vitamin D (Oscal W/Vitamin D) 1 tab PO DAILY [facility] Stop: 09/08/19 08:59 Last Admin: 08/22/19 11:07 Dose: 1 tab Donepezil HCl (Aricept) 10 mg PO HS [facility] Last Admin: 08/21/19 20:17 Dose: 10 mg General: demented, thin HEENT: NC/AT, PERRLA, EOMI Neck: Supple, No JVD, No thyromegaly Lungs: CTAB Cardiovascular: RRR, Normal S1, Normal S2, with murmur Abdomen: soft, thin, non-distended, positive bowel sound Extremities: excoriation Neurological: no change Internal Medicine Assmt/Plan - Assessment Assessment: alzheimers dementa elevated chol djd osteoporosis ho old left hip fx - Plan Plan: fall precaution nutritional support cont on calcium supplemetn - resume fosamax will cont to follow dw rn add mvi Nutritional Asmnt/Malnutr-PDOC - Dietary Evaluation Malnutrition Findings (Please click <Entered> for more info): Nutritional Asmnt/Malnutrition Start: 01/04/19 09: 50 Text: Status: Complete Freq: Protocol: Document 01/04/19 14:59 LCJOSEG (Rec: 01/04/19 15:06 [email or web address] [id number]) Nutritional Asmnt/Malnutrition Patient General Information Nutritional Screening Moderate Risk Diagnosis psychosis Pertinent Medical Hx/Surgical Hx dementia, DJD, osteoporosis Subjective Information pt seen lying in bed, awake and alert, stated food has beed great. Pt is not a big eater. Encourage to eat balanced meals and pt agreed with it. Per EMR, PO intake 75 -100% Current Diet Order/ Nutrition Support regular Pertinent Medications reviewed Pertinent Labs 12/31 reviewed Nutritional Hx/Data Height 1.65 m Height (Calculated Centimeters) 165.1 Current Weight (lbs) 74.843 kg Weight (Calculated Kilograms) 74.8 Weight (Calculated Grams) 20388.7 [place] Body Weight 125 Body Mass Index (BMI) 27.4 Weight Status Overweight GI Symptoms GI Symptoms None Last BM 01/04 x 2 Difficult in: None Skin Integrity/Comment: intact Current %PO Good (75-100%) Estimated Nutritional Goals BEE in Kcals: Using Current wt Calories/Kcals/Kg 23-27 Kcals Calculated 3733-3897 Protein: Using Current wt Protein g/k.8 Protein Calculated 60 Fluid: ml 1725-1998ml (1ml/kcal) Nutritional Problem No current Nutrition Prob Problem N/A Malnutrition Alert Is there a minimum of two criteria No selected? Query Text:Check all the applicable criteria. A minimum of two criteria are recommended for diagnosis of either severe or non-severe malnutrition. Malnutrition Related to Morbid Obesity Malnutrition related to morbid obesity No Intervention/Recommendation Comments 1. Continue with regular diet as ordered. 2. Monitor PO intake, wt, labs and skin integrity 3. F/U as low risk in 7 days Expected Outcomes/Goals Expected Outcomes/Goals 1. PO intake to meet at least 75% of nutritional needs. 2. Wt stability, skin to remain intact, labs to approach WNL.
[2019-08-23] MEDS: Calcium Carb/Vit D 500 mg/200 U Tab PO SCH (09:15)
[2019-08-23] MEDS: Multivitamin w/ Minerals Tab PO SCH (09:15)
--- NOTE | 2019-08-23 14:46 | Internal Medicine Prog Note ---
Internal Medicine Subjective - Subjective Patient seen and examined:: with staff, chart reviewed Patient is:: awake, verbal, interactive, ambulating, confused Per staff patient has:: no adverse event, no episodes of fall, eating well, tolerating meds Internal Medicine Objective - Results Recent Labs: Laboratory Last Values POC Glucose 112 MG/DL (70 - 105) H 08/11/19 21:00 Triglycerides 162 mg/dL (<150) H 12/31/18 08:04 Cholesterol 234 mg/dL (<200) H 12/31/18 08:04 LDL Cholesterol Direct 155 mg/dL (75-193) 12/31/18 08:04 HDL Cholesterol 62 mg/dL (23-92) 12/31/18 08:04 - Physical Exam Vitals and I&O: Vital Signs Temp 98.1 F 08/23/19 06:36 Pulse 74 08/23/19 06:36 Resp 18 08/23/19 08:00 BP 123/83 08/23/19 06:36 Pulse Ox 98 08/23/19 06:36 Intake & Output 08/22/19 08/23/19 08/23/19 18:59 06:59 18:59 Intake Total 120 Balance 120 Intake: Oral 120 Other: # Voids 2 Stool Characteristics Soft Soft Soft Formed Formed Formed Brown Brown Brown Active Medications: Current Medications Acetaminophen (Tylenol) 650 mg PO Q4H PRN PRN Reason: Pain (Mild 1-3) Stop: 10/07/19 17:51 Acetaminophen (Tylenol) 650 mg PO Q4H PRN PRN Reason: Temperature above 101 Stop: 10/07/19 17:53 Alendronate Sodium (Fosamax) 70 mg PO We@0630 [facility] Stop: 09/02/19 06:29 Last Admin: 08/22/19 06:32 Dose: 70 mg Calcium/Vitamin D (Oscal W/Vitamin D) 1 tab PO DAILY [facility] Stop: 09/08/19 08:59 Last Admin: 08/23/19 09:15 Dose: 1 tab Donepezil HCl (Aricept) 10 mg PO HS [facility] Last Admin: 08/22/19 20:12 Dose: 10 mg General: demented, thin HEENT: NC/AT, PERRLA, EOMI Neck: Supple, No JVD, No thyromegaly Lungs: CTAB Cardiovascular: RRR, Normal S1, Normal S2, with murmur Abdomen: soft, thin, non-distended, positive bowel sound Extremities: excoriation Neurological: no change Internal Medicine Assmt/Plan - Assessment Assessment: alzheimers dementa elevated chol djd osteoporosis ho old left hip fx - Plan Plan: fall precaution nutritional support cont on calcium supplemetn - resume fosamax will cont to follow dw rn add mvi Nutritional Asmnt/Malnutr-PDOC - Dietary Evaluation Malnutrition Findings (Please click <Entered> for more info): Nutritional Asmnt/Malnutrition Start: 01/04/19 09: 50 Text: Status: Complete Freq: Protocol: Document 01/04/19 14:59 LCHENG (Rec: 01/04/19 15:06 LCHENG [email or web address]) Nutritional Asmnt/Malnutrition Patient General Information Nutritional Screening Moderate Risk Diagnosis psychosis Pertinent Medical Hx/Surgical Hx dementia, DJD, osteoporosis Subjective Information pt seen lying in bed, awake and alert, stated food has beed great. Pt is not a big eater. Encourage to eat balanced meals and pt agreed with it. Per EMR, PO intake 75 -100% Current Diet Order/ Nutrition Support regular Pertinent Medications reviewed Pertinent Labs 12/31 reviewed Nutritional Hx/Data Height 1.65 m Height (Calculated Centimeters) 165.1 Current Weight (lbs) 74.843 kg Weight (Calculated Kilograms) 74.8 Weight (Calculated Grams) 94480.7 [place] Body Weight 125 Body Mass Index (BMI) 27.4 Weight Status Overweight GI Symptoms GI Symptoms None Last BM 01/04 x 2 Difficult in: None Skin Integrity/Comment: intact Current %PO Good (75-100%) Estimated Nutritional Goals BEE in Kcals: Using Current wt Calories/Kcals/Kg 23-27 Kcals Calculated 4323-2262 Protein: Using Current wt Protein g/k.8 Protein Calculated 60 Fluid: ml 1725-1998ml (1ml/kcal) Nutritional Problem No current Nutrition Prob Problem N/A Malnutrition Alert Is there a minimum of two criteria No selected? Query Text:Check all the applicable criteria. A minimum of two criteria are recommended for diagnosis of either severe or non-severe malnutrition. Malnutrition Related to Morbid Obesity Malnutrition related to morbid obesity No Intervention/Recommendation Comments 1. Continue with regular diet as ordered. 2. Monitor PO intake, wt, labs and skin integrity 3. F/U as low risk in 7 days Expected Outcomes/Goals Expected Outcomes/Goals 1. PO intake to meet at least 75% of nutritional needs. 2. Wt stability, skin to remain intact, labs to approach WNL.
[2019-08-24] MEDS: Calcium Carb/Vit D 500 mg/200 U Tab PO SCH (08:30)
[2019-08-24] MEDS: Multivitamin w/ Minerals Tab PO SCH (08:30)
--- NOTE | 2019-08-24 14:40 | Internal Medicine Prog Note ---
Internal Medicine Subjective - Subjective Patient seen and examined:: with staff, chart reviewed Patient is:: awake, verbal, interactive, ambulating, confused Per staff patient has:: no adverse event, no episodes of fall, eating well, tolerating meds Internal Medicine Objective - Results Recent Labs: Laboratory Last Values POC Glucose 112 MG/DL (70 - 105) H 08/11/19 21:00 Triglycerides 162 mg/dL (<150) H 12/31/18 08:04 Cholesterol 234 mg/dL (<200) H 12/31/18 08:04 LDL Cholesterol Direct 155 mg/dL (75-193) 12/31/18 08:04 HDL Cholesterol 62 mg/dL (23-92) 12/31/18 08:04 - Physical Exam Vitals and I&O: Vital Signs Temp 97.6 F 08/24/19 14:27 Pulse 70 08/24/19 14:27 Resp 18 08/24/19 14:27 BP 120/78 08/24/19 14:27 Pulse Ox 99 08/24/19 14:27 Intake & Output 08/23/19 08/24/19 08/24/19 18:59 06:59 18:59 Intake Total 1100 120 Balance 1100 120 Intake: Oral 1100 120 Other: # Voids 4 3 # Bowel Movements 1 Stool Characteristics Soft Soft Formed Formed Brown Brown Active Medications: Current Medications Acetaminophen (Tylenol) 650 mg PO Q4H PRN PRN Reason: Pain (Mild 1-3) Stop: 10/07/19 17:51 Acetaminophen (Tylenol) 650 mg PO Q4H PRN PRN Reason: Temperature above 101 Stop: 10/07/19 17:53 Alendronate Sodium (Fosamax) 70 mg PO We@0630 [facility] Stop: 09/02/19 06:29 Last Admin: 08/22/19 06:32 Dose: 70 mg Calcium/Vitamin D (Oscal W/Vitamin D) 1 tab PO DAILY [facility] Stop: 09/08/19 08:59 Last Admin: 08/24/19 08:30 Dose: 1 tab Donepezil HCl (Aricept) 10 mg PO HS [facility] Last Admin: 08/23/19 20:19 Dose: 10 mg General: demented, thin HEENT: NC/AT, PERRLA, EOMI Neck: Supple, No JVD, No thyromegaly Lungs: CTAB Cardiovascular: RRR, Normal S1, Normal S2, with murmur Abdomen: soft, thin, non-distended, positive bowel sound Extremities: excoriation Neurological: no change Internal Medicine Assmt/Plan - Assessment Assessment: alzheimers dementa elevated chol djd osteoporosis ho old left hip fx - Plan Plan: fall precaution nutritional support cont on calcium supplemetn - resume fosamax will cont to follow dw rn add mvi Nutritional Asmnt/Malnutr-PDOC - Dietary Evaluation Malnutrition Findings (Please click <Entered> for more info): Nutritional Asmnt/Malnutrition Start: 01/04/19 09: 50 Text: Status: Complete Freq: Protocol: Document 01/04/19 14:59 ANUELG (Rec: 01/04/19 15:06 TARIK [id number]) Nutritional Asmnt/Malnutrition Patient General Information Nutritional Screening Moderate Risk Diagnosis psychosis Pertinent Medical Hx/Surgical Hx dementia, DJD, osteoporosis Subjective Information pt seen lying in bed, awake and alert, stated food has beed great. Pt is not a big eater. Encourage to eat balanced meals and pt agreed with it. Per EMR, PO intake 75 -100% Current Diet Order/ Nutrition Support regular Pertinent Medications reviewed Pertinent Labs 12/31 reviewed Nutritional Hx/Data Height 1.65 m Height (Calculated Centimeters) 165.1 Current Weight (lbs) 74.843 kg Weight (Calculated Kilograms) 74.8 Weight (Calculated Grams) 15615.7 [place] Body Weight 125 Body Mass Index (BMI) 27.4 Weight Status Overweight GI Symptoms GI Symptoms None Last BM 01/04 x 2 Difficult in: None Skin Integrity/Comment: intact Current %PO Good (75-100%) Estimated Nutritional Goals BEE in Kcals: Using Current wt Calories/Kcals/Kg 23-27 Kcals Calculated 3007-6969 Protein: Using Current wt Protein g/k.8 Protein Calculated 60 Fluid: ml 1725-1998ml (1ml/kcal) Nutritional Problem No current Nutrition Prob Problem N/A Malnutrition Alert Is there a minimum of two criteria No selected? Query Text:Check all the applicable criteria. A minimum of two criteria are recommended for diagnosis of either severe or non-severe malnutrition. Malnutrition Related to Morbid Obesity Malnutrition related to morbid obesity No Intervention/Recommendation Comments 1. Continue with regular diet as ordered. 2. Monitor PO intake, wt, labs and skin integrity 3. F/U as low risk in 7 days Expected Outcomes/Goals Expected Outcomes/Goals 1. PO intake to meet at least 75% of nutritional needs. 2. Wt stability, skin to remain intact, labs to approach WNL.
[2019-08-25] MEDS: Calcium Carb/Vit D 500 mg/200 U Tab PO SCH (08:21)
[2019-08-25] MEDS: Multivitamin w/ Minerals Tab PO SCH (08:21)
--- NOTE | 2019-08-25 14:23 | Internal Medicine Prog Note ---
Internal Medicine Subjective - Subjective Patient seen and examined:: with staff, chart reviewed Patient is:: awake, verbal, interactive, ambulating, confused Per staff patient has:: no adverse event, no episodes of fall, eating well, tolerating meds Internal Medicine Objective - Results Recent Labs: Laboratory Last Values POC Glucose 112 MG/DL (70 - 105) H 08/11/19 21:00 Triglycerides 162 mg/dL (<150) H 12/31/18 08:04 Cholesterol 234 mg/dL (<200) H 12/31/18 08:04 LDL Cholesterol Direct 155 mg/dL (75-193) 12/31/18 08:04 HDL Cholesterol 62 mg/dL (23-92) 12/31/18 08:04 - Physical Exam Vitals and I&O: Vital Signs Temp 97.8 F 08/25/19 06:06 Pulse 70 08/25/19 06:06 Resp 18 08/25/19 08:00 BP 121/75 08/25/19 06:06 Pulse Ox 98 08/25/19 06:06 Intake & Output 08/24/19 08/25/19 08/25/19 18:59 06:59 18:59 Intake Total 300 Balance 300 Intake: Oral 300 Other: # Voids 1 # Bowel Movements 0 Stool Characteristics Soft Soft Formed Brown Brown Active Medications: Current Medications Acetaminophen (Tylenol) 650 mg PO Q4H PRN PRN Reason: Pain (Mild 1-3) Stop: 10/07/19 17:51 Acetaminophen (Tylenol) 650 mg PO Q4H PRN PRN Reason: Temperature above 101 Stop: 10/07/19 17:53 Alendronate Sodium (Fosamax) 70 mg PO We@0630 [facility] Stop: 09/02/19 06:29 Last Admin: 08/22/19 06:32 Dose: 70 mg Calcium/Vitamin D (Oscal W/Vitamin D) 1 tab PO DAILY [facility] Stop: 09/08/19 08:59 Last Admin: 08/25/19 08:21 Dose: 1 tab Donepezil HCl (Aricept) 10 mg PO HS [facility] Last Admin: 08/24/19 20:48 Dose: 10 mg General: demented, thin HEENT: NC/AT, PERRLA, EOMI Neck: Supple, No JVD, No thyromegaly Lungs: CTAB Cardiovascular: RRR, Normal S1, Normal S2, with murmur Abdomen: soft, thin, non-distended, positive bowel sound Extremities: excoriation Neurological: no change Internal Medicine Assmt/Plan - Assessment Assessment: alzheimers dementa elevated chol djd osteoporosis ho old left hip fx - Plan Plan: fall precaution nutritional support cont on calcium supplemetn - resume fosamax will cont to follow dw rn add mvi Nutritional Asmnt/Malnutr-PDOC - Dietary Evaluation Malnutrition Findings (Please click <Entered> for more info): Nutritional Asmnt/Malnutrition Start: 01/04/19 09: 50 Text: Status: Complete Freq: Protocol: Document 01/04/19 14:59 LCHENG (Rec: 01/04/19 15:06 LCHENG [email or web address]) Nutritional Asmnt/Malnutrition Patient General Information Nutritional Screening Moderate Risk Diagnosis psychosis Pertinent Medical Hx/Surgical Hx dementia, DJD, osteoporosis Subjective Information pt seen lying in bed, awake and alert, stated food has beed great. Pt is not a big eater. Encourage to eat balanced meals and pt agreed with it. Per EMR, PO intake 75 -100% Current Diet Order/ Nutrition Support regular Pertinent Medications reviewed Pertinent Labs 12/31 reviewed Nutritional Hx/Data Height 1.65 m Height (Calculated Centimeters) 165.1 Current Weight (lbs) 74.843 kg Weight (Calculated Kilograms) 74.8 Weight (Calculated Grams) 13430.7 [place] Body Weight 125 Body Mass Index (BMI) 27.4 Weight Status Overweight GI Symptoms GI Symptoms None Last BM 01/04 x 2 Difficult in: None Skin Integrity/Comment: intact Current %PO Good (75-100%) Estimated Nutritional Goals BEE in Kcals: Using Current wt Calories/Kcals/Kg 23-27 Kcals Calculated 2038-2761 Protein: Using Current wt Protein g/k.8 Protein Calculated 60 Fluid: ml 1725-1998ml (1ml/kcal) Nutritional Problem No current Nutrition Prob Problem N/A Malnutrition Alert Is there a minimum of two criteria No selected? Query Text:Check all the applicable criteria. A minimum of two criteria are recommended for diagnosis of either severe or non-severe malnutrition. Malnutrition Related to Morbid Obesity Malnutrition related to morbid obesity No Intervention/Recommendation Comments 1. Continue with regular diet as ordered. 2. Monitor PO intake, wt, labs and skin integrity 3. F/U as low risk in 7 days Expected Outcomes/Goals Expected Outcomes/Goals 1. PO intake to meet at least 75% of nutritional needs. 2. Wt stability, skin to remain intact, labs to approach WNL.
[2019-08-26] MEDS: Multivitamin w/ Minerals Tab PO SCH (08:24)
[2019-08-26] MEDS: Calcium Carb/Vit D 500 mg/200 U Tab PO SCH (08:24)
--- NOTE | 2019-08-26 14:45 | Internal Medicine Prog Note ---
Internal Medicine Subjective - Subjective Patient seen and examined:: with staff, chart reviewed Patient is:: awake, verbal, interactive, ambulating, confused Per staff patient has:: no adverse event, no episodes of fall, eating well, tolerating meds Internal Medicine Objective - Results Recent Labs: Laboratory Last Values POC Glucose 112 MG/DL (70 - 105) H 08/11/19 21:00 Triglycerides 162 mg/dL (<150) H 12/31/18 08:04 Cholesterol 234 mg/dL (<200) H 12/31/18 08:04 LDL Cholesterol Direct 155 mg/dL (75-193) 12/31/18 08:04 HDL Cholesterol 62 mg/dL (23-92) 12/31/18 08:04 - Physical Exam Vitals and I&O: Vital Signs Temp 97.1 F 08/26/19 14:00 Pulse 70 08/26/19 14:00 Resp 18 08/26/19 14:00 BP 92/57 08/26/19 14:00 Pulse Ox 96 08/26/19 14:00 Intake & Output 08/25/19 08/26/19 08/26/19 18:59 06:59 18:59 Intake Total 900 360 Balance 900 360 Intake: Oral 900 360 Other: # Voids 3 1 # Bowel Movements 1 Stool Characteristics Soft Soft Soft Brown Formed Brown Brown Active Medications: Current Medications Acetaminophen (Tylenol) 650 mg PO Q4H PRN PRN Reason: Pain (Mild 1-3) Stop: 10/07/19 17:51 Acetaminophen (Tylenol) 650 mg PO Q4H PRN PRN Reason: Temperature above 101 Stop: 10/07/19 17:53 Alendronate Sodium (Fosamax) 70 mg PO We@0630 [facility] Stop: 09/02/19 06:29 Last Admin: 08/22/19 06:32 Dose: 70 mg Calcium/Vitamin D (Oscal W/Vitamin D) 1 tab PO DAILY [facility] Stop: 09/08/19 08:59 Last Admin: 08/26/19 08:24 Dose: 1 tab Donepezil HCl (Aricept) 10 mg PO [facility] Last Admin: 08/25/19 21:20 Dose: 10 mg General: demented, thin HEENT: NC/AT, PERRLA, EOMI Neck: Supple, No JVD, No thyromegaly Lungs: CTAB Cardiovascular: RRR, Normal S1, Normal S2, with murmur Abdomen: soft, thin, non-distended, positive bowel sound Extremities: excoriation Neurological: no change Internal Medicine Assmt/Plan - Assessment Assessment: alzheimers dementa elevated chol djd osteoporosis ho old left hip fx - Plan Plan: fall precaution nutritional support cont on calcium supplemetn - resume fosamax will cont to follow dw rn add mvi Nutritional Asmnt/Malnutr-PDOC - Dietary Evaluation Malnutrition Findings (Please click <Entered> for more info): Nutritional Asmnt/Malnutrition Start: 01/04/19 09: 50 Text: Status: Complete Freq: Protocol: Document 01/04/19 14:59 TARIK (Rec: 01/04/19 15:06 TARIK [id number]) Nutritional Asmnt/Malnutrition Patient General Information Nutritional Screening Moderate Risk Diagnosis psychosis Pertinent Medical Hx/Surgical Hx dementia, DJD, osteoporosis Subjective Information pt seen lying in bed, awake and alert, stated food has beed great. Pt is not a big eater. Encourage to eat balanced meals and pt agreed with it. Per EMR, PO intake 75 -100% Current Diet Order/ Nutrition Support regular Pertinent Medications reviewed Pertinent Labs 12/31 reviewed Nutritional Hx/Data Height 1.65 m Height (Calculated Centimeters) 165.1 Current Weight (lbs) 74.843 kg Weight (Calculated Kilograms) 74.8 Weight (Calculated Grams) 94847.7 [place] Body Weight 125 Body Mass Index (BMI) 27.4 Weight Status Overweight GI Symptoms GI Symptoms None Last BM 01/04 x 2 Difficult in: None Skin Integrity/Comment: intact Current %PO Good (75-100%) Estimated Nutritional Goals BEE in Kcals: Using Current wt Calories/Kcals/Kg 23-27 Kcals Calculated 3236-5807 Protein: Using Current wt Protein g/k.8 Protein Calculated 60 Fluid: ml 1725-1998ml (1ml/kcal) Nutritional Problem No current Nutrition Prob Problem N/A Malnutrition Alert Is there a minimum of two criteria No selected? Query Text:Check all the applicable criteria. A minimum of two criteria are recommended for diagnosis of either severe or non-severe malnutrition. Malnutrition Related to Morbid Obesity Malnutrition related to morbid obesity No Intervention/Recommendation Comments 1. Continue with regular diet as ordered. 2. Monitor PO intake, wt, labs and skin integrity 3. F/U as low risk in 7 days Expected Outcomes/Goals Expected Outcomes/Goals 1. PO intake to meet at least 75% of nutritional needs. 2. Wt stability, skin to remain intact, labs to approach WNL.
--- NOTE | 2019-08-26 20:34 | Progress Notes ---
DATE: 08/21/2019 SUBJECTIVE: Chart was reviewed and the patient interviewed. Also discussed the patient's condition with the staff and reviewed records and labs. The patient is still calm and cooperative, but she still has episodes of anxiety because of her long hospital stay: The patient also is still withdrawn and still has difficulty with the fact that she has been in the hospital for a long time. She also is still interacting minimally with others. Otherwise, the patient is cooperative with the staff and she is still following directions. ASSESSMENT: The patient is still considered to be gravely disabled and waiting for placement. TREATMENT PLAN: Continue current medications and treatment and continue monitoring her medications and continue to follow up. JOB# [id number]
--- NOTE | 2019-08-26 20:34 | Progress Notes ---
DATE: 08/23/2019 PSYCHIATRIC PROGRESS NOTE SUBJECTIVE: Chart reviewed and the patient interviewed. Also discussed the patient's condition with the staff and reviewed records and labs. The patient's affect is brighter. She is still in a depressed mood and she is still asking questions in regard to when can she be discharged and go "home." She also is still confused and wandering around the unit. No behavior problems. ASSESSMENT: The patient is still anxious and depressed and is still waiting for placement. TREATMENT PLAN: We will continue to monitor her behavior and her condition closely. Also, continue adjusting psychotropic medications and continue to work on her placement issue and discharge plans. JOB# [id number]
--- NOTE | 2019-08-26 20:34 | Progress Notes ---
DATE: SUBJECTIVE: Chart was reviewed and discussed the patient's condition with the staff and reviewed records and labs. The patient is still calm and cooperative. She is still irrigated. Depressed mood and anxious. The patient also is interacting more with peers and with others. She is still unable to provide safe plan for self-care. ASSESSMENT: The patient is still considered to be gravely disabled. TREATMENT PLAN: Continue monitoring her behavior and continue current medications. Also working on placement issue. [facility]# [id number]
--- NOTE | 2019-08-26 20:34 | Progress Notes ---
DATE: 08/20/2019 SUBJECTIVE: Chart was reviewed and the patient interviewed. Also discussed the patient's condition with the staff and reviewed records and labs. The patient is still anxious and is still in a depressed mood. The patient also is interacting slightly more with peers and with others. She is still wandering about her discharge date and about what is happening, but no information to give her yet and waiting for case management assistantvice president & general manager [employer] [place] [employer] attorneys for placement. Otherwise, the patient is compliant with taking her medications with no side effects of medications. ASSESSMENT: The patient is not suicidal or homicidal, but waiting for placement. TREATMENT PLAN: Continue current treatment and current medications. So, we will continue to monitor her condition and working on her discharge plans. JOB# [id number]
--- NOTE | 2019-08-26 20:34 | Progress Notes ---
DATE: 08/22/2019 Case was discussed with staff of the patient, reviewed records. i have seen her many times covering for Dr. Mason, awaiting placement. She is sleeping well, eating well. No suicidal ideation, no homicidal ideation, no paranoia, demented, confused. No side effects. We will continue outpatient group therapy, milieu therapy, adjust medication as needed. JOB# [id number] [facility]
--- NOTE | 2019-08-26 20:34 | Progress Notes ---
DATE: 08/24/2019 SUBJECTIVE: Chart was reviewed and the patient interviewed. Also discussed the patient's condition with the staff and reviewed records and labs. The patient continued to be pleasantly confused. The patient also is still wandering around the unit in a confused state. The patient also is cooperative. She is compliant with taking her medications. Otherwise, the patient is waiting for placement. ASSESSMENT: The patient is still considered to be gravely disabled. TREATMENT PLAN: Continue to monitor behavior and condition and continue working on discharge plans and placement issue. JOB# [id number]
--- NOTE | 2019-08-26 20:35 | Progress Notes ---
DATE: 08/25/2019 SUBJECTIVE: The patient was seen and evaluated. The patient's chart was reviewed. No acute events reported overnight. Today on [id number] evaluation, denies any SI or HI. ASSESSMENT AND PLAN: Severely demented, awaiting placement. JOB# [id number]
--- NOTE | 2019-08-27 00:22 | Progress Notes ---
DATE: 08/26/[address] Mason. SUBJECTIVE: No overnight acute events. Today on [id number] evaluation, mild anxiety. No SI, HI. ASSESSMENT AND PLAN: Gravely disabled secondary to the patient's severe dementia. Continue working with mental protective services case worker for safe disposition. JOB# [id number]
[2019-08-27] MEDS: Calcium Carb/Vit D 500 mg/200 U Tab PO SCH (09:04)
[2019-08-27] MEDS: Multivitamin w/ Minerals Tab PO SCH (09:04)
--- NOTE | 2019-08-27 12:59 | Internal Medicine Prog Note ---
Internal Medicine Subjective - Subjective Patient seen and examined:: with staff, chart reviewed Patient is:: awake, verbal, interactive, ambulating, confused Per staff patient has:: no adverse event, no episodes of fall, eating well, tolerating meds Internal Medicine Objective - Results Recent Labs: Laboratory Last Values POC Glucose 112 MG/DL (70 - 105) H 08/11/19 21:00 Triglycerides 162 mg/dL (<150) H 12/31/18 08:04 Cholesterol 234 mg/dL (<200) H 12/31/18 08:04 LDL Cholesterol Direct 155 mg/dL (75-193) 12/31/18 08:04 HDL Cholesterol 62 mg/dL (23-92) 12/31/18 08:04 - Physical Exam Vitals and I&O: Vital Signs Temp 98.6 F 08/27/19 06:13 Pulse 63 08/27/19 06:13 Resp 18 08/27/19 08:00 BP 126/68 08/27/19 06:13 Pulse Ox 100 08/27/19 06:13 Intake & Output 08/26/19 08/27/19 08/27/19 18:59 06:59 18:59 Intake Total 1200 60 Balance 1200 60 Intake: Oral 1200 60 Other: # Voids 4 3 # Bowel Movements 0 0 Stool Characteristics Soft Soft Soft Brown Formed Formed Brown Brown Active Medications: Current Medications Acetaminophen (Tylenol) 650 mg PO Q4H PRN PRN Reason: Pain (Mild 1-3) Stop: 10/07/19 17:51 Acetaminophen (Tylenol) 650 mg PO Q4H PRN PRN Reason: Temperature above 101 Stop: 10/07/19 17:53 Alendronate Sodium (Fosamax) 70 mg PO We@0630 [facility] Stop: 09/02/19 06:29 Last Admin: 08/22/19 06:32 Dose: 70 mg Calcium/Vitamin D (Oscal W/Vitamin D) 1 tab PO DAILY [facility] Stop: 09/08/19 08:59 Last Admin: 08/27/19 09:04 Dose: 1 tab Donepezil HCl (Aricept) 10 mg PO HS [facility] Last Admin: 08/26/19 20:35 Dose: 10 mg General: demented, thin HEENT: NC/AT, PERRLA, EOMI Neck: Supple, No JVD, No thyromegaly Lungs: CTAB Cardiovascular: RRR, Normal S1, Normal S2, with murmur Abdomen: soft, thin, non-distended, positive bowel sound Extremities: excoriation Neurological: no change Internal Medicine Assmt/Plan - Assessment Assessment: alzheimers dementa elevated chol djd osteoporosis ho old left hip fx - Plan Plan: fall precaution nutritional support cont on calcium supplemetn - resume fosamax will cont to follow dw rn add mvi Nutritional Asmnt/Malnutr-PDOC - Dietary Evaluation Malnutrition Findings (Please click <Entered> for more info): Nutritional Asmnt/Malnutrition Start: 01/04/19 09: 50 Text: Status: Complete Freq: Protocol: Document 01/04/19 14:59 ANUELG (Rec: 01/04/19 15:06 TARIK [email or web address]) Nutritional Asmnt/Malnutrition Patient General Information Nutritional Screening Moderate Risk Diagnosis psychosis Pertinent Medical Hx/Surgical Hx dementia, DJD, osteoporosis Subjective Information pt seen lying in bed, awake and alert, stated food has beed great. Pt is not a big eater. Encourage to eat balanced meals and pt agreed with it. Per EMR, PO intake 75 -100% Current Diet Order/ Nutrition Support regular Pertinent Medications reviewed Pertinent Labs 12/31 reviewed Nutritional Hx/Data Height 1.65 m Height (Calculated Centimeters) 165.1 Current Weight (lbs) 74.843 kg Weight (Calculated Kilograms) 74.8 Weight (Calculated Grams) 79450.7 [place] Body Weight 125 Body Mass Index (BMI) 27.4 Weight Status Overweight GI Symptoms GI Symptoms None Last BM 01/04 x 2 Difficult in: None Skin Integrity/Comment: intact Current %PO Good (75-100%) Estimated Nutritional Goals BEE in Kcals: Using Current wt Calories/Kcals/Kg 23-27 Kcals Calculated 2340-6528 Protein: Using Current wt Protein g/k.8 Protein Calculated 60 Fluid: ml 1725-1998ml (1ml/kcal) Nutritional Problem No current Nutrition Prob Problem N/A Malnutrition Alert Is there a minimum of two criteria No selected? Query Text:Check all the applicable criteria. A minimum of two criteria are recommended for diagnosis of either severe or non-severe malnutrition. Malnutrition Related to Morbid Obesity Malnutrition related to morbid obesity No Intervention/Recommendation Comments 1. Continue with regular diet as ordered. 2. Monitor PO intake, wt, labs and skin integrity 3. F/U as low risk in 7 days Expected Outcomes/Goals Expected Outcomes/Goals 1. PO intake to meet at least 75% of nutritional needs. 2. Wt stability, skin to remain intact, labs to approach WNL.
--- NOTE | 2019-08-27 20:50 | Progress Notes ---
DATE: 08/27/2019 The patient is gravely disabled, confused, pending a safe disposition. Medications were noted. No events, calm on exam. Medications were reviewed. JOB# [id number]
[2019-08-28] MEDS: Calcium Carb/Vit D 500 mg/200 U Tab PO SCH (09:35)
[2019-08-28] MEDS: Multivitamin w/ Minerals Tab PO SCH (09:36)
--- NOTE | 2019-08-28 15:52 | Internal Medicine Prog Note ---
Internal Medicine Subjective - Subjective Patient seen and examined:: with staff, chart reviewed Patient is:: awake, verbal, interactive, ambulating, confused Per staff patient has:: no adverse event, no episodes of fall, eating well, tolerating meds Internal Medicine Objective - Results Recent Labs: Laboratory Last Values POC Glucose 112 MG/DL (70 - 105) H 08/11/19 21:00 Triglycerides 162 mg/dL (<150) H 12/31/18 08:04 Cholesterol 234 mg/dL (<200) H 12/31/18 08:04 LDL Cholesterol Direct 155 mg/dL (75-193) 12/31/18 08:04 HDL Cholesterol 62 mg/dL (23-92) 12/31/18 08:04 - Physical Exam Vitals and I&O: Vital Signs Temp 97.8 F 08/28/19 15:15 Pulse 72 08/28/19 15:15 Resp 20 08/28/19 15:15 BP 102/58 08/28/19 15:15 Pulse Ox 97 08/28/19 15:15 Intake & Output 08/27/19 08/28/19 08/28/19 18:59 06:59 18:59 Intake Total 950 240 Balance 950 240 Intake: Oral 950 240 Other: # Voids 4 1 # Bowel Movements 1 Stool Characteristics Soft Soft Formed Formed Brown Brown Active Medications: Current Medications Acetaminophen (Tylenol) 650 mg PO Q4H PRN PRN Reason: Pain (Mild 1-3) Stop: 10/07/19 17:51 Acetaminophen (Tylenol) 650 mg PO Q4H PRN PRN Reason: Temperature above 101 Stop: 10/07/19 17:53 Alendronate Sodium (Fosamax) 70 mg PO We@0630 [facility] Stop: 09/02/19 06:29 Last Admin: 08/22/19 06:32 Dose: 70 mg Calcium/Vitamin D (Oscal W/Vitamin D) 1 tab PO DAILY [facility] Stop: 09/08/19 08:59 Last Admin: 08/28/19 09:35 Dose: 1 tab Donepezil HCl (Aricept) 10 mg PO HS [facility] Last Admin: 08/27/19 20:42 Dose: 10 mg General: demented, thin HEENT: NC/AT, PERRLA, EOMI Neck: Supple, No JVD, No thyromegaly Lungs: CTAB Cardiovascular: RRR, Normal S1, Normal S2, with murmur Abdomen: soft, thin, non-distended, positive bowel sound Extremities: excoriation Neurological: no change Internal Medicine Assmt/Plan - Assessment Assessment: alzheimers dementa elevated chol djd osteoporosis ho old left hip fx - Plan Plan: fall precaution nutritional support cont on calcium supplemetn - resume fosamax will cont to follow dw rn add mvi Nutritional Asmnt/Malnutr-PDOC - Dietary Evaluation Malnutrition Findings (Please click <Entered> for more info): Nutritional Asmnt/Malnutrition Start: 01/04/19 09: 50 Text: Status: Complete Freq: Protocol: Document 01/04/19 14:59 ANUELG (Rec: 01/04/19 15:06 TARIK [id number]) Nutritional Asmnt/Malnutrition Patient General Information Nutritional Screening Moderate Risk Diagnosis psychosis Pertinent Medical Hx/Surgical Hx dementia, DJD, osteoporosis Subjective Information pt seen lying in bed, awake and alert, stated food has beed great. Pt is not a big eater. Encourage to eat balanced meals and pt agreed with it. Per EMR, PO intake 75 -100% Current Diet Order/ Nutrition Support regular Pertinent Medications reviewed Pertinent Labs 12/31 reviewed Nutritional Hx/Data Height 1.65 m Height (Calculated Centimeters) 165.1 Current Weight (lbs) 74.843 kg Weight (Calculated Kilograms) 74.8 Weight (Calculated Grams) 31409.7 [place] Body Weight 125 Body Mass Index (BMI) 27.4 Weight Status Overweight GI Symptoms GI Symptoms None Last BM 01/04 x 2 Difficult in: None Skin Integrity/Comment: intact Current %PO Good (75-100%) Estimated Nutritional Goals BEE in Kcals: Using Current wt Calories/Kcals/Kg 23-27 Kcals Calculated 9908-2546 Protein: Using Current wt Protein g/k.8 Protein Calculated 60 Fluid: ml 1725-1998ml (1ml/kcal) Nutritional Problem No current Nutrition Prob Problem N/A Malnutrition Alert Is there a minimum of two criteria No selected? Query Text:Check all the applicable criteria. A minimum of two criteria are recommended for diagnosis of either severe or non-severe malnutrition. Malnutrition Related to Morbid Obesity Malnutrition related to morbid obesity No Intervention/Recommendation Comments 1. Continue with regular diet as ordered. 2. Monitor PO intake, wt, labs and skin integrity 3. F/U as low risk in 7 days Expected Outcomes/Goals Expected Outcomes/Goals 1. PO intake to meet at least 75% of nutritional needs. 2. Wt stability, skin to remain intact, labs to approach WNL.
--- NOTE | 2019-08-28 21:38 | Progress Notes ---
DATE: 08/28/2019 SUBJECTIVE: The patient in the hospital, still confused, disoriented, unable to care for her basic needs. [employer] Scientist is working with legal processes to get access to her money. Otherwise, sleeping well, eating well, redirectable. JOB# [id number]
--- NOTE | 2019-08-29 07:05 | Progress Notes ---
DATE: 08/29/2019 SUBJECTIVE: The patient in the hospital, pending placement, gravely disabled, cannot take care of herself. Medications reviewed. Vitals were reviewed. The patient is resting comfortably, eating well, and sleeping well. clerical and administrative workers is involved with placement. JOB# [id number]
[2019-08-29] MEDS: Multivitamin w/ Minerals Tab PO SCH (09:12)
[2019-08-29] MEDS: Calcium Carb/Vit D 500 mg/200 U Tab PO SCH (09:12)
--- NOTE | 2019-08-29 15:34 | Internal Medicine Prog Note ---
Internal Medicine Subjective - Subjective Patient seen and examined:: with staff, chart reviewed Patient is:: awake, verbal, interactive, ambulating, confused Per staff patient has:: no adverse event, no episodes of fall, eating well, tolerating meds Internal Medicine Objective - Results Recent Labs: Laboratory Last Values POC Glucose 112 MG/DL (70 - 105) H 08/11/19 21:00 Triglycerides 162 mg/dL (<150) H 12/31/18 08:04 Cholesterol 234 mg/dL (<200) H 12/31/18 08:04 LDL Cholesterol Direct 155 mg/dL (75-193) 12/31/18 08:04 HDL Cholesterol 62 mg/dL (23-92) 12/31/18 08:04 - Physical Exam Vitals and I&O: Vital Signs Temp 98.1 F 08/29/19 05:04 Pulse 62 08/29/19 05:04 Resp 18 08/29/19 05:04 BP 108/69 08/29/19 05:04 Pulse Ox 98 08/29/19 05:04 Intake & Output 08/28/19 08/29/19 08/29/19 18:59 06:59 18:59 Intake Total 1000 120 Balance 1000 120 Intake: Oral 1000 120 Other: # Voids 4 3 # Bowel Movements 1 0 Stool Characteristics Soft Soft Soft Formed Formed Formed Brown Brown Brown Active Medications: Current Medications Acetaminophen (Tylenol) 650 mg PO Q4H PRN PRN Reason: Pain (Mild 1-3) Stop: 10/07/19 17:51 Acetaminophen (Tylenol) 650 mg PO Q4H PRN PRN Reason: Temperature above 101 Stop: 10/07/19 17:53 Alendronate Sodium (Fosamax) 70 mg PO We@0630 [facility] Stop: 09/02/19 06:29 Last Admin: 08/29/19 06:27 Dose: 70 mg Calcium/Vitamin D (Oscal W/Vitamin D) 1 tab PO DAILY [facility] Stop: 09/08/19 08:59 Last Admin: 08/29/19 09:12 Dose: 1 tab Donepezil HCl (Aricept) 10 mg PO HS [facility] Last Admin: 08/28/19 20:36 Dose: 10 mg General: demented, thin HEENT: NC/AT, PERRLA, EOMI Neck: Supple, No JVD, No thyromegaly Lungs: CTAB Cardiovascular: RRR, Normal S1, Normal S2, with murmur Abdomen: soft, thin, non-distended, positive bowel sound Extremities: excoriation Neurological: no change Internal Medicine Assmt/Plan - Assessment Assessment: alzheimers dementa elevated chol djd osteoporosis ho old left hip fx - Plan Plan: fall precaution nutritional support cont on calcium supplemetn - resume fosamax will cont to follow dw rn add mvi Nutritional Asmnt/Malnutr-PDOC - Dietary Evaluation Malnutrition Findings (Please click <Entered> for more info): Nutritional Asmnt/Malnutrition Start: 01/04/19 09: 50 Text: Status: Complete Freq: Protocol: Document 01/04/19 14:59 ANUELG (Rec: 01/04/19 15:06 TARIK [email or web address]) Nutritional Asmnt/Malnutrition Patient General Information Nutritional Screening Moderate Risk Diagnosis psychosis Pertinent Medical Hx/Surgical Hx dementia, DJD, osteoporosis Subjective Information pt seen lying in bed, awake and alert, stated food has beed great. Pt is not a big eater. Encourage to eat balanced meals and pt agreed with it. Per EMR, PO intake 75 -100% Current Diet Order/ Nutrition Support regular Pertinent Medications reviewed Pertinent Labs 12/31 reviewed Nutritional Hx/Data Height 1.65 m Height (Calculated Centimeters) 165.1 Current Weight (lbs) 74.843 kg Weight (Calculated Kilograms) 74.8 Weight (Calculated Grams) 74683.7 [place] Body Weight 125 Body Mass Index (BMI) 27.4 Weight Status Overweight GI Symptoms GI Symptoms None Last BM 01/04 x 2 Difficult in: None Skin Integrity/Comment: intact Current %PO Good (75-100%) Estimated Nutritional Goals BEE in Kcals: Using Current wt Calories/Kcals/Kg 23-27 Kcals Calculated 0262-9750 Protein: Using Current wt Protein g/k.8 Protein Calculated 60 Fluid: ml 1725-1998ml (1ml/kcal) Nutritional Problem No current Nutrition Prob Problem N/A Malnutrition Alert Is there a minimum of two criteria No selected? Query Text:Check all the applicable criteria. A minimum of two criteria are recommended for diagnosis of either severe or non-severe malnutrition. Malnutrition Related to Morbid Obesity Malnutrition related to morbid obesity No Intervention/Recommendation Comments 1. Continue with regular diet as ordered. 2. Monitor PO intake, wt, labs and skin integrity 3. F/U as low risk in 7 days Expected Outcomes/Goals Expected Outcomes/Goals 1. PO intake to meet at least 75% of nutritional needs. 2. Wt stability, skin to remain intact, labs to approach WNL.
[2019-08-30] MEDS: Calcium Carb/Vit D 500 mg/200 U Tab PO SCH (08:16)
[2019-08-30] MEDS: Multivitamin w/ Minerals Tab PO SCH (08:16)
--- NOTE | 2019-08-30 13:04 | Internal Medicine Prog Note ---
Internal Medicine Subjective - Subjective Patient seen and examined:: with staff, chart reviewed Patient is:: awake, verbal, interactive, ambulating, confused Per staff patient has:: no adverse event, no episodes of fall, eating well, tolerating meds Internal Medicine Objective - Results Recent Labs: Laboratory Last Values POC Glucose 112 MG/DL (70 - 105) H 08/11/19 21:00 Triglycerides 162 mg/dL (<150) H 12/31/18 08:04 Cholesterol 234 mg/dL (<200) H 12/31/18 08:04 LDL Cholesterol Direct 155 mg/dL (75-193) 12/31/18 08:04 HDL Cholesterol 62 mg/dL (23-92) 12/31/18 08:04 - Physical Exam Vitals and I&O: Vital Signs Temp 97.5 F 08/30/19 05:53 Pulse 78 08/30/19 05:53 Resp 20 08/30/19 05:53 BP 106/71 08/30/19 05:53 Pulse Ox 96 08/30/19 05:53 Intake & Output 08/29/19 08/30/19 08/30/19 18:59 06:59 18:59 Intake Total 1320 60 Balance 1320 60 Intake: Oral 960 60 Other 360 Other: # Voids 4 1 # Bowel Movements 1 0 Stool Characteristics Soft Soft Soft Formed Formed Formed Brown Brown Active Medications: Current Medications Acetaminophen (Tylenol) 650 mg PO Q4H PRN PRN Reason: Pain (Mild 1-3) Stop: 10/07/19 17:51 Acetaminophen (Tylenol) 650 mg PO Q4H PRN PRN Reason: Temperature above 101 Stop: 10/07/19 17:53 Alendronate Sodium (Fosamax) 70 mg PO We@0630 [facility] Stop: 09/02/19 06:29 Last Admin: 08/29/19 06:27 Dose: 70 mg Calcium/Vitamin D (Oscal W/Vitamin D) 1 tab PO DAILY [facility] Stop: 09/08/19 08:59 Last Admin: 08/30/19 08:16 Dose: 1 tab Donepezil HCl (Aricept) 10 mg PO HS [facility] Last Admin: 08/29/19 20:07 Dose: 10 mg General: demented, thin HEENT: NC/AT, PERRLA, EOMI Neck: Supple, No JVD, No thyromegaly Lungs: CTAB Cardiovascular: RRR, Normal S1, Normal S2, with murmur Abdomen: soft, thin, non-distended, positive bowel sound Extremities: excoriation Neurological: no change Internal Medicine Assmt/Plan - Assessment Assessment: alzheimers dementa elevated chol djd osteoporosis ho old left hip fx - Plan Plan: fall precaution nutritional support cont on calcium supplemetn - resume fosamax will cont to follow dw rn add mvi Nutritional Asmnt/Malnutr-PDOC - Dietary Evaluation Malnutrition Findings (Please click <Entered> for more info): Nutritional Asmnt/Malnutrition Start: 01/04/19 09: 50 Text: Status: Complete Freq: Protocol: Document 01/04/19 14:59 [email or web address] (Rec: 01/04/19 15:06 LCCOREY [email or web address]) Nutritional Asmnt/Malnutrition Patient General Information Nutritional Screening Moderate Risk Diagnosis psychosis Pertinent Medical Hx/Surgical Hx dementia, DJD, osteoporosis Subjective Information pt seen lying in bed, awake and alert, stated food has beed great. Pt is not a big eater. Encourage to eat balanced meals and pt agreed with it. Per EMR, PO intake 75 -100% Current Diet Order/ Nutrition Support regular Pertinent Medications reviewed Pertinent Labs 12/31 reviewed Nutritional Hx/Data Height 1.65 m Height (Calculated Centimeters) 165.1 Current Weight (lbs) 74.843 kg Weight (Calculated Kilograms) 74.8 Weight (Calculated Grams) 48099.7 [place] Body Weight 125 Body Mass Index (BMI) 27.4 Weight Status Overweight GI Symptoms GI Symptoms None Last BM 01/04 x 2 Difficult in: None Skin Integrity/Comment: intact Current %PO Good (75-100%) Estimated Nutritional Goals BEE in Kcals: Using Current wt Calories/Kcals/Kg 23-27 Kcals Calculated 1714-4683 Protein: Using Current wt Protein g/k.8 Protein Calculated 60 Fluid: ml 1725-1998ml (1ml/kcal) Nutritional Problem No current Nutrition Prob Problem N/A Malnutrition Alert Is there a minimum of two criteria No selected? Query Text:Check all the applicable criteria. A minimum of two criteria are recommended for diagnosis of either severe or non-severe malnutrition. Malnutrition Related to Morbid Obesity Malnutrition related to morbid obesity No Intervention/Recommendation Comments 1. Continue with regular diet as ordered. 2. Monitor PO intake, wt, labs and skin integrity 3. F/U as low risk in 7 days Expected Outcomes/Goals Expected Outcomes/Goals 1. PO intake to meet at least 75% of nutritional needs. 2. Wt stability, skin to remain intact, labs to approach WNL.
--- NOTE | 2019-08-30 20:59 | Progress Notes ---
DATE: 08/30/2019 SUBJECTIVE: The patient is currently in the hospital, pending placement. Concerns for grave disability. Cannot take care of herself. Otherwise, calm, generally cooperative. Medications were reviewed. JOB# [id number]
[2019-08-31] MEDS: Calcium Carb/Vit D 500 mg/200 U Tab PO SCH (09:59)
--- NOTE | 2019-08-31 14:52 | Internal Medicine Prog Note ---
Internal Medicine Subjective - Subjective Patient seen and examined:: with staff, chart reviewed Patient is:: awake, verbal, interactive, ambulating, confused Per staff patient has:: no adverse event, no episodes of fall, eating well, tolerating meds Internal Medicine Objective - Results Recent Labs: Laboratory Last Values POC Glucose 112 MG/DL (70 - 105) H 08/11/19 21:00 Triglycerides 162 mg/dL (<150) H 12/31/18 08:04 Cholesterol 234 mg/dL (<200) H 12/31/18 08:04 LDL Cholesterol Direct 155 mg/dL (75-193) 12/31/18 08:04 HDL Cholesterol 62 mg/dL (23-92) 12/31/18 08:04 - Physical Exam Vitals and I&O: Vital Signs Temp 97.6 F 08/31/19 14:00 Pulse 63 08/31/19 14:00 Resp 18 08/31/19 14:00 BP 134/70 08/31/19 14:00 Pulse Ox 99 08/31/19 14:00 Intake & Output 08/30/19 08/31/19 08/31/19 18:59 06:59 18:59 Intake Total 1000 120 Balance 1000 120 Intake: Oral 1000 120 Other: # Voids 4 3 # Bowel Movements 1 Stool Characteristics Soft Soft Formed Formed Brown Active Medications: Current Medications Acetaminophen (Tylenol) 650 mg PO Q4H PRN PRN Reason: Pain (Mild 1-3) Stop: 10/07/19 17:51 Acetaminophen (Tylenol) 650 mg PO Q4H PRN PRN Reason: Temperature above 101 Stop: 10/07/19 17:53 Alendronate Sodium (Fosamax) 70 mg PO We@0630 [facility] Stop: 09/02/19 06:29 Last Admin: 08/29/19 06:27 Dose: 70 mg Calcium/Vitamin D (Oscal W/Vitamin D) 1 tab PO DAILY [facility] Stop: 09/08/19 08:59 Last Admin: 08/31/19 09:59 Dose: Not Given Donepezil HCl (Aricept) 10 mg PO [facility] Last Admin: 08/30/19 20:05 Dose: 10 mg General: demented, thin HEENT: NC/AT, PERRLA, EOMI Neck: Supple, No JVD, No thyromegaly Lungs: CTAB Cardiovascular: RRR, Normal S1, Normal S2, with murmur Abdomen: soft, thin, non-distended, positive bowel sound Extremities: excoriation Neurological: no change Internal Medicine Assmt/Plan - Assessment Assessment: alzheimers dementa elevated chol djd osteoporosis ho old left hip fx - Plan Plan: fall precaution nutritional support cont on calcium supplemetn - resume fosamax will cont to follow dw rn add mvi Nutritional Asmnt/Malnutr-PDOC - Dietary Evaluation Malnutrition Findings (Please click <Entered> for more info): Nutritional Asmnt/Malnutrition Start: 01/04/19 09: 50 Text: Status: Complete Freq: Protocol: Document 01/04/19 14:59 ANUELG (Rec: 01/04/19 15:06 TARIK [email or web address]) Nutritional Asmnt/Malnutrition Patient General Information Nutritional Screening Moderate Risk Diagnosis psychosis Pertinent Medical Hx/Surgical Hx dementia, DJD, osteoporosis Subjective Information pt seen lying in bed, awake and alert, stated food has beed great. Pt is not a big eater. Encourage to eat balanced meals and pt agreed with it. Per EMR, PO intake 75 -100% Current Diet Order/ Nutrition Support regular Pertinent Medications reviewed Pertinent Labs 12/31 reviewed Nutritional Hx/Data Height 1.65 m Height (Calculated Centimeters) 165.1 Current Weight (lbs) 74.843 kg Weight (Calculated Kilograms) 74.8 Weight (Calculated Grams) 19586.7 [place] Body Weight 125 Body Mass Index (BMI) 27.4 Weight Status Overweight GI Symptoms GI Symptoms None Last BM 01/04 x 2 Difficult in: None Skin Integrity/Comment: intact Current %PO Good (75-100%) Estimated Nutritional Goals BEE in Kcals: Using Current wt Calories/Kcals/Kg 23-27 Kcals Calculated 2935-1602 Protein: Using Current wt Protein g/k.8 Protein Calculated 60 Fluid: ml 1725-1998ml (1ml/kcal) Nutritional Problem No current Nutrition Prob Problem N/A Malnutrition Alert Is there a minimum of two criteria No selected? Query Text:Check all the applicable criteria. A minimum of two criteria are recommended for diagnosis of either severe or non-severe malnutrition. Malnutrition Related to Morbid Obesity Malnutrition related to morbid obesity No Intervention/Recommendation Comments 1. Continue with regular diet as ordered. 2. Monitor PO intake, wt, labs and skin integrity 3. F/U as low risk in 7 days Expected Outcomes/Goals Expected Outcomes/Goals 1. PO intake to meet at least 75% of nutritional needs. 2. Wt stability, skin to remain intact, labs to approach WNL.
--- NOTE | 2019-08-31 21:16 | Progress Notes ---
DATE: 08/31/2019 SUBJECTIVE: A 74-year-old female, calm, generally cooperative. We are pending a safe disposition, unable to place at this time. She is demented, confused, cannot take care of her basic needs, sleeping well, and redirectable. No agitation, comfortable on exam. JOB# [id number]
--- NOTE | 2019-09-01 07:08 | Progress Notes ---
DATE: 09/01/2019 SUBJECTIVE: A 74-year-old female, calm, pending a safe disposition, awake, engaged, sleeping well, eating well. No SI. No HI. We will await a safe disposition plan. The patient is very confused, disoriented. JOB# [id number]
[2019-09-01] MEDS: Calcium Carb/Vit D 500 mg/200 U Tab PO SCH (09:00)
--- NOTE | 2019-09-01 09:47 | Internal Medicine Prog Note ---
Internal Medicine Subjective - Subjective Patient seen and examined:: with staff, chart reviewed Patient is:: awake, verbal, interactive, ambulating, confused Per staff patient has:: no adverse event, no episodes of fall, eating well, tolerating meds Internal Medicine Objective - Results Recent Labs: Laboratory Last Values POC Glucose 112 MG/DL (70 - 105) H 08/11/19 21:00 Triglycerides 162 mg/dL (<150) H 12/31/18 08:04 Cholesterol 234 mg/dL (<200) H 12/31/18 08:04 LDL Cholesterol Direct 155 mg/dL (75-193) 12/31/18 08:04 HDL Cholesterol 62 mg/dL (23-92) 12/31/18 08:04 - Physical Exam Vitals and I&O: Vital Signs Temp 97.8 F 09/01/19 06:05 Pulse 69 09/01/19 06:05 Resp 20 09/01/19 06:05 BP 120/76 09/01/19 06:05 Pulse Ox 97 09/01/19 06:05 Intake & Output 08/31/19 09/01/19 09/01/19 18:59 06:59 18:59 Intake Total 1200 60 Balance 1200 60 Intake: Oral 1200 60 Other: # Voids 0 # Bowel Movements 1 0 Active Medications: Current Medications Acetaminophen (Tylenol) 650 mg PO Q4H PRN PRN Reason: Pain (Mild 1-3) Stop: 10/07/19 17:51 Acetaminophen (Tylenol) 650 mg PO Q4H PRN PRN Reason: Temperature above 101 Stop: 10/07/19 17:53 Alendronate Sodium (Fosamax) 70 mg PO We@0630 [facility] Stop: 09/02/19 06:29 Last Admin: 08/29/19 06:27 Dose: 70 mg Calcium/Vitamin D (Oscal W/Vitamin D) 1 tab PO DAILY [facility] Stop: 09/08/19 08:59 Last Admin: 09/01/19 09:00 Dose: 1 tab Donepezil HCl (Aricept) 10 mg PO HS [facility] Last Admin: 08/31/19 20:29 Dose: 10 mg General: demented, thin HEENT: NC/AT, PERRLA, EOMI Neck: Supple, No JVD, No thyromegaly Lungs: CTAB Cardiovascular: RRR, Normal S1, Normal S2, with murmur Abdomen: soft, thin, non-distended, positive bowel sound Extremities: excoriation Neurological: no change Internal Medicine Assmt/Plan - Assessment Assessment: alzheimers dementa elevated chol djd osteoporosis ho old left hip fx - Plan Plan: fall precaution nutritional support cont on calcium supplemetn - resume fosamax will cont to follow dw rn add mvi Nutritional Asmnt/Malnutr-PDOC - Dietary Evaluation Malnutrition Findings (Please click <Entered> for more info): Nutritional Asmnt/Malnutrition Start: 01/04/19 09: 50 Text: Status: Complete Freq: Protocol: Document 01/04/19 14:59 LCHENG (Rec: 01/04/19 15:06 LCHENG [email or web address]) Nutritional Asmnt/Malnutrition Patient General Information Nutritional Screening Moderate Risk Diagnosis psychosis Pertinent Medical Hx/Surgical Hx dementia, DJD, osteoporosis Subjective Information pt seen lying in bed, awake and alert, stated food has beed great. Pt is not a big eater. Encourage to eat balanced meals and pt agreed with it. Per EMR, PO intake 75 -100% Current Diet Order/ Nutrition Support regular Pertinent Medications reviewed Pertinent Labs 12/31 reviewed Nutritional Hx/Data Height 1.65 m Height (Calculated Centimeters) 165.1 Current Weight (lbs) 74.843 kg Weight (Calculated Kilograms) 74.8 Weight (Calculated Grams) 78953.7 [place] Body Weight 125 Body Mass Index (BMI) 27.4 Weight Status Overweight GI Symptoms GI Symptoms None Last BM 01/04 x 2 Difficult in: None Skin Integrity/Comment: intact Current %PO Good (75-100%) Estimated Nutritional Goals BEE in Kcals: Using Current wt Calories/Kcals/Kg 23-27 Kcals Calculated 2129-9113 Protein: Using Current wt Protein g/k.8 Protein Calculated 60 Fluid: ml 1725-1998ml (1ml/kcal) Nutritional Problem No current Nutrition Prob Problem N/A Malnutrition Alert Is there a minimum of two criteria No selected? Query Text:Check all the applicable criteria. A minimum of two criteria are recommended for diagnosis of either severe or non-severe malnutrition. Malnutrition Related to Morbid Obesity Malnutrition related to morbid obesity No Intervention/Recommendation Comments 1. Continue with regular diet as ordered. 2. Monitor PO intake, wt, labs and skin integrity 3. F/U as low risk in 7 days Expected Outcomes/Goals Expected Outcomes/Goals 1. PO intake to meet at least 75% of nutritional needs. 2. Wt stability, skin to remain intact, labs to approach WNL.
[2019-09-02] MEDS: Calcium Carb/Vit D 500 mg/200 U Tab PO SCH (08:41)
--- NOTE | 2019-09-02 09:53 | Internal Medicine Prog Note ---
Internal Medicine Subjective - Subjective Patient seen and examined:: with staff, chart reviewed Patient is:: awake, verbal, interactive, ambulating, confused Per staff patient has:: no adverse event, no episodes of fall, eating well, tolerating meds Internal Medicine Objective - Results Recent Labs: Laboratory Last Values POC Glucose 112 MG/DL (70 - 105) H 08/11/19 21:00 Triglycerides 162 mg/dL (<150) H 12/31/18 08:04 Cholesterol 234 mg/dL (<200) H 12/31/18 08:04 LDL Cholesterol Direct 155 mg/dL (75-193) 12/31/18 08:04 HDL Cholesterol 62 mg/dL (23-92) 12/31/18 08:04 - Physical Exam Vitals and I&O: Vital Signs Temp 97.9 F 09/02/19 05:55 Pulse 79 09/02/19 05:55 Resp 20 09/02/19 05:55 BP 128/75 09/02/19 05:55 Pulse Ox 95 09/02/19 05:55 Intake & Output 09/01/19 09/02/19 09/02/19 18:59 06:59 18:59 Intake Total 1200 240 Balance 1200 240 Intake: Oral 1200 240 Other: # Voids 1 # Bowel Movements 1 Active Medications: Current Medications Acetaminophen (Tylenol) 650 mg PO Q4H PRN PRN Reason: Pain (Mild 1-3) Stop: 10/07/19 17:51 Acetaminophen (Tylenol) 650 mg PO Q4H PRN PRN Reason: Temperature above 101 Stop: 10/07/19 17:53 Calcium/Vitamin D (Oscal W/Vitamin D) 1 tab PO DAILY [facility] Stop: 09/08/19 08:59 Last Admin: 09/02/19 08:41 Dose: Not Given Donepezil HCl (Aricept) 10 mg PO [facility] Last Admin: 09/01/19 20:49 Dose: 10 mg General: demented, thin HEENT: NC/AT, PERRLA, EOMI Neck: Supple, No JVD, No thyromegaly Lungs: CTAB Cardiovascular: RRR, Normal S1, Normal S2, with murmur Abdomen: soft, thin, non-distended, positive bowel sound Extremities: excoriation Neurological: no change Internal Medicine Assmt/Plan - Assessment Assessment: alzheimers dementa elevated chol djd osteoporosis ho old left hip fx - Plan Plan: fall precaution nutritional support cont on calcium supplemetn - resume fosamax will cont to follow dw rn add mvi Nutritional Asmnt/Malnutr-PDOC - Dietary Evaluation Malnutrition Findings (Please click <Entered> for more info): Nutritional Asmnt/Malnutrition Start: 01/04/19 09: 50 Text: Status: Complete Freq: Protocol: Document 01/04/19 14:59 LCHENG (Rec: 01/04/19 15:06 LCHENG [email or web address]) Nutritional Asmnt/Malnutrition Patient General Information Nutritional Screening Moderate Risk Diagnosis psychosis Pertinent Medical Hx/Surgical Hx dementia, DJD, osteoporosis Subjective Information pt seen lying in bed, awake and alert, stated food has beed great. Pt is not a big eater. Encourage to eat balanced meals and pt agreed with it. Per EMR, PO intake 75 -100% Current Diet Order/ Nutrition Support regular Pertinent Medications reviewed Pertinent Labs 12/31 reviewed Nutritional Hx/Data Height 1.65 m Height (Calculated Centimeters) 165.1 Current Weight (lbs) 74.843 kg Weight (Calculated Kilograms) 74.8 Weight (Calculated Grams) 58616.7 [place] Body Weight 125 Body Mass Index (BMI) 27.4 Weight Status Overweight GI Symptoms GI Symptoms None Last BM 01/04 x 2 Difficult in: None Skin Integrity/Comment: intact Current %PO Good (75-100%) Estimated Nutritional Goals BEE in Kcals: Using Current wt Calories/Kcals/Kg 23-27 Kcals Calculated 7878-8188 Protein: Using Current wt Protein g/k.8 Protein Calculated 60 Fluid: ml 1725-1998ml (1ml/kcal) Nutritional Problem No current Nutrition Prob Problem N/A Malnutrition Alert Is there a minimum of two criteria No selected? Query Text:Check all the applicable criteria. A minimum of two criteria are recommended for diagnosis of either severe or non-severe malnutrition. Malnutrition Related to Morbid Obesity Malnutrition related to morbid obesity No Intervention/Recommendation Comments 1. Continue with regular diet as ordered. 2. Monitor PO intake, wt, labs and skin integrity 3. F/U as low risk in 7 days Expected Outcomes/Goals Expected Outcomes/Goals 1. PO intake to meet at least 75% of nutritional needs. 2. Wt stability, skin to remain intact, labs to approach WNL.
--- NOTE | 2019-09-02 22:09 | Progress Notes ---
DATE: SUBJECTIVE: The patient seen, chart reviewed, and discussed with staff. The patient currently awaiting placement. Reports good sleep and appetite. Denies suicidal or homicidal ideations. The patient remains disoriented and confused. PLAN: The patient currently awaiting placement. We will follow up with case advocate regarding the patient's placement upon discharge. JOB# [id number]
[2019-09-03] MEDS: Calcium Carb/Vit D 500 mg/200 U Tab PO SCH (08:30)
--- NOTE | 2019-09-03 13:11 | Internal Medicine Prog Note ---
Internal Medicine Subjective - Subjective Patient seen and examined:: with staff, chart reviewed Patient is:: awake, verbal, interactive, ambulating, confused Per staff patient has:: no adverse event, no episodes of fall, eating well, tolerating meds Internal Medicine Objective - Results Recent Labs: Laboratory Last Values POC Glucose 112 MG/DL (70 - 105) H 08/11/19 21:00 Triglycerides 162 mg/dL (<150) H 12/31/18 08:04 Cholesterol 234 mg/dL (<200) H 12/31/18 08:04 LDL Cholesterol Direct 155 mg/dL (75-193) 12/31/18 08:04 HDL Cholesterol 62 mg/dL (23-92) 12/31/18 08:04 - Physical Exam Vitals and I&O: Vital Signs Temp 97.3 F 09/03/19 06:13 Pulse 62 09/03/19 06:13 Resp 18 09/03/19 06:13 BP 108/74 09/03/19 06:13 Pulse Ox 95 09/03/19 06:13 Intake & Output 09/02/19 09/03/19 09/03/19 18:59 06:59 18:59 Intake Total 950 240 Balance 950 240 Intake: Oral 950 240 Other: # Voids 4 2 # Bowel Movements 1 Active Medications: Current Medications Acetaminophen (Tylenol) 650 mg PO Q4H PRN PRN Reason: Pain (Mild 1-3) Stop: 10/07/19 17:51 Acetaminophen (Tylenol) 650 mg PO Q4H PRN PRN Reason: Temperature above 101 Stop: 10/07/19 17:53 Alendronate Sodium (Fosamax) 70 mg PO We@0630 [facility] Stop: 11/04/19 06:29 Calcium/Vitamin D (Oscal W/Vitamin D) 1 tab PO DAILY [facility] Stop: 09/08/19 08:59 Last Admin: 09/03/19 08:30 Dose: 1 tab Donepezil HCl (Aricept) 10 mg PO [facility] Last Admin: 09/02/19 20:20 Dose: 10 mg General: demented, thin HEENT: NC/AT, PERRLA, EOMI Neck: Supple, No JVD, No thyromegaly Lungs: CTAB Cardiovascular: RRR, Normal S1, Normal S2, with murmur Abdomen: soft, thin, non-distended, positive bowel sound Extremities: excoriation Neurological: no change Internal Medicine Assmt/Plan - Assessment Assessment: alzheimers dementa elevated chol djd osteoporosis ho old left hip fx - Plan Plan: fall precaution nutritional support cont on calcium supplemetn - resume fosamax will cont to follow dw rn add mvi Nutritional Asmnt/Malnutr-PDOC - Dietary Evaluation Malnutrition Findings (Please click <Entered> for more info): Nutritional Asmnt/Malnutrition Start: 01/04/19 09: 50 Text: Status: Complete Freq: Protocol: Document 01/04/19 14:59 LCHENG (Rec: 01/04/19 15:06 LCHENG [email or web address]) Nutritional Asmnt/Malnutrition Patient General Information Nutritional Screening Moderate Risk Diagnosis psychosis Pertinent Medical Hx/Surgical Hx dementia, DJD, osteoporosis Subjective Information pt seen lying in bed, awake and alert, stated food has beed great. Pt is not a big eater. Encourage to eat balanced meals and pt agreed with it. Per EMR, PO intake 75 -100% Current Diet Order/ Nutrition Support regular Pertinent Medications reviewed Pertinent Labs 12/31 reviewed Nutritional Hx/Data Height 1.65 m Height (Calculated Centimeters) 165.1 Current Weight (lbs) 74.843 kg Weight (Calculated Kilograms) 74.8 Weight (Calculated Grams) 17034.7 [place] Body Weight 125 Body Mass Index (BMI) 27.4 Weight Status Overweight GI Symptoms GI Symptoms None Last BM 01/04 x 2 Difficult in: None Skin Integrity/Comment: intact Current %PO Good (75-100%) Estimated Nutritional Goals BEE in Kcals: Using Current wt Calories/Kcals/Kg 23-27 Kcals Calculated 6306-4833 Protein: Using Current wt Protein g/k.8 Protein Calculated 60 Fluid: ml 1725-1998ml (1ml/kcal) Nutritional Problem No current Nutrition Prob Problem N/A Malnutrition Alert Is there a minimum of two criteria No selected? Query Text:Check all the applicable criteria. A minimum of two criteria are recommended for diagnosis of either severe or non-severe malnutrition. Malnutrition Related to Morbid Obesity Malnutrition related to morbid obesity No Intervention/Recommendation Comments 1. Continue with regular diet as ordered. 2. Monitor PO intake, wt, labs and skin integrity 3. F/U as low risk in 7 days Expected Outcomes/Goals Expected Outcomes/Goals 1. PO intake to meet at least 75% of nutritional needs. 2. Wt stability, skin to remain intact, labs to approach WNL.
--- NOTE | 2019-09-03 22:31 | Progress Notes ---
DATE: 09/03/2019 SUBJECTIVE: Case was discussed with staff of the patient, reviewed records. The patient is awaiting placement. The patient is sleeping well, eating well, demented, confused, unable to make safe plan for self-care, unpredictable, impulsive, needing redirection. No side effects with the medication. No sedation, no nausea. We will continue the patient in group therapy, milieu therapy, and adjust medication as needed. [facility]# [id number]
[2019-09-04] MEDS: Calcium Carb/Vit D 500 mg/200 U Tab PO SCH (12:49)
--- NOTE | 2019-09-04 13:13 | Internal Medicine Prog Note ---
Internal Medicine Subjective - Subjective Patient seen and examined:: with staff, chart reviewed Patient is:: awake, verbal, interactive, ambulating, confused Per staff patient has:: no adverse event, no episodes of fall, eating well, tolerating meds Internal Medicine Objective - Results Recent Labs: Laboratory Last Values POC Glucose 112 MG/DL (70 - 105) H 08/11/19 21:00 Triglycerides 162 mg/dL (<150) H 12/31/18 08:04 Cholesterol 234 mg/dL (<200) H 12/31/18 08:04 LDL Cholesterol Direct 155 mg/dL (75-193) 12/31/18 08:04 HDL Cholesterol 62 mg/dL (23-92) 12/31/18 08:04 - Physical Exam Vitals and I&O: Vital Signs Temp 97.3 F 09/04/19 05:55 Pulse 85 09/04/19 05:55 Resp 20 09/04/19 05:55 BP 92/58 09/04/19 05:55 Pulse Ox 94 09/04/19 05:55 Intake & Output 09/03/19 09/04/19 09/04/19 18:59 06:59 18:59 Intake Total 1000 240 Balance 1000 240 Intake: Oral 1000 240 Other: # Voids 4 2 # Bowel Movements 1 Stool Characteristics Formed Active Medications: Current Medications Acetaminophen (Tylenol) 650 mg PO Q4H PRN PRN Reason: Pain (Mild 1-3) Stop: 10/07/19 17:51 Acetaminophen (Tylenol) 650 mg PO Q4H PRN PRN Reason: Temperature above 101 Stop: 10/07/19 17:53 Alendronate Sodium (Fosamax) 70 mg PO We@0630 [facility] Stop: 11/04/19 06:29 Calcium/Vitamin D (Oscal W/Vitamin D) 1 tab PO DAILY [facility] Stop: 09/08/19 08:59 Last Admin: 09/04/19 12:49 Dose: Not Given Donepezil HCl (Aricept) 10 mg PO [facility] Last Admin: 09/03/19 20:52 Dose: 10 mg General: demented, thin HEENT: NC/AT, PERRLA, EOMI Neck: Supple, No JVD, No thyromegaly Lungs: CTAB Cardiovascular: RRR, Normal S1, Normal S2, with murmur Abdomen: soft, thin, non-distended, positive bowel sound Extremities: excoriation Neurological: no change Internal Medicine Assmt/Plan - Assessment Assessment: alzheimers dementa elevated chol djd osteoporosis ho old left hip fx - Plan Plan: fall precaution nutritional support cont on calcium supplemetn - resume fosamax will cont to follow dw rn add mvi Nutritional Asmnt/Malnutr-PDOC - Dietary Evaluation Malnutrition Findings (Please click <Entered> for more info): Nutritional Asmnt/Malnutrition Start: 01/04/19 09: 50 Text: Status: Complete Freq: Protocol: Document 01/04/19 14:59 LCHENG (Rec: 01/04/19 15:06 LCHENG [email or web address]) Nutritional Asmnt/Malnutrition Patient General Information Nutritional Screening Moderate Risk Diagnosis psychosis Pertinent Medical Hx/Surgical Hx dementia, DJD, osteoporosis Subjective Information pt seen lying in bed, awake and alert, stated food has beed great. Pt is not a big eater. Encourage to eat balanced meals and pt agreed with it. Per EMR, PO intake 75 -100% Current Diet Order/ Nutrition Support regular Pertinent Medications reviewed Pertinent Labs 12/31 reviewed Nutritional Hx/Data Height 1.65 m Height (Calculated Centimeters) 165.1 Current Weight (lbs) 74.843 kg Weight (Calculated Kilograms) 74.8 Weight (Calculated Grams) 78590.7 [place] Body Weight 125 Body Mass Index (BMI) 27.4 Weight Status Overweight GI Symptoms GI Symptoms None Last BM 01/04 x 2 Difficult in: None Skin Integrity/Comment: intact Current %PO Good (75-100%) Estimated Nutritional Goals BEE in Kcals: Using Current wt Calories/Kcals/Kg 23-27 Kcals Calculated 6679-5488 Protein: Using Current wt Protein g/k.8 Protein Calculated 60 Fluid: ml 1725-1998ml (1ml/kcal) Nutritional Problem No current Nutrition Prob Problem N/A Malnutrition Alert Is there a minimum of two criteria No selected? Query Text:Check all the applicable criteria. A minimum of two criteria are recommended for diagnosis of either severe or non-severe malnutrition. Malnutrition Related to Morbid Obesity Malnutrition related to morbid obesity No Intervention/Recommendation Comments 1. Continue with regular diet as ordered. 2. Monitor PO intake, wt, labs and skin integrity 3. F/U as low risk in 7 days Expected Outcomes/Goals Expected Outcomes/Goals 1. PO intake to meet at least 75% of nutritional needs. 2. Wt stability, skin to remain intact, labs to approach WNL.
--- NOTE | 2019-09-04 23:43 | Progress Notes ---
DATE: Case was discussed with staff of the patient, reviewed records. The patient has been here for a long time, awaiting discharge. She is sleeping well, eating well. No suicidal ideation, no homicidal ideation, no paranoia, no side effects, demented, confused, and will continue the patient in group therapy, milieu therapy, adjust medication as needed. JOB# [id number]
[2019-09-05] MEDS: Calcium Carb/Vit D 500 mg/200 U Tab PO SCH (08:08)
[2019-09-05] MEDS: Multivitamin w/ Minerals Tab PO SCH (10:52)
--- NOTE | 2019-09-05 13:46 | Internal Medicine Prog Note ---
Internal Medicine Subjective - Subjective Patient seen and examined:: with staff, chart reviewed Patient is:: awake, verbal, interactive, ambulating, confused Per staff patient has:: no adverse event, no episodes of fall, eating well, tolerating meds Internal Medicine Objective - Results Recent Labs: Laboratory Last Values POC Glucose 112 MG/DL (70 - 105) H 08/11/19 21:00 Triglycerides 162 mg/dL (<150) H 12/31/18 08:04 Cholesterol 234 mg/dL (<200) H 12/31/18 08:04 LDL Cholesterol Direct 155 mg/dL (75-193) 12/31/18 08:04 HDL Cholesterol 62 mg/dL (23-92) 12/31/18 08:04 - Physical Exam Vitals and I&O: Vital Signs Temp 97.6 F 09/05/19 06:27 Pulse 76 09/05/19 06:27 Resp 18 09/05/19 06:27 BP 128/82 09/05/19 06:27 Pulse Ox 96 09/05/19 06:27 Intake & Output 09/04/19 09/05/19 09/05/19 18:59 06:59 18:59 Intake Total 700 120 Balance 700 120 Intake: Oral 700 120 Other: # Voids 2 2 # Bowel Movements 0 Stool Characteristics Formed Formed Active Medications: Current Medications Acetaminophen (Tylenol) 650 mg PO Q4H PRN PRN Reason: Pain (Mild 1-3) Stop: 10/07/19 17:51 Acetaminophen (Tylenol) 650 mg PO Q4H PRN PRN Reason: Temperature above 101 Stop: 10/07/19 17:53 Alendronate Sodium (Fosamax) 70 mg PO We@0630 [facility] Stop: 11/04/19 06:29 Last Admin: 09/05/19 06:32 Dose: 70 mg Calcium/Vitamin D (Oscal W/Vitamin D) 1 tab PO DAILY [facility] Stop: 09/08/19 08:59 Last Admin: 09/05/19 08:08 Dose: 1 tab Donepezil HCl (Aricept) 10 mg PO [facility] Last Admin: 09/04/19 20:15 Dose: 10 mg General: demented, thin HEENT: NC/AT, PERRLA, EOMI Neck: Supple, No JVD, No thyromegaly Lungs: CTAB Cardiovascular: RRR, Normal S1, Normal S2, with murmur Abdomen: soft, thin, non-distended, positive bowel sound Extremities: excoriation Neurological: no change Internal Medicine Assmt/Plan - Assessment Assessment: alzheimers dementa elevated chol djd osteoporosis ho old left hip fx - Plan Plan: fall precaution nutritional support cont on calcium supplemetn - resume fosamax will cont to follow dw rn add mvi Nutritional Asmnt/Malnutr-PDOC - Dietary Evaluation Malnutrition Findings (Please click <Entered> for more info): Nutritional Asmnt/Malnutrition Start: 01/04/19 09: 50 Text: Status: Complete Freq: Protocol: Document 01/04/19 14:59 LCHENG (Rec: 01/04/19 15:06 [id number]) Nutritional Asmnt/Malnutrition Patient General Information Nutritional Screening Moderate Risk Diagnosis psychosis Pertinent Medical Hx/Surgical Hx dementia, DJD, osteoporosis Subjective Information pt seen lying in bed, awake and alert, stated food has beed great. Pt is not a big eater. Encourage to eat balanced meals and pt agreed with it. Per EMR, PO intake 75 -100% Current Diet Order/ Nutrition Support regular Pertinent Medications reviewed Pertinent Labs 12/31 reviewed Nutritional Hx/Data Height 1.65 m Height (Calculated Centimeters) 165.1 Current Weight (lbs) 74.843 kg Weight (Calculated Kilograms) 74.8 Weight (Calculated Grams) 61783.7 [place] Body Weight 125 Body Mass Index (BMI) 27.4 Weight Status Overweight GI Symptoms GI Symptoms None Last BM 01/04 x 2 Difficult in: None Skin Integrity/Comment: intact Current %PO Good (75-100%) Estimated Nutritional Goals BEE in Kcals: Using Current wt Calories/Kcals/Kg 23-27 Kcals Calculated 5474-3901 Protein: Using Current wt Protein g/k.8 Protein Calculated 60 Fluid: ml 1725-1998ml (1ml/kcal) Nutritional Problem No current Nutrition Prob Problem N/A Malnutrition Alert Is there a minimum of two criteria No selected? Query Text:Check all the applicable criteria. A minimum of two criteria are recommended for diagnosis of either severe or non-severe malnutrition. Malnutrition Related to Morbid Obesity Malnutrition related to morbid obesity No Intervention/Recommendation Comments 1. Continue with regular diet as ordered. 2. Monitor PO intake, wt, labs and skin integrity 3. F/U as low risk in 7 days Expected Outcomes/Goals Expected Outcomes/Goals 1. PO intake to meet at least 75% of nutritional needs. 2. Wt stability, skin to remain intact, labs to approach WNL.
--- NOTE | 2019-09-05 22:49 | Progress Notes ---
DATE: Case was discussed with staff of the patient, reviewed records. The patient had to have MRI yesterday for her thyroid. The results are pending. She is sleeping better, eating better. No side effects with the medication, no sedation, no nausea. She is on medication for dementia. Working on discharge plan. No acting out behavior. She is on Aricept only multivitamin, calcium, and Fosamax and we will continue the patient in group therapy, milieu therapy, and adjust medications as needed. JOB# [id number] ADALBERTO
[2019-09-06] MEDS: Multivitamin w/ Minerals Tab PO SCH (08:30)
[2019-09-06] MEDS: Calcium Carb/Vit D 500 mg/200 U Tab PO SCH (08:30)
--- NOTE | 2019-09-06 13:11 | Internal Medicine Prog Note ---
Internal Medicine Subjective - Subjective Patient seen and examined:: with staff, chart reviewed Patient is:: awake, verbal, interactive, ambulating, confused Per staff patient has:: no adverse event, no episodes of fall, eating well, tolerating meds Internal Medicine Objective - Results Recent Labs: Laboratory Last Values POC Glucose 112 MG/DL (70 - 105) H 08/11/19 21:00 Triglycerides 162 mg/dL (<150) H 12/31/18 08:04 Cholesterol 234 mg/dL (<200) H 12/31/18 08:04 LDL Cholesterol Direct 155 mg/dL (75-193) 12/31/18 08:04 HDL Cholesterol 62 mg/dL (23-92) 12/31/18 08:04 - Physical Exam Vitals and I&O: Vital Signs Temp 98.5 F 09/06/19 06:54 Pulse 64 09/06/19 06:54 Resp 18 09/06/19 06:54 BP 107/65 09/06/19 06:54 Pulse Ox 97 09/06/19 06:54 Intake & Output 09/05/19 09/06/19 09/06/19 18:59 06:59 18:59 Intake Total 240 Balance 240 Intake: Oral 240 Other: # Voids 2 Stool Characteristics Formed Formed Formed Active Medications: Current Medications Acetaminophen (Tylenol) 650 mg PO Q4H PRN PRN Reason: Pain (Mild 1-3) Stop: 10/07/19 17:51 Acetaminophen (Tylenol) 650 mg PO Q4H PRN PRN Reason: Temperature above 101 Stop: 10/07/19 17:53 Alendronate Sodium (Fosamax) 70 mg PO We@0630 [facility] Stop: 11/04/19 06:29 Last Admin: 09/05/19 06:32 Dose: 70 mg Calcium/Vitamin D (Oscal W/Vitamin D) 1 tab PO DAILY [facility] Stop: 09/08/19 08:59 Last Admin: 09/06/19 08:30 Dose: 1 tab Donepezil HCl (Aricept) 10 mg PO HS [facility] Last Admin: 09/05/19 20:55 Dose: 10 mg General: demented, thin HEENT: NC/AT, PERRLA, EOMI Neck: Supple, No JVD, No thyromegaly Lungs: CTAB Cardiovascular: RRR, Normal S1, Normal S2, with murmur Abdomen: soft, thin, non-distended, positive bowel sound Extremities: excoriation Neurological: no change Internal Medicine Assmt/Plan - Assessment Assessment: alzheimers dementa elevated chol djd osteoporosis ho old left hip fx - Plan Plan: fall precaution nutritional support cont on calcium supplemetn - resume fosamax will cont to follow dw rn add mvi Nutritional Asmnt/Malnutr-PDOC - Dietary Evaluation Malnutrition Findings (Please click <Entered> for more info): Nutritional Asmnt/Malnutrition Start: 01/04/19 09: 50 Text: Status: Complete Freq: Protocol: Document 01/04/19 14:59 LCHENG (Rec: 01/04/19 15:06 LCHENG [email or web address]) Nutritional Asmnt/Malnutrition Patient General Information Nutritional Screening Moderate Risk Diagnosis psychosis Pertinent Medical Hx/Surgical Hx dementia, DJD, osteoporosis Subjective Information pt seen lying in bed, awake and alert, stated food has beed great. Pt is not a big eater. Encourage to eat balanced meals and pt agreed with it. Per EMR, PO intake 75 -100% Current Diet Order/ Nutrition Support regular Pertinent Medications reviewed Pertinent Labs 12/31 reviewed Nutritional Hx/Data Height 1.65 m Height (Calculated Centimeters) 165.1 Current Weight (lbs) 74.843 kg Weight (Calculated Kilograms) 74.8 Weight (Calculated Grams) 71200.7 [place] Body Weight 125 Body Mass Index (BMI) 27.4 Weight Status Overweight GI Symptoms GI Symptoms None Last BM 01/04 x 2 Difficult in: None Skin Integrity/Comment: intact Current %PO Good (75-100%) Estimated Nutritional Goals BEE in Kcals: Using Current wt Calories/Kcals/Kg 23-27 Kcals Calculated 5548-4366 Protein: Using Current wt Protein g/k.8 Protein Calculated 60 Fluid: ml 1725-1998ml (1ml/kcal) Nutritional Problem No current Nutrition Prob Problem N/A Malnutrition Alert Is there a minimum of two criteria No selected? Query Text:Check all the applicable criteria. A minimum of two criteria are recommended for diagnosis of either severe or non-severe malnutrition. Malnutrition Related to Morbid Obesity Malnutrition related to morbid obesity No Intervention/Recommendation Comments 1. Continue with regular diet as ordered. 2. Monitor PO intake, wt, labs and skin integrity 3. F/U as low risk in 7 days Expected Outcomes/Goals Expected Outcomes/Goals 1. PO intake to meet at least 75% of nutritional needs. 2. Wt stability, skin to remain intact, labs to approach WNL.
--- NOTE | 2019-09-06 21:51 | Progress Notes ---
DATE: 09/06/2019 Case was discussed with staff of the patient, reviewed records. The patient is awaiting placement. Sleeping better, eating better. No side effects with the medication, no sedation, no nausea. We will continue the patient in group therapy, milieu therapy, and adjust medications as needed. JOB# [id number]
[2019-09-07] MEDS: Multivitamin w/ Minerals Tab PO SCH (08:26)
[2019-09-07] MEDS: Calcium Carb/Vit D 500 mg/200 U Tab PO SCH (08:26)
--- NOTE | 2019-09-07 15:36 | Internal Medicine Prog Note ---
Internal Medicine Subjective - Subjective Patient seen and examined:: with staff, chart reviewed, other (had diarrhea, feels better now) Patient is:: awake, verbal, interactive, ambulating, confused Per staff patient has:: no adverse event, no episodes of fall, eating well, tolerating meds Internal Medicine Objective - Results Recent Labs: Laboratory Last Values POC Glucose 112 MG/DL (70 - 105) H 08/11/19 21:00 Triglycerides 162 mg/dL (<150) H 12/31/18 08:04 Cholesterol 234 mg/dL (<200) H 12/31/18 08:04 LDL Cholesterol Direct 155 mg/dL (75-193) 12/31/18 08:04 HDL Cholesterol 62 mg/dL (23-92) 12/31/18 08:04 - Physical Exam Vitals and I&O: Vital Signs Temp 97.8 F 09/07/19 14:17 Pulse 77 09/07/19 14:17 Resp 18 09/07/19 14:17 BP 105/68 09/07/19 14:17 Pulse Ox 98 09/07/19 14:17 Intake & Output 09/06/19 09/07/19 09/07/19 18:59 06:59 18:59 Intake Total 1200 120 Output Total 1 Balance 1200 119 Intake: Oral 1200 120 Output: Urine/Stool Mix 1 Other: # Voids 3 1 # Bowel Movements 2 Stool Characteristics Formed Formed Active Medications: Current Medications Acetaminophen (Tylenol) 650 mg PO Q4H PRN PRN Reason: Pain (Mild 1-3) Stop: 10/07/19 17:51 Acetaminophen (Tylenol) 650 mg PO Q4H PRN PRN Reason: Temperature above 101 Stop: 10/07/19 17:53 Alendronate Sodium (Fosamax) 70 mg PO We@0630 [facility] Stop: 11/04/19 06:29 Last Admin: 09/05/19 06:32 Dose: 70 mg Calcium/Vitamin D (Oscal W/Vitamin D) 1 tab PO DAILY [facility] Stop: 09/08/19 08:59 Last Admin: 09/07/19 08:26 Dose: 1 tab Donepezil HCl (Aricept) 10 mg PO [facility] Last Admin: 09/06/19 21:37 Dose: 10 mg General: demented, thin HEENT: NC/AT, PERRLA, EOMI Neck: Supple, No JVD, No thyromegaly Lungs: CTAB Cardiovascular: RRR, Normal S1, Normal S2, with murmur Abdomen: soft, thin, non-distended, positive bowel sound Extremities: excoriation Neurological: no change Internal Medicine Assmt/Plan - Assessment Assessment: alzheimers dementa elevated chol djd osteoporosis ho old left hip fx - Plan Plan: fall precaution nutritional support cont on calcium supplemetn - resume fosamax will cont to follow dw rn add mvi check labs Nutritional Asmnt/Malnutr-PDOC - Dietary Evaluation Malnutrition Findings (Please click <Entered> for more info): Nutritional Asmnt/Malnutrition Start: 01/04/19 09: 50 Text: Status: Complete Freq: Protocol: Document 01/04/19 14:59 TARIK (Rec: 01/04/19 15:06 TARIK [email or web address]) Nutritional Asmnt/Malnutrition Patient General Information Nutritional Screening Moderate Risk Diagnosis psychosis Pertinent Medical Hx/Surgical Hx dementia, DJD, osteoporosis Subjective Information pt seen lying in bed, awake and alert, stated food has beed great. Pt is not a big eater. Encourage to eat balanced meals and pt agreed with it. Per EMR, PO intake 75 -100% Current Diet Order/ Nutrition Support regular Pertinent Medications reviewed Pertinent Labs 12/31 reviewed Nutritional Hx/Data Height 1.65 m Height (Calculated Centimeters) 165.1 Current Weight (lbs) 74.843 kg Weight (Calculated Kilograms) 74.8 Weight (Calculated Grams) 57437.7 [place] Body Weight 125 Body Mass Index (BMI) 27.4 Weight Status Overweight GI Symptoms GI Symptoms None Last BM 01/04 x 2 Difficult in: None Skin Integrity/Comment: intact Current %PO Good (75-100%) Estimated Nutritional Goals BEE in Kcals: Using Current wt Calories/Kcals/Kg 23-27 Kcals Calculated 4689-9456 Protein: Using Current wt Protein g/k.8 Protein Calculated 60 Fluid: ml 1725-1998ml (1ml/kcal) Nutritional Problem No current Nutrition Prob Problem N/A Malnutrition Alert Is there a minimum of two criteria No selected? Query Text:Check all the applicable criteria. A minimum of two criteria are recommended for diagnosis of either severe or non-severe malnutrition. Malnutrition Related to Morbid Obesity Malnutrition related to morbid obesity No Intervention/Recommendation Comments 1. Continue with regular diet as ordered. 2. Monitor PO intake, wt, labs and skin integrity 3. F/U as low risk in 7 days Expected Outcomes/Goals Expected Outcomes/Goals 1. PO intake to meet at least 75% of nutritional needs. 2. Wt stability, skin to remain intact, labs to approach WNL.
--- NOTE | 2019-09-08 00:11 | Progress Notes ---
DATE: SUBJECTIVE: Chart was reviewed and the patient interviewed. Also discussed the patient's condition with the staff and reviewed records and labs. The patient seems to be slightly weak and have psychomotor retardation. The patient also is still anxious about her discharge date. According to staff, the patient is still waiting for attorneys work in order to release her money and order to be placed. Otherwise, the patient is compliant with taking her medications and no side effects of medications. ASSESSMENT: The patient is still considered to be gravely disabled and waiting for her discharge plans. Otherwise, we will continue current medications and treatment and supportive therapy. JOB# [id number]
[2019-09-08] MEDS: Multivitamin w/ Minerals Tab PO SCH (08:20)
[2019-09-08] MEDS: Calcium Carb/Vit D 500 mg/200 U Tab PO SCH (08:20)
--- NOTE | 2019-09-08 10:37 | Internal Medicine Prog Note ---
Internal Medicine Subjective - Subjective Service Date: 09/08/19 Patient is:: awake, verbal, interactive, ambulating, confused Per staff patient has:: no adverse event, no episodes of fall, eating well, tolerating meds Internal Medicine Objective - Results Recent Labs: Laboratory Last Values POC Glucose 112 MG/DL (70 - 105) H 08/11/19 21:00 Triglycerides 162 mg/dL (<150) H 12/31/18 08:04 Cholesterol 234 mg/dL (<200) H 12/31/18 08:04 LDL Cholesterol Direct 155 mg/dL (75-193) 12/31/18 08:04 HDL Cholesterol 62 mg/dL (23-92) 12/31/18 08:04 - Physical Exam Vitals and I&O: Vital Signs Temp 98.2 F 09/08/19 06:27 Pulse 82 09/08/19 06:27 Resp 19 09/08/19 06:27 BP 95/73 09/08/19 06:27 Pulse Ox 97 09/08/19 06:27 Intake & Output 09/07/19 09/08/19 09/08/19 18:59 06:59 18:59 Intake Total 1000 300 Balance 1000 300 Intake: Oral 1000 300 Other: # Voids 4 0 # Bowel Movements 1 0 Stool Characteristics Formed Formed Active Medications: Current Medications Acetaminophen (Tylenol) 650 mg PO Q4H PRN PRN Reason: Pain (Mild 1-3) Stop: 10/07/19 17:51 Acetaminophen (Tylenol) 650 mg PO Q4H PRN PRN Reason: Temperature above 101 Stop: 10/07/19 17:53 Alendronate Sodium (Fosamax) 70 mg PO We@0630 [facility] Stop: 11/04/19 06:29 Last Admin: 09/05/19 06:32 Dose: 70 mg Donepezil HCl (Aricept) 10 mg PO [facility] Last Admin: 09/07/19 21:05 Dose: 10 mg General: demented, thin HEENT: NC/AT, PERRLA, EOMI Neck: Supple, No JVD, No thyromegaly Lungs: CTAB Cardiovascular: RRR, Normal S1, Normal S2, with murmur Abdomen: soft, thin, non-distended, positive bowel sound Extremities: excoriation Neurological: no change Internal Medicine Assmt/Plan - Assessment Assessment: alzheimers dementa elevated chol djd osteoporosis - Plan Plan: fall precaution nutritional support cont on calcium supplement will cont to follow dw rn add mvi placement ongoing Nutritional Asmnt/Malnutr-PDOC - Dietary Evaluation Malnutrition Findings (Please click <Entered> for more info): Nutritional Asmnt/Malnutrition Start: 01/04/19 09: 50 Text: Status: Complete Freq: Protocol: Document 01/04/19 14:59 TARIK (Rec: 01/04/19 15:06 LCCOREY [email or web address]) Nutritional Asmnt/Malnutrition Patient General Information Nutritional Screening Moderate Risk Diagnosis psychosis Pertinent Medical Hx/Surgical Hx dementia, DJD, osteoporosis Subjective Information pt seen lying in bed, awake and alert, stated food has beed great. Pt is not a big eater. Encourage to eat balanced meals and pt agreed with it. Per EMR, PO intake 75 -100% Current Diet Order/ Nutrition Support regular Pertinent Medications reviewed Pertinent Labs 5/ reviewed Nutritional Hx/Data Height 5 ft 5 in Height (Calculated Centimeters) 165.1 Current Weight (lbs) 165 lb Weight (Calculated Kilograms) 74.8 Weight (Calculated Grams) 15778.7 [place] Body Weight 125 Body Mass Index (BMI) 27.4 Weight Status Overweight GI Symptoms GI Symptoms None Last BM 01/04 x 2 Difficult in: None Skin Integrity/Comment: intact Current %PO Good (75-100%) Estimated Nutritional Goals BEE in Kcals: Using Current wt Calories/Kcals/Kg 23-27 Kcals Calculated 1241-4594 Protein: Using Current wt Protein g/k.8 Protein Calculated 60 Fluid: ml 1725-1998ml (1ml/kcal) Nutritional Problem No current Nutrition Prob Problem N/A Malnutrition Alert Is there a minimum of two criteria No selected? Query Text:Check all the applicable criteria. A minimum of two criteria are recommended for diagnosis of either severe or non-severe malnutrition. Malnutrition Related to Morbid Obesity Malnutrition related to morbid obesity No Intervention/Recommendation Comments 1. Continue with regular diet as ordered. 2. Monitor PO intake, wt, labs and skin integrity 3. F/U as low risk in 7 days Expected Outcomes/Goals Expected Outcomes/Goals 1. PO intake to meet at least 75% of nutritional needs. 2. Wt stability, skin to remain intact, labs to approach WNL.
--- NOTE | 2019-09-09 01:02 | Progress Notes ---
DATE: 09/08/2019 SUBJECTIVE: No acute events reported overnight. Labs were reviewed. Anxious about discharge. No SI, HI. ASSESSMENT AND PLAN: Gravely disabled with dementia, awaiting placement. JOB# [id number]
[2019-09-09] MEDS: Multivitamin w/ Minerals Tab PO SCH (08:45)
--- NOTE | 2019-09-09 09:01 | Internal Medicine Prog Note ---
Internal Medicine Subjective - Subjective Service Date: 09/09/19 Patient is:: awake, verbal, interactive, ambulating, confused Per staff patient has:: no adverse event, no episodes of fall, eating well, tolerating meds Internal Medicine Objective - Results Recent Labs: Laboratory Last Values POC Glucose 112 MG/DL (70 - 105) H 08/11/19 21:00 Triglycerides 162 mg/dL (<150) H 12/31/18 08:04 Cholesterol 234 mg/dL (<200) H 12/31/18 08:04 LDL Cholesterol Direct 155 mg/dL (75-193) 12/31/18 08:04 HDL Cholesterol 62 mg/dL (23-92) 12/31/18 08:04 - Physical Exam Vitals and I&O: Vital Signs Temp 97.5 F 09/09/19 06:46 Pulse 63 09/09/19 06:46 Resp 19 09/09/19 06:46 BP 102/68 09/09/19 06:46 Pulse Ox 97 09/09/19 06:46 Intake & Output 09/08/19 09/09/19 09/09/19 18:59 06:59 18:59 Intake Total 900 180 Balance 900 180 Intake: Oral 900 180 Other: # Voids 3 2 # Bowel Movements 1 0 Stool Characteristics Formed Formed Active Medications: Current Medications Acetaminophen (Tylenol) 650 mg PO Q4H PRN PRN Reason: Pain (Mild 1-3) Stop: 10/07/19 17:51 Acetaminophen (Tylenol) 650 mg PO Q4H PRN PRN Reason: Temperature above 101 Stop: 10/07/19 17:53 Alendronate Sodium (Fosamax) 70 mg PO We@0630 [facility] Stop: 11/04/19 06:29 Last Admin: 09/05/19 06:32 Dose: 70 mg Donepezil HCl (Aricept) 10 mg PO [facility] Last Admin: 09/08/19 21:50 Dose: 10 mg General: demented, thin HEENT: NC/AT, PERRLA, EOMI Neck: Supple, No JVD, No thyromegaly Lungs: CTAB Cardiovascular: RRR, Normal S1, Normal S2, with murmur Abdomen: soft, thin, non-distended, positive bowel sound Extremities: excoriation Neurological: no change Internal Medicine Assmt/Plan - Assessment Assessment: alzheimers dementa elevated chol djd osteoporosis - Plan Plan: fall precaution nutritional support cont on calcium supplement will cont to follow dw rn add mvi placement ongoing Nutritional Asmnt/Malnutr-PDOC - Dietary Evaluation Malnutrition Findings (Please click <Entered> for more info): Nutritional Asmnt/Malnutrition Start: 01/04/19 09: 50 Text: Status: Complete Freq: Protocol: Document 01/04/19 14:59 TARIK (Rec: 01/04/19 15:06 LCCOREY [email or web address]) Nutritional Asmnt/Malnutrition Patient General Information Nutritional Screening Moderate Risk Diagnosis psychosis Pertinent Medical Hx/Surgical Hx dementia, DJD, osteoporosis Subjective Information pt seen lying in bed, awake and alert, stated food has beed great. Pt is not a big eater. Encourage to eat balanced meals and pt agreed with it. Per EMR, PO intake 75 -100% Current Diet Order/ Nutrition Support regular Pertinent Medications reviewed Pertinent Labs 5/ reviewed Nutritional Hx/Data Height 5 ft 5 in Height (Calculated Centimeters) 165.1 Current Weight (lbs) 165 lb Weight (Calculated Kilograms) 74.8 Weight (Calculated Grams) 99409.7 [place] Body Weight 125 Body Mass Index (BMI) 27.4 Weight Status Overweight GI Symptoms GI Symptoms None Last BM 01/04 x 2 Difficult in: None Skin Integrity/Comment: intact Current %PO Good (75-100%) Estimated Nutritional Goals BEE in Kcals: Using Current wt Calories/Kcals/Kg 23-27 Kcals Calculated 8466-6990 Protein: Using Current wt Protein g/k.8 Protein Calculated 60 Fluid: ml 1725-1998ml (1ml/kcal) Nutritional Problem No current Nutrition Prob Problem N/A Malnutrition Alert Is there a minimum of two criteria No selected? Query Text:Check all the applicable criteria. A minimum of two criteria are recommended for diagnosis of either severe or non-severe malnutrition. Malnutrition Related to Morbid Obesity Malnutrition related to morbid obesity No Intervention/Recommendation Comments 1. Continue with regular diet as ordered. 2. Monitor PO intake, wt, labs and skin integrity 3. F/U as low risk in 7 days Expected Outcomes/Goals Expected Outcomes/Goals 1. PO intake to meet at least 75% of nutritional needs. 2. Wt stability, skin to remain intact, labs to approach WNL.
--- NOTE | 2019-09-09 23:40 | Progress Notes ---
DATE: 09/09/2019 SUBJECTIVE: The patient was seen and evaluated. The patient's chart reviewed. No acute events reported overnight. Today on [id number] evaluation, no side effects endorsed by the patient. ASSESSMENT AND PLAN: Gravely disabled with dementia, awaiting placement. JOB# [id number]
--- NOTE | 2019-09-10 07:18 | Progress Notes ---
DATE: 09/10/2019 SUBJECTIVE: Chart was reviewed and the patient interviewed. Also discussed the patient's condition with the staff and reviewed records and labs. The patient remains anxious and she is still in a depressed mood for being in the hospital for a long time. At the same time, she is adjusting well and no major behavioral problems. The patient also is still forgetful and needs redirections. Otherwise, the patient is compliant with taking her medications with no side effects of medications. ASSESSMENT: The patient is not agitated or psychotic, but waiting for placement. TREATMENT PLAN: Continue monitoring behavior and condition and continue working on discharge plans. JOB# [id number]
[2019-09-10] MEDS: Multivitamin w/ Minerals Tab PO SCH (09:05)
--- NOTE | 2019-09-10 12:29 | Internal Medicine Prog Note ---
Internal Medicine Subjective - Subjective Patient seen and examined:: with staff, chart reviewed Patient is:: awake, verbal, interactive, ambulating, confused Per staff patient has:: no adverse event, no episodes of fall, eating well, tolerating meds Internal Medicine Objective - Results Recent Labs: Laboratory Last Values POC Glucose 112 MG/DL (70 - 105) H 08/11/19 21:00 Triglycerides 162 mg/dL (<150) H 12/31/18 08:04 Cholesterol 234 mg/dL (<200) H 12/31/18 08:04 LDL Cholesterol Direct 155 mg/dL (75-193) 12/31/18 08:04 HDL Cholesterol 62 mg/dL (23-92) 12/31/18 08:04 - Physical Exam Vitals and I&O: Vital Signs Temp 97.3 F 09/10/19 06:09 Pulse 66 09/10/19 06:09 Resp 17 09/10/19 08:00 BP 116/70 09/10/19 06:09 Pulse Ox 97 09/10/19 06:09 Intake & Output 09/09/19 09/10/19 09/10/19 18:59 06:59 18:59 Intake Total 840 240 Balance 840 240 Intake: Oral 840 240 Other: # Voids 3 2 # Bowel Movements 1 Stool Characteristics Formed Formed Active Medications: Current Medications Acetaminophen (Tylenol) 650 mg PO Q4H PRN PRN Reason: Pain (Mild 1-3) Stop: 10/07/19 17:51 Acetaminophen (Tylenol) 650 mg PO Q4H PRN PRN Reason: Temperature above 101 Stop: 10/07/19 17:53 Alendronate Sodium (Fosamax) 70 mg PO We@0630 [facility] Stop: 11/04/19 06:29 Last Admin: 09/05/19 06:32 Dose: 70 mg Donepezil HCl (Aricept) 10 mg PO [facility] Last Admin: 09/09/19 20:48 Dose: 10 mg General: demented, thin HEENT: NC/AT, PERRLA, EOMI Neck: Supple, No JVD, No thyromegaly Lungs: CTAB Cardiovascular: RRR, Normal S1, Normal S2, with murmur Abdomen: soft, thin, non-distended, positive bowel sound Extremities: excoriation Neurological: no change Internal Medicine Assmt/Plan - Assessment Assessment: alzheimers dementa elevated chol djd osteoporosis ho old left hip fx - Plan Plan: fall precaution nutritional support cont on calcium supplemetn - resume fosamax will cont to follow dw rn add mvi check labs Nutritional Asmnt/Malnutr-PDOC - Dietary Evaluation Malnutrition Findings (Please click <Entered> for more info): Nutritional Asmnt/Malnutrition Start: 01/04/19 09: 50 Text: Status: Complete Freq: Protocol: Document 01/04/19 14:59 LCHENG (Rec: 01/04/19 15:06 LCHENG [email or web address]) Nutritional Asmnt/Malnutrition Patient General Information Nutritional Screening Moderate Risk Diagnosis psychosis Pertinent Medical Hx/Surgical Hx dementia, DJD, osteoporosis Subjective Information pt seen lying in bed, awake and alert, stated food has beed great. Pt is not a big eater. Encourage to eat balanced meals and pt agreed with it. Per EMR, PO intake 75 -100% Current Diet Order/ Nutrition Support regular Pertinent Medications reviewed Pertinent Labs 12/31 reviewed Nutritional Hx/Data Height 1.65 m Height (Calculated Centimeters) 165.1 Current Weight (lbs) 74.843 kg Weight (Calculated Kilograms) 74.8 Weight (Calculated Grams) 11775.7 [place] Body Weight 125 Body Mass Index (BMI) 27.4 Weight Status Overweight GI Symptoms GI Symptoms None Last BM 01/04 x 2 Difficult in: None Skin Integrity/Comment: intact Current %PO Good (75-100%) Estimated Nutritional Goals BEE in Kcals: Using Current wt Calories/Kcals/Kg 23-27 Kcals Calculated 4274-9578 Protein: Using Current wt Protein g/k.8 Protein Calculated 60 Fluid: ml 1725-1998ml (1ml/kcal) Nutritional Problem No current Nutrition Prob Problem N/A Malnutrition Alert Is there a minimum of two criteria No selected? Query Text:Check all the applicable criteria. A minimum of two criteria are recommended for diagnosis of either severe or non-severe malnutrition. Malnutrition Related to Morbid Obesity Malnutrition related to morbid obesity No Intervention/Recommendation Comments 1. Continue with regular diet as ordered. 2. Monitor PO intake, wt, labs and skin integrity 3. F/U as low risk in 7 days Expected Outcomes/Goals Expected Outcomes/Goals 1. PO intake to meet at least 75% of nutritional needs. 2. Wt stability, skin to remain intact, labs to approach WNL.
[2019-09-11] MEDS: Multivitamin w/ Minerals Tab PO SCH (09:06)
--- NOTE | 2019-09-11 13:01 | Internal Medicine Prog Note ---
Internal Medicine Subjective - Subjective Patient seen and examined:: with staff, chart reviewed Patient is:: awake, verbal, interactive, ambulating, confused Per staff patient has:: no adverse event, no episodes of fall, eating well, tolerating meds Internal Medicine Objective - Results Recent Labs: Laboratory Last Values POC Glucose 112 MG/DL (70 - 105) H 08/11/19 21:00 Triglycerides 162 mg/dL (<150) H 12/31/18 08:04 Cholesterol 234 mg/dL (<200) H 12/31/18 08:04 LDL Cholesterol Direct 155 mg/dL (75-193) 12/31/18 08:04 HDL Cholesterol 62 mg/dL (23-92) 12/31/18 08:04 - Physical Exam Vitals and I&O: Vital Signs Temp 98.1 F 09/11/19 06:12 Pulse 57 09/11/19 06:12 Resp 20 09/11/19 06:12 BP 114/68 09/11/19 06:12 Pulse Ox 96 09/11/19 06:12 Intake & Output 09/10/19 09/11/19 09/11/19 18:59 06:59 18:59 Intake Total 1000 420 Balance 1000 420 Intake: Oral 1000 420 Other: # Voids 3 1 # Bowel Movements 1 0 Stool Characteristics Formed Formed Active Medications: Current Medications Acetaminophen (Tylenol) 650 mg PO Q4H PRN PRN Reason: Pain (Mild 1-3) Stop: 10/07/19 17:51 Acetaminophen (Tylenol) 650 mg PO Q4H PRN PRN Reason: Temperature above 101 Stop: 10/07/19 17:53 Alendronate Sodium (Fosamax) 70 mg PO We@0630 [facility] Stop: 11/04/19 06:29 Last Admin: 09/05/19 06:32 Dose: 70 mg Donepezil HCl (Aricept) 10 mg PO [facility] Last Admin: 09/10/19 21:12 Dose: 10 mg General: demented, thin HEENT: NC/AT, PERRLA, EOMI Neck: Supple, No JVD, No thyromegaly Lungs: CTAB Cardiovascular: RRR, Normal S1, Normal S2, with murmur Abdomen: soft, thin, non-distended, positive bowel sound Extremities: excoriation Neurological: no change Internal Medicine Assmt/Plan - Assessment Assessment: alzheimers dementa elevated chol djd osteoporosis ho old left hip fx - Plan Plan: fall precaution nutritional support cont on calcium supplemetn - resume fosamax will cont to follow dw rn add mvi check labs Nutritional Asmnt/Malnutr-PDOC - Dietary Evaluation Malnutrition Findings (Please click <Entered> for more info): Nutritional Asmnt/Malnutrition Start: 01/04/19 09: 50 Text: Status: Complete Freq: Protocol: Document 01/04/19 14:59 LCJOSEG (Rec: 01/04/19 15:06 LCHENG [email or web address]) Nutritional Asmnt/Malnutrition Patient General Information Nutritional Screening Moderate Risk Diagnosis psychosis Pertinent Medical Hx/Surgical Hx dementia, DJD, osteoporosis Subjective Information pt seen lying in bed, awake and alert, stated food has beed great. Pt is not a big eater. Encourage to eat balanced meals and pt agreed with it. Per EMR, PO intake 75 -100% Current Diet Order/ Nutrition Support regular Pertinent Medications reviewed Pertinent Labs 12/31 reviewed Nutritional Hx/Data Height 1.65 m Height (Calculated Centimeters) 165.1 Current Weight (lbs) 74.843 kg Weight (Calculated Kilograms) 74.8 Weight (Calculated Grams) 10965.7 [place] Body Weight 125 Body Mass Index (BMI) 27.4 Weight Status Overweight GI Symptoms GI Symptoms None Last BM 01/04 x 2 Difficult in: None Skin Integrity/Comment: intact Current %PO Good (75-100%) Estimated Nutritional Goals BEE in Kcals: Using Current wt Calories/Kcals/Kg 23-27 Kcals Calculated 6052-1216 Protein: Using Current wt Protein g/k.8 Protein Calculated 60 Fluid: ml 1725-1998ml (1ml/kcal) Nutritional Problem No current Nutrition Prob Problem N/A Malnutrition Alert Is there a minimum of two criteria No selected? Query Text:Check all the applicable criteria. A minimum of two criteria are recommended for diagnosis of either severe or non-severe malnutrition. Malnutrition Related to Morbid Obesity Malnutrition related to morbid obesity No Intervention/Recommendation Comments 1. Continue with regular diet as ordered. 2. Monitor PO intake, wt, labs and skin integrity 3. F/U as low risk in 7 days Expected Outcomes/Goals Expected Outcomes/Goals 1. PO intake to meet at least 75% of nutritional needs. 2. Wt stability, skin to remain intact, labs to approach WNL.
--- NOTE | 2019-09-11 13:49 | Progress Notes ---
DATE: SUBJECTIVE: Chart reviewed and the patient interviewed. Also discussed the patient's condition with the staff and reviewed records and labs. The patient is still withdrawn and is still in a depressed mood. The patient also is still frustrated with her length of stay since she has been in the hospital for almost 6 months. 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 Otherwise, the patient is compliant with taking her medications with no side effects or behavioral issues. ASSESSMENT: The patient is still considered to be gravely disabled and needs close monitoring. TREATMENT PLAN: Continue to monitor behavior and continue current medications and continue to work on discharge plans. JOB# [id number]
[2019-09-12] MEDS: Multivitamin w/ Minerals Tab PO SCH (08:52)
--- NOTE | 2019-09-12 13:14 | Internal Medicine Prog Note ---
Internal Medicine Subjective - Subjective Patient seen and examined:: with staff, chart reviewed Patient is:: awake, verbal, interactive, ambulating, confused Per staff patient has:: no adverse event, no episodes of fall, eating well, tolerating meds Internal Medicine Objective - Results Recent Labs: Laboratory Last Values POC Glucose 112 MG/DL (70 - 105) H 08/11/19 21:00 Triglycerides 162 mg/dL (<150) H 12/31/18 08:04 Cholesterol 234 mg/dL (<200) H 12/31/18 08:04 LDL Cholesterol Direct 155 mg/dL (75-193) 12/31/18 08:04 HDL Cholesterol 62 mg/dL (23-92) 12/31/18 08:04 - Physical Exam Vitals and I&O: Vital Signs Temp 97.4 F 09/12/19 06:13 Pulse 66 09/12/19 06:13 Resp 20 09/12/19 06:13 BP 114/71 09/12/19 06:13 Pulse Ox 95 09/12/19 06:13 Intake & Output 09/11/19 09/12/19 09/12/19 18:59 06:59 18:59 Intake Total 1000 120 Balance 1000 120 Intake: Oral 1000 120 Other: # Voids 4 3 # Bowel Movements 1 0 Stool Characteristics Formed Active Medications: Current Medications Acetaminophen (Tylenol) 650 mg PO Q4H PRN PRN Reason: Pain (Mild 1-3) Stop: 10/07/19 17:51 Acetaminophen (Tylenol) 650 mg PO Q4H PRN PRN Reason: Temperature above 101 Stop: 10/07/19 17:53 Alendronate Sodium (Fosamax) 70 mg PO We@0630 [facility] Stop: 11/04/19 06:29 Last Admin: 09/05/19 06:32 Dose: 70 mg Donepezil HCl (Aricept) 10 mg PO [facility] Last Admin: 09/11/19 20:26 Dose: 10 mg General: demented, thin HEENT: NC/AT, PERRLA, EOMI Neck: Supple, No JVD, No thyromegaly Lungs: CTAB Cardiovascular: RRR, Normal S1, Normal S2, with murmur Abdomen: soft, thin, non-distended, positive bowel sound Extremities: excoriation Neurological: no change Internal Medicine Assmt/Plan - Assessment Assessment: alzheimers dementa elevated chol djd osteoporosis ho old left hip fx - Plan Plan: fall precaution nutritional support cont on calcium supplemetn - resume fosamax will cont to follow dw rn add mvi check labs Nutritional Asmnt/Malnutr-PDOC - Dietary Evaluation Malnutrition Findings (Please click <Entered> for more info): Nutritional Asmnt/Malnutrition Start: 01/04/19 09: 50 Text: Status: Complete Freq: Protocol: Document 01/04/19 14:59 LCJOSEG (Rec: 01/04/19 15:06 LCHENG [email or web address]) Nutritional Asmnt/Malnutrition Patient General Information Nutritional Screening Moderate Risk Diagnosis psychosis Pertinent Medical Hx/Surgical Hx dementia, DJD, osteoporosis Subjective Information pt seen lying in bed, awake and alert, stated food has beed great. Pt is not a big eater. Encourage to eat balanced meals and pt agreed with it. Per EMR, PO intake 75 -100% Current Diet Order/ Nutrition Support regular Pertinent Medications reviewed Pertinent Labs 12/31 reviewed Nutritional Hx/Data Height 1.65 m Height (Calculated Centimeters) 165.1 Current Weight (lbs) 74.843 kg Weight (Calculated Kilograms) 74.8 Weight (Calculated Grams) 54758.7 [place] Body Weight 125 Body Mass Index (BMI) 27.4 Weight Status Overweight GI Symptoms GI Symptoms None Last BM 01/04 x 2 Difficult in: None Skin Integrity/Comment: intact Current %PO Good (75-100%) Estimated Nutritional Goals BEE in Kcals: Using Current wt Calories/Kcals/Kg 23-27 Kcals Calculated 9393-2076 Protein: Using Current wt Protein g/k.8 Protein Calculated 60 Fluid: ml 1725-1998ml (1ml/kcal) Nutritional Problem No current Nutrition Prob Problem N/A Malnutrition Alert Is there a minimum of two criteria No selected? Query Text:Check all the applicable criteria. A minimum of two criteria are recommended for diagnosis of either severe or non-severe malnutrition. Malnutrition Related to Morbid Obesity Malnutrition related to morbid obesity No Intervention/Recommendation Comments 1. Continue with regular diet as ordered. 2. Monitor PO intake, wt, labs and skin integrity 3. F/U as low risk in 7 days Expected Outcomes/Goals Expected Outcomes/Goals 1. PO intake to meet at least 75% of nutritional needs. 2. Wt stability, skin to remain intact, labs to approach WNL.
--- NOTE | 2019-09-12 14:01 | Progress Notes ---
DATE: 09/12/2019 PSYCHIATRIC PROGRESS NOTE SUBJECTIVE: Chart was reviewed and the patient interviewed. Also discussed the patient's condition with the staff and reviewed records and labs. The patient continued to be in a depressed mood and anxious. She is also still asking for her discharge date. She is still withdrawn and guarded. Also, still asking to go to her home, but she is unable to do so. She is compliant with taking her medications with no side effects of medications. ASSESSMENT: The patient is still considered to be gravely disabled and needs close monitoring. TREATMENT PLAN: Continue to monitor behavior and medications and working on discharge plans and placement issue. JOB# [id number]
--- NOTE | 2019-09-13 07:10 | Progress Notes ---
DATE: PSYCHIATRIC PROGRESS NOTE SUBJECTIVE: Chart was reviewed and the patient interviewed. Also discussed the patient's condition with the staff and reviewed records and labs. The patient is forgetful and started to have episodes of incontinence. She also is still at times wandering around aimlessly. She also still needs redirections. Otherwise, the patient is compliant with taking her medications and no side effects of medications. ASSESSMENT: The patient is still considered to be gravely disabled. TREATMENT PLAN: Continue monitoring her behavior and her condition closely. Also, continue to work on her placement and discharge plans. JOB# [id number]
[2019-09-13] MEDS: Multivitamin w/ Minerals Tab PO SCH (08:34)
--- NOTE | 2019-09-13 12:18 | Internal Medicine Prog Note ---
Internal Medicine Subjective - Subjective Patient seen and examined:: with staff, chart reviewed Patient is:: awake, verbal, interactive, ambulating, confused Per staff patient has:: no adverse event, no episodes of fall, eating well, tolerating meds Internal Medicine Objective - Results Recent Labs: Laboratory Last Values POC Glucose 112 MG/DL (70 - 105) H 08/11/19 21:00 Triglycerides 162 mg/dL (<150) H 12/31/18 08:04 Cholesterol 234 mg/dL (<200) H 12/31/18 08:04 LDL Cholesterol Direct 155 mg/dL (75-193) 12/31/18 08:04 HDL Cholesterol 62 mg/dL (23-92) 12/31/18 08:04 - Physical Exam Vitals and I&O: Vital Signs Temp 98.0 F 09/13/19 05:29 Pulse 89 09/13/19 05:29 Resp 17 09/13/19 08:00 BP 117/77 09/13/19 05:29 Pulse Ox 97 09/13/19 05:29 Intake & Output 09/12/19 09/13/19 09/13/19 18:59 06:59 18:59 Intake Total 1200 240 Balance 1200 240 Intake: Oral 960 240 Other 240 Other: # Voids 3 2 # Bowel Movements 1 0 Active Medications: Current Medications Acetaminophen (Tylenol) 650 mg PO Q4H PRN PRN Reason: Pain (Mild 1-3) Stop: 10/07/19 17:51 Acetaminophen (Tylenol) 650 mg PO Q4H PRN PRN Reason: Temperature above 101 Stop: 10/07/19 17:53 Alendronate Sodium (Fosamax) 70 mg PO QTHUR@0630 [facility] Stop: 11/12/19 06:29 Last Admin: 09/13/19 06:50 Dose: 70 mg Donepezil HCl (Aricept) 10 mg PO HS [facility] Last Admin: 09/12/19 20:51 Dose: 10 mg General: demented, thin HEENT: NC/AT, PERRLA, EOMI Neck: Supple, No JVD, No thyromegaly Lungs: CTAB Cardiovascular: RRR, Normal S1, Normal S2, with murmur Abdomen: soft, thin, non-distended, positive bowel sound Extremities: excoriation Neurological: no change Internal Medicine Assmt/Plan - Assessment Assessment: alzheimers dementa elevated chol djd osteoporosis ho old left hip fx - Plan Plan: fall precaution nutritional support cont on calcium supplemetn - resume fosamax will cont to follow dw rn add mvi check labs Nutritional Asmnt/Malnutr-PDOC - Dietary Evaluation Malnutrition Findings (Please click <Entered> for more info): Nutritional Asmnt/Malnutrition Start: 01/04/19 09: 50 Text: Status: Complete Freq: Protocol: Document 01/04/19 14:59 LCHENG (Rec: 01/04/19 15:06 LCHENG [email or web address]) Nutritional Asmnt/Malnutrition Patient General Information Nutritional Screening Moderate Risk Diagnosis psychosis Pertinent Medical Hx/Surgical Hx dementia, DJD, osteoporosis Subjective Information pt seen lying in bed, awake and alert, stated food has beed great. Pt is not a big eater. Encourage to eat balanced meals and pt agreed with it. Per EMR, PO intake 75 -100% Current Diet Order/ Nutrition Support regular Pertinent Medications reviewed Pertinent Labs 12/31 reviewed Nutritional Hx/Data Height 1.65 m Height (Calculated Centimeters) 165.1 Current Weight (lbs) 74.843 kg Weight (Calculated Kilograms) 74.8 Weight (Calculated Grams) 81356.7 [place] Body Weight 125 Body Mass Index (BMI) 27.4 Weight Status Overweight GI Symptoms GI Symptoms None Last BM 01/04 x 2 Difficult in: None Skin Integrity/Comment: intact Current %PO Good (75-100%) Estimated Nutritional Goals BEE in Kcals: Using Current wt Calories/Kcals/Kg 23-27 Kcals Calculated 6808-6439 Protein: Using Current wt Protein g/k.8 Protein Calculated 60 Fluid: ml 1725-1998ml (1ml/kcal) Nutritional Problem No current Nutrition Prob Problem N/A Malnutrition Alert Is there a minimum of two criteria No selected? Query Text:Check all the applicable criteria. A minimum of two criteria are recommended for diagnosis of either severe or non-severe malnutrition. Malnutrition Related to Morbid Obesity Malnutrition related to morbid obesity No Intervention/Recommendation Comments 1. Continue with regular diet as ordered. 2. Monitor PO intake, wt, labs and skin integrity 3. F/U as low risk in 7 days Expected Outcomes/Goals Expected Outcomes/Goals 1. PO intake to meet at least 75% of nutritional needs. 2. Wt stability, skin to remain intact, labs to approach WNL.
--- NOTE | 2019-09-14 08:40 | Progress Notes ---
DATE: 09/14/2019 SUBJECTIVE: Chart reviewed and the patient interviewed. Also discussed the patient's condition with the staff and reviewed records and labs. The patient is still anxious and depressed. The patient also is still forgetful at times and still needs close monitoring. Otherwise, the patient continued to comply with taking her medications with no side effects of medications. ASSESSMENT: The patient is still gravely disabled and waiting for placement. TREATMENT PLAN: Continue to monitor behavior and her condition closely. Also, continue working on placement issue and discharge plans. JOB# [id number]
[2019-09-14] MEDS: Multivitamin w/ Minerals Tab PO SCH (09:14)
--- NOTE | 2019-09-14 15:17 | Internal Medicine Prog Note ---
Internal Medicine Subjective - Subjective Patient seen and examined:: with staff, chart reviewed Patient is:: awake, verbal, interactive, ambulating, confused Per staff patient has:: no adverse event, no episodes of fall, eating well, tolerating meds Internal Medicine Objective - Results Recent Labs: Laboratory Last Values POC Glucose 112 MG/DL (70 - 105) H 08/11/19 21:00 Triglycerides 162 mg/dL (<150) H 12/31/18 08:04 Cholesterol 234 mg/dL (<200) H 12/31/18 08:04 LDL Cholesterol Direct 155 mg/dL (75-193) 12/31/18 08:04 HDL Cholesterol 62 mg/dL (23-92) 12/31/18 08:04 - Physical Exam Vitals and I&O: Vital Signs Temp 97.5 F 09/14/19 06:30 Pulse 82 09/14/19 06:30 Resp 17 09/14/19 08:00 BP 136/86 09/14/19 06:30 Pulse Ox 96 09/14/19 06:30 Intake & Output 09/13/19 09/14/19 09/14/19 18:59 06:59 18:59 Intake Total 1000 120 Balance 1000 120 Intake: Oral 1000 120 Other: # Voids 4 3 # Bowel Movements 1 Active Medications: Current Medications Acetaminophen (Tylenol) 650 mg PO Q4H PRN PRN Reason: Pain (Mild 1-3) Stop: 10/07/19 17:51 Acetaminophen (Tylenol) 650 mg PO Q4H PRN PRN Reason: Temperature above 101 Stop: 10/07/19 17:53 Alendronate Sodium (Fosamax) 70 mg PO QTHUR@0630 [facility] Stop: 11/12/19 06:29 Last Admin: 09/13/19 06:50 Dose: 70 mg Donepezil HCl (Aricept) 10 mg PO [facility] Last Admin: 09/13/19 21:47 Dose: 10 mg General: demented, thin HEENT: NC/AT, PERRLA, EOMI Neck: Supple, No JVD, No thyromegaly Lungs: CTAB Cardiovascular: RRR, Normal S1, Normal S2, with murmur Abdomen: soft, thin, non-distended, positive bowel sound Extremities: excoriation Neurological: no change Internal Medicine Assmt/Plan - Assessment Assessment: alzheimers dementa elevated chol djd osteoporosis ho old left hip fx - Plan Plan: fall precaution nutritional support cont on calcium supplemetn - resume fosamax will cont to follow dw rn add mvi check labs Nutritional Asmnt/Malnutr-PDOC - Dietary Evaluation Malnutrition Findings (Please click <Entered> for more info): Nutritional Asmnt/Malnutrition Start: 01/04/19 09: 50 Text: Status: Complete Freq: Protocol: Document 01/04/19 14:59 LCCOREY (Rec: 01/04/19 15:06 LCHENG [email or web address]) Nutritional Asmnt/Malnutrition Patient General Information Nutritional Screening Moderate Risk Diagnosis psychosis Pertinent Medical Hx/Surgical Hx dementia, DJD, osteoporosis Subjective Information pt seen lying in bed, awake and alert, stated food has beed great. Pt is not a big eater. Encourage to eat balanced meals and pt agreed with it. Per EMR, PO intake 75 -100% Current Diet Order/ Nutrition Support regular Pertinent Medications reviewed Pertinent Labs 12/31 reviewed Nutritional Hx/Data Height 1.65 m Height (Calculated Centimeters) 165.1 Current Weight (lbs) 74.843 kg Weight (Calculated Kilograms) 74.8 Weight (Calculated Grams) 58895.7 [place] Body Weight 125 Body Mass Index (BMI) 27.4 Weight Status Overweight GI Symptoms GI Symptoms None Last BM 01/04 x 2 Difficult in: None Skin Integrity/Comment: intact Current %PO Good (75-100%) Estimated Nutritional Goals BEE in Kcals: Using Current wt Calories/Kcals/Kg 23-27 Kcals Calculated 2743-2610 Protein: Using Current wt Protein g/k.8 Protein Calculated 60 Fluid: ml 1725-1998ml (1ml/kcal) Nutritional Problem No current Nutrition Prob Problem N/A Malnutrition Alert Is there a minimum of two criteria No selected? Query Text:Check all the applicable criteria. A minimum of two criteria are recommended for diagnosis of either severe or non-severe malnutrition. Malnutrition Related to Morbid Obesity Malnutrition related to morbid obesity No Intervention/Recommendation Comments 1. Continue with regular diet as ordered. 2. Monitor PO intake, wt, labs and skin integrity 3. F/U as low risk in 7 days Expected Outcomes/Goals Expected Outcomes/Goals 1. PO intake to meet at least 75% of nutritional needs. 2. Wt stability, skin to remain intact, labs to approach WNL.
[2019-09-15] MEDS: Multivitamin w/ Minerals Tab PO SCH (08:35)
--- NOTE | 2019-09-15 14:03 | Internal Medicine Prog Note ---
Internal Medicine Subjective - Subjective Patient seen and examined:: with staff, chart reviewed Patient is:: awake, verbal, interactive, ambulating, confused Per staff patient has:: no adverse event, no episodes of fall, eating well, tolerating meds Internal Medicine Objective - Results Recent Labs: Laboratory Last Values POC Glucose 112 MG/DL (70 - 105) H 08/11/19 21:00 Triglycerides 162 mg/dL (<150) H 12/31/18 08:04 Cholesterol 234 mg/dL (<200) H 12/31/18 08:04 LDL Cholesterol Direct 155 mg/dL (75-193) 12/31/18 08:04 HDL Cholesterol 62 mg/dL (23-92) 12/31/18 08:04 - Physical Exam Vitals and I&O: Vital Signs Temp 97.4 F 09/15/19 06:20 Pulse 82 09/15/19 06:20 Resp 19 09/15/19 06:20 BP 115/69 09/15/19 06:20 Pulse Ox 96 09/15/19 06:20 Intake & Output 09/14/19 09/15/19 09/15/19 18:59 06:59 18:59 Intake Total 120 Balance 120 Intake: Oral 120 Other: # Voids 1 # Bowel Movements 0 Active Medications: Current Medications Acetaminophen (Tylenol) 650 mg PO Q4H PRN PRN Reason: Pain (Mild 1-3) Stop: 10/07/19 17:51 Acetaminophen (Tylenol) 650 mg PO Q4H PRN PRN Reason: Temperature above 101 Stop: 10/07/19 17:53 Alendronate Sodium (Fosamax) 70 mg PO QTHUR@0630 [facility] Stop: 11/12/19 06:29 Last Admin: 09/13/19 06:50 Dose: 70 mg Donepezil HCl (Aricept) 10 mg PO [facility] Last Admin: 09/14/19 20:54 Dose: 10 mg General: demented, thin HEENT: NC/AT, PERRLA, EOMI Neck: Supple, No JVD, No thyromegaly Lungs: CTAB Cardiovascular: RRR, Normal S1, Normal S2, with murmur Abdomen: soft, thin, non-distended, positive bowel sound Extremities: excoriation Neurological: no change Internal Medicine Assmt/Plan - Assessment Assessment: alzheimers dementa elevated chol djd osteoporosis ho old left hip fx - Plan Plan: fall precaution nutritional support cont on calcium supplemetn - resume fosamax will cont to follow dw rn add mvi check labs Nutritional Asmnt/Malnutr-PDOC - Dietary Evaluation Malnutrition Findings (Please click <Entered> for more info): Nutritional Asmnt/Malnutrition Start: 01/04/19 09: 50 Text: Status: Complete Freq: Protocol: Document 01/04/19 14:59 LCHENG (Rec: 01/04/19 15:06 LCHENG [email or web address]) Nutritional Asmnt/Malnutrition Patient General Information Nutritional Screening Moderate Risk Diagnosis psychosis Pertinent Medical Hx/Surgical Hx dementia, DJD, osteoporosis Subjective Information pt seen lying in bed, awake and alert, stated food has beed great. Pt is not a big eater. Encourage to eat balanced meals and pt agreed with it. Per EMR, PO intake 75 -100% Current Diet Order/ Nutrition Support regular Pertinent Medications reviewed Pertinent Labs 12/31 reviewed Nutritional Hx/Data Height 1.65 m Height (Calculated Centimeters) 165.1 Current Weight (lbs) 74.843 kg Weight (Calculated Kilograms) 74.8 Weight (Calculated Grams) 26077.7 [place] Body Weight 125 Body Mass Index (BMI) 27.4 Weight Status Overweight GI Symptoms GI Symptoms None Last BM 01/04 x 2 Difficult in: None Skin Integrity/Comment: intact Current %PO Good (75-100%) Estimated Nutritional Goals BEE in Kcals: Using Current wt Calories/Kcals/Kg 23-27 Kcals Calculated 4163-2108 Protein: Using Current wt Protein g/k.8 Protein Calculated 60 Fluid: ml 1725-1998ml (1ml/kcal) Nutritional Problem No current Nutrition Prob Problem N/A Malnutrition Alert Is there a minimum of two criteria No selected? Query Text:Check all the applicable criteria. A minimum of two criteria are recommended for diagnosis of either severe or non-severe malnutrition. Malnutrition Related to Morbid Obesity Malnutrition related to morbid obesity No Intervention/Recommendation Comments 1. Continue with regular diet as ordered. 2. Monitor PO intake, wt, labs and skin integrity 3. F/U as low risk in 7 days Expected Outcomes/Goals Expected Outcomes/Goals 1. PO intake to meet at least 75% of nutritional needs. 2. Wt stability, skin to remain intact, labs to approach WNL.
--- NOTE | 2019-09-15 19:30 | Progress Notes ---
DATE: 09/15/2019 Case was discussed with staff of the patient, reviewed records. The patient is a well-known case to me. I have seen her many times covering for Dr. Mason. The patient continues to be somewhat confused. No acting out behavior. Awaiting placement. No suicidal ideation, no homicidal ideation, no paranoia, no side effects. We will continue to work with the patient in group therapy, milieu therapy, adjust medication as needed. JOB# [id number]
[2019-09-16] MEDS: Multivitamin w/ Minerals Tab PO SCH (08:52)
--- NOTE | 2019-09-16 13:19 | Progress Notes ---
DATE: 09/16/2019 Case was discussed with staff of the patient, reviewed records. The patient is still awaiting placement. The patient continues to have poor insight, unable to make safe plan for self-care, demented, confused. No side effects of the medication, no sedation, no nausea. I will continue outpatient group therapy, milieu therapy, and adjust medications as needed. JOB# [id number]
--- NOTE | 2019-09-16 14:21 | Internal Medicine Prog Note ---
Internal Medicine Subjective - Subjective Patient seen and examined:: with staff, chart reviewed Patient is:: awake, verbal, interactive, ambulating, confused Per staff patient has:: no adverse event, no episodes of fall, eating well, tolerating meds Internal Medicine Objective - Results Recent Labs: Laboratory Last Values POC Glucose 112 MG/DL (70 - 105) H 08/11/19 21:00 Triglycerides 162 mg/dL (<150) H 12/31/18 08:04 Cholesterol 234 mg/dL (<200) H 12/31/18 08:04 LDL Cholesterol Direct 155 mg/dL (75-193) 12/31/18 08:04 HDL Cholesterol 62 mg/dL (23-92) 12/31/18 08:04 - Physical Exam Vitals and I&O: Vital Signs Temp 97.6 F 09/16/19 06:24 Pulse 73 09/16/19 06:24 Resp 17 09/16/19 07:41 BP 116/60 09/16/19 06:24 Pulse Ox 99 09/16/19 06:24 Intake & Output 09/15/19 09/16/19 09/16/19 18:59 06:59 18:59 Intake Total 1200 360 Balance 1200 360 Intake: Oral 960 360 Other 240 Other: # Voids 3 1 # Bowel Movements 1 Active Medications: Current Medications Acetaminophen (Tylenol) 650 mg PO Q4H PRN PRN Reason: Pain (Mild 1-3) Stop: 10/07/19 17:51 Acetaminophen (Tylenol) 650 mg PO Q4H PRN PRN Reason: Temperature above 101 Stop: 10/07/19 17:53 Alendronate Sodium (Fosamax) 70 mg PO QTHUR@0630 [facility] Stop: 11/12/19 06:29 Last Admin: 09/13/19 06:50 Dose: 70 mg Donepezil HCl (Aricept) 10 mg PO [facility] Last Admin: 09/15/19 21:36 Dose: 10 mg General: demented, thin HEENT: NC/AT, PERRLA, EOMI Neck: Supple, No JVD, No thyromegaly Lungs: CTAB Cardiovascular: RRR, Normal S1, Normal S2, with murmur Abdomen: soft, thin, non-distended, positive bowel sound Extremities: excoriation Neurological: no change Internal Medicine Assmt/Plan - Assessment Assessment: alzheimers dementa elevated chol djd osteoporosis ho old left hip fx - Plan Plan: fall precaution nutritional support cont on calcium supplemetn - resume fosamax will cont to follow dw rn add mvi check labs Nutritional Asmnt/Malnutr-PDOC - Dietary Evaluation Malnutrition Findings (Please click <Entered> for more info): Nutritional Asmnt/Malnutrition Start: 01/04/19 09: 50 Text: Status: Complete Freq: Protocol: Document 01/04/19 14:59 [email or web address] (Rec: 01/04/19 15:06 LCHENG [email or web address]) Nutritional Asmnt/Malnutrition Patient General Information Nutritional Screening Moderate Risk Diagnosis psychosis Pertinent Medical Hx/Surgical Hx dementia, DJD, osteoporosis Subjective Information pt seen lying in bed, awake and alert, stated food has beed great. Pt is not a big eater. Encourage to eat balanced meals and pt agreed with it. Per EMR, PO intake 75 -100% Current Diet Order/ Nutrition Support regular Pertinent Medications reviewed Pertinent Labs 12/31 reviewed Nutritional Hx/Data Height 1.65 m Height (Calculated Centimeters) 165.1 Current Weight (lbs) 74.843 kg Weight (Calculated Kilograms) 74.8 Weight (Calculated Grams) 43180.7 [place] Body Weight 125 Body Mass Index (BMI) 27.4 Weight Status Overweight GI Symptoms GI Symptoms None Last BM 01/04 x 2 Difficult in: None Skin Integrity/Comment: intact Current %PO Good (75-100%) Estimated Nutritional Goals BEE in Kcals: Using Current wt Calories/Kcals/Kg 23-27 Kcals Calculated 1228-4556 Protein: Using Current wt Protein g/k.8 Protein Calculated 60 Fluid: ml 1725-1998ml (1ml/kcal) Nutritional Problem No current Nutrition Prob Problem N/A Malnutrition Alert Is there a minimum of two criteria No selected? Query Text:Check all the applicable criteria. A minimum of two criteria are recommended for diagnosis of either severe or non-severe malnutrition. Malnutrition Related to Morbid Obesity Malnutrition related to morbid obesity No Intervention/Recommendation Comments 1. Continue with regular diet as ordered. 2. Monitor PO intake, wt, labs and skin integrity 3. F/U as low risk in 7 days Expected Outcomes/Goals Expected Outcomes/Goals 1. PO intake to meet at least 75% of nutritional needs. 2. Wt stability, skin to remain intact, labs to approach WNL.
[2019-09-17] MEDS: Multivitamin w/ Minerals Tab PO SCH (09:02)
--- NOTE | 2019-09-17 09:53 | Progress Notes ---
DATE: SUBJECTIVE: Chart was reviewed and the patient interviewed. Also discussed the patient's condition with the staff and reviewed records and labs. The patient's affect is brighter. The patient is cooperative and compliant with taking her medications. The patient also is interacting more with peers and others, but still confused and forgetful. ASSESSMENT: The patient is still considered to be gravely disabled. TREATMENT PLAN: Continue same medications and monitoring behavior. Also, continue working on discharge plans and placement issue. JOB# [id number]
--- NOTE | 2019-09-17 12:59 | Internal Medicine Prog Note ---
Internal Medicine Subjective - Subjective Patient seen and examined:: with staff, chart reviewed Patient is:: awake, verbal, interactive, ambulating, confused Per staff patient has:: no adverse event, no episodes of fall, eating well, tolerating meds Internal Medicine Objective - Results Recent Labs: Laboratory Last Values POC Glucose 112 MG/DL (70 - 105) H 08/11/19 21:00 Triglycerides 162 mg/dL (<150) H 12/31/18 08:04 Cholesterol 234 mg/dL (<200) H 12/31/18 08:04 LDL Cholesterol Direct 155 mg/dL (75-193) 12/31/18 08:04 HDL Cholesterol 62 mg/dL (23-92) 12/31/18 08:04 - Physical Exam Vitals and I&O: Vital Signs Temp 97.6 F 09/17/19 06:25 Pulse 59 09/17/19 06:25 Resp 20 09/17/19 06:25 BP 116/77 09/17/19 06:25 Pulse Ox 97 09/17/19 06:25 Intake & Output 09/16/19 09/17/19 09/17/19 18:59 06:59 18:59 Intake Total 800 60 Balance 800 60 Intake: Oral 800 60 Other: # Voids 3 # Bowel Movements 1 0 Active Medications: Current Medications Acetaminophen (Tylenol) 650 mg PO Q4H PRN PRN Reason: Pain (Mild 1-3) Stop: 10/07/19 17:51 Acetaminophen (Tylenol) 650 mg PO Q4H PRN PRN Reason: Temperature above 101 Stop: 10/07/19 17:53 Alendronate Sodium (Fosamax) 70 mg PO QTHUR@0630 [facility] Stop: 11/12/19 06:29 Last Admin: 09/13/19 06:50 Dose: 70 mg Donepezil HCl (Aricept) 10 mg PO [facility] Last Admin: 09/16/19 21:20 Dose: 10 mg General: demented, thin HEENT: NC/AT, PERRLA, EOMI Neck: Supple, No JVD, No thyromegaly Lungs: CTAB Cardiovascular: RRR, Normal S1, Normal S2, with murmur Abdomen: soft, thin, non-distended, positive bowel sound Extremities: excoriation Neurological: no change Internal Medicine Assmt/Plan - Assessment Assessment: alzheimers dementa elevated chol djd osteoporosis ho old left hip fx - Plan Plan: fall precaution nutritional support cont on calcium supplemetn - resume fosamax will cont to follow dw rn add mvi check labs Nutritional Asmnt/Malnutr-PDOC - Dietary Evaluation Malnutrition Findings (Please click <Entered> for more info): Nutritional Asmnt/Malnutrition Start: 01/04/19 09: 50 Text: Status: Complete Freq: Protocol: Document 01/04/19 14:59 LCCOREY (Rec: 01/04/19 15:06 LCHENG [email or web address]) Nutritional Asmnt/Malnutrition Patient General Information Nutritional Screening Moderate Risk Diagnosis psychosis Pertinent Medical Hx/Surgical Hx dementia, DJD, osteoporosis Subjective Information pt seen lying in bed, awake and alert, stated food has beed great. Pt is not a big eater. Encourage to eat balanced meals and pt agreed with it. Per EMR, PO intake 75 -100% Current Diet Order/ Nutrition Support regular Pertinent Medications reviewed Pertinent Labs 12/31 reviewed Nutritional Hx/Data Height 1.65 m Height (Calculated Centimeters) 165.1 Current Weight (lbs) 74.843 kg Weight (Calculated Kilograms) 74.8 Weight (Calculated Grams) 76230.7 [place] Body Weight 125 Body Mass Index (BMI) 27.4 Weight Status Overweight GI Symptoms GI Symptoms None Last BM 01/04 x 2 Difficult in: None Skin Integrity/Comment: intact Current %PO Good (75-100%) Estimated Nutritional Goals BEE in Kcals: Using Current wt Calories/Kcals/Kg 23-27 Kcals Calculated 1845-1954 Protein: Using Current wt Protein g/k.8 Protein Calculated 60 Fluid: ml 1725-1998ml (1ml/kcal) Nutritional Problem No current Nutrition Prob Problem N/A Malnutrition Alert Is there a minimum of two criteria No selected? Query Text:Check all the applicable criteria. A minimum of two criteria are recommended for diagnosis of either severe or non-severe malnutrition. Malnutrition Related to Morbid Obesity Malnutrition related to morbid obesity No Intervention/Recommendation Comments 1. Continue with regular diet as ordered. 2. Monitor PO intake, wt, labs and skin integrity 3. F/U as low risk in 7 days Expected Outcomes/Goals Expected Outcomes/Goals 1. PO intake to meet at least 75% of nutritional needs. 2. Wt stability, skin to remain intact, labs to approach WNL.
--- NOTE | 2019-09-18 07:17 | Progress Notes ---
DATE: PSYCHIATRIC PROGRESS NOTE SUBJECTIVE: Chart was reviewed and the patient interviewed. Also discussed the patient's condition with the staff and reviewed records and labs. The patient is still in a depressed mood and is still confused. The patient also still has difficulty getting into placement and upset about her long hospital stay. Otherwise, the patient is compliant with taking her medications with no side effects of medications. ASSESSMENT: The patient is still depressed and is still confused and considered to be gravely disabled. TREATMENT PLAN: We will continue to monitor behavior and condition closely. Also, continue adjusting psychotropic medications and work on behavioral modification and her conservatorship, recommendations, and discharge plans. JOB# [id number]
[2019-09-18] MEDS: Multivitamin w/ Minerals Tab PO SCH (09:10)
--- NOTE | 2019-09-18 12:12 | Internal Medicine Prog Note ---
Internal Medicine Subjective - Subjective Patient seen and examined:: with staff, chart reviewed Patient is:: awake, verbal, interactive, ambulating, confused Per staff patient has:: no adverse event, no episodes of fall, eating well, tolerating meds Internal Medicine Objective - Results Recent Labs: Laboratory Last Values POC Glucose 112 MG/DL (70 - 105) H 08/11/19 21:00 Triglycerides 162 mg/dL (<150) H 12/31/18 08:04 Cholesterol 234 mg/dL (<200) H 12/31/18 08:04 LDL Cholesterol Direct 155 mg/dL (75-193) 12/31/18 08:04 HDL Cholesterol 62 mg/dL (23-92) 12/31/18 08:04 - Physical Exam Vitals and I&O: Vital Signs Temp 97.3 F 09/18/19 06:13 Pulse 61 09/18/19 06:13 Resp 20 09/18/19 06:13 BP 106/61 09/18/19 06:13 Pulse Ox 96 09/18/19 06:13 Intake & Output 09/17/19 09/18/19 09/18/19 18:59 06:59 18:59 Intake Total 1300 240 Balance 1300 240 Intake: Oral 1300 240 Other: # Voids 3 3 # Bowel Movements 0 0 Active Medications: Current Medications Acetaminophen (Tylenol) 650 mg PO Q4H PRN PRN Reason: Pain (Mild 1-3) Stop: 10/07/19 17:51 Acetaminophen (Tylenol) 650 mg PO Q4H PRN PRN Reason: Temperature above 101 Stop: 10/07/19 17:53 Alendronate Sodium (Fosamax) 70 mg PO QTHUR@0630 [facility] Stop: 11/12/19 06:29 Last Admin: 09/13/19 06:50 Dose: 70 mg Donepezil HCl (Aricept) 10 mg PO [facility] Last Admin: 09/17/19 20:47 Dose: 10 mg General: demented, thin HEENT: NC/AT, PERRLA, EOMI Neck: Supple, No JVD, No thyromegaly Lungs: CTAB Cardiovascular: RRR, Normal S1, Normal S2, with murmur Abdomen: soft, thin, non-distended, positive bowel sound Extremities: excoriation Neurological: no change Internal Medicine Assmt/Plan - Assessment Assessment: alzheimers dementa elevated chol djd osteoporosis ho old left hip fx - Plan Plan: fall precaution nutritional support cont on calcium supplemetn - resume fosamax will cont to follow dw rn add mvi check labs Nutritional Asmnt/Malnutr-PDOC - Dietary Evaluation Malnutrition Findings (Please click <Entered> for more info): Nutritional Asmnt/Malnutrition Start: 01/04/19 09: 50 Text: Status: Complete Freq: Protocol: Document 01/04/19 14:59 LCCOREY (Rec: 01/04/19 15:06 LCHENG [email or web address]) Nutritional Asmnt/Malnutrition Patient General Information Nutritional Screening Moderate Risk Diagnosis psychosis Pertinent Medical Hx/Surgical Hx dementia, DJD, osteoporosis Subjective Information pt seen lying in bed, awake and alert, stated food has beed great. Pt is not a big eater. Encourage to eat balanced meals and pt agreed with it. Per EMR, PO intake 75 -100% Current Diet Order/ Nutrition Support regular Pertinent Medications reviewed Pertinent Labs 12/31 reviewed Nutritional Hx/Data Height 1.65 m Height (Calculated Centimeters) 165.1 Current Weight (lbs) 74.843 kg Weight (Calculated Kilograms) 74.8 Weight (Calculated Grams) 04418.7 [place] Body Weight 125 Body Mass Index (BMI) 27.4 Weight Status Overweight GI Symptoms GI Symptoms None Last BM 01/04 x 2 Difficult in: None Skin Integrity/Comment: intact Current %PO Good (75-100%) Estimated Nutritional Goals BEE in Kcals: Using Current wt Calories/Kcals/Kg 23-27 Kcals Calculated 3231-2186 Protein: Using Current wt Protein g/k.8 Protein Calculated 60 Fluid: ml 1725-1998ml (1ml/kcal) Nutritional Problem No current Nutrition Prob Problem N/A Malnutrition Alert Is there a minimum of two criteria No selected? Query Text:Check all the applicable criteria. A minimum of two criteria are recommended for diagnosis of either severe or non-severe malnutrition. Malnutrition Related to Morbid Obesity Malnutrition related to morbid obesity No Intervention/Recommendation Comments 1. Continue with regular diet as ordered. 2. Monitor PO intake, wt, labs and skin integrity 3. F/U as low risk in 7 days Expected Outcomes/Goals Expected Outcomes/Goals 1. PO intake to meet at least 75% of nutritional needs. 2. Wt stability, skin to remain intact, labs to approach WNL.
--- NOTE | 2019-09-19 07:47 | Progress Notes ---
DATE: SUBJECTIVE: Chart was reviewed and the patient interviewed. Also discussed the patient's condition with the staff and reviewed records and labs. The patient is still anxious and is still in a depressed mood. The patient also is still interacting minimally with others. She has been in a confused state. Still awaiting for placement. Continue same treatment and working on discharge plans. JOB# [id number]
[2019-09-19] MEDS: Multivitamin w/ Minerals Tab PO SCH (08:42)
--- NOTE | 2019-09-19 13:48 | Internal Medicine Prog Note ---
Internal Medicine Subjective - Subjective Patient seen and examined:: with staff, chart reviewed Patient is:: awake, verbal, interactive, ambulating, confused Per staff patient has:: no adverse event, no episodes of fall, eating well, tolerating meds Internal Medicine Objective - Results Recent Labs: Laboratory Last Values POC Glucose 112 MG/DL (70 - 105) H 08/11/19 21:00 Triglycerides 162 mg/dL (<150) H 12/31/18 08:04 Cholesterol 234 mg/dL (<200) H 12/31/18 08:04 LDL Cholesterol Direct 155 mg/dL (75-193) 12/31/18 08:04 HDL Cholesterol 62 mg/dL (23-92) 12/31/18 08:04 - Physical Exam Vitals and I&O: Vital Signs Temp 97.6 F 09/19/19 06:39 Pulse 69 09/19/19 06:39 Resp 18 09/19/19 08:00 BP 116/70 09/19/19 06:39 Pulse Ox 94 09/19/19 06:39 Intake & Output 09/18/19 09/19/19 09/19/19 18:59 06:59 18:59 Intake Total 900 120 Balance 900 120 Intake: Oral 900 120 Other: # Voids 3 1 # Bowel Movements 1 0 Active Medications: Current Medications Acetaminophen (Tylenol) 650 mg PO Q4H PRN PRN Reason: Pain (Mild 1-3) Stop: 10/07/19 17:51 Acetaminophen (Tylenol) 650 mg PO Q4H PRN PRN Reason: Temperature above 101 Stop: 10/07/19 17:53 Alendronate Sodium (Fosamax) 70 mg PO QTHUR@0630 [facility] Stop: 11/12/19 06:29 Last Admin: 09/13/19 06:50 Dose: 70 mg Donepezil HCl (Aricept) 10 mg PO [facility] Last Admin: 09/18/19 20:58 Dose: 10 mg General: demented, thin HEENT: NC/AT, PERRLA, EOMI Neck: Supple, No JVD, No thyromegaly Lungs: CTAB Cardiovascular: RRR, Normal S1, Normal S2, with murmur Abdomen: soft, thin, non-distended, positive bowel sound Extremities: excoriation Neurological: no change Internal Medicine Assmt/Plan - Assessment Assessment: alzheimers dementa elevated chol djd osteoporosis ho old left hip fx - Plan Plan: fall precaution nutritional support cont on calcium supplemetn - resume fosamax will cont to follow dw rn add mvi check labs Nutritional Asmnt/Malnutr-PDOC - Dietary Evaluation Malnutrition Findings (Please click <Entered> for more info): Nutritional Asmnt/Malnutrition Start: 01/04/19 09: 50 Text: Status: Complete Freq: Protocol: Document 01/04/19 14:59 LCCOREY (Rec: 01/04/19 15:06 LCHENG [email or web address]) Nutritional Asmnt/Malnutrition Patient General Information Nutritional Screening Moderate Risk Diagnosis psychosis Pertinent Medical Hx/Surgical Hx dementia, DJD, osteoporosis Subjective Information pt seen lying in bed, awake and alert, stated food has beed great. Pt is not a big eater. Encourage to eat balanced meals and pt agreed with it. Per EMR, PO intake 75 -100% Current Diet Order/ Nutrition Support regular Pertinent Medications reviewed Pertinent Labs 12/31 reviewed Nutritional Hx/Data Height 1.65 m Height (Calculated Centimeters) 165.1 Current Weight (lbs) 74.843 kg Weight (Calculated Kilograms) 74.8 Weight (Calculated Grams) 31696.7 [place] Body Weight 125 Body Mass Index (BMI) 27.4 Weight Status Overweight GI Symptoms GI Symptoms None Last BM 01/04 x 2 Difficult in: None Skin Integrity/Comment: intact Current %PO Good (75-100%) Estimated Nutritional Goals BEE in Kcals: Using Current wt Calories/Kcals/Kg 23-27 Kcals Calculated 0600-9144 Protein: Using Current wt Protein g/k.8 Protein Calculated 60 Fluid: ml 1725-1998ml (1ml/kcal) Nutritional Problem No current Nutrition Prob Problem N/A Malnutrition Alert Is there a minimum of two criteria No selected? Query Text:Check all the applicable criteria. A minimum of two criteria are recommended for diagnosis of either severe or non-severe malnutrition. Malnutrition Related to Morbid Obesity Malnutrition related to morbid obesity No Intervention/Recommendation Comments 1. Continue with regular diet as ordered. 2. Monitor PO intake, wt, labs and skin integrity 3. F/U as low risk in 7 days Expected Outcomes/Goals Expected Outcomes/Goals 1. PO intake to meet at least 75% of nutritional needs. 2. Wt stability, skin to remain intact, labs to approach WNL.
[2019-09-20] MEDS: Multivitamin w/ Minerals Tab PO SCH (08:25)
--- NOTE | 2019-09-20 12:49 | Internal Medicine Prog Note ---
Internal Medicine Subjective - Subjective Patient seen and examined:: with staff, chart reviewed Patient is:: awake, verbal, interactive, ambulating, confused Per staff patient has:: no adverse event, no episodes of fall, eating well, tolerating meds Internal Medicine Objective - Results Recent Labs: Laboratory Last Values POC Glucose 112 MG/DL (70 - 105) H 08/11/19 21:00 Triglycerides 162 mg/dL (<150) H 12/31/18 08:04 Cholesterol 234 mg/dL (<200) H 12/31/18 08:04 LDL Cholesterol Direct 155 mg/dL (75-193) 12/31/18 08:04 HDL Cholesterol 62 mg/dL (23-92) 12/31/18 08:04 - Physical Exam Vitals and I&O: Vital Signs Temp 97.6 F 09/20/19 07:00 Pulse 73 09/20/19 07:00 Resp 17 09/20/19 08:00 BP 113/64 09/20/19 07:00 Pulse Ox 95 09/20/19 07:00 Intake & Output 09/19/19 09/20/19 09/20/19 18:59 06:59 18:59 Intake Total 1200 120 120 Balance 1200 120 120 Intake: Oral 960 120 120 Other 240 Other: # Voids 3 2 2 # Bowel Movements 0 0 1 Active Medications: Current Medications Acetaminophen (Tylenol) 650 mg PO Q4H PRN PRN Reason: Pain (Mild 1-3) Stop: 10/07/19 17:51 Acetaminophen (Tylenol) 650 mg PO Q4H PRN PRN Reason: Temperature above 101 Stop: 10/07/19 17:53 Alendronate Sodium (Fosamax) 70 mg PO QTHUR@0630 [facility] Stop: 11/12/19 06:29 Last Admin: 09/20/19 06:32 Dose: 70 mg Donepezil HCl (Aricept) 10 mg PO HS [facility] Last Admin: 09/19/19 20:53 Dose: 10 mg General: demented, thin HEENT: NC/AT, PERRLA, EOMI Neck: Supple, No JVD, No thyromegaly Lungs: CTAB Cardiovascular: RRR, Normal S1, Normal S2, with murmur Abdomen: soft, thin, non-distended, positive bowel sound Extremities: excoriation Neurological: no change Internal Medicine Assmt/Plan - Assessment Assessment: alzheimers dementa elevated chol djd osteoporosis ho old left hip fx - Plan Plan: fall precaution nutritional support cont on calcium supplemetn - resume fosamax will cont to follow dw rn add mvi check labs Nutritional Asmnt/Malnutr-PDOC - Dietary Evaluation Malnutrition Findings (Please click <Entered> for more info): Nutritional Asmnt/Malnutrition Start: 01/04/19 09: 50 Text: Status: Complete Freq: Protocol: Document 01/04/19 14:59 LCHENG (Rec: 01/04/19 15:06 LCHENG [email or web address]) Nutritional Asmnt/Malnutrition Patient General Information Nutritional Screening Moderate Risk Diagnosis psychosis Pertinent Medical Hx/Surgical Hx dementia, DJD, osteoporosis Subjective Information pt seen lying in bed, awake and alert, stated food has beed great. Pt is not a big eater. Encourage to eat balanced meals and pt agreed with it. Per EMR, PO intake 75 -100% Current Diet Order/ Nutrition Support regular Pertinent Medications reviewed Pertinent Labs 12/31 reviewed Nutritional Hx/Data Height 1.65 m Height (Calculated Centimeters) 165.1 Current Weight (lbs) 74.843 kg Weight (Calculated Kilograms) 74.8 Weight (Calculated Grams) 02998.7 [place] Body Weight 125 Body Mass Index (BMI) 27.4 Weight Status Overweight GI Symptoms GI Symptoms None Last BM 01/04 x 2 Difficult in: None Skin Integrity/Comment: intact Current %PO Good (75-100%) Estimated Nutritional Goals BEE in Kcals: Using Current wt Calories/Kcals/Kg 23-27 Kcals Calculated 6419-3760 Protein: Using Current wt Protein g/k.8 Protein Calculated 60 Fluid: ml 1725-1998ml (1ml/kcal) Nutritional Problem No current Nutrition Prob Problem N/A Malnutrition Alert Is there a minimum of two criteria No selected? Query Text:Check all the applicable criteria. A minimum of two criteria are recommended for diagnosis of either severe or non-severe malnutrition. Malnutrition Related to Morbid Obesity Malnutrition related to morbid obesity No Intervention/Recommendation Comments 1. Continue with regular diet as ordered. 2. Monitor PO intake, wt, labs and skin integrity 3. F/U as low risk in 7 days Expected Outcomes/Goals Expected Outcomes/Goals 1. PO intake to meet at least 75% of nutritional needs. 2. Wt stability, skin to remain intact, labs to approach WNL.
--- NOTE | 2019-09-20 22:42 | Progress Notes ---
DATE: SUBJECTIVE: Chart was reviewed and the patient interviewed. Also discussed the patient's condition with the staff and reviewed records and labs. The patient is still isolative and withdrawn. The patient also is still pleasantly confused and wandering around at times. She also is still guarded. Otherwise, the patient continued to comply with taking her medications. She also still unable to provide any safe plan for self-care. ASSESSMENT: The patient is still considered to be gravely disabled and waiting for placement. TREATMENT PLAN: Continue current treatment and medications and continue monitoring her behavior and her condition closely. Also, continue to work on her medications and follow up closely. JOB# [id number]
--- NOTE | 2019-09-21 08:24 | Progress Notes ---
DATE: SUBJECTIVE: Chart was reviewed and the patient interviewed. Also discussed the patient's condition with the staff and reviewed records and labs. The patient is still pleasantly confused. The patient also is still pacing around the unit in a confused state, but no behavioral issues. She is still depressed because of her long stay. Otherwise, the patient is compliant with taking her medications. ASSESSMENT: The patient is still considered to be gravely disabled and waiting for placement. TREATMENT PLAN: We will continue monitoring behavior and condition and continue current medications and waiting for placement. JOB# [id number]
[2019-09-21] MEDS: Multivitamin w/ Minerals Tab PO SCH (08:40)
--- NOTE | 2019-09-21 13:00 | Internal Medicine Prog Note ---
Internal Medicine Subjective - Subjective Patient seen and examined:: with staff, chart reviewed Patient is:: awake, verbal, interactive, ambulating, confused Per staff patient has:: no adverse event, no episodes of fall, eating well, tolerating meds Internal Medicine Objective - Results Recent Labs: Laboratory Last Values POC Glucose 112 MG/DL (70 - 105) H 08/11/19 21:00 Triglycerides 162 mg/dL (<150) H 12/31/18 08:04 Cholesterol 234 mg/dL (<200) H 12/31/18 08:04 LDL Cholesterol Direct 155 mg/dL (75-193) 12/31/18 08:04 HDL Cholesterol 62 mg/dL (23-92) 12/31/18 08:04 - Physical Exam Vitals and I&O: Vital Signs Temp 97.2 F 09/21/19 05:56 Pulse 50 09/21/19 05:56 Resp 17 09/21/19 08:00 BP 112/64 09/21/19 05:56 Pulse Ox 98 09/21/19 05:56 Intake & Output 09/20/19 09/21/19 09/21/19 18:59 06:59 18:59 Intake Total 1120 240 Balance 1120 240 Intake: Oral 1120 240 Other: # Voids 4 1 # Bowel Movements 1 Active Medications: Current Medications Acetaminophen (Tylenol) 650 mg PO Q4H PRN PRN Reason: Pain (Mild 1-3) Stop: 10/07/19 17:51 Acetaminophen (Tylenol) 650 mg PO Q4H PRN PRN Reason: Temperature above 101 Stop: 10/07/19 17:53 Alendronate Sodium (Fosamax) 70 mg PO QTHUR@0630 [facility] Stop: 11/12/19 06:29 Last Admin: 09/20/19 06:32 Dose: 70 mg Donepezil HCl (Aricept) 10 mg PO [facility] Last Admin: 09/20/19 20:37 Dose: 10 mg General: demented, thin HEENT: NC/AT, PERRLA, EOMI Neck: Supple, No JVD, No thyromegaly Lungs: CTAB Cardiovascular: RRR, Normal S1, Normal S2, with murmur Abdomen: soft, thin, non-distended, positive bowel sound Extremities: excoriation Neurological: no change Internal Medicine Assmt/Plan - Assessment Assessment: alzheimers dementa elevated chol djd osteoporosis ho old left hip fx - Plan Plan: fall precaution nutritional support cont on calcium supplemetn - resume fosamax will cont to follow dw rn add mvi Nutritional Asmnt/Malnutr-PDOC - Dietary Evaluation Malnutrition Findings (Please click <Entered> for more info): Nutritional Asmnt/Malnutrition Start: 01/04/19 09: 50 Text: Status: Complete Freq: Protocol: Document 01/04/19 14:59 LCCOREY (Rec: 01/04/19 15:06 LCHENG [email or web address]) Nutritional Asmnt/Malnutrition Patient General Information Nutritional Screening Moderate Risk Diagnosis psychosis Pertinent Medical Hx/Surgical Hx dementia, DJD, osteoporosis Subjective Information pt seen lying in bed, awake and alert, stated food has beed great. Pt is not a big eater. Encourage to eat balanced meals and pt agreed with it. Per EMR, PO intake 75 -100% Current Diet Order/ Nutrition Support regular Pertinent Medications reviewed Pertinent Labs 12/31 reviewed Nutritional Hx/Data Height 1.65 m Height (Calculated Centimeters) 165.1 Current Weight (lbs) 74.843 kg Weight (Calculated Kilograms) 74.8 Weight (Calculated Grams) 21010.7 [place] Body Weight 125 Body Mass Index (BMI) 27.4 Weight Status Overweight GI Symptoms GI Symptoms None Last BM 01/04 x 2 Difficult in: None Skin Integrity/Comment: intact Current %PO Good (75-100%) Estimated Nutritional Goals BEE in Kcals: Using Current wt Calories/Kcals/Kg 23-27 Kcals Calculated 0598-9724 Protein: Using Current wt Protein g/k.8 Protein Calculated 60 Fluid: ml 1725-1998ml (1ml/kcal) Nutritional Problem No current Nutrition Prob Problem N/A Malnutrition Alert Is there a minimum of two criteria No selected? Query Text:Check all the applicable criteria. A minimum of two criteria are recommended for diagnosis of either severe or non-severe malnutrition. Malnutrition Related to Morbid Obesity Malnutrition related to morbid obesity No Intervention/Recommendation Comments 1. Continue with regular diet as ordered. 2. Monitor PO intake, wt, labs and skin integrity 3. F/U as low risk in 7 days Expected Outcomes/Goals Expected Outcomes/Goals 1. PO intake to meet at least 75% of nutritional needs. 2. Wt stability, skin to remain intact, labs to approach WNL.
[2019-09-22] MEDS: Multivitamin w/ Minerals Tab PO SCH (08:40)
--- NOTE | 2019-09-22 13:41 | Internal Medicine Prog Note ---
Internal Medicine Subjective - Subjective Patient seen and examined:: with staff, chart reviewed Patient is:: awake, verbal, interactive, ambulating, confused Per staff patient has:: no adverse event, no episodes of fall, eating well, tolerating meds Internal Medicine Objective - Results Recent Labs: Laboratory Last Values POC Glucose 112 MG/DL (70 - 105) H 08/11/19 21:00 Triglycerides 162 mg/dL (<150) H 12/31/18 08:04 Cholesterol 234 mg/dL (<200) H 12/31/18 08:04 LDL Cholesterol Direct 155 mg/dL (75-193) 12/31/18 08:04 HDL Cholesterol 62 mg/dL (23-92) 12/31/18 08:04 - Physical Exam Vitals and I&O: Vital Signs Temp 97.6 F 09/22/19 06:16 Pulse 72 09/22/19 06:16 Resp 16 09/22/19 07:49 BP 107/74 09/22/19 06:16 Pulse Ox 97 09/22/19 06:16 Intake & Output 09/21/19 09/22/19 09/22/19 18:59 06:59 18:59 Intake Total 950 120 Balance 950 120 Intake: Oral 950 120 Other: # Voids 4 2 # Bowel Movements 1 0 Active Medications: Current Medications Acetaminophen (Tylenol) 650 mg PO Q4H PRN PRN Reason: Pain (Mild 1-3) Stop: 10/07/19 17:51 Acetaminophen (Tylenol) 650 mg PO Q4H PRN PRN Reason: Temperature above 101 Stop: 10/07/19 17:53 Alendronate Sodium (Fosamax) 70 mg PO QTHUR@0630 [facility] Stop: 11/12/19 06:29 Last Admin: 09/20/19 06:32 Dose: 70 mg Donepezil HCl (Aricept) 10 mg PO [facility] Last Admin: 09/21/19 20:55 Dose: 10 mg General: demented, thin HEENT: NC/AT, PERRLA, EOMI Neck: Supple, No JVD, No thyromegaly Lungs: CTAB Cardiovascular: RRR, Normal S1, Normal S2, with murmur Abdomen: soft, thin, non-distended, positive bowel sound Extremities: excoriation Neurological: no change Internal Medicine Assmt/Plan - Assessment Assessment: alzheimers dementa elevated chol djd osteoporosis ho old left hip fx - Plan Plan: fall precaution nutritional support cont on calcium supplemetn - resume fosamax will cont to follow dw rn add mvi Nutritional Asmnt/Malnutr-PDOC - Dietary Evaluation Malnutrition Findings (Please click <Entered> for more info): Nutritional Asmnt/Malnutrition Start: 01/04/19 09: 50 Text: Status: Complete Freq: Protocol: Document 01/04/19 14:59 LCHENG (Rec: 01/04/19 15:06 LCHENG [email or web address]) Nutritional Asmnt/Malnutrition Patient General Information Nutritional Screening Moderate Risk Diagnosis psychosis Pertinent Medical Hx/Surgical Hx dementia, DJD, osteoporosis Subjective Information pt seen lying in bed, awake and alert, stated food has beed great. Pt is not a big eater. Encourage to eat balanced meals and pt agreed with it. Per EMR, PO intake 75 -100% Current Diet Order/ Nutrition Support regular Pertinent Medications reviewed Pertinent Labs 12/31 reviewed Nutritional Hx/Data Height 1.65 m Height (Calculated Centimeters) 165.1 Current Weight (lbs) 74.843 kg Weight (Calculated Kilograms) 74.8 Weight (Calculated Grams) 81700.7 [place] Body Weight 125 Body Mass Index (BMI) 27.4 Weight Status Overweight GI Symptoms GI Symptoms None Last BM 01/04 x 2 Difficult in: None Skin Integrity/Comment: intact Current %PO Good (75-100%) Estimated Nutritional Goals BEE in Kcals: Using Current wt Calories/Kcals/Kg 23-27 Kcals Calculated 4640-9859 Protein: Using Current wt Protein g/k.8 Protein Calculated 60 Fluid: ml 1725-1998ml (1ml/kcal) Nutritional Problem No current Nutrition Prob Problem N/A Malnutrition Alert Is there a minimum of two criteria No selected? Query Text:Check all the applicable criteria. A minimum of two criteria are recommended for diagnosis of either severe or non-severe malnutrition. Malnutrition Related to Morbid Obesity Malnutrition related to morbid obesity No Intervention/Recommendation Comments 1. Continue with regular diet as ordered. 2. Monitor PO intake, wt, labs and skin integrity 3. F/U as low risk in 7 days Expected Outcomes/Goals Expected Outcomes/Goals 1. PO intake to meet at least 75% of nutritional needs. 2. Wt stability, skin to remain intact, labs to approach WNL.
--- NOTE | 2019-09-22 20:49 | Progress Notes ---
DATE: 09/22/2019 SUBJECTIVE: Chart was reviewed and the patient interviewed. Also discussed the patient's condition with the staff and reviewed records and labs. The patient is getting out of her room more and she is trying to interact and socialize more. The patient is still confused and still needs redirections at times. On the other hand, personal hygiene is fair. ASSESSMENT: The patient is still considered to be gravely disabled and waiting for placement. TREATMENT PLAN: Continue current treatment and medications and continue to follow up closely. JOB# [id number]
[2019-09-23] MEDS: Multivitamin w/ Minerals Tab PO SCH (09:31)
--- NOTE | 2019-09-23 12:01 | Internal Medicine Prog Note ---
Internal Medicine Subjective - Subjective Patient seen and examined:: with staff, chart reviewed Patient is:: awake, verbal, interactive, ambulating, confused Per staff patient has:: no adverse event, no episodes of fall, eating well, tolerating meds Internal Medicine Objective - Results Recent Labs: Laboratory Last Values POC Glucose 112 MG/DL (70 - 105) H 08/11/19 21:00 Triglycerides 162 mg/dL (<150) H 12/31/18 08:04 Cholesterol 234 mg/dL (<200) H 12/31/18 08:04 LDL Cholesterol Direct 155 mg/dL (75-193) 12/31/18 08:04 HDL Cholesterol 62 mg/dL (23-92) 12/31/18 08:04 - Physical Exam Vitals and I&O: Vital Signs Temp 97.8 F 09/23/19 06:15 Pulse 70 09/23/19 06:15 Resp 19 09/23/19 06:15 BP 109/71 09/23/19 06:15 Pulse Ox 98 09/23/19 06:15 Intake & Output 09/22/19 09/23/19 09/23/19 18:59 06:59 18:59 Intake Total 240 Balance 240 Intake: Oral 240 Other: # Voids 2 1 # Bowel Movements 1 Active Medications: Current Medications Acetaminophen (Tylenol) 650 mg PO Q4H PRN PRN Reason: Pain (Mild 1-3) Stop: 10/07/19 17:51 Acetaminophen (Tylenol) 650 mg PO Q4H PRN PRN Reason: Temperature above 101 Stop: 10/07/19 17:53 Alendronate Sodium (Fosamax) 70 mg PO QTHUR@0630 [facility] Stop: 11/12/19 06:29 Last Admin: 09/20/19 06:32 Dose: 70 mg Donepezil HCl (Aricept) 10 mg PO [facility] Last Admin: 09/22/19 21:13 Dose: 10 mg General: demented, thin HEENT: NC/AT, PERRLA, EOMI Neck: Supple, No JVD, No thyromegaly Lungs: CTAB Cardiovascular: RRR, Normal S1, Normal S2, with murmur Abdomen: soft, thin, non-distended, positive bowel sound Extremities: excoriation Neurological: no change Internal Medicine Assmt/Plan - Assessment Assessment: alzheimers dementa elevated chol djd osteoporosis ho old left hip fx - Plan Plan: fall precaution nutritional support cont on calcium supplemetn - resume fosamax will cont to follow dw rn add mvi Nutritional Asmnt/Malnutr-PDOC - Dietary Evaluation Malnutrition Findings (Please click <Entered> for more info): Nutritional Asmnt/Malnutrition Start: 01/04/19 09: 50 Text: Status: Complete Freq: Protocol: Document 01/04/19 14:59 LCHENG (Rec: 01/04/19 15:06 LCHENG [email or web address]) Nutritional Asmnt/Malnutrition Patient General Information Nutritional Screening Moderate Risk Diagnosis psychosis Pertinent Medical Hx/Surgical Hx dementia, DJD, osteoporosis Subjective Information pt seen lying in bed, awake and alert, stated food has beed great. Pt is not a big eater. Encourage to eat balanced meals and pt agreed with it. Per EMR, PO intake 75 -100% Current Diet Order/ Nutrition Support regular Pertinent Medications reviewed Pertinent Labs 12/31 reviewed Nutritional Hx/Data Height 1.65 m Height (Calculated Centimeters) 165.1 Current Weight (lbs) 74.843 kg Weight (Calculated Kilograms) 74.8 Weight (Calculated Grams) 57590.7 [place] Body Weight 125 Body Mass Index (BMI) 27.4 Weight Status Overweight GI Symptoms GI Symptoms None Last BM 01/04 x 2 Difficult in: None Skin Integrity/Comment: intact Current %PO Good (75-100%) Estimated Nutritional Goals BEE in Kcals: Using Current wt Calories/Kcals/Kg 23-27 Kcals Calculated 8171-3466 Protein: Using Current wt Protein g/k.8 Protein Calculated 60 Fluid: ml 1725-1998ml (1ml/kcal) Nutritional Problem No current Nutrition Prob Problem N/A Malnutrition Alert Is there a minimum of two criteria No selected? Query Text:Check all the applicable criteria. A minimum of two criteria are recommended for diagnosis of either severe or non-severe malnutrition. Malnutrition Related to Morbid Obesity Malnutrition related to morbid obesity No Intervention/Recommendation Comments 1. Continue with regular diet as ordered. 2. Monitor PO intake, wt, labs and skin integrity 3. F/U as low risk in 7 days Expected Outcomes/Goals Expected Outcomes/Goals 1. PO intake to meet at least 75% of nutritional needs. 2. Wt stability, skin to remain intact, labs to approach WNL.
--- NOTE | 2019-09-23 18:15 | Progress Notes ---
DATE: 09/23/2019 SUBJECTIVE: Chart was reviewed and the patient interviewed. Also discussed the patient's condition with the staff and reviewed records and labs. The patient is still pleasantly confused and she is still going around the unit in a confused state, but her affect is brighter. The patient also is still interacting more. She also still needs redirections. She is also compliant with treatment recommendations and was taking current medications. ASSESSMENT: The patient is still confused and considered to be gravely disabled. TREATMENT PLAN: Continue to monitor behavior and her condition. Also, continue to work on her discharge plans and placement issue. JOB# [id number]
[2019-09-24] MEDS: Multivitamin w/ Minerals Tab PO SCH (08:06)
--- NOTE | 2019-09-24 12:45 | Internal Medicine Prog Note ---
Internal Medicine Subjective - Subjective Patient seen and examined:: with staff, chart reviewed Patient is:: awake, verbal, interactive, ambulating, confused Per staff patient has:: no adverse event, no episodes of fall, eating well, tolerating meds Internal Medicine Objective - Results Recent Labs: Laboratory Last Values POC Glucose 112 MG/DL (70 - 105) H 08/11/19 21:00 Triglycerides 162 mg/dL (<150) H 12/31/18 08:04 Cholesterol 234 mg/dL (<200) H 12/31/18 08:04 LDL Cholesterol Direct 155 mg/dL (75-193) 12/31/18 08:04 HDL Cholesterol 62 mg/dL (23-92) 12/31/18 08:04 - Physical Exam Vitals and I&O: Vital Signs Temp 97.6 F 09/24/19 05:44 Pulse 72 09/24/19 05:44 Resp 18 09/24/19 08:00 BP 112/54 09/24/19 05:44 Pulse Ox 98 09/24/19 05:44 Intake & Output 09/23/19 09/24/19 09/24/19 18:59 06:59 18:59 Intake Total 720 60 Balance 720 60 Intake: Oral 720 60 Other: # Voids 4 1 # Bowel Movements 2 0 Active Medications: Current Medications Acetaminophen (Tylenol) 650 mg PO Q4H PRN PRN Reason: Pain (Mild 1-3) Stop: 10/07/19 17:51 Acetaminophen (Tylenol) 650 mg PO Q4H PRN PRN Reason: Temperature above 101 Stop: 10/07/19 17:53 Alendronate Sodium (Fosamax) 70 mg PO QTHUR@0630 [facility] Stop: 11/12/19 06:29 Last Admin: 09/20/19 06:32 Dose: 70 mg Donepezil HCl (Aricept) 10 mg PO [facility] Last Admin: 09/23/19 21:36 Dose: 10 mg General: demented, thin HEENT: NC/AT, PERRLA, EOMI Neck: Supple, No JVD, No thyromegaly Lungs: CTAB Cardiovascular: RRR, Normal S1, Normal S2, with murmur Abdomen: soft, thin, non-distended, positive bowel sound Extremities: excoriation Neurological: no change Internal Medicine Assmt/Plan - Assessment Assessment: alzheimers dementa elevated chol djd osteoporosis ho old left hip fx - Plan Plan: fall precaution nutritional support cont on calcium supplemetn - resume fosamax will cont to follow dw rn add mvi Nutritional Asmnt/Malnutr-PDOC - Dietary Evaluation Malnutrition Findings (Please click <Entered> for more info): Nutritional Asmnt/Malnutrition Start: 01/04/19 09: 50 Text: Status: Complete Freq: Protocol: Document 01/04/19 14:59 LCHENG (Rec: 01/04/19 15:06 LCHENG [email or web address]) Nutritional Asmnt/Malnutrition Patient General Information Nutritional Screening Moderate Risk Diagnosis psychosis Pertinent Medical Hx/Surgical Hx dementia, DJD, osteoporosis Subjective Information pt seen lying in bed, awake and alert, stated food has beed great. Pt is not a big eater. Encourage to eat balanced meals and pt agreed with it. Per EMR, PO intake 75 -100% Current Diet Order/ Nutrition Support regular Pertinent Medications reviewed Pertinent Labs 12/31 reviewed Nutritional Hx/Data Height 1.65 m Height (Calculated Centimeters) 165.1 Current Weight (lbs) 74.843 kg Weight (Calculated Kilograms) 74.8 Weight (Calculated Grams) 19643.7 [place] Body Weight 125 Body Mass Index (BMI) 27.4 Weight Status Overweight GI Symptoms GI Symptoms None Last BM 01/04 x 2 Difficult in: None Skin Integrity/Comment: intact Current %PO Good (75-100%) Estimated Nutritional Goals BEE in Kcals: Using Current wt Calories/Kcals/Kg 23-27 Kcals Calculated 5326-2030 Protein: Using Current wt Protein g/k.8 Protein Calculated 60 Fluid: ml 1725-1998ml (1ml/kcal) Nutritional Problem No current Nutrition Prob Problem N/A Malnutrition Alert Is there a minimum of two criteria No selected? Query Text:Check all the applicable criteria. A minimum of two criteria are recommended for diagnosis of either severe or non-severe malnutrition. Malnutrition Related to Morbid Obesity Malnutrition related to morbid obesity No Intervention/Recommendation Comments 1. Continue with regular diet as ordered. 2. Monitor PO intake, wt, labs and skin integrity 3. F/U as low risk in 7 days Expected Outcomes/Goals Expected Outcomes/Goals 1. PO intake to meet at least 75% of nutritional needs. 2. Wt stability, skin to remain intact, labs to approach WNL.
--- NOTE | 2019-09-25 05:41 | Progress Notes ---
DATE: 09/24/2019 SUBJECTIVE: Chart was reviewed and the patient was interviewed. Also discussed the patient's condition with the staff and reviewed records and labs. The patient is still anxious and is still pleasantly confused. She is still wandering around the unit, but no behavioral issues. The patient also is interacting with others, but in a confused state. Otherwise, the patient continues to comply with taking her medications with no side effects. ASSESSMENT: The patient is still considered to be gravely disabled. TREATMENT PLAN: Continue current treatment and medications. Also, continue to work on her discharge plan and placement issue. JOB# [id number]
[2019-09-25] MEDS: Multivitamin w/ Minerals Tab PO SCH (08:41)
--- NOTE | 2019-09-25 11:00 | Progress Notes ---
DATE: SUBJECTIVE: Chart was reviewed and the patient interviewed. Also discussed the patient's condition with the staff and reviewed records and labs. The patient is still wandering around the unit in a confused state, but the patient is pleasant and is having no behavioral issues. The patient still needs redirections. Fair appetite and fair hygiene. No side effects of medications. ASSESSMENT: The patient is still considered to be gravely disabled and waiting for placement. TREATMENT PLAN: Continue to monitor behavior and the condition closely. Also, continue working on discharge plans and placement issue. JOB# [id number]
--- NOTE | 2019-09-25 12:37 | Internal Medicine Prog Note ---
Internal Medicine Subjective - Subjective Patient seen and examined:: with staff, chart reviewed Patient is:: awake, verbal, interactive, ambulating, confused Per staff patient has:: no adverse event, no episodes of fall, eating well, tolerating meds Internal Medicine Objective - Results Recent Labs: Laboratory Last Values POC Glucose 112 MG/DL (70 - 105) H 08/11/19 21:00 Triglycerides 162 mg/dL (<150) H 12/31/18 08:04 Cholesterol 234 mg/dL (<200) H 12/31/18 08:04 LDL Cholesterol Direct 155 mg/dL (75-193) 12/31/18 08:04 HDL Cholesterol 62 mg/dL (23-92) 12/31/18 08:04 - Physical Exam Vitals and I&O: Vital Signs Temp 96.8 F 09/25/19 07:17 Pulse 64 09/25/19 07:17 Resp 18 09/25/19 07:37 BP 117/71 09/25/19 07:17 Pulse Ox 95 09/25/19 07:17 Intake & Output 09/24/19 09/25/19 09/25/19 18:59 06:59 18:59 Intake Total 1000 240 Balance 1000 240 Intake: Oral 1000 240 Other: # Voids 4 1 # Bowel Movements 1 Active Medications: Current Medications Acetaminophen (Tylenol) 650 mg PO Q4H PRN PRN Reason: Pain (Mild 1-3) Stop: 10/07/19 17:51 Acetaminophen (Tylenol) 650 mg PO Q4H PRN PRN Reason: Temperature above 101 Stop: 10/07/19 17:53 Alendronate Sodium (Fosamax) 70 mg PO QTHUR@0630 [facility] Stop: 11/12/19 06:29 Last Admin: 09/20/19 06:32 Dose: 70 mg Donepezil HCl (Aricept) 10 mg PO [facility] Last Admin: 09/24/19 21:20 Dose: 10 mg General: demented, thin HEENT: NC/AT, PERRLA, EOMI Neck: Supple, No JVD, No thyromegaly Lungs: CTAB Cardiovascular: RRR, Normal S1, Normal S2, with murmur Abdomen: soft, thin, non-distended, positive bowel sound Extremities: excoriation Neurological: no change Internal Medicine Assmt/Plan - Assessment Assessment: alzheimers dementa elevated chol djd osteoporosis ho old left hip fx - Plan Plan: fall precaution nutritional support cont on calcium supplemetn - resume fosamax will cont to follow dw rn add mvi Nutritional Asmnt/Malnutr-PDOC - Dietary Evaluation Malnutrition Findings (Please click <Entered> for more info): Nutritional Asmnt/Malnutrition Start: 01/04/19 09: 50 Text: Status: Complete Freq: Protocol: Document 01/04/19 14:59 LCHENG (Rec: 01/04/19 15:06 LCHENG [email or web address]) Nutritional Asmnt/Malnutrition Patient General Information Nutritional Screening Moderate Risk Diagnosis psychosis Pertinent Medical Hx/Surgical Hx dementia, DJD, osteoporosis Subjective Information pt seen lying in bed, awake and alert, stated food has beed great. Pt is not a big eater. Encourage to eat balanced meals and pt agreed with it. Per EMR, PO intake 75 -100% Current Diet Order/ Nutrition Support regular Pertinent Medications reviewed Pertinent Labs 12/31 reviewed Nutritional Hx/Data Height 1.65 m Height (Calculated Centimeters) 165.1 Current Weight (lbs) 74.843 kg Weight (Calculated Kilograms) 74.8 Weight (Calculated Grams) 96166.7 [place] Body Weight 125 Body Mass Index (BMI) 27.4 Weight Status Overweight GI Symptoms GI Symptoms None Last BM 01/04 x 2 Difficult in: None Skin Integrity/Comment: intact Current %PO Good (75-100%) Estimated Nutritional Goals BEE in Kcals: Using Current wt Calories/Kcals/Kg 23-27 Kcals Calculated 2999-1936 Protein: Using Current wt Protein g/k.8 Protein Calculated 60 Fluid: ml 1725-1998ml (1ml/kcal) Nutritional Problem No current Nutrition Prob Problem N/A Malnutrition Alert Is there a minimum of two criteria No selected? Query Text:Check all the applicable criteria. A minimum of two criteria are recommended for diagnosis of either severe or non-severe malnutrition. Malnutrition Related to Morbid Obesity Malnutrition related to morbid obesity No Intervention/Recommendation Comments 1. Continue with regular diet as ordered. 2. Monitor PO intake, wt, labs and skin integrity 3. F/U as low risk in 7 days Expected Outcomes/Goals Expected Outcomes/Goals 1. PO intake to meet at least 75% of nutritional needs. 2. Wt stability, skin to remain intact, labs to approach WNL.
[2019-09-26] MEDS: Multivitamin w/ Minerals Tab PO SCH (08:32)
--- NOTE | 2019-09-26 13:45 | Internal Medicine Prog Note ---
Internal Medicine Subjective - Subjective Patient seen and examined:: with staff, chart reviewed Patient is:: awake, verbal, interactive, ambulating, confused Per staff patient has:: no adverse event, no episodes of fall, eating well, tolerating meds Internal Medicine Objective - Results Recent Labs: Laboratory Last Values POC Glucose 112 MG/DL (70 - 105) H 08/11/19 21:00 Triglycerides 162 mg/dL (<150) H 12/31/18 08:04 Cholesterol 234 mg/dL (<200) H 12/31/18 08:04 LDL Cholesterol Direct 155 mg/dL (75-193) 12/31/18 08:04 HDL Cholesterol 62 mg/dL (23-92) 12/31/18 08:04 - Physical Exam Vitals and I&O: Vital Signs Temp 97.7 F 09/26/19 06:12 Pulse 66 09/26/19 06:12 Resp 18 09/26/19 07:19 BP 116/64 09/26/19 06:12 Pulse Ox 98 09/26/19 06:12 Intake & Output 09/25/19 09/26/19 09/26/19 18:59 06:59 18:59 Intake Total 950 360 Balance 950 360 Intake: Oral 950 360 Other: # Voids 4 2 # Bowel Movements 1 0 Active Medications: Current Medications Acetaminophen (Tylenol) 650 mg PO Q4H PRN PRN Reason: Pain (Mild 1-3) Stop: 10/07/19 17:51 Acetaminophen (Tylenol) 650 mg PO Q4H PRN PRN Reason: Temperature above 101 Stop: 10/07/19 17:53 Alendronate Sodium (Fosamax) 70 mg PO QTHUR@0630 [facility] Stop: 11/12/19 06:29 Last Admin: 09/20/19 06:32 Dose: 70 mg Donepezil HCl (Aricept) [address] [facility] Last Admin: 09/25/19 20:19 Dose: 10 mg General: demented, thin HEENT: NC/AT, PERRLA, EOMI Neck: Supple, No JVD, No thyromegaly Lungs: CTAB Cardiovascular: RRR, Normal S1, Normal S2, with murmur Abdomen: soft, thin, non-distended, positive bowel sound Extremities: excoriation Neurological: no change Internal Medicine Assmt/Plan - Assessment Assessment: alzheimers dementa elevated chol djd osteoporosis ho old left hip fx - Plan Plan: fall precaution nutritional support cont on calcium supplemetn - resume fosamax will cont to follow dw rn add mvi Nutritional Asmnt/Malnutr-PDOC - Dietary Evaluation Malnutrition Findings (Please click <Entered> for more info): Nutritional Asmnt/Malnutrition Start: 01/04/19 09: 50 Text: Status: Complete Freq: Protocol: Document 01/04/19 14:59 LCHENG (Rec: 01/04/19 15:06 LCHENG [email or web address]) Nutritional Asmnt/Malnutrition Patient General Information Nutritional Screening Moderate Risk Diagnosis psychosis Pertinent Medical Hx/Surgical Hx dementia, DJD, osteoporosis Subjective Information pt seen lying in bed, awake and alert, stated food has beed great. Pt is not a big eater. Encourage to eat balanced meals and pt agreed with it. Per EMR, PO intake 75 -100% Current Diet Order/ Nutrition Support regular Pertinent Medications reviewed Pertinent Labs 12/31 reviewed Nutritional Hx/Data Height 1.65 m Height (Calculated Centimeters) 165.1 Current Weight (lbs) 74.843 kg Weight (Calculated Kilograms) 74.8 Weight (Calculated Grams) 96474.7 [place] Body Weight 125 Body Mass Index (BMI) 27.4 Weight Status Overweight GI Symptoms GI Symptoms None Last BM 01/04 x 2 Difficult in: None Skin Integrity/Comment: intact Current %PO Good (75-100%) Estimated Nutritional Goals BEE in Kcals: Using Current wt Calories/Kcals/Kg 23-27 Kcals Calculated 2444-2765 Protein: Using Current wt Protein g/k.8 Protein Calculated 60 Fluid: ml 1725-1998ml (1ml/kcal) Nutritional Problem No current Nutrition Prob Problem N/A Malnutrition Alert Is there a minimum of two criteria No selected? Query Text:Check all the applicable criteria. A minimum of two criteria are recommended for diagnosis of either severe or non-severe malnutrition. Malnutrition Related to Morbid Obesity Malnutrition related to morbid obesity No Intervention/Recommendation Comments 1. Continue with regular diet as ordered. 2. Monitor PO intake, wt, labs and skin integrity 3. F/U as low risk in 7 days Expected Outcomes/Goals Expected Outcomes/Goals 1. PO intake to meet at least 75% of nutritional needs. 2. Wt stability, skin to remain intact, labs to approach WNL.
[2019-09-27] MEDS: Multivitamin w/ Minerals Tab PO SCH (08:21)
--- NOTE | 2019-09-27 10:13 | Progress Notes ---
DATE: SUBJECTIVE: Chart was reviewed and the patient interviewed. Also, discussed the patient's condition with the staff and reviewed records and labs. The patient's affect is brighter, but the patient is still confused. She still needs lots of redirections. She is also interacting more with peers and with others, but in a confused state. Also, she is still asking for leaving, but no safe plan for discharge. ASSESSMENT: The patient is still considered to be gravely disabled. TREATMENT PLAN: Continue to monitor behavior and condition closely. Also, continue adjusting psychotropic medications and working on discharge plans and placement issue. JOB# [id number]
--- NOTE | 2019-09-27 10:13 | Progress Notes ---
DATE: SUBJECTIVE: Chart was reviewed and the patient interviewed. Also discussed the patient's condition with the staff and reviewed records and labs. The patient continued to be pleasantly confused. The patient also is still depressed, but is having no major behavioral problems. She is also interacting more with peers and with others, but in a confused state. Otherwise, the patient is compliant with taking her medications with no side effects of medications. ASSESSMENT: The patient is still considered to be gravely disabled. TREATMENT PLAN: Continue to monitor behavior and condition closely. Also, we are working on her placement issue and on discharge plans. JOB# [id number]
--- NOTE | 2019-09-27 12:49 | Internal Medicine Prog Note ---
Internal Medicine Subjective - Subjective Patient seen and examined:: with staff, chart reviewed Patient is:: awake, verbal, interactive, ambulating, confused Per staff patient has:: no adverse event, no episodes of fall, eating well, tolerating meds Internal Medicine Objective - Results Recent Labs: Laboratory Last Values POC Glucose 112 MG/DL (70 - 105) H 08/11/19 21:00 Triglycerides 162 mg/dL (<150) H 12/31/18 08:04 Cholesterol 234 mg/dL (<200) H 12/31/18 08:04 LDL Cholesterol Direct 155 mg/dL (75-193) 12/31/18 08:04 HDL Cholesterol 62 mg/dL (23-92) 12/31/18 08:04 - Physical Exam Vitals and I&O: Vital Signs Temp 97.5 F 09/27/19 06:11 Pulse 77 09/27/19 06:11 Resp 18 09/27/19 07:46 BP 133/67 09/27/19 06:11 Pulse Ox 97 09/27/19 06:11 Intake & Output 09/26/19 09/27/19 09/27/19 18:59 06:59 18:59 Intake Total 1200 120 Balance 1200 120 Intake: Oral 960 120 Other 240 Other: # Voids 3 2 # Bowel Movements 1 0 Active Medications: Current Medications Acetaminophen (Tylenol) 650 mg PO Q4H PRN PRN Reason: Pain (Mild 1-3) Stop: 10/07/19 17:51 Acetaminophen (Tylenol) 650 mg PO Q4H PRN PRN Reason: Temperature above 101 Stop: 10/07/19 17:53 Alendronate Sodium (Fosamax) 70 mg PO QTHUR@0630 [facility] Stop: 11/12/19 06:29 Last Admin: 09/27/19 06:26 Dose: 70 mg Donepezil HCl (Aricept) 10 mg PO HS [facility] Last Admin: 09/26/19 20:21 Dose: 10 mg General: demented, thin HEENT: NC/AT, PERRLA, EOMI Neck: Supple, No JVD, No thyromegaly Lungs: CTAB Cardiovascular: RRR, Normal S1, Normal S2, with murmur Abdomen: soft, thin, non-distended, positive bowel sound Extremities: excoriation Neurological: no change Internal Medicine Assmt/Plan - Assessment Assessment: alzheimers dementa elevated chol djd osteoporosis ho old left hip fx - Plan Plan: fall precaution nutritional support cont on calcium supplemetn - resume fosamax will cont to follow dw rn add mvi Nutritional Asmnt/Malnutr-PDOC - Dietary Evaluation Malnutrition Findings (Please click <Entered> for more info): Nutritional Asmnt/Malnutrition Start: 01/04/19 09: 50 Text: Status: Complete Freq: Protocol: Document 01/04/19 14:59 LCHENG (Rec: 01/04/19 15:06 LCHENG [email or web address]) Nutritional Asmnt/Malnutrition Patient General Information Nutritional Screening Moderate Risk Diagnosis psychosis Pertinent Medical Hx/Surgical Hx dementia, DJD, osteoporosis Subjective Information pt seen lying in bed, awake and alert, stated food has beed great. Pt is not a big eater. Encourage to eat balanced meals and pt agreed with it. Per EMR, PO intake 75 -100% Current Diet Order/ Nutrition Support regular Pertinent Medications reviewed Pertinent Labs 12/31 reviewed Nutritional Hx/Data Height 1.65 m Height (Calculated Centimeters) 165.1 Current Weight (lbs) 74.843 kg Weight (Calculated Kilograms) 74.8 Weight (Calculated Grams) 70768.7 [place] Body Weight 125 Body Mass Index (BMI) 27.4 Weight Status Overweight GI Symptoms GI Symptoms None Last BM 01/04 x 2 Difficult in: None Skin Integrity/Comment: intact Current %PO Good (75-100%) Estimated Nutritional Goals BEE in Kcals: Using Current wt Calories/Kcals/Kg 23-27 Kcals Calculated 1265-1010 Protein: Using Current wt Protein g/k.8 Protein Calculated 60 Fluid: ml 1725-1998ml (1ml/kcal) Nutritional Problem No current Nutrition Prob Problem N/A Malnutrition Alert Is there a minimum of two criteria No selected? Query Text:Check all the applicable criteria. A minimum of two criteria are recommended for diagnosis of either severe or non-severe malnutrition. Malnutrition Related to Morbid Obesity Malnutrition related to morbid obesity No Intervention/Recommendation Comments 1. Continue with regular diet as ordered. 2. Monitor PO intake, wt, labs and skin integrity 3. F/U as low risk in 7 days Expected Outcomes/Goals Expected Outcomes/Goals 1. PO intake to meet at least 75% of nutritional needs. 2. Wt stability, skin to remain intact, labs to approach WNL.
[2019-09-28] MEDS: Multivitamin w/ Minerals Tab PO SCH (08:25)
--- NOTE | 2019-09-28 12:48 | Internal Medicine Prog Note ---
Internal Medicine Subjective - Subjective Patient seen and examined:: with staff, chart reviewed Patient is:: awake, verbal, interactive, ambulating, confused Per staff patient has:: no adverse event, no episodes of fall, eating well, tolerating meds Internal Medicine Objective - Results Recent Labs: Laboratory Last Values POC Glucose 112 MG/DL (70 - 105) H 08/11/19 21:00 Triglycerides 162 mg/dL (<150) H 12/31/18 08:04 Cholesterol 234 mg/dL (<200) H 12/31/18 08:04 LDL Cholesterol Direct 155 mg/dL (75-193) 12/31/18 08:04 HDL Cholesterol 62 mg/dL (23-92) 12/31/18 08:04 - Physical Exam Vitals and I&O: Vital Signs Temp 97.8 F 09/28/19 06:33 Pulse 70 09/28/19 06:33 Resp 19 09/28/19 06:33 BP 108/69 09/28/19 06:33 Pulse Ox 97 09/28/19 06:33 Intake & Output 09/27/19 09/28/19 09/28/19 18:59 06:59 18:59 Intake Total 120 Balance 120 Intake: Oral 120 Other: # Voids 2 2 # Bowel Movements 0 Active Medications: Current Medications Acetaminophen (Tylenol) 650 mg PO Q4H PRN PRN Reason: Pain (Mild 1-3) Stop: 10/07/19 17:51 Acetaminophen (Tylenol) 650 mg PO Q4H PRN PRN Reason: Temperature above 101 Stop: 10/07/19 17:53 Alendronate Sodium (Fosamax) 70 mg PO QTHUR@0630 [facility] Stop: 11/12/19 06:29 Last Admin: 09/27/19 06:26 Dose: 70 mg Donepezil HCl (Aricept) 10 mg PO [facility] Last Admin: 09/27/19 21:54 Dose: 10 mg General: demented, thin HEENT: NC/AT, PERRLA, EOMI Neck: Supple, No JVD, No thyromegaly Lungs: CTAB Cardiovascular: RRR, Normal S1, Normal S2, with murmur Abdomen: soft, thin, non-distended, positive bowel sound Extremities: excoriation Neurological: no change Internal Medicine Assmt/Plan - Assessment Assessment: alzheimers dementa elevated chol djd osteoporosis ho old left hip fx - Plan Plan: fall precaution nutritional support cont on calcium supplemetn - resume fosamax will cont to follow dw rn add mvi Nutritional Asmnt/Malnutr-PDOC - Dietary Evaluation Malnutrition Findings (Please click <Entered> for more info): Nutritional Asmnt/Malnutrition Start: 01/04/19 09: 50 Text: Status: Complete Freq: Protocol: Document 01/04/19 14:59 LCHENG (Rec: 01/04/19 15:06 LCHENG [email or web address]) Nutritional Asmnt/Malnutrition Patient General Information Nutritional Screening Moderate Risk Diagnosis psychosis Pertinent Medical Hx/Surgical Hx dementia, DJD, osteoporosis Subjective Information pt seen lying in bed, awake and alert, stated food has beed great. Pt is not a big eater. Encourage to eat balanced meals and pt agreed with it. Per EMR, PO intake 75 -100% Current Diet Order/ Nutrition Support regular Pertinent Medications reviewed Pertinent Labs 12/31 reviewed Nutritional Hx/Data Height 1.65 m Height (Calculated Centimeters) 165.1 Current Weight (lbs) 74.843 kg Weight (Calculated Kilograms) 74.8 Weight (Calculated Grams) 80612.7 [place] Body Weight 125 Body Mass Index (BMI) 27.4 Weight Status Overweight GI Symptoms GI Symptoms None Last BM 01/04 x 2 Difficult in: None Skin Integrity/Comment: intact Current %PO Good (75-100%) Estimated Nutritional Goals BEE in Kcals: Using Current wt Calories/Kcals/Kg 23-27 Kcals Calculated 9923-2146 Protein: Using Current wt Protein g/k.8 Protein Calculated 60 Fluid: ml 1725-1998ml (1ml/kcal) Nutritional Problem No current Nutrition Prob Problem N/A Malnutrition Alert Is there a minimum of two criteria No selected? Query Text:Check all the applicable criteria. A minimum of two criteria are recommended for diagnosis of either severe or non-severe malnutrition. Malnutrition Related to Morbid Obesity Malnutrition related to morbid obesity No Intervention/Recommendation Comments 1. Continue with regular diet as ordered. 2. Monitor PO intake, wt, labs and skin integrity 3. F/U as low risk in 7 days Expected Outcomes/Goals Expected Outcomes/Goals 1. PO intake to meet at least 75% of nutritional needs. 2. Wt stability, skin to remain intact, labs to approach WNL.
--- NOTE | 2019-09-28 23:27 | Progress Notes ---
DATE: SUBJECTIVE: Chart was reviewed and the patient interviewed. Also discussed the patient's condition with the staff and reviewed records and labs. The patient is still pleasantly confused. The patient also is still depressed and she is still interacting minimally with others. The patient also is still suspicious and is still asking to go home, but she is still unable to provide any safe plan for self-care. ASSESSMENT: The patient is still waiting for placement. TREATMENT PLAN: Continue to monitor her behavior and continue to work on discharge plans and placement issue. JOB# [id number]
[2019-09-29] MEDS: Multivitamin w/ Minerals Tab PO SCH (08:15)
--- NOTE | 2019-09-29 16:36 | Internal Medicine Prog Note ---
Internal Medicine Subjective - Subjective Service Date: 09/29/19 Patient is:: awake, verbal, interactive, ambulating, confused Per staff patient has:: no adverse event, no episodes of fall, eating well, tolerating meds Internal Medicine Objective - Results Recent Labs: Laboratory Last Values POC Glucose 112 MG/DL (70 - 105) H 08/11/19 21:00 Triglycerides 162 mg/dL (<150) H 12/31/18 08:04 Cholesterol 234 mg/dL (<200) H 12/31/18 08:04 LDL Cholesterol Direct 155 mg/dL (75-193) 12/31/18 08:04 HDL Cholesterol 62 mg/dL (23-92) 12/31/18 08:04 - Physical Exam Vitals and I&O: Vital Signs Temp 97.9 F 09/29/19 15:05 Pulse 70 09/29/19 15:05 Resp 20 09/29/19 15:05 BP 88/58 09/29/19 15:05 Pulse Ox 96 09/29/19 15:05 Intake & Output 09/28/19 09/29/19 09/29/19 18:59 06:59 18:59 Intake Total 300 Balance 300 Intake: Oral 300 Other: # Voids 1 # Bowel Movements 0 Active Medications: Current Medications Acetaminophen (Tylenol) 650 mg PO Q4H PRN PRN Reason: Pain (Mild 1-3) Stop: 10/07/19 17:51 Acetaminophen (Tylenol) 650 mg PO Q4H PRN PRN Reason: Temperature above 101 Stop: 10/07/19 17:53 Alendronate Sodium (Fosamax) 70 mg PO QTHUR@0630 [facility] Stop: 11/12/19 06:29 Last Admin: 09/27/19 06:26 Dose: 70 mg Donepezil HCl (Aricept) 10 mg PO [facility] Last Admin: 09/28/19 20:47 Dose: 10 mg General: demented, thin HEENT: NC/AT, PERRLA, EOMI Neck: Supple, No JVD, No thyromegaly Lungs: CTAB Cardiovascular: RRR, Normal S1, Normal S2, with murmur Abdomen: soft, thin, non-distended, positive bowel sound Extremities: excoriation Neurological: no change Internal Medicine Assmt/Plan - Assessment Assessment: alzheimers dementa elevated chol djd osteoporosis - Plan Plan: fall precaution nutritional support cont on calcium supplement will cont to follow dw rn add mvi placement ongoing Nutritional Asmnt/Malnutr-PDOC - Dietary Evaluation Malnutrition Findings (Please click <Entered> for more info): Nutritional Asmnt/Malnutrition Start: 01/04/19 09: 50 Text: Status: Complete Freq: Protocol: Document 01/04/19 14:59 [email or web address] (Rec: 01/04/19 15:06 LCHENG [email or web address]) Nutritional Asmnt/Malnutrition Patient General Information Nutritional Screening Moderate Risk Diagnosis psychosis Pertinent Medical Hx/Surgical Hx dementia, DJD, osteoporosis Subjective Information pt seen lying in bed, awake and alert, stated food has beed great. Pt is not a big eater. Encourage to eat balanced meals and pt agreed with it. Per EMR, PO intake 75 -100% Current Diet Order/ Nutrition Support regular Pertinent Medications reviewed Pertinent Labs / reviewed Nutritional Hx/Data Height 5 ft 5 in Height (Calculated Centimeters) 165.1 Current Weight (lbs) 165 lb Weight (Calculated Kilograms) 74.8 Weight (Calculated Grams) 36297.7 [place] Body Weight 125 Body Mass Index (BMI) 27.4 Weight Status Overweight GI Symptoms GI Symptoms None Last BM 01/04 x 2 Difficult in: None Skin Integrity/Comment: intact Current %PO Good (75-100%) Estimated Nutritional Goals BEE in Kcals: Using Current wt Calories/Kcals/Kg 23-27 Kcals Calculated 2632-2372 Protein: Using Current wt Protein g/k.8 Protein Calculated 60 Fluid: ml 1725-1998ml (1ml/kcal) Nutritional Problem No current Nutrition Prob Problem N/A Malnutrition Alert Is there a minimum of two criteria No selected? Query Text:Check all the applicable criteria. A minimum of two criteria are recommended for diagnosis of either severe or non-severe malnutrition. Malnutrition Related to Morbid Obesity Malnutrition related to morbid obesity No Intervention/Recommendation Comments 1. Continue with regular diet as ordered. 2. Monitor PO intake, wt, labs and skin integrity 3. F/U as low risk in 7 days Expected Outcomes/Goals Expected Outcomes/Goals 1. PO intake to meet at least 75% of nutritional needs. 2. Wt stability, skin to remain intact, labs to approach WNL.
--- NOTE | 2019-09-29 18:10 | Psych Progress Note ---
Psych Progress Note - Intro Date of Progress Note: 09/29/19 - Assessment Assessment: Patient interviewed, case discussed with staff, chart and records were reviewed. Patient is asleep. No suicidal or homicidal thoughts. Remains confused, needs redirection on the unit. She requires staff assistance for basic needs. She has no plan for self care. - Vitals, I&O Vitals: Vital Signs - 24 hr 09/28/19 09/29/19 09/29/19 19:46 05:59 15:05 Temp 97.6 F 97.6 F 97.9 F HR 71 66 70 RR 20 20 20 BP 118/83 110/72 88/58 O2 Sat % 98 97 96 - Objective Psych Objective: presents restless, anxious, depressed, constricted, A&O x 1, insight is poor, no SI/HI noted, no AH/VH, limited cooperation - Plan Plan: cont current treatment plan. - Review of Relevant Data Review of Relevant Data: I have reviewed the following items and time jimena (where applicable) has been applied. - Medications Current Medications: Current Medications Acetaminophen (Tylenol) 650 mg PO Q4H PRN PRN Reason: Pain (Mild 1-3) Stop: 10/07/19 17:51 Acetaminophen (Tylenol) 650 mg PO Q4H PRN PRN Reason: Temperature above 101 Stop: 10/07/19 17:53 Alendronate Sodium (Fosamax) 70 mg PO QTHUR@0630 [facility] Stop: 11/12/19 06:29 Last Admin: 09/27/19 06:26 Dose: 70 mg Donepezil HCl (Aricept) 10 mg PO HS [facility] Last Admin: 09/28/19 20:47 Dose: 10 mg
--- NOTE | 2019-09-30 07:37 | Progress Notes ---
DATE: 09/30/2019 SUBJECTIVE: The patient remains confused, disoriented, sometimes intrusive, needing redirection. Needs staff assistance, unable to care for her basic needs. We are trying to work on a safe disposition. Medications were noted. Vitals noted. Discussed with nursing staff. JOB# [id number]
[2019-09-30] MEDS: Multivitamin w/ Minerals Tab PO SCH (08:51)
--- NOTE | 2019-09-30 12:36 | Internal Medicine Prog Note ---
Internal Medicine Subjective - Subjective Service Date: 09/30/19 Patient is:: awake, verbal, interactive, ambulating, confused Per staff patient has:: no adverse event, no episodes of fall, eating well, tolerating meds Internal Medicine Objective - Results Recent Labs: Laboratory Last Values POC Glucose 112 MG/DL (70 - 105) H 08/11/19 21:00 Triglycerides 162 mg/dL (<150) H 12/31/18 08:04 Cholesterol 234 mg/dL (<200) H 12/31/18 08:04 LDL Cholesterol Direct 155 mg/dL (75-193) 12/31/18 08:04 HDL Cholesterol 62 mg/dL (23-92) 12/31/18 08:04 - Physical Exam Vitals and I&O: Vital Signs Temp 97.7 F 09/30/19 05:44 Pulse 67 09/30/19 05:44 Resp 20 09/30/19 05:44 BP 113/78 09/30/19 05:44 Pulse Ox 97 09/30/19 05:44 Intake & Output 09/29/19 09/30/19 09/30/19 18:59 06:59 18:59 Intake Total 950 300 Balance 950 300 Intake: Oral 950 300 Other: # Voids 3 1 # Bowel Movements 1 0 Active Medications: Current Medications Acetaminophen (Tylenol) 650 mg PO Q4H PRN PRN Reason: Pain (Mild 1-3) Stop: 10/07/19 17:51 Acetaminophen (Tylenol) 650 mg PO Q4H PRN PRN Reason: Temperature above 101 Stop: 10/07/19 17:53 Alendronate Sodium (Fosamax) 70 mg PO QTHUR@0630 [facility] Stop: 11/12/19 06:29 Last Admin: 09/27/19 06:26 Dose: 70 mg Donepezil HCl (Aricept) 10 mg PO [facility] Last Admin: 09/29/19 21:46 Dose: 10 mg General: demented, thin HEENT: NC/AT, PERRLA, EOMI Neck: Supple, No JVD, No thyromegaly Lungs: CTAB Cardiovascular: RRR, Normal S1, Normal S2, with murmur Abdomen: soft, thin, non-distended, positive bowel sound Extremities: excoriation Neurological: no change Internal Medicine Assmt/Plan - Assessment Assessment: alzheimers dementa elevated chol djd osteoporosis - Plan Plan: fall precaution nutritional support cont on calcium supplement will cont to follow dw rn add mvi placement ongoing Nutritional Asmnt/Malnutr-PDOC - Dietary Evaluation Malnutrition Findings (Please click <Entered> for more info): Nutritional Asmnt/Malnutrition Start: 01/04/19 09: 50 Text: Status: Complete Freq: Protocol: Document 01/04/19 14:59 TARIK (Rec: 01/04/19 15:06 LCCOREY [id number]) Nutritional Asmnt/Malnutrition Patient General Information Nutritional Screening Moderate Risk Diagnosis psychosis Pertinent Medical Hx/Surgical Hx dementia, DJD, osteoporosis Subjective Information pt seen lying in bed, awake and alert, stated food has beed great. Pt is not a big eater. Encourage to eat balanced meals and pt agreed with it. Per EMR, PO intake 75 -100% Current Diet Order/ Nutrition Support regular Pertinent Medications reviewed Pertinent Labs / reviewed Nutritional Hx/Data Height 5 ft 5 in Height (Calculated Centimeters) 165.1 Current Weight (lbs) 165 lb Weight (Calculated Kilograms) 74.8 Weight (Calculated Grams) 16383.7 [place] Body Weight 125 Body Mass Index (BMI) 27.4 Weight Status Overweight GI Symptoms GI Symptoms None Last BM 01/04 x 2 Difficult in: None Skin Integrity/Comment: intact Current %PO Good (75-100%) Estimated Nutritional Goals BEE in Kcals: Using Current wt Calories/Kcals/Kg 23-27 Kcals Calculated 1417-5666 Protein: Using Current wt Protein g/k.8 Protein Calculated 60 Fluid: ml 1725-1998ml (1ml/kcal) Nutritional Problem No current Nutrition Prob Problem N/A Malnutrition Alert Is there a minimum of two criteria No selected? Query Text:Check all the applicable criteria. A minimum of two criteria are recommended for diagnosis of either severe or non-severe malnutrition. Malnutrition Related to Morbid Obesity Malnutrition related to morbid obesity No Intervention/Recommendation Comments 1. Continue with regular diet as ordered. 2. Monitor PO intake, wt, labs and skin integrity 3. F/U as low risk in 7 days Expected Outcomes/Goals Expected Outcomes/Goals 1. PO intake to meet at least 75% of nutritional needs. 2. Wt stability, skin to remain intact, labs to approach WNL.
[2019-10-01] MEDS: Multivitamin w/ Minerals Tab PO SCH (08:31)
--- NOTE | 2019-10-01 12:38 | Internal Medicine Prog Note ---
Internal Medicine Subjective - Subjective Patient seen and examined:: with staff, chart reviewed Patient is:: awake, verbal, interactive, ambulating, confused Per staff patient has:: no adverse event, no episodes of fall, eating well, tolerating meds Internal Medicine Objective - Results Recent Labs: Laboratory Last Values POC Glucose 112 MG/DL (70 - 105) H 08/11/19 21:00 Triglycerides 162 mg/dL (<150) H 12/31/18 08:04 Cholesterol 234 mg/dL (<200) H 12/31/18 08:04 LDL Cholesterol Direct 155 mg/dL (75-193) 12/31/18 08:04 HDL Cholesterol 62 mg/dL (23-92) 12/31/18 08:04 - Physical Exam Vitals and I&O: Vital Signs Temp 98 F 10/01/19 06:14 Pulse 57 10/01/19 06:14 Resp 19 10/01/19 06:14 BP 114/67 10/01/19 06:14 Pulse Ox 93 10/01/19 06:14 Intake & Output 09/30/19 10/01/19 10/01/19 18:59 06:59 18:59 Intake Total 1000 240 Balance 1000 240 Intake: Oral 1000 240 Other: # Voids 3 3 # Bowel Movements 1 0 Active Medications: Current Medications Acetaminophen (Tylenol) 650 mg PO Q4H PRN PRN Reason: Pain (Mild 1-3) Stop: 10/07/19 17:51 Acetaminophen (Tylenol) 650 mg PO Q4H PRN PRN Reason: Temperature above 101 Stop: 10/07/19 17:53 Alendronate Sodium (Fosamax) 70 mg PO QTHUR@0630 [facility] Stop: 11/12/19 06:29 Last Admin: 09/27/19 06:26 Dose: 70 mg Donepezil HCl (Aricept) 10 mg PO [facility] Last Admin: 09/30/19 21:10 Dose: 10 mg General: demented, thin HEENT: NC/AT, PERRLA, EOMI Neck: Supple, No JVD, No thyromegaly Lungs: CTAB Cardiovascular: RRR, Normal S1, Normal S2, with murmur Abdomen: soft, thin, non-distended, positive bowel sound Extremities: excoriation Neurological: no change Internal Medicine Assmt/Plan - Assessment Assessment: alzheimers dementa elevated chol djd osteoporosis ho old left hip fx - Plan Plan: fall precaution nutritional support cont on calcium supplemetn - resume fosamax will cont to follow dw rn add mvi Nutritional Asmnt/Malnutr-PDOC - Dietary Evaluation Malnutrition Findings (Please click <Entered> for more info): Nutritional Asmnt/Malnutrition Start: 01/04/19 09: 50 Text: Status: Complete Freq: Protocol: Document 01/04/19 14:59 LCHENG (Rec: 01/04/19 15:06 LCHENG [id number]) Nutritional Asmnt/Malnutrition Patient General Information Nutritional Screening Moderate Risk Diagnosis psychosis Pertinent Medical Hx/Surgical Hx dementia, DJD, osteoporosis Subjective Information pt seen lying in bed, awake and alert, stated food has beed great. Pt is not a big eater. Encourage to eat balanced meals and pt agreed with it. Per EMR, PO intake 75 -100% Current Diet Order/ Nutrition Support regular Pertinent Medications reviewed Pertinent Labs 12/31 reviewed Nutritional Hx/Data Height 1.65 m Height (Calculated Centimeters) 165.1 Current Weight (lbs) 74.843 kg Weight (Calculated Kilograms) 74.8 Weight (Calculated Grams) 49619.7 [place] Body Weight 125 Body Mass Index (BMI) 27.4 Weight Status Overweight GI Symptoms GI Symptoms None Last BM 01/04 x 2 Difficult in: None Skin Integrity/Comment: intact Current %PO Good (75-100%) Estimated Nutritional Goals BEE in Kcals: Using Current wt Calories/Kcals/Kg 23-27 Kcals Calculated 9094-7116 Protein: Using Current wt Protein g/k.8 Protein Calculated 60 Fluid: ml 1725-1998ml (1ml/kcal) Nutritional Problem No current Nutrition Prob Problem N/A Malnutrition Alert Is there a minimum of two criteria No selected? Query Text:Check all the applicable criteria. A minimum of two criteria are recommended for diagnosis of either severe or non-severe malnutrition. Malnutrition Related to Morbid Obesity Malnutrition related to morbid obesity No Intervention/Recommendation Comments 1. Continue with regular diet as ordered. 2. Monitor PO intake, wt, labs and skin integrity 3. F/U as low risk in 7 days Expected Outcomes/Goals Expected Outcomes/Goals 1. PO intake to meet at least 75% of nutritional needs. 2. Wt stability, skin to remain intact, labs to approach WNL.
[2019-10-02] MEDS: Multivitamin w/ Minerals Tab PO SCH (08:32)
--- NOTE | 2019-10-02 08:52 | Progress Notes ---
DATE: SUBJECTIVE: Chart was reviewed and the patient interviewed. Also discussed the patient's condition with the staff and reviewed records and labs. The patient is still anxious and is still in a depressed mood. The patient also is still slightly confused. She also is still trying to interact more with peers and with others. Otherwise, the patient is compliant with taking her medications. The patient is pleasantly confused. No side effects of medications. ASSESSMENT: The patient is still confused and considered to be gravely disabled. TREATMENT PLAN: Continue monitoring behavior and continue to work on discharge plans and placement issue. JOB# [id number]
--- NOTE | 2019-10-02 12:58 | Internal Medicine Prog Note ---
Internal Medicine Subjective - Subjective Patient seen and examined:: with staff, chart reviewed Patient is:: awake, verbal, interactive, ambulating, confused Per staff patient has:: no adverse event, no episodes of fall, eating well, tolerating meds Internal Medicine Objective - Results Recent Labs: Laboratory Last Values POC Glucose 112 MG/DL (70 - 105) H 08/11/19 21:00 Triglycerides 162 mg/dL (<150) H 12/31/18 08:04 Cholesterol 234 mg/dL (<200) H 12/31/18 08:04 LDL Cholesterol Direct 155 mg/dL (75-193) 12/31/18 08:04 HDL Cholesterol 62 mg/dL (23-92) 12/31/18 08:04 - Physical Exam Vitals and I&O: Vital Signs Temp 97.9 F 10/02/19 06:04 Pulse 53 10/02/19 06:04 Resp 18 10/02/19 06:04 BP 109/64 10/02/19 06:04 Pulse Ox 93 10/02/19 06:04 Intake & Output 10/01/19 10/02/19 10/02/19 18:59 06:59 18:59 Intake Total 1200 0 Balance 1200 0 Intake: Oral 960 0 Other 240 Other: # Voids 3 2 # Bowel Movements 1 0 Active Medications: Current Medications Acetaminophen (Tylenol) 650 mg PO Q4H PRN PRN Reason: Pain (Mild 1-3) Stop: 10/07/19 17:51 Acetaminophen (Tylenol) 650 mg PO Q4H PRN PRN Reason: Temperature above 101 Stop: 10/07/19 17:53 Alendronate Sodium (Fosamax) 70 mg PO QTHUR@0630 [facility] Stop: 11/12/19 06:29 Last Admin: 09/27/19 06:26 Dose: 70 mg Donepezil HCl (Aricept) 10 mg PO HS [facility] Last Admin: 10/01/19 21:07 Dose: 10 mg General: demented, thin HEENT: NC/AT, PERRLA, EOMI Neck: Supple, No JVD, No thyromegaly Lungs: CTAB Cardiovascular: RRR, Normal S1, Normal S2, with murmur Abdomen: soft, thin, non-distended, positive bowel sound Extremities: excoriation Neurological: no change Internal Medicine Assmt/Plan - Assessment Assessment: alzheimers dementa elevated chol djd osteoporosis ho old left hip fx - Plan Plan: fall precaution nutritional support cont on calcium supplemetn - resume fosamax will cont to follow dw rn add mvi Nutritional Asmnt/Malnutr-PDOC - Dietary Evaluation Malnutrition Findings (Please click <Entered> for more info): Nutritional Asmnt/Malnutrition Start: 01/04/19 09: 50 Text: Status: Complete Freq: Protocol: Document 01/04/19 14:59 LCHENG (Rec: 01/04/19 15:06 LCHENG [email or web address]) Nutritional Asmnt/Malnutrition Patient General Information Nutritional Screening Moderate Risk Diagnosis psychosis Pertinent Medical Hx/Surgical Hx dementia, DJD, osteoporosis Subjective Information pt seen lying in bed, awake and alert, stated food has beed great. Pt is not a big eater. Encourage to eat balanced meals and pt agreed with it. Per EMR, PO intake 75 -100% Current Diet Order/ Nutrition Support regular Pertinent Medications reviewed Pertinent Labs 12/31 reviewed Nutritional Hx/Data Height 1.65 m Height (Calculated Centimeters) 165.1 Current Weight (lbs) 74.843 kg Weight (Calculated Kilograms) 74.8 Weight (Calculated Grams) 32791.7 [place] Body Weight 125 Body Mass Index (BMI) 27.4 Weight Status Overweight GI Symptoms GI Symptoms None Last BM 01/04 x 2 Difficult in: None Skin Integrity/Comment: intact Current %PO Good (75-100%) Estimated Nutritional Goals BEE in Kcals: Using Current wt Calories/Kcals/Kg 23-27 Kcals Calculated 7734-9162 Protein: Using Current wt Protein g/k.8 Protein Calculated 60 Fluid: ml 1725-1998ml (1ml/kcal) Nutritional Problem No current Nutrition Prob Problem N/A Malnutrition Alert Is there a minimum of two criteria No selected? Query Text:Check all the applicable criteria. A minimum of two criteria are recommended for diagnosis of either severe or non-severe malnutrition. Malnutrition Related to Morbid Obesity Malnutrition related to morbid obesity No Intervention/Recommendation Comments 1. Continue with regular diet as ordered. 2. Monitor PO intake, wt, labs and skin integrity 3. F/U as low risk in 7 days Expected Outcomes/Goals Expected Outcomes/Goals 1. PO intake to meet at least 75% of nutritional needs. 2. Wt stability, skin to remain intact, labs to approach WNL.
--- NOTE | 2019-10-02 17:17 | Progress Notes ---
DATE: SUBJECTIVE: Chart was reviewed and the patient interviewed. Also discussed the patient's condition with the staff and reviewed records and labs. The patient continued to be pleasantly confused. The patient also is still restless and anxious. She also still needs lots of redirections. No behavioral problems. The patient is still unable to provide any safe plan for self-care. ASSESSMENT: The patient is still confused and is still considered to be gravely disabled. TREATMENT PLAN: Continue to monitor behavior and condition closely. Also, continue working on anger and irritability and continue to follow up closely. Also waiting for placement issue. JOB# [id number]
--- NOTE | 2019-10-03 07:19 | Progress Notes ---
DATE: SUBJECTIVE: Chart was reviewed and the patient interviewed. Also discussed the patient's condition with the staff and reviewed records and labs. The patient's affect is brighter. The patient is interacting more with peers and with others. The patient also denies any intention to harm herself or others, but she is still pleasantly confused and is still wandering around the unit with no major behavioral issues. The patient also still has mood swings and still needs redirections. ASSESSMENT: The patient is still considered to be gravely disabled. TREATMENT PLAN: Continue to monitor behavior and condition closely. Also, continue to work on her placement issue and today, supposedly will have x-ray taken in the preparation for her placement. JOB# [id number]
[2019-10-03] MEDS: Multivitamin w/ Minerals Tab PO SCH (09:26)
--- NOTE | 2019-10-03 12:32 | Diagnostic Imaging Report ---
CHEST X-RAY: AP view INDICATION: Positive PPD COMPARISON: None FINDINGS: Hyperinflated lungs are noted. There is no focal consolidation or pleural effusions The heart is normal in size. There is rightward convexity of the thoracic spine which may be due to positioning or scoliosis. IMPRESSION: Hyperinflated lungs and possible COPD. No focal consolidation identified.
--- NOTE | 2019-10-03 13:29 | Internal Medicine Prog Note ---
Internal Medicine Subjective - Subjective Patient seen and examined:: with staff, chart reviewed Patient is:: awake, verbal, interactive, ambulating, confused Per staff patient has:: no adverse event, no episodes of fall, eating well, tolerating meds Internal Medicine Objective - Results Recent Labs: Laboratory Last Values POC Glucose 112 MG/DL (70 - 105) H 08/11/19 21:00 Triglycerides 162 mg/dL (<150) H 12/31/18 08:04 Cholesterol 234 mg/dL (<200) H 12/31/18 08:04 LDL Cholesterol Direct 155 mg/dL (75-193) 12/31/18 08:04 HDL Cholesterol 62 mg/dL (23-92) 12/31/18 08:04 - Physical Exam Vitals and I&O: Vital Signs Temp 98.2 F 10/03/19 06:23 Pulse 68 10/03/19 06:23 Resp 19 10/03/19 06:23 BP 114/61 10/03/19 06:23 Pulse Ox 96 10/03/19 06:23 Intake & Output 10/02/19 10/03/19 10/03/19 18:59 06:59 18:59 Intake Total 900 120 Balance 900 120 Intake: Oral 900 120 Other: # Voids 3 3 # Bowel Movements 1 Active Medications: Current Medications Acetaminophen (Tylenol) 650 mg PO Q4H PRN PRN Reason: Pain (Mild 1-3) Stop: 10/07/19 17:51 Acetaminophen (Tylenol) 650 mg PO Q4H PRN PRN Reason: Temperature above 101 Stop: 10/07/19 17:53 Alendronate Sodium (Fosamax) 70 mg PO QTHUR@0630 [facility] Stop: 11/12/19 06:29 Last Admin: 09/27/19 06:26 Dose: 70 mg Donepezil HCl (Aricept) 10 mg PO [facility] Last Admin: 10/02/19 21:00 Dose: 10 mg General: demented, thin HEENT: NC/AT, PERRLA, EOMI Neck: Supple, No JVD, No thyromegaly Lungs: CTAB Cardiovascular: RRR, Normal S1, Normal S2, with murmur Abdomen: soft, thin, non-distended, positive bowel sound Extremities: excoriation Neurological: no change Internal Medicine Assmt/Plan - Assessment Assessment: alzheimers dementa elevated chol djd osteoporosis ho old left hip fx - Plan Plan: fall precaution nutritional support cont on calcium supplemetn - resume fosamax will cont to follow dw rn add mvi Nutritional Asmnt/Malnutr-PDOC - Dietary Evaluation Malnutrition Findings (Please click <Entered> for more info): Nutritional Asmnt/Malnutrition Start: 01/04/19 09: 50 Text: Status: Complete Freq: Protocol: Document 01/04/19 14:59 LCHENG (Rec: 01/04/19 15:06 LCHENG [email or web address]) Nutritional Asmnt/Malnutrition Patient General Information Nutritional Screening Moderate Risk Diagnosis psychosis Pertinent Medical Hx/Surgical Hx dementia, DJD, osteoporosis Subjective Information pt seen lying in bed, awake and alert, stated food has beed great. Pt is not a big eater. Encourage to eat balanced meals and pt agreed with it. Per EMR, PO intake 75 -100% Current Diet Order/ Nutrition Support regular Pertinent Medications reviewed Pertinent Labs 12/31 reviewed Nutritional Hx/Data Height 1.65 m Height (Calculated Centimeters) 165.1 Current Weight (lbs) 74.843 kg Weight (Calculated Kilograms) 74.8 Weight (Calculated Grams) 81677.7 [place] Body Weight 125 Body Mass Index (BMI) 27.4 Weight Status Overweight GI Symptoms GI Symptoms None Last BM 01/04 x 2 Difficult in: None Skin Integrity/Comment: intact Current %PO Good (75-100%) Estimated Nutritional Goals BEE in Kcals: Using Current wt Calories/Kcals/Kg 23-27 Kcals Calculated 7908-3679 Protein: Using Current wt Protein g/k.8 Protein Calculated 60 Fluid: ml 1725-1998ml (1ml/kcal) Nutritional Problem No current Nutrition Prob Problem N/A Malnutrition Alert Is there a minimum of two criteria No selected? Query Text:Check all the applicable criteria. A minimum of two criteria are recommended for diagnosis of either severe or non-severe malnutrition. Malnutrition Related to Morbid Obesity Malnutrition related to morbid obesity No Intervention/Recommendation Comments 1. Continue with regular diet as ordered. 2. Monitor PO intake, wt, labs and skin integrity 3. F/U as low risk in 7 days Expected Outcomes/Goals Expected Outcomes/Goals 1. PO intake to meet at least 75% of nutritional needs. 2. Wt stability, skin to remain intact, labs to approach WNL.
[2019-10-04] MEDS: Multivitamin w/ Minerals Tab PO SCH (08:39)
--- NOTE | 2019-10-04 08:40 | Progress Notes ---
DATE: PSYCHIATRIC PROGRESS NOTE SUBJECTIVE: Chart was reviewed and the patient interviewed. Also discussed the patient's condition with the staff and reviewed records and labs. The patient's affect is brighter. The patient is less irritable and less agitated and she is still pleasantly confused, wandering around the unit in a confused state, but no behavioral issues. She also still needs redirections. She also is still waiting for placement and seems to be at times depressed. ASSESSMENT: The patient is still awaiting for placement. TREATMENT PLAN: Continue to monitor behavior and condition closely. Also, continue to work on placement issue and discharge plans. JOB# [id number]
--- NOTE | 2019-10-04 15:21 | Internal Medicine Prog Note ---
Internal Medicine Subjective - Subjective Patient seen and examined:: with staff, chart reviewed Patient is:: awake, verbal, interactive, ambulating, confused Per staff patient has:: no adverse event, no episodes of fall, eating well, tolerating meds Internal Medicine Objective - Results Recent Labs: Laboratory Last Values POC Glucose 112 MG/DL (70 - 105) H 08/11/19 21:00 Triglycerides 162 mg/dL (<150) H 12/31/18 08:04 Cholesterol 234 mg/dL (<200) H 12/31/18 08:04 LDL Cholesterol Direct 155 mg/dL (75-193) 12/31/18 08:04 HDL Cholesterol 62 mg/dL (23-92) 12/31/18 08:04 - Physical Exam Vitals and I&O: Vital Signs Temp 97.8 F 10/04/19 06:00 Pulse 71 10/04/19 06:00 Resp 18 10/04/19 08:00 BP 121/70 10/04/19 06:00 Pulse Ox 98 10/04/19 06:00 Intake & Output 10/03/19 10/04/19 10/04/19 18:59 06:59 18:59 Intake Total 1200 120 Balance 1200 120 Intake: Oral 1200 120 Other: # Voids 2 2 # Bowel Movements 0 0 Stool Characteristics Formed Brown Active Medications: Current Medications Acetaminophen (Tylenol) 650 mg PO Q4H PRN PRN Reason: Pain (Mild 1-3) Stop: 10/07/19 17:51 Acetaminophen (Tylenol) 650 mg PO Q4H PRN PRN Reason: Temperature above 101 Stop: 10/07/19 17:53 Alendronate Sodium (Fosamax) 70 mg PO QTHUR@0630 [facility] Stop: 11/12/19 06:29 Last Admin: 10/04/19 06:16 Dose: 70 mg Donepezil HCl (Aricept) 10 mg PO HS [facility] Last Admin: 10/03/19 20:34 Dose: 10 mg General: demented, thin HEENT: NC/AT, PERRLA, EOMI Neck: Supple, No JVD, No thyromegaly Lungs: CTAB Cardiovascular: RRR, Normal S1, Normal S2, with murmur Abdomen: soft, thin, non-distended, positive bowel sound Extremities: excoriation Neurological: no change Internal Medicine Assmt/Plan - Assessment Assessment: alzheimers dementa elevated chol djd osteoporosis ho old left hip fx - Plan Plan: fall precaution nutritional support cont on calcium supplemetn - resume fosamax will cont to follow dw rn add mvi Nutritional Asmnt/Malnutr-PDOC - Dietary Evaluation Malnutrition Findings (Please click <Entered> for more info): Nutritional Asmnt/Malnutrition Start: 01/04/19 09: 50 Text: Status: Complete Freq: Protocol: Document 01/04/19 14:59 LCHENG (Rec: 01/04/19 15:06 LCHENG [email or web address]) Nutritional Asmnt/Malnutrition Patient General Information Nutritional Screening Moderate Risk Diagnosis psychosis Pertinent Medical Hx/Surgical Hx dementia, DJD, osteoporosis Subjective Information pt seen lying in bed, awake and alert, stated food has beed great. Pt is not a big eater. Encourage to eat balanced meals and pt agreed with it. Per EMR, PO intake 75 -100% Current Diet Order/ Nutrition Support regular Pertinent Medications reviewed Pertinent Labs 12/31 reviewed Nutritional Hx/Data Height 1.65 m Height (Calculated Centimeters) 165.1 Current Weight (lbs) 74.843 kg Weight (Calculated Kilograms) 74.8 Weight (Calculated Grams) 51148.7 [place] Body Weight 125 Body Mass Index (BMI) 27.4 Weight Status Overweight GI Symptoms GI Symptoms None Last BM 01/04 x 2 Difficult in: None Skin Integrity/Comment: intact Current %PO Good (75-100%) Estimated Nutritional Goals BEE in Kcals: Using Current wt Calories/Kcals/Kg 23-27 Kcals Calculated 9272-1913 Protein: Using Current wt Protein g/k.8 Protein Calculated 60 Fluid: ml 1725-1998ml (1ml/kcal) Nutritional Problem No current Nutrition Prob Problem N/A Malnutrition Alert Is there a minimum of two criteria No selected? Query Text:Check all the applicable criteria. A minimum of two criteria are recommended for diagnosis of either severe or non-severe malnutrition. Malnutrition Related to Morbid Obesity Malnutrition related to morbid obesity No Intervention/Recommendation Comments 1. Continue with regular diet as ordered. 2. Monitor PO intake, wt, labs and skin integrity 3. F/U as low risk in 7 days Expected Outcomes/Goals Expected Outcomes/Goals 1. PO intake to meet at least 75% of nutritional needs. 2. Wt stability, skin to remain intact, labs to approach WNL.
--- NOTE | 2019-10-05 07:43 | Progress Notes ---
DATE: 10/05/2019 PSYCHIATRIC PROGRESS NOTE SUBJECTIVE: "I am going to go home in [place] and the head of the police is my friend." The patient is still confused, but no behavioral issues and no agitation. The patient also is interacting slightly more. The patient also denies any intention to harm herself or others. She is still unable to provide safe plan for self-care and she is still considered to be gravely disabled. ASSESSMENT: The patient is still confused and considered to be gravely disabled, and waiting for placement. TREATMENT PLAN: Continue to monitor behavior and condition closely, and continue adjusting psychotropic medications and work on behavioral modification. JOB# [id number]
[2019-10-05] MEDS: Multivitamin w/ Minerals Tab PO SCH (08:13)
--- NOTE | 2019-10-05 13:12 | Internal Medicine Prog Note ---
Internal Medicine Subjective - Subjective Patient seen and examined:: with staff, chart reviewed Patient is:: awake, verbal, interactive, ambulating, confused Per staff patient has:: no adverse event, no episodes of fall, eating well, tolerating meds Internal Medicine Objective - Results Recent Labs: Laboratory Last Values POC Glucose 112 MG/DL (70 - 105) H 08/11/19 21:00 Triglycerides 162 mg/dL (<150) H 12/31/18 08:04 Cholesterol 234 mg/dL (<200) H 12/31/18 08:04 LDL Cholesterol Direct 155 mg/dL (75-193) 12/31/18 08:04 HDL Cholesterol 62 mg/dL (23-92) 12/31/18 08:04 - Physical Exam Vitals and I&O: Vital Signs Temp 96.1 F 10/05/19 05:57 Pulse 76 10/05/19 05:57 Resp 17 10/05/19 08:00 BP 128/77 10/05/19 05:57 Pulse Ox 98 10/05/19 05:57 Intake & Output 10/04/19 10/05/19 10/05/19 18:59 06:59 18:59 Intake Total 1200 300 Balance 1200 300 Intake: Oral 1200 300 Other: # Voids 1 # Bowel Movements 1 0 Stool Characteristics Formed Brown Active Medications: Current Medications Acetaminophen (Tylenol) 650 mg PO Q4H PRN PRN Reason: Pain (Mild 1-3) Stop: 10/07/19 17:51 Acetaminophen (Tylenol) 650 mg PO Q4H PRN PRN Reason: Temperature above 101 Stop: 10/07/19 17:53 Alendronate Sodium (Fosamax) 70 mg PO QTHUR@0630 [facility] Stop: 11/12/19 06:29 Last Admin: 10/04/19 06:16 Dose: 70 mg Donepezil HCl (Aricept) 10 mg PO HS [facility] Last Admin: 10/04/19 20:13 Dose: 10 mg General: demented, thin HEENT: NC/AT, PERRLA, EOMI Neck: Supple, No JVD, No thyromegaly Lungs: CTAB Cardiovascular: RRR, Normal S1, Normal S2, with murmur Abdomen: soft, thin, non-distended, positive bowel sound Extremities: excoriation Neurological: no change Internal Medicine Assmt/Plan - Assessment Assessment: alzheimers dementa elevated chol djd osteoporosis ho old left hip fx - Plan Plan: fall precaution nutritional support cont on calcium supplemetn - resume fosamax will cont to follow dw rn add mvi Nutritional Asmnt/Malnutr-PDOC - Dietary Evaluation Malnutrition Findings (Please click <Entered> for more info): Nutritional Asmnt/Malnutrition Start: 01/04/19 09: 50 Text: Status: Complete Freq: Protocol: Document 01/04/19 14:59 LCHENG (Rec: 01/04/19 15:06 LCHENG [email or web address]) Nutritional Asmnt/Malnutrition Patient General Information Nutritional Screening Moderate Risk Diagnosis psychosis Pertinent Medical Hx/Surgical Hx dementia, DJD, osteoporosis Subjective Information pt seen lying in bed, awake and alert, stated food has beed great. Pt is not a big eater. Encourage to eat balanced meals and pt agreed with it. Per EMR, PO intake 75 -100% Current Diet Order/ Nutrition Support regular Pertinent Medications reviewed Pertinent Labs 12/31 reviewed Nutritional Hx/Data Height 1.65 m Height (Calculated Centimeters) 165.1 Current Weight (lbs) 74.843 kg Weight (Calculated Kilograms) 74.8 Weight (Calculated Grams) 97235.7 [place] Body Weight 125 Body Mass Index (BMI) 27.4 Weight Status Overweight GI Symptoms GI Symptoms None Last BM 01/04 x 2 Difficult in: None Skin Integrity/Comment: intact Current %PO Good (75-100%) Estimated Nutritional Goals BEE in Kcals: Using Current wt Calories/Kcals/Kg 23-27 Kcals Calculated 4153-9165 Protein: Using Current wt Protein g/k.8 Protein Calculated 60 Fluid: ml 1725-1998ml (1ml/kcal) Nutritional Problem No current Nutrition Prob Problem N/A Malnutrition Alert Is there a minimum of two criteria No selected? Query Text:Check all the applicable criteria. A minimum of two criteria are recommended for diagnosis of either severe or non-severe malnutrition. Malnutrition Related to Morbid Obesity Malnutrition related to morbid obesity No Intervention/Recommendation Comments 1. Continue with regular diet as ordered. 2. Monitor PO intake, wt, labs and skin integrity 3. F/U as low risk in 7 days Expected Outcomes/Goals Expected Outcomes/Goals 1. PO intake to meet at least 75% of nutritional needs. 2. Wt stability, skin to remain intact, labs to approach WNL.
[2019-10-06] MEDS: Multivitamin w/ Minerals Tab PO SCH (09:03)
--- NOTE | 2019-10-06 09:55 | Internal Medicine Prog Note ---
Internal Medicine Subjective - Subjective Patient seen and examined:: with staff, chart reviewed Patient is:: awake, verbal, interactive, ambulating, confused Per staff patient has:: no adverse event, no episodes of fall, eating well, tolerating meds Internal Medicine Objective - Results Recent Labs: Laboratory Last Values POC Glucose 112 MG/DL (70 - 105) H 08/11/19 21:00 Triglycerides 162 mg/dL (<150) H 12/31/18 08:04 Cholesterol 234 mg/dL (<200) H 12/31/18 08:04 LDL Cholesterol Direct 155 mg/dL (75-193) 12/31/18 08:04 HDL Cholesterol 62 mg/dL (23-92) 12/31/18 08:04 - Physical Exam Vitals and I&O: Vital Signs Temp 98 F 10/06/19 06:43 Pulse 75 10/06/19 06:43 Resp 18 10/06/19 06:43 BP 105/66 10/06/19 06:43 Pulse Ox 96 10/06/19 06:43 Intake & Output 10/05/19 10/06/19 10/06/19 18:59 06:59 18:59 Intake Total 1000 480 Balance 1000 480 Intake: Oral 1000 480 Other: # Voids 4 1 # Bowel Movements 1 Stool Characteristics Formed Active Medications: Current Medications Acetaminophen (Tylenol) 650 mg PO Q4H PRN PRN Reason: Pain (Mild 1-3) Stop: 10/07/19 17:51 Acetaminophen (Tylenol) 650 mg PO Q4H PRN PRN Reason: Temperature above 101 Stop: 10/07/19 17:53 Alendronate Sodium (Fosamax) 70 mg PO [facility] Stop: 11/12/19 06:29 Last Admin: 10/04/19 06:16 Dose: 70 mg Donepezil HCl (Aricept) 10 mg PO [facility] Last Admin: 10/05/19 20:47 Dose: 10 mg General: demented, thin HEENT: NC/AT, PERRLA, EOMI Neck: Supple, No JVD, No thyromegaly Lungs: CTAB Cardiovascular: RRR, Normal S1, Normal S2, with murmur Abdomen: soft, thin, non-distended, positive bowel sound Extremities: excoriation Neurological: no change Internal Medicine Assmt/Plan - Assessment Assessment: alzheimers dementa elevated chol djd osteoporosis ho old left hip fx - Plan Plan: fall precaution nutritional support cont on calcium supplemetn - resume fosamax will cont to follow dw rn add mvi Nutritional Asmnt/Malnutr-PDOC - Dietary Evaluation Malnutrition Findings (Please click <Entered> for more info): Nutritional Asmnt/Malnutrition Start: 01/04/19 09: 50 Text: Status: Complete Freq: Protocol: Document 01/04/19 14:59 LCHENG (Rec: 01/04/19 15:06 LCHENG [email or web address]) Nutritional Asmnt/Malnutrition Patient General Information Nutritional Screening Moderate Risk Diagnosis psychosis Pertinent Medical Hx/Surgical Hx dementia, DJD, osteoporosis Subjective Information pt seen lying in bed, awake and alert, stated food has beed great. Pt is not a big eater. Encourage to eat balanced meals and pt agreed with it. Per EMR, PO intake 75 -100% Current Diet Order/ Nutrition Support regular Pertinent Medications reviewed Pertinent Labs 12/31 reviewed Nutritional Hx/Data Height 1.65 m Height (Calculated Centimeters) 165.1 Current Weight (lbs) 74.843 kg Weight (Calculated Kilograms) 74.8 Weight (Calculated Grams) 65480.7 [place] Body Weight 125 Body Mass Index (BMI) 27.4 Weight Status Overweight GI Symptoms GI Symptoms None Last BM 01/04 x 2 Difficult in: None Skin Integrity/Comment: intact Current %PO Good (75-100%) Estimated Nutritional Goals BEE in Kcals: Using Current wt Calories/Kcals/Kg 23-27 Kcals Calculated 6918-6024 Protein: Using Current wt Protein g/k.8 Protein Calculated 60 Fluid: ml 1725-1998ml (1ml/kcal) Nutritional Problem No current Nutrition Prob Problem N/A Malnutrition Alert Is there a minimum of two criteria No selected? Query Text:Check all the applicable criteria. A minimum of two criteria are recommended for diagnosis of either severe or non-severe malnutrition. Malnutrition Related to Morbid Obesity Malnutrition related to morbid obesity No Intervention/Recommendation Comments 1. Continue with regular diet as ordered. 2. Monitor PO intake, wt, labs and skin integrity 3. F/U as low risk in 7 days Expected Outcomes/Goals Expected Outcomes/Goals 1. PO intake to meet at least 75% of nutritional needs. 2. Wt stability, skin to remain intact, labs to approach WNL.
--- NOTE | 2019-10-06 19:17 | Progress Notes ---
DATE: 10/06/2019 SUBJECTIVE: The patient was seen and evaluated. The patient's chart was reviewed. No acute events today. She believes that she is going to continue to get [facility] Examination is stable. ASSESSMENT AND PLAN: Severe dementia, awaiting placement. Covering for Dr. Mason. JOB# [id number]
[2019-10-07] MEDS: Multivitamin w/ Minerals Tab PO SCH (09:16)
--- NOTE | 2019-10-07 19:16 | Internal Medicine Prog Note ---
Internal Medicine Subjective - Subjective Patient seen and examined:: with staff, chart reviewed Patient is:: awake, verbal, interactive, ambulating, confused Per staff patient has:: no adverse event, no episodes of fall, eating well, tolerating meds Internal Medicine Objective - Results Recent Labs: Laboratory Last Values POC Glucose 112 MG/DL (70 - 105) H 08/11/19 21:00 Triglycerides 162 mg/dL (<150) H 12/31/18 08:04 Cholesterol 234 mg/dL (<200) H 12/31/18 08:04 LDL Cholesterol Direct 155 mg/dL (75-193) 12/31/18 08:04 HDL Cholesterol 62 mg/dL (23-92) 12/31/18 08:04 - Physical Exam Vitals and I&O: Vital Signs Temp 98 F 10/07/19 14:00 Pulse 71 10/07/19 14:00 Resp 18 10/07/19 14:00 BP 95/77 10/07/19 14:00 Pulse Ox 99 10/07/19 14:00 Intake & Output 10/07/19 10/07/19 10/08/19 06:59 18:59 06:59 Intake Total 240 800 Balance 240 800 Intake: Oral 240 800 Other: # Voids 1 4 # Bowel Movements 1 Active Medications: Current Medications Alendronate Sodium (Fosamax) 70 mg PO QTHUR@0630 [facility] Stop: 11/12/19 06:29 Last Admin: 10/04/19 06:16 Dose: 70 mg Donepezil HCl (Aricept) 10 mg PO [facility] Last Admin: 10/06/19 20:23 Dose: 10 mg General: demented, thin HEENT: NC/AT, PERRLA, EOMI Neck: Supple, No JVD, No thyromegaly Lungs: CTAB Cardiovascular: RRR, Normal S1, Normal S2, with murmur Abdomen: soft, thin, non-distended, positive bowel sound Extremities: excoriation Neurological: no change Internal Medicine Assmt/Plan - Assessment Assessment: alzheimers dementa elevated chol djd osteoporosis ho old left hip fx - Plan Plan: fall precaution nutritional support cont on calcium supplemetn - resume fosamax will cont to follow dw rn add mvi Nutritional Asmnt/Malnutr-PDOC - Dietary Evaluation Malnutrition Findings (Please click <Entered> for more info): Nutritional Asmnt/Malnutrition Start: 01/04/19 09: 50 Text: Status: Complete Freq: Protocol: Document 01/04/19 14:59 LCHENG (Rec: 01/04/19 15:06 L[facility]ORE[facility] [id number]) Nutritional Asmnt/Malnutrition Patient General Information Nutritional Screening Moderate Risk Diagnosis psychosis Pertinent Medical Hx/Surgical Hx dementia, DJD, osteoporosis Subjective Information pt seen lying in bed, awake and alert, stated food has beed great. Pt is not a big eater. Encourage to eat balanced meals and pt agreed with it. Per EMR, PO intake 75 -100% Current Diet Order/ Nutrition Support regular Pertinent Medications reviewed Pertinent Labs 12/31 reviewed Nutritional Hx/Data Height 1.65 m Height (Calculated Centimeters) 165.1 Current Weight (lbs) 74.843 kg Weight (Calculated Kilograms) 74.8 Weight (Calculated Grams) 60236.7 [place] Body Weight 125 Body Mass Index (BMI) 27.4 Weight Status Overweight GI Symptoms GI Symptoms None Last BM 01/04 x 2 Difficult in: None Skin Integrity/Comment: intact Current %PO Good (75-100%) Estimated Nutritional Goals BEE in Kcals: Using Current wt Calories/Kcals/Kg 23-27 Kcals Calculated 2099-9523 Protein: Using Current wt Protein g/k.8 Protein Calculated 60 Fluid: ml 1725-1998ml (1ml/kcal) Nutritional Problem No current Nutrition Prob Problem N/A Malnutrition Alert Is there a minimum of two criteria No selected? Query Text:Check all the applicable criteria. A minimum of two criteria are recommended for diagnosis of either severe or non-severe malnutrition. Malnutrition Related to Morbid Obesity Malnutrition related to morbid obesity No Intervention/Recommendation Comments 1. Continue with regular diet as ordered. 2. Monitor PO intake, wt, labs and skin integrity 3. F/U as low risk in 7 days Expected Outcomes/Goals Expected Outcomes/Goals 1. PO intake to meet at least 75% of nutritional needs. 2. Wt stability, skin to remain intact, labs to approach WNL.
--- NOTE | 2019-10-07 20:08 | Progress Notes ---
DATE: 10/07/2019 SUBJECTIVE: Today on face to face, denies any complications or side effects. MENTAL STATUS EXAMINATION: Poor memory, confusion. ASSESSMENT AND PLAN: Dementia, severe. Awaiting placement. [facility]# [id number]
[2019-10-08] MEDS: Multivitamin w/ Minerals Tab PO SCH (08:23)
--- NOTE | 2019-10-08 12:56 | Internal Medicine Prog Note ---
Internal Medicine Subjective - Subjective Patient seen and examined:: with staff, chart reviewed Patient is:: awake, verbal, interactive, ambulating, confused Per staff patient has:: no adverse event, no episodes of fall, eating well, tolerating meds Internal Medicine Objective - Results Recent Labs: Laboratory Last Values POC Glucose 112 MG/DL (70 - 105) H 08/11/19 21:00 Triglycerides 162 mg/dL (<150) H 12/31/18 08:04 Cholesterol 234 mg/dL (<200) H 12/31/18 08:04 LDL Cholesterol Direct 155 mg/dL (75-193) 12/31/18 08:04 HDL Cholesterol 62 mg/dL (23-92) 12/31/18 08:04 - Physical Exam Vitals and I&O: Vital Signs Temp 97.8 F 10/08/19 05:36 Pulse 71 10/08/19 05:36 Resp 17 10/08/19 08:00 BP 104/74 10/08/19 05:36 Pulse Ox 97 10/08/19 05:36 Intake & Output 10/07/19 10/08/19 10/08/19 18:59 06:59 18:59 Intake Total 800 360 Balance 800 360 Intake: Oral 800 360 Other: # Voids 4 1 # Bowel Movements 1 Active Medications: Current Medications Acetaminophen (Tylenol) 650 mg PO Q4H PRN PRN Reason: Pain Or Fever above 101 Stop: 12/06/19 19:14 Alendronate Sodium (Fosamax) 70 mg PO QTHUR@0630 [facility] Stop: 11/12/19 06:29 Last Admin: 10/04/19 06:16 Dose: 70 mg Donepezil HCl (Aricept) 10 mg PO [facility] Last Admin: 10/07/19 21:12 Dose: 10 mg General: demented, thin HEENT: NC/AT, PERRLA, EOMI Neck: Supple, No JVD, No thyromegaly Lungs: CTAB Cardiovascular: RRR, Normal S1, Normal S2, with murmur Abdomen: soft, thin, non-distended, positive bowel sound Extremities: excoriation Neurological: no change Internal Medicine Assmt/Plan - Assessment Assessment: alzheimers dementa elevated chol djd osteoporosis ho old left hip fx - Plan Plan: fall precaution nutritional support cont on calcium supplemetn - resume fosamax will cont to follow dw rn add mvi Nutritional Asmnt/Malnutr-PDOC - Dietary Evaluation Malnutrition Findings (Please click <Entered> for more info): Nutritional Asmnt/Malnutrition Start: 01/04/19 09: 50 Text: Status: Complete Freq: Protocol: Document 01/04/19 14:59 LCHENG (Rec: 01/04/19 15:06 [email or web address] [email or web address]) Nutritional Asmnt/Malnutrition Patient General Information Nutritional Screening Moderate Risk Diagnosis psychosis Pertinent Medical Hx/Surgical Hx dementia, DJD, osteoporosis Subjective Information pt seen lying in bed, awake and alert, stated food has beed great. Pt is not a big eater. Encourage to eat balanced meals and pt agreed with it. Per EMR, PO intake 75 -100% Current Diet Order/ Nutrition Support regular Pertinent Medications reviewed Pertinent Labs 12/31 reviewed Nutritional Hx/Data Height 1.65 m Height (Calculated Centimeters) 165.1 Current Weight (lbs) 74.843 kg Weight (Calculated Kilograms) 74.8 Weight (Calculated Grams) 84398.7 [place] Body Weight 125 Body Mass Index (BMI) 27.4 Weight Status Overweight GI Symptoms GI Symptoms None Last BM 01/04 x 2 Difficult in: None Skin Integrity/Comment: intact Current %PO Good (75-100%) Estimated Nutritional Goals BEE in Kcals: Using Current wt Calories/Kcals/Kg 23-27 Kcals Calculated 0139-0535 Protein: Using Current wt Protein g/k.8 Protein Calculated 60 Fluid: ml 1725-1998ml (1ml/kcal) Nutritional Problem No current Nutrition Prob Problem N/A Malnutrition Alert Is there a minimum of two criteria No selected? Query Text:Check all the applicable criteria. A minimum of two criteria are recommended for diagnosis of either severe or non-severe malnutrition. Malnutrition Related to Morbid Obesity Malnutrition related to morbid obesity No Intervention/Recommendation Comments 1. Continue with regular diet as ordered. 2. Monitor PO intake, wt, labs and skin integrity 3. F/U as low risk in 7 days Expected Outcomes/Goals Expected Outcomes/Goals 1. PO intake to meet at least 75% of nutritional needs. 2. Wt stability, skin to remain intact, labs to approach WNL.
--- NOTE | 2019-10-08 23:36 | Progress Notes ---
DATE: 10/08/2019 SUBJECTIVE: Chart was reviewed and the patient interviewed. Also, discussed the patient's condition with the staff and reviewed records and labs. The patient is still anxious and in a depressed mood. The patient also is still pleasantly confused and pacing up and down the unit in a confused state, but no behavioral problems. Also, still no placement for the patient. ASSESSMENT: The patient is still depressed and is still confused. TREATMENT PLAN: Continue to monitor behavior and condition closely. Also, continue working on discharge plans and on placement issue and waiting for court hearing for discharge and placement of the patient. JOB# [id number]
--- NOTE | 2019-10-09 06:57 | Progress Notes ---
DATE: PSYCHIATRIC PROGRESS NOTE SUBJECTIVE: Chart was reviewed and the patient interviewed. Also discussed the patient's condition with the staff and reviewed records and labs. The patient is still in irritable and angry mood and the patient is still easily agitated. The patient also is still demanding and still has difficulty following staff directions. The patient also still has foul language towards the staff and peers. Also, intrusive to others. The patient also still has disorganized thoughts and is asking to leave, but at the same time, she has no safe plan for discharge and had no place to live. TREATMENT PLAN: Depakote blood level that was done on 09/26/2019 came back to be 50. We will monitor behavior and also, we will continue to follow up closely. Also, we will increase Depakote to 750 mg twice a day and we will continue to follow up. JOB# [id number]
[2019-10-09] MEDS: Multivitamin w/ Minerals Tab PO SCH (08:35)
--- NOTE | 2019-10-09 13:02 | Internal Medicine Prog Note ---
Internal Medicine Subjective - Subjective Patient seen and examined:: with staff, chart reviewed Patient is:: awake, verbal, interactive, ambulating, confused Per staff patient has:: no adverse event, no episodes of fall, eating well, tolerating meds Internal Medicine Objective - Results Recent Labs: Laboratory Last Values POC Glucose 112 MG/DL (70 - 105) H 08/11/19 21:00 Triglycerides 162 mg/dL (<150) H 12/31/18 08:04 Cholesterol 234 mg/dL (<200) H 12/31/18 08:04 LDL Cholesterol Direct 155 mg/dL (75-193) 12/31/18 08:04 HDL Cholesterol 62 mg/dL (23-92) 12/31/18 08:04 - Physical Exam Vitals and I&O: Vital Signs Temp 97.6 F 10/09/19 06:09 Pulse 56 10/09/19 06:09 Resp 18 10/09/19 08:00 BP 120/76 10/09/19 06:09 Pulse Ox 96 10/09/19 06:09 Intake & Output 10/08/19 10/09/19 10/09/19 18:59 06:59 18:59 Intake Total 1000 120 Balance 1000 120 Intake: Oral 1000 120 Other: # Voids 4 3 # Bowel Movements 1 0 Active Medications: Current Medications Acetaminophen (Tylenol) 650 mg PO Q4H PRN PRN Reason: Pain Or Fever above 101 Stop: 12/06/19 19:14 Alendronate Sodium (Fosamax) 70 mg PO QTHUR@0630 [facility] Stop: 11/12/19 06:29 Last Admin: 10/04/19 06:16 Dose: 70 mg Donepezil HCl (Aricept) 10 mg PO [facility] Last Admin: 10/08/19 20:32 Dose: 10 mg General: demented, thin HEENT: NC/AT, PERRLA, EOMI Neck: Supple, No JVD, No thyromegaly Lungs: CTAB Cardiovascular: RRR, Normal S1, Normal S2, with murmur Abdomen: soft, thin, non-distended, positive bowel sound Extremities: excoriation Neurological: no change Internal Medicine Assmt/Plan - Assessment Assessment: alzheimers dementa elevated chol djd osteoporosis ho old left hip fx - Plan Plan: fall precaution nutritional support cont on calcium supplemetn - resume fosamax will cont to follow dw rn add mvi Nutritional Asmnt/Malnutr-PDOC - Dietary Evaluation Malnutrition Findings (Please click <Entered> for more info): Nutritional Asmnt/Malnutrition Start: 01/04/19 09: 50 Text: Status: Complete Freq: Protocol: Document 01/04/19 14:59 LCHENG (Rec: 01/04/19 15:06 [email or web address] [email or web address]) Nutritional Asmnt/Malnutrition Patient General Information Nutritional Screening Moderate Risk Diagnosis psychosis Pertinent Medical Hx/Surgical Hx dementia, DJD, osteoporosis Subjective Information pt seen lying in bed, awake and alert, stated food has beed great. Pt is not a big eater. Encourage to eat balanced meals and pt agreed with it. Per EMR, PO intake 75 -100% Current Diet Order/ Nutrition Support regular Pertinent Medications reviewed Pertinent Labs 12/31 reviewed Nutritional Hx/Data Height 1.65 m Height (Calculated Centimeters) 165.1 Current Weight (lbs) 74.843 kg Weight (Calculated Kilograms) 74.8 Weight (Calculated Grams) 46482.7 [place] Body Weight 125 Body Mass Index (BMI) 27.4 Weight Status Overweight GI Symptoms GI Symptoms None Last BM 01/04 x 2 Difficult in: None Skin Integrity/Comment: intact Current %PO Good (75-100%) Estimated Nutritional Goals BEE in Kcals: Using Current wt Calories/Kcals/Kg 23-27 Kcals Calculated 4180-4571 Protein: Using Current wt Protein g/k.8 Protein Calculated 60 Fluid: ml 1725-1998ml (1ml/kcal) Nutritional Problem No current Nutrition Prob Problem N/A Malnutrition Alert Is there a minimum of two criteria No selected? Query Text:Check all the applicable criteria. A minimum of two criteria are recommended for diagnosis of either severe or non-severe malnutrition. Malnutrition Related to Morbid Obesity Malnutrition related to morbid obesity No Intervention/Recommendation Comments 1. Continue with regular diet as ordered. 2. Monitor PO intake, wt, labs and skin integrity 3. F/U as low risk in 7 days Expected Outcomes/Goals Expected Outcomes/Goals 1. PO intake to meet at least 75% of nutritional needs. 2. Wt stability, skin to remain intact, labs to approach WNL.
--- NOTE | 2019-10-10 07:39 | Progress Notes ---
DATE: PSYCHIATRIC PROGRESS NOTE SUBJECTIVE: Chart was reviewed and the patient interviewed. Also discussed the patient's condition with the staff and reviewed records and labs. The patient is still restless and is still anxious about her discharge and keep asking "I want to go home." She also still has difficulty for being in the hospital for a long time. The patient also is still easily irritable and still needs redirections and she still seems to be confused. Otherwise, the patient is cooperative and compliant with taking her medications. ASSESSMENT: The patient is still gravely disabled. TREATMENT PLAN: We will continue to monitor her condition and behavior closely. Also, we will continue working on placement issue and on discharge plans. JOB# [id number]
[2019-10-10] MEDS: Multivitamin w/ Minerals Tab PO SCH (08:31)
--- NOTE | 2019-10-10 13:19 | Internal Medicine Prog Note ---
Internal Medicine Subjective - Subjective Patient seen and examined:: with staff, chart reviewed Patient is:: awake, verbal, interactive, ambulating, confused Per staff patient has:: no adverse event, no episodes of fall, eating well, tolerating meds Internal Medicine Objective - Results Recent Labs: Laboratory Last Values POC Glucose 112 MG/DL (70 - 105) H 08/11/19 21:00 Triglycerides 162 mg/dL (<150) H 12/31/18 08:04 Cholesterol 234 mg/dL (<200) H 12/31/18 08:04 LDL Cholesterol Direct 155 mg/dL (75-193) 12/31/18 08:04 HDL Cholesterol 62 mg/dL (23-92) 12/31/18 08:04 - Physical Exam Vitals and I&O: Vital Signs Temp 97.8 F 10/10/19 06:14 Pulse 70 10/10/19 06:14 Resp 17 10/10/19 08:00 BP 127/75 10/10/19 06:14 Pulse Ox 99 10/10/19 06:14 Intake & Output 10/09/19 10/10/19 10/10/19 18:59 06:59 18:59 Intake Total 500 120 250 Balance 500 120 250 Intake: Oral 500 120 250 Other: # Voids 3 # Bowel Movements 1 0 Active Medications: Current Medications Acetaminophen (Tylenol) 650 mg PO Q4H PRN PRN Reason: Pain Or Fever above 101 Stop: 12/06/19 19:14 Alendronate Sodium (Fosamax) 70 mg PO QTHUR@0630 [facility] Stop: 11/12/19 06:29 Last Admin: 10/04/19 06:16 Dose: 70 mg Donepezil HCl (Aricept) 10 mg PO [facility] Last Admin: 10/09/19 21:05 Dose: 10 mg General: demented, thin HEENT: NC/AT, PERRLA, EOMI Neck: Supple, No JVD, No thyromegaly Lungs: CTAB Cardiovascular: RRR, Normal S1, Normal S2, with murmur Abdomen: soft, thin, non-distended, positive bowel sound Extremities: excoriation Neurological: no change Internal Medicine Assmt/Plan - Assessment Assessment: alzheimers dementa elevated chol djd osteoporosis ho old left hip fx - Plan Plan: fall precaution nutritional support cont on calcium supplemetn - resume fosamax will cont to follow dw rn add mvi Nutritional Asmnt/Malnutr-PDOC - Dietary Evaluation Malnutrition Findings (Please click <Entered> for more info): Nutritional Asmnt/Malnutrition Start: 01/04/19 09: 50 Text: Status: Complete Freq: Protocol: Document 01/04/19 14:59 LCHENG (Rec: 01/04/19 15:06 LCJOSEG [email or web address]) Nutritional Asmnt/Malnutrition Patient General Information Nutritional Screening Moderate Risk Diagnosis psychosis Pertinent Medical Hx/Surgical Hx dementia, DJD, osteoporosis Subjective Information pt seen lying in bed, awake and alert, stated food has beed great. Pt is not a big eater. Encourage to eat balanced meals and pt agreed with it. Per EMR, PO intake 75 -100% Current Diet Order/ Nutrition Support regular Pertinent Medications reviewed Pertinent Labs 12/31 reviewed Nutritional Hx/Data Height 1.65 m Height (Calculated Centimeters) 165.1 Current Weight (lbs) 74.843 kg Weight (Calculated Kilograms) 74.8 Weight (Calculated Grams) 68597.7 [place] Body Weight 125 Body Mass Index (BMI) 27.4 Weight Status Overweight GI Symptoms GI Symptoms None Last BM 01/04 x 2 Difficult in: None Skin Integrity/Comment: intact Current %PO Good (75-100%) Estimated Nutritional Goals BEE in Kcals: Using Current wt Calories/Kcals/Kg 23-27 Kcals Calculated 4059-5285 Protein: Using Current wt Protein g/k.8 Protein Calculated 60 Fluid: ml 1725-1998ml (1ml/kcal) Nutritional Problem No current Nutrition Prob Problem N/A Malnutrition Alert Is there a minimum of two criteria No selected? Query Text:Check all the applicable criteria. A minimum of two criteria are recommended for diagnosis of either severe or non-severe malnutrition. Malnutrition Related to Morbid Obesity Malnutrition related to morbid obesity No Intervention/Recommendation Comments 1. Continue with regular diet as ordered. 2. Monitor PO intake, wt, labs and skin integrity 3. F/U as low risk in 7 days Expected Outcomes/Goals Expected Outcomes/Goals 1. PO intake to meet at least 75% of nutritional needs. 2. Wt stability, skin to remain intact, labs to approach WNL.
[2019-10-11] MEDS: Multivitamin w/ Minerals Tab PO SCH (08:38)
--- NOTE | 2019-10-11 15:25 | Internal Medicine Prog Note ---
Internal Medicine Subjective - Subjective Patient seen and examined:: with staff, chart reviewed Patient is:: awake, verbal, interactive, ambulating, confused Per staff patient has:: no adverse event, no episodes of fall, eating well, tolerating meds Internal Medicine Objective - Results Recent Labs: Laboratory Last Values POC Glucose 112 MG/DL (70 - 105) H 08/11/19 21:00 Triglycerides 162 mg/dL (<150) H 12/31/18 08:04 Cholesterol 234 mg/dL (<200) H 12/31/18 08:04 LDL Cholesterol Direct 155 mg/dL (75-193) 12/31/18 08:04 HDL Cholesterol 62 mg/dL (23-92) 12/31/18 08:04 - Physical Exam Vitals and I&O: Vital Signs Temp 97.9 F 10/11/19 06:48 Pulse 70 10/11/19 06:48 Resp 19 10/11/19 06:48 BP 117/78 10/11/19 06:48 Pulse Ox 98 10/11/19 06:48 Intake & Output 10/10/19 10/11/19 10/11/19 18:59 06:59 18:59 Intake Total 650 120 Balance 650 120 Intake: Oral 650 120 Other: # Voids 3 Stool Characteristics Soft Active Medications: Current Medications Acetaminophen (Tylenol) 650 mg PO Q4H PRN PRN Reason: Mild Pain (1-3) Stop: 12/06/19 19:14 Acetaminophen (Tylenol) 650 mg PO Q4H PRN PRN Reason: TEMP ABOVE 101 Stop: 12/09/19 16:12 Alendronate Sodium (Fosamax) 70 mg PO QTHUR@0630 [facility] Stop: 11/12/19 06:29 Last Admin: 10/11/19 06:14 Dose: 70 mg Donepezil HCl (Aricept) 10 mg PO [facility] Last Admin: 10/10/19 20:54 Dose: 10 mg General: demented, thin HEENT: NC/AT, PERRLA, EOMI Neck: Supple, No JVD, No thyromegaly Lungs: CTAB Cardiovascular: RRR, Normal S1, Normal S2, with murmur Abdomen: soft, thin, non-distended, positive bowel sound Extremities: excoriation Neurological: no change Internal Medicine Assmt/Plan - Assessment Assessment: alzheimers dementa elevated chol djd osteoporosis ho old left hip fx - Plan Plan: fall precaution nutritional support cont on calcium supplemetn - resume fosamax will cont to follow dw rn add mvi Nutritional Asmnt/Malnutr-PDOC - Dietary Evaluation Malnutrition Findings (Please click <Entered> for more info): Nutritional Asmnt/Malnutrition Start: 01/04/19 09: 50 Text: Status: Complete Freq: Protocol: Document 01/04/19 14:59 LCHENG (Rec: 01/04/19 15:06 LCHENG [email or web address]) Nutritional Asmnt/Malnutrition Patient General Information Nutritional Screening Moderate Risk Diagnosis psychosis Pertinent Medical Hx/Surgical Hx dementia, DJD, osteoporosis Subjective Information pt seen lying in bed, awake and alert, stated food has beed great. Pt is not a big eater. Encourage to eat balanced meals and pt agreed with it. Per EMR, PO intake 75 -100% Current Diet Order/ Nutrition Support regular Pertinent Medications reviewed Pertinent Labs 12/31 reviewed Nutritional Hx/Data Height 1.65 m Height (Calculated Centimeters) 165.1 Current Weight (lbs) 74.843 kg Weight (Calculated Kilograms) 74.8 Weight (Calculated Grams) 36941.7 [place] Body Weight 125 Body Mass Index (BMI) 27.4 Weight Status Overweight GI Symptoms GI Symptoms None Last BM 01/04 x 2 Difficult in: None Skin Integrity/Comment: intact Current %PO Good (75-100%) Estimated Nutritional Goals BEE in Kcals: Using Current wt Calories/Kcals/Kg 23-27 Kcals Calculated 7860-1683 Protein: Using Current wt Protein g/k.8 Protein Calculated 60 Fluid: ml 1725-1998ml (1ml/kcal) Nutritional Problem No current Nutrition Prob Problem N/A Malnutrition Alert Is there a minimum of two criteria No selected? Query Text:Check all the applicable criteria. A minimum of two criteria are recommended for diagnosis of either severe or non-severe malnutrition. Malnutrition Related to Morbid Obesity Malnutrition related to morbid obesity No Intervention/Recommendation Comments 1. Continue with regular diet as ordered. 2. Monitor PO intake, wt, labs and skin integrity 3. F/U as low risk in 7 days Expected Outcomes/Goals Expected Outcomes/Goals 1. PO intake to meet at least 75% of nutritional needs. 2. Wt stability, skin to remain intact, labs to approach WNL.
--- NOTE | 2019-10-11 19:50 | Progress Notes ---
DATE: 10/11/2019 SUBJECTIVE: Chart was reviewed and the patient interviewed. Also discussed the patient's condition with the staff and reviewed records and labs. The patient is still confused and anxious. The patient also is still in a depressed mood and still pacing up and down the unit in a confused state. The patient also still needs lots of redirections. Otherwise, she is compliant with taking her medications with no side effects. ASSESSMENT: The patient is still confused and considered to be gravely disabled. TREATMENT PLAN: Continue monitoring her behavior and continue to work on placement issue and discharge plans. JOB# [id number]
[2019-10-12] MEDS: Multivitamin w/ Minerals Tab PO SCH (08:30)
--- NOTE | 2019-10-12 13:40 | Progress Notes ---
DATE: SUBJECTIVE: Chart was reviewed and the patient interviewed. Also discussed the patient's condition with the staff and reviewed records and labs. The patient is still in angry and in irritable mood. The patient also is still suspicious and is still paranoid. The patient also is still unable to provide any safe plan for self-care and she still thinks that she is able to go back to her home. Otherwise, the patient is compliant with taking medications with no side effects of medications. ASSESSMENT: The patient is still considered to be gravely disabled and waiting for placement. TREATMENT PLAN: Continue current treatment and medications and continue to monitor psychotropic medications and follow up with discharge plans. [facility]# [id number]
--- NOTE | 2019-10-12 15:43 | Internal Medicine Prog Note ---
Internal Medicine Subjective - Subjective Patient seen and examined:: with staff, chart reviewed Patient is:: awake, verbal, interactive, ambulating, confused Per staff patient has:: no adverse event, no episodes of fall, eating well, tolerating meds Internal Medicine Objective - Results Recent Labs: Laboratory Last Values POC Glucose 112 MG/DL (70 - 105) H 08/11/19 21:00 Triglycerides 162 mg/dL (<150) H 12/31/18 08:04 Cholesterol 234 mg/dL (<200) H 12/31/18 08:04 LDL Cholesterol Direct 155 mg/dL (75-193) 12/31/18 08:04 HDL Cholesterol 62 mg/dL (23-92) 12/31/18 08:04 - Physical Exam Vitals and I&O: Vital Signs Temp 98.3 F 10/12/19 14:02 Pulse 68 10/12/19 14:02 Resp 18 10/12/19 14:02 BP 97/65 10/12/19 14:02 Pulse Ox 99 10/12/19 14:02 Intake & Output 10/11/19 10/12/19 10/12/19 18:59 06:59 18:59 Intake Total 120 120 Balance 120 120 Intake: Oral 120 120 Other: # Voids 2 2 # Bowel Movements 0 0 Stool Characteristics Soft Active Medications: Current Medications Acetaminophen (Tylenol) 650 mg PO Q4H PRN PRN Reason: Mild Pain (1-3) Stop: 12/06/19 19:14 Acetaminophen (Tylenol) 650 mg PO Q4H PRN PRN Reason: TEMP ABOVE 101 Stop: 12/09/19 16:12 Alendronate Sodium (Fosamax) 70 mg PO QTHUR@0630 [facility] Stop: 11/12/19 06:29 Last Admin: 10/11/19 06:14 Dose: 70 mg Donepezil HCl (Aricept) 10 mg PO [facility] Last Admin: 10/11/19 20:39 Dose: 10 mg General: demented, thin HEENT: NC/AT, PERRLA, EOMI Neck: Supple, No JVD, No thyromegaly Lungs: CTAB Cardiovascular: RRR, Normal S1, Normal S2, with murmur Abdomen: soft, thin, non-distended, positive bowel sound Extremities: excoriation Neurological: no change Internal Medicine Assmt/Plan - Assessment Assessment: alzheimers dementa elevated chol djd osteoporosis ho old left hip fx - Plan Plan: fall precaution nutritional support cont on calcium supplemetn - resume fosamax will cont to follow dw rn add mvi Nutritional Asmnt/Malnutr-PDOC - Dietary Evaluation Malnutrition Findings (Please click <Entered> for more info): Nutritional Asmnt/Malnutrition Start: 01/04/19 09: 50 Text: Status: Complete Freq: Protocol: Document 01/04/19 14:59 LCHENG (Rec: 01/04/19 15:06 LCHENG [email or web address]) Nutritional Asmnt/Malnutrition Patient General Information Nutritional Screening Moderate Risk Diagnosis psychosis Pertinent Medical Hx/Surgical Hx dementia, DJD, osteoporosis Subjective Information pt seen lying in bed, awake and alert, stated food has beed great. Pt is not a big eater. Encourage to eat balanced meals and pt agreed with it. Per EMR, PO intake 75 -100% Current Diet Order/ Nutrition Support regular Pertinent Medications reviewed Pertinent Labs 12/31 reviewed Nutritional Hx/Data Height 1.65 m Height (Calculated Centimeters) 165.1 Current Weight (lbs) 74.843 kg Weight (Calculated Kilograms) 74.8 Weight (Calculated Grams) 85134.7 [place] Body Weight 125 Body Mass Index (BMI) 27.4 Weight Status Overweight GI Symptoms GI Symptoms None Last BM 01/04 x 2 Difficult in: None Skin Integrity/Comment: intact Current %PO Good (75-100%) Estimated Nutritional Goals BEE in Kcals: Using Current wt Calories/Kcals/Kg 23-27 Kcals Calculated 7439-1232 Protein: Using Current wt Protein g/k.8 Protein Calculated 60 Fluid: ml 1725-1998ml (1ml/kcal) Nutritional Problem No current Nutrition Prob Problem N/A Malnutrition Alert Is there a minimum of two criteria No selected? Query Text:Check all the applicable criteria. A minimum of two criteria are recommended for diagnosis of either severe or non-severe malnutrition. Malnutrition Related to Morbid Obesity Malnutrition related to morbid obesity No Intervention/Recommendation Comments 1. Continue with regular diet as ordered. 2. Monitor PO intake, wt, labs and skin integrity 3. F/U as low risk in 7 days Expected Outcomes/Goals Expected Outcomes/Goals 1. PO intake to meet at least 75% of nutritional needs. 2. Wt stability, skin to remain intact, labs to approach WNL.
[2019-10-13] MEDS: Multivitamin w/ Minerals Tab PO SCH (08:41)
--- NOTE | 2019-10-13 13:55 | Internal Medicine Prog Note ---
Internal Medicine Subjective - Subjective Patient seen and examined:: with staff, chart reviewed Patient is:: awake, verbal, interactive, ambulating, confused Per staff patient has:: no adverse event, no episodes of fall, eating well, tolerating meds Internal Medicine Objective - Results Recent Labs: Laboratory Last Values POC Glucose 112 MG/DL (70 - 105) H 08/11/19 21:00 Triglycerides 162 mg/dL (<150) H 12/31/18 08:04 Cholesterol 234 mg/dL (<200) H 12/31/18 08:04 LDL Cholesterol Direct 155 mg/dL (75-193) 12/31/18 08:04 HDL Cholesterol 62 mg/dL (23-92) 12/31/18 08:04 - Physical Exam Vitals and I&O: Vital Signs Temp 96.8 F 10/13/19 06:37 Pulse 68 10/13/19 06:37 Resp 18 10/13/19 06:37 BP 121/76 10/13/19 06:37 Pulse Ox 97 10/13/19 06:37 Intake & Output 10/12/19 10/13/19 10/13/19 18:59 06:59 18:59 Intake Total 120 240 Balance 120 240 Intake: Oral 120 240 Other: # Voids 2 1 # Bowel Movements 0 Active Medications: Current Medications Acetaminophen (Tylenol) 650 mg PO Q4H PRN PRN Reason: Mild Pain (1-3) Stop: 12/06/19 19:14 Acetaminophen (Tylenol) 650 mg PO Q4H PRN PRN Reason: TEMP ABOVE 101 Stop: 12/09/19 16:12 Alendronate Sodium (Fosamax) 70 mg PO QTHUR@0630 [facility] Stop: 11/12/19 06:29 Last Admin: 10/11/19 06:14 Dose: 70 mg Donepezil HCl (Aricept) 10 mg PO HS [facility] Last Admin: 10/12/19 20:44 Dose: 10 mg General: demented, thin HEENT: NC/AT, PERRLA, EOMI Neck: Supple, No JVD, No thyromegaly Lungs: CTAB Cardiovascular: RRR, Normal S1, Normal S2, with murmur Abdomen: soft, thin, non-distended, positive bowel sound Extremities: excoriation Neurological: no change Internal Medicine Assmt/Plan - Assessment Assessment: alzheimers dementa elevated chol djd osteoporosis ho old left hip fx - Plan Plan: fall precaution nutritional support cont on calcium supplemetn - resume fosamax will cont to follow dw rn add mvi Nutritional Asmnt/Malnutr-PDOC - Dietary Evaluation Malnutrition Findings (Please click <Entered> for more info): Nutritional Asmnt/Malnutrition Start: 01/04/19 09: 50 Text: Status: Complete Freq: Protocol: Document 01/04/19 14:59 LCHENG (Rec: 01/04/19 15:06 LCHENG [email or web address]) Nutritional Asmnt/Malnutrition Patient General Information Nutritional Screening Moderate Risk Diagnosis psychosis Pertinent Medical Hx/Surgical Hx dementia, DJD, osteoporosis Subjective Information pt seen lying in bed, awake and alert, stated food has beed great. Pt is not a big eater. Encourage to eat balanced meals and pt agreed with it. Per EMR, PO intake 75 -100% Current Diet Order/ Nutrition Support regular Pertinent Medications reviewed Pertinent Labs 12/31 reviewed Nutritional Hx/Data Height 1.65 m Height (Calculated Centimeters) 165.1 Current Weight (lbs) 74.843 kg Weight (Calculated Kilograms) 74.8 Weight (Calculated Grams) 74599.7 [place] Body Weight 125 Body Mass Index (BMI) 27.4 Weight Status Overweight GI Symptoms GI Symptoms None Last BM 01/04 x 2 Difficult in: None Skin Integrity/Comment: intact Current %PO Good (75-100%) Estimated Nutritional Goals BEE in Kcals: Using Current wt Calories/Kcals/Kg 23-27 Kcals Calculated 3420-6069 Protein: Using Current wt Protein g/k.8 Protein Calculated 60 Fluid: ml 1725-1998ml (1ml/kcal) Nutritional Problem No current Nutrition Prob Problem N/A Malnutrition Alert Is there a minimum of two criteria No selected? Query Text:Check all the applicable criteria. A minimum of two criteria are recommended for diagnosis of either severe or non-severe malnutrition. Malnutrition Related to Morbid Obesity Malnutrition related to morbid obesity No Intervention/Recommendation Comments 1. Continue with regular diet as ordered. 2. Monitor PO intake, wt, labs and skin integrity 3. F/U as low risk in 7 days Expected Outcomes/Goals Expected Outcomes/Goals 1. PO intake to meet at least 75% of nutritional needs. 2. Wt stability, skin to remain intact, labs to approach WNL.
--- NOTE | 2019-10-13 21:14 | Progress Notes ---
DATE: 10/13/2019 PSYCHIATRIC PROGRESS NOTE SUBJECTIVE: Chart was reviewed and the patient interviewed. Also discussed the patient's condition with the staff and reviewed records and labs. The patient is still pleasantly confused. The patient also is still wandering around the unit in a confused state. She also still needs redirections. On the other hand, patient is exhibiting no behavioral issues and she is compliant with taking her medications. Also waiting for placement. ASSESSMENT: The patient is still considered to be gravely disabled. TREATMENT PLAN: Continue monitoring behavior and condition closely. Also, continue working on placement issue and discharge plans. JOB# [id number]
[2019-10-14] MEDS: Multivitamin w/ Minerals Tab PO SCH (09:04)
--- NOTE | 2019-10-14 10:50 | Progress Notes ---
DATE: 10/14/2019 PSYCHIATRIC PROGRESS NOTE Chart was reviewed and the patient interviewed. Also discussed the patient's condition with the staff and reviewed records and labs. The patient is still pleasantly confused. The patient also still has episodes of getting frustrated with other patients when they are screaming or yelling or making noises bothered her. She is reacting appropriately and no aggressive behavior. The patient also is still pleasantly confused and still wants to go home, but at the same time, placement is an issue. ASSESSMENT: The patient is still gravely disabled and waiting for placement. TREATMENT PLAN: Continue current medications and continue monitoring her behavior and her condition closely. Also, continue to work on placement issue. [facility]# [id number]
--- NOTE | 2019-10-14 13:46 | Internal Medicine Prog Note ---
Internal Medicine Subjective - Subjective Patient seen and examined:: with staff, chart reviewed Patient is:: awake, verbal, interactive, ambulating, confused Per staff patient has:: no adverse event, no episodes of fall, eating well, tolerating meds Internal Medicine Objective - Results Recent Labs: Laboratory Last Values POC Glucose 112 MG/DL (70 - 105) H 08/11/19 21:00 Triglycerides 162 mg/dL (<150) H 12/31/18 08:04 Cholesterol 234 mg/dL (<200) H 12/31/18 08:04 LDL Cholesterol Direct 155 mg/dL (75-193) 12/31/18 08:04 HDL Cholesterol 62 mg/dL (23-92) 12/31/18 08:04 - Physical Exam Vitals and I&O: Vital Signs Temp 98.0 F 10/14/19 06:03 Pulse 86 10/14/19 06:03 Resp 19 10/14/19 06:03 BP 101/61 10/14/19 06:03 Pulse Ox 97 10/14/19 06:03 Intake & Output 10/13/19 10/14/19 10/14/19 18:59 06:59 18:59 Intake Total 300 Balance 300 Intake: Oral 300 Other: # Voids 1 # Bowel Movements 0 Active Medications: Current Medications Acetaminophen (Tylenol) 650 mg PO Q4H PRN PRN Reason: Mild Pain (1-3) Stop: 12/06/19 19:14 Acetaminophen (Tylenol) 650 mg PO Q4H PRN PRN Reason: TEMP ABOVE 101 Stop: 12/09/19 16:12 Alendronate Sodium (Fosamax) 70 mg PO QTHUR@0630 [facility] Stop: 11/12/19 06:29 Last Admin: 10/11/19 06:14 Dose: 70 mg Donepezil HCl (Aricept) 10 mg PO [facility] Last Admin: 10/13/19 20:41 Dose: 10 mg General: demented, thin HEENT: NC/AT, PERRLA, EOMI Neck: Supple, No JVD, No thyromegaly Lungs: CTAB Cardiovascular: RRR, Normal S1, Normal S2, with murmur Abdomen: soft, thin, non-distended, positive bowel sound Extremities: excoriation Neurological: no change Internal Medicine Assmt/Plan - Assessment Assessment: alzheimers dementa elevated chol djd osteoporosis ho old left hip fx - Plan Plan: fall precaution nutritional support cont on calcium supplemetn - resume fosamax will cont to follow dw rn add mvi Nutritional Asmnt/Malnutr-PDOC - Dietary Evaluation Malnutrition Findings (Please click <Entered> for more info): Nutritional Asmnt/Malnutrition Start: 01/04/19 09: 50 Text: Status: Complete Freq: Protocol: Document 01/04/19 14:59 LCHENG (Rec: 01/04/19 15:06 LCHENG [email or web address]) Nutritional Asmnt/Malnutrition Patient General Information Nutritional Screening Moderate Risk Diagnosis psychosis Pertinent Medical Hx/Surgical Hx dementia, DJD, osteoporosis Subjective Information pt seen lying in bed, awake and alert, stated food has beed great. Pt is not a big eater. Encourage to eat balanced meals and pt agreed with it. Per EMR, PO intake 75 -100% Current Diet Order/ Nutrition Support regular Pertinent Medications reviewed Pertinent Labs 12/31 reviewed Nutritional Hx/Data Height 1.65 m Height (Calculated Centimeters) 165.1 Current Weight (lbs) 74.843 kg Weight (Calculated Kilograms) 74.8 Weight (Calculated Grams) 30543.7 [place] Body Weight 125 Body Mass Index (BMI) 27.4 Weight Status Overweight GI Symptoms GI Symptoms None Last BM 01/04 x 2 Difficult in: None Skin Integrity/Comment: intact Current %PO Good (75-100%) Estimated Nutritional Goals BEE in Kcals: Using Current wt Calories/Kcals/Kg 23-27 Kcals Calculated 9583-3204 Protein: Using Current wt Protein g/k.8 Protein Calculated 60 Fluid: ml 1725-1998ml (1ml/kcal) Nutritional Problem No current Nutrition Prob Problem N/A Malnutrition Alert Is there a minimum of two criteria No selected? Query Text:Check all the applicable criteria. A minimum of two criteria are recommended for diagnosis of either severe or non-severe malnutrition. Malnutrition Related to Morbid Obesity Malnutrition related to morbid obesity No Intervention/Recommendation Comments 1. Continue with regular diet as ordered. 2. Monitor PO intake, wt, labs and skin integrity 3. F/U as low risk in 7 days Expected Outcomes/Goals Expected Outcomes/Goals 1. PO intake to meet at least 75% of nutritional needs. 2. Wt stability, skin to remain intact, labs to approach WNL.
[2019-10-15] MEDS: Multivitamin w/ Minerals Tab PO SCH (09:21)
--- NOTE | 2019-10-15 13:47 | Internal Medicine Prog Note ---
Internal Medicine Subjective - Subjective Patient seen and examined:: with staff, chart reviewed Patient is:: awake, verbal, interactive, ambulating, confused Per staff patient has:: no adverse event, no episodes of fall, eating well, tolerating meds Internal Medicine Objective - Results Recent Labs: Laboratory Last Values POC Glucose 112 MG/DL (70 - 105) H 08/11/19 21:00 Triglycerides 162 mg/dL (<150) H 12/31/18 08:04 Cholesterol 234 mg/dL (<200) H 12/31/18 08:04 LDL Cholesterol Direct 155 mg/dL (75-193) 12/31/18 08:04 HDL Cholesterol 62 mg/dL (23-92) 12/31/18 08:04 - Physical Exam Vitals and I&O: Vital Signs Temp 98.1 F 10/15/19 06:20 Pulse 76 10/15/19 06:20 Resp 18 10/15/19 08:00 BP 99/59 10/15/19 06:20 Pulse Ox 98 10/15/19 06:20 Intake & Output 10/14/19 10/15/19 10/15/19 18:59 06:59 18:59 Intake Total 900 240 Balance 900 240 Intake: Oral 900 240 Other: # Voids 4 2 # Bowel Movements 1 Active Medications: Current Medications Acetaminophen (Tylenol) 650 mg PO Q4H PRN PRN Reason: Mild Pain (1-3) Stop: 12/06/19 19:14 Acetaminophen (Tylenol) 650 mg PO Q4H PRN PRN Reason: TEMP ABOVE 101 Stop: 12/09/19 16:12 Alendronate Sodium (Fosamax) 70 mg PO QTHUR@0630 [facility] Stop: 11/12/19 06:29 Last Admin: 10/11/19 06:14 Dose: 70 mg Donepezil HCl (Aricept) 10 mg PO [facility] Last Admin: 10/14/19 20:27 Dose: 10 mg General: demented, thin HEENT: NC/AT, PERRLA, EOMI Neck: Supple, No JVD, No thyromegaly Lungs: CTAB Cardiovascular: RRR, Normal S1, Normal S2, with murmur Abdomen: soft, thin, non-distended, positive bowel sound Extremities: excoriation Neurological: no change Internal Medicine Assmt/Plan - Assessment Assessment: alzheimers dementa elevated chol djd osteoporosis ho old left hip fx - Plan Plan: fall precaution nutritional support cont on calcium supplemetn - resume fosamax will cont to follow dw rn add mvi Nutritional Asmnt/Malnutr-PDOC - Dietary Evaluation Malnutrition Findings (Please click <Entered> for more info): Nutritional Asmnt/Malnutrition Start: 01/04/19 09: 50 Text: Status: Complete Freq: Protocol: Document 01/04/19 14:59 LCHENG (Rec: 01/04/19 15:06 LCHENG [email or web address]) Nutritional Asmnt/Malnutrition Patient General Information Nutritional Screening Moderate Risk Diagnosis psychosis Pertinent Medical Hx/Surgical Hx dementia, DJD, osteoporosis Subjective Information pt seen lying in bed, awake and alert, stated food has beed great. Pt is not a big eater. Encourage to eat balanced meals and pt agreed with it. Per EMR, PO intake 75 -100% Current Diet Order/ Nutrition Support regular Pertinent Medications reviewed Pertinent Labs 12/31 reviewed Nutritional Hx/Data Height 1.65 m Height (Calculated Centimeters) 165.1 Current Weight (lbs) 74.843 kg Weight (Calculated Kilograms) 74.8 Weight (Calculated Grams) 81488.7 [place] Body Weight 125 Body Mass Index (BMI) 27.4 Weight Status Overweight GI Symptoms GI Symptoms None Last BM 01/04 x 2 Difficult in: None Skin Integrity/Comment: intact Current %PO Good (75-100%) Estimated Nutritional Goals BEE in Kcals: Using Current wt Calories/Kcals/Kg 23-27 Kcals Calculated 9051-1206 Protein: Using Current wt Protein g/k.8 Protein Calculated 60 Fluid: ml 1725-1998ml (1ml/kcal) Nutritional Problem No current Nutrition Prob Problem N/A Malnutrition Alert Is there a minimum of two criteria No selected? Query Text:Check all the applicable criteria. A minimum of two criteria are recommended for diagnosis of either severe or non-severe malnutrition. Malnutrition Related to Morbid Obesity Malnutrition related to morbid obesity No Intervention/Recommendation Comments 1. Continue with regular diet as ordered. 2. Monitor PO intake, wt, labs and skin integrity 3. F/U as low risk in 7 days Expected Outcomes/Goals Expected Outcomes/Goals 1. PO intake to meet at least 75% of nutritional needs. 2. Wt stability, skin to remain intact, labs to approach WNL.
--- NOTE | 2019-10-15 20:17 | Progress Notes ---
DATE: 10/15/2019 SUBJECTIVE: Chart was reviewed and the patient interviewed. Also discussed the patient's condition with the staff and reviewed the records and labs. "I am just here." The patient also is calm and cooperative with her treatment, but she is forgetful and needs redirections. She is frustrated with the long hospital stay. I discussed with drug abuse social worker and the treatment team her condition and situation and still waiting for further recommendations from the court in regards to her discharge plans. ASSESSMENT: The patient is still considered to be gravely disabled. TREATMENT PLAN: Continue current treatment and current medications. Also, continue adjusting psychotropic medications and work on behavioral modification and placement issue. JOB# [id number]
[2019-10-16] MEDS: Multivitamin w/ Minerals Tab PO SCH (08:31)
--- NOTE | 2019-10-16 12:34 | Internal Medicine Prog Note ---
Internal Medicine Subjective - Subjective Patient seen and examined:: with staff, chart reviewed Patient is:: awake, verbal, interactive, ambulating, confused Per staff patient has:: no adverse event, no episodes of fall, eating well, tolerating meds Internal Medicine Objective - Results Recent Labs: Laboratory Last Values POC Glucose 112 MG/DL (70 - 105) H 08/11/19 21:00 Triglycerides 162 mg/dL (<150) H 12/31/18 08:04 Cholesterol 234 mg/dL (<200) H 12/31/18 08:04 LDL Cholesterol Direct 155 mg/dL (75-193) 12/31/18 08:04 HDL Cholesterol 62 mg/dL (23-92) 12/31/18 08:04 - Physical Exam Vitals and I&O: Vital Signs Temp 97.2 F 10/16/19 05:59 Pulse 71 10/16/19 05:59 Resp 17 10/16/19 08:00 BP 115/66 10/16/19 05:59 Pulse Ox 95 10/16/19 05:59 Intake & Output 10/15/19 10/16/19 10/16/19 18:59 06:59 18:59 Intake Total 950 240 Balance 950 240 Intake: Oral 950 240 Other: # Voids 2 # Bowel Movements 1 Active Medications: Current Medications Acetaminophen (Tylenol) 650 mg PO Q4H PRN PRN Reason: Mild Pain (1-3) Stop: 12/06/19 19:14 Acetaminophen (Tylenol) 650 mg PO Q4H PRN PRN Reason: TEMP ABOVE 101 Stop: 12/09/19 16:12 Alendronate Sodium (Fosamax) 70 mg PO QTHUR@0630 [facility] Stop: 11/12/19 06:29 Last Admin: 10/11/19 06:14 Dose: 70 mg Donepezil HCl (Aricept) 10 mg PO [facility] Last Admin: 10/15/19 20:31 Dose: 10 mg General: demented, thin HEENT: NC/AT, PERRLA, EOMI Neck: Supple, No JVD, No thyromegaly Lungs: CTAB Cardiovascular: RRR, Normal S1, Normal S2, with murmur Abdomen: soft, thin, non-distended, positive bowel sound Extremities: excoriation Neurological: no change Internal Medicine Assmt/Plan - Assessment Assessment: alzheimers dementa elevated chol djd osteoporosis ho old left hip fx - Plan Plan: fall precaution nutritional support cont on calcium supplemetn - resume fosamax will cont to follow dw rn add mvi Nutritional Asmnt/Malnutr-PDOC - Dietary Evaluation Malnutrition Findings (Please click <Entered> for more info): Nutritional Asmnt/Malnutrition Start: 01/04/19 09: 50 Text: Status: Complete Freq: Protocol: Document 01/04/19 14:59 LCHENG (Rec: 01/04/19 15:06 LCHENG [email or web address]) Nutritional Asmnt/Malnutrition Patient General Information Nutritional Screening Moderate Risk Diagnosis psychosis Pertinent Medical Hx/Surgical Hx dementia, DJD, osteoporosis Subjective Information pt seen lying in bed, awake and alert, stated food has beed great. Pt is not a big eater. Encourage to eat balanced meals and pt agreed with it. Per EMR, PO intake 75 -100% Current Diet Order/ Nutrition Support regular Pertinent Medications reviewed Pertinent Labs 12/31 reviewed Nutritional Hx/Data Height 1.65 m Height (Calculated Centimeters) 165.1 Current Weight (lbs) 74.843 kg Weight (Calculated Kilograms) 74.8 Weight (Calculated Grams) 28456.7 [place] Body Weight 125 Body Mass Index (BMI) 27.4 Weight Status Overweight GI Symptoms GI Symptoms None Last BM 01/04 x 2 Difficult in: None Skin Integrity/Comment: intact Current %PO Good (75-100%) Estimated Nutritional Goals BEE in Kcals: Using Current wt Calories/Kcals/Kg 23-27 Kcals Calculated 9100-9101 Protein: Using Current wt Protein g/k.8 Protein Calculated 60 Fluid: ml 1725-1998ml (1ml/kcal) Nutritional Problem No current Nutrition Prob Problem N/A Malnutrition Alert Is there a minimum of two criteria No selected? Query Text:Check all the applicable criteria. A minimum of two criteria are recommended for diagnosis of either severe or non-severe malnutrition. Malnutrition Related to Morbid Obesity Malnutrition related to morbid obesity No Intervention/Recommendation Comments 1. Continue with regular diet as ordered. 2. Monitor PO intake, wt, labs and skin integrity 3. F/U as low risk in 7 days Expected Outcomes/Goals Expected Outcomes/Goals 1. PO intake to meet at least 75% of nutritional needs. 2. Wt stability, skin to remain intact, labs to approach WNL.
--- NOTE | 2019-10-16 21:19 | Progress Notes ---
DATE: 10/16/2019 SUBJECTIVE: Chart reviewed and the patient interviewed. Also discussed the patient's condition with the staff and reviewed records and labs. "I want to go home." The patient continued to be anxious and she is still in a depressed mood. The patient also is still confused and she still thinks that she is waiting to go to her home. The patient also still needs redirections. Otherwise, the patient continued to comply with taking her medications and no side effects of medications. ASSESSMENT: The patient is still confused and is considered to be gravely disabled. 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 At the same time, we will continue working on the patient's condition and monitoring her medications and working on discharge plans. JOB# [id number]
--- NOTE | 2019-10-17 08:33 | Progress Notes ---
DATE: 10/17/2019 SUBJECTIVE: Chart reviewed and the patient interviewed. Also discussed the patient's condition with the staff and reviewed records and labs. The patient is still pleasantly confused and is still wandering around the unit in a confused state, but easier to redirect her. The patient also is not showing any signs or symptoms of irritability and she is calm and easy to redirect her. She is still pleasantly confused and asking for "I wanna to go home." She still has difficulty accepting the fact that she is unable to return to her home. The patient's gait is steady, was using the walker and she was going around the unit with walker. Vital signs are stable and no new labs available for review. MENTAL STATUS EXAMINATION: Appropriately dressed. Calm and cooperative. Confused. Unable to carry out coherent conversation. ASSESSMENT: The patient is still considered to be gravely disabled and waiting for placement. TREATMENT PLAN: Continue current medications and observation. Also waiting for court order to release her funds in order to have placement. Discussed with the patient placing her in [facility]. ESTIMATED LENGTH OF STAY: Awaiting for court order and the patient can be released anytime once her funds are released. REASON FOR CONTINUED HOSPITAL STAY: The patient still has no place to live and waiting for placement. JOB# [id number]
[2019-10-17] MEDS: Multivitamin w/ Minerals Tab PO SCH (09:00)
--- NOTE | 2019-10-17 12:49 | Internal Medicine Prog Note ---
Internal Medicine Subjective - Subjective Patient seen and examined:: with staff, chart reviewed Patient is:: awake, verbal, interactive, ambulating, confused Per staff patient has:: no adverse event, no episodes of fall, eating well, tolerating meds Internal Medicine Objective - Results Recent Labs: Laboratory Last Values POC Glucose 112 MG/DL (70 - 105) H 08/11/19 21:00 Triglycerides 162 mg/dL (<150) H 12/31/18 08:04 Cholesterol 234 mg/dL (<200) H 12/31/18 08:04 LDL Cholesterol Direct 155 mg/dL (75-193) 12/31/18 08:04 HDL Cholesterol 62 mg/dL (23-92) 12/31/18 08:04 - Physical Exam Vitals and I&O: Vital Signs Temp 97.2 F 10/17/19 05:29 Pulse 60 10/17/19 05:29 Resp 20 10/17/19 08:00 BP 110/69 10/17/19 05:29 Pulse Ox 93 10/17/19 05:29 Intake & Output 10/16/19 10/17/19 10/17/19 18:59 06:59 18:59 Intake Total 600 Balance 600 Intake: Oral 600 Other: # Voids 4 3 # Bowel Movements 1 0 Active Medications: Current Medications Acetaminophen (Tylenol) 650 mg PO Q4H PRN PRN Reason: Mild Pain (1-3) Stop: 12/06/19 19:14 Acetaminophen (Tylenol) 650 mg PO Q4H PRN PRN Reason: TEMP ABOVE 101 Stop: 12/09/19 16:12 Alendronate Sodium (Fosamax) 70 mg PO QTHUR@0630 [facility] Stop: 11/12/19 06:29 Last Admin: 10/11/19 06:14 Dose: 70 mg Donepezil HCl (Aricept) 10 mg PO [facility] Last Admin: 10/16/19 20:31 Dose: 10 mg General: demented, thin HEENT: NC/AT, PERRLA, EOMI Neck: Supple, No JVD, No thyromegaly Lungs: CTAB Cardiovascular: RRR, Normal S1, Normal S2, with murmur Abdomen: soft, thin, non-distended, positive bowel sound Extremities: excoriation Neurological: no change Internal Medicine Assmt/Plan - Assessment Assessment: alzheimers dementa elevated chol djd osteoporosis ho old left hip fx - Plan Plan: fall precaution nutritional support cont on calcium supplemetn - resume fosamax will cont to follow dw rn add mvi Nutritional Asmnt/Malnutr-PDOC - Dietary Evaluation Malnutrition Findings (Please click <Entered> for more info): Nutritional Asmnt/Malnutrition Start: 01/04/19 09: 50 Text: Status: Complete Freq: Protocol: Document 01/04/19 14:59 LCHENG (Rec: 01/04/19 15:06 LCHENG [email or web address]) Nutritional Asmnt/Malnutrition Patient General Information Nutritional Screening Moderate Risk Diagnosis psychosis Pertinent Medical Hx/Surgical Hx dementia, DJD, osteoporosis Subjective Information pt seen lying in bed, awake and alert, stated food has beed great. Pt is not a big eater. Encourage to eat balanced meals and pt agreed with it. Per EMR, PO intake 75 -100% Current Diet Order/ Nutrition Support regular Pertinent Medications reviewed Pertinent Labs 12/31 reviewed Nutritional Hx/Data Height 1.65 m Height (Calculated Centimeters) 165.1 Current Weight (lbs) 74.843 kg Weight (Calculated Kilograms) 74.8 Weight (Calculated Grams) 74483.7 [place] Body Weight 125 Body Mass Index (BMI) 27.4 Weight Status Overweight GI Symptoms GI Symptoms None Last BM 01/04 x 2 Difficult in: None Skin Integrity/Comment: intact Current %PO Good (75-100%) Estimated Nutritional Goals BEE in Kcals: Using Current wt Calories/Kcals/Kg 23-27 Kcals Calculated 7152-6634 Protein: Using Current wt Protein g/k.8 Protein Calculated 60 Fluid: ml 1725-1998ml (1ml/kcal) Nutritional Problem No current Nutrition Prob Problem N/A Malnutrition Alert Is there a minimum of two criteria No selected? Query Text:Check all the applicable criteria. A minimum of two criteria are recommended for diagnosis of either severe or non-severe malnutrition. Malnutrition Related to Morbid Obesity Malnutrition related to morbid obesity No Intervention/Recommendation Comments 1. Continue with regular diet as ordered. 2. Monitor PO intake, wt, labs and skin integrity 3. F/U as low risk in 7 days Expected Outcomes/Goals Expected Outcomes/Goals 1. PO intake to meet at least 75% of nutritional needs. 2. Wt stability, skin to remain intact, labs to approach WNL.
[2019-10-18] MEDS: Multivitamin w/ Minerals Tab PO SCH (09:03)
--- NOTE | 2019-10-18 12:53 | Internal Medicine Prog Note ---
Internal Medicine Subjective - Subjective Patient seen and examined:: with staff, chart reviewed, other (ambulating ok) Patient is:: awake, verbal, interactive, ambulating, confused Per staff patient has:: no adverse event, no episodes of fall, eating well, tolerating meds Internal Medicine Objective - Results Recent Labs: Laboratory Last Values POC Glucose 112 MG/DL (70 - 105) H 08/11/19 21:00 Triglycerides 162 mg/dL (<150) H 12/31/18 08:04 Cholesterol 234 mg/dL (<200) H 12/31/18 08:04 LDL Cholesterol Direct 155 mg/dL (75-193) 12/31/18 08:04 HDL Cholesterol 62 mg/dL (23-92) 12/31/18 08:04 - Physical Exam Vitals and I&O: Vital Signs Temp 97.2 F 10/18/19 05:25 Pulse 76 10/18/19 05:25 Resp 18 10/18/19 05:25 BP 131/79 10/18/19 05:25 Pulse Ox 95 10/18/19 05:25 Intake & Output 10/17/19 10/18/19 10/18/19 18:59 06:59 18:59 Intake Total 360 Balance 360 Intake: Oral 360 Other: # Voids 3 # Bowel Movements 0 Active Medications: Current Medications Acetaminophen (Tylenol) 650 mg PO Q4H PRN PRN Reason: Mild Pain (1-3) Stop: 12/06/19 19:14 Acetaminophen (Tylenol) 650 mg PO Q4H PRN PRN Reason: TEMP ABOVE 101 Stop: 12/09/19 16:12 Alendronate Sodium (Fosamax) 70 mg PO QTHUR@0630 [facility] Stop: 11/12/19 06:29 Last Admin: 10/18/19 06:30 Dose: 70 mg Donepezil HCl (Aricept) 10 mg PO HS [facility] Last Admin: 10/17/19 20:42 Dose: 10 mg General: demented, thin HEENT: NC/AT, PERRLA, EOMI Neck: Supple, No JVD, No thyromegaly Lungs: CTAB Cardiovascular: RRR, Normal S1, Normal S2, with murmur Abdomen: soft, thin, non-distended, positive bowel sound Extremities: excoriation Neurological: no change Internal Medicine Assmt/Plan - Assessment Assessment: alzheimers dementia elevated chol djd osteoporosis ho old left hip fx - Plan Plan: medically stable fall precaution nutritional support cont on calcium supplemetn - resume fosamax will cont to follow tom rn Nutritional Asmnt/Malnutr-PDOC - Dietary Evaluation Malnutrition Findings (Please click <Entered> for more info): Nutritional Asmnt/Malnutrition Start: 01/04/19 09: 50 Text: Status: Complete Freq: Protocol: Document 01/04/19 14:59 TARIK (Rec: 01/04/19 15:06 LCHENG [email or web address]) Nutritional Asmnt/Malnutrition Patient General Information Nutritional Screening Moderate Risk Diagnosis psychosis Pertinent Medical Hx/Surgical Hx dementia, DJD, osteoporosis Subjective Information pt seen lying in bed, awake and alert, stated food has beed great. Pt is not a big eater. Encourage to eat balanced meals and pt agreed with it. Per EMR, PO intake 75 -100% Current Diet Order/ Nutrition Support regular Pertinent Medications reviewed Pertinent Labs 12/31 reviewed Nutritional Hx/Data Height 1.65 m Height (Calculated Centimeters) 165.1 Current Weight (lbs) 74.843 kg Weight (Calculated Kilograms) 74.8 Weight (Calculated Grams) 37368.7 [place] Body Weight 125 Body Mass Index (BMI) 27.4 Weight Status Overweight GI Symptoms GI Symptoms None Last BM 01/04 x 2 Difficult in: None Skin Integrity/Comment: intact Current %PO Good (75-100%) Estimated Nutritional Goals BEE in Kcals: Using Current wt Calories/Kcals/Kg 23-27 Kcals Calculated 7027-2550 Protein: Using Current wt Protein g/k.8 Protein Calculated 60 Fluid: ml 1725-1998ml (1ml/kcal) Nutritional Problem No current Nutrition Prob Problem N/A Malnutrition Alert Is there a minimum of two criteria No selected? Query Text:Check all the applicable criteria. A minimum of two criteria are recommended for diagnosis of either severe or non-severe malnutrition. Malnutrition Related to Morbid Obesity Malnutrition related to morbid obesity No Intervention/Recommendation Comments 1. Continue with regular diet as ordered. 2. Monitor PO intake, wt, labs and skin integrity 3. F/U as low risk in 7 days Expected Outcomes/Goals Expected Outcomes/Goals 1. PO intake to meet at least 75% of nutritional needs. 2. Wt stability, skin to remain intact, labs to approach WNL.
[2019-10-19] MEDS: Multivitamin w/ Minerals Tab PO SCH (08:28)
--- NOTE | 2019-10-19 12:09 | Progress Notes ---
DATE: 10/19/2019 Case was discussed with staff of the patient, reviewed records. The patient continues to be confused, continues to be unpredictable, impulsive, needing redirection. Continues to have poor insight, unable to make safe plan for self-care. The staff is waiting for the court to release her funds, so she can be placed. No side effects with the medication, no sedation, no nausea. We will continue outpatient group therapy, milieu therapy, and adjust medication as needed. JOB# [id number]
--- NOTE | 2019-10-19 12:42 | Internal Medicine Prog Note ---
Internal Medicine Subjective - Subjective Patient seen and examined:: with staff, chart reviewed Patient is:: awake, verbal, interactive, ambulating, confused Per staff patient has:: no adverse event, no episodes of fall, eating well, tolerating meds Internal Medicine Objective - Results Recent Labs: Laboratory Last Values POC Glucose 112 MG/DL (70 - 105) H 08/11/19 21:00 Triglycerides 162 mg/dL (<150) H 12/31/18 08:04 Cholesterol 234 mg/dL (<200) H 12/31/18 08:04 LDL Cholesterol Direct 155 mg/dL (75-193) 12/31/18 08:04 HDL Cholesterol 62 mg/dL (23-92) 12/31/18 08:04 - Physical Exam Vitals and I&O: Vital Signs Temp 97.2 F 10/19/19 06:04 Pulse 80 10/19/19 06:04 Resp 18 10/19/19 06:04 BP 106/71 10/19/19 06:04 Pulse Ox 97 10/19/19 06:04 Intake & Output 10/18/19 10/19/19 10/19/19 18:59 06:59 18:59 Intake Total 1200 240 Balance 1200 240 Intake: Oral 1200 240 Other: # Voids 1 # Bowel Movements 1 Active Medications: Current Medications Acetaminophen (Tylenol) 650 mg PO Q4H PRN PRN Reason: Mild Pain (1-3) Stop: 12/06/19 19:14 Acetaminophen (Tylenol) 650 mg PO Q4H PRN PRN Reason: TEMP ABOVE 101 Stop: 12/09/19 16:12 Alendronate Sodium (Fosamax) 70 mg PO QTHUR@0630 [facility] Stop: 11/12/19 06:29 Last Admin: 10/18/19 06:30 Dose: 70 mg Donepezil HCl (Aricept) 10 mg PO [facility] Last Admin: 10/18/19 20:26 Dose: 10 mg General: demented, thin HEENT: NC/AT, PERRLA, EOMI Neck: Supple, No JVD, No thyromegaly Lungs: CTAB Cardiovascular: RRR, Normal S1, Normal S2, with murmur Abdomen: soft, thin, non-distended, positive bowel sound Extremities: excoriation Neurological: no change Internal Medicine Assmt/Plan - Assessment Assessment: alzheimers dementia elevated chol djd osteoporosis ho old left hip fx - Plan Plan: medically stable fall precaution nutritional support cont on calcium supplemetn - resume fosamax will cont to follow tom rn Nutritional Asmnt/Malnutr-PDOC - Dietary Evaluation Malnutrition Findings (Please click <Entered> for more info): Nutritional Asmnt/Malnutrition Start: 01/04/19 09: 50 Text: Status: Complete Freq: Protocol: Document 01/04/19 14:59 LCHENG (Rec: 01/04/19 15:06 LCHENG [email or web address]) Nutritional Asmnt/Malnutrition Patient General Information Nutritional Screening Moderate Risk Diagnosis psychosis Pertinent Medical Hx/Surgical Hx dementia, DJD, osteoporosis Subjective Information pt seen lying in bed, awake and alert, stated food has beed great. Pt is not a big eater. Encourage to eat balanced meals and pt agreed with it. Per EMR, PO intake 75 -100% Current Diet Order/ Nutrition Support regular Pertinent Medications reviewed Pertinent Labs 12/31 reviewed Nutritional Hx/Data Height 1.65 m Height (Calculated Centimeters) 165.1 Current Weight (lbs) 74.843 kg Weight (Calculated Kilograms) 74.8 Weight (Calculated Grams) 47122.7 [place] Body Weight 125 Body Mass Index (BMI) 27.4 Weight Status Overweight GI Symptoms GI Symptoms None Last BM 01/04 x 2 Difficult in: None Skin Integrity/Comment: intact Current %PO Good (75-100%) Estimated Nutritional Goals BEE in Kcals: Using Current wt Calories/Kcals/Kg 23-27 Kcals Calculated 0881-2241 Protein: Using Current wt Protein g/k.8 Protein Calculated 60 Fluid: ml 1725-1998ml (1ml/kcal) Nutritional Problem No current Nutrition Prob Problem N/A Malnutrition Alert Is there a minimum of two criteria No selected? Query Text:Check all the applicable criteria. A minimum of two criteria are recommended for diagnosis of either severe or non-severe malnutrition. Malnutrition Related to Morbid Obesity Malnutrition related to morbid obesity No Intervention/Recommendation Comments 1. Continue with regular diet as ordered. 2. Monitor PO intake, wt, labs and skin integrity 3. F/U as low risk in 7 days Expected Outcomes/Goals Expected Outcomes/Goals 1. PO intake to meet at least 75% of nutritional needs. 2. Wt stability, skin to remain intact, labs to approach WNL.
[2019-10-20] MEDS: Multivitamin w/ Minerals Tab PO SCH (08:45)
--- NOTE | 2019-10-20 11:50 | Internal Medicine Prog Note ---
Internal Medicine Subjective - Subjective Service Date: 10/20/19 Patient seen and examined:: with staff Patient is:: awake, verbal, interactive, ambulating, confused Per staff patient has:: no adverse event, no episodes of fall, eating well, tolerating meds Internal Medicine Objective - Results Recent Labs: Laboratory Last Values POC Glucose 112 MG/DL (70 - 105) H 08/11/19 21:00 Triglycerides 162 mg/dL (<150) H 12/31/18 08:04 Cholesterol 234 mg/dL (<200) H 12/31/18 08:04 LDL Cholesterol Direct 155 mg/dL (75-193) 12/31/18 08:04 HDL Cholesterol 62 mg/dL (23-92) 12/31/18 08:04 - Physical Exam Vitals and I&O: Vital Signs Temp 97.9 F 10/20/19 06:13 Pulse 71 10/20/19 06:13 Resp 20 10/20/19 06:13 BP 116/71 10/20/19 06:13 Pulse Ox 97 10/20/19 06:13 Intake & Output 10/19/19 10/20/19 10/20/19 18:59 06:59 18:59 Intake Total 180 Balance 180 Intake: Oral 180 Other: # Voids 3 1 # Bowel Movements 1 0 Active Medications: Current Medications Acetaminophen (Tylenol) 650 mg PO Q4H PRN PRN Reason: Mild Pain (1-3) Stop: 12/06/19 19:14 Acetaminophen (Tylenol) 650 mg PO Q4H PRN PRN Reason: TEMP ABOVE 101 Stop: 12/09/19 16:12 Alendronate Sodium (Fosamax) 70 mg PO QTHUR@0630 [facility] Stop: 11/12/19 06:29 Last Admin: 10/18/19 06:30 Dose: 70 mg Donepezil HCl (Aricept) 10 mg PO HS [facility] Last Admin: 10/19/19 20:17 Dose: 10 mg General: demented, thin HEENT: NC/AT, PERRLA, EOMI Neck: Supple, No JVD, No thyromegaly Lungs: CTAB Cardiovascular: RRR, Normal S1, Normal S2, with murmur Abdomen: soft, thin, non-distended, positive bowel sound Extremities: excoriation Neurological: no change Internal Medicine Assmt/Plan - Assessment Assessment: alzheimers dementa elevated chol djd osteoporosis - Plan Plan: fall precaution nutritional support cont on calcium supplement will cont to follow dw rn add mvi placement ongoing Nutritional Asmnt/Malnutr-PDOC - Dietary Evaluation Malnutrition Findings (Please click <Entered> for more info): Nutritional Asmnt/Malnutrition Start: 01/04/19 09: 50 Text: Status: Complete Freq: Protocol: Document 01/04/19 14:59 TARIK (Rec: 01/04/19 15:06 LCCOREY [id number]) Nutritional Asmnt/Malnutrition Patient General Information Nutritional Screening Moderate Risk Diagnosis psychosis Pertinent Medical Hx/Surgical Hx dementia, DJD, osteoporosis Subjective Information pt seen lying in bed, awake and alert, stated food has beed great. Pt is not a big eater. Encourage to eat balanced meals and pt agreed with it. Per EMR, PO intake 75 -100% Current Diet Order/ Nutrition Support regular Pertinent Medications reviewed Pertinent Labs 5/ reviewed Nutritional Hx/Data Height 5 ft 5 in Height (Calculated Centimeters) 165.1 Current Weight (lbs) 165 lb Weight (Calculated Kilograms) 74.8 Weight (Calculated Grams) 79550.7 [place] Body Weight 125 Body Mass Index (BMI) 27.4 Weight Status Overweight GI Symptoms GI Symptoms None Last BM 01/04 x 2 Difficult in: None Skin Integrity/Comment: intact Current %PO Good (75-100%) Estimated Nutritional Goals BEE in Kcals: Using Current wt Calories/Kcals/Kg 23-27 Kcals Calculated 1988-1797 Protein: Using Current wt Protein g/k.8 Protein Calculated 60 Fluid: ml 1725-1998ml (1ml/kcal) Nutritional Problem No current Nutrition Prob Problem N/A Malnutrition Alert Is there a minimum of two criteria No selected? Query Text:Check all the applicable criteria. A minimum of two criteria are recommended for diagnosis of either severe or non-severe malnutrition. Malnutrition Related to Morbid Obesity Malnutrition related to morbid obesity No Intervention/Recommendation Comments 1. Continue with regular diet as ordered. 2. Monitor PO intake, wt, labs and skin integrity 3. F/U as low risk in 7 days Expected Outcomes/Goals Expected Outcomes/Goals 1. PO intake to meet at least 75% of nutritional needs. 2. Wt stability, skin to remain intact, labs to approach WNL.
--- NOTE | 2019-10-20 19:41 | Progress Notes ---
DATE: 10/20/2019 Case was discussed with staff of the patient, reviewed records. The patient continues to remain same, confused, demented waiting for placement. Sleeping well, eating well. No suicidal ideation, no homicidal ideation, no paranoia, no side effects. We will continue outpatient group therapy, milieu therapy, and adjust medications as needed. JOB# [id number]
--- NOTE | 2019-10-20 19:41 | Progress Notes ---
DATE: 10/18/2019 This is a late note for the date of the 10/18/2019. SUBJECTIVE: Case was discussed with staff of the patient, reviewed records. The patient continues to have poor insight, unpredictable, impulsive, demented, confused, waiting for placement, waiting for the court to release her funds to be placed she has beenhere for a long period of time. No side effects with the medication, no sedation, no nausea. We will continue outpatient group therapy, milieu therapy, and adjust medications as needed. JOB# [id number] ADALBERTO
[2019-10-21] MEDS: Multivitamin w/ Minerals Tab PO SCH (08:15)
--- NOTE | 2019-10-21 13:09 | Internal Medicine Prog Note ---
Internal Medicine Subjective - Subjective Service Date: 10/21/19 Patient seen and examined:: with staff Patient is:: awake, verbal, interactive, ambulating, confused Per staff patient has:: no adverse event, no episodes of fall, eating well, tolerating meds Internal Medicine Objective - Results Recent Labs: Laboratory Last Values POC Glucose 112 MG/DL (70 - 105) H 08/11/19 21:00 Triglycerides 162 mg/dL (<150) H 12/31/18 08:04 Cholesterol 234 mg/dL (<200) H 12/31/18 08:04 LDL Cholesterol Direct 155 mg/dL (75-193) 12/31/18 08:04 HDL Cholesterol 62 mg/dL (23-92) 12/31/18 08:04 - Physical Exam Vitals and I&O: Vital Signs Temp 98.1 F 10/21/19 06:46 Pulse 69 10/21/19 06:46 Resp 18 10/21/19 06:46 BP 98/60 10/21/19 06:46 Pulse Ox 98 10/21/19 06:46 Intake & Output 10/20/19 10/21/19 10/21/19 18:59 06:59 18:59 Intake Total 1000 240 Balance 1000 240 Intake: Oral 1000 240 Other: # Voids 4 1 # Bowel Movements 1 Active Medications: Current Medications Acetaminophen (Tylenol) 650 mg PO Q4H PRN PRN Reason: Mild Pain (1-3) Stop: 12/06/19 19:14 Acetaminophen (Tylenol) 650 mg PO Q4H PRN PRN Reason: TEMP ABOVE 101 Stop: 12/09/19 16:12 Alendronate Sodium (Fosamax) 70 mg PO QTHUR@0630 [facility] Stop: 11/12/19 06:29 Last Admin: 10/18/19 06:30 Dose: 70 mg Donepezil HCl (Aricept) 10 mg PO [facility] Last Admin: 10/20/19 20:31 Dose: 10 mg General: demented, thin HEENT: NC/AT, PERRLA, EOMI Neck: Supple, No JVD, No thyromegaly Lungs: CTAB Cardiovascular: RRR, Normal S1, Normal S2, with murmur Abdomen: soft, thin, non-distended, positive bowel sound Extremities: excoriation Neurological: no change Internal Medicine Assmt/Plan - Assessment Assessment: alzheimers dementa elevated chol djd osteoporosis - Plan Plan: fall precaution nutritional support cont on calcium supplement will cont to follow dw rn add mvi placement ongoing Nutritional Asmnt/Malnutr-PDOC - Dietary Evaluation Malnutrition Findings (Please click <Entered> for more info): Nutritional Asmnt/Malnutrition Start: 01/04/19 09: 50 Text: Status: Complete Freq: Protocol: Document 01/04/19 14:59 TARIK (Rec: 01/04/19 15:06 LCHENG [email or web address]) Nutritional Asmnt/Malnutrition Patient General Information Nutritional Screening Moderate Risk Diagnosis psychosis Pertinent Medical Hx/Surgical Hx dementia, DJD, osteoporosis Subjective Information pt seen lying in bed, awake and alert, stated food has beed great. Pt is not a big eater. Encourage to eat balanced meals and pt agreed with it. Per EMR, PO intake 75 -100% Current Diet Order/ Nutrition Support regular Pertinent Medications reviewed Pertinent Labs / reviewed Nutritional Hx/Data Height 5 ft 5 in Height (Calculated Centimeters) 165.1 Current Weight (lbs) 165 lb Weight (Calculated Kilograms) 74.8 Weight (Calculated Grams) 25653.7 [place] Body Weight 125 Body Mass Index (BMI) 27.4 Weight Status Overweight GI Symptoms GI Symptoms None Last BM 01/04 x 2 Difficult in: None Skin Integrity/Comment: intact Current %PO Good (75-100%) Estimated Nutritional Goals BEE in Kcals: Using Current wt Calories/Kcals/Kg 23-27 Kcals Calculated 8139-3165 Protein: Using Current wt Protein g/k.8 Protein Calculated 60 Fluid: ml 1725-1998ml (1ml/kcal) Nutritional Problem No current Nutrition Prob Problem N/A Malnutrition Alert Is there a minimum of two criteria No selected? Query Text:Check all the applicable criteria. A minimum of two criteria are recommended for diagnosis of either severe or non-severe malnutrition. Malnutrition Related to Morbid Obesity Malnutrition related to morbid obesity No Intervention/Recommendation Comments 1. Continue with regular diet as ordered. 2. Monitor PO intake, wt, labs and skin integrity 3. F/U as low risk in 7 days Expected Outcomes/Goals Expected Outcomes/Goals 1. PO intake to meet at least 75% of nutritional needs. 2. Wt stability, skin to remain intact, labs to approach WNL.
--- NOTE | 2019-10-21 20:16 | Progress Notes ---
DATE: 10/21/2019 SUBJECTIVE: Case was discussed with staff of the patient, reviewed records. The patient continues to do the same, awaiting placement sleeps well, eats well. No acting out behavior. No suicidal ideation, no homicidal ideation, no paranoia, no side effects and waiting for her found to be released so that she can be discharged. We will continue outpatient group therapy, milieu therapy, and adjust medications as needed. [facility]# [id number]
[2019-10-22] MEDS: Multivitamin w/ Minerals Tab PO SCH (08:15)
--- NOTE | 2019-10-22 13:01 | Internal Medicine Prog Note ---
Internal Medicine Subjective - Subjective Patient seen and examined:: with staff, chart reviewed Patient is:: awake, verbal, interactive, ambulating, confused Per staff patient has:: no adverse event, no episodes of fall, eating well, tolerating meds Internal Medicine Objective - Results Recent Labs: Laboratory Last Values POC Glucose 112 MG/DL (70 - 105) H 08/11/19 21:00 Triglycerides 162 mg/dL (<150) H 12/31/18 08:04 Cholesterol 234 mg/dL (<200) H 12/31/18 08:04 LDL Cholesterol Direct 155 mg/dL (75-193) 12/31/18 08:04 HDL Cholesterol 62 mg/dL (23-92) 12/31/18 08:04 - Physical Exam Vitals and I&O: Vital Signs Temp 97.5 F 10/22/19 06:28 Pulse 78 10/22/19 06:28 Resp 17 10/22/19 08:00 BP 99/61 10/22/19 06:28 Pulse Ox 96 10/22/19 06:28 Intake & Output 10/21/19 10/22/19 10/22/19 18:59 06:59 18:59 Intake Total 120 Balance 120 Intake: Oral 120 Other: # Voids 2 2 # Bowel Movements 0 Active Medications: Current Medications Acetaminophen (Tylenol) 650 mg PO Q4H PRN PRN Reason: Mild Pain (1-3) Stop: 12/06/19 19:14 Acetaminophen (Tylenol) 650 mg PO Q4H PRN PRN Reason: TEMP ABOVE 101 Stop: 12/09/19 16:12 Alendronate Sodium (Fosamax) 70 mg PO QTHUR@0630 [facility] Stop: 11/12/19 06:29 Last Admin: 10/18/19 06:30 Dose: 70 mg Donepezil HCl (Aricept) 10 mg PO [facility] Last Admin: 10/21/19 20:26 Dose: 10 mg General: demented, thin HEENT: NC/AT, PERRLA, EOMI Neck: Supple, No JVD, No thyromegaly Lungs: CTAB Cardiovascular: RRR, Normal S1, Normal S2, with murmur Abdomen: soft, thin, non-distended, positive bowel sound Extremities: excoriation Neurological: no change Internal Medicine Assmt/Plan - Assessment Assessment: alzheimers dementia elevated chol djd osteoporosis ho old left hip fx - Plan Plan: medically stable fall precaution nutritional support cont on calcium supplemetn - resume fosamax will cont to follow tom rn Nutritional Asmnt/Malnutr-PDOC - Dietary Evaluation Malnutrition Findings (Please click <Entered> for more info): Nutritional Asmnt/Malnutrition Start: 01/04/19 09: 50 Text: Status: Complete Freq: Protocol: Document 01/04/19 14:59 LCJOSEG (Rec: 01/04/19 15:06 LCHENG [email or web address]) Nutritional Asmnt/Malnutrition Patient General Information Nutritional Screening Moderate Risk Diagnosis psychosis Pertinent Medical Hx/Surgical Hx dementia, DJD, osteoporosis Subjective Information pt seen lying in bed, awake and alert, stated food has beed great. Pt is not a big eater. Encourage to eat balanced meals and pt agreed with it. Per EMR, PO intake 75 -100% Current Diet Order/ Nutrition Support regular Pertinent Medications reviewed Pertinent Labs 12/31 reviewed Nutritional Hx/Data Height 1.65 m Height (Calculated Centimeters) 165.1 Current Weight (lbs) 74.843 kg Weight (Calculated Kilograms) 74.8 Weight (Calculated Grams) 15118.7 [place] Body Weight 125 Body Mass Index (BMI) 27.4 Weight Status Overweight GI Symptoms GI Symptoms None Last BM 01/04 x 2 Difficult in: None Skin Integrity/Comment: intact Current %PO Good (75-100%) Estimated Nutritional Goals BEE in Kcals: Using Current wt Calories/Kcals/Kg 23-27 Kcals Calculated 3942-9655 Protein: Using Current wt Protein g/k.8 Protein Calculated 60 Fluid: ml 1725-1998ml (1ml/kcal) Nutritional Problem No current Nutrition Prob Problem N/A Malnutrition Alert Is there a minimum of two criteria No selected? Query Text:Check all the applicable criteria. A minimum of two criteria are recommended for diagnosis of either severe or non-severe malnutrition. Malnutrition Related to Morbid Obesity Malnutrition related to morbid obesity No Intervention/Recommendation Comments 1. Continue with regular diet as ordered. 2. Monitor PO intake, wt, labs and skin integrity 3. F/U as low risk in 7 days Expected Outcomes/Goals Expected Outcomes/Goals 1. PO intake to meet at least 75% of nutritional needs. 2. Wt stability, skin to remain intact, labs to approach WNL.
--- NOTE | 2019-10-22 18:59 | Progress Notes ---
DATE: 10/22/2019 SUBJECTIVE: Case was discussed with staff of the patient, reviewed records. The patient continued to be demented, confused, waiting for placement has been here for a long period of time. No suicidal ideation, homicidal ideation or plan, no side effects. Working on discharge plan . We will continue outpatient group therapy, milieu therapy, and adjust medication as needed. JOB# [id number] [facility]
[2019-10-23] MEDS: Multivitamin w/ Minerals Tab PO SCH (08:18)
--- NOTE | 2019-10-23 12:07 | Internal Medicine Prog Note ---
Internal Medicine Subjective - Subjective Patient seen and examined:: with staff, chart reviewed Patient is:: awake, verbal, interactive, ambulating, confused Per staff patient has:: no adverse event, no episodes of fall, eating well, tolerating meds Internal Medicine Objective - Results Recent Labs: Laboratory Last Values POC Glucose 112 MG/DL (70 - 105) H 08/11/19 21:00 Triglycerides 162 mg/dL (<150) H 12/31/18 08:04 Cholesterol 234 mg/dL (<200) H 12/31/18 08:04 LDL Cholesterol Direct 155 mg/dL (75-193) 12/31/18 08:04 HDL Cholesterol 62 mg/dL (23-92) 12/31/18 08:04 - Physical Exam Vitals and I&O: Vital Signs Temp 97.0 F 10/23/19 06:03 Pulse 67 10/23/19 06:03 Resp 18 10/23/19 06:03 BP 114/57 10/23/19 06:03 Pulse Ox 97 10/23/19 06:03 Intake & Output 10/22/19 10/23/19 10/23/19 18:59 06:59 18:59 Intake Total 1300 240 Balance 1300 240 Intake: Oral 1300 240 Other: # Voids 3 2 # Bowel Movements 0 Active Medications: Current Medications Acetaminophen (Tylenol) 650 mg PO Q4H PRN PRN Reason: Mild Pain (1-3) Stop: 12/06/19 19:14 Acetaminophen (Tylenol) 650 mg PO Q4H PRN PRN Reason: TEMP ABOVE 101 Stop: 12/09/19 16:12 Alendronate Sodium (Fosamax) 70 mg PO QTHUR@0630 [facility] Stop: 11/12/19 06:29 Last Admin: 10/18/19 06:30 Dose: 70 mg Donepezil HCl (Aricept) 10 mg PO HS [facility] Last Admin: 10/22/19 21:19 Dose: 10 mg General: demented, thin HEENT: NC/AT, PERRLA, EOMI Neck: Supple, No JVD, No thyromegaly Lungs: CTAB Cardiovascular: RRR, Normal S1, Normal S2, with murmur Abdomen: soft, thin, non-distended, positive bowel sound Extremities: excoriation Neurological: no change Internal Medicine Assmt/Plan - Assessment Assessment: alzheimers dementia elevated chol djd osteoporosis ho old left hip fx - Plan Plan: medically stable fall precaution nutritional support cont on calcium supplemetn - resume fosamax will cont to follow tom rn Nutritional Asmnt/Malnutr-PDOC - Dietary Evaluation Malnutrition Findings (Please click <Entered> for more info): Nutritional Asmnt/Malnutrition Start: 01/04/19 09: 50 Text: Status: Complete Freq: Protocol: Document 01/04/19 14:59 LCHENG (Rec: 01/04/19 15:06 LCHENG [email or web address]) Nutritional Asmnt/Malnutrition Patient General Information Nutritional Screening Moderate Risk Diagnosis psychosis Pertinent Medical Hx/Surgical Hx dementia, DJD, osteoporosis Subjective Information pt seen lying in bed, awake and alert, stated food has beed great. Pt is not a big eater. Encourage to eat balanced meals and pt agreed with it. Per EMR, PO intake 75 -100% Current Diet Order/ Nutrition Support regular Pertinent Medications reviewed Pertinent Labs 12/31 reviewed Nutritional Hx/Data Height 1.65 m Height (Calculated Centimeters) 165.1 Current Weight (lbs) 74.843 kg Weight (Calculated Kilograms) 74.8 Weight (Calculated Grams) 66401.7 [place] Body Weight 125 Body Mass Index (BMI) 27.4 Weight Status Overweight GI Symptoms GI Symptoms None Last BM 01/04 x 2 Difficult in: None Skin Integrity/Comment: intact Current %PO Good (75-100%) Estimated Nutritional Goals BEE in Kcals: Using Current wt Calories/Kcals/Kg 23-27 Kcals Calculated 2248-0998 Protein: Using Current wt Protein g/k.8 Protein Calculated 60 Fluid: ml 1725-1998ml (1ml/kcal) Nutritional Problem No current Nutrition Prob Problem N/A Malnutrition Alert Is there a minimum of two criteria No selected? Query Text:Check all the applicable criteria. A minimum of two criteria are recommended for diagnosis of either severe or non-severe malnutrition. Malnutrition Related to Morbid Obesity Malnutrition related to morbid obesity No Intervention/Recommendation Comments 1. Continue with regular diet as ordered. 2. Monitor PO intake, wt, labs and skin integrity 3. F/U as low risk in 7 days Expected Outcomes/Goals Expected Outcomes/Goals 1. PO intake to meet at least 75% of nutritional needs. 2. Wt stability, skin to remain intact, labs to approach WNL.
--- NOTE | 2019-10-24 01:01 | Progress Notes ---
DATE: Case was discussed with staff of patient, reviewed records. The patient has been very pleasant and cooperative. In general, she sleeps well. She eats well. No suicidal ideation. No homicidal ideation, no paranoia, no side effects. We will continue outpatient group therapy, milieu therapy working on discharge plan. She will go to a facility after they release her fund from the court. I will continue to work with the patient in group therapy, milieu therapy, and adjust medications as needed. JOB# [id number]
[2019-10-24] MEDS: Multivitamin w/ Minerals Tab PO SCH (08:16)
--- NOTE | 2019-10-24 13:29 | Internal Medicine Prog Note ---
Internal Medicine Subjective - Subjective Patient seen and examined:: with staff, chart reviewed Patient is:: awake, verbal, interactive, ambulating, confused Per staff patient has:: no adverse event, no episodes of fall, eating well, tolerating meds Internal Medicine Objective - Results Recent Labs: Laboratory Last Values POC Glucose 112 MG/DL (70 - 105) H 08/11/19 21:00 Triglycerides 162 mg/dL (<150) H 12/31/18 08:04 Cholesterol 234 mg/dL (<200) H 12/31/18 08:04 LDL Cholesterol Direct 155 mg/dL (75-193) 12/31/18 08:04 HDL Cholesterol 62 mg/dL (23-92) 12/31/18 08:04 - Physical Exam Vitals and I&O: Vital Signs Temp 98 F 10/24/19 06:11 Pulse 67 10/24/19 06:11 Resp 18 10/23/19 20:09 BP 121/55 10/23/19 20:09 Pulse Ox 96 10/23/19 20:09 Intake & Output 10/23/19 10/24/19 10/24/19 18:59 06:59 18:59 Intake Total 1300 120 Balance 1300 120 Intake: Oral 1300 120 Other: # Voids 3 3 # Bowel Movements 0 0 Stool Characteristics Formed Brown Active Medications: Current Medications Acetaminophen (Tylenol) 650 mg PO Q4H PRN PRN Reason: Mild Pain (1-3) Stop: 12/06/19 19:14 Acetaminophen (Tylenol) 650 mg PO Q4H PRN PRN Reason: TEMP ABOVE 101 Stop: 12/09/19 16:12 Alendronate Sodium (Fosamax) 70 mg PO QTHUR@0630 [facility] Stop: 11/12/19 06:29 Last Admin: 10/18/19 06:30 Dose: 70 mg Donepezil HCl (Aricept) 10 mg PO HS [facility] Last Admin: 10/23/19 20:24 Dose: 10 mg General: demented, thin HEENT: NC/AT, PERRLA, EOMI Neck: Supple, No JVD, No thyromegaly Lungs: CTAB Cardiovascular: RRR, Normal S1, Normal S2, with murmur Abdomen: soft, thin, non-distended, positive bowel sound Extremities: excoriation Neurological: no change Internal Medicine Assmt/Plan - Assessment Assessment: alzheimers dementia elevated chol djd osteoporosis ho old left hip fx - Plan Plan: medically stable fall precaution nutritional support cont on calcium supplemetn - resume fosamax will cont to follow tom rn Nutritional Asmnt/Malnutr-PDOC - Dietary Evaluation Malnutrition Findings (Please click <Entered> for more info): Nutritional Asmnt/Malnutrition Start: 01/04/19 09: 50 Text: Status: Complete Freq: Protocol: Document 01/04/19 14:59 TARIK (Rec: 01/04/19 15:06 LCHENG [email or web address]) Nutritional Asmnt/Malnutrition Patient General Information Nutritional Screening Moderate Risk Diagnosis psychosis Pertinent Medical Hx/Surgical Hx dementia, DJD, osteoporosis Subjective Information pt seen lying in bed, awake and alert, stated food has beed great. Pt is not a big eater. Encourage to eat balanced meals and pt agreed with it. Per EMR, PO intake 75 -100% Current Diet Order/ Nutrition Support regular Pertinent Medications reviewed Pertinent Labs 12/31 reviewed Nutritional Hx/Data Height 1.65 m Height (Calculated Centimeters) 165.1 Current Weight (lbs) 74.843 kg Weight (Calculated Kilograms) 74.8 Weight (Calculated Grams) 50445.7 [place] Body Weight 125 Body Mass Index (BMI) 27.4 Weight Status Overweight GI Symptoms GI Symptoms None Last BM 01/04 x 2 Difficult in: None Skin Integrity/Comment: intact Current %PO Good (75-100%) Estimated Nutritional Goals BEE in Kcals: Using Current wt Calories/Kcals/Kg 23-27 Kcals Calculated 7018-8065 Protein: Using Current wt Protein g/k.8 Protein Calculated 60 Fluid: ml 1725-1998ml (1ml/kcal) Nutritional Problem No current Nutrition Prob Problem N/A Malnutrition Alert Is there a minimum of two criteria No selected? Query Text:Check all the applicable criteria. A minimum of two criteria are recommended for diagnosis of either severe or non-severe malnutrition. Malnutrition Related to Morbid Obesity Malnutrition related to morbid obesity No Intervention/Recommendation Comments 1. Continue with regular diet as ordered. 2. Monitor PO intake, wt, labs and skin integrity 3. F/U as low risk in 7 days Expected Outcomes/Goals Expected Outcomes/Goals 1. PO intake to meet at least 75% of nutritional needs. 2. Wt stability, skin to remain intact, labs to approach WNL.
--- NOTE | 2019-10-25 02:18 | Progress Notes ---
DATE: 10/24/2019 SUBJECTIVE: Chart was reviewed and the patient was interviewed. Also discussed the patient's condition with the staff and reviewed records and labs. The patient is still anxious about her placement issue and discharge plans and she is still asking if she can go home. She also is still pleasantly confused. She has been talking in a friendly way to other patients on the unit and she also has been taking better care of her personal hygiene. Otherwise, the patient continues to comply with taking her medications with no side effects. ASSESSMENT: The patient is still considered to be gravely disabled and waiting for placement. TREATMENT PLAN: Continue to monitor behavior and condition. Also, working with case planner in regard to placement issue and discharge plans. [facility]# [id number]
[2019-10-25] MEDS: Multivitamin w/ Minerals Tab PO SCH (08:26)
--- NOTE | 2019-10-25 12:44 | Internal Medicine Prog Note ---
Internal Medicine Subjective - Subjective Patient seen and examined:: with staff, chart reviewed Patient is:: awake, verbal, interactive, ambulating, confused Per staff patient has:: no adverse event, no episodes of fall, eating well, tolerating meds Internal Medicine Objective - Results Recent Labs: Laboratory Last Values POC Glucose 112 MG/DL (70 - 105) H 08/11/19 21:00 Triglycerides 162 mg/dL (<150) H 12/31/18 08:04 Cholesterol 234 mg/dL (<200) H 12/31/18 08:04 LDL Cholesterol Direct 155 mg/dL (75-193) 12/31/18 08:04 HDL Cholesterol 62 mg/dL (23-92) 12/31/18 08:04 - Physical Exam Vitals and I&O: Vital Signs Temp 97.2 F 10/25/19 06:20 Pulse 66 10/25/19 06:20 Resp 19 10/25/19 06:20 BP 128/73 10/25/19 06:20 Pulse Ox 98 10/25/19 06:20 Intake & Output 10/24/19 10/25/19 10/25/19 18:59 06:59 18:59 Intake Total 1300 120 Balance 1300 120 Intake: Oral 1300 120 Other: # Voids 3 1 # Bowel Movements 0 0 Stool Characteristics Formed Formed Brown Brown Active Medications: Current Medications Acetaminophen (Tylenol) 650 mg PO Q4H PRN PRN Reason: Mild Pain (1-3) Stop: 12/06/19 19:14 Acetaminophen (Tylenol) 650 mg PO Q4H PRN PRN Reason: TEMP ABOVE 101 Stop: 12/09/19 16:12 Alendronate Sodium (Fosamax) 70 mg PO QTHUR@0630 [facility] Stop: 11/12/19 06:29 Last Admin: 10/25/19 06:27 Dose: 70 mg Donepezil HCl (Aricept) 10 mg PO [facility] Last Admin: 10/24/19 20:14 Dose: 10 mg General: demented, thin HEENT: NC/AT, PERRLA, EOMI Neck: Supple, No JVD, No thyromegaly Lungs: CTAB Cardiovascular: RRR, Normal S1, Normal S2, with murmur Abdomen: soft, thin, non-distended, positive bowel sound Extremities: excoriation Neurological: no change Internal Medicine Assmt/Plan - Assessment Assessment: alzheimers dementia elevated chol djd osteoporosis ho old left hip fx - Plan Plan: medically stable fall precaution nutritional support cont on calcium supplemetn - resume fosamax will cont to follow tom rn Nutritional Asmnt/Malnutr-PDOC - Dietary Evaluation Malnutrition Findings (Please click <Entered> for more info): Nutritional Asmnt/Malnutrition Start: 01/04/19 09: 50 Text: Status: Complete Freq: Protocol: Document 01/04/19 14:59 LCJOSEG (Rec: 01/04/19 15:06 LCHENG [email or web address]) Nutritional Asmnt/Malnutrition Patient General Information Nutritional Screening Moderate Risk Diagnosis psychosis Pertinent Medical Hx/Surgical Hx dementia, DJD, osteoporosis Subjective Information pt seen lying in bed, awake and alert, stated food has beed great. Pt is not a big eater. Encourage to eat balanced meals and pt agreed with it. Per EMR, PO intake 75 -100% Current Diet Order/ Nutrition Support regular Pertinent Medications reviewed Pertinent Labs 12/31 reviewed Nutritional Hx/Data Height 1.65 m Height (Calculated Centimeters) 165.1 Current Weight (lbs) 74.843 kg Weight (Calculated Kilograms) 74.8 Weight (Calculated Grams) 65976.7 [place] Body Weight 125 Body Mass Index (BMI) 27.4 Weight Status Overweight GI Symptoms GI Symptoms None Last BM 01/04 x 2 Difficult in: None Skin Integrity/Comment: intact Current %PO Good (75-100%) Estimated Nutritional Goals BEE in Kcals: Using Current wt Calories/Kcals/Kg 23-27 Kcals Calculated 0634-5533 Protein: Using Current wt Protein g/k.8 Protein Calculated 60 Fluid: ml 1725-1998ml (1ml/kcal) Nutritional Problem No current Nutrition Prob Problem N/A Malnutrition Alert Is there a minimum of two criteria No selected? Query Text:Check all the applicable criteria. A minimum of two criteria are recommended for diagnosis of either severe or non-severe malnutrition. Malnutrition Related to Morbid Obesity Malnutrition related to morbid obesity No Intervention/Recommendation Comments 1. Continue with regular diet as ordered. 2. Monitor PO intake, wt, labs and skin integrity 3. F/U as low risk in 7 days Expected Outcomes/Goals Expected Outcomes/Goals 1. PO intake to meet at least 75% of nutritional needs. 2. Wt stability, skin to remain intact, labs to approach WNL.
--- NOTE | 2019-10-25 12:45 | Progress Notes ---
DATE: 10/25/2019 SUBJECTIVE: Chart was reviewed and the patient interviewed. Also discussed the patient's condition with the staff and reviewed records and labs. The patient is still anxious and restless about her discharge, but at the same time, no major behavioral problems. The patient also is still pleasantly confused and wandering around the hospital, but no behavioral issues. She also is still at times needs redirections. Otherwise, the patient is compliant and cooperative with her treatment. ASSESSMENT: The patient is still pleasantly confused and waiting for placement. TREATMENT PLAN: Continue current treatment and medications and continue to work on discharge plans and placement issue. JOB# [id number]
[2019-10-26] MEDS: Multivitamin w/ Minerals Tab PO SCH (08:30)
--- NOTE | 2019-10-26 13:04 | Internal Medicine Prog Note ---
Internal Medicine Subjective - Subjective Patient seen and examined:: with staff, chart reviewed Patient is:: awake, verbal, interactive, ambulating, confused Per staff patient has:: no adverse event, no episodes of fall, eating well, tolerating meds Internal Medicine Objective - Results Recent Labs: Laboratory Last Values POC Glucose 112 MG/DL (70 - 105) H 08/11/19 21:00 Triglycerides 162 mg/dL (<150) H 12/31/18 08:04 Cholesterol 234 mg/dL (<200) H 12/31/18 08:04 LDL Cholesterol Direct 155 mg/dL (75-193) 12/31/18 08:04 HDL Cholesterol 62 mg/dL (23-92) 12/31/18 08:04 - Physical Exam Vitals and I&O: Vital Signs Temp 97.8 F 10/26/19 06:31 Pulse 70 10/26/19 06:31 Resp 18 10/26/19 06:31 BP 131/87 10/26/19 06:31 Pulse Ox 97 10/26/19 06:31 Intake & Output 10/25/19 10/26/19 10/26/19 18:59 06:59 18:59 Intake Total 1250 120 Balance 1250 120 Intake: Oral 1250 120 Other: # Voids 1 # Bowel Movements 1 0 Stool Characteristics Formed Brown Active Medications: Current Medications Acetaminophen (Tylenol) 650 mg PO Q4H PRN PRN Reason: Mild Pain (1-3) Stop: 12/06/19 19:14 Acetaminophen (Tylenol) 650 mg PO Q4H PRN PRN Reason: TEMP ABOVE 101 Stop: 12/09/19 16:12 Alendronate Sodium (Fosamax) 70 mg PO QTHUR@0630 [facility] Stop: 11/12/19 06:29 Last Admin: 10/25/19 06:27 Dose: 70 mg Donepezil HCl (Aricept) 10 mg PO HS [facility] Last Admin: 10/25/19 20:44 Dose: 10 mg General: demented, thin HEENT: NC/AT, PERRLA, EOMI Neck: Supple, No JVD, No thyromegaly Lungs: CTAB Cardiovascular: RRR, Normal S1, Normal S2, with murmur Abdomen: soft, thin, non-distended, positive bowel sound Extremities: excoriation Neurological: no change Internal Medicine Assmt/Plan - Assessment Assessment: alzheimers dementia elevated chol djd osteoporosis ho old left hip fx - Plan Plan: medically stable fall precaution nutritional support cont on calcium supplemetn - resume fosamax will cont to follow tom rn Nutritional Asmnt/Malnutr-PDOC - Dietary Evaluation Malnutrition Findings (Please click <Entered> for more info): Nutritional Asmnt/Malnutrition Start: 01/04/19 09: 50 Text: Status: Complete Freq: Protocol: Document 01/04/19 14:59 LCJOSEG (Rec: 01/04/19 15:06 LCHENG [email or web address]) Nutritional Asmnt/Malnutrition Patient General Information Nutritional Screening Moderate Risk Diagnosis psychosis Pertinent Medical Hx/Surgical Hx dementia, DJD, osteoporosis Subjective Information pt seen lying in bed, awake and alert, stated food has beed great. Pt is not a big eater. Encourage to eat balanced meals and pt agreed with it. Per EMR, PO intake 75 -100% Current Diet Order/ Nutrition Support regular Pertinent Medications reviewed Pertinent Labs 12/31 reviewed Nutritional Hx/Data Height 1.65 m Height (Calculated Centimeters) 165.1 Current Weight (lbs) 74.843 kg Weight (Calculated Kilograms) 74.8 Weight (Calculated Grams) 16940.7 [place] Body Weight 125 Body Mass Index (BMI) 27.4 Weight Status Overweight GI Symptoms GI Symptoms None Last BM 01/04 x 2 Difficult in: None Skin Integrity/Comment: intact Current %PO Good (75-100%) Estimated Nutritional Goals BEE in Kcals: Using Current wt Calories/Kcals/Kg 23-27 Kcals Calculated 0494-0340 Protein: Using Current wt Protein g/k.8 Protein Calculated 60 Fluid: ml 1725-1998ml (1ml/kcal) Nutritional Problem No current Nutrition Prob Problem N/A Malnutrition Alert Is there a minimum of two criteria No selected? Query Text:Check all the applicable criteria. A minimum of two criteria are recommended for diagnosis of either severe or non-severe malnutrition. Malnutrition Related to Morbid Obesity Malnutrition related to morbid obesity No Intervention/Recommendation Comments 1. Continue with regular diet as ordered. 2. Monitor PO intake, wt, labs and skin integrity 3. F/U as low risk in 7 days Expected Outcomes/Goals Expected Outcomes/Goals 1. PO intake to meet at least 75% of nutritional needs. 2. Wt stability, skin to remain intact, labs to approach WNL.
--- NOTE | 2019-10-26 15:42 | Progress Notes ---
DATE: 10/26/2019 SUBJECTIVE: Chart was reviewed and the patient interviewed. Also discussed the patient's condition with the staff and reviewed the records and labs. The patient is still anxious about her discharge date and she is still in angry and in irritable mood. The patient also is still easily agitated. The patient also is still restless and still wants to be discharged, but at the same time, she has no place to go because of still court issues, dealing with her ____ she is having her money tied up until now. Otherwise, no major behavioral problem for the patient. ASSESSMENT: The patient is still waiting for placement and for discharge plans. TREATMENT PLAN: We will continue current treatment and working on placement issue and on discharge plans. JOB# [id number]
[2019-10-27] MEDS: Multivitamin w/ Minerals Tab PO SCH (08:17)
--- NOTE | 2019-10-27 12:43 | Internal Medicine Prog Note ---
Internal Medicine Subjective - Subjective Patient seen and examined:: with staff, chart reviewed Patient is:: awake, verbal, interactive, ambulating, confused Per staff patient has:: no adverse event, no episodes of fall, eating well, tolerating meds Internal Medicine Objective - Results Recent Labs: Laboratory Last Values POC Glucose 112 MG/DL (70 - 105) H 08/11/19 21:00 Triglycerides 162 mg/dL (<150) H 12/31/18 08:04 Cholesterol 234 mg/dL (<200) H 12/31/18 08:04 LDL Cholesterol Direct 155 mg/dL (75-193) 12/31/18 08:04 HDL Cholesterol 62 mg/dL (23-92) 12/31/18 08:04 - Physical Exam Vitals and I&O: Vital Signs Temp 98.7 F 10/27/19 05:49 Pulse 58 10/27/19 05:49 Resp 20 10/27/19 05:49 BP 108/66 10/27/19 05:49 Pulse Ox 95 10/27/19 05:49 Intake & Output 10/26/19 10/27/19 10/27/19 18:59 06:59 18:59 Intake Total 1000 480 Balance 1000 480 Intake: Oral 1000 480 Other: # Voids 4 1 # Bowel Movements 1 Active Medications: Current Medications Acetaminophen (Tylenol) 650 mg PO Q4H PRN PRN Reason: Mild Pain (1-3) Stop: 12/06/19 19:14 Acetaminophen (Tylenol) 650 mg PO Q4H PRN PRN Reason: TEMP ABOVE 101 Stop: 12/09/19 16:12 Alendronate Sodium (Fosamax) 70 mg PO QTHUR@0630 [facility] Stop: 11/12/19 06:29 Last Admin: 10/25/19 06:27 Dose: 70 mg Donepezil HCl (Aricept) 10 mg PO HS [facility] Last Admin: 10/26/19 20:57 Dose: 10 mg General: demented, thin HEENT: NC/AT, PERRLA, EOMI Neck: Supple, No JVD, No thyromegaly Lungs: CTAB Cardiovascular: RRR, Normal S1, Normal S2, with murmur Abdomen: soft, thin, non-distended, positive bowel sound Extremities: excoriation Neurological: no change Internal Medicine Assmt/Plan - Assessment Assessment: alzheimers dementia elevated chol djd osteoporosis ho old left hip fx - Plan Plan: medically stable fall precaution nutritional support cont on calcium supplemetn - resume fosamax will cont to follow tom rn Nutritional Asmnt/Malnutr-PDOC - Dietary Evaluation Malnutrition Findings (Please click <Entered> for more info): Nutritional Asmnt/Malnutrition Start: 01/04/19 09: 50 Text: Status: Complete Freq: Protocol: Document 01/04/19 14:59 LCHENG (Rec: 01/04/19 15:06 LCHENG [email or web address]) Nutritional Asmnt/Malnutrition Patient General Information Nutritional Screening Moderate Risk Diagnosis psychosis Pertinent Medical Hx/Surgical Hx dementia, DJD, osteoporosis Subjective Information pt seen lying in bed, awake and alert, stated food has beed great. Pt is not a big eater. Encourage to eat balanced meals and pt agreed with it. Per EMR, PO intake 75 -100% Current Diet Order/ Nutrition Support regular Pertinent Medications reviewed Pertinent Labs 12/31 reviewed Nutritional Hx/Data Height 1.65 m Height (Calculated Centimeters) 165.1 Current Weight (lbs) 74.843 kg Weight (Calculated Kilograms) 74.8 Weight (Calculated Grams) 43516.7 [place] Body Weight 125 Body Mass Index (BMI) 27.4 Weight Status Overweight GI Symptoms GI Symptoms None Last BM 01/04 x 2 Difficult in: None Skin Integrity/Comment: intact Current %PO Good (75-100%) Estimated Nutritional Goals BEE in Kcals: Using Current wt Calories/Kcals/Kg 23-27 Kcals Calculated 3606-5996 Protein: Using Current wt Protein g/k.8 Protein Calculated 60 Fluid: ml 1725-1998ml (1ml/kcal) Nutritional Problem No current Nutrition Prob Problem N/A Malnutrition Alert Is there a minimum of two criteria No selected? Query Text:Check all the applicable criteria. A minimum of two criteria are recommended for diagnosis of either severe or non-severe malnutrition. Malnutrition Related to Morbid Obesity Malnutrition related to morbid obesity No Intervention/Recommendation Comments 1. Continue with regular diet as ordered. 2. Monitor PO intake, wt, labs and skin integrity 3. F/U as low risk in 7 days Expected Outcomes/Goals Expected Outcomes/Goals 1. PO intake to meet at least 75% of nutritional needs. 2. Wt stability, skin to remain intact, labs to approach WNL.
--- NOTE | 2019-10-28 06:26 | Psych Progress Note ---
Psych Progress Note - Intro Date of Progress Note: 10/27/19 - Assessment Assessment: Patient interviewed, case discussed with staff, chart and records were reviewed. Patient was visited in day room. No suicidal or homicidal thoughts. Remains confused, needs redirection on the unit. She requires staff assistance for basic needs. She has no plan for self care. Easily angered and labile on the unit. - Vitals, I&O Vitals: Vital Signs - 24 hr 10/27/19 10/27/19 10/27/19 13:09 14:25 20:21 Temp 98.3 F 98.0 F HR 71 73 RR 20 20 20 BP 118/65 108/56 O2 Sat % 92 96 10/28/19 06:06 Temp 99.4 F HR 90 RR 20 BP 116/76 O2 Sat % 94 - Objective Psych Objective: presents restless, anxious, depressed, constricted, A&O x 1, insight is poor, no SI/HI noted, no AH/VH, limited cooperation - Plan Plan: cont current treatment plan. - Review of Relevant Data Review of Relevant Data: I have reviewed the following items and time jimena (where applicable) has been applied. - Medications Current Medications: Current Medications Acetaminophen (Tylenol) 650 mg PO Q4H PRN PRN Reason: Mild Pain (1-3) Stop: 12/06/19 19:14 Acetaminophen (Tylenol) 650 mg PO Q4H PRN PRN Reason: TEMP ABOVE 101 Stop: 12/09/19 16:12 Alendronate Sodium (Fosamax) 70 mg PO QTHUR@0630 [facility] Stop: 11/12/19 06:29 Last Admin: 10/25/19 06:27 Dose: 70 mg Donepezil HCl (Aricept) 10 mg PO [facility] Last Admin: 10/27/19 20:54 Dose: 10 mg
[2019-10-28] MEDS: Multivitamin w/ Minerals Tab PO SCH (08:33)
--- NOTE | 2019-10-28 11:54 | Internal Medicine Prog Note ---
Internal Medicine Subjective - Subjective Patient seen and examined:: with staff, chart reviewed Patient is:: awake, verbal, interactive, ambulating, confused Per staff patient has:: no adverse event, no episodes of fall, eating well, tolerating meds Internal Medicine Objective - Results Recent Labs: Laboratory Last Values POC Glucose 112 MG/DL (70 - 105) H 08/11/19 21:00 Triglycerides 162 mg/dL (<150) H 12/31/18 08:04 Cholesterol 234 mg/dL (<200) H 12/31/18 08:04 LDL Cholesterol Direct 155 mg/dL (75-193) 12/31/18 08:04 HDL Cholesterol 62 mg/dL (23-92) 12/31/18 08:04 - Physical Exam Vitals and I&O: Vital Signs Temp 99.4 F 10/28/19 06:06 Pulse 90 10/28/19 06:06 Resp 20 10/28/19 06:06 BP 116/76 10/28/19 06:06 Pulse Ox 94 10/28/19 06:06 Intake & Output 10/27/19 10/28/19 10/28/19 18:59 06:59 18:59 Intake Total 1000 240 Balance 1000 240 Intake: Oral 1000 240 Other: # Voids 4 2 # Bowel Movements 1 Stool Characteristics Formed Brown Active Medications: Current Medications Acetaminophen (Tylenol) 650 mg PO Q4H PRN PRN Reason: Mild Pain (1-3) Stop: 12/06/19 19:14 Acetaminophen (Tylenol) 650 mg PO Q4H PRN PRN Reason: TEMP ABOVE 101 Stop: 12/09/19 16:12 Alendronate Sodium (Fosamax) 70 mg PO QTHUR@0630 [facility] Stop: 11/12/19 06:29 Last Admin: 10/25/19 06:27 Dose: 70 mg Donepezil HCl (Aricept) [address] [facility] Last Admin: 10/27/19 20:54 Dose: 10 mg General: demented, thin HEENT: NC/AT, PERRLA, EOMI Neck: Supple, No JVD, No thyromegaly Lungs: CTAB Cardiovascular: RRR, Normal S1, Normal S2, with murmur Abdomen: soft, thin, non-distended, positive bowel sound Extremities: excoriation Neurological: no change Internal Medicine Assmt/Plan - Assessment Assessment: alzheimers dementia elevated chol djd osteoporosis ho old left hip fx - Plan Plan: medically stable fall precaution nutritional support cont on calcium supplemetn - resume fosamax will cont to follow tom rn Nutritional Asmnt/Malnutr-PDOC - Dietary Evaluation Malnutrition Findings (Please click <Entered> for more info): Nutritional Asmnt/Malnutrition Start: 01/04/19 09: 50 Text: Status: Complete Freq: Protocol: Document 01/04/19 14:59 TARIK (Rec: 01/04/19 15:06 LCHENG [email or web address]) Nutritional Asmnt/Malnutrition Patient General Information Nutritional Screening Moderate Risk Diagnosis psychosis Pertinent Medical Hx/Surgical Hx dementia, DJD, osteoporosis Subjective Information pt seen lying in bed, awake and alert, stated food has beed great. Pt is not a big eater. Encourage to eat balanced meals and pt agreed with it. Per EMR, PO intake 75 -100% Current Diet Order/ Nutrition Support regular Pertinent Medications reviewed Pertinent Labs 12/31 reviewed Nutritional Hx/Data Height 1.65 m Height (Calculated Centimeters) 165.1 Current Weight (lbs) 74.843 kg Weight (Calculated Kilograms) 74.8 Weight (Calculated Grams) 24732.7 [place] Body Weight 125 Body Mass Index (BMI) 27.4 Weight Status Overweight GI Symptoms GI Symptoms None Last BM 01/04 x 2 Difficult in: None Skin Integrity/Comment: intact Current %PO Good (75-100%) Estimated Nutritional Goals BEE in Kcals: Using Current wt Calories/Kcals/Kg 23-27 Kcals Calculated 6886-5675 Protein: Using Current wt Protein g/k.8 Protein Calculated 60 Fluid: ml 1725-1998ml (1ml/kcal) Nutritional Problem No current Nutrition Prob Problem N/A Malnutrition Alert Is there a minimum of two criteria No selected? Query Text:Check all the applicable criteria. A minimum of two criteria are recommended for diagnosis of either severe or non-severe malnutrition. Malnutrition Related to Morbid Obesity Malnutrition related to morbid obesity No Intervention/Recommendation Comments 1. Continue with regular diet as ordered. 2. Monitor PO intake, wt, labs and skin integrity 3. F/U as low risk in 7 days Expected Outcomes/Goals Expected Outcomes/Goals 1. PO intake to meet at least 75% of nutritional needs. 2. Wt stability, skin to remain intact, labs to approach WNL.
--- NOTE | 2019-10-29 06:40 | Psych Progress Note ---
Psych Progress Note - Intro Date of Progress Note: 10/28/19 - Assessment Assessment: Patient interviewed, case discussed with staff, chart and records were reviewed. Patient was visited in day room. No suicidal or homicidal thoughts. Remains confused, needs redirection on the unit. She requires staff assistance for basic needs. She has no plan for self care. Easily angered and labile on the unit. States she is "fine" but does not engage further than this. - Vitals, I&O Vitals: Vital Signs - 24 hr 10/28/19 10/28/19 10/29/19 14:37 19:42 05:47 Temp 97.5 F 97.6 F 97.6 F HR 76 70 68 RR 20 18 20 BP 103/59 107/70 106/70 O2 Sat % 94 99 96 - Objective Psych Objective: presents restless, anxious, depressed, constricted, A&O x 1, insight is poor, no SI/HI noted, no AH/VH, limited cooperation - Plan Plan: cont current treatment plan. - Review of Relevant Data Review of Relevant Data: I have reviewed the following items and time jimena (where applicable) has been applied. - Medications Current Medications: Current Medications Acetaminophen (Tylenol) 650 mg PO Q4H PRN PRN Reason: Mild Pain (1-3) Stop: 12/06/19 19:14 Acetaminophen (Tylenol) 650 mg PO Q4H PRN PRN Reason: TEMP ABOVE 101 Stop: 12/09/19 16:12 Alendronate Sodium (Fosamax) 70 mg PO QTHUR@0630 [facility] Stop: 11/12/19 06:29 Last Admin: 10/25/19 06:27 Dose: 70 mg Donepezil HCl (Aricept) 10 mg PO [facility] Last Admin: 10/28/19 21:33 Dose: 10 mg
[2019-10-29] MEDS: Multivitamin w/ Minerals Tab PO SCH (08:04)
--- NOTE | 2019-10-29 10:29 | Progress Notes ---
DATE: 10/29/2019 SUBJECTIVE: Chart was reviewed and the patient interviewed. Also discussed the patient's condition with the staff and reviewed records and labs. Patient's affect is brighter. The patient is less agitated and less irritable. The patient also is interacting more with peers and with others. She is still pleasantly confused. Otherwise, the patient is compliant with taking her medications with no side effects of medications. ASSESSMENT: The patient is still considered to be gravely disabled and waiting for placement. TREATMENT PLAN: Continue current treatment and medications and continue to work on her placement issue. JOB# [id number]
--- NOTE | 2019-10-29 12:30 | Internal Medicine Prog Note ---
Internal Medicine Subjective - Subjective Patient seen and examined:: with staff, chart reviewed Patient is:: awake, verbal, interactive, ambulating, confused Per staff patient has:: no adverse event, no episodes of fall, eating well, tolerating meds Internal Medicine Objective - Results Recent Labs: Laboratory Last Values POC Glucose 112 MG/DL (70 - 105) H 08/11/19 21:00 Triglycerides 162 mg/dL (<150) H 12/31/18 08:04 Cholesterol 234 mg/dL (<200) H 12/31/18 08:04 LDL Cholesterol Direct 155 mg/dL (75-193) 12/31/18 08:04 HDL Cholesterol 62 mg/dL (23-92) 12/31/18 08:04 - Physical Exam Vitals and I&O: Vital Signs Temp 97.6 F 10/29/19 05:47 Pulse 68 10/29/19 05:47 Resp 18 10/29/19 08:00 BP 106/70 10/29/19 05:47 Pulse Ox 96 10/29/19 05:47 Intake & Output 10/28/19 10/29/19 10/29/19 18:59 06:59 18:59 Intake Total 1000 300 Balance 1000 300 Intake: Oral 1000 300 Other: # Voids 4 1 # Bowel Movements 1 0 Stool Characteristics Formed Brown Active Medications: Current Medications Acetaminophen (Tylenol) 650 mg PO Q4H PRN PRN Reason: Mild Pain (1-3) Stop: 12/06/19 19:14 Acetaminophen (Tylenol) 650 mg PO Q4H PRN PRN Reason: TEMP ABOVE 101 Stop: 12/09/19 16:12 Alendronate Sodium (Fosamax) 70 mg PO QTHUR@0630 [facility] Stop: 11/12/19 06:29 Last Admin: 10/25/19 06:27 Dose: 70 mg Donepezil HCl (Aricept) 10 mg PO [facility] Last Admin: 10/28/19 21:33 Dose: 10 mg General: demented, thin HEENT: NC/AT, PERRLA, EOMI Neck: Supple, No JVD, No thyromegaly Lungs: CTAB Cardiovascular: RRR, Normal S1, Normal S2, with murmur Abdomen: soft, thin, non-distended, positive bowel sound Extremities: excoriation Neurological: no change Internal Medicine Assmt/Plan - Assessment Assessment: alzheimers dementia elevated chol djd osteoporosis ho old left hip fx - Plan Plan: medically stable fall precaution nutritional support cont on calcium supplemetn - resume fosamax will cont to follow tom rn Nutritional Asmnt/Malnutr-PDOC - Dietary Evaluation Malnutrition Findings (Please click <Entered> for more info): Nutritional Asmnt/Malnutrition Start: 01/04/19 09: 50 Text: Status: Complete Freq: Protocol: Document 01/04/19 14:59 LCCOREY (Rec: 01/04/19 15:06 LCHENG [email or web address]) Nutritional Asmnt/Malnutrition Patient General Information Nutritional Screening Moderate Risk Diagnosis psychosis Pertinent Medical Hx/Surgical Hx dementia, DJD, osteoporosis Subjective Information pt seen lying in bed, awake and alert, stated food has beed great. Pt is not a big eater. Encourage to eat balanced meals and pt agreed with it. Per EMR, PO intake 75 -100% Current Diet Order/ Nutrition Support regular Pertinent Medications reviewed Pertinent Labs 12/31 reviewed Nutritional Hx/Data Height 1.65 m Height (Calculated Centimeters) 165.1 Current Weight (lbs) 74.843 kg Weight (Calculated Kilograms) 74.8 Weight (Calculated Grams) 66161.7 [place] Body Weight 125 Body Mass Index (BMI) 27.4 Weight Status Overweight GI Symptoms GI Symptoms None Last BM 01/04 x 2 Difficult in: None Skin Integrity/Comment: intact Current %PO Good (75-100%) Estimated Nutritional Goals BEE in Kcals: Using Current wt Calories/Kcals/Kg 23-27 Kcals Calculated 8009-1416 Protein: Using Current wt Protein g/k.8 Protein Calculated 60 Fluid: ml 1725-1998ml (1ml/kcal) Nutritional Problem No current Nutrition Prob Problem N/A Malnutrition Alert Is there a minimum of two criteria No selected? Query Text:Check all the applicable criteria. A minimum of two criteria are recommended for diagnosis of either severe or non-severe malnutrition. Malnutrition Related to Morbid Obesity Malnutrition related to morbid obesity No Intervention/Recommendation Comments 1. Continue with regular diet as ordered. 2. Monitor PO intake, wt, labs and skin integrity 3. F/U as low risk in 7 days Expected Outcomes/Goals Expected Outcomes/Goals 1. PO intake to meet at least 75% of nutritional needs. 2. Wt stability, skin to remain intact, labs to approach WNL.
[2019-10-30] MEDS: Multivitamin w/ Minerals Tab PO SCH (09:35)
--- NOTE | 2019-10-30 10:25 | Progress Notes ---
DATE: SUBJECTIVE: Chart reviewed and the patient interviewed. Also discussed the patient's condition with the staff and reviewed records and labs. The patient is still calm and cooperative and compliant with taking her medications. The patient is exhibiting no major behavioral issues and she is compliant with taking her medications. She is still slightly confused and considered to be gravely disabled. ASSESSMENT: The patient is still gravely disabled. TREATMENT PLAN: Plan is to discharge the patient when placement is available and one legal issue is resolved. [facility]# [id number]
--- NOTE | 2019-10-30 12:23 | Internal Medicine Prog Note ---
Internal Medicine Subjective - Subjective Patient seen and examined:: with staff, chart reviewed Patient is:: awake, verbal, interactive, ambulating, confused Per staff patient has:: no adverse event, no episodes of fall, eating well, tolerating meds Internal Medicine Objective - Results Recent Labs: Laboratory Last Values POC Glucose 112 MG/DL (70 - 105) H 08/11/19 21:00 Triglycerides 162 mg/dL (<150) H 12/31/18 08:04 Cholesterol 234 mg/dL (<200) H 12/31/18 08:04 LDL Cholesterol Direct 155 mg/dL (75-193) 12/31/18 08:04 HDL Cholesterol 62 mg/dL (23-92) 12/31/18 08:04 - Physical Exam Vitals and I&O: Vital Signs Temp 98.2 F 10/30/19 06:08 Pulse 61 10/30/19 06:08 Resp 16 10/30/19 08:00 BP 132/78 10/30/19 06:08 Pulse Ox 18 10/30/19 06:08 Intake & Output 10/29/19 10/30/19 10/30/19 18:59 06:59 18:59 Intake Total 800 240 Balance 800 240 Intake: Oral 800 240 Other: # Voids 4 3 # Bowel Movements 1 0 Active Medications: Current Medications Acetaminophen (Tylenol) 650 mg PO Q4H PRN PRN Reason: Mild Pain (1-3) Stop: 12/06/19 19:14 Acetaminophen (Tylenol) 650 mg PO Q4H PRN PRN Reason: TEMP ABOVE 101 Stop: 12/09/19 16:12 Alendronate Sodium (Fosamax) 70 mg PO QTHUR@0630 [facility] Stop: 11/12/19 06:29 Last Admin: 10/25/19 06:27 Dose: 70 mg Donepezil HCl (Aricept) 10 mg PO [facility] Last Admin: 10/29/19 20:39 Dose: 10 mg General: demented, thin HEENT: NC/AT, PERRLA, EOMI Neck: Supple, No JVD, No thyromegaly Lungs: CTAB Cardiovascular: RRR, Normal S1, Normal S2, with murmur Abdomen: soft, thin, non-distended, positive bowel sound Extremities: excoriation Neurological: no change Internal Medicine Assmt/Plan - Assessment Assessment: alzheimers dementia elevated chol djd osteoporosis ho old left hip fx - Plan Plan: medically stable fall precaution nutritional support cont on calcium supplemetn - resume fosamax will cont to follow tom rn Nutritional Asmnt/Malnutr-PDOC - Dietary Evaluation Malnutrition Findings (Please click <Entered> for more info): Nutritional Asmnt/Malnutrition Start: 01/04/19 09: 50 Text: Status: Complete Freq: Protocol: Document 01/04/19 14:59 LCHENG (Rec: 01/04/19 15:06 LCHENG [email or web address]) Nutritional Asmnt/Malnutrition Patient General Information Nutritional Screening Moderate Risk Diagnosis psychosis Pertinent Medical Hx/Surgical Hx dementia, DJD, osteoporosis Subjective Information pt seen lying in bed, awake and alert, stated food has beed great. Pt is not a big eater. Encourage to eat balanced meals and pt agreed with it. Per EMR, PO intake 75 -100% Current Diet Order/ Nutrition Support regular Pertinent Medications reviewed Pertinent Labs 12/31 reviewed Nutritional Hx/Data Height 1.65 m Height (Calculated Centimeters) 165.1 Current Weight (lbs) 74.843 kg Weight (Calculated Kilograms) 74.8 Weight (Calculated Grams) 85854.7 [place] Body Weight 125 Body Mass Index (BMI) 27.4 Weight Status Overweight GI Symptoms GI Symptoms None Last BM 01/04 x 2 Difficult in: None Skin Integrity/Comment: intact Current %PO Good (75-100%) Estimated Nutritional Goals BEE in Kcals: Using Current wt Calories/Kcals/Kg 23-27 Kcals Calculated 1105-6219 Protein: Using Current wt Protein g/k.8 Protein Calculated 60 Fluid: ml 1725-1998ml (1ml/kcal) Nutritional Problem No current Nutrition Prob Problem N/A Malnutrition Alert Is there a minimum of two criteria No selected? Query Text:Check all the applicable criteria. A minimum of two criteria are recommended for diagnosis of either severe or non-severe malnutrition. Malnutrition Related to Morbid Obesity Malnutrition related to morbid obesity No Intervention/Recommendation Comments 1. Continue with regular diet as ordered. 2. Monitor PO intake, wt, labs and skin integrity 3. F/U as low risk in 7 days Expected Outcomes/Goals Expected Outcomes/Goals 1. PO intake to meet at least 75% of nutritional needs. 2. Wt stability, skin to remain intact, labs to approach WNL.
[2019-10-31] MEDS: Multivitamin w/ Minerals Tab PO SCH (09:04)
--- NOTE | 2019-10-31 13:03 | Internal Medicine Prog Note ---
Internal Medicine Subjective - Subjective Patient seen and examined:: with staff, chart reviewed Patient is:: awake, verbal, interactive, ambulating, confused Per staff patient has:: no adverse event, no episodes of fall, eating well, tolerating meds Internal Medicine Objective - Results Recent Labs: Laboratory Last Values POC Glucose 112 MG/DL (70 - 105) H 08/11/19 21:00 Triglycerides 162 mg/dL (<150) H 12/31/18 08:04 Cholesterol 234 mg/dL (<200) H 12/31/18 08:04 LDL Cholesterol Direct 155 mg/dL (75-193) 12/31/18 08:04 HDL Cholesterol 62 mg/dL (23-92) 12/31/18 08:04 - Physical Exam Vitals and I&O: Vital Signs Temp 97.8 F 10/31/19 05:26 Pulse 61 10/31/19 05:26 Resp 20 10/31/19 05:26 BP 123/76 10/31/19 05:26 Pulse Ox 95 10/31/19 05:26 Intake & Output 10/30/19 10/31/19 10/31/19 18:59 06:59 18:59 Intake Total 1200 Balance 1200 Intake: Oral 1200 Other: # Voids 3 3 # Bowel Movements 0 0 Active Medications: Current Medications Acetaminophen (Tylenol) 650 mg PO Q4H PRN PRN Reason: Mild Pain (1-3) Stop: 12/06/19 19:14 Acetaminophen (Tylenol) 650 mg PO Q4H PRN PRN Reason: TEMP ABOVE 101 Stop: 12/09/19 16:12 Alendronate Sodium (Fosamax) 70 mg PO QTHUR@0630 [facility] Stop: 11/12/19 06:29 Last Admin: 10/25/19 06:27 Dose: 70 mg Donepezil HCl (Aricept) 10 mg PO [facility] Last Admin: 10/30/19 20:51 Dose: 10 mg General: demented, thin HEENT: NC/AT, PERRLA, EOMI Neck: Supple, No JVD, No thyromegaly Lungs: CTAB Cardiovascular: RRR, Normal S1, Normal S2, with murmur Abdomen: soft, thin, non-distended, positive bowel sound Extremities: excoriation Neurological: no change Internal Medicine Assmt/Plan - Assessment Assessment: alzheimers dementia elevated chol djd osteoporosis ho old left hip fx - Plan Plan: medically stable fall precaution nutritional support cont on calcium supplemetn - resume fosamax will cont to follow tom rn Nutritional Asmnt/Malnutr-PDOC - Dietary Evaluation Malnutrition Findings (Please click <Entered> for more info): Nutritional Asmnt/Malnutrition Start: 01/04/19 09: 50 Text: Status: Complete Freq: Protocol: Document 01/04/19 14:59 [email or web address] (Rec: 01/04/19 15:06 LCHENG [id number]) Nutritional Asmnt/Malnutrition Patient General Information Nutritional Screening Moderate Risk Diagnosis psychosis Pertinent Medical Hx/Surgical Hx dementia, DJD, osteoporosis Subjective Information pt seen lying in bed, awake and alert, stated food has beed great. Pt is not a big eater. Encourage to eat balanced meals and pt agreed with it. Per EMR, PO intake 75 -100% Current Diet Order/ Nutrition Support regular Pertinent Medications reviewed Pertinent Labs 12/31 reviewed Nutritional Hx/Data Height 1.65 m Height (Calculated Centimeters) 165.1 Current Weight (lbs) 74.843 kg Weight (Calculated Kilograms) 74.8 Weight (Calculated Grams) 14280.7 [place] Body Weight 125 Body Mass Index (BMI) 27.4 Weight Status Overweight GI Symptoms GI Symptoms None Last BM 01/04 x 2 Difficult in: None Skin Integrity/Comment: intact Current %PO Good (75-100%) Estimated Nutritional Goals BEE in Kcals: Using Current wt Calories/Kcals/Kg 23-27 Kcals Calculated 3134-0804 Protein: Using Current wt Protein g/k.8 Protein Calculated 60 Fluid: ml 1725-1998ml (1ml/kcal) Nutritional Problem No current Nutrition Prob Problem N/A Malnutrition Alert Is there a minimum of two criteria No selected? Query Text:Check all the applicable criteria. A minimum of two criteria are recommended for diagnosis of either severe or non-severe malnutrition. Malnutrition Related to Morbid Obesity Malnutrition related to morbid obesity No Intervention/Recommendation Comments 1. Continue with regular diet as ordered. 2. Monitor PO intake, wt, labs and skin integrity 3. F/U as low risk in 7 days Expected Outcomes/Goals Expected Outcomes/Goals 1. PO intake to meet at least 75% of nutritional needs. 2. Wt stability, skin to remain intact, labs to approach WNL.
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
[2019-11-01] MEDS: Multivitamin w/ Minerals Tab PO SCH (08:14)
--- NOTE | 2019-11-01 12:44 | Internal Medicine Prog Note ---
Internal Medicine Subjective - Subjective Patient seen and examined:: with staff, chart reviewed Patient is:: awake, verbal, interactive, ambulating, confused Per staff patient has:: no adverse event, no episodes of fall, eating well, tolerating meds Internal Medicine Objective - Results Recent Labs: Laboratory Last Values POC Glucose 112 MG/DL (70 - 105) H 08/11/19 21:00 Triglycerides 162 mg/dL (<150) H 12/31/18 08:04 Cholesterol 234 mg/dL (<200) H 12/31/18 08:04 LDL Cholesterol Direct 155 mg/dL (75-193) 12/31/18 08:04 HDL Cholesterol 62 mg/dL (23-92) 12/31/18 08:04 - Physical Exam Vitals and I&O: Vital Signs Temp 98.8 F 11/01/19 06:46 Pulse 92 11/01/19 06:46 Resp 19 11/01/19 08:00 BP 106/68 11/01/19 06:46 Pulse Ox 95 11/01/19 06:46 Intake & Output 10/31/19 11/01/19 11/01/19 18:59 06:59 18:59 Intake Total 1200 240 Balance 1200 240 Intake: Oral 1200 240 Other: # Voids 2 # Bowel Movements 1 0 Active Medications: Current Medications Acetaminophen (Tylenol) 650 mg PO Q4H PRN PRN Reason: Mild Pain (1-3) Stop: 12/06/19 19:14 Acetaminophen (Tylenol) 650 mg PO Q4H PRN PRN Reason: TEMP ABOVE 101 Stop: 12/09/19 16:12 Alendronate Sodium (Fosamax) 70 mg PO QTHUR@0630 [facility] Stop: 11/12/19 06:29 Last Admin: 11/01/19 06:28 Dose: 70 mg Donepezil HCl (Aricept) 10 mg PO HS [facility] Last Admin: 10/31/19 21:06 Dose: 10 mg General: demented, thin HEENT: NC/AT, PERRLA, EOMI Neck: Supple, No JVD, No thyromegaly Lungs: CTAB Cardiovascular: RRR, Normal S1, Normal S2, with murmur Abdomen: soft, thin, non-distended, positive bowel sound Extremities: excoriation Neurological: no change Internal Medicine Assmt/Plan - Assessment Assessment: alzheimers dementia elevated chol djd osteoporosis ho old left hip fx - Plan Plan: medically stable fall precaution nutritional support cont on calcium supplemetn - resume fosamax will cont to follow tom rn Nutritional Asmnt/Malnutr-PDOC - Dietary Evaluation Malnutrition Findings (Please click <Entered> for more info): Nutritional Asmnt/Malnutrition Start: 01/04/19 09: 50 Text: Status: Complete Freq: Protocol: Document 01/04/19 14:59 LCHENG (Rec: 01/04/19 15:06 LCHENG [email or web address]) Nutritional Asmnt/Malnutrition Patient General Information Nutritional Screening Moderate Risk Diagnosis psychosis Pertinent Medical Hx/Surgical Hx dementia, DJD, osteoporosis Subjective Information pt seen lying in bed, awake and alert, stated food has beed great. Pt is not a big eater. Encourage to eat balanced meals and pt agreed with it. Per EMR, PO intake 75 -100% Current Diet Order/ Nutrition Support regular Pertinent Medications reviewed Pertinent Labs 12/31 reviewed Nutritional Hx/Data Height 1.65 m Height (Calculated Centimeters) 165.1 Current Weight (lbs) 74.843 kg Weight (Calculated Kilograms) 74.8 Weight (Calculated Grams) 92905.7 [place] Body Weight 125 Body Mass Index (BMI) 27.4 Weight Status Overweight GI Symptoms GI Symptoms None Last BM 01/04 x 2 Difficult in: None Skin Integrity/Comment: intact Current %PO Good (75-100%) Estimated Nutritional Goals BEE in Kcals: Using Current wt Calories/Kcals/Kg 23-27 Kcals Calculated 0976-3372 Protein: Using Current wt Protein g/k.8 Protein Calculated 60 Fluid: ml 1725-1998ml (1ml/kcal) Nutritional Problem No current Nutrition Prob Problem N/A Malnutrition Alert Is there a minimum of two criteria No selected? Query Text:Check all the applicable criteria. A minimum of two criteria are recommended for diagnosis of either severe or non-severe malnutrition. Malnutrition Related to Morbid Obesity Malnutrition related to morbid obesity No Intervention/Recommendation Comments 1. Continue with regular diet as ordered. 2. Monitor PO intake, wt, labs and skin integrity 3. F/U as low risk in 7 days Expected Outcomes/Goals Expected Outcomes/Goals 1. PO intake to meet at least 75% of nutritional needs. 2. Wt stability, skin to remain intact, labs to approach WNL.
[2019-11-02] MEDS: Multivitamin w/ Minerals Tab PO SCH (08:55)
--- NOTE | 2019-11-02 12:51 | Internal Medicine Prog Note ---
Internal Medicine Subjective - Subjective Patient seen and examined:: with staff, chart reviewed Patient is:: awake, verbal, interactive, ambulating, confused Per staff patient has:: no adverse event, no episodes of fall, eating well, tolerating meds Internal Medicine Objective - Results Recent Labs: Laboratory Last Values POC Glucose 112 MG/DL (70 - 105) H 08/11/19 21:00 Triglycerides 162 mg/dL (<150) H 12/31/18 08:04 Cholesterol 234 mg/dL (<200) H 12/31/18 08:04 LDL Cholesterol Direct 155 mg/dL (75-193) 12/31/18 08:04 HDL Cholesterol 62 mg/dL (23-92) 12/31/18 08:04 - Physical Exam Vitals and I&O: Vital Signs Temp 97.5 F 11/02/19 05:53 Pulse 69 11/02/19 05:53 Resp 18 11/02/19 05:53 BP 125/66 11/02/19 05:53 Pulse Ox 97 11/02/19 05:53 Intake & Output 11/01/19 11/02/19 11/02/19 18:59 06:59 18:59 Intake Total 1000 240 Balance 1000 240 Intake: Oral 1000 240 Other: # Voids 4 2 # Bowel Movements 1 0 Active Medications: Current Medications Acetaminophen (Tylenol) 650 mg PO Q4H PRN PRN Reason: Mild Pain (1-3) Stop: 12/06/19 19:14 Acetaminophen (Tylenol) 650 mg PO Q4H PRN PRN Reason: TEMP ABOVE 101 Stop: 12/09/19 16:12 Alendronate Sodium (Fosamax) 70 mg PO QTHUR@0630 [facility] Stop: 11/12/19 06:29 Last Admin: 11/01/19 06:28 Dose: 70 mg Donepezil HCl (Aricept) 10 mg PO [facility] Last Admin: 11/01/19 21:20 Dose: 10 mg General: demented, thin HEENT: NC/AT, PERRLA, EOMI Neck: Supple, No JVD, No thyromegaly Lungs: CTAB Cardiovascular: RRR, Normal S1, Normal S2, with murmur Abdomen: soft, thin, non-distended, positive bowel sound Extremities: excoriation Neurological: no change Internal Medicine Assmt/Plan - Assessment Assessment: alzheimers dementia elevated chol djd osteoporosis ho old left hip fx - Plan Plan: medically stable fall precaution nutritional support cont on calcium supplemetn - resume fosamax will cont to follow tom rn Nutritional Asmnt/Malnutr-PDOC - Dietary Evaluation Malnutrition Findings (Please click <Entered> for more info): Nutritional Asmnt/Malnutrition Start: 01/04/19 09: 50 Text: Status: Complete Freq: Protocol: Document 01/04/19 14:59 LCHENG (Rec: 01/04/19 15:06 LCHENG [email or web address]) Nutritional Asmnt/Malnutrition Patient General Information Nutritional Screening Moderate Risk Diagnosis psychosis Pertinent Medical Hx/Surgical Hx dementia, DJD, osteoporosis Subjective Information pt seen lying in bed, awake and alert, stated food has beed great. Pt is not a big eater. Encourage to eat balanced meals and pt agreed with it. Per EMR, PO intake 75 -100% Current Diet Order/ Nutrition Support regular Pertinent Medications reviewed Pertinent Labs 12/31 reviewed Nutritional Hx/Data Height 1.65 m Height (Calculated Centimeters) 165.1 Current Weight (lbs) 74.843 kg Weight (Calculated Kilograms) 74.8 Weight (Calculated Grams) 73082.7 [place] Body Weight 125 Body Mass Index (BMI) 27.4 Weight Status Overweight GI Symptoms GI Symptoms None Last BM 01/04 x 2 Difficult in: None Skin Integrity/Comment: intact Current %PO Good (75-100%) Estimated Nutritional Goals BEE in Kcals: Using Current wt Calories/Kcals/Kg 23-27 Kcals Calculated 1186-5214 Protein: Using Current wt Protein g/k.8 Protein Calculated 60 Fluid: ml 1725-1998ml (1ml/kcal) Nutritional Problem No current Nutrition Prob Problem N/A Malnutrition Alert Is there a minimum of two criteria No selected? Query Text:Check all the applicable criteria. A minimum of two criteria are recommended for diagnosis of either severe or non-severe malnutrition. Malnutrition Related to Morbid Obesity Malnutrition related to morbid obesity No Intervention/Recommendation Comments 1. Continue with regular diet as ordered. 2. Monitor PO intake, wt, labs and skin integrity 3. F/U as low risk in 7 days Expected Outcomes/Goals Expected Outcomes/Goals 1. PO intake to meet at least 75% of nutritional needs. 2. Wt stability, skin to remain intact, labs to approach WNL.
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
[2019-11-03] MEDS: Multivitamin w/ Minerals Tab PO SCH (10:03)
--- NOTE | 2019-11-03 17:09 | Internal Medicine Prog Note ---
Internal Medicine Subjective - Subjective Patient seen and examined:: with staff, chart reviewed Patient is:: awake, verbal, interactive, ambulating, confused Per staff patient has:: no adverse event, no episodes of fall, eating well, tolerating meds Internal Medicine Objective - Results Recent Labs: Laboratory Last Values POC Glucose 112 MG/DL (70 - 105) H 08/11/19 21:00 Triglycerides 162 mg/dL (<150) H 12/31/18 08:04 Cholesterol 234 mg/dL (<200) H 12/31/18 08:04 LDL Cholesterol Direct 155 mg/dL (75-193) 12/31/18 08:04 HDL Cholesterol 62 mg/dL (23-92) 12/31/18 08:04 - Physical Exam Vitals and I&O: Vital Signs Temp 97.4 F 11/03/19 14:00 Pulse 54 11/03/19 14:00 Resp 18 11/03/19 14:00 BP 132/77 11/03/19 14:00 Pulse Ox 98 11/03/19 14:00 Intake & Output 11/02/19 11/03/19 11/03/19 18:59 06:59 18:59 Intake Total 60 Balance 60 Intake: Oral 60 Other: # Voids 1 # Bowel Movements 0 Active Medications: Current Medications Acetaminophen (Tylenol) 650 mg PO Q4H PRN PRN Reason: Mild Pain (1-3) Stop: 12/06/19 19:14 Acetaminophen (Tylenol) 650 mg PO Q4H PRN PRN Reason: TEMP ABOVE 101 Stop: 12/09/19 16:12 Alendronate Sodium (Fosamax) 70 mg PO QTHUR@0630 [facility] Stop: 11/12/19 06:29 Last Admin: 11/01/19 06:28 Dose: 70 mg Donepezil HCl (Aricept) 10 mg PO [facility] Last Admin: 11/02/19 21:10 Dose: 10 mg General: demented, thin HEENT: NC/AT, PERRLA, EOMI Neck: Supple, No JVD, No thyromegaly Lungs: CTAB Cardiovascular: RRR, Normal S1, Normal S2, with murmur Abdomen: soft, thin, non-distended, positive bowel sound Extremities: excoriation Neurological: no change Internal Medicine Assmt/Plan - Assessment Assessment: alzheimers dementia elevated chol djd osteoporosis ho old left hip fx - Plan Plan: medically stable fall precaution nutritional support cont on calcium supplemetn - resume fosamax will cont to follow tom rn Nutritional Asmnt/Malnutr-PDOC - Dietary Evaluation Malnutrition Findings (Please click <Entered> for more info): Nutritional Asmnt/Malnutrition Start: 01/04/19 09: 50 Text: Status: Complete Freq: Protocol: Document 01/04/19 14:59 TARIK (Rec: 01/04/19 15:06 LCHENG [email or web address]) Nutritional Asmnt/Malnutrition Patient General Information Nutritional Screening Moderate Risk Diagnosis psychosis Pertinent Medical Hx/Surgical Hx dementia, DJD, osteoporosis Subjective Information pt seen lying in bed, awake and alert, stated food has beed great. Pt is not a big eater. Encourage to eat balanced meals and pt agreed with it. Per EMR, PO intake 75 -100% Current Diet Order/ Nutrition Support regular Pertinent Medications reviewed Pertinent Labs 12/31 reviewed Nutritional Hx/Data Height 1.65 m Height (Calculated Centimeters) 165.1 Current Weight (lbs) 74.843 kg Weight (Calculated Kilograms) 74.8 Weight (Calculated Grams) 16581.7 [place] Body Weight 125 Body Mass Index (BMI) 27.4 Weight Status Overweight GI Symptoms GI Symptoms None Last BM 01/04 x 2 Difficult in: None Skin Integrity/Comment: intact Current %PO Good (75-100%) Estimated Nutritional Goals BEE in Kcals: Using Current wt Calories/Kcals/Kg 23-27 Kcals Calculated 8217-9818 Protein: Using Current wt Protein g/k.8 Protein Calculated 60 Fluid: ml 1725-1998ml (1ml/kcal) Nutritional Problem No current Nutrition Prob Problem N/A Malnutrition Alert Is there a minimum of two criteria No selected? Query Text:Check all the applicable criteria. A minimum of two criteria are recommended for diagnosis of either severe or non-severe malnutrition. Malnutrition Related to Morbid Obesity Malnutrition related to morbid obesity No Intervention/Recommendation Comments 1. Continue with regular diet as ordered. 2. Monitor PO intake, wt, labs and skin integrity 3. F/U as low risk in 7 days Expected Outcomes/Goals Expected Outcomes/Goals 1. PO intake to meet at least 75% of nutritional needs. 2. Wt stability, skin to remain intact, labs to approach WNL.
--- NOTE | 2019-11-03 23:25 | Progress Notes ---
DATE: 11/03/2019 SUBJECTIVE: Covering for Dr. Mason. No acute events overnight. Today on [id number] evaluation, no SI, reporting mild anxiety. MENTAL STATUS EXAMINATION: Stable. Gravely disabled. ASSESSMENT AND PLAN: At midday, awaiting transition. JOB# [id number]
[2019-11-04] MEDS: Multivitamin w/ Minerals Tab PO SCH (10:03)
--- NOTE | 2019-11-04 13:12 | Internal Medicine Prog Note ---
Internal Medicine Subjective - Subjective Patient seen and examined:: with staff, chart reviewed Patient is:: awake, verbal, interactive, ambulating, confused Per staff patient has:: no adverse event, no episodes of fall, eating well, tolerating meds Internal Medicine Objective - Results Recent Labs: Laboratory Last Values POC Glucose 112 MG/DL (70 - 105) H 08/11/19 21:00 Triglycerides 162 mg/dL (<150) H 12/31/18 08:04 Cholesterol 234 mg/dL (<200) H 12/31/18 08:04 LDL Cholesterol Direct 155 mg/dL (75-193) 12/31/18 08:04 HDL Cholesterol 62 mg/dL (23-92) 12/31/18 08:04 - Physical Exam Vitals and I&O: Vital Signs Temp 98.0 F 11/04/19 05:57 Pulse 76 11/04/19 05:57 Resp 19 11/04/19 05:57 BP 110/77 11/04/19 05:57 Pulse Ox 96 11/04/19 05:57 Intake & Output 11/03/19 11/04/19 11/04/19 17:59 06:59 18:59 Intake Total Balance Intake: Oral Other: # Voids # Bowel Movements Active Medications: Current Medications Acetaminophen (Tylenol) 650 mg PO Q4H PRN PRN Reason: Mild Pain (1-3) Stop: 12/06/19 19:14 Acetaminophen (Tylenol) 650 mg PO Q4H PRN PRN Reason: TEMP ABOVE 101 Stop: 12/09/19 16:12 Alendronate Sodium (Fosamax) 70 mg PO QTHUR@0630 [facility] Stop: 11/12/19 06:29 Last Admin: 11/01/19 06:28 Dose: 70 mg Donepezil HCl (Aricept) 10 mg PO [facility] Last Admin: 11/03/19 21:14 Dose: 10 mg General: demented, thin HEENT: NC/AT, PERRLA, EOMI Neck: Supple, No JVD, No thyromegaly Lungs: CTAB Cardiovascular: RRR, Normal S1, Normal S2, with murmur Abdomen: soft, thin, non-distended, positive bowel sound Extremities: excoriation Neurological: no change Internal Medicine Assmt/Plan - Assessment Assessment: alzheimers dementia elevated chol djd osteoporosis ho old left hip fx - Plan Plan: medically stable fall precaution nutritional support cont on calcium supplemetn - resume fosamax will cont to follow tom rn Nutritional Asmnt/Malnutr-PDOC - Dietary Evaluation Malnutrition Findings (Please click <Entered> for more info): Nutritional Asmnt/Malnutrition Start: 01/04/19 09: 50 Text: Status: Complete Freq: Protocol: Document 01/04/19 14:59 TARIK (Rec: 01/04/19 15:06 LCCOREY [id number]) Nutritional Asmnt/Malnutrition Patient General Information Nutritional Screening Moderate Risk Diagnosis psychosis Pertinent Medical Hx/Surgical Hx dementia, DJD, osteoporosis Subjective Information pt seen lying in bed, awake and alert, stated food has beed great. Pt is not a big eater. Encourage to eat balanced meals and pt agreed with it. Per EMR, PO intake 75 -100% Current Diet Order/ Nutrition Support regular Pertinent Medications reviewed Pertinent Labs 12/31 reviewed Nutritional Hx/Data Height 1.65 m Height (Calculated Centimeters) 165.1 Current Weight (lbs) 74.843 kg Weight (Calculated Kilograms) 74.8 Weight (Calculated Grams) 29538.7 [place] Body Weight 125 Body Mass Index (BMI) 27.4 Weight Status Overweight GI Symptoms GI Symptoms None Last BM 01/04 x 2 Difficult in: None Skin Integrity/Comment: intact Current %PO Good (75-100%) Estimated Nutritional Goals BEE in Kcals: Using Current wt Calories/Kcals/Kg 23-27 Kcals Calculated 1812-8802 Protein: Using Current wt Protein g/k.8 Protein Calculated 60 Fluid: ml 1725-1998ml (1ml/kcal) Nutritional Problem No current Nutrition Prob Problem N/A Malnutrition Alert Is there a minimum of two criteria No selected? Query Text:Check all the applicable criteria. A minimum of two criteria are recommended for diagnosis of either severe or non-severe malnutrition. Malnutrition Related to Morbid Obesity Malnutrition related to morbid obesity No Intervention/Recommendation Comments 1. Continue with regular diet as ordered. 2. Monitor PO intake, wt, labs and skin integrity 3. F/U as low risk in 7 days Expected Outcomes/Goals Expected Outcomes/Goals 1. PO intake to meet at least 75% of nutritional needs. 2. Wt stability, skin to remain intact, labs to approach WNL.
--- NOTE | 2019-11-04 23:37 | Progress Notes ---
DATE: 11/04/[address] Mason. Today on fbgh-in-ilde evaluation, the patient denies any side effects, slept well last night. Continues to be confused with ____. ASSESSMENT AND PLAN: Severe dementia, awaiting transition to lower level of care when bed available. JOB# [id number]
[2019-11-05] MEDS: Multivitamin w/ Minerals Tab PO SCH (08:23)
--- NOTE | 2019-11-05 12:51 | Internal Medicine Prog Note ---
Internal Medicine Subjective - Subjective Patient seen and examined:: with staff, chart reviewed Patient is:: awake, verbal, interactive, ambulating, confused Per staff patient has:: no adverse event, no episodes of fall, eating well, tolerating meds Internal Medicine Objective - Results Recent Labs: Laboratory Last Values POC Glucose 112 MG/DL (70 - 105) H 08/11/19 21:00 Triglycerides 162 mg/dL (<150) H 12/31/18 08:04 Cholesterol 234 mg/dL (<200) H 12/31/18 08:04 LDL Cholesterol Direct 155 mg/dL (75-193) 12/31/18 08:04 HDL Cholesterol 62 mg/dL (23-92) 12/31/18 08:04 - Physical Exam Vitals and I&O: Vital Signs Temp 96.9 F 11/05/19 06:29 Pulse 57 11/05/19 06:29 Resp 20 11/05/19 08:00 BP 93/66 11/05/19 06:29 Pulse Ox 100 11/05/19 06:29 Intake & Output 11/04/19 11/05/19 11/05/19 18:59 06:59 18:59 Intake Total 1100 0 Balance 1100 0 Intake: Oral 1100 0 Other: # Voids 3 # Bowel Movements 1 0 Stool Characteristics Soft Active Medications: Current Medications Acetaminophen (Tylenol) 650 mg PO Q4H PRN PRN Reason: Mild Pain (1-3) Stop: 12/06/19 19:14 Acetaminophen (Tylenol) 650 mg PO Q4H PRN PRN Reason: TEMP ABOVE 101 Stop: 12/09/19 16:12 Alendronate Sodium (Fosamax) 70 mg PO QTHUR@0630 [facility] Stop: 11/12/19 06:29 Last Admin: 11/01/19 06:28 Dose: 70 mg Donepezil HCl (Aricept) 10 mg PO [facility] Last Admin: 11/04/19 21:01 Dose: 10 mg General: demented, thin HEENT: NC/AT, PERRLA, EOMI Neck: Supple, No JVD, No thyromegaly Lungs: CTAB Cardiovascular: RRR, Normal S1, Normal S2, with murmur Abdomen: soft, thin, non-distended, positive bowel sound Extremities: excoriation Neurological: no change Internal Medicine Assmt/Plan - Assessment Assessment: alzheimers dementia elevated chol djd osteoporosis ho old left hip fx - Plan Plan: medically stable fall precaution nutritional support cont on calcium supplemetn - resume fosamax will cont to follow tom rn Nutritional Asmnt/Malnutr-PDOC - Dietary Evaluation Malnutrition Findings (Please click <Entered> for more info): Nutritional Asmnt/Malnutrition Start: 01/04/19 09: 50 Text: Status: Complete Freq: Protocol: Document 01/04/19 14:59 TARIK (Rec: 01/04/19 15:06 LCHENG [id number]) Nutritional Asmnt/Malnutrition Patient General Information Nutritional Screening Moderate Risk Diagnosis psychosis Pertinent Medical Hx/Surgical Hx dementia, DJD, osteoporosis Subjective Information pt seen lying in bed, awake and alert, stated food has beed great. Pt is not a big eater. Encourage to eat balanced meals and pt agreed with it. Per EMR, PO intake 75 -100% Current Diet Order/ Nutrition Support regular Pertinent Medications reviewed Pertinent Labs 12/31 reviewed Nutritional Hx/Data Height 1.65 m Height (Calculated Centimeters) 165.1 Current Weight (lbs) 74.843 kg Weight (Calculated Kilograms) 74.8 Weight (Calculated Grams) 62142.7 [place] Body Weight 125 Body Mass Index (BMI) 27.4 Weight Status Overweight GI Symptoms GI Symptoms None Last BM 01/04 x 2 Difficult in: None Skin Integrity/Comment: intact Current %PO Good (75-100%) Estimated Nutritional Goals BEE in Kcals: Using Current wt Calories/Kcals/Kg 23-27 Kcals Calculated 5183-6644 Protein: Using Current wt Protein g/k.8 Protein Calculated 60 Fluid: ml 1725-1998ml (1ml/kcal) Nutritional Problem No current Nutrition Prob Problem N/A Malnutrition Alert Is there a minimum of two criteria No selected? Query Text:Check all the applicable criteria. A minimum of two criteria are recommended for diagnosis of either severe or non-severe malnutrition. Malnutrition Related to Morbid Obesity Malnutrition related to morbid obesity No Intervention/Recommendation Comments 1. Continue with regular diet as ordered. 2. Monitor PO intake, wt, labs and skin integrity 3. F/U as low risk in 7 days Expected Outcomes/Goals Expected Outcomes/Goals 1. PO intake to meet at least 75% of nutritional needs. 2. Wt stability, skin to remain intact, labs to approach WNL.
--- NOTE | 2019-11-05 19:12 | Progress Notes ---
DATE: 11/05/2019 SUBJECTIVE: Chart was reviewed and the patient interviewed. Also discussed the patient's condition with the staff and reviewed records and labs. The patient is still anxious and is still waiting eagerly for her going to placement. The patient also is still pleasantly confused and she is wandering around the unit on a confused state. The patient denies any intention to harm herself or others. Otherwise, the patient denies any side effects of medications, which is basically Aricept. ASSESSMENT: The patient is still considered to be gravely disabled. TREATMENT PLAN: Continue current treatment and current medications. Also, continue to work on discharge plans and on placement issue. JOB# [id number]
[2019-11-06] MEDS: Multivitamin w/ Minerals Tab PO SCH (08:36)
--- NOTE | 2019-11-06 13:07 | Internal Medicine Prog Note ---
Internal Medicine Subjective - Subjective Patient seen and examined:: with staff, chart reviewed Patient is:: awake, verbal, interactive, ambulating, confused Per staff patient has:: no adverse event, no episodes of fall, eating well, tolerating meds Internal Medicine Objective - Results Recent Labs: Laboratory Last Values POC Glucose 112 MG/DL (70 - 105) H 08/11/19 21:00 Triglycerides 162 mg/dL (<150) H 12/31/18 08:04 Cholesterol 234 mg/dL (<200) H 12/31/18 08:04 LDL Cholesterol Direct 155 mg/dL (75-193) 12/31/18 08:04 HDL Cholesterol 62 mg/dL (23-92) 12/31/18 08:04 - Physical Exam Vitals and I&O: Vital Signs Temp 97.8 F 11/06/19 05:53 Pulse 79 11/06/19 05:53 Resp 20 11/06/19 07:34 BP 113/62 11/06/19 05:53 Pulse Ox 96 11/06/19 05:53 Intake & Output 11/05/19 11/06/19 11/06/19 18:59 06:59 18:59 Intake Total 1300 360 Balance 1300 360 Intake: Oral 1300 360 Other: # Voids 3 2 # Bowel Movements 0 0 Active Medications: Current Medications Acetaminophen (Tylenol) 650 mg PO Q4H PRN PRN Reason: Mild Pain (1-3) Stop: 12/06/19 19:14 Acetaminophen (Tylenol) 650 mg PO Q4H PRN PRN Reason: TEMP ABOVE 101 Stop: 12/09/19 16:12 Alendronate Sodium (Fosamax) 70 mg PO QTHUR@0630 [facility] Stop: 11/12/19 06:29 Last Admin: 11/01/19 06:28 Dose: 70 mg Donepezil HCl (Aricept) [address] [facility] Last Admin: 11/05/19 20:38 Dose: 10 mg General: demented, thin HEENT: NC/AT, PERRLA, EOMI Neck: Supple, No JVD, No thyromegaly Lungs: CTAB Cardiovascular: RRR, Normal S1, Normal S2, with murmur Abdomen: soft, thin, non-distended, positive bowel sound Extremities: excoriation Neurological: no change Internal Medicine Assmt/Plan - Assessment Assessment: alzheimers dementia elevated chol djd osteoporosis ho old left hip fx - Plan Plan: medically stable fall precaution nutritional support cont on calcium supplemetn - resume fosamax will cont to follow tom rn Nutritional Asmnt/Malnutr-PDOC - Dietary Evaluation Malnutrition Findings (Please click <Entered> for more info): Nutritional Asmnt/Malnutrition Start: 01/04/19 09: 50 Text: Status: Complete Freq: Protocol: Document 01/04/19 14:59 LCHENG (Rec: 01/04/19 15:06 LCHENG [email or web address]) Nutritional Asmnt/Malnutrition Patient General Information Nutritional Screening Moderate Risk Diagnosis psychosis Pertinent Medical Hx/Surgical Hx dementia, DJD, osteoporosis Subjective Information pt seen lying in bed, awake and alert, stated food has beed great. Pt is not a big eater. Encourage to eat balanced meals and pt agreed with it. Per EMR, PO intake 75 -100% Current Diet Order/ Nutrition Support regular Pertinent Medications reviewed Pertinent Labs 12/31 reviewed Nutritional Hx/Data Height 1.65 m Height (Calculated Centimeters) 165.1 Current Weight (lbs) 74.843 kg Weight (Calculated Kilograms) 74.8 Weight (Calculated Grams) 99954.7 [place] Body Weight 125 Body Mass Index (BMI) 27.4 Weight Status Overweight GI Symptoms GI Symptoms None Last BM 01/04 x 2 Difficult in: None Skin Integrity/Comment: intact Current %PO Good (75-100%) Estimated Nutritional Goals BEE in Kcals: Using Current wt Calories/Kcals/Kg 23-27 Kcals Calculated 0930-8068 Protein: Using Current wt Protein g/k.8 Protein Calculated 60 Fluid: ml 1725-1998ml (1ml/kcal) Nutritional Problem No current Nutrition Prob Problem N/A Malnutrition Alert Is there a minimum of two criteria No selected? Query Text:Check all the applicable criteria. A minimum of two criteria are recommended for diagnosis of either severe or non-severe malnutrition. Malnutrition Related to Morbid Obesity Malnutrition related to morbid obesity No Intervention/Recommendation Comments 1. Continue with regular diet as ordered. 2. Monitor PO intake, wt, labs and skin integrity 3. F/U as low risk in 7 days Expected Outcomes/Goals Expected Outcomes/Goals 1. PO intake to meet at least 75% of nutritional needs. 2. Wt stability, skin to remain intact, labs to approach WNL.
--- NOTE | 2019-11-06 19:45 | Progress Notes ---
DATE: 11/06/2019 SUBJECTIVE: Chart was reviewed and the patient interviewed. Also discussed the patient's condition with the staff and reviewed records and labs. The patient is still wandering around the unit with her walker in good mood and happy and smiling appropriately and joking with others, but at the same time in a confused state and disorganized thoughts. The patient also still needs redirections at times. Otherwise, the patient is compliant with her medications with no side effects of medications. ASSESSMENT: The patient is still considered to be gravely disabled. TREATMENT PLAN: We will continue monitoring her behavior and continue to work on her discharge plans and placement issue. JOB# [id number]
--- NOTE | 2019-11-07 06:49 | Progress Notes ---
DATE: 11/07/2019 SUBJECTIVE: Chart was reviewed and the patient interviewed. Also discussed the patient's condition with the staff and reviewed records and labs. The patient continued to be anxious and is still waiting for placement and for discharge, but at the same time, she is cooperative with her treatment and no major behavioral issues. The patient also is interacting appropriately with peers and others. The patient denies any hallucinations or delusions. She is also taking her medications with no side effects of Aricept. The patient is walking around the unit with a walker. No new labs available for review. ASSESSMENT: The patient is still considered to be gravely disabled and waiting for placement. TREATMENT PLAN: Continue monitoring her behavior. Also, continue to work with case mgr in regard to discharge plans and placement issue. JOB# [id number]
[2019-11-07] MEDS: Multivitamin w/ Minerals Tab PO SCH (08:59)
--- NOTE | 2019-11-07 13:06 | Internal Medicine Prog Note ---
Internal Medicine Subjective - Subjective Patient seen and examined:: with staff, chart reviewed Patient is:: awake, verbal, interactive, ambulating, confused Per staff patient has:: no adverse event, no episodes of fall, eating well, tolerating meds Internal Medicine Objective - Results Recent Labs: Laboratory Last Values POC Glucose 112 MG/DL (70 - 105) H 08/11/19 21:00 Triglycerides 162 mg/dL (<150) H 12/31/18 08:04 Cholesterol 234 mg/dL (<200) H 12/31/18 08:04 LDL Cholesterol Direct 155 mg/dL (75-193) 12/31/18 08:04 HDL Cholesterol 62 mg/dL (23-92) 12/31/18 08:04 - Physical Exam Vitals and I&O: Vital Signs Temp 98.2 F 11/07/19 06:03 Pulse 65 11/07/19 06:03 Resp 20 11/07/19 07:49 BP 141/71 11/07/19 06:03 Pulse Ox 96 11/07/19 06:03 Intake & Output 11/06/19 11/07/19 11/07/19 18:59 06:59 18:59 Intake Total 1200 120 Balance 1200 120 Intake: Oral 1200 120 Other: # Voids 3 2 # Bowel Movements 0 0 Active Medications: Current Medications Acetaminophen (Tylenol) 650 mg PO Q4H PRN PRN Reason: Mild Pain (1-3) Stop: 12/06/19 19:14 Acetaminophen (Tylenol) 650 mg PO Q4H PRN PRN Reason: TEMP ABOVE 101 Stop: 12/09/19 16:12 Alendronate Sodium (Fosamax) 70 mg PO QTHUR@0630 [facility] Stop: 11/12/19 06:29 Last Admin: 11/01/19 06:28 Dose: 70 mg Donepezil HCl (Aricept) 10 mg PO HS [facility] Last Admin: 11/06/19 20:51 Dose: 10 mg General: demented, thin HEENT: NC/AT, PERRLA, EOMI Neck: Supple, No JVD, No thyromegaly Lungs: CTAB Cardiovascular: RRR, Normal S1, Normal S2, with murmur Abdomen: soft, thin, non-distended, positive bowel sound Extremities: excoriation Neurological: no change Internal Medicine Assmt/Plan - Assessment Assessment: alzheimers dementia elevated chol djd osteoporosis ho old left hip fx - Plan Plan: medically stable fall precaution nutritional support cont on calcium supplemetn - resume fosamax will cont to follow tom rn Nutritional Asmnt/Malnutr-PDOC - Dietary Evaluation Malnutrition Findings (Please click <Entered> for more info): Nutritional Asmnt/Malnutrition Start: 01/04/19 09: 50 Text: Status: Complete Freq: Protocol: Document 01/04/19 14:59 LCHENG (Rec: 01/04/19 15:06 LCHENG [email or web address]) Nutritional Asmnt/Malnutrition Patient General Information Nutritional Screening Moderate Risk Diagnosis psychosis Pertinent Medical Hx/Surgical Hx dementia, DJD, osteoporosis Subjective Information pt seen lying in bed, awake and alert, stated food has beed great. Pt is not a big eater. Encourage to eat balanced meals and pt agreed with it. Per EMR, PO intake 75 -100% Current Diet Order/ Nutrition Support regular Pertinent Medications reviewed Pertinent Labs 12/31 reviewed Nutritional Hx/Data Height 1.65 m Height (Calculated Centimeters) 165.1 Current Weight (lbs) 74.843 kg Weight (Calculated Kilograms) 74.8 Weight (Calculated Grams) 80126.7 [place] Body Weight 125 Body Mass Index (BMI) 27.4 Weight Status Overweight GI Symptoms GI Symptoms None Last BM 01/04 x 2 Difficult in: None Skin Integrity/Comment: intact Current %PO Good (75-100%) Estimated Nutritional Goals BEE in Kcals: Using Current wt Calories/Kcals/Kg 23-27 Kcals Calculated 6172-4972 Protein: Using Current wt Protein g/k.8 Protein Calculated 60 Fluid: ml 1725-1998ml (1ml/kcal) Nutritional Problem No current Nutrition Prob Problem N/A Malnutrition Alert Is there a minimum of two criteria No selected? Query Text:Check all the applicable criteria. A minimum of two criteria are recommended for diagnosis of either severe or non-severe malnutrition. Malnutrition Related to Morbid Obesity Malnutrition related to morbid obesity No Intervention/Recommendation Comments 1. Continue with regular diet as ordered. 2. Monitor PO intake, wt, labs and skin integrity 3. F/U as low risk in 7 days Expected Outcomes/Goals Expected Outcomes/Goals 1. PO intake to meet at least 75% of nutritional needs. 2. Wt stability, skin to remain intact, labs to approach WNL.
[2019-11-08] MEDS: Multivitamin w/ Minerals Tab PO SCH (08:43)
--- NOTE | 2019-11-08 13:13 | Progress Notes ---
DATE: 11/08/2019 SUBJECTIVE: Chart was reviewed and the patient interviewed. Also discussed the patient's condition with the staff, and reviewed records and labs. The patient's affect is brighter. The patient is cooperative and compliant with taking her medications. The patient denies any side effects of medications. The patient also is still confused and needs redirections. Otherwise, no behavioral issues. ASSESSMENT: The patient is still considered to be gravely disabled. TREATMENT PLAN: Continue to monitor her behavior and her condition closely. Also, continue working on discharge plans and placement issue. JOB# [id number]
--- NOTE | 2019-11-08 13:14 | Internal Medicine Prog Note ---
Internal Medicine Subjective - Subjective Patient seen and examined:: with staff, chart reviewed Patient is:: awake, verbal, interactive, ambulating, confused Per staff patient has:: no adverse event, no episodes of fall, eating well, tolerating meds Internal Medicine Objective - Results Recent Labs: Laboratory Last Values POC Glucose 112 MG/DL (70 - 105) H 08/11/19 21:00 Triglycerides 162 mg/dL (<150) H 12/31/18 08:04 Cholesterol 234 mg/dL (<200) H 12/31/18 08:04 LDL Cholesterol Direct 155 mg/dL (75-193) 12/31/18 08:04 HDL Cholesterol 62 mg/dL (23-92) 12/31/18 08:04 - Physical Exam Vitals and I&O: Vital Signs Temp 97.8 F 11/08/19 05:57 Pulse 52 11/08/19 05:57 Resp 19 11/08/19 08:00 BP 109/67 11/08/19 05:57 Pulse Ox 98 11/08/19 05:57 Intake & Output 11/07/19 11/08/19 11/08/19 18:59 06:59 18:59 Intake Total 240 Balance 240 Intake: Oral 240 Other: # Voids 2 2 # Bowel Movements 1 0 Active Medications: Current Medications Acetaminophen (Tylenol) 650 mg PO Q4H PRN PRN Reason: Mild Pain (1-3) Stop: 12/06/19 19:14 Acetaminophen (Tylenol) 650 mg PO Q4H PRN PRN Reason: TEMP ABOVE 101 Stop: 12/09/19 16:12 Alendronate Sodium (Fosamax) 70 mg PO QTHUR@0630 [facility] Stop: 11/12/19 06:29 Last Admin: 11/08/19 06:18 Dose: 70 mg Donepezil HCl (Aricept) 10 mg PO [facility] Last Admin: 11/07/19 20:55 Dose: 10 mg General: demented, thin HEENT: NC/AT, PERRLA, EOMI Neck: Supple, No JVD, No thyromegaly Lungs: CTAB Cardiovascular: RRR, Normal S1, Normal S2, with murmur Abdomen: soft, thin, non-distended, positive bowel sound Extremities: excoriation Neurological: no change Internal Medicine Assmt/Plan - Assessment Assessment: alzheimers dementia elevated chol djd osteoporosis ho old left hip fx - Plan Plan: medically stable fall precaution nutritional support cont on calcium supplemetn - resume fosamax will cont to follow tom rn Nutritional Asmnt/Malnutr-PDOC - Dietary Evaluation Malnutrition Findings (Please click <Entered> for more info): Nutritional Asmnt/Malnutrition Start: 01/04/19 09: 50 Text: Status: Complete Freq: Protocol: Document 01/04/19 14:59 [email or web address] (Rec: 01/04/19 15:06 LCHENG [id number]) Nutritional Asmnt/Malnutrition Patient General Information Nutritional Screening Moderate Risk Diagnosis psychosis Pertinent Medical Hx/Surgical Hx dementia, DJD, osteoporosis Subjective Information pt seen lying in bed, awake and alert, stated food has beed great. Pt is not a big eater. Encourage to eat balanced meals and pt agreed with it. Per EMR, PO intake 75 -100% Current Diet Order/ Nutrition Support regular Pertinent Medications reviewed Pertinent Labs 12/31 reviewed Nutritional Hx/Data Height 1.65 m Height (Calculated Centimeters) 165.1 Current Weight (lbs) 74.843 kg Weight (Calculated Kilograms) 74.8 Weight (Calculated Grams) 52381.7 [place] Body Weight 125 Body Mass Index (BMI) 27.4 Weight Status Overweight GI Symptoms GI Symptoms None Last BM 01/04 x 2 Difficult in: None Skin Integrity/Comment: intact Current %PO Good (75-100%) Estimated Nutritional Goals BEE in Kcals: Using Current wt Calories/Kcals/Kg 23-27 Kcals Calculated 5460-3707 Protein: Using Current wt Protein g/k.8 Protein Calculated 60 Fluid: ml 1725-1998ml (1ml/kcal) Nutritional Problem No current Nutrition Prob Problem N/A Malnutrition Alert Is there a minimum of two criteria No selected? Query Text:Check all the applicable criteria. A minimum of two criteria are recommended for diagnosis of either severe or non-severe malnutrition. Malnutrition Related to Morbid Obesity Malnutrition related to morbid obesity No Intervention/Recommendation Comments 1. Continue with regular diet as ordered. 2. Monitor PO intake, wt, labs and skin integrity 3. F/U as low risk in 7 days Expected Outcomes/Goals Expected Outcomes/Goals 1. PO intake to meet at least 75% of nutritional needs. 2. Wt stability, skin to remain intact, labs to approach WNL.
--- NOTE | 2019-11-09 03:36 | Progress Notes ---
DATE: 10/18/2019 Case was discussed with staff of the patient, reviewed records. The patient continues to do more or less the same. She has been here for a long period of time, awaiting placement. She is sleeping well, eating well. No suicidal ideation, no homicidal ideation, no paranoia, no side effects. We will continue outpatient group therapy, milieu therapy, and adjust medications as needed. [facility]# [id number]
[2019-11-09] MEDS: Multivitamin w/ Minerals Tab PO SCH (08:02)
--- NOTE | 2019-11-09 12:07 | Progress Notes ---
DATE: 11/09/2019 SUBJECTIVE: Chart was reviewed and the patient interviewed. Also discussed the patient's condition with the staff and reviewed records and labs. The patient is still anxious about her discharge date and she is still restless. The patient also is interacting minimally with others. The patient also still needs redirections. Otherwise, no behavioral problems and she continued to comply with taking her medications with no side effects of medications. The patient's gait is steady with a walker and vital signs are stable and no new labs available for review. ASSESSMENT: The patient is still considered to be gravely disabled and still needs close monitoring. TREATMENT PLAN: Continue to monitor behavior and condition closely. Also, we will continue to work on her discharge plans and placement issue. JOB# [id number]
--- NOTE | 2019-11-09 15:34 | Internal Medicine Prog Note ---
Internal Medicine Subjective - Subjective Patient seen and examined:: with staff, chart reviewed Patient is:: awake, verbal, interactive, ambulating, confused Per staff patient has:: no adverse event, no episodes of fall, eating well, tolerating meds Internal Medicine Objective - Results Recent Labs: Laboratory Last Values POC Glucose 112 MG/DL (70 - 105) H 08/11/19 21:00 Triglycerides 162 mg/dL (<150) H 12/31/18 08:04 Cholesterol 234 mg/dL (<200) H 12/31/18 08:04 LDL Cholesterol Direct 155 mg/dL (75-193) 12/31/18 08:04 HDL Cholesterol 62 mg/dL (23-92) 12/31/18 08:04 - Physical Exam Vitals and I&O: Vital Signs Temp 7.4 F 11/09/19 14:00 Pulse 64 11/09/19 14:00 Resp 18 11/09/19 14:00 BP 91/51 11/09/19 14:00 Pulse Ox 97 11/09/19 14:00 Intake & Output 11/08/19 11/09/19 11/09/19 18:59 06:59 18:59 Intake Total 240 Balance 240 Intake: Oral 240 Other: # Voids 2 2 # Bowel Movements 0 0 Active Medications: Current Medications Acetaminophen (Tylenol) 650 mg PO Q4H PRN PRN Reason: Mild Pain (1-3) Stop: 12/06/19 19:14 Acetaminophen (Tylenol) 650 mg PO Q4H PRN PRN Reason: TEMP ABOVE 101 Stop: 12/09/19 16:12 Alendronate Sodium (Fosamax) 70 mg PO QTHUR@0630 [facility] Stop: 11/12/19 06:29 Last Admin: 11/08/19 06:18 Dose: 70 mg Donepezil HCl (Aricept) 10 mg PO [facility] Last Admin: 11/08/19 20:14 Dose: 10 mg General: demented, thin HEENT: NC/AT, PERRLA, EOMI Neck: Supple, No JVD, No thyromegaly Lungs: CTAB Cardiovascular: RRR, Normal S1, Normal S2, with murmur Abdomen: soft, thin, non-distended, positive bowel sound Extremities: excoriation Neurological: no change Internal Medicine Assmt/Plan - Assessment Assessment: alzheimers dementia elevated chol djd osteoporosis ho old left hip fx - Plan Plan: medically stable fall precaution nutritional support cont on calcium supplemetn - resume fosamax will cont to follow tom rn Nutritional Asmnt/Malnutr-PDOC - Dietary Evaluation Malnutrition Findings (Please click <Entered> for more info): Nutritional Asmnt/Malnutrition Start: 01/04/19 09: 50 Text: Status: Complete Freq: Protocol: Document 01/04/19 14:59 LCJOSEG (Rec: 01/04/19 15:06 LCHENG [id number]) Nutritional Asmnt/Malnutrition Patient General Information Nutritional Screening Moderate Risk Diagnosis psychosis Pertinent Medical Hx/Surgical Hx dementia, DJD, osteoporosis Subjective Information pt seen lying in bed, awake and alert, stated food has beed great. Pt is not a big eater. Encourage to eat balanced meals and pt agreed with it. Per EMR, PO intake 75 -100% Current Diet Order/ Nutrition Support regular Pertinent Medications reviewed Pertinent Labs 12/31 reviewed Nutritional Hx/Data Height 1.65 m Height (Calculated Centimeters) 165.1 Current Weight (lbs) 74.843 kg Weight (Calculated Kilograms) 74.8 Weight (Calculated Grams) 99290.7 [place] Body Weight 125 Body Mass Index (BMI) 27.4 Weight Status Overweight GI Symptoms GI Symptoms None Last BM 01/04 x 2 Difficult in: None Skin Integrity/Comment: intact Current %PO Good (75-100%) Estimated Nutritional Goals BEE in Kcals: Using Current wt Calories/Kcals/Kg 23-27 Kcals Calculated 9839-4520 Protein: Using Current wt Protein g/k.8 Protein Calculated 60 Fluid: ml 1725-1998ml (1ml/kcal) Nutritional Problem No current Nutrition Prob Problem N/A Malnutrition Alert Is there a minimum of two criteria No selected? Query Text:Check all the applicable criteria. A minimum of two criteria are recommended for diagnosis of either severe or non-severe malnutrition. Malnutrition Related to Morbid Obesity Malnutrition related to morbid obesity No Intervention/Recommendation Comments 1. Continue with regular diet as ordered. 2. Monitor PO intake, wt, labs and skin integrity 3. F/U as low risk in 7 days Expected Outcomes/Goals Expected Outcomes/Goals 1. PO intake to meet at least 75% of nutritional needs. 2. Wt stability, skin to remain intact, labs to approach WNL.
--- NOTE | 2019-11-10 07:13 | Progress Notes ---
DATE: 11/10/2019 SUBJECTIVE: The patient in the hospital, remains confused, disoriented, pending a safe discharge plan, anxious, restless, minimally interactive, mostly keeps to self, gravely disabled, otherwise, calm. No behavioral disturbances. No overt agitation. Medications were noted. Vitals were reviewed. JOB# [id number]
[2019-11-10] MEDS: Multivitamin w/ Minerals Tab PO SCH (09:47)
--- NOTE | 2019-11-10 23:30 | Internal Medicine Prog Note ---
Internal Medicine Subjective - Subjective Patient seen and examined:: with staff, chart reviewed Patient is:: awake, verbal, interactive, ambulating, confused Per staff patient has:: no adverse event, no episodes of fall, eating well, tolerating meds Internal Medicine Objective - Results Recent Labs: Laboratory Last Values POC Glucose 112 MG/DL (70 - 105) H 08/11/19 21:00 Triglycerides 162 mg/dL (<150) H 12/31/18 08:04 Cholesterol 234 mg/dL (<200) H 12/31/18 08:04 LDL Cholesterol Direct 155 mg/dL (75-193) 12/31/18 08:04 HDL Cholesterol 62 mg/dL (23-92) 12/31/18 08:04 - Physical Exam Vitals and I&O: Vital Signs Temp 97.8 F 11/10/19 20:05 Pulse 66 11/10/19 20:05 Resp 20 11/10/19 20:05 BP 102/63 11/10/19 20:05 Pulse Ox 97 11/10/19 20:05 Intake & Output 11/10/19 11/10/19 11/11/19 06:59 18:59 06:59 Intake Total 300 1200 120 Balance 300 1200 120 Intake: Oral 300 1200 120 Other: # Voids 1 2 # Bowel Movements 0 1 0 Active Medications: Current Medications Acetaminophen (Tylenol) 650 mg PO Q4H PRN PRN Reason: Mild Pain (1-3) Stop: 12/06/19 19:14 Alendronate Sodium (Fosamax) 70 mg PO QTHUR@0630 [facility] Stop: 11/12/19 06:29 Last Admin: 11/08/19 06:18 Dose: 70 mg Donepezil HCl (Aricept) 10 mg PO [facility] Last Admin: 11/10/19 21:02 Dose: 10 mg General: demented, thin HEENT: NC/AT, PERRLA, EOMI Neck: Supple, No JVD, No thyromegaly Lungs: CTAB Cardiovascular: RRR, Normal S1, Normal S2, with murmur Abdomen: soft, thin, non-distended, positive bowel sound Extremities: excoriation Neurological: no change Internal Medicine Assmt/Plan - Assessment Assessment: alzheimers dementia elevated chol djd osteoporosis ho old left hip fx - Plan Plan: medically stable fall precaution nutritional support cont on calcium supplemetn - resume fosamax will cont to follow tom rn Nutritional Asmnt/Malnutr-PDOC - Dietary Evaluation Malnutrition Findings (Please click <Entered> for more info): Nutritional Asmnt/Malnutrition Start: 01/04/19 09: 50 Text: Status: Complete Freq: Protocol: Document 01/04/19 14:59 LCHENG (Rec: 01/04/19 15:06 [email or web address] [id number]) Nutritional Asmnt/Malnutrition Patient General Information Nutritional Screening Moderate Risk Diagnosis psychosis Pertinent Medical Hx/Surgical Hx dementia, DJD, osteoporosis Subjective Information pt seen lying in bed, awake and alert, stated food has beed great. Pt is not a big eater. Encourage to eat balanced meals and pt agreed with it. Per EMR, PO intake 75 -100% Current Diet Order/ Nutrition Support regular Pertinent Medications reviewed Pertinent Labs 12/31 reviewed Nutritional Hx/Data Height 1.65 m Height (Calculated Centimeters) 165.1 Current Weight (lbs) 74.843 kg Weight (Calculated Kilograms) 74.8 Weight (Calculated Grams) 47062.7 [place] Body Weight 125 Body Mass Index (BMI) 27.4 Weight Status Overweight GI Symptoms GI Symptoms None Last BM 01/04 x 2 Difficult in: None Skin Integrity/Comment: intact Current %PO Good (75-100%) Estimated Nutritional Goals BEE in Kcals: Using Current wt Calories/Kcals/Kg 23-27 Kcals Calculated 5966-0214 Protein: Using Current wt Protein g/k.8 Protein Calculated 60 Fluid: ml 1725-1998ml (1ml/kcal) Nutritional Problem No current Nutrition Prob Problem N/A Malnutrition Alert Is there a minimum of two criteria No selected? Query Text:Check all the applicable criteria. A minimum of two criteria are recommended for diagnosis of either severe or non-severe malnutrition. Malnutrition Related to Morbid Obesity Malnutrition related to morbid obesity No Intervention/Recommendation Comments 1. Continue with regular diet as ordered. 2. Monitor PO intake, wt, labs and skin integrity 3. F/U as low risk in 7 days Expected Outcomes/Goals Expected Outcomes/Goals 1. PO intake to meet at least 75% of nutritional needs. 2. Wt stability, skin to remain intact, labs to approach WNL.
[2019-11-11] MEDS: Multivitamin w/ Minerals Tab PO SCH (08:17)
--- NOTE | 2019-11-11 12:54 | Internal Medicine Prog Note ---
Internal Medicine Subjective - Subjective Patient seen and examined:: with staff, chart reviewed Patient is:: awake, verbal, interactive, ambulating, confused Per staff patient has:: no adverse event, no episodes of fall, eating well, tolerating meds Internal Medicine Objective - Results Recent Labs: Laboratory Last Values POC Glucose 112 MG/DL (70 - 105) H 08/11/19 21:00 Triglycerides 162 mg/dL (<150) H 12/31/18 08:04 Cholesterol 234 mg/dL (<200) H 12/31/18 08:04 LDL Cholesterol Direct 155 mg/dL (75-193) 12/31/18 08:04 HDL Cholesterol 62 mg/dL (23-92) 12/31/18 08:04 - Physical Exam Vitals and I&O: Vital Signs Temp 98.7 F 11/11/19 06:12 Pulse 69 11/11/19 06:12 Resp 18 11/11/19 06:12 BP 113/66 11/11/19 06:12 Pulse Ox 98 11/11/19 06:12 Intake & Output 11/10/19 11/11/19 11/11/19 18:59 06:59 18:59 Intake Total 1200 180 Balance 1200 180 Intake: Oral 1200 180 Other: # Voids 1 # Bowel Movements 1 0 Stool Characteristics Formed Brown Active Medications: Current Medications Acetaminophen (Tylenol) 650 mg PO Q4H PRN PRN Reason: Mild Pain (1-3) Stop: 12/06/19 19:14 Alendronate Sodium (Fosamax) 70 mg PO QTHUR@0630 [facility] Stop: 11/12/19 06:29 Last Admin: 11/08/19 06:18 Dose: 70 mg Donepezil HCl (Aricept) 10 mg PO [facility] Last Admin: 11/10/19 21:02 Dose: 10 mg General: demented, thin HEENT: NC/AT, PERRLA, EOMI Neck: Supple, No JVD, No thyromegaly Lungs: CTAB Cardiovascular: RRR, Normal S1, Normal S2, with murmur Abdomen: soft, thin, non-distended, positive bowel sound Extremities: excoriation Neurological: no change Internal Medicine Assmt/Plan - Assessment Assessment: alzheimers dementia elevated chol djd osteoporosis ho old left hip fx - Plan Plan: medically stable fall precaution nutritional support cont on calcium supplemetn - resume fosamax will cont to follow dw rn Nutritional Asmnt/Malnutr-PDOC - Dietary Evaluation Malnutrition Findings (Please click <Entered> for more info): Nutritional Asmnt/Malnutrition Start: 01/04/19 09: 50 Text: Status: Complete Freq: Protocol: Document 01/04/19 14:59 LCJOSEG (Rec: 01/04/19 15:06 LCJOSEG [id number]) Nutritional Asmnt/Malnutrition Patient General Information Nutritional Screening Moderate Risk Diagnosis psychosis Pertinent Medical Hx/Surgical Hx dementia, DJD, osteoporosis Subjective Information pt seen lying in bed, awake and alert, stated food has beed great. Pt is not a big eater. Encourage to eat balanced meals and pt agreed with it. Per EMR, PO intake 75 -100% Current Diet Order/ Nutrition Support regular Pertinent Medications reviewed Pertinent Labs 12/31 reviewed Nutritional Hx/Data Height 1.65 m Height (Calculated Centimeters) 165.1 Current Weight (lbs) 74.843 kg Weight (Calculated Kilograms) 74.8 Weight (Calculated Grams) 49870.7 [place] Body Weight 125 Body Mass Index (BMI) 27.4 Weight Status Overweight GI Symptoms GI Symptoms None Last BM 01/04 x 2 Difficult in: None Skin Integrity/Comment: intact Current %PO Good (75-100%) Estimated Nutritional Goals BEE in Kcals: Using Current wt Calories/Kcals/Kg 23-27 Kcals Calculated 8073-3282 Protein: Using Current wt Protein g/k.8 Protein Calculated 60 Fluid: ml 1725-1998ml (1ml/kcal) Nutritional Problem No current Nutrition Prob Problem N/A Malnutrition Alert Is there a minimum of two criteria No selected? Query Text:Check all the applicable criteria. A minimum of two criteria are recommended for diagnosis of either severe or non-severe malnutrition. Malnutrition Related to Morbid Obesity Malnutrition related to morbid obesity No Intervention/Recommendation Comments 1. Continue with regular diet as ordered. 2. Monitor PO intake, wt, labs and skin integrity 3. F/U as low risk in 7 days Expected Outcomes/Goals Expected Outcomes/Goals 1. PO intake to meet at least 75% of nutritional needs. 2. Wt stability, skin to remain intact, labs to approach WNL.
--- NOTE | 2019-11-11 23:08 | Progress Notes ---
DATE: 11/11/2019 PHYSICIAN: Isabel Griffiths DO COVERYING FOR: Dr. Isaura Mason SUBJECTIVE: The patient was interviewed. Case was discussed with staff. Chart and records were reviewed. Per the staff, the patient has been calm on the unit and needs redirection at times, but becoming more independent with her ADLs. The patient was interviewed in the interview room. She reports no complaints at this time. No side effects to medication. No behavioral outbursts noted. The patient otherwise is minimally cooperative with the interview. MENTAL STATUS EXAMINATION: The patient is sitting calmly in the chair in the dayroom. Her speech is soft. Mood and affect appear to be stable. Thought process is concrete. Denies any suicidal or homicidal thoughts. She denies any hallucinations or paranoia at this time. Alert and oriented to person. Insight, judgment and impulse control appear to be limited. ASSESSMENT AND PLAN: The patient is stable at this time. We will continue medications as prescribed. Pending placement options and we will encourage the patient to participate in group and milieu therapy. JOB# [id number]
--- NOTE | 2019-11-12 08:25 | Progress Notes ---
DATE: 11/12/2019 SUBJECTIVE: Chart reviewed and the patient interviewed. Also discussed the patient's condition with the staff and reviewed records and labs. The patient is still anxious about her hospital stay and still looking forward for her discharge. She also is still pacing up and down the unit in a confused state, but no behavioral problems or behavioral issues. She also is cooperative and compliant with taking her medications. ASSESSMENT: The patient is still considered to be gravely disabled and waiting for placement. TREATMENT PLAN: Continue to monitor behavior and condition closely. Also, continue working on her discharge plans and also on her placement issue. JOB# [id number]
[2019-11-12] MEDS: Multivitamin w/ Minerals Tab PO SCH (08:36)
--- NOTE | 2019-11-12 13:35 | Internal Medicine Prog Note ---
Internal Medicine Subjective - Subjective Patient seen and examined:: with staff, chart reviewed Patient is:: awake, verbal, interactive, ambulating, confused Per staff patient has:: no adverse event, no episodes of fall, eating well, tolerating meds Internal Medicine Objective - Results Recent Labs: Laboratory Last Values POC Glucose 112 MG/DL (70 - 105) H 08/11/19 21:00 Triglycerides 162 mg/dL (<150) H 12/31/18 08:04 Cholesterol 234 mg/dL (<200) H 12/31/18 08:04 LDL Cholesterol Direct 155 mg/dL (75-193) 12/31/18 08:04 HDL Cholesterol 62 mg/dL (23-92) 12/31/18 08:04 - Physical Exam Vitals and I&O: Vital Signs Temp 98 F 11/12/19 06:25 Pulse 66 11/12/19 06:25 Resp 20 11/12/19 06:25 BP 110/68 11/12/19 06:25 Pulse Ox 98 11/12/19 06:25 Intake & Output 11/11/19 11/12/19 11/12/19 18:59 06:59 18:59 Intake Total 550 360 Balance 550 360 Intake: Oral 550 360 Other: # Voids 1 # Bowel Movements 1 0 Stool Characteristics Formed Brown Active Medications: Current Medications Acetaminophen (Tylenol) 650 mg PO Q4H PRN PRN Reason: Mild Pain (1-3) Stop: 12/06/19 19:14 Donepezil HCl (Aricept) 10 mg PO [facility] Last Admin: 11/11/19 20:56 Dose: 10 mg General: demented, thin HEENT: NC/AT, PERRLA, EOMI Neck: Supple, No JVD, No thyromegaly Lungs: CTAB Cardiovascular: RRR, Normal S1, Normal S2, with murmur Abdomen: soft, thin, non-distended, positive bowel sound Extremities: excoriation Neurological: no change Internal Medicine Assmt/Plan - Assessment Assessment: alzheimers dementia elevated chol djd osteoporosis ho old left hip fx - Plan Plan: medically stable fall precaution nutritional support cont on calcium supplemetn - resume fosamax will cont to follow tom rn Nutritional Asmnt/Malnutr-PDOC - Dietary Evaluation Malnutrition Findings (Please click <Entered> for more info): Nutritional Asmnt/Malnutrition Start: 01/04/19 09: 50 Text: Status: Complete Freq: Protocol: Document 01/04/19 14:59 LCJOSEG (Rec: 01/04/19 15:06 LCCOREY [id number]) Nutritional Asmnt/Malnutrition Patient General Information Nutritional Screening Moderate Risk Diagnosis psychosis Pertinent Medical Hx/Surgical Hx dementia, DJD, osteoporosis Subjective Information pt seen lying in bed, awake and alert, stated food has beed great. Pt is not a big eater. Encourage to eat balanced meals and pt agreed with it. Per EMR, PO intake 75 -100% Current Diet Order/ Nutrition Support regular Pertinent Medications reviewed Pertinent Labs 12/31 reviewed Nutritional Hx/Data Height 1.65 m Height (Calculated Centimeters) 165.1 Current Weight (lbs) 74.843 kg Weight (Calculated Kilograms) 74.8 Weight (Calculated Grams) 14740.7 [place] Body Weight 125 Body Mass Index (BMI) 27.4 Weight Status Overweight GI Symptoms GI Symptoms None Last BM 01/04 x 2 Difficult in: None Skin Integrity/Comment: intact Current %PO Good (75-100%) Estimated Nutritional Goals BEE in Kcals: Using Current wt Calories/Kcals/Kg 23-27 Kcals Calculated 8695-4392 Protein: Using Current wt Protein g/k.8 Protein Calculated 60 Fluid: ml 1725-1998ml (1ml/kcal) Nutritional Problem No current Nutrition Prob Problem N/A Malnutrition Alert Is there a minimum of two criteria No selected? Query Text:Check all the applicable criteria. A minimum of two criteria are recommended for diagnosis of either severe or non-severe malnutrition. Malnutrition Related to Morbid Obesity Malnutrition related to morbid obesity No Intervention/Recommendation Comments 1. Continue with regular diet as ordered. 2. Monitor PO intake, wt, labs and skin integrity 3. F/U as low risk in 7 days Expected Outcomes/Goals Expected Outcomes/Goals 1. PO intake to meet at least 75% of nutritional needs. 2. Wt stability, skin to remain intact, labs to approach WNL.
[2019-11-13] MEDS: Multivitamin w/ Minerals Tab PO SCH (09:09)
--- NOTE | 2019-11-13 12:38 | Internal Medicine Prog Note ---
Internal Medicine Subjective - Subjective Patient seen and examined:: with staff, chart reviewed Patient is:: awake, verbal, interactive, ambulating, confused Per staff patient has:: no adverse event, no episodes of fall, eating well, tolerating meds Internal Medicine Objective - Results Recent Labs: Laboratory Last Values POC Glucose 112 MG/DL (70 - 105) H 08/11/19 21:00 Triglycerides 162 mg/dL (<150) H 12/31/18 08:04 Cholesterol 234 mg/dL (<200) H 12/31/18 08:04 LDL Cholesterol Direct 155 mg/dL (75-193) 12/31/18 08:04 HDL Cholesterol 62 mg/dL (23-92) 12/31/18 08:04 - Physical Exam Vitals and I&O: Vital Signs Temp 97 F 11/13/19 06:18 Pulse 57 11/13/19 06:18 Resp 20 11/13/19 06:18 BP 97/64 11/13/19 06:18 Pulse Ox 98 11/13/19 06:18 Intake & Output 11/12/19 11/13/19 11/13/19 18:59 06:59 18:59 Intake Total 1000 120 Balance 1000 120 Intake: Oral 1000 120 Other: # Voids 3 3 # Bowel Movements 1 0 Active Medications: Current Medications Acetaminophen (Tylenol) 650 mg PO Q4H PRN PRN Reason: Mild Pain (1-3) Stop: 12/06/19 19:14 Donepezil HCl (Aricept) 10 mg PO HS [facility] Last Admin: 11/12/19 20:39 Dose: 10 mg General: demented, thin HEENT: NC/AT, PERRLA, EOMI Neck: Supple, No JVD, No thyromegaly Lungs: CTAB Cardiovascular: RRR, Normal S1, Normal S2, with murmur Abdomen: soft, thin, non-distended, positive bowel sound Extremities: excoriation Neurological: no change Internal Medicine Assmt/Plan - Assessment Assessment: alzheimers dementia elevated chol djd osteoporosis ho old left hip fx - Plan Plan: medically stable fall precaution nutritional support cont on calcium supplemetn - resume fosamax will cont to follow tom rn Nutritional Asmnt/Malnutr-PDOC - Dietary Evaluation Malnutrition Findings (Please click <Entered> for more info): Nutritional Asmnt/Malnutrition Start: 01/04/19 09: 50 Text: Status: Complete Freq: Protocol: Document 01/04/19 14:59 LCJOSEG (Rec: 01/04/19 15:06 TARIK [id number]) Nutritional Asmnt/Malnutrition Patient General Information Nutritional Screening Moderate Risk Diagnosis psychosis Pertinent Medical Hx/Surgical Hx dementia, DJD, osteoporosis Subjective Information pt seen lying in bed, awake and alert, stated food has beed great. Pt is not a big eater. Encourage to eat balanced meals and pt agreed with it. Per EMR, PO intake 75 -100% Current Diet Order/ Nutrition Support regular Pertinent Medications reviewed Pertinent Labs 12/31 reviewed Nutritional Hx/Data Height 1.65 m Height (Calculated Centimeters) 165.1 Current Weight (lbs) 74.843 kg Weight (Calculated Kilograms) 74.8 Weight (Calculated Grams) 93922.7 [place] Body Weight 125 Body Mass Index (BMI) 27.4 Weight Status Overweight GI Symptoms GI Symptoms None Last BM 01/04 x 2 Difficult in: None Skin Integrity/Comment: intact Current %PO Good (75-100%) Estimated Nutritional Goals BEE in Kcals: Using Current wt Calories/Kcals/Kg 23-27 Kcals Calculated 2640-3062 Protein: Using Current wt Protein g/k.8 Protein Calculated 60 Fluid: ml 1725-1998ml (1ml/kcal) Nutritional Problem No current Nutrition Prob Problem N/A Malnutrition Alert Is there a minimum of two criteria No selected? Query Text:Check all the applicable criteria. A minimum of two criteria are recommended for diagnosis of either severe or non-severe malnutrition. Malnutrition Related to Morbid Obesity Malnutrition related to morbid obesity No Intervention/Recommendation Comments 1. Continue with regular diet as ordered. 2. Monitor PO intake, wt, labs and skin integrity 3. F/U as low risk in 7 days Expected Outcomes/Goals Expected Outcomes/Goals 1. PO intake to meet at least 75% of nutritional needs. 2. Wt stability, skin to remain intact, labs to approach WNL.
--- NOTE | 2019-11-13 18:47 | Progress Notes ---
DATE: SUBJECTIVE: Chart was reviewed and the patient interviewed. Also discussed the patient's condition with the staff and reviewed records and labs. The patient seems to be in good mood today and she was laughing appropriately during my interview. The patient also is still pleasantly confused, but at the same time no behavioral issues. She still needs redirections and considered to be gravely disabled. The patient during interview also is having fair hygiene. Otherwise, the patient denies any side effects of Aricept and compliant with taking it. ASSESSMENT: The patient is still considered to be gravely disabled. TREATMENT PLAN: Continue to monitor behavior and condition closely and continue working on her discharge plans and placement issue. JOB# [id number]
[2019-11-14] MEDS: Multivitamin w/ Minerals Tab PO SCH (08:07)
--- NOTE | 2019-11-14 10:00 | Progress Notes ---
DATE: 11/14/2019 SUBJECTIVE: Chart reviewed and the patient interviewed. Also discussed the patient's condition with the staff and reviewed records and labs. The patient is calm and cooperative. She also interacting more with peers and with others. The patient denies any intention to harm herself or others. She is still pleasantly confused. Personal hygiene is fair. ASSESSMENT: The patient is still considered to be gravely disabled, but calm and cooperative. TREATMENT PLAN: Continue current treatment and medications and also working on her discharge plans and placement issue. JOB# [id number]
--- NOTE | 2019-11-14 13:21 | Internal Medicine Prog Note ---
Internal Medicine Subjective - Subjective Patient seen and examined:: with staff, chart reviewed Patient is:: awake, verbal, interactive, ambulating, confused Per staff patient has:: no adverse event, no episodes of fall, eating well, tolerating meds Internal Medicine Objective - Results Recent Labs: Laboratory Last Values POC Glucose 112 MG/DL (70 - 105) H 08/11/19 21:00 Triglycerides 162 mg/dL (<150) H 12/31/18 08:04 Cholesterol 234 mg/dL (<200) H 12/31/18 08:04 LDL Cholesterol Direct 155 mg/dL (75-193) 12/31/18 08:04 HDL Cholesterol 62 mg/dL (23-92) 12/31/18 08:04 - Physical Exam Vitals and I&O: Vital Signs Temp 97.7 F 11/14/19 05:46 Pulse 67 11/14/19 05:46 Resp 17 11/14/19 08:00 BP 118/84 11/14/19 05:46 Pulse Ox 96 11/14/19 05:46 Intake & Output 11/13/19 11/14/19 11/14/19 18:59 06:59 18:59 Intake Total 800 Balance 800 Intake: Oral 800 Other: # Voids 3 # Bowel Movements 1 0 Active Medications: Current Medications Acetaminophen (Tylenol) 650 mg PO Q4H PRN PRN Reason: Mild Pain (1-3) Stop: 12/06/19 19:14 Alendronate Sodium (Fosamax) 70 mg PO We@0630 [facility] Stop: 01/13/20 06:29 Last Admin: 11/14/19 06:55 Dose: 70 mg Donepezil HCl (Aricept) 10 mg PO [facility] Last Admin: 11/13/19 20:07 Dose: 10 mg General: demented, thin HEENT: NC/AT, PERRLA, EOMI Neck: Supple, No JVD, No thyromegaly Lungs: CTAB Cardiovascular: RRR, Normal S1, Normal S2, with murmur Abdomen: soft, thin, non-distended, positive bowel sound Extremities: excoriation Neurological: no change Internal Medicine Assmt/Plan - Assessment Assessment: alzheimers dementia elevated chol djd osteoporosis ho old left hip fx - Plan Plan: medically stable fall precaution nutritional support cont on calcium supplemetn - resume fosamax will cont to follow dw rn Nutritional Asmnt/Malnutr-PDOC - Dietary Evaluation Malnutrition Findings (Please click <Entered> for more info): Nutritional Asmnt/Malnutrition Start: 01/04/19 09: 50 Text: Status: Complete Freq: Protocol: Document 01/04/19 14:59 LCHENG (Rec: 01/04/19 15:06 LCHENG [email or web address]) Nutritional Asmnt/Malnutrition Patient General Information Nutritional Screening Moderate Risk Diagnosis psychosis Pertinent Medical Hx/Surgical Hx dementia, DJD, osteoporosis Subjective Information pt seen lying in bed, awake and alert, stated food has beed great. Pt is not a big eater. Encourage to eat balanced meals and pt agreed with it. Per EMR, PO intake 75 -100% Current Diet Order/ Nutrition Support regular Pertinent Medications reviewed Pertinent Labs 12/31 reviewed Nutritional Hx/Data Height 1.65 m Height (Calculated Centimeters) 165.1 Current Weight (lbs) 74.843 kg Weight (Calculated Kilograms) 74.8 Weight (Calculated Grams) 88566.7 [place] Body Weight 125 Body Mass Index (BMI) 27.4 Weight Status Overweight GI Symptoms GI Symptoms None Last BM 01/04 x 2 Difficult in: None Skin Integrity/Comment: intact Current %PO Good (75-100%) Estimated Nutritional Goals BEE in Kcals: Using Current wt Calories/Kcals/Kg 23-27 Kcals Calculated 5623-8792 Protein: Using Current wt Protein g/k.8 Protein Calculated 60 Fluid: ml 1725-1998ml (1ml/kcal) Nutritional Problem No current Nutrition Prob Problem N/A Malnutrition Alert Is there a minimum of two criteria No selected? Query Text:Check all the applicable criteria. A minimum of two criteria are recommended for diagnosis of either severe or non-severe malnutrition. Malnutrition Related to Morbid Obesity Malnutrition related to morbid obesity No Intervention/Recommendation Comments 1. Continue with regular diet as ordered. 2. Monitor PO intake, wt, labs and skin integrity 3. F/U as low risk in 7 days Expected Outcomes/Goals Expected Outcomes/Goals 1. PO intake to meet at least 75% of nutritional needs. 2. Wt stability, skin to remain intact, labs to approach WNL.
[2019-11-15] MEDS: Multivitamin w/ Minerals Tab PO SCH (08:27)
--- NOTE | 2019-11-15 12:57 | Internal Medicine Prog Note ---
Internal Medicine Subjective - Subjective Patient seen and examined:: with staff, chart reviewed Patient is:: awake, verbal, interactive, ambulating, confused Per staff patient has:: no adverse event, no episodes of fall, eating well, tolerating meds Internal Medicine Objective - Results Recent Labs: Laboratory Last Values POC Glucose 112 MG/DL (70 - 105) H 08/11/19 21:00 Triglycerides 162 mg/dL (<150) H 12/31/18 08:04 Cholesterol 234 mg/dL (<200) H 12/31/18 08:04 LDL Cholesterol Direct 155 mg/dL (75-193) 12/31/18 08:04 HDL Cholesterol 62 mg/dL (23-92) 12/31/18 08:04 - Physical Exam Vitals and I&O: Vital Signs Temp 97.3 F 11/15/19 06:43 Pulse 69 11/15/19 06:43 Resp 18 11/15/19 06:43 BP 123/68 11/15/19 06:43 Pulse Ox 98 11/15/19 06:43 Intake & Output 11/14/19 11/15/19 11/15/19 18:59 06:59 18:59 Intake Total 900 240 Balance 900 240 Intake: Oral 900 240 Other: # Voids 3 2 # Bowel Movements 1 0 Active Medications: Current Medications Acetaminophen (Tylenol) 650 mg PO Q4H PRN PRN Reason: Mild Pain (1-3) Stop: 12/06/19 19:14 Alendronate Sodium (Fosamax) 70 mg PO We@0630 [facility] Stop: 01/13/20 06:29 Last Admin: 11/14/19 06:55 Dose: 70 mg Donepezil HCl (Aricept) 10 mg PO [facility] Last Admin: 11/14/19 20:35 Dose: 10 mg General: demented, thin HEENT: NC/AT, PERRLA, EOMI Neck: Supple, No JVD, No thyromegaly Lungs: CTAB Cardiovascular: RRR, Normal S1, Normal S2, with murmur Abdomen: soft, thin, non-distended, positive bowel sound Extremities: excoriation Neurological: no change Internal Medicine Assmt/Plan - Assessment Assessment: alzheimers dementia elevated chol djd osteoporosis ho old left hip fx - Plan Plan: medically stable fall precaution nutritional support cont on calcium supplemetn - resume fosamax will cont to follow tom rn Nutritional Asmnt/Malnutr-PDOC - Dietary Evaluation Malnutrition Findings (Please click <Entered> for more info): Nutritional Asmnt/Malnutrition Start: 01/04/19 09: 50 Text: Status: Complete Freq: Protocol: Document 01/04/19 14:59 LCHENG (Rec: 01/04/19 15:06 LCJOSEG [email or web address]) Nutritional Asmnt/Malnutrition Patient General Information Nutritional Screening Moderate Risk Diagnosis psychosis Pertinent Medical Hx/Surgical Hx dementia, DJD, osteoporosis Subjective Information pt seen lying in bed, awake and alert, stated food has beed great. Pt is not a big eater. Encourage to eat balanced meals and pt agreed with it. Per EMR, PO intake 75 -100% Current Diet Order/ Nutrition Support regular Pertinent Medications reviewed Pertinent Labs 12/31 reviewed Nutritional Hx/Data Height 1.65 m Height (Calculated Centimeters) 165.1 Current Weight (lbs) 74.843 kg Weight (Calculated Kilograms) 74.8 Weight (Calculated Grams) 39910.7 [place] Body Weight 125 Body Mass Index (BMI) 27.4 Weight Status Overweight GI Symptoms GI Symptoms None Last BM 01/04 x 2 Difficult in: None Skin Integrity/Comment: intact Current %PO Good (75-100%) Estimated Nutritional Goals BEE in Kcals: Using Current wt Calories/Kcals/Kg 23-27 Kcals Calculated 6389-7330 Protein: Using Current wt Protein g/k.8 Protein Calculated 60 Fluid: ml 1725-1998ml (1ml/kcal) Nutritional Problem No current Nutrition Prob Problem N/A Malnutrition Alert Is there a minimum of two criteria No selected? Query Text:Check all the applicable criteria. A minimum of two criteria are recommended for diagnosis of either severe or non-severe malnutrition. Malnutrition Related to Morbid Obesity Malnutrition related to morbid obesity No Intervention/Recommendation Comments 1. Continue with regular diet as ordered. 2. Monitor PO intake, wt, labs and skin integrity 3. F/U as low risk in 7 days Expected Outcomes/Goals Expected Outcomes/Goals 1. PO intake to meet at least 75% of nutritional needs. 2. Wt stability, skin to remain intact, labs to approach WNL.
--- NOTE | 2019-11-15 20:39 | Progress Notes ---
DATE: 11/15/2019 SUBJECTIVE: Chart was reviewed and the patient interviewed. Also discussed the patient's condition with the staff and reviewed records and labs. The patient is still anxious and frustrated "since here." The patient also is still asking about when she is going to be discharged and "I want to go home. You know I have a nice home in [place]." She is still anxious and she is still restless, but no behavioral issues. She also is still cooperative with her treatment and compliant with taking her medications. MENTAL STATUS EXAMINATION: Calm and cooperative. Denies hallucinations or delusions. The patient's gait is steady with a walker and she is walking around with a walker. Vital signs are stable and no new labs available. ASSESSMENT: The patient is still considered to be gravely disabled and waiting for placement. JOB# [id number]
--- NOTE | 2019-11-16 10:39 | Progress Notes ---
DATE: 11/16/2019 SUBJECTIVE: Chart reviewed and the patient interviewed. Also discussed the patient's condition with the staff and reviewed records and labs. The patient is still anxious about her discharge and about her long hospital stay. The patient also still has thoughts of going back to her own place and continued to say that she has "nice house." The patient also is still in a depressed mood. Otherwise, the patient has no major medical issues. No behavioral issues. ASSESSMENT: The patient is still considered to be gravely disabled. TREATMENT PLAN: We will continue to monitor the patient's behavior and condition closely. Also, continue to work on her discharge plans and her placement issue. [facility]# [id number]
--- NOTE | 2019-11-16 12:51 | Internal Medicine Prog Note ---
Internal Medicine Subjective - Subjective Patient seen and examined:: with staff, chart reviewed Patient is:: awake, verbal, interactive, ambulating, confused Per staff patient has:: no adverse event, no episodes of fall, eating well, tolerating meds Internal Medicine Objective - Results Recent Labs: Laboratory Last Values POC Glucose 112 MG/DL (70 - 105) H 08/11/19 21:00 Triglycerides 162 mg/dL (<150) H 12/31/18 08:04 Cholesterol 234 mg/dL (<200) H 12/31/18 08:04 LDL Cholesterol Direct 155 mg/dL (75-193) 12/31/18 08:04 HDL Cholesterol 62 mg/dL (23-92) 12/31/18 08:04 - Physical Exam Vitals and I&O: Vital Signs Temp 97.4 F 11/16/19 05:28 Pulse 73 11/16/19 05:28 Resp 20 11/16/19 05:28 BP 106/67 11/16/19 05:28 Pulse Ox 96 11/16/19 05:28 Intake & Output 11/15/19 11/16/19 11/16/19 18:59 06:59 18:59 Intake Total 850 360 Balance 850 360 Intake: Oral 850 360 Other: # Voids 1 # Bowel Movements 1 0 Active Medications: Current Medications Acetaminophen (Tylenol) 650 mg PO Q4H PRN PRN Reason: Mild Pain (1-3) Stop: 12/06/19 19:14 Alendronate Sodium (Fosamax) 70 mg PO We@0630 [facility] Stop: 01/13/20 06:29 Last Admin: 11/14/19 06:55 Dose: 70 mg Donepezil HCl (Aricept) [address] [facility] Last Admin: 11/15/19 20:31 Dose: 10 mg General: demented, thin HEENT: NC/AT, PERRLA, EOMI Neck: Supple, No JVD, No thyromegaly Lungs: CTAB Cardiovascular: RRR, Normal S1, Normal S2, with murmur Abdomen: soft, thin, non-distended, positive bowel sound Extremities: excoriation Neurological: no change Internal Medicine Assmt/Plan - Assessment Assessment: alzheimers dementia elevated chol djd osteoporosis ho old left hip fx - Plan Plan: medically stable fall precaution nutritional support cont on calcium supplemetn - resume fosamax will cont to follow [facility] Nutritional Asmnt/Malnutr-PDOC - Dietary Evaluation Malnutrition Findings (Please click <Entered> for more info): Nutritional Asmnt/Malnutrition Start: 01/04/19 09: 50 Text: Status: Complete Freq: Protocol: Document 01/04/19 14:59 LCHENG (Rec: 01/04/19 15:06 LCJOSEG [id number]) Nutritional Asmnt/Malnutrition Patient General Information Nutritional Screening Moderate Risk Diagnosis psychosis Pertinent Medical Hx/Surgical Hx dementia, DJD, osteoporosis Subjective Information pt seen lying in bed, awake and alert, stated food has beed great. Pt is not a big eater. Encourage to eat balanced meals and pt agreed with it. Per EMR, PO intake 75 -100% Current Diet Order/ Nutrition Support regular Pertinent Medications reviewed Pertinent Labs 12/31 reviewed Nutritional Hx/Data Height 1.65 m Height (Calculated Centimeters) 165.1 Current Weight (lbs) 74.843 kg Weight (Calculated Kilograms) 74.8 Weight (Calculated Grams) 61473.7 [place] Body Weight 125 Body Mass Index (BMI) 27.4 Weight Status Overweight GI Symptoms GI Symptoms None Last BM 01/04 x 2 Difficult in: None Skin Integrity/Comment: intact Current %PO Good (75-100%) Estimated Nutritional Goals BEE in Kcals: Using Current wt Calories/Kcals/Kg 23-27 Kcals Calculated 6863-2839 Protein: Using Current wt Protein g/k.8 Protein Calculated 60 Fluid: ml 1725-1998ml (1ml/kcal) Nutritional Problem No current Nutrition Prob Problem N/A Malnutrition Alert Is there a minimum of two criteria No selected? Query Text:Check all the applicable criteria. A minimum of two criteria are recommended for diagnosis of either severe or non-severe malnutrition. Malnutrition Related to Morbid Obesity Malnutrition related to morbid obesity No Intervention/Recommendation Comments 1. Continue with regular diet as ordered. 2. Monitor PO intake, wt, labs and skin integrity 3. F/U as low risk in 7 days Expected Outcomes/Goals Expected Outcomes/Goals 1. PO intake to meet at least 75% of nutritional needs. 2. Wt stability, skin to remain intact, labs to approach WNL.
[2019-11-17] MEDS: Multivitamin w/ Minerals Tab PO SCH ×2 (10:40→10:42)
--- NOTE | 2019-11-17 15:39 | Internal Medicine Prog Note ---
Internal Medicine Subjective - Subjective Patient seen and examined:: with staff, chart reviewed Patient is:: awake, verbal, interactive, ambulating, confused Per staff patient has:: no adverse event, no episodes of fall, eating well, tolerating meds Internal Medicine Objective - Results Recent Labs: Laboratory Last Values POC Glucose 112 MG/DL (70 - 105) H 08/11/19 21:00 Triglycerides 162 mg/dL (<150) H 12/31/18 08:04 Cholesterol 234 mg/dL (<200) H 12/31/18 08:04 LDL Cholesterol Direct 155 mg/dL (75-193) 12/31/18 08:04 HDL Cholesterol 62 mg/dL (23-92) 12/31/18 08:04 - Physical Exam Vitals and I&O: Vital Signs Temp 97.7 F 11/17/19 05:56 Pulse 97 11/17/19 14:20 Resp 20 11/17/19 14:20 BP 112/54 11/17/19 14:20 Pulse Ox 96 11/17/19 14:20 Intake & Output 11/16/19 11/17/19 11/17/19 18:59 06:59 18:59 Intake Total 120 300 Balance 120 300 Intake: Oral 120 300 Other: # Voids 1 # Bowel Movements 1 0 Stool Characteristics Soft Active Medications: Current Medications Acetaminophen (Tylenol) 650 mg PO Q4H PRN PRN Reason: Mild Pain (1-3) Stop: 12/06/19 19:14 Alendronate Sodium (Fosamax) 70 mg PO We@0630 [facility] Stop: 01/13/20 06:29 Last Admin: 11/14/19 06:55 Dose: 70 mg Donepezil HCl (Aricept) 10 mg PO [facility] Last Admin: 11/16/19 20:25 Dose: 10 mg General: demented, thin HEENT: NC/AT, PERRLA, EOMI Neck: Supple, No JVD, No thyromegaly Lungs: CTAB Cardiovascular: RRR, Normal S1, Normal S2, with murmur Abdomen: soft, thin, non-distended, positive bowel sound Extremities: excoriation Neurological: no change Internal Medicine Assmt/Plan - Assessment Assessment: alzheimers dementia elevated chol djd osteoporosis ho old left hip fx - Plan Plan: medically stable fall precaution nutritional support cont on calcium supplemetn - resume fosamax will cont to follow tom rn Nutritional Asmnt/Malnutr-PDOC - Dietary Evaluation Malnutrition Findings (Please click <Entered> for more info): Nutritional Asmnt/Malnutrition Start: 01/04/19 09: 50 Text: Status: Complete Freq: Protocol: Document 01/04/19 14:59 LCHENG (Rec: 01/04/19 15:06 LCJOSEG [id number]) Nutritional Asmnt/Malnutrition Patient General Information Nutritional Screening Moderate Risk Diagnosis psychosis Pertinent Medical Hx/Surgical Hx dementia, DJD, osteoporosis Subjective Information pt seen lying in bed, awake and alert, stated food has beed great. Pt is not a big eater. Encourage to eat balanced meals and pt agreed with it. Per EMR, PO intake 75 -100% Current Diet Order/ Nutrition Support regular Pertinent Medications reviewed Pertinent Labs 12/31 reviewed Nutritional Hx/Data Height 1.65 m Height (Calculated Centimeters) 165.1 Current Weight (lbs) 74.843 kg Weight (Calculated Kilograms) 74.8 Weight (Calculated Grams) 89989.7 [place] Body Weight 125 Body Mass Index (BMI) 27.4 Weight Status Overweight GI Symptoms GI Symptoms None Last BM 01/04 x 2 Difficult in: None Skin Integrity/Comment: intact Current %PO Good (75-100%) Estimated Nutritional Goals BEE in Kcals: Using Current wt Calories/Kcals/Kg 23-27 Kcals Calculated 9898-3994 Protein: Using Current wt Protein g/k.8 Protein Calculated 60 Fluid: ml 1725-1998ml (1ml/kcal) Nutritional Problem No current Nutrition Prob Problem N/A Malnutrition Alert Is there a minimum of two criteria No selected? Query Text:Check all the applicable criteria. A minimum of two criteria are recommended for diagnosis of either severe or non-severe malnutrition. Malnutrition Related to Morbid Obesity Malnutrition related to morbid obesity No Intervention/Recommendation Comments 1. Continue with regular diet as ordered. 2. Monitor PO intake, wt, labs and skin integrity 3. F/U as low risk in 7 days Expected Outcomes/Goals Expected Outcomes/Goals 1. PO intake to meet at least 75% of nutritional needs. 2. Wt stability, skin to remain intact, labs to approach WNL.
--- NOTE | 2019-11-17 18:54 | Progress Notes ---
DATE: 11/17/2019 SUBJECTIVE: The patient was seen and evaluated. The patient's chart was reviewed. Covering for Dr. Mason. No acute events overnight. Continues to be anxious about her discharge and long stay. MENTAL STATUS EXAMINATION: Stable from last visit. ASSESSMENT AND PLAN: Gravely disabled, awaiting placement. We will continue with primary psychiatrist's treatment plan and goals. JOB# [id number]
[2019-11-18] MEDS: Multivitamin w/ Minerals Tab PO SCH (08:26)
--- NOTE | 2019-11-18 17:47 | Internal Medicine Prog Note ---
Internal Medicine Subjective - Subjective Patient seen and examined:: with staff, chart reviewed Patient is:: awake, verbal, interactive, ambulating, confused Per staff patient has:: no adverse event, no episodes of fall, eating well, tolerating meds Internal Medicine Objective - Results Recent Labs: Laboratory Last Values POC Glucose 112 MG/DL (70 - 105) H 08/11/19 21:00 Triglycerides 162 mg/dL (<150) H 12/31/18 08:04 Cholesterol 234 mg/dL (<200) H 12/31/18 08:04 LDL Cholesterol Direct 155 mg/dL (75-193) 12/31/18 08:04 HDL Cholesterol 62 mg/dL (23-92) 12/31/18 08:04 - Physical Exam Vitals and I&O: Vital Signs Temp 97.7 F 11/18/19 14:00 Pulse 2 11/18/19 14:00 Resp 18 11/18/19 14:00 BP 119/81 11/18/19 14:00 Pulse Ox 99 11/18/19 14:00 Intake & Output 11/17/19 11/18/19 11/18/19 18:59 06:59 18:59 Intake Total 300 Balance 300 Intake: Oral 300 Other: # Voids 2 1 # Bowel Movements 0 0 Stool Characteristics Soft Soft Soft Active Medications: Current Medications Acetaminophen (Tylenol) 650 mg PO Q4H PRN PRN Reason: Mild Pain (1-3) Stop: 12/06/19 19:14 Alendronate Sodium (Fosamax) 70 mg PO We@0630 [facility] Stop: 01/13/20 06:29 Last Admin: 11/14/19 06:55 Dose: 70 mg Donepezil HCl (Aricept) 10 mg PO [facility] Last Admin: 11/17/19 20:47 Dose: 10 mg General: demented, thin HEENT: NC/AT, PERRLA, EOMI Neck: Supple, No JVD, No thyromegaly Lungs: CTAB Cardiovascular: RRR, Normal S1, Normal S2, with murmur Abdomen: soft, thin, non-distended, positive bowel sound Extremities: excoriation Neurological: no change Internal Medicine Assmt/Plan - Assessment Assessment: alzheimers dementia elevated chol djd osteoporosis ho old left hip fx - Plan Plan: medically stable fall precaution nutritional support cont on calcium supplemetn - resume fosamax will cont to follow tom rn Nutritional Asmnt/Malnutr-PDOC - Dietary Evaluation Malnutrition Findings (Please click <Entered> for more info): Nutritional Asmnt/Malnutrition Start: 01/04/19 09: 50 Text: Status: Complete Freq: Protocol: Document 01/04/19 14:59 LCHENG (Rec: 01/04/19 15:06 LCJOSEG [id number]) Nutritional Asmnt/Malnutrition Patient General Information Nutritional Screening Moderate Risk Diagnosis psychosis Pertinent Medical Hx/Surgical Hx dementia, DJD, osteoporosis Subjective Information pt seen lying in bed, awake and alert, stated food has beed great. Pt is not a big eater. Encourage to eat balanced meals and pt agreed with it. Per EMR, PO intake 75 -100% Current Diet Order/ Nutrition Support regular Pertinent Medications reviewed Pertinent Labs 12/31 reviewed Nutritional Hx/Data Height 1.65 m Height (Calculated Centimeters) 165.1 Current Weight (lbs) 74.843 kg Weight (Calculated Kilograms) 74.8 Weight (Calculated Grams) 89055.7 [place] Body Weight 125 Body Mass Index (BMI) 27.4 Weight Status Overweight GI Symptoms GI Symptoms None Last BM 01/04 x 2 Difficult in: None Skin Integrity/Comment: intact Current %PO Good (75-100%) Estimated Nutritional Goals BEE in Kcals: Using Current wt Calories/Kcals/Kg 23-27 Kcals Calculated 1342-8669 Protein: Using Current wt Protein g/k.8 Protein Calculated 60 Fluid: ml 1725-1998ml (1ml/kcal) Nutritional Problem No current Nutrition Prob Problem N/A Malnutrition Alert Is there a minimum of two criteria No selected? Query Text:Check all the applicable criteria. A minimum of two criteria are recommended for diagnosis of either severe or non-severe malnutrition. Malnutrition Related to Morbid Obesity Malnutrition related to morbid obesity No Intervention/Recommendation Comments 1. Continue with regular diet as ordered. 2. Monitor PO intake, wt, labs and skin integrity 3. F/U as low risk in 7 days Expected Outcomes/Goals Expected Outcomes/Goals 1. PO intake to meet at least 75% of nutritional needs. 2. Wt stability, skin to remain intact, labs to approach WNL.
--- NOTE | 2019-11-18 17:48 | Progress Notes ---
DATE: 11/18/2019 SUBJECTIVE: The patient was seen and evaluated. The patient's chart reviewed. Covering for Dr. Mason No acute events overnight. Today on [id number], no SI, HI. Mild anxiety. ASSESSMENT AND PLAN: At ____ awaiting placement. JOB# [id number]
--- NOTE | 2019-11-19 08:16 | Progress Notes ---
DATE: SUBJECTIVE: Chart was reviewed and the patient interviewed. Also discussed the patient's condition with the staff and reviewed records and labs. The patient is pleasantly confused. She also is still going around the unit in a confused state, but with no behavioral issues. She will continue to ask about going home. At the same time, the patient still needs close monitoring and still needs redirections. The patient's gait is steady, using a walker and vital signs are stable and no new labs available for review MENTAL STATUS EXAMINATION: Anxious. Cooperative. No agitation. No hallucinations. ASSESSMENT: The patient is still pleasantly confused and considered to be gravely disabled. TREATMENT PLAN: Continue to monitor her behavior and her condition closely. Also, continue to work on her discharge plans and placement issue. I am waiting for court date to release her money and to get her placed. At the same time, continue close observation and followup. JOB# [id number]
[2019-11-19] MEDS: Multivitamin w/ Minerals Tab PO SCH (08:30)
--- NOTE | 2019-11-19 13:08 | Internal Medicine Prog Note ---
Internal Medicine Subjective - Subjective Patient seen and examined:: with staff, chart reviewed Patient is:: awake, verbal, interactive, ambulating, confused Per staff patient has:: no adverse event, no episodes of fall, eating well, tolerating meds Internal Medicine Objective - Results Recent Labs: Laboratory Last Values POC Glucose 112 MG/DL (70 - 105) H 08/11/19 21:00 Triglycerides 162 mg/dL (<150) H 12/31/18 08:04 Cholesterol 234 mg/dL (<200) H 12/31/18 08:04 LDL Cholesterol Direct 155 mg/dL (75-193) 12/31/18 08:04 HDL Cholesterol 62 mg/dL (23-92) 12/31/18 08:04 - Physical Exam Vitals and I&O: Vital Signs Temp 97.8 F 11/19/19 06:02 Pulse 54 11/19/19 06:02 Resp 19 11/19/19 06:02 BP 104/48 11/19/19 06:02 Pulse Ox 95 11/19/19 06:02 Intake & Output 11/18/19 11/19/19 11/19/19 18:59 06:59 18:59 Intake Total 800 60 Balance 800 60 Intake: Oral 800 60 Other: # Voids 3 1 # Bowel Movements 1 0 Stool Characteristics Soft Soft Soft Active Medications: Current Medications Acetaminophen (Tylenol) 650 mg PO Q4H PRN PRN Reason: Mild Pain (1-3) Stop: 12/06/19 19:14 Alendronate Sodium (Fosamax) 70 mg PO We@0630 [facility] Stop: 01/13/20 06:29 Last Admin: 11/14/19 06:55 Dose: 70 mg Donepezil HCl (Aricept) 10 mg PO [facility] Last Admin: 11/18/19 20:35 Dose: 10 mg General: demented, thin HEENT: NC/AT, PERRLA, EOMI Neck: Supple, No JVD, No thyromegaly Lungs: CTAB Cardiovascular: RRR, Normal S1, Normal S2, with murmur Abdomen: soft, thin, non-distended, positive bowel sound Extremities: excoriation Neurological: no change Internal Medicine Assmt/Plan - Assessment Assessment: alzheimers dementia elevated chol djd osteoporosis ho old left hip fx - Plan Plan: medically stable fall precaution nutritional support cont on calcium supplemetn - resume fosamax will cont to follow dw rn Nutritional Asmnt/Malnutr-PDOC - Dietary Evaluation Malnutrition Findings (Please click <Entered> for more info): Nutritional Asmnt/Malnutrition Start: 01/04/19 09: 50 Text: Status: Complete Freq: Protocol: Document 01/04/19 14:59 [email or web address] (Rec: 01/04/19 15:06 [email or web address] [id number]) Nutritional Asmnt/Malnutrition Patient General Information Nutritional Screening Moderate Risk Diagnosis psychosis Pertinent Medical Hx/Surgical Hx dementia, DJD, osteoporosis Subjective Information pt seen lying in bed, awake and alert, stated food has beed great. Pt is not a big eater. Encourage to eat balanced meals and pt agreed with it. Per EMR, PO intake 75 -100% Current Diet Order/ Nutrition Support regular Pertinent Medications reviewed Pertinent Labs 12/31 reviewed Nutritional Hx/Data Height 1.65 m Height (Calculated Centimeters) 165.1 Current Weight (lbs) 74.843 kg Weight (Calculated Kilograms) 74.8 Weight (Calculated Grams) 17705.7 Curtis Body Weight 125 Body Mass Index (BMI) 27.4 Weight Status Overweight GI Symptoms GI Symptoms None Last BM 01/04 x 2 Difficult in: None Skin Integrity/Comment: intact Current %PO Good (75-100%) Estimated Nutritional Goals BEE in Kcals: Using Current wt Calories/Kcals/Kg 23-27 Kcals Calculated 8311-5375 Protein: Using Current wt Protein g/k.8 Protein Calculated 60 Fluid: ml 1725-1998ml (1ml/kcal) Nutritional Problem No current Nutrition Prob Problem N/A Malnutrition Alert Is there a minimum of two criteria No selected? Query Text:Check all the applicable criteria. A minimum of two criteria are recommended for diagnosis of either severe or non-severe malnutrition. Malnutrition Related to Morbid Obesity Malnutrition related to morbid obesity No Intervention/Recommendation Comments 1. Continue with regular diet as ordered. 2. Monitor PO intake, wt, labs and skin integrity 3. F/U as low risk in 7 days Expected Outcomes/Goals Expected Outcomes/Goals 1. PO intake to meet at least 75% of nutritional needs. 2. Wt stability, skin to remain intact, labs to approach WNL.
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
== END 2019-11-19 13:30 | DRG 57 ==
LOC: GERO 00:15 → UNDODISIN 01-19 16:45 → GERO 05-17 19:59
PROVIDERS: ADMIT Psychiatry & Neurology Psychiatry; ATTEND Psychiatry & Neurology Psychiatry
DX: G30.8 Other Alzheimer's disease (principal); F02.80 Dementia in other diseases classified elsewhere, unspecified severity, without behavioral disturbance, psychotic disturbance, mood disturbance, and anxiety; F23 Brief psychotic disorder; M81.0 Age-related osteoporosis without current pathological fracture; M19.90 Unspecified osteoarthritis, unspecified site; E78.00 Pure hypercholesterolemia, unspecified; E78.5 Hyperlipidemia, unspecified; F41.9 Anxiety disorder, unspecified; Z91.81 History of falling; Z88.8 Allergy status to other drugs, medicaments and biological substances; Z87.81 Personal history of (healed) traumatic fracture
CPT/HCPCS: 36415-UA; 71045-TC; 73501; 78012; 80061-TC; 82948-90; 83036-90; 90899; A9512; G0410; Z7610